=== PATIENT | female | born 1945 | race Caucasian/White ===

== ENCOUNTER 2016-08-31 09:02 | Day surgery (SDC) | payer MEDICARE ==
[2016-08-24 14:10] VITALS: BMI 40.0
[~2016-08-31 09:02] MED LIST: SODIUM CHLORIDE 0.9% 1,000 ML IV SCH; ceFAZolin 1,000 MG in SODIUM CHLORIDE 0.9% IRRIGATIO 250 ML IRRIGATION ONE; ceFAZolin 2 GM in SODIUM CHLORIDE 0.9% 100 ML IVPB ONE
[2016-08-31 09:35] VITALS: RESP 16; TEMP 98.2
[2016-08-31 09:52] LABS: Glucose,Whole Blood 107 mg/dL (75-99)
[2016-08-31] MEDS ORDERED: SODIUM CHLORIDE 0.9% 1,000 ML IV ONE (10:00)
[2016-08-31 10:01] LABS: Basophils % (A) 0 %; CH 23.2; CHCM 30.6; Eosinophils # (A) 0.2 k/uL (0-0.7); Eosinophils % (A) 3 %; HCT 37.6 % (34.0-46.0); HDW 3.09; HGB 11.5 gm/dL (11.4-16.0); Hypochromasia Marked; Luc # (Auto) 0.14; Luc % (Auto) 2; Lymphocytes # (A) 0.9 k/uL (1.0-4.8); Lymphocytes % (A) 14 %; MCH 23.3 pg (25.0-35.0); MCHC 30.5 g/dL (31.0-37.0); MCV 76.2 fL (80.0-100.0); Mean Platelet Volume 6.7; Microcytosis Slight; Monocytes # (A) 0.4 k/uL (0-1.0); Monocytes % (A) 7 %; Neutrophils # (A) 4.7 k/uL (1.3-7.7); Neutrophils % (A) 73 %; RBC 4.93 m/uL (3.80-5.40); RDW 15.5 % (11.5-15.5); WBC 6.5 k/uL (3.8-10.6)
[2016-08-31 10:27] LABS: Potassium 4.5 mmol/L (3.5-5.1)
[2016-08-31 10:58] LABS: INR 1.3 (<1.1); Prothrombin Time 12.6 sec (9.0-12.0)
[2016-08-31] MEDS ORDERED: fentaNYL (PF) 50 MCG/ML 2 ML AMP ONE (13:49)
[2016-08-31] MEDS ORDERED: LIDOCAINE 2% INJ 20 MG/ML SQ ONE (13:50)
[2016-08-31] MEDS ORDERED: fentaNYL (PF) 50 MCG/ML 2 ML AMP IV ONE (13:50)
[2016-08-31] MEDS ORDERED: ACETAMINOPHEN TAB 325 MG TAB PO PRN (14:13)
[2016-08-31 15:08] VITALS: PULSE 70
[2016-08-31 17:28] VITALS: BP 142/74
--- NOTE | 2016-08-31 21:28 | P.PCN ---
Date of Procedure: 08/31/16 Preoperative Diagnosis: Battery depletion Postoperative Diagnosis: The same Procedure(s) Performed: Generator change Description of Procedure: HISTORY: This is a 71-year-old female with history of permanent pacemaker implantation who has reached [facility] and was advised to have generator change. CONSENT: I have discussed the risks and benefits as related to the above mentioned procedure and both sedation/analgesia as well as necessary blood product administration. The patient has indicated understanding and acceptance of the risks of the procedure discussed. PROCEDURE: Patient was brought to the lab in a fasting state. Patient was given IV Versed and fentanyl for sedation. The skin over the existing pulse generator was infiltrated with lidocaine. An incision was made in the skin and was deepened until the pectoral fascia was exposed. Hemostasis was obtained. The existing pulse generator was pulled out of the pocket. The leads were disconnected and were checked for thresholds. THRESHOLDS: ATRIAL: Patient is in atrial fibrillation and thresholds were not measured VENTRICULAR: The minimum patient threshold was 1 V at pulse width of 0.5 ms. The impedance was 464 ohms. R-wave: 8.6 mV THE LEADS: ATRIAL: This is manufactured by [employer] model number is 5592 and the serial number is capital [id number] VENTRICULAR: This is manufactured by [employer]. Model number is 5092. Serial number is [id number] THE EXPLANTED DEVICE: This is manufactured by [employer]. Model number is [id number]. Serial number is [id number] THE NEW DEVICE: This is manufactured by [employer]. Model number is L101 and serial number is [id number] . The leads were then connected to a new pulse generator . Pacemaker seems to function normally. The pocket was irrigated with antibiotics. The pocket was closed in the usual fashion. Pectoral fascia was closed with 2-0 Prolene, the subcutaneous tissue was closed with 3-0 Prolene and the skin was closed with 4-0 Prolene. Patient tolerated the procedure well . Patient will be monitored on the telemetry unit for 2-3 hours. If stable patient be discharged home later today. PLAN: Continue prophylactic antibiotics. Resume home medication FALLOW UP: In one week in the office
== END 2016-08-31 17:28 | disposition home or self-care (01) ==
LOC: CATHEP 09:02
PROVIDERS: ATTEND Internal Medicine Cardiovascular Disease
DX: I50.42 Chronic combined systolic (congestive) and diastolic (congestive) heart failure (principal); Z45.010 Encounter for checking and testing of cardiac pacemaker pulse generator [battery]; I48.2 Chronic atrial fibrillation; Z79.01 Long term (current) use of anticoagulants; I42.8 Other cardiomyopathies; Z95.0 Presence of cardiac pacemaker; Z82.49 Family history of ischemic heart disease and other diseases of the circulatory system; Z87.891 Personal history of nicotine dependence; I25.10 Atherosclerotic heart disease of native coronary artery without angina pectoris; I10 Essential (primary) hypertension; E11.9 Type 2 diabetes mellitus without complications; Z79.84 Long term (current) use of oral hypoglycemic drugs; E78.5 Hyperlipidemia, unspecified; E78.00 Pure hypercholesterolemia, unspecified; Z79.899 Other long term (current) drug therapy; Z88.5 Allergy status to narcotic agent; Z88.8 Allergy status to other drugs, medicaments and biological substances
CPT/HCPCS: 33228; 80048; 85025; 85610; C1785; J2001; J0690; J3010

== ENCOUNTER 2017-04-25 07:35 | Emergency (ER) | payer MEDICARE ==
[2017-04-25] MEDS ORDERED: SODIUM CHLORIDE 0.9% 1,000 ML IV STA (07:58)
[2017-04-25 08:01] LABS: Glucose,Whole Blood 128 mg/dL (75-99)
--- NOTE | 2017-04-25 08:17 | ED ---
Dizziness HPI - General Chief Complaint: Dizziness Stated Complaint: Dizziness Time Seen by Provider: 04/25/17 07:50 Source: patient, RN notes reviewed Mode of arrival: wheelchair Limitations: no limitations - History of Present Illness Initial Comments: This is a 71-year-old female who presents with complaints of dizziness that has been going on for last couple days. She states that 2 days ago she had very dizzy when going to the bathroom and did fall hitting a toilet plunger. Complains of some left leg pain since that time. She complains of dizziness she denies any chest pain she did have some shortness of breath with it also. She denies any head neck or back pain she does have chronic pain however for fibromyalgia. She is concerned about a possible blood clot in the left leg due to the pain she's having. She does deny any palpitations. She does state her blood pressure was changed about a month ago and is not sure whether this has any bearing on it. She does have a pacemaker. This is relatively new. MD Complaint: dizziness, lightheadedness, other - Related Data Home Medications Medication Instructions Recorded Confirmed Atorvastatin [Lipitor] 20 mg PO HS 08/24/16 04/25/17 Furosemide [Lasix] 20 mg PO BID 08/24/16 04/25/17 Metoprolol Tartrate [Lopressor] 25 mg PO BID 08/24/16 04/25/17 Warfarin Sodium [Coumadin] 2.5 mg PO SUTUWETHSA 08/24/16 04/25/17 metFORMIN HCL [Glucophage] 500 mg PO BID 08/24/16 04/25/17 Ferrous Sulfate [Feosol] 325 mg PO DAILY 04/25/17 04/25/17 Mirabegron [Myrbetriq] 25 mg PO DAILY 04/25/17 04/25/17 Warfarin [Coumadin] 3.75 mg PO MOFR 04/25/17 04/25/17 Allergies Allergy/AdvReac Type Severity Reaction Status Date / Time codeine Allergy Unknown Verified 04/25/17 07:42 hydrocodone bitartrate Allergy Nausea & Verified 04/25/17 07:42 [From Vicodin] Vomiting & Diarrhea prednisone Allergy brought on Verified 04/25/17 07:42 diabetes cortisone injections Allergy brought on Uncoded 04/25/17 07:42 diabetes sedatives Allergy "I could Uncoded 04/25/17 07:42 not wake up" steroids Allergy Hallucinati Uncoded 04/25/17 07:42 ons Review of Systems ROS Statement: Those systems with pertinent positive or pertinent negative responses have been documented in the HPI. ROS Other: All systems not noted in ROS Statement are negative. Past Medical History Past Medical History: CVA/TIA, Diabetes Mellitus, Fibromyalgia, Osteoarthritis ( OA), Pneumonia, Skin Disorder Additional Past Medical History / Comment(s): hx hiatal hernia, diarrhea, leakage of urine/urgency, "dry skin", anemia, "gradiant under her heart and blood has to pump upward, not enough pressure" History of Any Multi-Drug Resistant Organisms: None Reported Past Surgical History: Appendectomy, Cholecystectomy, Heart Catheterization, Hysterectomy, Joint Replacement, Orthopedic Surgery, Pacemaker, Tonsillectomy, Tubal Ligation Additional Past Surgical History / Comment(s): cyril heel spurs, left shoulder rotator cuff, bone biopsy, cyril cataracts Past Anesthesia/Blood Transfusion Reactions: Previous Problems w/ Anesthesia, Family History of Problems w/ Anesthesia, Postoperative Nausea & Vomiting (PONV) Additional Past Anesthesia/Blood Transfusion Reaction / Comment(s): "could not wake for several days after knee replacement". brother PONV. Type of Cardiac Device: Permanent Pacemaker Device Placement Date:: 04/2009 Past Psychological History: No Psychological Hx Reported Smoking Status: Former smoker Past Alcohol Use History: None Reported Past Drug Use History: None Reported - Past Family History Father Family Medical History: Cancer General Exam - General Exam Comments Initial Comments: Is a well-developed well-nourished awake alert oriented 3 female Limitations: no limitations General appearance: alert, anxious Head exam: Present: atraumatic, normocephalic, normal inspection Eye exam: Present: normal appearance, PERRL, EOMI. Absent: scleral icterus, conjunctival injection, periorbital swelling ENT exam: Present: mucous membranes dry Neck exam: Present: normal inspection. Absent: tenderness, meningismus, lymphadenopathy Respiratory exam: Present: normal lung sounds bilaterally. Absent: respiratory distress, wheezes, rales, rhonchi, stridor Cardiovascular Exam: Present: regular rate, normal rhythm, normal heart sounds. Absent: systolic murmur, diastolic murmur, rubs, gallop, clicks GI/Abdominal exam: Present: soft, normal bowel sounds, other (Obese abdomen). Absent: distended, tenderness, guarding, rebound, rigid Extremities exam: Present: full ROM, tenderness, normal capillary refill, calf tenderness (Some left calf tenderness noted there is abrasion to the anterior distal left leg no active bleeding no step-off or crepitation. There is tenderness palpation of the lateral aspect of the distal thigh again no step- off or crepitation.). Absent: pedal edema, joint swelling Back exam: Present: normal inspection Neurological exam: Present: alert, oriented X3, CN II-XII intact Psychiatric exam: Present: normal affect, normal mood Skin exam: Present: warm, dry, intact, normal color. Absent: rash Course Vital Signs 04/25/17 04/25/17 04/25/17 07:37 08:37 09:37 Temperature 96.8 F L Pulse Rate 69 82 58 L Respiratory 16 20 18 Rate Blood Pressure 182/84 170/89 167/80 O2 Sat by Pulse 98 100 100 Oximetry 04/25/17 10:37 Temperature Pulse Rate 55 L Respiratory 18 Rate Blood Pressure 169/77 O2 Sat by Pulse 99 Oximetry EKG Findings - EKG Results: EKG: interpreted by SUSANA (Demand Pacemaker rhythm rate 64 QRS 76 QT since QTC of 426/439 left exodeviation LVH) Medical Decision Making - Medical Decision Making Patient is asymptomatic she was able ambulate without difficulty. Did have a long discussion with her regarding the findings she does not want to be admitted to the hospital. She will be discharged to follow-up with her doctor outpatient. Ultrasound showed no evidence of any blood clots. - Lab Data Result diagrams: 04/25/17 09:01 04/25/17 09:01 Lab Results 04/25/17 04/25/17 04/25/17 Range/Units 07:56 09:01 09:01 WBC 6.3 (3.8-10.6) k/uL RBC 4.38 (3.80-5.40) m/uL Hgb 10.5 L (11.4-16.0) gm/dL Hct 34.2 (34.0-46.0) % MCV 78.2 L (80.0-100.0) fL MCH 24.0 L (25.0-35.0) pg MCHC 30.7 L (31.0-37.0) g/dL RDW 16.5 H (11.5-15.5) % Plt Count 189 (150-450) k/uL Neutrophils % 74 % Lymphocytes % 14 % Monocytes % 6 % Eosinophils % 4 % Basophils % 1 % Neutrophils # 4.6 (1.3-7.7) k/uL Lymphocytes # 0.9 L (1.0-4.8) k/uL Monocytes # 0.4 (0-1.0) k/uL Eosinophils # 0.2 (0-0.7) k/uL Basophils # 0.0 (0-0.2) k/uL Hypochromasia Marked Anisocytosis Slight Microcytosis Slight D-Dimer (<0.60) mg/L FEU Sodium 140 (137-145) mmol/L Potassium 4.0 (3.5-5.1) mmol/L Chloride 105 (98-107) mmol/L Carbon Dioxide 26 (22-30) mmol/L Anion Gap 9 mmol/L BUN 16 (7-17) mg/dL Creatinine 0.93 (0.52-1.04) mg/dL Est GFR (MDRD) Af Amer >60 (>60 ml/min/1.73 sqM) Est GFR (MDRD) Non-Af 59 (>60 ml/min/1.73 sqM) Glucose 126 H (74-99) mg/dL POC Glucose (mg/dL) 128 H (75-99) mg/dL POC Glu Ingredient Scaler Helper ID Tom Concepcion Calcium 8.8 (8.4-10.2) mg/dL Magnesium 1.9 (1.6-2.3) mg/dL Total Bilirubin 0.7 (0.2-1.3) mg/dL AST 21 (14-36) U/L ALT 27 (9-52) U/L Alkaline Phosphatase 153 H (38-126) U/L Total Creatine Kinase (30-135) U/L CK-MB (CK-2) (0.0-2.4) ng/mL CK-MB (CK-2) Rel Index Troponin I (0.000-0.034) ng/mL NT-Pro-B Natriuret Pep pg/mL Total Protein 6.5 (6.3-8.2) g/dL Albumin 3.9 (3.5-5.0) g/dL 04/25/17 04/25/17 04/25/17 Range/Units 09:01 09:01 09:01 WBC (3.8-10.6) k/uL RBC (3.80-5.40) m/uL Hgb (11.4-16.0) gm/dL Hct (34.0-46.0) % MCV (80.0-100.0) fL MCH (25.0-35.0) pg MCHC (31.0-37.0) g/dL RDW (11.5-15.5) % Plt Count (150-450) k/uL Neutrophils % % Lymphocytes % % Monocytes % % Eosinophils % % Basophils % % Neutrophils # (1.3-7.7) k/uL Lymphocytes # (1.0-4.8) k/uL Monocytes # (0-1.0) k/uL Eosinophils # (0-0.7) k/uL Basophils # (0-0.2) k/uL Hypochromasia Anisocytosis Microcytosis D-Dimer <0.17 (<0.60) mg/L FEU Sodium (137-145) mmol/L Potassium (3.5-5.1) mmol/L Chloride (98-107) mmol/L Carbon Dioxide (22-30) mmol/L Anion Gap mmol/L BUN (7-17) mg/dL Creatinine (0.52-1.04) mg/dL Est GFR (MDRD) Af Amer (>60 ml/min/1.73 sqM) Est GFR (MDRD) Non-Af (>60 ml/min/1.73 sqM) Glucose (74-99) mg/dL POC Glucose (mg/dL) (75-99) mg/dL POC Glu Ingredient Scaler Helper ID Calcium (8.4-10.2) mg/dL Magnesium (1.6-2.3) mg/dL Total Bilirubin (0.2-1.3) mg/dL AST (14-36) U/L ALT (9-52) U/L Alkaline Phosphatase (38-126) U/L Total Creatine Kinase 61 (30-135) U/L CK-MB (CK-2) 0.6 (0.0-2.4) ng/mL CK-MB (CK-2) Rel Index 1.0 Troponin I <0.012 (0.000-0.034) ng/mL NT-Pro-B Natriuret Pep 2080 pg/mL Total Protein (6.3-8.2) g/dL Albumin (3.5-5.0) g/dL - Radiology Data Radiology results: report reviewed (I did review the imaging and report there is some evidence of some mild failure.), image reviewed Disposition Clinical Impression: Dizzy spells, Chronic anemia, Chronic heart failure, Contusion of leg Disposition: HOME SELF-CARE Condition: Good Instructions: Dizziness (ED), Contusion in Adults (ED) Referrals: Kamaljit Krause MD [Primary Care Provider] - 1-2 days
--- NOTE | 2017-04-25 08:24 | XR ---
EXAMINATION TYPE: XR chest 2V DATE OF EXAM: 04/25/2017 HISTORY: cough. REFERENCE: Previous study dated 05/29/2014. FINDINGS: There is a bipolar pacing device in place on the left. The heart is mildly enlarged. There is vascular congestion and mild interstitial change. There is sca rring in the left midlung. No pleural fluid is seen. IMPRESSION: FINDINGS MOST CONSISTENT WITH MILD HEART FAILURE.
--- NOTE | 2017-04-25 08:55 | US ---
EXAMINATION TYPE: US venous doppler duplex LE LT DATE OF EXAM: 04/25/2017 8:39 AM COMPARISON: None. CLINICAL HISTORY: Pain. Pt fell Monday and has a bruise. Leg pain. On Coumadin. Patient states hav ing a blood clot x 6 years ago but doesn't remember where SIDE PERFORMED: Left TECHNIQUE: The lower extremity deep venous system is examined utilizing real time linear array sonog kieran with graded compression, doppler sonography and color-flow sonography. VESSELS IMAGED: External Iliac Vein (EIV) Common Femoral Vein Deep Femoral Vein Greater Saphenous Vein * Femoral Vein Popliteal Vein Small Saphenous Vein * Proximal Calf Veins (* superficial vessels) No popliteal fossa lesion is seen. Left Leg: Appears negative for DVT IMPRESSION: THIS EXAMINATION IS NEGATIVE FOR DVT WITHIN THE LEFT LEG.
[2017-04-25 09:18] LABS: Anisocytosis Slight; Basophils % (A) 1 %; CH 23.3; CHCM 29.9; Eosinophils # (A) 0.2 k/uL (0-0.7); Eosinophils % (A) 4 %; HCT 34.2 % (34.0-46.0); HDW 3.04; HGB 10.5 gm/dL (11.4-16.0); Hypochromasia Marked; Luc # (Auto) 0.13; Luc % (Auto) 2; Lymphocytes # (A) 0.9 k/uL (1.0-4.8); Lymphocytes % (A) 14 %; MCHC 30.7 g/dL (31.0-37.0); MCV 78.2 fL (80.0-100.0); Mean Platelet Volume 6.5; Microcytosis Slight; Monocytes # (A) 0.4 k/uL (0-1.0); Monocytes % (A) 6 %; Neutrophils # (A) 4.6 k/uL (1.3-7.7); Neutrophils % (A) 74 %; RBC 4.38 m/uL (3.80-5.40); RDW 16.5 % (11.5-15.5); WBC 6.3 k/uL (3.8-10.6); WBC (Perox) 6.16
[2017-04-25 09:30] LABS: ALT 27 U/L (9-52); AST 21 U/L (14-36); Alkaline Phosphatase 153 U/L (38-126); Anion Gap 9 mmol/L; Blood Urea Nitrogen 16 mg/dL (7-17); Calcium 8.8 mg/dL (8.4-10.2); Carbon Dioxide 26 mmol/L (22-30); Chloride 105 mmol/L (98-107); Glucose 126 mg/dL (74-99); Magnesium 1.9 mg/dL (1.6-2.3); Non-African American GFR(MDRD) 59 (>60 ml/min/1.73 sqM); Sodium 140 mmol/L (137-145); Total Bilirubin 0.7 mg/dL (0.2-1.3); Total Protein 6.5 g/dL (6.3-8.2)
--- NOTE | 2017-04-25 10:12 | CT ---
EXAMINATION TYPE: CT brain wo con DATE OF EXAM: 04/25/2017 COMPARISON: NONE HISTORY: Dizziness CT DLP: 1108.4 mGycm. Automated Exposure Control for Dose Reduction was Utilized. TECHNIQUE: CT scan of the head is performed without contrast. FINDINGS: There is no acute intracranial hemorrhage or midline shift identified. There is diffuse v entricular and sulcal prominence consistent with diffuse age-related cerebral atrophy. There is low- attenuation in the periventricular white matter consistent with chronic small vessel ischemic change. The globes are intact. Minimal mucosal thickening is seen within the sphenoid sinuses. Atherosclero sis is noted of the intracranial vasculature. IMPRESSION: No acute intracranial hemorrhage or midline shift. There is diffuse age-related cerebra l atrophy and chronic small vessel ischemic change noted.
[2017-04-25 10:19] LABS: Creatine Kinase 61 U/L (30-135)
[2017-04-25 10:32] LABS: Creatine Kinase MB 0.6 ng/mL (0.0-2.4); Troponin I <0.012 ng/mL (0.000-0.034)
[2017-04-25 10:53] VITALS: RESP 18
[2017-04-25 11:57] VITALS: BP 154/70; PULSE 79; TEMP 96.9
== END 2017-04-25 12:07 | disposition home or self-care (01) ==
LOC: EC 07:35
DX: S80.12XA Contusion of left lower leg, initial encounter (principal); D64.9 Anemia, unspecified; I50.9 Heart failure, unspecified; E11.9 Type 2 diabetes mellitus without complications; M79.7 Fibromyalgia; M19.90 Unspecified osteoarthritis, unspecified site; Z95.0 Presence of cardiac pacemaker; Z86.73 Personal history of transient ischemic attack (TIA), and cerebral infarction without residual deficits; Z87.891 Personal history of nicotine dependence; Z79.01 Long term (current) use of anticoagulants; Z79.84 Long term (current) use of oral hypoglycemic drugs; Z79.899 Other long term (current) drug therapy; Z88.5 Allergy status to narcotic agent; Z88.8 Allergy status to other drugs, medicaments and biological substances; W01.198A Fall on same level from slipping, tripping and stumbling with subsequent striking against other object, initial encounter; Y93.89 Activity, other specified; Y92.002 Bathroom of unspecified non-institutional (private) residence as the place of occurrence of the external cause
CPT/HCPCS: 36415; 70450; 71020; 80053; 82550; 82553; 83735; 83880; 84484; 85025; 85379; 93005; 99284

== ENCOUNTER → 2018-04-25 | Outpatient (CLI) | payer MEDICARE ==
[2018-04-25 10:45] LABS: Anisocytosis Slight; Basophils % (A) 0 %; Eosinophils # (A) 0.3 k/uL (0-0.7); Eosinophils % (A) 5 %; HCT 36.1 % (34.0-46.0); HGB 10.8 gm/dL (11.4-16.0); Hypochromasia Marked; Lymphocytes # (A) 0.9 k/uL (1.0-4.8); Lymphocytes % (A) 17 %; MCH 23.4 pg (25.0-35.0); MCHC 29.8 g/dL (31.0-37.0); MCV 78.5 fL (80.0-100.0); Mean Platelet Volume 6.7; Microcytosis Slight; Monocytes # (A) 0.4 k/uL (0-1.0); Monocytes % (A) 7 %; Neutrophils # (A) 3.5 k/uL (1.3-7.7); Neutrophils % (A) 68 %; Platelet Count 161 k/uL (150-450); RDW 16.8 % (11.5-15.5); WBC 5.1 k/uL (3.8-10.6)
[2018-04-25 10:58] LABS: Albumin 3.8 g/dL (3.5-5.0); Calcium 8.8 mg/dL (8.4-10.2); Potassium 3.9 mmol/L (3.5-5.1); Total Bilirubin 1.1 mg/dL (0.2-1.3); Total Protein 6.5 g/dL (6.3-8.2)
[2018-04-25 22:56] LABS: Hemoglobin A1C 6.8 % (4.0-6.0)
== END | disposition home or self-care (01) ==
LOC: LABWHC1 10:21
PROVIDERS: ATTEND Internal Medicine
DX: E78.2 Mixed hyperlipidemia (principal); E03.9 Hypothyroidism, unspecified; E11.65 Type 2 diabetes mellitus with hyperglycemia; I10 Essential (primary) hypertension
CPT/HCPCS: 36415; 80053; 80061; 83036; 84443; 85025

== ENCOUNTER 2018-10-13 21:03 | Observation (INO) | payer MEDICARE ==
--- NOTE | 2018-10-13 21:15 | ED ---
Syncope HPI - General Chief Complaint: Syncope Stated Complaint: Syncope Time Seen by Provider: 10/13/18 21:14 Source: EMS Mode of arrival: EMS Limitations: no limitations - History of Present Illness Initial Comments: Livier is a pleasant 73-year-old female with history of atrial fibrillation for which she has a demand pacemaker in place. Patient presents the emergency department today via EMS for evaluation of a syncopal episode. Patient reports she was in her usual state of health throughout the day today, this evening she was in the local grocery store shopping, she states she recalls feeling well she recalls shopping for supplies to make in [employer]. She states she began to feel somewhat lightheaded and decided she wanted to find a binge to sit down on the next thing she knows she was on the floor. Family at bedside state that they were called by a witness who said the patient just fell forward and was unconscious. There is no seizure-like activity. She regained consciousness and reported she felt somewhat nauseated but that passed. Patient did have a small abrasion to her left ring finger but no other injuries. Patient reports she has never passed out in the past. She has no history of syncope she has been evaluated for dizziness and lightheadedness but reports she was not feeling dizzy or lightheaded until immediately prior to this event. - Related Data Home Medications Medication Instructions Recorded Confirmed Atorvastatin [Lipitor] 20 mg PO HS 08/24/16 04/25/17 Furosemide [Lasix] 20 mg PO BID 08/24/16 04/25/17 Metoprolol Tartrate [Lopressor] 25 mg PO BID 08/24/16 04/25/17 Warfarin Sodium [Coumadin] 2.5 mg PO SUTUWETHSA 08/24/16 04/25/17 metFORMIN HCL [Glucophage] 500 mg PO BID 08/24/16 04/25/17 Ferrous Sulfate [Feosol] 325 mg PO DAILY 04/25/17 04/25/17 Mirabegron [Myrbetriq] 25 mg PO DAILY 04/25/17 04/25/17 Warfarin [Coumadin] 3.75 mg PO MOFR 04/25/17 04/25/17 Allergies Allergy/AdvReac Type Severity Reaction Status Date / Time codeine Allergy Unknown Verified 04/25/17 07:42 hydrocodone bitartrate Allergy Nausea & Verified 04/25/17 07:42 [From Vicodin] Vomiting & Diarrhea prednisone Allergy brought on Verified 04/25/17 07:42 diabetes cortisone injections Allergy brought on Uncoded 04/25/17 07:42 diabetes sedatives Allergy "I could Uncoded 04/25/17 07:42 not wake up" steroids Allergy Hallucinati Uncoded 04/25/17 07:42 ons Review of Systems ROS Statement: Those systems with pertinent positive or pertinent negative responses have been documented in the HPI. ROS Other: All systems not noted in ROS Statement are negative. Past Medical History Past Medical History: Cancer, CVA/TIA, Diabetes Mellitus, Fibromyalgia, Osteoarthritis (OA), Pneumonia, Skin Disorder Additional Past Medical History / Comment(s): hx hiatal hernia, diarrhea, leakage of urine/urgency, "dry skin", anemia, skin cancer History of Any Multi-Drug Resistant Organisms: None Reported Past Surgical History: Appendectomy, Cholecystectomy, Heart Catheterization, Hysterectomy, Joint Replacement, Orthopedic Surgery, Pacemaker, Tonsillectomy, Tubal Ligation Additional Past Surgical History / Comment(s): cyril heel spurs, left shoulder rotator cuff, bone biopsy, cyril cataracts Past Anesthesia/Blood Transfusion Reactions: Previous Problems w/ Anesthesia, Family History of Problems w/ Anesthesia, Postoperative Nausea & Vomiting (PONV) Additional Past Anesthesia/Blood Transfusion Reaction / Comment(s): "could not wake for several days after knee replacement". brother PONV. Type of Cardiac Device: Permanent Pacemaker Device Placement Date:: 04/2009 Past Psychological History: No Psychological Hx Reported Smoking Status: Former smoker Past Alcohol Use History: None Reported Past Drug Use History: None Reported - Past Family History Father Family Medical History: Cancer General Exam - General Exam Comments Initial Comments: Physical Exam GENERAL: Patient is well-developed and well-nourished. Patient is nontoxic and well-hydrated and is in no distress. HENT: Normocephalic, Atraumatic. EYES: PERRL, EOMI PULMONARY: Unlabored respirations. No audible rales rhonchi or wheezing was noted. CARDIOVASCULAR: Irregularly irregular Pacemaker present left chest Warm and well-perfused extremities ABDOMEN: Soft and nontender with normal bowel sounds. SKIN: Skin is clear with no lesions or rashes and otherwise unremarkable. Small abrasion to left ring finger Contusions on bilateral arms multiple stages of healing : Deferred NEUROLOGIC: Patient is alert and oriented x3. Moving all extremities spontaneously Cranial nerves II through XII grossly intact MUSCULOSKELETAL: Normal extremities with adequate strength and full range of motion. No lower extremity swelling or edema. No calf tenderness. PSYCHIATRIC: Normal psychiatric evaluation. Limitations: no limitations Limitations: no limitations Course Vital Signs 10/13/18 10/13/18 10/13/18 21:07 22:34 23:30 Temperature 97.8 F Pulse Rate 63 68 63 Respiratory 18 18 15 Rate Blood Pressure 166/88 150/89 154/84 O2 Sat by Pulse 97 100 98 Oximetry EKG Findings - EKG Comments: EKG Findings:: EKG obtained at 9:14 PM, rate of 61 and rhythm is atrial fibrillation or noted to be frequent ventricular paced complexes, there is a left axis, no acute ST elevations or depressions there is no evidence of acute ischemia or infarction. Medical Decision Making - Medical Decision Making the patient was seen and evaluated history is obtained from the patient and EMS as well as family at bedside Patient with a cardiac history presenting with a syncopal episode which was witnessed patient has no head or facial trauma Cardiac workup was initiated Troponin negative electrolytes within normal limits her no acute findings on chest x-ray no sign EKG is nonischemic Given the patient's advanced age and syncopal event I do feel there could be a cardiac component she would benefit from further monitoring and evaluation by cardiology. Patient is agreeable to this. Patient care was discussed with her primary care physician Dr. Krause who accepts the admission with consult to cardiology. - Lab Data Result diagrams: 10/13/18 21:20 10/13/18 21:20 Lab Results 10/13/18 10/13/18 10/13/18 Range/Units 21:20 21:20 21:20 WBC 5.8 (3.8-10.6) k/uL RBC 4.68 (3.80-5.40) m/uL Hgb 11.2 L (11.4-16.0) gm/dL Hct 36.0 (34.0-46.0) % MCV 76.8 L (80.0-100.0) fL MCH 23.9 L (25.0-35.0) pg MCHC 31.1 (31.0-37.0) g/dL RDW 16.9 H (11.5-15.5) % Plt Count 178 (150-450) k/uL Neutrophils % 75 % Lymphocytes % 12 % Monocytes % 6 % Eosinophils % 5 % Basophils % 1 % Neutrophils # 4.4 (1.3-7.7) k/uL Lymphocytes # 0.7 L (1.0-4.8) k/uL Monocytes # 0.4 (0-1.0) k/uL Eosinophils # 0.3 (0-0.7) k/uL Basophils # 0.0 (0-0.2) k/uL Hypochromasia Marked Anisocytosis Slight Microcytosis Slight PT (9.0-12.0) sec INR (<1.2) APTT (22.0-30.0) sec Sodium 139 (137-145) mmol/L Potassium (3.5-5.1) mmol/L Chloride 105 (98-107) mmol/L Carbon Dioxide 25 (22-30) mmol/L Anion Gap 9 mmol/L BUN 18 H (7-17) mg/dL Creatinine 0.95 (0.52-1.04) mg/dL Est GFR (CKD-EPI)AfAm 68 (>60 ml/min/1.73 sqM) Est GFR (CKD-EPI)NonAf 59 (>60 ml/min/1.73 sqM) Glucose 154 H (74-99) mg/dL Calcium 9.0 (8.4-10.2) mg/dL Magnesium 1.9 (1.6-2.3) mg/dL Total Bilirubin 1.2 (0.2-1.3) mg/dL AST 23 (14-36) U/L ALT 30 (9-52) U/L Alkaline Phosphatase 131 H (38-126) U/L Total Creatine Kinase 53 (30-135) U/L CK-MB (CK-2) 0.9 (0.0-2.4) ng/mL CK-MB (CK-2) Rel Index 1.7 Troponin I <0.012 (0.000-0.034) ng/mL Total Protein 7.2 (6.3-8.2) g/dL Albumin 4.0 (3.5-5.0) g/dL 10/13/18 Range/Units 21:20 WBC (3.8-10.6) k/uL RBC (3.80-5.40) m/uL Hgb (11.4-16.0) gm/dL Hct (34.0-46.0) % MCV (80.0-100.0) fL MCH (25.0-35.0) pg MCHC (31.0-37.0) g/dL RDW (11.5-15.5) % Plt Count (150-450) k/uL Neutrophils % % Lymphocytes % % Monocytes % % Eosinophils % % Basophils % % Neutrophils # (1.3-7.7) k/uL Lymphocytes # (1.0-4.8) k/uL Monocytes # (0-1.0) k/uL Eosinophils # (0-0.7) k/uL Basophils # (0-0.2) k/uL Hypochromasia Anisocytosis Microcytosis PT 22.4 H (9.0-12.0) sec INR 2.3 H (<1.2) APTT 30.5 H (22.0-30.0) sec Sodium (137-145) mmol/L Potassium (3.5-5.1) mmol/L Chloride (98-107) mmol/L Carbon Dioxide (22-30) mmol/L Anion Gap mmol/L BUN (7-17) mg/dL Creatinine (0.52-1.04) mg/dL Est GFR (CKD-EPI)AfAm (>60 ml/min/1.73 sqM) Est GFR (CKD-EPI)NonAf (>60 ml/min/1.73 sqM) Glucose (74-99) mg/dL Calcium (8.4-10.2) mg/dL Magnesium (1.6-2.3) mg/dL Total Bilirubin (0.2-1.3) mg/dL AST (14-36) U/L ALT (9-52) U/L Alkaline Phosphatase (38-126) U/L Total Creatine Kinase (30-135) U/L CK-MB (CK-2) (0.0-2.4) ng/mL CK-MB (CK-2) Rel Index Troponin I (0.000-0.034) ng/mL Total Protein (6.3-8.2) g/dL Albumin (3.5-5.0) g/dL Disposition Clinical Impression: Syncope and collapse Disposition: ADMITTED IP TO THIS [facility] Condition: Stable Is patient prescribed a controlled substance at d/c from ED?: No Referrals: Kamaljit Krause MD [Primary Care Provider] - 1-2 days
[2018-10-13] MEDS ORDERED: SODIUM CHLORIDE 0.9% 500 ML 500 ML IV STA (21:20)
[2018-10-13 21:37] LABS: Anisocytosis Slight; Basophils % (A) 1 %; Eosinophils # (A) 0.3 k/uL (0-0.7); Eosinophils % (A) 5 %; HGB 11.2 gm/dL (11.4-16.0); Hypochromasia Marked; Lymphocytes # (A) 0.7 k/uL (1.0-4.8); Lymphocytes % (A) 12 %; MCH 23.9 pg (25.0-35.0); MCHC 31.1 g/dL (31.0-37.0); MCV 76.8 fL (80.0-100.0); Mean Platelet Volume 6.4; Microcytosis Slight; Monocytes # (A) 0.4 k/uL (0-1.0); Monocytes % (A) 6 %; Neutrophils # (A) 4.4 k/uL (1.3-7.7); Neutrophils % (A) 75 %; Platelet Count 178 k/uL (150-450); RBC 4.68 m/uL (3.80-5.40); RDW 16.9 % (11.5-15.5); WBC 5.8 k/uL (3.8-10.6)
[2018-10-13 21:46] LABS: INR 2.3 (<1.2); Partial Thromboplastin Time 30.5 sec (22.0-30.0); Prothrombin Time 22.4 sec (9.0-12.0)
[2018-10-13 21:52] LABS: Creatine Kinase 53 U/L (30-135); Magnesium 1.9 mg/dL (1.6-2.3); Total Bilirubin 1.2 mg/dL (0.2-1.3); Total Protein 7.2 g/dL (6.3-8.2)
--- NOTE | 2018-10-13 21:56 | XR ---
EXAMINATION TYPE: XR chest 2V DATE OF EXAM: 10/13/2018 COMPARISON: 04/25/2017 HISTORY: Syncope TECHNIQUE: Frontal and lateral views of the chest are obtained. FINDINGS: Heart is enlarged. There is mild pulmonary congestion. There is coarsening of interstitial markings. There are chest leads. There is left axillary pacemaker with the lead tips in the right ve ntricle. The bones are osteopenic. IMPRESSION: Cardiomegaly and pulmonary fibrosis. Pulmonary congestion without overt heart failure. N o pleural fluid seen to suggest heart failure. No change compared to last exam.
[2018-10-13 22:04] LABS: Creatine Kinase MB 0.9 ng/mL (0.0-2.4); Troponin I <0.012 ng/mL (0.000-0.034)
[2018-10-14 03:49] LABS: Creatine Kinase 52 U/L (30-135)
[2018-10-14 04:03] LABS: Creatine Kinase MB 1.3 ng/mL (0.0-2.4); Troponin I <0.012 ng/mL (0.000-0.034)
[2018-10-14 07:41] LABS: Glucose,Whole Blood 120 mg/dL (75-99)
[2018-10-14] MEDS: INSULIN ASPART (NovoLOG) 100 UNIT/ML VIAL SQ SCH ×4 (08:58→19:44)
--- NOTE | 2018-10-14 10:54 | P.CRDCN ---
History of Present Illness Consult date: 10/14/18 Requesting physician: Kamaljit Krause Consult reason: sycope Chief complaint: Syncope History of present illness: This is a pleasant 73-year-old female who follows regularly with Dr. Ruby in the office. She has a known history of hypertension, hyperlipidemia, diabetes, hypertrophic obstructive cardiomyopathy. Prior pacemaker implantation, chronic persistent atrial fibrillation on Coumadin for anticoagulation. She presents to the hospital following a syncopal episode. According to the patient, she was shopping at [employer], upon walking into the store she states she felt some mild dizziness but not of any significance. As she was shopping in the [employer], she states that she felt as though she needed to sit down or she may pass out. The next thing she recalls is someone over top of her attempting to wake her up. She was on the floor at that time, apparently had fallen prone onto the floor. Patient states she was alert and oriented upon wakening, no loss of bowel or bladder function. EMS was then called. Patient at that time experienced some mild nausea. Her blood pressure on EMS arrival was 168/98. Heart rate in the 60s to 70s. Blood sugar was also checked which came back to be around 150. Her EKG on arrival here showed atrial fibrillation with occasional PVC, controlled ventricular response. Chest x-ray showed cardiomegaly and pulmonary fibrosis. Pulmonary congestion without overt heart failure. Blood pressure here 144/80 with a heart rate in the 60s, 97% on room air. White blood cell count 5.8, hemoglobin 11.2, platelet count 178. INR 2.3. Sodium 139, potassium pending. BUN 18 and creatinine 0.9. Troponins are negative 2. At the time of my examination this morning, patient denies any dizziness or lightheadedness. Past Medical History Past Medical History: Cancer, CVA/TIA, Diabetes Mellitus, Fibromyalgia, Osteoarthritis (OA), Pneumonia, Skin Disorder Additional Past Medical History / Comment(s): hx hiatal hernia, diarrhea, leakage of urine/urgency, "dry skin", anemia, skin cancer History of Any Multi-Drug Resistant Organisms: None Reported Past Surgical History: Appendectomy, Cholecystectomy, Heart Catheterization, Hysterectomy, Joint Replacement, Orthopedic Surgery, Pacemaker, Tonsillectomy, Tubal Ligation Additional Past Surgical History / Comment(s): cyril heel spurs, left shoulder rotator cuff, bone biopsy, cyirl cataracts Past Anesthesia/Blood Transfusion Reactions: Previous Problems w/ Anesthesia, Family History of Problems w/ Anesthesia, Postoperative Nausea & Vomiting (PONV) Additional Past Anesthesia/Blood Transfusion Reaction / Comment(s): "could not wake for several days after knee replacement". brother PONV. Type of Cardiac Device: Permanent Pacemaker Device Placement Date:: 04/2009 Smoking Status: Former smoker - Past Family History Father Family Medical History: Cancer Medications and Allergies Home Medications Medication Instructions Recorded Confirmed Type Atorvastatin [Lipitor] 20 mg PO HS 08/24/16 10/14/18 History Furosemide [Lasix] 20 mg PO BID 08/24/16 10/14/18 History Metoprolol Tartrate [Lopressor] 25 mg PO BID 08/24/16 10/14/18 History Warfarin Sodium [Coumadin] 2.5 mg PO HS 08/24/16 10/14/18 History metFORMIN HCL [Glucophage] 500 mg PO DAILY 08/24/16 10/14/18 History Ferrous Sulfate [Feosol] 325 mg PO DAILY 04/25/17 10/14/18 History Mirabegron [Myrbetriq] 25 mg PO DAILY 04/25/17 10/14/18 History Allergies Allergy/AdvReac Type Severity Reaction Status Date / Time codeine Allergy Unknown Verified 10/14/18 01:53 hydrocodone bitartrate Allergy Nausea & Verified 10/14/18 01:53 [From Vicodin] Vomiting & Diarrhea prednisone Allergy brought on Verified 10/14/18 01:53 diabetes cortisone injections Allergy brought on Uncoded 10/14/18 01:53 diabetes sedatives Allergy "I could Uncoded 10/14/18 01:53 not wake up" steroids Allergy Hallucinati Uncoded 10/14/18 01:53 ons Physical Exam Vitals: Vital Signs Temp Pulse Pulse Pulse Resp BP BP 10/14/18 08:00 97.5 F L 62 16 144/80 10/14/18 03:30 16 10/14/18 03:02 97.9 F 69 15 172/82 10/14/18 01:19 97.5 F L 63 17 160/82 10/13/18 23:30 63 15 154/84 10/13/18 22:34 68 18 150/89 10/13/18 21:07 97.8 F 63 18 166/88 Pulse Ox 10/14/18 08:00 97 10/14/18 03:30 10/14/18 03:02 97 10/14/18 01:19 96 10/13/18 23:30 98 10/13/18 22:34 100 10/13/18 21:07 97 Intake and Output 10/13/18 10/14/18 10/14/18 22:59 06:59 14:59 Other: Voiding Method Toilet Weight 131.542 kg PHYSICAL EXAMINATION: GENERAL: 73-year-old female in no acute distress at the time of my examination HEENT: Head is atraumatic, normocephalic. Pupils equal, round. Sclera anicteric. Conjunctiva are clear. Mucous membranes of the mouth are moist. Neck is supple. There is no elevated jugular venous pressure. Right carotid bruit is heard. HEART EXAMINATION: Heart S1 and S2 irregularly irregular, systolic murmur is heard. CHEST EXAMINATION: Lungs are clear to auscultation and precussion. No chest wall tenderness is noted on palpation or with deep breathing. ABDOMEN: Soft, nontender. Bowel sounds are heard. No organomegaly noted. EXTREMITIES: 2+ peripheral pulses with no evidence of peripheral edema and no calf tenderness noted. NEUROLOGIC patient is awake, alert and oriented 3 . . Results 10/13/18 21:20 10/13/18 21:20 Cardiac Enzymes 10/13/18 10/13/18 10/14/18 Range/Units 21:20 21:20 03:18 AST 23 (14-36) U/L CK-MB (CK-2) 0.9 1.3 (0.0-2.4) ng/mL Troponin I <0.012 <0.012 (0.000-0.034) ng/mL Coagulation 10/13/18 Range/Units 21:20 PT 22.4 H (9.0-12.0) sec APTT 30.5 H (22.0-30.0) sec CBC 10/13/18 Range/Units 21:20 WBC 5.8 (3.8-10.6) k/uL RBC 4.68 (3.80-5.40) m/uL Hgb 11.2 L (11.4-16.0) gm/dL Hct 36.0 (34.0-46.0) % Plt Count 178 (150-450) k/uL Comprehensive Metabolic Panel 10/13/18 Range/Units 21:20 Sodium 139 (137-145) mmol/L Potassium (3.5-5.1) mmol/L Chloride 105 (98-107) mmol/L Carbon Dioxide 25 (22-30) mmol/L BUN 18 H (7-17) mg/dL Creatinine 0.95 (0.52-1.04) mg/dL Glucose 154 H (74-99) mg/dL Calcium 9.0 (8.4-10.2) mg/dL AST 23 (14-36) U/L ALT 30 (9-52) U/L Alkaline Phosphatase 131 H (38-126) U/L Total Protein 7.2 (6.3-8.2) g/dL Albumin 4.0 (3.5-5.0) g/dL Current Medications Generic Name Dose Route Start Last Admin Trade Name Freq PRN Reason Stop Dose Admin Aspirin 325 mg 10/15/18 09:00 Aspirin PO DAILY [facility] Atorvastatin Calcium 20 mg 10/14/18 21:00 Lipitor PO HS [facility] Furosemide 20 mg 10/14/18 09:00 Lasix PO BID [facility] Insulin Aspart 0 unit 10/14/18 07:30 10/14/18 08:58 Novolog SQ Not Given ACHS [facility] Protocol Warfarin Sodium 3.75 mg 10/15/18 18:00 Coumadin PO [email or web address] [facility] Warfarin Sodium 2.5 mg 10/14/18 18:00 Coumadin PO [email or web address] [facility] Intake and Output 10/13/18 10/14/18 10/14/18 22:59 06:59 14:59 Other: Voiding Method Toilet Weight 131.542 kg 10/13/18 21:20 10/13/18 21:20 EKG Interpretations (text) EKG shows atrial fibrillation with a controlled ventricular response, frequent PVCs. Assessment and Plan Plan: Assessment and plan #1 syncope, rule out cardiac causes. We will check the patient's pacemaker as well as orthostatic heart rate and blood pressure every shift. #2 hypertension #3 diabetes #4 hyperlipidemia #5 sinus syndrome with prior pacemaker implantation #6 systolic ejection murmur suggestive of possible aortic stenosis #7 chronic persistent atrial fibrillation on Coumadin for anticoagulation #8 HOCM Plan Patient had an echocardiogram with Doppler study performed 3 weeks ago in the office, we will request a copy of this. We will also check her pacemaker for appropriate function. Check orthostatic heart rate and blood pressure every shift. Patient has been on Coumadin for her atrial fibrillation, I did have a lengthy discussion with her regarding the new her anticoagulants, she is willing to try dose. Continue with IV fluids. We will initiate Eliquis and check regarding coverage. Further recommendations to follow. DNP note has been reviewed, I agree with a documented findings and plan of care. Patient was seen and examined.
[2018-10-14 11:02] LABS: Creatine Kinase 52 U/L (30-135)
[2018-10-14] MEDS: FUROSEMIDE 20 MG TAB PO SCH ×2 (11:08→20:10)
[2018-10-14 11:16] LABS: Creatine Kinase MB 1.3 ng/mL (0.0-2.4); Troponin I <0.012 ng/mL (0.000-0.034)
[2018-10-14 11:37] LABS: Glucose,Whole Blood 127 mg/dL (75-99)
--- NOTE | 2018-10-14 13:12 | P.HPIM ---
History of Present Illness H&P Date: 10/14/18 Livier Kilgore is a 73-year-old female who was brought to [facility] emergency room via EMS after having an episode of syncope with collapse at a local store. Patient was found on the floor unconscious she stated that she felt dizzy and the next thing she knows was somebody standing over her trying to wake her up she is not very clear on the amount of time that she was unconscious. 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 On presentation to emergency room patient was alert and oriented in no apparent distress and glucose level was 150 and research assoc showed atrial fibrillation with a heart rate of 70 At this time patient is alert and oriented 3 in no apparent distress she denies any dizziness she was able to walk to the bathroom and back this morning without any dizziness or lightheadedness no new episodes of the syncope or presyncope. Past Medical History Past Medical History: Cancer, CVA/TIA, Diabetes Mellitus, Fibromyalgia, Osteoarthritis (OA), Pneumonia, Skin Disorder Additional Past Medical History / Comment(s): hx hiatal hernia, diarrhea, leakage of urine/urgency, "dry skin", anemia, skin cancer History of Any Multi-Drug Resistant Organisms: None Reported Past Surgical History: Appendectomy, Cholecystectomy, Heart Catheterization, Hysterectomy, Joint Replacement, Orthopedic Surgery, Pacemaker, Tonsillectomy, Tubal Ligation Additional Past Surgical History / Comment(s): cyril heel spurs, left shoulder rotator cuff, bone biopsy, cyril cataracts Past Anesthesia/Blood Transfusion Reactions: Previous Problems w/ Anesthesia, Family History of Problems w/ Anesthesia, Postoperative Nausea & Vomiting (PONV) Additional Past Anesthesia/Blood Transfusion Reaction / Comment(s): "could not wake for several days after knee replacement". brother PONV. Type of Cardiac Device: Permanent Pacemaker Device Placement Date:: 04/2009 Smoking Status: Former smoker - Past Family History Father Family Medical History: Cancer Medications and Allergies Home Medications Medication Instructions Recorded Confirmed Type Atorvastatin [Lipitor] 20 mg PO HS 08/24/16 10/14/18 History Furosemide [Lasix] 20 mg PO BID 08/24/16 10/14/18 History Metoprolol Tartrate [Lopressor] 25 mg PO BID 08/24/16 10/14/18 History Warfarin Sodium [Coumadin] 2.5 mg PO HS 08/24/16 10/14/18 History metFORMIN HCL [Glucophage] 500 mg PO DAILY 08/24/16 10/14/18 History Ferrous Sulfate [Feosol] 325 mg PO DAILY 04/25/17 10/14/18 History Mirabegron [Myrbetriq] 25 mg PO DAILY 04/25/17 10/14/18 History Allergies Allergy/AdvReac Type Severity Reaction Status Date / Time codeine Allergy Unknown Verified 10/14/18 01:53 hydrocodone bitartrate Allergy Nausea & Verified 10/14/18 01:53 [From Vicodin] Vomiting & Diarrhea prednisone Allergy brought on Verified 10/14/18 01:53 diabetes cortisone injections Allergy brought on Uncoded 10/14/18 01:53 diabetes sedatives Allergy "I could Uncoded 10/14/18 01:53 not wake up" steroids Allergy Hallucinati Uncoded 10/14/18 01:53 ons Physical Exam Vitals: Vital Signs Temp Pulse Pulse Pulse Pulse Pulse Pulse 10/14/18 12:00 97.4 F L 10/14/18 11:53 62 10/14/18 11:30 73 79 69 10/14/18 08:00 97.5 F L 62 10/14/18 03:30 10/14/18 03:02 97.9 F 69 10/14/18 01:19 97.5 F L 63 10/13/18 23:30 63 10/13/18 22:34 68 10/13/18 21:07 97.8 F 63 Resp BP BP BP BP BP Pulse Ox 10/14/18 12:00 97 10/14/18 11:53 16 10/14/18 11:30 158/83 144/84 139/82 10/14/18 08:00 16 144/80 97 10/14/18 03:30 16 10/14/18 03:02 15 172/82 97 10/14/18 01:19 17 160/82 96 10/13/18 23:30 15 154/84 98 10/13/18 22:34 18 150/89 100 10/13/18 21:07 18 166/88 97 Intake and Output 10/13/18 10/14/1810/14/19 22:59 06:59 14:59 Other: Voiding Method Toilet Weight 131.542 kg In general patient is alert and oriented 3 in no apparent distress HEENT head normocephalic and atraumatic Neck is supple no JVD no goiter no lymphadenopathy Chest exam reveals a few scattered crackles no wheezing Cardiac exam reveals irregular heart sounds S1 and S2 no gallops no murmurs Abdomen is soft nontender no organomegaly with normal bowel sounds Extremity exam reveals minimal pretibial edema with skin changes, pulses palpable bilaterally Neurological examination reveals no gross focal deficit Results CBC & Chem 7: 10/13/18 21:20 10/13/18 21:20 Labs: Abnormal Lab Results - Last 24 Hours (Table) 10/13/18 10/13/18 10/13/18 Range/Units 21:20 21:20 21:20 Hgb 11.2 L (11.4-16.0) gm/dL MCV 76.8 L (80.0-100.0) fL MCH 23.9 L (25.0-35.0) pg RDW 16.9 H (11.5-15.5) % Lymphocytes # 0.7 L (1.0-4.8) k/uL PT 22.4 H (9.0-12.0) sec INR 2.3 H (<1.2) APTT 30.5 H (22.0-30.0) sec BUN 18 H (7-17) mg/dL Glucose 154 H (74-99) mg/dL POC Glucose (mg/dL) (75-99) mg/dL Alkaline Phosphatase 131 H (38-126) U/L 10/14/18 10/14/18 Range/Units 07:39 11:35 Hgb (11.4-16.0) gm/dL MCV (80.0-100.0) fL MCH (25.0-35.0) pg RDW (11.5-15.5) % Lymphocytes # (1.0-4.8) k/uL PT (9.0-12.0) sec INR (<1.2) APTT (22.0-30.0) sec BUN (7-17) mg/dL Glucose (74-99) mg/dL POC Glucose (mg/dL) 120 H 127 H (75-99) mg/dL Alkaline Phosphatase (38-126) U/L Thrombosis Risk Factor Assmnt - Choose All That Apply Each Risk Factor Represents 3 Points: Age 75 years or older Thrombosis Risk Factor Assessment Total Risk Factor Score: 3 Thrombosis Risk Factor Assessment Level: Moderate Risk Assessment and Plan Plan: #1 syncopal episode with fall to the floor and loss of consciousness #2 underlying history of atrial fibrillation #3 underlying history of hypertrophic obstructive cardiomyopathy #4 underlying history of hypertension #5 underlying history of hyperlipidemia #6 underlying history of sick sinus syndrome with pacemaker placement At this time patient is admitted to the observation unit, she is maintained on telemetry, will obtain echocardiogram results from cardiology office Will obtain pacemaker interrogation Cardiology consult requested Will follow closely
[2018-10-14 16:48] LABS: Glucose,Whole Blood 153 mg/dL (75-99)
[2018-10-14 16:50] VITALS: RESP 18
[2018-10-14] MEDS ORDERED: WARFARIN 2.5 MG TAB PO SCH (18:00)
[2018-10-14 19:43] LABS: Glucose,Whole Blood 127 mg/dL (75-99)
[2018-10-14] MEDS: APIXABAN 5 MG TAB PO SCH (20:11)
[2018-10-14] MEDS ORDERED: ATORVASTATIN 20 MG TAB PO SCH (21:00)
[2018-10-15 03:15] LABS: Cholesterol 118 mg/dL (<200); HDL Cholesterol 39 mg/dL (40-60); LDL Cholesterol,Calculated 70 mg/dL (0-99); Triglycerides 45 mg/dL (<150)
[2018-10-15 06:39] LABS: Glucose,Whole Blood 123 mg/dL (75-99)
[2018-10-15] MEDS: INSULIN ASPART (NovoLOG) 100 UNIT/ML VIAL SQ SCH ×2 (08:09→11:41)
[2018-10-15] MEDS ORDERED: ASPIRIN 325 MG TAB PO SCH (09:00)
[2018-10-15] MEDS: FERROUS SULFATE 325 MG TAB PO SCH ×2 (09:00→09:04)
[2018-10-15] MEDS: FUROSEMIDE 20 MG TAB PO SCH (09:00)
[2018-10-15] MEDS ORDERED: MYBETRIQ 25 MG PO SCH (09:00)
[2018-10-15] MEDS: APIXABAN 5 MG TAB PO SCH (09:00)
[2018-10-15 10:04] LABS: Anisocytosis Slight; Basophils % (A) 1 %; Eosinophils # (A) 0.2 k/uL (0-0.7); Eosinophils % (A) 4 %; HCT 35.5 % (34.0-46.0); HGB 10.6 gm/dL (11.4-16.0); Hypochromasia Marked; Lymphocytes # (A) 0.8 k/uL (1.0-4.8); Lymphocytes % (A) 17 %; MCH 23.4 pg (25.0-35.0); MCHC 29.7 g/dL (31.0-37.0); MCV 78.7 fL (80.0-100.0); Mean Platelet Volume 6.7; Microcytosis Slight; Monocytes # (A) 0.4 k/uL (0-1.0); Monocytes % (A) 9 %; Neutrophils # (A) 3.1 k/uL (1.3-7.7); Neutrophils % (A) 67 %; Platelet Count 156 k/uL (150-450); RBC 4.52 m/uL (3.80-5.40); WBC 4.6 k/uL (3.8-10.6)
[2018-10-15 10:12] LABS: Albumin 3.7 g/dL (3.5-5.0); Calcium 8.8 mg/dL (8.4-10.2); Potassium 4.3 mmol/L (3.5-5.1); Total Bilirubin 1.3 mg/dL (0.2-1.3); Total Protein 6.6 g/dL (6.3-8.2)
[2018-10-15] MEDS ORDERED: METOPROLOL TARTRATE 25 MG TAB PO SCH (10:45)
[2018-10-15 11:36] LABS: Glucose,Whole Blood 116 mg/dL (75-99)
--- NOTE | 2018-10-15 12:13 | P.PN ---
Subjective This is a pleasant 73-year-old female past medical history significant for chronic persistent atrial fibrillation on long-term anticoagulation, hypertension, dyslipidemia, diabetes mellitus, hypertrophic obstructive cardiomyopathy and prior pacemaker implantation. Pacemaker interrogation performed yesterday revealed on she had 2 brief less than 1 minute episodes of non-sustained VT with rate 176. There was no events around the time of her syncopal episode. Echocardiogram obtained in the office 09/21/2018 reveals reserved left ventricular systolic function with ejection fraction 55% with dynamic LVOT gradient of 39 mmHg, moderately dilated left atrium, moderately dilated right ventricle with decreased function, moderately dilated right atrium, mild to moderate mitral regurgitation, the aortic valve has a subaortic membrane, mildly calcified and mild aortic regurgitation. Orthostatic vital signs obtained yesterday are negative for hypertension. Currently maintained on atorvastatin 20 mg daily, Lasix 20 mg twice a day and eliquis 5 mg twice a day was started yesterday. Case management has checked the cost and the patient is agreeable to make the change. Lopressor was recommended however, the patient states she already takes that at home it just wasn't documented on admission. She denies chest pain, shortness of breath, dizziness, nausea, vomiting, palpitations or diaphoresis. Blood pressure 162/84 heart rate 81. GENERAL: Well-appearing, well-nourished and in no acute distress. NECK: Supple without JVD or thyromegaly. LUNGS: Breath sounds clear to auscultation bilaterally. Respiration equal and unlabored. No wheezes, rales or rhonchi. HEART: Irregular rate and rhythm with systolic ejection murmur at the base, no rubs or gallops. S1 and S2 heard. EXTREMITIES: Normal range of motion, no edema. No clubbing or cyanosis. Peripheral pulses intact. ASSESSMENT Syncope. Hypertension Sick sinus syndrome status post permanent pacemaker implantation Chronic persistent atrial fibrillation on long-term anticoagulation Hypertrophic obstructive cardiomyopathy Dyslipidemia Diabetes mellitus PLAN Resume her lopressor 50 mg BID that she takes daily at home. Increase activity and ambulation in the halls, if she is asymptomatic she is stable from a cardiac perspective. Follow up upon discharge with Dr. Ruby. Nurse Practitioner note has been reviewed, I agree with a documented findings and plan of care. Patient was seen and examined. Objective - Vital Signs Vital signs: Vital Signs Temp 97.5 F L 10/15/18 06:57 Pulse 81 10/15/18 06:57 Resp 18 10/15/18 06:57 BP 162/84 10/15/18 06:57 Pulse Ox 96 10/15/18 06:57 Intake & Output 10/14/18 10/15/18 10/15/18 18:59 06:59 18:59 Other: Voiding Method Toilet Toilet # Voids 1 - Labs CBC & Chem 7: 10/15/18 09:39 10/15/18 09:39 Labs: Abnormal Lab Results - Last 24 Hours (Table) 10/13/18 10/14/18 10/14/18 Range/Units 21:20 16:46 19:41 Hgb (11.4-16.0) gm/dL MCV (80.0-100.0) fL MCH (25.0-35.0) pg MCHC (31.0-37.0) g/dL RDW (11.5-15.5) % Lymphocytes # (1.0-4.8) k/uL BUN (7-17) mg/dL Glucose (74-99) mg/dL POC Glucose (mg/dL) 153 H 127 H (75-99) mg/dL HDL Cholesterol 39 L (40-60) mg/dL 10/15/18 10/15/18 10/15/18 Range/Units 06:38 09:39 09:39 Hgb 10.6 L (11.4-16.0) gm/dL MCV 78.7 L (80.0-100.0) fL MCH 23.4 L (25.0-35.0) pg MCHC 29.7 L (31.0-37.0) g/dL RDW 17.0 H (11.5-15.5) % Lymphocytes # 0.8 L (1.0-4.8) k/uL BUN 18 H (7-17) mg/dL Glucose 125 H (74-99) mg/dL POC Glucose (mg/dL) 123 H (75-99) mg/dL HDL Cholesterol (40-60) mg/dL 10/15/18 Range/Units 11:35 Hgb (11.4-16.0) gm/dL MCV (80.0-100.0) fL MCH (25.0-35.0) pg MCHC (31.0-37.0) g/dL RDW (11.5-15.5) % Lymphocytes # (1.0-4.8) k/uL BUN (7-17) mg/dL Glucose (74-99) mg/dL POC Glucose (mg/dL) 116 H (75-99) mg/dL HDL Cholesterol (40-60) mg/dL
[2018-10-15 12:15] LABS: Hemoglobin A1C 6.6 % (4.0-6.0)
[2018-10-15 12:44] VITALS: BP 131/81; TEMP 97.3
[2018-10-15 12:46] VITALS: PULSE 80
--- NOTE | 2018-10-15 14:33 | P.DS ---
Providers Date of admission: 10/14/18 00:25 Expected date of discharge: 10/15/18 Attending physician: Kamaljit Krause Consults: 10/14/18 00:16 Consult Physician Urgent Consulting Provider: [facility] Consult Reason/Comments: syncope, afib, Do you want consulting provider notified?: Yes, Notify in am Primary care physician: Kamaljit Krause [facility] Course: Discharge diagnosis #1 syncopal episode with fall to the floor and loss of consciousness #2 underlying history of atrial fibrillation #3 underlying history of hypertrophic obstructive cardiomyopathy #4 underlying history of hypertension #5 underlying history of hyperlipidemia #6 underlying history of sick sinus syndrome with pacemaker placement Per cardiology patient with a coagulation has been changed from Coumadin to eliquis. Patient is agreeable to co-pay cost. Prescription given to patient from cardiology for eliquis prescription. Patient to follow up with cardiology services for anticoagulation management. Patient reports rarely takes Lopressor at home patient is to resume dose. Patient had 2-D echo obtained in 09/21/2018 which revealed an EF of 55%. Patient's pacemaker was interrogated with no changes. Orthostatics obtained. Patient has been up ambulating the halls without any difficulty. Patient has been cleared for discharge from cardiology standpoint H resume doseospital course Livier Kilgore is a 73-year-old female who was brought to [facility] emergency room via EMS after having an episode of syncope with collapse at a local store. Patient was found on the floor unconscious she stated that she felt dizzy and the next thing she knows was somebody standing over her trying to wake her up she is not very clear on the amount of time that she was unconscious. 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 On presentation to emergency room patient was alert and oriented in no apparent distress and glucose level was 150 and cardiac monitor technician showed atrial fibrillation with a heart rate of 70 At this time patient is alert and oriented 3 in no apparent distress she denies any dizziness she was able to walk to the bathroom and back this morning without any dizziness or lightheadedness no new episodes of the syncope or presyncope. On 10/15/2018 patient's alert and oriented 3. At this time patient denies chest pain or shortness breath. Patient denies nausea vomiting or diarrhea. Patient denies any urinary burning or frequency. Per cardiology patient anticoagulation for atrial fibrillation has been changed to eliquis 5 mg twice a day. Patient is agreeable to co-pay cost. Prescription given to patient per cardiology. Patient also to resume home Lopressor dose. Patient reports she does take Lopressor home but is currently not listed on her home medications but patient reports she does have it at home. At this time patient has been up and leaving the halls without episodes of dizziness . I performed an examination of the patient and discussed their management with the Nurse Practitioner. I have reviewed the Nurse Practitioner's notes and agree with the documented findings and plan of care Patient Condition at Discharge: Stable Plan - Discharge Summary New Discharge Prescriptions: New Mirabegron [Myrbetriq] 25 mg PO DAILY Metoprolol Tartrate [Lopressor] 50 mg PO BID tab Apixaban [Eliquis] 5 mg PO BID 30 Days #60 tab Continue metFORMIN HCL [Glucophage] 500 mg PO DAILY Furosemide [Lasix] 20 mg PO BID Atorvastatin [Lipitor] 20 mg PO HS Ferrous Sulfate [Iron (65 MG Elemental)] 325 mg PO DAILY Tolterodine Tartrate [Detrol LA] 4 mg PO DAILY Discontinued Warfarin Sodium [Coumadin] 2.5 mg PO HS Discharge Medication List Atorvastatin [Lipitor] 20 mg PO HS 08/24/16 [History] Furosemide [Lasix] 20 mg PO BID 08/24/16 [History] metFORMIN HCL [Glucophage] 500 mg PO DAILY 08/24/16 [History] Ferrous Sulfate [Iron (65 MG Elemental)] 325 mg PO DAILY 04/25/17 [History] Tolterodine Tartrate [Detrol LA] 4 mg PO DAILY 10/14/18 [History] Apixaban [Eliquis] 5 mg PO BID 30 Days #60 tab 10/15/18 [Rx] Metoprolol Tartrate [Lopressor] 50 mg PO BID tab 10/15/18 [Rx] Mirabegron [Myrbetriq] 25 mg PO DAILY 10/15/18 [Rx] Follow up Appointment(s)/Referral(s): Kamaljit Krause MD [Primary Care Provider] - 1-2 days Lexi Ruby MD [STAFF PHYSICIAN] - 02/25/19 8:30 am Activity/Diet/Wound Care/Special Instructions: Patient is requesting eliquis prescription be called into her pharmacy. Prescription for eliquis 5 mg twice a day electronically sent to patient's pharmacy. Patient to follow-up with cardiology services Diet heart healthy Activity as tolerated Patient are he takes Lopressor at home not new med. does not require prescription Discharge Disposition: HOME SELF-CARE
[2018-10-15] MEDS ORDERED: WARFARIN 2.5 MG TAB PO SCH (18:00)
[2018-10-15] MEDS ORDERED: METOPROLOL TARTRATE 50 MG TAB PO SCH (21:00)
== END 2018-10-15 16:39 | disposition home or self-care (01) ==
LOC: EC 21:03 → 1SOBS 10-14 00:25
PROVIDERS: ADMIT Internal Medicine; ATTEND Internal Medicine
DX: R55 Syncope and collapse (principal); I48.2 Chronic atrial fibrillation; I42.1 Obstructive hypertrophic cardiomyopathy; I10 Essential (primary) hypertension; E78.5 Hyperlipidemia, unspecified; I48.1 Persistent atrial fibrillation; I25.5 Ischemic cardiomyopathy; Z95.0 Presence of cardiac pacemaker; R11.0 Nausea; R42 Dizziness and giddiness; M79.7 Fibromyalgia; E11.9 Type 2 diabetes mellitus without complications; M19.90 Unspecified osteoarthritis, unspecified site; S60.415A Abrasion of left ring finger, initial encounter; W18.30XA Fall on same level, unspecified, initial encounter; Z79.01 Long term (current) use of anticoagulants; Z79.84 Long term (current) use of oral hypoglycemic drugs; Z79.899 Other long term (current) drug therapy; Z88.5 Allergy status to narcotic agent; Z88.8 Allergy status to other drugs, medicaments and biological substances; Z86.73 Personal history of transient ischemic attack (TIA), and cerebral infarction without residual deficits; Z87.01 Personal history of pneumonia (recurrent); Z87.2 Personal history of diseases of the skin and subcutaneous tissue; Z85.828 Personal history of other malignant neoplasm of skin; Z87.891 Personal history of nicotine dependence; Y92.512 Supermarket, store or market as the place of occurrence of the external cause; Z90.49 Acquired absence of other specified parts of digestive tract; Z90.710 Acquired absence of both cervix and uterus; Z98.42 Cataract extraction status, left eye; Z98.41 Cataract extraction status, right eye; Z96.60 Presence of unspecified orthopedic joint implant; Z96.659 Presence of unspecified artificial knee joint; Z80.9 Family history of malignant neoplasm, unspecified
CPT/HCPCS: 96360; 96361; 99285; 36415; 93005; 80061; 80053 ×2; 82550 ×2; 82553 ×2; 83735; 84484 ×2; 85025 ×2; 85610; 85730; 83036; 71046; G0378 ×2

== ENCOUNTER 2019-04-22 12:07 | Inpatient (IN) | payer MEDICARE ==
--- NOTE | 2019-04-22 13:21 | P.HPIM ---
History of Present Illness H&P Date: 04/22/19 Chief Complaint: passed out This is a 73-year-old female with a known history of atrial fibrillation anticoagulated with Eliquis, hypertrophic obstructive cardiomyopathy, sick sinus syndrome with pacemaker, hyperlipidemia, hypothyroidism, diabetes mellitus type 2, fibromyalgia, iron deficiency anemia and skin cancer. She is a direct admit from Dr. Krause's office. Patient is admitted to the hospital for a syncopal episode. Yesterday patient was walking to her mailbox when she became dizzy. She turned around and try to get back to the house. However, she passed out landing on the ground. Patient feels that she may have passed out for a few seconds. When she came to she was aware of her surroundings. At that time she did injure her left hand and wrist as well as her right knee. Patient's helped her get back into the house. Patient reports having incontinence of stool upon standing and getting into the house. But she does report taking 4 stool softeners for constipation earlier that day. Denies any incontinence of urine. She's had syncopal episodes in the past. Patient denies any chest pain or heart palpitations. She does report some shortness of breath but nothing worse than usual. Denies any cough, fever, chills, sweats, nausea or vomiting, bowel movement changes or urinary symptoms. Patient is been admitted to the hospital for syncopal workup. Cardiology is been placed in consult, check computed tomography scan of the brain echo and carotid. She was placed on telemetry monitoring for any cardiac arrhythmias. X-rays of the injured areas including left hand and wrist and right knee have been ordered. Review of Systems Please refer to HPI otherwise unremarkable Past Medical History Past Medical History: Cancer, CVA/TIA, Diabetes Mellitus, Fibromyalgia, Osteoarthritis (OA), Pneumonia, Skin Disorder Additional Past Medical History / Comment(s): hx hiatal hernia, diarrhea, leakage of urine/urgency, "dry skin", anemia, skin cancer History of Any Multi-Drug Resistant Organisms: None Reported Past Surgical History: Appendectomy, Cholecystectomy, Heart Catheterization, Hysterectomy, Joint Replacement, Orthopedic Surgery, Pacemaker, Tonsillectomy, Tubal Ligation Additional Past Surgical History / Comment(s): cyril heel spurs, left shoulder rotator cuff, bone biopsy, cyril cataracts Past Anesthesia/Blood Transfusion Reactions: Previous Problems w/ Anesthesia, Family History of Problems w/ Anesthesia, Postoperative Nausea & Vomiting (PONV) Additional Past Anesthesia/Blood Transfusion Reaction / Comment(s): "could not wake for several days after knee replacement". brother PONV. Type of Cardiac Device: Permanent Pacemaker Device Placement Date:: 04/2009 Smoking Status: Former smoker - Past Family History Father Family Medical History: Cancer Medications and Allergies Home Medications Medication Instructions Recorded Confirmed Type Atorvastatin [Lipitor] 20 mg PO HS 08/24/16 04/22/19 History Furosemide [Lasix] 20 mg PO BID 08/24/16 04/22/19 History metFORMIN HCL [Glucophage] 500 mg PO BID 08/24/16 04/22/19 History Tolterodine Tartrate [Detrol LA] 4 mg PO DAILY 10/14/18 04/22/19 History Apixaban [Eliquis] 5 mg PO BID 30 Days #60 tab 10/15/18 04/22/19 Rx Metoprolol Tartrate [Lopressor] 50 mg PO BID tab 10/15/18 04/22/19 Rx Levothyroxine Sodium [Synthroid] 25 mcg PO DAILY 04/22/19 04/22/19 History Allergies Allergy/AdvReac Type Severity Reaction Status Date / Time codeine Allergy Unknown Verified 04/22/19 12:49 hydrocodone bitartrate Allergy Nausea & Verified 04/22/19 12:49 [From Vicodin] Vomiting & Diarrhea prednisone Allergy brought on Verified 04/22/19 12:49 diabetes cortisone injections Allergy brought on Uncoded 10/14/18 01:53 diabetes sedatives Allergy "I could Uncoded 10/14/18 01:53 not wake up" steroids Allergy Hallucinati Uncoded 10/14/18 01:53 ons Physical Exam Vitals: Vital Signs Temp Pulse Resp BP Pulse Ox 04/22/19 13:06 97.3 F L 87 18 155/78 98 Intake and Output 04/21/19 04/22/19 04/22/19 22:59 06:59 14:59 Other: Weight 84.2 kg Head normocephalic. Patient does have some bruising on the left side of her chin and cuts on her bottom lip Neck supple Lungs clear to auscultation bilaterally no wheezing or crackles Heart irregular rhythm S1-S2, no rub or gallop positive murmur Abdomen is soft nontender nondistended positive bowel sounds no hepatosplenomegaly Extremities no edema. Rash noted along both tibia is not new. Patient has swelling in the left hand and wrist with bruising and limited range of motion. Swelling and bruising noted in right knee Neuro alert and orientated to 3 Assessment and Plan Assessment: 1. Syncopal episode with fall and collapse: Admit to observation. Check computed tomography scan of brain to rule out brain bleed due to patient being on Eliquis. Check 2-D echo to assess left ventricle function and any valvular abnormality, check carotid ultrasound. Consult cardiology. Patient patient on telemetry monitoring for any cardiac arrhythmias. Check troponin. Check orthostatic blood pressure 2. Left hand and wrist swelling and bruising and right knee bruising and swelling. X-rays of left hand and wrist and knee ordered. Tylenol ordered as needed for pain 3. History of hypertrophic cardiomyopathy 4. History of sick sinus syndrome with pacemaker placement 5. History of chronic persistent atrial fibrillation anticoagulated with Eliquis. Continue metoprolol for rate control 6. Hyperlipidemia continue statin 7. Hypothyroidism continue Synthroid 8. Diabetes mellitus type 2: Resume metformin. Add NovoLog sliding scale coverage with Accu-Cheks every before meals and at bedtime. Check hemoglobin A1c 9. History of fibromyalgia 10. Prior history of iron deficiency anemia GI prophylaxis Pepcid and DVT prophylaxis Eliquis Time with Patient: Greater than 30 (Greater than 50% of the total time spent in counseling and coordination of care.I performed an examination of the patient and discussed their management with the physician Creel Clerk. I have reviewed the Physician Creel Clerk's notes and agree with the documented findings and plan of care)
--- NOTE | 2019-04-22 13:29 | CT ---
EXAMINATION TYPE: CT brain wo con DATE OF EXAM: 04/22/2019 COMPARISON: 04/25/2017 HISTORY: syncope CT DLP: 1098.4 mGycm Automated exposure control for dose reduction was used. FINDINGS: There is no acute intracranial hemorrhage or midline shift identified. There is diffuse ventricular a nd sulcal prominence consistent with diffuse age-related cerebral atrophy. There is low-attenuation i n the periventricular white matter consistent with chronic small vessel ischemic change. The globes a re intact. Minimal mucosal thickening is seen within the sphenoid sinuses. Atherosclerosis is noted o f the intracranial vasculature. Small focal area of low attenuation in the right thalamus suggestive of remote lacunar infarct. IMPRESSION: No acute intracranial hemorrhage or midline shift. There is diffuse age-related cerebral atrophy and chronic small vessel ischemic change noted. NORMAL PRESSURE HYDROCEPHALUS IN THE DIFFERENTIAL DIAGNOS IS.
--- NOTE | 2019-04-22 14:40 | US ---
EXAMINATION TYPE: US carotid duplex BILAT DATE OF EXAM: 04/22/2019 COMPARISON: NONE CLINICAL HISTORY: syncope. EXAM MEASUREMENTS: RIGHT: Peak Systolic Velocity (PSV) cm/sec ----- Right CCA: 63.8 ----- Right ICA: 45.9 ----- Right ECA: 62.5 ICA/CCA ratio: 0.7 RIGHT: End Diastole cm/sec ----- Right CCA: 11.6 ----- Right ICA: 9.8 ----- Right ECA: 8.6 LEFT: Peak Systolic Velocity (PSV) cm/sec ----- Left CCA: 58.9 ----- Left ICA: 13.4 ----- Left ECA: 50.6 ICA/CCA ratio: 1.4 LEFT: End Diastole cm/sec ----- Left CCA: 13.4 ----- Left ICA: 11.9 ----- Left ECA: 0.0 VERTEBRALS (direction of flow): Right Vertebral: Antegrade Left Vertebral: Antegrade Rhythm: Normal Atherosclerotic changes bilaterally. Calcified plaque bilateral bulbs, L>R IMPRESSION: Mild degree of grayscale atheromatous plaquing with no sonographically evident hemodynam ically significant stenosis within either visualized carotid arterial system. Criteria for Assigning % of Stenosis / Diameter reduction (Estimation based on the indirect measurements of the internal carotid artery velocities (ICA PSV). 1. Normal (no stenosis)=ICA PSV < 125 cm/s: ratio < 2.0: ICA EDV<40 cm/s. 2. Less than 50% stenosis=ICA PSV < 125 cm/s: ratio < 2.0: ICA EDV<40 cm/s. 3. 50 to 69% stenosis=ICA PSV of 125 to 230 cm/s: ration 2.0 ? 4.0: ICA EDV 40-100 cm/s. 4. Greater than 70% stenosis to near occlusion= ICA PSV > 230 cm/s: ratio > 4.0: ICA EDV > 100 cm/s. 5. Near occlusion= ICA PSV velocities may be low or undetectable: variable ratio and ICA EDV. 6. Total occlusion=unable to detect flow.
--- NOTE | 2019-04-22 14:51 | XR ---
EXAMINATION TYPE: XR hand complete LT, XR wrist complete LT DATE OF EXAM: 04/22/2019 CLINICAL HISTORY: Left hand and wrist pain after fall TECHNIQUE: Frontal, lateral and oblique images of the left wrist and hand are obtained. Scaphoid vie w was also obtained. COMPARISON: None. FINDINGS: There is diffuse osseous demineralization. There is a transversely oriented nondisplaced, n oncomminuted fracture of the proximal metaphysis of the second metacarpal. Periosteal reaction/cortic al thickening of the distal diaphysis of the second digit as sequela of remote injury. There is subtl e questionable offset of the mid pole of the scaphoid. The joint spaces in the left hand and wrist ar e normal with joint space narrowing of the distal interphalangeal joints and to a lesser degree of th e proximal interphalangeal joints as well as the first carpometacarpal joint. There is opposing surfa ce sclerosis and ulnar deviation of the distal third interphalangeal joint. Overhanging edges are see n in the third interphalangeal joint. The overlying soft tissue appears unremarkable. IMPRESSION: 1. Acute transversely oriented noncomminuted, nondisplaced fracture proximal second metacarpal metaph ysis of the left hand. 2. Subtle questionable offset of the scaphoid. If there is snuffbox tenderness CT would be recommende d. 3. Healed fracture deformity of the distal diaphysis of the second metacarpal. 3. Generalized osseous demineralization. 4. [id number] arthropathy of the left hand most pronounced of the distal interphalangeal joint of the third digit with ulnar subluxation.
--- NOTE | 2019-04-22 14:55 | XR ---
EXAMINATION TYPE: XR knee complete RT DATE OF EXAM: 04/22/2019 CLINICAL HISTORY: Right knee pain TECHNIQUE: Three views of the right knee are obtained. COMPARISON: None. FINDINGS: Diffuse osseous demineralization is present. There is no acute fracture/dislocation evident in right knee. The tri-compartment joint spaces appear aligned however there are tricompartmental o steophytes and medial compartment as well as patellofemoral compartment joint space narrowing. There is generalized subcutaneous edema. Healed fracture deformity of the proximal fibular diaphysis is see n. IMPRESSION: 1. No acute fracture or dislocation in the right knee. 2. Moderate tricompartmental arthropathy. 3. Old healed proximal fibular diaphyseal fracture. 4. Generalized osseous demineralization and generalized subcutaneous edema the visualized right lower extremity.
[2019-04-22 15:26] LABS: Anisocytosis Slight; Basophils # (A) 0.1 k/uL (0-0.2); Basophils % (A) 1 %; Eosinophils # (A) 0.2 k/uL (0-0.7); Eosinophils % (A) 4 %; HCT 36.3 % (34.0-46.0); HGB 11.1 gm/dL (11.4-16.0); Hypochromasia Marked; Lymphocytes # (A) 0.7 k/uL (1.0-4.8); Lymphocytes % (A) 12 %; MCHC 30.6 g/dL (31.0-37.0); Mean Platelet Volume 6.5; Microcytosis Slight; Monocytes # (A) 0.4 k/uL (0-1.0); Monocytes % (A) 7 %; Neutrophils # (A) 4.5 k/uL (1.3-7.7); Neutrophils % (A) 75 %; Platelet Count 167 k/uL (150-450); RBC 4.84 m/uL (3.80-5.40); RDW 17.4 % (11.5-15.5); WBC 6.1 k/uL (3.8-10.6)
[2019-04-22 15:31] LABS: Albumin 4.1 g/dL (3.5-5.0); Potassium 3.9 mmol/L (3.5-5.1); Total Protein 7.5 g/dL (6.3-8.2)
[2019-04-22 15:33] VITALS: BMI 38.7
--- NOTE | 2019-04-22 16:09 | P.CNNES ---
History of Present Illness Consult date: 04/22/19 Requesting physician: Fay Dickey Reason for Consult: Syncope, abnormal CT Head Chief complaint: Passed out History of Present Illness: This is a 73 RH female history of atrial fibrillation on apixaban, hypertrophic obstructive cardiomyopathy, sick sinus syndrome with pacemaker, DMII, HL, h ypothyroidism, fibromyalgia, Fe deficiency anemia and skin cancer. Yesterday patient was walking to her mailbox when she suddenly became lightheaded. The lightheadedness was not described as a room spinning sensation. She also did not have any other focal accompanying neurological symptoms such as headache, diplopia, amaurosis, facial numbness or droop, dysarthria, dysphagia, aphasia, alternating or hemianesthesia or paresis, tremor, ataxia or witnessed tonic- clonic/myoclonic activity. She also did not have any antecedent visual, auditory, olfactory, gustatory or visceral aura or prodrome. No witnessed repetitive behavior suspicious for automatism. Patient then turned around and went back to the house. She then suddenly lost consciousness falling to the ground. She estimates to perhaps have lost consciousness for several seconds. There was no post-ictal confusion. She did lose control of stool upon standing and getting into the house, but it occurred in the setting of taking 4 stool softeners for constipation. She had carotid duplex and CT Head with results discussed below and for which neurology was consulted. Patient states that her memory is not great, she has difficulty leaking urine and making it in time to the bathroom. Her balance is also not perfect. She has had falls. Having fibromyalgia and diabetes does not help. Denies lumbar radicular symptoms or saddle anesthesia. Review of Systems I have performed a 14-point organ ROS with patient; pertinents are as per HPI. Past Medical History Past Medical History: Cancer, CVA/TIA, Diabetes Mellitus, Fibromyalgia, Osteoarthritis (OA), Pneumonia, Skin Disorder Additional Past Medical History / Comment(s): hx hiatal hernia, diarrhea, leakage of urine/urgency, "dry skin", anemia, skin cancer History of Any Multi-Drug Resistant Organisms: None Reported Past Surgical History: Appendectomy, Cholecystectomy, Heart Catheterization, Hysterectomy, Joint Replacement, Orthopedic Surgery, Pacemaker, Tonsillectomy, Tubal Ligation Additional Past Surgical History / Comment(s): cyril heel spurs, left shoulder rotator cuff, bone biopsy, cyril cataracts Past Anesthesia/Blood Transfusion Reactions: Previous Problems w/ Anesthesia, Family History of Problems w/ Anesthesia, Postoperative Nausea & Vomiting (PONV) Additional Past Anesthesia/Blood Transfusion Reaction / Comment(s): "could not wake for several days after knee replacement". brother PONV. Type of Cardiac Device: Permanent Pacemaker Device Placement Date:: 04/2009 Smoking Status: Former smoker - Past Family History Father Family Medical History: Cancer Medications and Allergies Home Medications Medication Instructions Recorded Confirmed Type Atorvastatin [Lipitor] 20 mg PO HS 08/24/16 04/22/19 History Furosemide [Lasix] 20 mg PO BID 08/24/16 04/22/19 History metFORMIN HCL [Glucophage] 500 mg PO BID 08/24/16 04/22/19 History Tolterodine Tartrate [Detrol LA] 4 mg PO DAILY 10/14/18 04/22/19 History Apixaban [Eliquis] 5 mg PO BID 30 Days #60 tab 10/15/18 04/22/19 Rx Metoprolol Tartrate [Lopressor] 50 mg PO BID tab 10/15/18 04/22/19 Rx Levothyroxine Sodium [Synthroid] 25 mcg PO DAILY 04/22/19 04/22/19 History Allergies Allergy/AdvReac Type Severity Reaction Status Date / Time codeine Allergy Unknown Verified 04/22/19 12:49 hydrocodone bitartrate Allergy Nausea & Verified 04/22/19 12:49 [From Vicodin] Vomiting & Diarrhea prednisone Allergy brought on Verified 04/22/19 12:49 diabetes cortisone injections Allergy brought on Uncoded 10/14/18 01:53 diabetes sedatives Allergy "I could Uncoded 10/14/18 01:53 not wake up" steroids Allergy Hallucinati Uncoded 10/14/18 01:53 ons Physical Examination - Vital Signs Vital Signs: Vital Signs Temp Pulse Resp BP Pulse Ox 04/22/19 13:06 97.3 F L 87 18 155/78 98 Intake and Output 04/22/19 04/22/19 04/22/19 06:59 14:59 22:59 Other: Weight 84.2 kg Gen NAD Pleasant and cooperative HEENT NCAT Sclera without icterus O/P clear Neck Supple No carotid bruit Cor RRR no m/r/g Lungs CTAB Abd Soft NTND +BS Ext Warm to touch She has bruising and swelling of the right knee and left hand Neuro MS A+Ox4 Normal fluency Able to follow all commands CN PERRL VFF no APD EOMI no nystagmus or HECTOR No facial asymmetry Masseter's symmetric Hearing intact to normal voice bilaterally Speech not dysarthric Equal elevation of palate Tongue midline Sym shrug and SCM bilaterally Motor Normal bulk/tone No pronator drift No tremors Strength 5/5 sym throughout Sens Intact to LT x4 No neglect or extinction Coord No dysmetria on FTN bilaterally DTRs 1+/4 sym throughout Toes downgoing bilaterally No clonus at achilles Gait Deferred Results - Laboratory Findings CBC and BMP: 04/22/19 14:55 Abnormal Lab Findings: Abnormal Labs 04/22/19 14:55 Hgb 11.1 L MCV 75.0 L MCH 23.0 L MCHC 30.6 L RDW 17.4 H Lymphocytes # 0.7 L - Diagnostic Findings Additional findings: CT Head wo cont 04/22/19. Cerebral atrophy. Prominent ventricles, ex vacuo dilatation vs communicating hydrocephalus. Chronic small vessel changes. No ICH. Nil acute. Carotid duplex 04/22/19. Mild atheromatous plaquing but without hemodynamically significant stenosis in BICA. Antegrade flow in both vertebral arteries. I have reviewed neuroimages myself. Assessment and Plan Assessment: Syncope, possibly vasovagal but need to r/o other cardiac/hemodynamic causes. Does not sound like drop attacks from VBI or complex partial seizure. Abnormal CT Head- she does have prominent cerebral ventricles, ex vacuo dilatation in the setting of cerebral atrophy vs communicating hydrocephalus. Plan: -Cardiac work-up for syncope -Carotid duplex reviewed -Current neuro exam non-focal. No further neuroimaging recommended -There is nothing in report to suggest epileptic seizure despite the report of fecal incontinence. Hold on EEG -As for her prominent looking ventricles, CT Head itself is not diagnostic of N PH. To assess for communicating hydrocephalus, I have explained to patient that she would need to see a neurosurgeon for consideration of either a large volume LP or a nuclear medicine CSF flow study. If she indeed is confirmed to have communicating hydrocephalus, treatment would be permanent [employer] shunt placement. Patient is not keen on invasive testing but is willing to have further conversation with an outpatient neurosurgeon. Primary team please make a referral to outpatient neurosurgery -d/w patient at length. All questions answered -No other inpatient neuro recs at this time. Will revisit patient prn. Please call with any ?. Thank you for this consultation. Time with Patient: Greater than 30 (Time spent in direct patient care, greater than 50% of which was spent in [id number] counseling and coordination of care: 70 minutes)
[2019-04-22] MEDS: FAMOTIDINE 20 MG TAB PO SCH (16:15)
[2019-04-22 16:53] LABS: Glucose,Whole Blood 131 mg/dL (75-99)
--- NOTE | 2019-04-22 17:15 | XR ---
EXAMINATION TYPE: XR chest 1V DATE OF EXAM: 04/22/2019 COMPARISON: 10/13/2018 HISTORY: Short of breath TECHNIQUE: Single frontal view of the chest is obtained. FINDINGS: Heart is enlarged. There is pulmonary vascular congestion. There is left axillary pacemake r. There are chest leads. There is coarsening of the interstitial markings. IMPRESSION: Congestive heart failure. Pulmonary interstitial fibrosis. Chest appears slightly worse than last exam.
[2019-04-22] MEDS: INSULIN ASPART (NovoLOG) 100 UNIT/ML VIAL SQ SCH ×2 (17:33→21:39)
[2019-04-22] MEDS: metFORMIN 500 MG TAB PO SCH (17:38)
[2019-04-22 20:42] LABS: Glucose,Whole Blood 137 mg/dL (75-99)
[2019-04-22] MEDS ORDERED: APIXABAN 5 MG TAB PO SCH (21:00)
[2019-04-22] MEDS: ACETAMINOPHEN TAB 325 MG TAB PO PRN (21:38)
[2019-04-22] MEDS: ATORVASTATIN 20 MG TAB PO SCH (21:39)
[2019-04-22] MEDS: FUROSEMIDE 20 MG TAB PO SCH (21:39)
[2019-04-22] MEDS: METOPROLOL TARTRATE 50 MG TAB PO SCH (22:37)
[2019-04-23 02:23] LABS: Hemoglobin A1C 6.1 % (4.0-6.0)
[2019-04-23] MEDS: LEVOTHYROXINE 25 MCG TAB PO SCH (06:29)
[2019-04-23 06:55] LABS: Glucose,Whole Blood 114 mg/dL (75-99)
[2019-04-23 07:06] LABS: Anisocytosis Slight; Basophils % (A) 1 %; Eosinophils # (A) 0.2 k/uL (0-0.7); Eosinophils % (A) 3 %; HCT 33.9 % (34.0-46.0); HGB 10.4 gm/dL (11.4-16.0); Hypochromasia Marked; Lymphocytes # (A) 0.7 k/uL (1.0-4.8); Lymphocytes % (A) 15 %; MCH 22.7 pg (25.0-35.0); MCHC 30.6 g/dL (31.0-37.0); MCV 74.3 fL (80.0-100.0); Mean Platelet Volume 6.5; Microcytosis Moderate; Monocytes # (A) 0.3 k/uL (0-1.0); Monocytes % (A) 7 %; Neutrophils # (A) 3.5 k/uL (1.3-7.7); Neutrophils % (A) 73 %; Platelet Count 161 k/uL (150-450); RBC 4.57 m/uL (3.80-5.40); RDW 17.6 % (11.5-15.5); WBC 4.8 k/uL (3.8-10.6)
[2019-04-23 07:18] LABS: Albumin 3.7 g/dL (3.5-5.0); Calcium 8.8 mg/dL (8.4-10.2); Potassium 3.5 mmol/L (3.5-5.1); Total Bilirubin 2.3 mg/dL (0.2-1.3); Total Protein 6.8 g/dL (6.3-8.2)
[2019-04-23] MEDS: INSULIN ASPART (NovoLOG) 100 UNIT/ML VIAL SQ SCH ×4 (07:47→20:59)
[2019-04-23] MEDS: ONDANSETRON 4 MG/2 ML VIAL IVP PRN (10:07)
--- NOTE | 2019-04-23 10:09 | P.PN ---
Subjective Progress Note Date: 04/23/19 This is a 73-year-old female with a known history of atrial fibrillation anticoagulated with Eliquis, hypertrophic obstructive cardiomyopathy, sick sinus syndrome with pacemaker, hyperlipidemia, hypothyroidism, diabetes mellitus type 2, fibromyalgia, iron deficiency anemia and skin cancer. She is a direct admit from Dr. Krause's office. Patient is admitted to the hospital for a syncopal episode. Yesterday patient was walking to her mailbox when she became dizzy. She turned around and try to get back to the house. However, she passed out landing on the ground. Patient feels that she may have passed out for a few seconds. When she came to she was aware of her surroundings. At that time she did injure her left hand and wrist as well as her right knee. Patient's helped her get back into the house. Patient reports having incontinence of stool upon standing and getting into the house. But she does report taking 4 stool softeners for constipation earlier that day. Denies any incontinence of urine. She's had syncopal episodes in the past. Patient denies any chest pain or heart palpitations. She does report some shortness of breath but nothing worse than usual. Denies any cough, fever, chills, sweats, nausea or vomiting, bowel movement changes or urinary symptoms. Patient is been admitted to the hospital for syncopal workup. Cardiology is been placed in consult, check computed tomography scan of the brain echo and carotid. She was placed on telemetry monitoring for any cardiac arrhythmias. X-rays of the injured areas including left hand and wrist and right knee have been ordered. 04/23/2019 patient lying in bed comfortably. She does reports some shortness of breath occasionally through the night. Chest x-ray showing some signs of CHF. She is currently on oral Lasix. Cardiology on consult. They've ordered a BNP. Awaiting 2-D echo results. Patient denies any chest pain. Denies any nausea or vomiting. Denies any bowel changes or urinary symptoms. Denies any dizziness or lightheadedness. Patient seen by neurology. X-rays reviewed. There is a acute transversely orientated non-comminuted, nondisplaced fracture proximal second metacarpal metaphysis of the left hand and a solid old questionable onset of the scaphoid. Orthopedics have been consulted. Objective - Vital Signs Vital signs: Vital Signs Temp 97.6 F 04/23/19 07:31 Pulse 74 04/23/19 07:31 Resp 16 04/23/19 07:31 BP 157/90 04/23/19 09:22 Pulse Ox 93 L 04/23/19 07:31 Intake & Output 04/22/19 04/23/19 04/23/19 18:59 06:59 18:59 Intake Total 240 Balance 240 Weight 84.2 kg Intake: Oral 240 Other: Voiding Method Toilet Toilet Toilet # Voids 1 - Exam Head normocephalic Neck supple Lungs diminished at the bases Heart regular rate and rhythm S1-S2, no rub or gallop positive murmur Abdomen is soft nontender nondistended positive bowel sounds no hepatosplenomegaly Extremities swelling noted on the lower extremities bilaterally.Rash noted along both tibia is not new. Patient has swelling in the left hand and wrist with bruising and limited range of motion. Swelling and bruising noted in right knee Neuro alert and orientated to 3 - Labs CBC & Chem 7: 04/23/19 06:28 04/23/19 06:28 Labs: Abnormal Lab Results - Last 24 Hours (Table) 04/22/19 04/22/19 04/22/19 Range/Units 14:55 14:55 14:55 Hgb 11.1 L (11.4-16.0) gm/dL Hct (34.0-46.0) % MCV 75.0 L (80.0-100.0) fL MCH 23.0 L (25.0-35.0) pg MCHC 30.6 L (31.0-37.0) g/dL RDW 17.4 H (11.5-15.5) % Lymphocytes # 0.7 L (1.0-4.8) k/uL Glucose 108 H (74-99) mg/dL POC Glucose (mg/dL) (75-99) mg/dL Hemoglobin A1c 6.1 H (4.0-6.0) % Total Bilirubin 2.0 H (0.2-1.3) mg/dL Alkaline Phosphatase 158 H (38-126) U/L 04/22/19 04/22/19 04/23/19 Range/Units 16:51 20:41 06:28 Hgb 10.4 L (11.4-16.0) gm/dL Hct 33.9 L (34.0-46.0) % MCV 74.3 L (80.0-100.0) fL MCH 22.7 L (25.0-35.0) pg MCHC 30.6 L (31.0-37.0) g/dL RDW 17.6 H (11.5-15.5) % Lymphocytes # 0.7 L (1.0-4.8) k/uL Glucose (74-99) mg/dL POC Glucose (mg/dL) 131 H 137 H (75-99) mg/dL Hemoglobin A1c (4.0-6.0) % Total Bilirubin (0.2-1.3) mg/dL Alkaline Phosphatase (38-126) U/L 04/23/19 04/23/19 Range/Units 06:28 06:54 Hgb (11.4-16.0) gm/dL Hct (34.0-46.0) % MCV (80.0-100.0) fL MCH (25.0-35.0) pg MCHC (31.0-37.0) g/dL RDW (11.5-15.5) % Lymphocytes # (1.0-4.8) k/uL Glucose 111 H (74-99) mg/dL POC Glucose (mg/dL) 114 H (75-99) mg/dL Hemoglobin A1c (4.0-6.0) % Total Bilirubin 2.3 H (0.2-1.3) mg/dL Alkaline Phosphatase 131 H (38-126) U/L Assessment and Plan Assessment: 1. Syncopal episode with fall and collapse: Orthostatic blood pressure was negative. Computed tomography scan the brain showing no acute intracranial hemorrhage or midline shift. Did reveal diffuse age-related cerebral atrophy an d chronic small vessel ischemic change noted. No evidence of any cardiac arrhythmias. Carotid Doppler is negative for any significant hemodynamic stenosis. Awaiting 2-D echo. Cardiology is following. Patient also seen by neurology. 2. Left hand and wrist swelling and bruising and right knee bruising and swelling. X-ray showing acute transversely orientated non-comminuted, nondisplaced fracture of the proximal second metacarpal metaphysis of the left hand. Subtle questionable onset of the scaphoid. Also mild to moderate arthropathy of the left hand most pronounced of the distal interphalangeal joint of the third digit with ulnar subluxation . Orthopedics have been consulted 3. History of hypertrophic cardiomyopathy 4. History of sick sinus syndrome with pacemaker placement 5. History of chronic persistent atrial fibrillation anticoagulated with Eliquis. Continue metoprolol for rate control 6. Hyperlipidemia continue statin 7. Hypothyroidism continue Synthroid 8. Diabetes mellitus type 2: Resume metformin. Add NovoLog sliding scale coverage with Accu-Cheks every before meals and at bedtime. Check hemoglobin A1c 9. History of fibromyalgia 10. Prior history of iron deficiency anemia 11. Normal pressure hydrocephalus and differential noted on computed tomography scan of the brain. Patient seen evaluated by neurology. They are recommending neurosurgeon evaluation and workup in the outpatient setting. 12. Shortness of breath possibly related to congestive heart failure exacerbation. Echo in August 2018 showed an EF of 55%. Patient has known c hronic diastolic CHF. Check BNP level. Await further cardiology recommendations regarding diuretics 13. Anemia hemoglobin 10.4. Check iron studies. Possibly acute blood loss anemia due to significant bruising in the left hand and knee. Continue to monitor GI prophylaxis Pepcid and DVT SCDs. Eliquis currently on hold due to significant bruising in the left hand and right knee. And also awaiting orthopedic evaluation. I performed an examination of the patient and discussed their management with the physician Cupola Liner Helper. I have reviewed the Physician Cupola Liner Helper's notes and agree with the documented findings and plan of care
--- NOTE | 2019-04-23 11:53 | CONS ---
CONSULTATION PULMONARY/CRITICAL CARE CONSULTATION: DATE OF SERVICE: 04/23/2019 This is a 73-year-old female with a known history of atrial fibrillation. She also suffers from hypertrophic cardiomyopathy, sick sinus syndrome, status post pacemaker insertion, hyperlipidemia, hypothyroidism, diabetes, fibromyalgia, iron deficiency anemia, and skin cancer. She apparently was admitted to the hospital for an episode of syncope. She apparently was walking out to her mailbox when she became dizzy. She turned around to get back into the house, have her passing out. She passed on the ground. She thinks that maybe she was out for a few seconds or minute or so. Anyway, we were asked to see her because of shortness of breath. Apparently yesterday, she was quite winded and was short of breath even at rest, could not lay flat and was short of breath even more so when she was exerting herself by getting up and going to the bathroom. We looked at her chest x-ray. In our opinion, the chest x-ray appears to show a pattern of fluid overload/CHF. I asked her whether not she was ever diagnosed with heart failure and she states she is not sure, they may have mentioned in the past. Anyway, she does see Cardiology in the form of Dr. Ruby and her primary care physician is Dr. Krause. She had H and P performed it appears yesterday or maybe even today by Dr. Phoebe Burleson, Dr. Krause's nurse practitioner/PA. She denies any nausea, vomiting or diarrhea. She denies any genitourinary complaints. PAST MEDICAL HISTORY: Positive for skin cancer, CVA, diabetes, fibromyalgia, DJD, and pneumonia. She also apparently has a history of hiatal hernia, urinary incontinence, dry skin, and anemia. Other medical history includes hyperlipidemia, hypertension and hypothyroidism. SURGICAL HISTORY: Includes appendectomy, cholecystectomy, heart catheterization, hysterectomy, joint replacement, pacemaker insertion, tonsillectomy, tubal ligation, left rotator cuff surgery and bilateral cataract surgery. SOCIAL HISTORY: Positive for previous tobacco use. She denies alcohol or illicit drug use. FAMILY HISTORY: Positive for father with cancer, type unknown. HOME MEDICATIONS: Include Lipitor, Lasix, Glucophage, Detrol LA, Eliquis, metoprolol and levothyroxine. ALLERGIES: Multiple include CODEINE, VICODIN, PREDNISONE, CORTISONE, SEDATIVES and STEROIDS. REVIEW OF SYSTEMS: CONSTITUTIONAL: Weakness. NEUROLOGIC: Syncope. HEENT: Negative. CARDIOVASCULAR: Negative. PULMONARY: Shortness of breath, resolved. GI: Negative. : Negative. RHEUMATOLOGIC: Negative. IMMUNOLOGIC: Negative. ENDOCRINOLOGIC: Negative. DERMATOLOGIC: Negative. PHYSICAL EXAMINATION: Current vital signs are reviewed. They include a temperature of 97.6, heart rate 74, respiratory rate 16, blood pressure 149/87 mean 107, saturations on room air 96%. She appears in no acute distress. HEENT: Examination is grossly unremarkable. Mucous membranes are moist. She has got a bit of a bruise on the left side of her chin. NECK: Supple. Full range of motion. No adenopathy, thyromegaly or neck vein distention. CARDIOVASCULAR: Examination reveals irregular rhythm and rate. S1, S2 normal. No clear-cut murmur. Heart rate mid 70s. LUNGS: Reveal very mild fine crackles. No wheezes or rhonchi. Breath sounds equal. ABDOMEN: Soft. Bowel sounds are heard. EXTREMITIES: Reveal significant chronic venous stasis changes and significant pitting edema. Edema is 2+ for sure. She has some small blisters on the lower extremities. There is some chronic hyperpigmentation as well. SKIN: Without rash other than what was described. NEUROLOGIC: Examination is brief but nonfocal. LAB DATA: Reviewed. White count is 4.8, hemoglobin 10.4, hematocrit 33.9, platelet count 161,000. Electrolytes all normal including sodium, potassium, chloride, CO2, anion gap, BUN and creatinine. The patient's bilirubin was 2.3, alkaline phosphatase 131, N terminal proBNP was elevated at 4990. TSH is normal. A chest x-ray shows changes of heart failure. The brain CT showed nothing acute. They were worried about the possibility of normal-pressure hydrocephalus in the interpretation of the CT scan. Skeletal x-rays were negative. Medications are reviewed. Currently she is just on Tylenol, Lipitor, Pepcid, Lasix levothyroxine, metformin, metoprolol, Zofran, and oxybutynin. ASSESSMENT: 1. Shortness of breath, likely related to underlying congestive heart failure/heart failure. 2. History of atrial fibrillation. 3. Hypertrophic obstructive cardiomyopathy. 4. Sick sinus syndrome, status post pacemaker insertion. 5. History of hyperlipidemia. 6. Hypothyroidism. 7. Type 2 diabetes mellitus. 8. Fibromyalgia. 9. Iron-deficiency anemia. 10.History of skin cancer. 11.Previous history of cerebrovascular accident. 12.Degenerative joint disease. 13.Urinary incontinence. PLAN: The patient seems to be doing relatively well. She is feeling much better today than she did yesterday. She has been diuresed. She is lying flat in bed. She is not requiring any supplemental oxygen. Will see her only as needed. No history to suggest intrinsic pulmonary disease. She reminds me that apparently I saw her number of years back at which time we determined that she really did not have any chronic lung disease. MMODL / IJN: [id number] /
[2019-04-23 12:12] LABS: Glucose,Whole Blood 109 mg/dL (75-99)
[2019-04-23] MEDS: METOPROLOL TARTRATE 50 MG TAB PO SCH ×2 (12:18→21:02)
[2019-04-23] MEDS: FUROSEMIDE 10 MG/ML 4 ML VIAL IV SCH ×2 (12:18→21:03)
[2019-04-23] MEDS: OXYBUTYNIN 10 MG TAB.ER.24 PO SCH (12:18)
[2019-04-23] MEDS: SPIRONOLACTONE 25 MG TAB PO SCH (12:18)
[2019-04-23] MEDS: metFORMIN 500 MG TAB PO SCH ×2 (12:18→18:08)
[2019-04-23] MEDS: FAMOTIDINE 20 MG TAB PO SCH (12:18)
--- NOTE | 2019-04-23 12:31 | CT ---
EXAMINATION TYPE: CT wrist LT wo con DATE OF EXAM: 04/23/2019 COMPARISON: Left hand and wrist x-ray from yesterday. HISTORY: pain post fall CT DLP: 249.8 mGycm Automated exposure control for dose reduction was used. FINDINGS: Exam is suboptimal as there is some motion artifact degradation. There is acute comminuted displaced intra-articular fracture at base of second metacarpal. There is a possible second acute nondisplaced intra-articular transverse fracture through dorsal aspect base of third metacarpal axial image 34. There is moderate narrowing ulnar base of the first metacarpal with out acute fracture. Severe narrowing base of second metacarpal is present. Carpal bones are maintained. Scaphoid is intact. Occult hamate shows well-corticated 4 to 5 mm bony f ragment suspected old avulsion type injury. Mild to moderate distal diffuse subcutaneous edema is see n. IMPRESSION: Acute minimally displaced intra-articular fractures at base of second metacarpal confirme d.. Suspect acute nondisplaced transverse fracture dorsal aspect base of third metacarpal. No additio nal acute fracture including scaphoid bone.
[2019-04-23] MEDS: FUROSEMIDE 20 MG TAB PO SCH (12:40)
--- NOTE | 2019-04-23 12:40 | CT ---
EXAMINATION TYPE: CT abdomen wo con DATE OF EXAM: 04/23/2019 HISTORY: Upper abd tenderness post fall injury yesterday CT DLP: 428.9 mGycm. Automated Exposure Control for Dose Reduction was Utilized. TECHNIQUE: CT scan of the abdomen is performed without oral or IV contrast. COMPARISON: Chest x-ray from yesterday FINDINGS: Within the limitations of a non-contrast study, the following observations are made. LUNG BASES: There is cardiomegaly with partial visualization of right-sided pacemaker leads. There ar e small to moderate-sized right greater than left pleural effusions partially imaged. There is associ ated bibasilar atelectasis and/or infiltrates. Trace pericardial effusion is seen.. LIVER/GB: Small amount of perihepatic ascites. Contracted gallbladder suspected. Mild to moderate per iportal edema nonspecific finding. PANCREAS: No significant abnormality is seen. SPLEEN: No significant abnormality is seen. ADRENALS: No significant abnormality is seen. KIDNEYS: Hyperdense subcentimeter focus lower pole right kidney favors hemorrhagic or proteinaceous c yst coronal image 40. BOWEL: Stomach is poorly distended and thus suboptimally evaluated. No suspicious small or large sammy l dilatation. LYMPH NODES: No greater than 1cm abdominal lymph nodes are appreciated. OSSEOUS STRUCTURES: No acute osseous fracture. Facet arthropathy lower lumbar levels. Slight grade 1 anterolisthesis L4 on L5. Vacuum disc phenomenon L4-L5. OTHER: Small amount of scattered abdominal ascites. Mild amount of diffuse soft tissue anasarca. IMPRESSION: Suboptimal study as not performed with IV contrast. Small amount of nonspecific fluid or ascites surrounds the liver. There is small amount of diffuse ascites throughout the abdominal mesent jean claude. Mild diffuse soft tissue anasarca. Small to moderate size right greater than left pleural effusi ons.
--- NOTE | 2019-04-23 12:41 | P.CNOR ---
History of Present Illness - [facility] Consult date: 04/23/19 History of present illness: This patient is a 73-year-old female with a past medical history of atrial fibrillation currently on Eliquis, Cardiomyopathy, standing 6 syndrome with pacemaker, hyperlipidemia, hypothyroidism, diabetes type 2, and fibromyalgia that presented to Dr. Krause's office yesterday for a chief complaint of syncope. Patient states she was walking out to her mailbox yesterday when she suddenly became very dizzy and passed out. She states she does not remember falling or how she fell. She states her helped her get back into the home. She states she presented to Dr. Krause's office for evaluation, The masoud stevens states she was instructed to the hospital for direct admission. Patient states after she fell she experienced left wrist pain, as well as right knee pain. In the emergency department, x-rays revealed a left second proximal metacarpal fracture. The radiologist also noticed a possible scaphoid fracture. Right knee x-rays were negative for acute fractures. The patient was admitted under Dr. Krause with consults placed orthopedic surgery for evaluation and treatment. At time of exam, the patient is complaining of left wrist pain and right knee pain. Patient denies pain anywhere else. She denies numbness or tingling of the left upper extremity, right lower extremity. She denies add itional complaints at this time. Vital signs stable. Past Medical History Past Medical History: Cancer, CVA/TIA, Diabetes Mellitus, Fibromyalgia, Osteoarthritis (OA), Pneumonia, Skin Disorder Additional Past Medical History / Comment(s): hx hiatal hernia, diarrhea, leakage of urine/urgency, "dry skin", anemia, skin cancer History of Any Multi-Drug Resistant Organisms: None Reported Past Surgical History: Appendectomy, Cholecystectomy, Heart Catheterization, Hysterectomy, Joint Replacement, Orthopedic Surgery, Pacemaker, Tonsillectomy, Tubal Ligation Additional Past Surgical History / Comment(s): cyril heel spurs, left shoulder rotator cuff, bone biopsy, cyril cataracts Past Anesthesia/Blood Transfusion Reactions: Previous Problems w/ Anesthesia, Family History of Problems w/ Anesthesia, Postoperative Nausea & Vomiting (PONV) Additional Past Anesthesia/Blood Transfusion Reaction / Comm: "could not wake for several days after knee replacement". brother PONV. Type of Cardiac Device: Permanent Pacemaker Device Placement Date:: 04/2009 Smoking Status: Former smoker - Past Family History Father Family Medical History: Cancer Additional Family Medical History / Comment(s): skin Mother Family Medical History: Seizure Disorder Medications and Allergies Home Medications Medication Instructions Recorded Confirmed Type Atorvastatin [Lipitor] 20 mg PO HS 08/24/16 04/22/19 History Furosemide [Lasix] 20 mg PO BID 08/24/16 04/22/19 History metFORMIN HCL [Glucophage] 500 mg PO BID 08/24/16 04/22/19 History Tolterodine Tartrate [Detrol LA] 4 mg PO DAILY 10/14/18 04/22/19 History Apixaban [Eliquis] 5 mg PO BID 30 Days #60 tab 10/15/18 04/22/19 Rx Metoprolol Tartrate [Lopressor] 50 mg PO BID tab 10/15/18 04/22/19 Rx Levothyroxine Sodium [Synthroid] 25 mcg PO DAILY 04/22/19 04/22/19 History Allergies Allergy/AdvReac Type Severity Reaction Status Date / Time codeine Allergy Unknown Verified 04/22/19 12:49 hydrocodone bitartrate Allergy Nausea & Verified 04/22/19 12:49 [From Vicodin] Vomiting & Diarrhea prednisone Allergy brought on Verified 04/22/19 12:49 diabetes cortisone injections Allergy brought on Uncoded 10/14/18 01:53 diabetes sedatives Allergy "I could Uncoded 10/14/18 01:53 not wake up" steroids Allergy Hallucinati Uncoded 10/14/18 01:53 ons Physical Examination On examination, the patient is lying in bed in no apparent distress. She is alert nourished 3. Head is atraumatic and normocephalic. Her breathing appears nonlabored. On inspection of the left upper extremity, there is diffuse swelling and ecchymosis of the left hand. There is tenderness to palpation of the second metacarpal base. There is also tenderness to palpation of the Anatomic snuffbox. Radial pulse palpable, brisk capillary refill of all fingers and thumb. Motor and sensory function are intact. On examination of the right lower extremity, there is diffuse ecchymosis of the anterior knee and proximal lower leg. There is pain on palpation of the anterior knee. There is no pain with passive range of motion of the knee. Rig ht lower extremity is warm and well perfused. Patient has good range of motion of the ankle and foot. Motor and sensory function are intact. Results Right knee x-ray 04/22/19: No acute fractures. Left hand x-ray 04/22/19: Nondisplaced fracture of the proximal second meta carpal. Concern for nondisplaced fracture of the scaphoid. - Labs Labs: Abnormal Lab Results - Last 24 Hours (Table) 04/22/19 04/22/19 04/22/19 Range/Units 14:55 14:55 14:55 Hgb 11.1 L (11.4-16.0) gm/dL Hct (34.0-46.0) % MCV 75.0 L (80.0-100.0) fL MCH 23.0 L (25.0-35.0) pg MCHC 30.6 L (31.0-37.0) g/dL RDW 17.4 H (11.5-15.5) % Lymphocytes # 0.7 L (1.0-4.8) k/uL Glucose 108 H (74-99) mg/dL POC Glucose (mg/dL) (75-99) mg/dL Hemoglobin A1c 6.1 H (4.0-6.0) % Total Bilirubin 2.0 H (0.2-1.3) mg/dL Alkaline Phosphatase 158 H (38-126) U/L 04/22/19 04/22/19 04/23/19 Range/Units 16:51 20:41 06:28 Hgb 10.4 L (11.4-16.0) gm/dL Hct 33.9 L (34.0-46.0) % MCV 74.3 L (80.0-100.0) fL MCH 22.7 L (25.0-35.0) pg MCHC 30.6 L (31.0-37.0) g/dL RDW 17.6 H (11.5-15.5) % Lymphocytes # 0.7 L (1.0-4.8) k/uL Glucose (74-99) mg/dL POC Glucose (mg/dL) 131 H 137 H (75-99) mg/dL Hemoglobin A1c (4.0-6.0) % Total Bilirubin (0.2-1.3) mg/dL Alkaline Phosphatase (38-126) U/L 04/23/19 04/23/19 04/23/19 Range/Units 06:28 06:54 12:11 Hgb (11.4-16.0) gm/dL Hct (34.0-46.0) % MCV (80.0-100.0) fL MCH (25.0-35.0) pg MCHC (31.0-37.0) g/dL RDW (11.5-15.5) % Lymphocytes # (1.0-4.8) k/uL Glucose 111 H (74-99) mg/dL POC Glucose (mg/dL) 114 H 109 H (75-99) mg/dL Hemoglobin A1c (4.0-6.0) % Total Bilirubin 2.3 H (0.2-1.3) mg/dL Alkaline Phosphatase 131 H (38-126) U/L H & H 04/22/19 04/23/19 Range/Units 14:55 06:28 Hgb 11.1 L 10.4 L (11.4-16.0) gm/dL Hct 36.3 33.9 L (34.0-46.0) % Result Diagrams: 04/23/19 06:28 04/23/19 06:28 Assessment and Plan Assessment: Non-displaced fracture of the second metacarpal base, left. Possible fracture of the scaphoid, left. Plan: - Clinical and x-ray findings were discussed with the patient. CT scan of the left wrist was recommended, based on the concern for a scaphoid fracture. - Nonsurgical treatment is recommended at this time. Recommend immobilization of the left wrist and hand with a removable wrist brace. - Further recommendations will be based off the CT scan results. - Recommended rest, ice, elevation of the left hand for swelling and pain control. - Pain management per admitting team. - Upon discharge, the patient may follow-up in our office as an outpatient. Patient discussed with Dr. Ratliff.
--- NOTE | 2019-04-23 13:01 | ECHOF ---
Referral Reason:check EF MEASUREMENTS -------- HEIGHT: 147.3 cm WEIGHT: 79.4 kg BP: 155/78 RVIDd: 2.9 cm (< 3.3) IVSd: 1.2 cm (0.6 - 1.1) LVIDd: 4.0 cm (3.9 - 5.3) LVPWd: 1.1 cm (0.6 - 1.1) IVSs: 1.7 cm LVIDs: 2.8 cm LVPWs: 1.3 cm LA Diam: 3.4 cm (2.7 - 3.8) LAESV Index (A-L): 38.23 ml/m Ao Diam: 2.8 cm (2.0 - 3.7) AV Cusp: 1.5 cm (1.5 - 2.6) MV EXCURSION: 16.703 mm (> 18.000) MV EF SLOPE: 120 mm/s (70 - 150) EPSS: 0.2 cm MV E Renan: 1.48 m/s MV DecT: 148 ms MV A Renan: 0.32 m/s MV E/A Ratio: 4.63 AV maxP.23 mmHg AV meanP.16 mmHg RAP: 15.00 mmHg RVSP: 91.86 mmHg FINDINGS -------- Paced rhythm. This was a technically adequate study. The left ventricular size is normal. There is borderline concentric left ventricular hypertrophy. Left ventricular systolic function is hyperdynamic with an estimated EF of >70%. Diastolic dysfunc tion The right ventricle is normal in size. LA is moderately dilated 34-39 ml/m2 The right atrium is normal in size. Aneurysmal Interatrial septum. There is mild to moderate aortic valve sclerosis. There is mild aortic regurgitation. There is mo derate aortic stenosis present. Peak/mean gradient across the Aortic Valve is 48.23mmHg / 26.16mmHg . LVOT obstruction with mean gradient of 25 mm/ Hg The mitral valve leaflets are mildly thickened. Mild mitral annular calcification present. Mild m itral regurgitation is present. Moderate to severe tricuspid regurgitation present. There is moderate to severe pulmonary hypertens ion. The right ventricular systolic pressure, as measured by Doppler, is 91.86mmHg. Trace/mild (physiologic) pulmonic regurgitation. The aortic root size is normal. The inferior vena cava is dilated with no significant inspiratory collapse which is consistent estima christopher right atrial pressure of >15 mmHg. There is no pericardial effusion. CONCLUSIONS -------- 1. Paced rhythm. 2. This was a technically adequate study. 3. The left ventricular size is normal. 4. There is borderline concentric left ventricular hypertrophy. 5. Left ventricular systolic function is hyperdynamic with an estimated EF of >70%. 6. Diastolic dysfunction 7. The right ventricle is normal in size. 8. LA is moderately dilated 34-39 ml/m2 9. The right atrium is normal in size. 10. Aneurysmal Interatrial septum. 11. There is mild to moderate aortic valve sclerosis. 12. There is moderate aortic stenosis present. 13. Peak/mean gradient across the Aortic Valve is 48.23mmHg / 26.16mmHg. 14. LVOT obstruction with mean gradient of 25 mm/ Hg 15. The mitral valve leaflets are mildly thickened. 16. Mild mitral annular calcification present. 17. Mild mitral regurgitation is present. 18. Moderate to severe tricuspid regurgitation present. 19. There is moderate to severe pulmonary hypertension. 20. The right ventricular systolic pressure, as measured by Doppler, is 91.86mmHg. 21. Trace/mild (physiologic) pulmonic regurgitation. 22. The aortic root size is normal. 23. The inferior vena cava is dilated with no significant inspiratory collapse which is consistent es timated right atrial pressure of >15 mmHg. 24. There is no pericardial effusion. DRIER FEEDER: Rachell Prather RDCS
--- NOTE | 2019-04-23 13:28 | P.CRDCN ---
History of Present Illness History of present illness: This is a pleasant 73-year-old female past medical history significant for hypertrophic cardiomyopathy, diabetes mellitus, sick sinus syndrome status post permanent pacemaker implantation, TIA, hypertension, dyslipidemia and chronic persistent atrial fibrillation on long-term anticoagulation. She follows in the office with Dr. Ruby. We have been asked to see her in consultation secondary to syncope. She states yesterday she was walking out to get her mail when she became acutely dizzy. She states it felt like the room was spinning. As she was walking back to the house she had a syncopal spell falling to the ground. She does not remember the course of events prior to falling other than that she felt dizzy. She denies having any symptoms of chest discomfort, shortness of breath, dizziness, nausea, vomiting or palpitations. She called her primary care physician and was sent to the hospital for further evaluation. She states she chronically suffers from shortness of breath at times sometimes at rest sometimes with exertion. This has been going on for the past several months. She recently underwent a stress test in the office February 2019 with a Lexiscan stress test was negative for reversible cardiac ischemia. EKG on arrival reveals atrial fibrillation with nonspecific abnormalities. Chest x-ray reveals pulmonary interstitial fibrosis, congestive heart failure. Laboratory data reviewed, WBC 4.8, hemoglobin 10.4, platelets 161, sodium 139, potassium 3.5, creatinine 1.04, cardiac enzymes negative 2, NT proBNP 4990, TSH 4.32. Current cardiac medications include Eliquis 5 mg twice a day, atorvastatin 20 mg daily, Lasix 20 mg twice a day, Lopressor 50 mg twice a day. Most recent echocardiogram obtained in the office September 2018 reveals prese rved LV systolic function with ejection fraction 55% with an LVOT gradient of 39 mmHg. At the time of my exam: CONSTITUTIONAL: Denies fever. Denies chills. EYES: Denies blurred vision. Denies vision changes. Denies eye pain. EARS, NOSE, MOUTH & THROAT: Denies headache. Denies sore throat. Denies ear pain. CARDIOVASCULAR: Denies chest pain. Complains of shortness of breath. Denies orthopnea. Denies PND. Denies palpitations. RESPIRATORY: Denies cough. GASTROINTESTINAL: Denies abdominal pain. Denies diarrhea. Denies constipation. Denies nausea. Denies vomiting. MUSCULOSKELETAL: Denies myalgias. INTEGUMENTARY: Denies pruitis. Denies rash. NEUROLOGIC: Denies numbness. Denies tingling. Denies weakness. PSYCHIATRIC: Denies anxiety. Denies depression. ENDOCRINE: Denies fatigue. Denies weight change. Denies polydipsia. Denies polyurina. GENITOURINARY: Denies burning, hematuria or urgency with micturation. HEMATOLOGIC: Denies history of anemia. Denies bleeding. Blood pressure 147/84 heart rate 75 afebrile maintaining oxygen saturation on room air GENERAL: This is a 73-year-old female in no apparent distress at the time of my examination. HEENT: Head is atraumatic, normocephalic. Pupils are equal, round. Sclerae anicteric. Conjunctivae are clear. Mucous membranes of the mouth are moist. Neck is supple. There is mild jugular venous distention. No carotid bruit is heard. LUNGS: Bibasilar rales, no wheezes or rhonchi. No chest wall tenderness is noted on palpation or with deep breathing. HEART: Irregular rate and rhythm with systolic ejection murmur at the base, no rubs or gallops. S1 and S2 heard. ABDOMEN: Soft, mildly tender left upper quadrant with evidence of liver e nlargement. Bowel sounds are heard. EXTREMITIES: No evidence of peripheral edema and no calf tenderness noted. VASCULAR: Radial and dorsalis pedis pulses palpated, no evidence of clubbing. NEUROLOGIC: Patient is awake, alert and oriented x3. 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 of the abdomen without contrast. Interrogate device with [employer] for an acute event during episode of syncope Monday. Document accurate intake and output along with daily weights. Echo has been obtained and will be reviewed. Further recommendations to follow based on clinical course. Thank you kindly for this consultation. Nurse Practitioner note has been reviewed, I agree with a documented findings and plan of care. Patient was seen and examined. Past Medical History Past Medical History: Cancer, CVA/TIA, Diabetes Mellitus, Fibromyalgia, O steoarthritis (OA), Pneumonia, Skin Disorder Additional Past Medical History / Comment(s): hx hiatal hernia, diarrhea, leakage of urine/urgency, "dry skin", anemia, skin cancer History of Any Multi-Drug Resistant Organisms: None Reported Past Surgical History: Appendectomy, Cholecystectomy, Heart Catheterization, Hysterectomy, Joint Replacement, Orthopedic Surgery, Pacemaker, Tonsillectomy, Tubal Ligation Additional Past Surgical History / Comment(s): cyril heel spurs, left shoulder rotator cuff, bone biopsy, cyril cataracts Past Anesthesia/Blood Transfusion Reactions: Previous Problems w/ Anesthesia, Family History of Problems w/ Anesthesia, Postoperative Nausea & Vomiting (PONV) Additional Past Anesthesia/Blood Transfusion Reaction / Comment(s): "could not wake for several days after knee replacement". brother PONV. Type of Cardiac Device: Permanent Pacemaker Device Placement Date:: 04/2009 Smoking Status: Former smoker - Past Family History Father Family Medical History: Cancer Additional Family Medical History / Comment(s): skin Mother Family Medical History: Seizure Disorder Medications and Allergies Home Medications Medication Instructions Recorded Confirmed Type Atorvastatin [Lipitor] 20 mg PO HS 08/24/16 04/22/19 History Furosemide [Lasix] 20 mg PO BID 08/24/16 04/22/19 History metFORMIN HCL [Glucophage] 500 mg PO BID 08/24/16 04/22/19 History Tolterodine Tartrate [Detrol LA] 4 mg PO DAILY 10/14/18 04/22/19 History Apixaban [Eliquis] 5 mg PO BID 30 Days #60 tab 10/15/18 04/22/19 Rx Metoprolol Tartrate [Lopressor] 50 mg PO BID tab 10/15/18 04/22/19 Rx Levothyroxine Sodium [Synthroid] 25 mcg PO DAILY 04/22/19 04/22/19 History Allergies Allergy/AdvReac Type Severity Reaction Status Date / Time codeine Allergy Unknown Verified 04/22/19 12:49 hydrocodone bitartrate Allergy Nausea & Verified 04/22/19 12:49 [From Vicodin] Vomiting & Diarrhea prednisone Allergy brought on Verified 04/22/19 12:49 diabetes cortisone injections Allergy brought on Uncoded 10/14/18 01:53 diabetes sedatives Allergy "I could Uncoded 10/14/18 01:53 not wake up" steroids Allergy Hallucinati Uncoded 10/14/18 01:53 ons Physical Exam Vitals: Vital Signs Temp Pulse Pulse Resp BP BP Pulse Ox 08/27/19 07:31 97.6 F 74 16 148/85 93 L 04/23/19 04:00 97.4 F L 67 18 148/83 96 04/22/19 23:46 93 04/22/19 23:14 97.6 F 93 18 125/74 93 L 04/22/19 19:59 97.5 F L 115 H 18 135/84 96 04/22/19 13:06 97.3 F L 87 18 155/78 98 Intake and Output 04/22/19 04/23/19 04/23/19 22:59 06:59 14:59 Intake Total 240 Balance 240 Intake: Oral 240 Other: Voiding Method Toilet Toilet Toilet # Voids 1 1 Results 04/23/19 06:28 04/23/19 06:28 Cardiac Enzymes 04/22/19 04/22/19 04/23/19 Range/Units 14:55 14:55 06:28 AST 35 23 (14-36) U/L Troponin I <0.012 (0.000-0.034) ng/mL CBC 04/22/19 04/23/19 Range/Units 14:55 06:28 WBC 6.1 4.8 (3.8-10.6) k/uL RBC 4.84 4.57 (3.80-5.40) m/uL Hgb 11.1 L 10.4 L (11.4-16.0) gm/dL Hct 36.3 33.9 L (34.0-46.0) % Plt Count 167 161 (150-450) k/uL Comprehensive Metabolic Panel 04/22/19 04/23/19 Range/Units 14:55 06:28 Sodium 139 139 (137-145) mmol/L Potassium 3.9 3.5 (3.5-5.1) mmol/L Chloride 104 104 (98-107) mmol/L Carbon Dioxide 23 25 (22-30) mmol/L BUN 13 14 (7-17) mg/dL Creatinine 0.89 1.04 (0.52-1.04) mg/dL Glucose 108 H 111 H (74-99) mg/dL Calcium 9.0 8.8 (8.4-10.2) mg/dL AST 35 23 (14-36) U/L ALT 19 23 (9-52) U/L Alkaline Phosphatase 158 H 131 H (38-126) U/L Total Protein 7.5 6.8 (6.3-8.2) g/dL Albumin 4.1 3.7 (3.5-5.0) g/dL Current Medications Generic Name Dose Route Start Last Admin Trade Name Freq PRN Reason Stop Dose Admin Acetaminophen 650 mg 04/22/19 13:18 04/22/19 21:38 Tylenol Tab PO 650 mg Q6HR PRN Administration Fever and/ or Pain Atorvastatin Calcium 20 mg 04/22/19 21:00 04/22/19 21:39 Lipitor PO 20 mg HS LOLY Administration Famotidine 20 mg 04/22/19 13:30 04/22/19 16:15 Pepcid PO 20 mg DAILY LOLY Administration Furosemide 20 mg 04/22/19 21:00 04/22/19 21:39 Lasix PO 20 mg BID LOLY Administration Insulin Aspart 0 unit 04/22/19 17:30 04/23/19 07:47 Novolog SQ Not Given ACHS [facility] Protocol Levothyroxine Sodium 25 mcg 04/23/19 06:30 04/23/19 06:29 Synthroid PO 25 mcg DAILY@0630 LOLY Administration Metformin HCl 500 mg 04/22/19 17:30 04/22/19 17:38 Glucophage PO 500 mg BID-W/MEALS LOLY Administration Metoprolol Tartrate 50 mg 04/22/19 21:00 04/22/19 22:37 Lopressor PO 50 mg BID LOLY Administration Oxybutynin Chloride 10 mg 04/23/19 09:00 Ditropan Xl PO DAILY [facility] Intake and Output 04/22/19 04/23/19 04/23/19 22:59 06:59 14:59 Intake Total 240 Balance 240 Intake: Oral 240 Other: Voiding Method Toilet Toilet Toilet # Voids 1 1 04/23/19 06:28 04/23/19 06:28
[2019-04-23 15:33] LABS: Iron Saturation 6.02 (12.00-45.00)
[2019-04-23 17:00] LABS: Glucose,Whole Blood 115 mg/dL (75-99)
[2019-04-23] MEDS: ACETAMINOPHEN TAB 325 MG TAB PO PRN (18:50)
[2019-04-23 20:57] LABS: Glucose,Whole Blood 111 mg/dL (75-99)
[2019-04-23] MEDS: ATORVASTATIN 20 MG TAB PO SCH (21:03)
[2019-04-24 05:49] LABS: Anisocytosis Slight; Basophils # (A) 0.1 k/uL (0-0.2); Basophils % (A) 1 %; Eosinophils # (A) 0.2 k/uL (0-0.7); Eosinophils % (A) 4 %; HCT 35.5 % (34.0-46.0); HGB 10.4 gm/dL (11.4-16.0); Hypochromasia Marked; Lymphocytes # (A) 0.7 k/uL (1.0-4.8); Lymphocytes % (A) 15 %; MCH 22.2 pg (25.0-35.0); MCHC 29.4 g/dL (31.0-37.0); MCV 75.7 fL (80.0-100.0); Mean Platelet Volume 7.7; Microcytosis Slight; Monocytes # (A) 0.5 k/uL (0-1.0); Monocytes % (A) 10 %; Neutrophils # (A) 3.1 k/uL (1.3-7.7); Neutrophils % (A) 66 %; Platelet Count 182 k/uL (150-450); Poikilocytosis Slight; RBC 4.68 m/uL (3.80-5.40); RDW 17.5 % (11.5-15.5); WBC 4.7 k/uL (3.8-10.6)
[2019-04-24 05:56] LABS: Albumin 3.5 g/dL (3.5-5.0); Calcium 8.7 mg/dL (8.4-10.2); Potassium 3.5 mmol/L (3.5-5.1); Total Bilirubin 2.3 mg/dL (0.2-1.3); Total Protein 6.5 g/dL (6.3-8.2)
[2019-04-24 06:39] LABS: Glucose,Whole Blood 102 mg/dL (75-99)
[2019-04-24] MEDS: LEVOTHYROXINE 25 MCG TAB PO SCH (06:42)
[2019-04-24] MEDS: INSULIN ASPART (NovoLOG) 100 UNIT/ML VIAL SQ SCH ×4 (09:38→19:55)
[2019-04-24] MEDS: ACETAMINOPHEN TAB 325 MG TAB PO PRN (09:46)
[2019-04-24] MEDS: SPIRONOLACTONE 25 MG TAB PO SCH (09:47)
[2019-04-24] MEDS: OXYBUTYNIN 10 MG TAB.ER.24 PO SCH (09:47)
[2019-04-24] MEDS: METOPROLOL TARTRATE 50 MG TAB PO SCH ×2 (09:47→19:58)
[2019-04-24] MEDS: FUROSEMIDE 10 MG/ML 4 ML VIAL IV SCH ×2 (09:47→19:58)
[2019-04-24] MEDS: FAMOTIDINE 20 MG TAB PO SCH (09:47)
[2019-04-24] MEDS: metFORMIN 500 MG TAB PO SCH ×2 (09:47→17:50)
--- NOTE | 2019-04-24 10:45 | P.PN ---
Subjective Progress Note Date: 04/24/19 This is a 73-year-old female with a known history of atrial fibrillation anticoagulated with Eliquis, hypertrophic obstructive cardiomyopathy, sick sinus syndrome with pacemaker, hyperlipidemia, hypothyroidism, diabetes mellitus type 2, fibromyalgia, iron deficiency anemia and skin cancer. She is a direct admit from Dr. Krause's office. Patient is admitted to the hospital for a syncopal episode. Yesterday patient was walking to her mailbox when she became dizzy. She turned around and try to get back to the house. However, she passed out landing on the ground. Patient feels that she may have passed out for a few seconds. When she came to she was aware of her surroundings. At that time she did injure her left hand and wrist as well as her right knee. Patient's helped her get back into the house. Patient reports having incontinence of stool upon standing and getting into the house. But she does report taking 4 stool softeners for constipation earlier that day. Denies any incontinence of urine. She's had syncopal episodes in the past. Patient denies any chest pain or heart palpitations. She does report some shortness of breath but nothing worse than usual. Denies any cough, fever, chills, sweats, nausea or vomiting, bowel movement changes or urinary symptoms. Patient is been admitted to the hospital for syncopal workup. Cardiology is been placed in consult, check computed tomography scan of the brain echo and carotid. She was placed on telemetry monitoring for any cardiac arrhythmias. X-rays of the injured areas including left hand and wrist and right knee have been ordered. 04/23/2019 patient lying in bed comfortably. She does reports some shortness of breath occasionally through the night. Chest x-ray showing some signs of CHF. She is currently on oral Lasix. Cardiology on consult. They've ordered a BNP. Awaiting 2-D echo results. Patient denies any chest pain. Denies any nausea or vomiting. Denies any bowel changes or urinary symptoms. Denies any dizziness or lightheadedness. Patient seen by neurology. X-rays reviewed. There is a acute transversely orientated non-comminuted, nondisplaced fracture proximal second metacarpal metaphysis of the left hand and a solid old questionable onset of the scaphoid. Orthopedics have been consulted. On 04/24/2019 patient's alert and oriented 3 resting comfortably in bed. Patient was started on Lasix IV every 12 hours. Patient reports she still having some shortness of breath. At this time patient denies chest pain. Patient denies nausea vomiting or diarrhea. Patient denies any urinary frequency. Computed tomography scan of the wrist has been ordered per orthopedic services. Objective - Vital Signs Vital signs: Vital Signs Temp 97.4 F L 04/24/19 08:00 Pulse 77 04/24/19 08:00 Resp 17 04/24/19 08:00 BP 119/75 04/24/19 08:00 Pulse Ox 93 L 04/24/19 08:00 Intake & Output 04/23/19 04/24/19 04/24/19 18:59 06:59 18:59 Weight 84.2 kg Other: Voiding Method Toilet Toilet # Voids 2 - Exam Head normocephalic Neck supple Lungs diminished at the bases Heart regular rate and rhythm S1-S2, no rub or gallop positive murmur Abdomen is soft nontender nondistended positive bowel sounds no hepatosplenomegaly Extremities swelling noted on the lower extremities bilaterally.Rash noted along both tibia is not new. Patient has swelling in the left hand and wrist with bruising and limited range of motion. Swelling and bruising noted in right knee Neuro alert and orientated to 3 - Labs CBC & Chem 7: 04/24/19 05:35 04/24/19 05:35 Labs: Abnormal Lab Results - Last 24 Hours (Table) 04/23/19 04/23/19 04/23/19 Range/Units 09:11 12:11 17:00 Hgb (11.4-16.0) gm/dL MCV (80.0-100.0) fL MCH (25.0-35.0) pg MCHC (31.0-37.0) g/dL RDW (11.5-15.5) % Lymphocytes # (1.0-4.8) k/uL Creatinine (0.52-1.04) mg/dL Glucose (74-99) mg/dL POC Glucose (mg/dL) 109 H 115 H (75-99) mg/dL Iron 24 L (50-170) ug/dL Iron Saturation 6.02 L (12.00-45.00) Total Bilirubin (0.2-1.3) mg/dL Alkaline Phosphatase (38-126) U/L 04/23/19 04/24/19 04/24/19 Range/Units 20:53 05:35 05:35 Hgb 10.4 L (11.4-16.0) gm/dL MCV 75.7 L (80.0-100.0) fL MCH 22.2 L (25.0-35.0) pg MCHC 29.4 L (31.0-37.0) g/dL RDW 17.5 H (11.5-15.5) % Lymphocytes # 0.7 L (1.0-4.8) k/uL Creatinine 1.46 H (0.52-1.04) mg/dL Glucose 111 H (74-99) mg/dL POC Glucose (mg/dL) 111 H (75-99) mg/dL Iron (50-170) ug/dL Iron Saturation (12.00-45.00) Total Bilirubin 2.3 H (0.2-1.3) mg/dL Alkaline Phosphatase 127 H (38-126) U/L 04/24/19 Range/Units 06:38 Hgb (11.4-16.0) gm/dL MCV (80.0-100.0) fL MCH (25.0-35.0) pg MCHC (31.0-37.0) g/dL RDW (11.5-15.5) % Lymphocytes # (1.0-4.8) k/uL Creatinine (0.52-1.04) mg/dL Glucose (74-99) mg/dL POC Glucose (mg/dL) 102 H (75-99) mg/dL Iron (50-170) ug/dL Iron Saturation (12.00-45.00) Total Bilirubin (0.2-1.3) mg/dL Alkaline Phosphatase (38-126) U/L Assessment and Plan Assessment: 1. Syncopal episode with fall and collapse: Orthostatic blood pressure was negative. Computed tomography scan the brain showing no acute intracranial hemo rrhage or midline shift. Did reveal diffuse age-related cerebral atrophy and chronic small vessel ischemic change noted. No evidence of any cardiac arrhythmias. Carotid Doppler is negative for any significant hemodynamic stenosis. 2-D echo completed showing EF greater than 70%. Cardiology is fo llowing. Patient also seen by neurology. 2. Left hand and wrist swelling and bruising and right knee bruising and swelling. X-ray showing acute transversely orientated non-comminuted, nondisplaced fracture of the proximal second metacarpal metaphysis of the left hand. Subtle questionable onset of the scaphoid. Also mild to moderate arthropathy of the left hand most pronounced of the distal interphalangeal joint of the third digit with ulnar subluxation . CT of wrist ordered per orthopedic services. Per orthopedic service is nonsurgical treatment recommended at this time patient follow-up outpatient 3. History of hypertrophic cardiomyopathy 4. History of sick sinus syndrome with pacemaker placement 5. History of chronic persistent atrial fibrillation anticoagulated with Eliqui s. Continue metoprolol for rate control 6. Hyperlipidemia continue statin 7. Hypothyroidism continue Synthroid 8. Diabetes mellitus type 2: Resume metformin. Add NovoLog sliding scale coverage with Accu-Cheks every before meals and at bedtime. Check hemoglobin A1c 9. History of fibromyalgia 10. Prior history of iron deficiency anemia 11. Normal pressure hydrocephalus and differential noted on computed tomography scan of the brain. Patient seen evaluated by neurology. They are recommending neurosurgeon evaluation and workup in the outpatient setting. 12. Shortness of breath possibly related to congestive heart failure exacerbation. Echo in August 2018 showed an EF of 55%. Patient has known chronic diastolic CHF. Check BNP level. Await further cardiology recommendatio ns regarding diuretics. Patient has been started on IV Lasix 40 mg twice a day per cardiology 13. Anemia hemoglobin 10.4. Iron low at 24 and saturation low at 6.02 Possibly acute blood loss anemia due to significant bruising in the left hand and knee. Continue to monitor. She has been started on ferrous sulfate GI prophylaxis Pepcid and DVT SCDs. Eliquis currently on hold due to significa nt bruising in the left hand and right knee. And also awaiting orthopedic evaluation. I performed an examination of the patient and discussed their management with the Nurse Practitioner. I have reviewed the Nurse Practitioner's notes and agree with the documented findings and plan of care
[2019-04-24 11:54] LABS: Glucose,Whole Blood 102 mg/dL (75-99)
[2019-04-24] MEDS: ONDANSETRON 4 MG/2 ML VIAL IVP PRN (12:10)
--- NOTE | 2019-04-24 13:07 | P.PN ---
Subjective This is a pleasant 73-year-old female past medical history significant for hypertrophic cardiomyopathy, diabetes mellitus, sick sinus syndrome status post permanent pacemaker implantation, TIA, hypertension, dyslipidemia and chronic persistent atrial fibrillation on long-term anticoagulation. She follows in the office with Dr. Ruby. We have been asked to see her in consultation secondary to syncope. Pt is seen and examined sitting up in bed in no acute distress. She continues to feel short of breath and overall weak/fatigued. She has had no further episodes of dizziness or syncope. CT of the abdomen revealed small amount of non-specific fluid/ascites around the liver. Small amount of ascites throughout the abdominal mesentary. Small to moderate size pleural effusion R>L. Device interrogation pending. Echocardiogram revealed hyperdynamic LV with EF >70%, distolic dysfunction, moderately dilated LA, mild-moderate aortic stenosis with mean gradient 26 mmHg, LVOT obstruction with gradient 25 mmHg , mild MR, moderate to severe TR and moderate pulmonary hypertension with RVSP 91 mmHg. She has been maintained on IV lasix and aldactone was added. Blood pressure 137/72 heart rate 76 afebrile and maintaining oxygen saturation on room air. Laboratory data reviewed, hgb 10.4, plt 182, sodium 139, potassium 3.5, creatinine 1.46, proBNP 4990 GENERAL: This is a 73-year-old female in no apparent distress at the time of my examination. HEENT: Head is atraumatic, normocephalic. Pupils are equal, round. Sclerae anicteric. Conjunctivae are clear. Mucous membranes of the mouth are moist. Neck is supple. There is mild jugular venous distention. No carotid bruit is heard. LUNGS: Clear to auscultation bilaterally, no rales, wheezes or rhonchi. No chest wall tenderness is noted on palpation or with deep breathing. HEART: Irregular rate and rhythm with systolic ejection murmur at the base, no rubs or gallops. S1 and S2 heard. ABDOMEN: Soft, mildly tender left upper quadrant with evidence of liver enlargement. Bowel sounds are heard. EXTREMITIES: No evidence of peripheral edema and no calf tenderness noted. papular rash to b/l lower extremities. ASSESSMENT Acute on chronic diastolic failure with evidence of hepatic congestion and ascites Syncope, unknown cause at this point. No arrhythmias noted. Persistent atrial fibrillation on alf anticoagulation with controlled ventricular response Hypertrophic cardiomyopathy Permanent pacemaker implantation Hypertension Dyslipidemia History of TIA PLAN She is showing improvement in breathing. Will transition to oral diuretics tomorrow. Repeat renal function in the morning. Nurse Practitioner note has been reviewed, I agree with a documented findings and plan of care. Patient was seen and examined. Objective - Vital Signs Vital signs: Vital Signs Temp 97.4 F L 04/24/19 08:00 Pulse 77 04/24/19 08:00 Resp 17 04/24/19 08:00 BP 119/75 04/24/19 08:00 Pulse Ox 93 L 04/24/19 08:00 Intake & Output 04/23/19 04/24/19 04/24/19 18:59 06:59 18:59 Weight 84.2 kg Other: Voiding Method Toilet Toilet Toilet # Voids 2 - Labs CBC & Chem 7: 04/24/19 05:35 04/24/19 05:35 Labs: Abnormal Lab Results - Last 24 Hours (Table) 04/23/19 04/23/19 04/23/19 Range/Units 09:11 17:00 20:53 Hgb (11.4-16.0) gm/dL MCV (80.0-100.0) fL MCH (25.0-35.0) pg MCHC (31.0-37.0) g/dL RDW (11.5-15.5) % Lymphocytes # (1.0-4.8) k/uL Creatinine (0.52-1.04) mg/dL Glucose (74-99) mg/dL POC Glucose (mg/dL) 115 H 111 H (75-99) mg/dL Iron 24 L (50-170) ug/dL Iron Saturation 6.02 L (12.00-45.00) Total Bilirubin (0.2-1.3) mg/dL Alkaline Phosphatase (38-126) U/L 04/24/19 04/24/19 04/24/19 Range/Units 05:35 05:35 06:38 Hgb 10.4 L (11.4-16.0) gm/dL MCV 75.7 L (80.0-100.0) fL MCH 22.2 L (25.0-35.0) pg MCHC 29.4 L (31.0-37.0) g/dL RDW 17.5 H (11.5-15.5) % Lymphocytes # 0.7 L (1.0-4.8) k/uL Creatinine 1.46 H (0.52-1.04) mg/dL Glucose 111 H (74-99) mg/dL POC Glucose (mg/dL) 102 H (75-99) mg/dL Iron (50-170) ug/dL Iron Saturation (12.00-45.00) Total Bilirubin 2.3 H (0.2-1.3) mg/dL Alkaline Phosphatase 127 H (38-126) U/L 04/24/19 Range/Units 11:53 Hgb (11.4-16.0) gm/dL MCV (80.0-100.0) fL MCH (25.0-35.0) pg MCHC (31.0-37.0) g/dL RDW (11.5-15.5) % Lymphocytes # (1.0-4.8) k/uL Creatinine (0.52-1.04) mg/dL Glucose (74-99) mg/dL POC Glucose (mg/dL) 102 H (75-99) mg/dL Iron (50-170) ug/dL Iron Saturation (12.00-45.00) Total Bilirubin (0.2-1.3) mg/dL Alkaline Phosphatase (38-126) U/L
--- NOTE | 2019-04-24 13:36 | P.PN ---
Subjective Progress Note Date: 04/24/19 This patient is a 73-year-old female with a past medical history of atrial fibrillation currently on Eliquis, Cardiomyopathy, standing 6 syndrome with pacemaker, hyperlipidemia, hypothyroidism, diabetes type 2, and fibromyalgia that presented to Dr. Kraues's office yesterday for a chief complaint of syncop e. Patient states she was walking out to her mailbox yesterday when she suddenly became very dizzy and passed out. She states she does not remember falling or how she fell. She states her helped her get back into the home. She states she presented to Dr. Krause's office for evaluation, The patient states she was instructed to the hospital for direct admission. Patient states after she fell she experienced left wrist pain, as well as right knee pain. In the emergency department, x-rays revealed a left second proximal metacarpal fracture. The radiologist also noticed a possible scaphoid fracture. Right knee x-rays were negative for acute fractures. The patient was admitted under Dr. Krause with consults placed orthopedic surgery for evaluation and treatment. At time of exam, the patient is complaining of left wrist pain and right knee pain. Patient denies pain anywhere else. She denies numbness or tingling of the left upper extremity, right lower extremity. She denies additional complaints at this time. Vital signs stable. 04/24/19: Patient is examined bedside this morning. She states she is currently experiencing pain in the left hand. She states the pain increases with any movement. She has not yet received the wrist brace that was ordered for her yesterday. She states she has been attempting to keep the left hand elevated. She denies any new complaints today. Vital signs stable. Objective - Vital Signs Vital signs: Vital Signs Temp 97 F L 04/24/19 12:00 Pulse 76 04/24/19 12:00 Resp 17 04/24/19 12:00 BP 137/72 04/24/19 12:00 Pulse Ox 93 L 04/24/19 12:00 Intake & Output 04/23/19 04/24/19 04/24/19 18:59 06:59 18:59 Weight 84.2 kg Other: Voiding Method Toilet Toilet Toilet # Voids 2 - Exam On examination, the patient is lying in bed in no apparent distress. She is alert and orientated 3. On inspection of the left upper extremity, there is diffuse swelling and ecchymosis of the left hand. There is tenderness to palpation of the second metacarpal base. Radial pulse palpable, brisk capillary refill of all fingers and thumb. Motor and sensory function are intact. Patient does not have full active ROM of the fingers, secondary to swelling and pain. - Labs CBC & Chem 7: 04/24/19 05:35 04/24/19 05:35 Labs: Abnormal Lab Results - Last 24 Hours (Table) 04/23/19 04/23/19 04/23/19 Range/Units 09:11 17:00 20:53 Hgb (11.4-16.0) gm/dL MCV (80.0-100.0) fL MCH (25.0-35.0) pg MCHC (31.0-37.0) g/dL RDW (11.5-15.5) % Lymphocytes # (1.0-4.8) k/uL Creatinine (0.52-1.04) mg/dL Glucose (74-99) mg/dL POC Glucose (mg/dL) 115 H 111 H (75-99) mg/dL Iron 24 L (50-170) ug/dL Iron Saturation 6.02 L (12.00-45.00) Total Bilirubin (0.2-1.3) mg/dL Alkaline Phosphatase (38-126) U/L 04/24/19 04/24/19 04/24/19 Range/Units 05:35 05:35 06:38 Hgb 10.4 L (11.4-16.0) gm/dL MCV 75.7 L (80.0-100.0) fL MCH 22.2 L (25.0-35.0) pg MCHC 29.4 L (31.0-37.0) g/dL RDW 17.5 H (11.5-15.5) % Lymphocytes # 0.7 L (1.0-4.8) k/uL Creatinine 1.46 H (0.52-1.04) mg/dL Glucose 111 H (74-99) mg/dL POC Glucose (mg/dL) 102 H (75-99) mg/dL Iron (50-170) ug/dL Iron Saturation (12.00-45.00) Total Bilirubin 2.3 H (0.2-1.3) mg/dL Alkaline Phosphatase 127 H (38-126) U/L 04/24/19 Range/Units 11:53 Hgb (11.4-16.0) gm/dL MCV (80.0-100.0) fL MCH (25.0-35.0) pg MCHC (31.0-37.0) g/dL RDW (11.5-15.5) % Lymphocytes # (1.0-4.8) k/uL Creatinine (0.52-1.04) mg/dL Glucose (74-99) mg/dL POC Glucose (mg/dL) 102 H (75-99) mg/dL Iron (50-170) ug/dL Iron Saturation (12.00-45.00) Total Bilirubin (0.2-1.3) mg/dL Alkaline Phosphatase (38-126) U/L - Imaging and Cardiology CT scan left wrist 04/23/19: Acute minimally displaced intra-articular fracture of the second metacarpal base, acute nondisplaced fracture dorsal aspect of the third metacarpal base. No additional acute fracture of the scaphoid. Assessment and Plan Assessment: Minimally displaced intra-articular fracture of the second metacarpal base, left. Nondisplaced fracture of the third metacarpal base, left. Plan: - Clinical and CT scan findings discussed with the patient. - Nonsurgical treatment is recommended at this time. Recommend immobilization of the left wrist and hand with a removable wrist brace. - Recommended rest, ice, elevation of the left hand for swelling and pain control. - Pain management per admitting team. - The patient should follow-up in our office as an outpatient 1 week following discharge for continued treatment. Patient discussed with Dr. Ratliff.
--- NOTE | 2019-04-24 16:06 | XR ---
EXAMINATION TYPE: XR shoulder complete RT DATE OF EXAM: 04/24/2019 COMPARISON: NONE HISTORY: Pain TECHNIQUE: Shoulder examined in 3 FINDINGS: The humeral head articulates with the glenoid. The acromio-clavicular junction is normal. No acute fractures or dislocations are evident. A follow up study can be performed 7-10 days from acute trauma for continued pain. IMPRESSION: 1. Normal Shoulder
[2019-04-24 17:02] LABS: Glucose,Whole Blood 105 mg/dL (75-99)
[2019-04-24] MEDS: ATORVASTATIN 20 MG TAB PO SCH (19:58)
[2019-04-24] MEDS: FERROUS SULFATE 325 MG TAB PO SCH (19:58)
[2019-04-24 20:34] LABS: Glucose,Whole Blood 124 mg/dL (75-99)
[2019-04-25] MEDS: LEVOTHYROXINE 25 MCG TAB PO SCH (05:54)
[2019-04-25 06:34] LABS: Albumin 3.9 g/dL (3.5-5.0); Potassium 3.7 mmol/L (3.5-5.1); Total Bilirubin 2.4 mg/dL (0.2-1.3)
[2019-04-25 06:51] LABS: Glucose,Whole Blood 107 mg/dL (75-99)
[2019-04-25 07:06] LABS: Anisocytosis Slight; HCT 38.3 % (34.0-46.0); HGB 11.6 gm/dL (11.4-16.0); Hypochromasia Marked; MCH 22.9 pg (25.0-35.0); MCHC 30.2 g/dL (31.0-37.0); MCV 75.9 fL (80.0-100.0); Mean Platelet Volume 7.8; Microcytosis Slight; Platelet Count 251 k/uL (150-450); RBC 5.04 m/uL (3.80-5.40); RDW 17.6 % (11.5-15.5); WBC 6.3 k/uL (3.8-10.6)
[2019-04-25 07:24] LABS: Eosinophils # (M) 0.19 k/uL (0-0.7); Lymphocytes # (M) 0.57 k/uL (1.0-4.8); Monocytes # (M) 0.69 k/uL (0-1.0); Neutrophils % (M) 77 %; Nucleated Red Blood Cells 0 /100 WBC (0-0); Total Cells Counted 100
[2019-04-25] MEDS: INSULIN ASPART (NovoLOG) 100 UNIT/ML VIAL SQ SCH ×3 (07:31→17:03)
[2019-04-25] MEDS: metFORMIN 500 MG TAB PO SCH (07:57)
[2019-04-25] MEDS: FUROSEMIDE 10 MG/ML 4 ML VIAL IV SCH (07:58)
[2019-04-25] MEDS: FAMOTIDINE 20 MG TAB PO SCH (07:59)
[2019-04-25] MEDS: SPIRONOLACTONE 25 MG TAB PO SCH (07:59)
[2019-04-25] MEDS: OXYBUTYNIN 10 MG TAB.ER.24 PO SCH (07:59)
[2019-04-25] MEDS: FERROUS SULFATE 325 MG TAB PO SCH ×3 (07:59→20:11)
[2019-04-25] MEDS: METOPROLOL TARTRATE 50 MG TAB PO SCH ×2 (07:59→20:11)
[2019-04-25] MEDS: APIXABAN 5 MG TAB PO SCH ×2 (09:25→20:11)
--- NOTE | 2019-04-25 10:20 | XR ---
EXAMINATION TYPE: XR chest 2V DATE OF EXAM: 04/25/2019 COMPARISON: 04/22/2019 HISTORY: Heart failure. Follow-up after diuresis. TECHNIQUE: Frontal and lateral views of the chest are obtained. FINDINGS: Chronic right hemidiaphragm elevation is seen. There is improved aeration of the lungs in comparison the prior with multifocal chronic atelectasis. Biapical lucency suggests underlying COPD. Cardiomediastinal silhouette is enlarged with multilead left-sided cardiac device. No current pulmona ry vascular congestion or pleural effusion. IMPRESSION: Improved aeration of the lungs with scattered areas of atelectasis remaining. Resolved p ulmonary vascular congestion.
--- NOTE | 2019-04-25 11:11 | P.CONS ---
History of Present Illness - Reason for Consult Consult date: 04/25/19 Fluid around liver Requesting physician: Kamaljit Krause - Chief Complaint Syncope - History of Present Illness 73-year-old female with a past history of atrial fibrillation maintained on Eliquis, cardiomyopathy, sick sinus syndrome pacemaker, hypertension, hyperlipidemia, diabetes, iron deficiency anemia, for myalgia and skin carcinoma. Patient presented with acute syncopal episode. Chest x-ray on admission congestive heart failure repeat chest x-ray reported resolving pulmonary vascular congestion. CT abdomen and small amount of perihepatic ascites around the liver and gallbladder. Mild to moderate periportal edema. No mentioning of cirrhotic liver disease or portal hypertension. No history of known liver disorders. No history of EtOH abuse. No history of hepatitis. Hemoglobin 11.6. White count 6.3. MCV 75. Platelet 251. PRevious review of liver enzymes were normal. Total bilirubin 2.0-2.4. AST 23-35. ALT 18-23. AP 127-158. Review of Systems Constitutional: Denies fever, chills, sweats, weight gain, or loss. Syncope. HEENT: Negative for migraines, blurred vision or loss, earaches, drainage, tinnitus, oral mucosal lesions, dysphagia, or odynophagia. CARDIAC: Negative for chest pain, arrhythmias, or palpitation. RESPIRATORY: Negative for shortness of breath, hemoptysis, cough, or sputum production. GI: See HPI for pertinent findings. : Negative for hematuria, urgency, frequency, polyuria, or dysuria. GYNc: Negative vaginal discharge. MUSCULOSKELETAL: Negative for muscle aches, swelling, arthritis, and arthralgias. NEUROLOGIC: Negative for stroke or TIA. ENDOCRINE: Negative for thyroid problems. SKIN: Negative for rash or itching. PSYCHIATRIC: Negative history for depression and anxiety Past Medical History Past Medical History: Cancer, CVA/TIA, Diabetes Mellitus, Fibromyalgia, Osteoarthritis (OA), Pneumonia, Skin Disorder Additional Past Medical History / Comment(s): hx hiatal hernia, diarrhea, leakage of urine/urgency, "dry skin", anemia, skin cancer History of Any Multi-Drug Resistant Organisms: None Reported Past Surgical History: Appendectomy, Cholecystectomy, Heart Catheterization, Hysterectomy, Joint Replacement, Orthopedic Surgery, Pacemaker, Tonsillectomy, Tubal Ligation Additional Past Surgical History / Comment(s): cyril heel spurs, left shoulder rotator cuff, bone biopsy, cyril cataracts Past Anesthesia/Blood Transfusion Reactions: Previous Problems w/ Anesthesia, Family History of Problems w/ Anesthesia, Postoperative Nausea & Vomiting (PONV) Additional Past Anesthesia/Blood Transfusion Reaction / Comm: "could not wake for several days after knee replacement". brother PONV. Type of Cardiac Device: Permanent Pacemaker Device Placement Date:: 04/2009 Smoking Status: Former smoker - Past Family History Father Family Medical History: Cancer Additional Family Medical History / Comment(s): skin Mother Family Medical History: Seizure Disorder Medications and Allergies Home Medications Medication Instructions Recorded Confirmed Type Atorvastatin [Lipitor] 20 mg PO HS 08/24/16 04/22/19 History Furosemide [Lasix] 20 mg PO BID 08/24/16 04/22/19 History metFORMIN HCL [Glucophage] 500 mg PO BID 08/24/16 04/22/19 History Tolterodine Tartrate [Detrol LA] 4 mg PO DAILY 10/14/18 04/22/19 History Apixaban [Eliquis] 5 mg PO BID 30 Days #60 tab 10/15/18 04/22/19 Rx Metoprolol Tartrate [Lopressor] 50 mg PO BID tab 10/15/18 04/22/19 Rx Levothyroxine Sodium [Synthroid] 25 mcg PO DAILY 04/22/19 04/22/19 History Allergies Allergy/AdvReac Type Severity Reaction Status Date / Time codeine Allergy Unknown Verified 04/22/19 12:49 hydrocodone bitartrate Allergy Nausea & Verified 04/22/19 12:49 [From Vicodin] Vomiting & Diarrhea prednisone Allergy brought on Verified 04/22/19 12:49 diabetes cortisone injections Allergy brought on Uncoded 10/14/18 01:53 diabetes sedatives Allergy "I could Uncoded 10/14/18 01:53 not wake up" steroids Allergy Hallucinati Uncoded 10/14/18 01:53 ons Physical Exam Vitals: Vital Signs Temp Pulse Resp BP Pulse Ox 04/25/19 08:00 77 18 04/25/19 07:40 97.4 F L 77 18 146/82 95 04/25/19 05:53 96.9 F L 75 16 151/84 96 04/25/19 04:00 79 16 04/25/19 00:00 97.5 F L 79 16 110/70 92 L 04/24/19 23:46 77 16 04/24/19 20:00 97.2 F L 77 16 137/83 94 L 04/24/19 16:00 98.1 F 88 17 115/77 94 L 04/24/19 12:00 97 F L 76 17 137/72 93 L Intake and Output 04/24/19 04/25/19 04/25/19 22:59 06:59 14:59 Intake Total 240 Balance 240 Intake: Oral 240 Other: Voiding Method Toilet Toilet Toilet # Voids 1 1 General appearance: The patient is alert, oriented, in no acute distress. HET: Head is normocephalic and atraumatic. Pupils are equal and reactive. Oropharynx is clear without lesions. Neck: Supple without lymphadenopathy. Trache Regular rate and rhythm. Lungs: No crackles or wheezes are heard. Abdomen: Soft, nontender, nondistended with bowel sounds. No peritoneal signs. No palpable organomegaly or masses. Extremities: Normal skin color and turgor. No cyanosis, rash, ulceration, clubbing, or edema. Radial and pedal pulses are 2/4 bilaterally. Neurological: No focal deficits. Strength and sensation are grossly intact. Results CBC & Chem 7: 04/25/19 05:56 04/25/19 05:56 Labs: Abnormal Lab Results - Last 24 Hours (Table) 04/24/19 04/24/19 04/24/19 Range/Units 11:53 17:01 20:22 MCV (80.0-100.0) fL MCH (25.0-35.0) pg MCHC (31.0-37.0) g/dL RDW (11.5-15.5) % Lymphocytes # (Manual) (1.0-4.8) k/uL BUN (7-17) mg/dL Creatinine (0.52-1.04) mg/dL Glucose (74-99) mg/dL POC Glucose (mg/dL) 102 H 105 H 124 H (75-99) mg/dL Total Bilirubin (0.2-1.3) mg/dL Alkaline Phosphatase (38-126) U/L 04/25/19 04/25/19 04/25/19 Range/Units 05:56 05:56 06:49 MCV 75.9 L (80.0-100.0) fL MCH 22.9 L (25.0-35.0) pg MCHC 30.2 L (31.0-37.0) g/dL RDW 17.6 H (11.5-15.5) % Lymphocytes # (Manual) 0.57 L (1.0-4.8) k/uL BUN 23 H (7-17) mg/dL Creatinine 1.71 H (0.52-1.04) mg/dL Glucose 106 H (74-99) mg/dL POC Glucose (mg/dL) 107 H (75-99) mg/dL Total Bilirubin 2.4 H (0.2-1.3) mg/dL Alkaline Phosphatase 135 H (38-126) U/L CT scan - abdomen: report reviewed (Dr. Arita) Assessment and Plan (1) Hepatic congestion Narrative/Plan: 73-year-old female has no history of cardiomyopathy and sick sinus syndrome pacemaker admitted with syncope chest x-ray reported congestive heart failure repeat chest x-ray reported infusion with hyperbilirubinemia and normal transaminases. CT reported small amount of perihepatic ascites consistent with underlying hepatic congestion hepatopathy. No clinical or radiographic evidence to suggest underlying liver disease. Current Visit: Yes Status: Acute Code(s): K76.1 - CHRONIC PASSIVE CONGESTION OF LIVER SNOMED Code(s): 25209323 Plan: 1. No further workup from a GI standpoint. Continuous with supportive measures. DC per medicine. Thank you for this kind referral and the opportunity to participate in the care of your patient. This consultation was discussed with Dr. Arita. The impression and plan of care have been directed as dictated.
--- NOTE | 2019-04-25 11:16 | P.PN ---
Subjective Progress Note Date: 04/25/19 This is a 73-year-old female with a known history of atrial fibrillation anticoagulated with Eliquis, hypertrophic obstructive cardiomyopathy, sick sinus syndrome with pacemaker, hyperlipidemia, hypothyroidism, diabetes mellitus type 2, fibromyalgia, iron deficiency anemia and skin cancer. She is a direct admit from Dr. Krause's office. Patient is admitted to the hospital for a syncopal episode. Yesterday patient was walking to her mailbox when she became dizzy. She turned around and try to get back to the house. However, she passed out landing on the ground. Patient feels that she may have passed out for a few seconds. When she came to she was aware of her surroundings. At that time she did injure her left hand and wrist as well as her right knee. Patient's helped her get back into the house. Patient reports having incontinence of stool upon standing and getting into the house. But she does report taking 4 stool softeners for constipation earlier that day. Denies any incontinence of urine. She's had syncopal episodes in the past. Patient denies any chest pain or heart palpitations. She does report some shortness of breath but nothing worse than usual. Denies any cough, fever, chills, sweats, nausea or vomiting, bowel movement changes or urinary symptoms. Patient is been admitted to the hospital for syncopal workup. Cardiology is been placed in consult, check computed tomography scan of the brain echo and carotid. She was placed on telemetry monitoring for any cardiac arrhythmias. X-rays of the injured areas including left hand and wrist and right knee have been ordered. 04/23/2019 patient lying in bed comfortably. She does reports some shortness of breath occasionally through the night. Chest x-ray showing some signs of CHF. She is currently on oral Lasix. Cardiology on consult. They've ordered a BNP. Awaiting 2-D echo results. Patient denies any chest pain. Denies any nausea or vomiting. Denies any bowel changes or urinary symptoms. Denies any dizziness or lightheadedness. Patient seen by neurology. X-rays reviewed. There is a acute transversely orientated non-comminuted, nondisplaced fracture proximal second metacarpal metaphysis of the left hand and a solid old questionable onset of the scaphoid. Orthopedics have been consulted. On 04/24/2019 patient's alert and oriented 3 resting comfortably in bed. Patient was started on Lasix IV every 12 hours. Patient reports she still having some shortness of breath. At this time patient denies chest pain. Patient denies nausea vomiting or diarrhea. Patient denies any urinary frequency. Computed tomography scan of the wrist has been ordered per orthopedic services. 04/25/2019 patient's reporting dizziness after using the bathroom today. She does not feel that she was on a pass out. She denies any chest pain. Denies any shortness of breath at the time. She feels that her shortness of breath is improving. Chest x-ray is showing improvement. Creatinine is up to 1.71. Cardiology is switched patient to oral Lasix 40 mg twice a day. They've also restarted her Eliquis. Patient is awaiting to be evaluated by GI service. She has wrist brace in place. She does report a mixture of loose and watery stool daily for the last 2 days. Prior to admission she had taken multiple stool softeners because of constipation. Objective - Vital Signs Vital signs: Vital Signs Temp 97.4 F L 04/25/19 07:40 Pulse 77 04/25/19 08:00 Resp 18 04/25/19 08:00 BP 146/82 04/25/19 07:40 Pulse Ox 95 04/25/19 07:40 Intake & Output 04/24/19 04/25/19 04/25/19 18:59 06:59 18:59 Intake Total 240 Balance 240 Intake: Oral 240 Other: Voiding Method Toilet Toilet Toilet # Voids 1 1 - Exam Head normocephalic Neck supple Lungs diminished at the bases Heart regular rate and rhythm S1-S2, no rub or gallop positive murmur Abdomen is soft nontender nondistended positive bowel sounds no hepatosplenomeg chaitanya Extremities swelling noted on the lower extremities bilaterally.Rash noted along both tibia is not new. Left wrist brace place Swelling and bruising noted in right knee Neuro alert and orientated to 3 - Labs CBC & Chem 7: 04/25/19 05:56 04/25/19 05:56 Labs: Abnormal Lab Results - Last 24 Hours (Table) 04/24/19 04/24/19 04/24/19 Range/Units 11:53 17:01 20:22 MCV (80.0-100.0) fL MCH (25.0-35.0) pg MCHC (31.0-37.0) g/dL RDW (11.5-15.5) % Lymphocytes # (Manual) (1.0-4.8) k/uL BUN (7-17) mg/dL Creatinine (0.52-1.04) mg/dL Glucose (74-99) mg/dL POC Glucose (mg/dL) 102 H 105 H 124 H (75-99) mg/dL Total Bilirubin (0.2-1.3) mg/dL Alkaline Phosphatase (38-126) U/L 04/25/19 04/25/19 04/25/19 Range/Units 05:56 05:56 06:49 MCV 75.9 L (80.0-100.0) fL MCH 22.9 L (25.0-35.0) pg MCHC 30.2 L (31.0-37.0) g/dL RDW 17.6 H (11.5-15.5) % Lymphocytes # (Manual) 0.57 L (1.0-4.8) k/uL BUN 23 H (7-17) mg/dL Creatinine 1.71 H (0.52-1.04) mg/dL Glucose 106 H (74-99) mg/dL POC Glucose (mg/dL) 107 H (75-99) mg/dL Total Bilirubin 2.4 H (0.2-1.3) mg/dL Alkaline Phosphatase 135 H (38-126) U/L Assessment and Plan Assessment: 1. Syncopal episode with fall and collapse: Exact etiology unclear. Patient did have dizziness again upon standing after using the bathroom. We will check orthostatics. No evidence of cardiac arrhythmias. Computed tomography scan the brain showing no acute intracranial hemorrhage or midline shift. Did reveal diffuse age-related cerebral atrophy and chronic small vessel ischemic change noted. Carotid Doppler is negative for any significant hemodynamic stenosis. 2-D echo completed showing EF greater than 70%, moderate aortic stenosis. Cardiology is following. Patient also seen by neurology. 2. Minimally displaced intra-articular fracture of the second metacarpal base, left. And Nondisplaced fracture of the third metacarpal base, left. Patient seen by orthopedics. They've ordered a wrist brace. Continue Tylenol as needed for pain. Patient will need follow-up Dr. Ratliff in 1 week 3. History of hypertrophic cardiomyopathy 4. History of sick sinus syndrome with pacemaker placement 5. History of chronic persistent atrial fibrillation anticoagulated with Eliquis. Continue metoprolol for rate control 6. Hyperlipidemia continue statin 7. Hypothyroidism continue Synthroid 8. Diabetes mellitus type 2: Add NovoLog sliding scale coverage with Accu- Cheks every before meals and at bedtime. A1c 6.1. Metformin on hold due to acute kidney injury 9. History of fibromyalgia 10. Prior history of iron deficiency anemia 11. Normal pressure hydrocephalus and differential noted on computed tomography scan of the brain. Patient seen evaluated by neurology. They are recommending neurosurgeon evaluation and workup in the outpatient setting. 12. Acute on chronic diastolic CHF exacerbation with evidence of hepatic congestion and ascites. Likely the cause of patient's shortness of breath. EF greater than 70 percent. Cardiology has switched patient from IV Lasix to oral Lasix. 13. Anemia likely related to iron deficiency anemia. Patient started ferrous sulfate 325 mg twice a day. Also could have a mild component of acute blood loss anemia who significant bruising in the hand and knee. Now improving. Hemoglobin is up to 11.6. Iron low at 24 and saturation low at 6.02 14. Acute kidney injury likely cardiorenal secondary to diuretics. Cardiology has discontinue the IV Lasix and switch her over to oral Lasix. We'll hold the metformin and recheck BMP in a.m. GI prophylaxis Pepcid and DVT prophylaxis Eliquis Plan Check orthostatic blood pressure Discontinue metformin Repeat kidney function in AM I performed an examination of the patient and discussed their management with the physician Commercial Pest Control Technician. I have reviewed the Physician Commercial Pest Control Technician's notes and agree with the documented findings and plan of care
[2019-04-25 12:01] LABS: Glucose,Whole Blood 138 mg/dL (75-99)
--- NOTE | 2019-04-25 12:36 | P.PN ---
Subjective Progress Note Date: 04/25/19 This patient is a 73-year-old female with a past medical history of atrial fibrillation currently on Eliquis, Cardiomyopathy, standing 6 syndrome with pacemaker, hyperlipidemia, hypothyroidism, diabetes type 2, and fibromyalgia that presented to Dr. Krause's office yesterday for a chief complaint of syncop e. Patient states she was walking out to her mailbox yesterday when she suddenly became very dizzy and passed out. She states she does not remember falling or how she fell. She states her helped her get back into the home. She states she presented to Dr. Krause's office for evaluation, The patient states she was instructed to the hospital for direct admission. Patient states after she fell she experienced left wrist pain, as well as right knee pain. In the emergency department, x-rays revealed a left second proximal metacarpal fracture. The radiologist also noticed a possible scaphoid fracture. Right knee x-rays were negative for acute fractures. The patient was admitted under Dr. Krause with consults placed orthopedic surgery for evaluation and treatment. At time of exam, the patient is complaining of left wrist pain and right knee pain. Patient denies pain anywhere else. She denies numbness or tingling of the left upper extremity, right lower extremity. She denies additional complaints at this time. Vital signs stable. 04/25/19: Patient is examined bedside this morning. She has the wrist brace on her left wrist. She states the pain in her wrist and hand has greatly improved since she has been utilizing the brace. She states her right knee pain has improved, she is having no pain with ambulation or with ROM. The patient states she was experiencing right shoulder pain yesterday, X-rays of her right shoulder were taken yesterday afternoon per internal medicine, which showed no acute abnormalities. Patient states she is currently experiencing no pain in the right shoulder. She denies any new orthopedic complaints today. Objective - Vital Signs Vital signs: Vital Signs Temp 97.4 F L 04/25/19 07:40 Pulse 77 04/25/19 12:00 Resp 18 04/25/19 12:00 BP 146/82 04/25/19 07:40 Pulse Ox 95 04/25/19 07:40 Intake & Output 04/24/19 04/25/19 04/25/19 18:59 06:59 18:59 Intake Total 240 Balance 240 Intake: Oral 240 Other: Voiding Method Toilet Toilet Toilet # Voids 1 1 - Exam On examination, the patient is lying in bed in no apparent distress. She is alert and orientated 3. On inspection of the left upper extremity, there is diffuse swelling and ecchymosis of the left hand. No open wounds or lacerations. Wrist brace is in place. There is tenderness to palpation of the second and third metacarpal base. Radial pulse palpable, brisk capillary refill of all fingers and thumb. Motor and sensory function are intact. Patient does not have full active ROM of the fingers, secondary to swelling and pain. On inspection of the right knee, there is diffuse ecchymosis. There is no pain with PROM of the knee. Patient has full active ROM of the knee. The right lower extremity is warm and well perfused. Motor and sensory function are intact. On inspection of the right shoulder, there is no erythema, ecchymosis, swelling, or skin discoloration. No open wounds or lacerations. There is no tenderness to palpation of the scapula, clavicle, acromioclavicular joint, or proximal humerus. Mild tenderness to palpation of the proximal biceps tendon. There is no pain with PROM of the shoulder. Patient is able to achieve almost full forward flexion, abduction, and internal rotation of the shoulder. The right upper extremity is warm and well perfused. Motor and sensory function are intact. - Labs CBC & Chem 7: 04/25/19 05:56 04/25/19 05:56 Labs: Abnormal Lab Results - Last 24 Hours (Table) 04/24/19 04/24/19 04/25/19 Range/Units 17:01 20:22 05:56 MCV 75.9 L (80.0-100.0) fL MCH 22.9 L (25.0-35.0) pg MCHC 30.2 L (31.0-37.0) g/dL RDW 17.6 H (11.5-15.5) % Lymphocytes # (Manual) 0.57 L (1.0-4.8) k/uL BUN (7-17) mg/dL Creatinine (0.52-1.04) mg/dL Glucose (74-99) mg/dL POC Glucose (mg/dL) 105 H 124 H (75-99) mg/dL Total Bilirubin (0.2-1.3) mg/dL Alkaline Phosphatase (38-126) U/L 04/25/19 04/25/19 04/25/19 Range/Units 05:56 06:49 12:00 MCV (80.0-100.0) fL MCH (25.0-35.0) pg MCHC (31.0-37.0) g/dL RDW (11.5-15.5) % Lymphocytes # (Manual) (1.0-4.8) k/uL BUN 23 H (7-17) mg/dL Creatinine 1.71 H (0.52-1.04) mg/dL Glucose 106 H (74-99) mg/dL POC Glucose (mg/dL) 107 H 138 H (75-99) mg/dL Total Bilirubin 2.4 H (0.2-1.3) mg/dL Alkaline Phosphatase 135 H (38-126) U/L - Imaging and Cardiology CT scan left wrist 04/23/19: Acute minimally displaced intra-articular fracture of the second metacarpal base, acute nondisplaced fracture dorsal aspect of the third metacarpal base. No additional acute fracture of the scaphoid. Right shoulder x-ray 04/24/19: No acute fractures or dislocations. No acute bony abnormalities. Right knee x-ray 04/22/19: No acute fractures. Assessment and Plan Assessment: Minimally displaced intra-articular fracture of the second metacarpal base, left. Nondisplaced fracture of the third metacarpal base, left. Contusion right knee. Plan: - Clinical, x-ray, and CT scan findings discussed with the patient. - Nonsurgical treatment is recommended at this time. Recommend immobilization of the left wrist and hand with a removable wrist brace. She is to keep this brace in place at all times, except for providing hygiene. - Recommended rest, ice, elevation of the left hand and right knee for swelling and pain control. - Pain management per admitting team. - The patient should follow-up in our office as an outpatient 1 week following discharge for continued treatment. Patient discussed with Dr. Ratliff.
--- NOTE | 2019-04-25 13:04 | P.PN ---
Subjective This is a pleasant 73-year-old female past medical history significant for hypertrophic cardiomyopathy, diabetes mellitus, sick sinus syndrome status post permanent pacemaker implantation, TIA, hypertension, dyslipidemia and chronic persistent atrial fibrillation on long-term anticoagulation. She follows in the office with Dr. Ruby. We have been asked to see her in consultation secondary to syncope. Pt is seen and examined sitting up eating breakfast. She continues to feel light headed with exertion such as walking to the bathroom. No arrhythmias noted during her symptoms. Her breathing has improved since admission. She denies active chest pain, shortness of breath, palpitations, nausea or vomiting. Blood pressures stable. Repeat orthostatic vital signs are unremarkable. Device interrogation GENERAL: This is a 73-year-old female in no apparent distress at the time of my examination. HEENT: Head is atraumatic, normocephalic. Pupils are equal, round. Sclerae anicteric. Conjunctivae are clear. Mucous membranes of the mouth are moist. Neck is supple. There is mild jugular venous distention. No carotid bruit is heard. LUNGS: Clear to auscultation bilaterally, no rales, wheezes or rhonchi. No chest wall tenderness is noted on palpation or with deep breathing. HEART: Irregular rate and rhythm with systolic ejection murmur at the base, no rubs or gallops. S1 and S2 heard. EXTREMITIES: No evidence of peripheral edema and no calf tenderness noted. papular rash to b/l lower extremities. ASSESSMENT Acute on chronic diastolic failure with evidence of hepatic congestion and ascites Syncope, unknown cause at this point. No arrhythmias noted. Persistent atrial fibrillation on penitentiary anticoagulation with controlled ventricular response Hypertrophic cardiomyopathy Permanent pacemaker implantation Hypertension Dyslipidemia History of TIA PLAN Thus far there have been no arrhythmias noted to explain her syncope. There is a possibility this occurred at home secondary to her LVOT obstruction however with no arrhythmia this is less likely to be the cause. Ongoing medical management. Discontinue aldactone due to worsening renal function. Nurse Practitioner note has been reviewed, I agree with a documented findings and plan of care. Patient was seen and examined. Objective - Vital Signs Vital signs: Vital Signs Temp 97.5 F L 04/25/19 11:25 Pulse 77 04/25/19 12:00 Resp 18 04/25/19 12:00 BP 141/83 04/25/19 11:25 Pulse Ox 97 04/25/19 11:25 Intake & Output 04/24/19 04/25/19 04/25/19 18:59 06:59 18:59 Intake Total 240 Balance 240 Intake: Oral 240 Other: Voiding Method Toilet Toilet Toilet # Voids 1 1 - Labs CBC & Chem 7: 04/25/19 05:56 04/25/19 05:56 Labs: Abnormal Lab Results - Last 24 Hours (Table) 04/24/19 04/24/19 04/25/19 Range/Units 17:01 20:22 05:56 MCV 75.9 L (80.0-100.0) fL MCH 22.9 L (25.0-35.0) pg MCHC 30.2 L (31.0-37.0) g/dL RDW 17.6 H (11.5-15.5) % Lymphocytes # (Manual) 0.57 L (1.0-4.8) k/uL BUN (7-17) mg/dL Creatinine (0.52-1.04) mg/dL Glucose (74-99) mg/dL POC Glucose (mg/dL) 105 H 124 H (75-99) mg/dL Total Bilirubin (0.2-1.3) mg/dL Alkaline Phosphatase (38-126) U/L 04/25/19 04/25/19 04/25/19 Range/Units 05:56 06:49 12:00 MCV (80.0-100.0) fL MCH (25.0-35.0) pg MCHC (31.0-37.0) g/dL RDW (11.5-15.5) % Lymphocytes # (Manual) (1.0-4.8) k/uL BUN 23 H (7-17) mg/dL Creatinine 1.71 H (0.52-1.04) mg/dL Glucose 106 H (74-99) mg/dL POC Glucose (mg/dL) 107 H 138 H (75-99) mg/dL Total Bilirubin 2.4 H (0.2-1.3) mg/dL Alkaline Phosphatase 135 H (38-126) U/L
[2019-04-25 16:36] LABS: Glucose,Whole Blood 119 mg/dL (75-99)
[2019-04-25] MEDS: FUROSEMIDE 40 MG TAB PO SCH (16:56)
[2019-04-25] MEDS: ATORVASTATIN 20 MG TAB PO SCH (20:11)
[2019-04-25 20:35] LABS: Glucose,Whole Blood 127 mg/dL (75-99)
[2019-04-25 23:15] VITALS: RESP 18
[2019-04-26] MEDS: INSULIN ASPART (NovoLOG) 100 UNIT/ML VIAL SQ SCH ×2 (06:12→11:23)
[2019-04-26] MEDS: LEVOTHYROXINE 25 MCG TAB PO SCH (06:14)
[2019-04-26 06:43] LABS: Glucose,Whole Blood 100 mg/dL (75-99)
[2019-04-26 08:04] LABS: Anisocytosis Slight; Basophils % (A) 1 %; Eosinophils # (A) 0.2 k/uL (0-0.7); Eosinophils % (A) 4 %; HCT 36.2 % (34.0-46.0); HGB 11.3 gm/dL (11.4-16.0); Hypochromasia Moderate; Lymphocytes # (A) 0.9 k/uL (1.0-4.8); Lymphocytes % (A) 17 %; MCH 22.8 pg (25.0-35.0); MCHC 31.1 g/dL (31.0-37.0); MCV 73.2 fL (80.0-100.0); Mean Platelet Volume 8.3; Microcytosis Moderate; Monocytes # (A) 0.5 k/uL (0-1.0); Monocytes % (A) 9 %; Neutrophils # (A) 3.6 k/uL (1.3-7.7); Neutrophils % (A) 66 %; Platelet Count 265 k/uL (150-450); Poikilocytosis Slight; RBC 4.95 m/uL (3.80-5.40); RDW 18.1 % (11.5-15.5); WBC 5.5 k/uL (3.8-10.6)
[2019-04-26 08:19] LABS: Crenated RBC Present; RBC Fragments Present
[2019-04-26 08:20] LABS: Polychromasia Present
[2019-04-26 09:42] LABS: Calcium 9.1 mg/dL (8.4-10.2)
--- NOTE | 2019-04-26 11:05 | PN ---
PROGRESS NOTE A 73-year-old lady who is admitted to hospital with syncope, underwent extensive workup and everything has come back negative. Pacemaker is functioning normally. She has hypertrophic cardiomyopathy. On exam, she is comfortable at rest. Vital signs are stable. Chest exam reveals good air entry bilaterally. Heart exam reveals first and second heart sounds, grade 3 x 6 ejection systolic murmur in the aortic area. Abdomen is soft. Exam of the extremities did not reveal any edema. Peripheral pulses are felt. Labs show a hemoglobin of 11.3, creatinine is 1.4. Potassium is 4. ASSESSMENT: 1. Syncope. 2. Hypertrophic obstructive cardiomyopathy. PLAN: Patient is doing well. Has not had any symptoms since admission. She is stable for discharge and will be followed by Cardiology in the outpatient setting. MYRIAM / CINDY: [id number] /
[2019-04-26] MEDS: APIXABAN 5 MG TAB PO SCH (11:24)
[2019-04-26] MEDS: FUROSEMIDE 40 MG TAB PO SCH (11:24)
[2019-04-26] MEDS: FAMOTIDINE 20 MG TAB PO SCH (11:24)
[2019-04-26] MEDS: FERROUS SULFATE 325 MG TAB PO SCH (11:24)
[2019-04-26] MEDS: OXYBUTYNIN 10 MG TAB.ER.24 PO SCH (11:24)
[2019-04-26] MEDS: METOPROLOL TARTRATE 50 MG TAB PO SCH (11:24)
[2019-04-26] MEDS: ACETAMINOPHEN TAB 325 MG TAB PO PRN (11:25)
[2019-04-26 11:32] VITALS: BP 146/85; PULSE 75; TEMP 97.3
[2019-04-26 11:45] LABS: Glucose,Whole Blood 106 mg/dL (75-99)
--- NOTE | 2019-04-26 14:00 | P.DS ---
Providers Date of admission: 04/23/19 13:00 Expected date of discharge: 04/26/19 Attending physician: Kamaljit Krause Consults: 04/22/19 12:47 Consult Physician Routine Consulting Provider: Yayo Calvert Consult Reason/Comments: syncope Do you want consulting provider notified?: Yes Placement Type Exists?: Yes 04/22/19 14:16 Consult Physician Routine Consulting Provider: Brandi Morales Consult Reason/Comments: syncopal episode, CT of head result Do you want consulting provider notified?: Yes 04/22/19 17:00 Consult Physician Routine Consulting Provider: Alfred Wolf Consult Reason/Comments: sob Do you want consulting provider notified?: Yes 04/22/19 17:01 Consult Physician Routine Consulting Provider: Pierre Diaz Consult Reason/Comments: fracture Do you want consulting provider notified?: Yes Primary care physician: [facility] Course: Discharge Diagnosis 1. Syncopal episode with fall and collapse: Exact etiology unclear. Possibly related to the LVOT obstruction, normal pressure hydrocephalus, or vasovagal. Possibly could be related to the LVOT obstruction however there was no arrhythmias therefore this is less likely to be the cause of her syncope per cardiology. Also could possibly related to the normal pressure hydrocephalus. Patient seen by neurology during this admission. They're recommending that patient be evaluated by neurosurgeon for complete workup for normal pressure hydrocephalus. Orthostatics negative No evidence of cardiac arrhythmias. Computed tomography scan the brain showing no acute intracranial hemorrhage or midline shift. Did reveal diffuse age-related cerebral atrophy and chronic small vessel ischemic change noted. Carotid Doppler is negative for any significant hemodynamic stenosis. 2-D echo completed showing EF greater than 70%, moderate aortic stenosis and LVOT obstruction. Patient seen by both cardiology and neurology during this admission. Cleared for discharge 2. Minimally displaced intra-articular fracture of the second metacarpal base, left. And Nondisplaced fracture of the third metacarpal base, left. Patient seen by orthopedics. Patient has wrist brace. Continue Tylenol as needed for pain. Patient will need follow-up Dr. Ratliff in 1 week 3. History of hypertrophic cardiomyopathy 4. History of sick sinus syndrome with pacemaker placement 5. History of chronic persistent atrial fibrillation anticoagulated with Eliquis. Continue metoprolol for rate control 6. Hyperlipidemia continue statin 7. Hypothyroidism continue Synthroid 8. Diabetes mellitus type 2: A1c 6.1. 9. History of fibromyalgia 10. Prior history of iron deficiency anemia 11. Normal pressure hydrocephalus and differential noted on computed tomography scan of the brain. Patient seen evaluated by neurology. They are recommending neurosurgeon evaluation and workup in the outpatient setting. 12. Acute on chronic diastolic CHF exacerbation with evidence of hepatic congestion and ascites. Likely the cause of patient's shortness of breath. EF greater than 70 percent. Cardiology has switched patient from IV Lasix to oral Lasix. 13. Anemia likely related to iron deficiency anemia. Patient started ferrous sulfate 325 mg twice a day. Also could have a mild component of acute blood loss anemia who significant bruising in the hand and knee. Now improving. Hemoglobin is up to 11.6. Iron low at 24 and saturation low at 6.02 14. Acute kidney injury likely cardiorenal secondary to diuretics. Kidney function shown some improvement. Creatinine has decreased from 1.71-1.42 Hospital course This is a 73-year-old female with a known history of atrial fibrillation anticoagulated with Eliquis, hypertrophic obstructive cardiomyopathy, sick sinus syndrome with pacemaker, hyperlipidemia, hypothyroidism, diabetes mellitus type 2, fibromyalgia, iron deficiency anemia and skin cancer. She is a direct admit from Dr. Krause's office. Patient is admitted to the hospital for a syncopal episode. Yesterday patient was walking to her mailbox when she became dizzy. She turned around and try to get back to the house. However, she passed out landing on the ground. Patient feels that she may have passed out for a few seconds. When she came to she was aware of her surroundings. At that time she did injure her left hand and wrist as well as her right knee. Patient's helped her get back into the house. Patient reports having incontinence of stool upon standing and getting into the house. But she does report taking 4 stool softeners for constipation earlier that day. Denies any incontinence of urine. She's had syncopal episodes in the past. Patient denies any chest pain or heart palpitations. She does report some shortness of breath but nothing worse than usual. Denies any cough, fever, chills, sweats, nausea or vomiting, bowel movement changes or urinary symptoms. Patient is been admitted to the hospital for syncopal workup. Cardiology is been placed in consult, check computed tomography scan of the brain echo and carotid. She was placed on telemetry monitoring for any cardiac arrhythmias. X-rays of the injured areas including left hand and wrist and right knee have been ordered. 04/23/2019 patient lying in bed comfortably. She does reports some shortness of breath occasionally through the night. Chest x-ray showing some signs of CHF. She is currently on oral Lasix. Cardiology on consult. They've ordered a BNP. Awaiting 2-D echo results. Patient denies any chest pain. Denies any nausea or vomiting. Denies any bowel changes or urinary symptoms. Denies any dizziness or lightheadedness. Patient seen by neurology. X-rays reviewed. There is a acute transversely orientated non-comminuted, nondisplaced fracture proximal second metacarpal metaphysis of the left hand and a solid old questionable onset of the scaphoid. Orthopedics have been consulted. On 04/24/2019 patient's alert and oriented 3 resting comfortably in bed. Patient was started on Lasix IV every 12 hours. Patient reports she still having some shortness of breath. At this time patient denies chest pain. Patient denies nausea vomiting or diarrhea. Patient denies any urinary frequency. Computed tomography scan of the wrist has been ordered per orthopedic services. 04/25/2019 patient's reporting dizziness after using the bathroom today. She does not feel that she was on a pass out. She denies any chest pain. Denies any shortness of breath at the time. She feels that her shortness of breath is improving. Chest x-ray is showing improvement. Creatinine is up to 1.71. Cardiology is switched patient to oral Lasix 40 mg twice a day. They've also restarted her Eliquis. Patient is awaiting to be evaluated by GI service. She has wrist brace in place. She does report a mixture of loose and watery stool daily for the last 2 days. Prior to admission she had taken multiple stool softeners because of constipation. 04/26/2019 patient has had no further syncopal episodes. Denies any dizziness. Orthostatics were negative. There is no evidence of any cardiac arrhythmia. Exact cause of her syncopal episode is unclear. Possibly could be related to the LVOT obstruction however there was no arrhythmias therefore this is less likely to be the cause of her syncope per cardiology. Also could possibly related to the normal pressure hydrocephalus. Patient seen by neurology during this admission. They're recommending that patient be evaluated by neurosurgeon for complete workup for a normal HIDA pressure cephalo-list. Computed tomography scan of the head does not not diagnostic for NPH. Per neurology they would need to see a neurosurgeon for consideration of either a large-volume LP or a nuclear medicine CSF flow study. Patient was also treated for an acute CHF exacerbation during this admission. Was given IV Lasix. And is switched over to an increased dose of Lasix 40 mg twice a day. She had some acute kidney injury. And the Aldactone was discontinued and she was switched to oral Lasix. Creatinine at discharge improved at 1.42. Patient is medical stable for discharge. Please refer to chart for further details. Check CBC and BMP in 1 week I performed an examination of the patient and discussed their management with the physician Corporate Director Of Pharmacy. I have reviewed the Physician Corporate Director Of Pharmacy's notes and agree with the documented findings and plan of care Patient Condition at Discharge: Stable Plan - Discharge Summary Discharge Rx Participant: Yes New Discharge Prescriptions: New Ferrous Sulfate [Iron (65 MG Elemental)] 325 mg PO BID #60 tab Furosemide [Lasix] 40 mg PO BID@0900,1600 #60 tab Continue Atorvastatin [Lipitor] 20 mg PO HS Tolterodine Tartrate [Detrol LA] 4 mg PO DAILY Metoprolol Tartrate [Lopressor] 50 mg PO BID tab Apixaban [Eliquis] 5 mg PO BID 30 Days #60 tab Levothyroxine Sodium [Synthroid] 25 mcg PO DAILY Discontinued metFORMIN HCL [Glucophage] 500 mg PO BID Furosemide [Lasix] 20 mg PO BID Discharge Medication List Atorvastatin [Lipitor] 20 mg PO HS 08/24/16 [History] Tolterodine Tartrate [Detrol LA] 4 mg PO DAILY 10/14/18 [History] Apixaban [Eliquis] 5 mg PO BID 30 Days #60 tab 10/15/18 [Rx] Metoprolol Tartrate [Lopressor] 50 mg PO BID tab 10/15/18 [Rx] Levothyroxine Sodium [Synthroid] 25 mcg PO DAILY 04/22/19 [History] Ferrous Sulfate [Iron (65 MG Elemental)] 325 mg PO BID #60 tab 04/26/19 [Rx] Furosemide [Lasix] 40 mg PO BID@0900,1600 #60 tab 04/26/19 [Rx] Follow up Appointment(s)/Referral(s): Kamaljit Krause MD [Primary Care Provider] - 1 Week Lexi Ruby MD [STAFF PHYSICIAN] - 2 Weeks Sohan Ratliff MD [Medical Doctor] - 1 Week Jazmin De Jesus [NON-STAFF] - As Needed Activity/Diet/Wound Care/Special Instructions: Diet: cardiac, diabetic Activity: as tolerated Discharge Disposition: HOME SELF-CARE
== END 2019-04-26 15:45 | disposition home or self-care (01) | DRG 56 ==
LOC: 1SOBS 12:19 → OBSVTOIN 04-23 13:00 → 1SOBS 04-24 18:53
PROVIDERS: ADMIT Internal Medicine; ATTEND Internal Medicine
PROC: 4B02XSZ Measurement of Cardiac Pacemaker, External Approach (ICD-10-PCS; principal; 2019-04-24)
DX: G91.2 (Idiopathic) normal pressure hydrocephalus (principal); I50.33 Acute on chronic diastolic (congestive) heart failure; I42.1 Obstructive hypertrophic cardiomyopathy; I48.1 Persistent atrial fibrillation; N17.9 Acute kidney failure, unspecified; R18.8 Other ascites; D50.9 Iron deficiency anemia, unspecified; Z85.828 Personal history of other malignant neoplasm of skin; E03.9 Hypothyroidism, unspecified; E11.9 Type 2 diabetes mellitus without complications; E78.5 Hyperlipidemia, unspecified; I08.3 Combined rheumatic disorders of mitral, aortic and tricuspid valves; I27.20 Pulmonary hypertension, unspecified; I11.0 Hypertensive heart disease with heart failure; Z45.010 Encounter for checking and testing of cardiac pacemaker pulse generator [battery]; K76.1 Chronic passive congestion of liver; M19.90 Unspecified osteoarthritis, unspecified site; Z87.01 Personal history of pneumonia (recurrent); M79.7 Fibromyalgia; S62.343A Nondisplaced fracture of base of third metacarpal bone, left hand, initial encounter for closed fracture; S62.311A Displaced fracture of base of second metacarpal bone, left hand, initial encounter for closed fracture; S80.01XA Contusion of right knee, initial encounter; T50.2X5A Adverse effect of carbonic-anhydrase inhibitors, benzothiadiazides and other diuretics, initial encounter; W19.XXXA Unspecified fall, initial encounter; Y93.01 Activity, walking, marching and hiking; Z79.01 Long term (current) use of anticoagulants; Z79.84 Long term (current) use of oral hypoglycemic drugs; Z79.890 Hormone replacement therapy; Z79.899 Other long term (current) drug therapy; Z80.8 Family history of malignant neoplasm of other organs or systems; Z82.0 Family history of epilepsy and other diseases of the nervous system; Z86.73 Personal history of transient ischemic attack (TIA), and cerebral infarction without residual deficits; Z87.891 Personal history of nicotine dependence; Z90.710 Acquired absence of both cervix and uterus; Z91.81 History of falling; Z96.659 Presence of unspecified artificial knee joint; R32 Unspecified urinary incontinence; R15.9 Full incontinence of feces; K44.9 Diaphragmatic hernia without obstruction or gangrene; J84.10 Pulmonary fibrosis, unspecified; Z88.5 Allergy status to narcotic agent; Z88.8 Allergy status to other drugs, medicaments and biological substances; Z98.42 Cataract extraction status, left eye; Z98.41 Cataract extraction status, right eye; L85.3 Xerosis cutis
CPT/HCPCS: 70450; 71045; 71046; 74150; 80048; 80053; 82728; 83036; 83540; 83550; 83880; 84443; 84484; 85025; 93306; 93880

== ENCOUNTER → 2019-05-17 | Outpatient (CLI) | payer MEDICARE ==
[2019-05-17 18:42] LABS: African American GFR (CKD) 63.8 (60.0-200.0); Anion Gap 11.6 mmol/L (4.00-12.00); Carbon Dioxide 28.4 mmol/L (21.6-31.8); Potassium 3.6 mmol/L (3.5-5.5)
== END | disposition home or self-care (01) ==
LOC: LABWHC1 12:50
PROVIDERS: ATTEND Internal Medicine Cardiovascular Disease
DX: I50.9 Heart failure, unspecified (principal)
CPT/HCPCS: 36415; 80048

== ENCOUNTER → 2019-05-30 | Outpatient (CLI) | payer MEDICARE ==
[2019-05-30 16:47] LABS: Anisocytosis Slight; Basophils % (A) 1 %; Eosinophils # (A) 0.2 k/uL (0-0.7); Eosinophils % (A) 4 %; HCT 30.5 % (34.0-46.0); Hypochromasia Marked; Lymphocytes # (A) 0.5 k/uL (1.0-4.8); Lymphocytes % (A) 12 %; MCH 21.3 pg (25.0-35.0); MCHC 28.1 g/dL (31.0-37.0); MCV 75.8 fL (80.0-100.0); Mean Platelet Volume 6.4; Microcytosis Slight; Monocytes # (A) 0.4 k/uL (0-1.0); Monocytes % (A) 8 %; Neutrophils # (A) 3.3 k/uL (1.3-7.7); Neutrophils % (A) 73 %; Platelet Count 224 k/uL (150-450); Poikilocytosis Slight; RBC 4.02 m/uL (3.80-5.40); RDW 17.1 % (11.5-15.5); WBC 4.5 k/uL (3.8-10.6)
[2019-05-30 16:50] LABS: HGB 8.6 gm/dL (11.4-16.0)
[2019-05-31 01:58] LABS: African American GFR (CKD) 63.8 (60.0-200.0); Albumin/Globulin Ratio 1.74 (1.60-3.17); Anion Gap 14.5 mmol/L (4.00-12.00); Calcium 8.6 mg/dL (8.7-10.3); Carbon Dioxide 26.5 mmol/L (21.6-31.8); Chol/HDL Ratio 2.87; Globulin 2.3 g/dL (1.6-3.3); Potassium 3.4 mmol/L (3.5-5.5); Total Protein 6.3 g/dL (6.2-8.2)
== END | disposition home or self-care (01) ==
LOC: LABWHC1 15:38
PROVIDERS: ATTEND Internal Medicine
DX: E78.2 Mixed hyperlipidemia (principal); I10 Essential (primary) hypertension; E03.9 Hypothyroidism, unspecified; E11.65 Type 2 diabetes mellitus with hyperglycemia
CPT/HCPCS: 36415; 80053; 80061; 84443; 85025

== ENCOUNTER 2019-07-19 11:32 | Inpatient (IN) | payer MEDICARE ==
[2019-07-19 13:09] LABS: Anisocytosis Slight; Basophils % (A) 1 %; Eosinophils # (A) 0.2 k/uL (0-0.7); Eosinophils % (A) 4 %; HCT 31.8 % (34.0-46.0); HGB 9.1 gm/dL (11.4-16.0); Hypochromasia Marked; Lymphocytes # (A) 0.6 k/uL (1.0-4.8); Lymphocytes % (A) 13 %; MCH 20.1 pg (25.0-35.0); MCHC 28.7 g/dL (31.0-37.0); Microcytosis Marked; Monocytes # (A) 0.4 k/uL (0-1.0); Monocytes % (A) 9 %; Neutrophils # (A) 3.1 k/uL (1.3-7.7); Neutrophils % (A) 71 %; Platelet Count 250 k/uL (150-450); Poikilocytosis Slight; RBC 4.54 m/uL (3.80-5.40); RDW 16.5 % (11.5-15.5); WBC 4.3 k/uL (3.8-10.6)
[2019-07-19 13:11] LABS: Albumin 3.6 g/dL (3.5-5.0); Calcium 8.5 mg/dL (8.4-10.2); Potassium 3.8 mmol/L (3.5-5.1); Total Bilirubin 0.9 mg/dL (0.2-1.3); Total Protein 6.8 g/dL (6.3-8.2)
--- NOTE | 2019-07-19 13:17 | P.HPIM ---
History of Present Illness H&P Date: 07/19/19 Chief Complaint: Bilateral lower leg cellulites This is a 73-year-old female patient who presented as a direct admit from her PCP for bilateral lower leg cellulitis and edema. Patient reports that increase leg redness started approximately 5 days ago. Patient denies any fevers does report that right leg appears to be worse than left with increased weeping. Patient does have a past medical history of atrial fibrillation, CHF, CVA, diabetes mellitus, fibromyalgia, osteoarthritis, pneumonia, hiatal hernia, skin cancer. Patient does have increased redness and swelling noted to right leg will order venous Doppler to rule out DVT. Admission labs ordered. Patient is complaining of some cough and shortness of breath will order chest x-ray. BNP ordered. Blood culture and lactic acid ordered. Nephrology and infectious disease service is consulted. At this time patient denies chest pain. Patient denies any nausea vomiting or diarrhea. Patient denies any urinary burning or frequency. Review of Systems Please refer to HPI otherwise unremarkable Past Medical History Past Medical History: Cancer, CVA/TIA, Diabetes Mellitus, Fibromyalgia, Osteoarthritis (OA), Pneumonia, Skin Disorder Additional Past Medical History / Comment(s): hx hiatal hernia, diarrhea, leakage of urine/urgency, "dry skin", anemia, skin cancer History of Any Multi-Drug Resistant Organisms: None Reported Past Surgical History: Appendectomy, Cholecystectomy, Heart Catheterization, Hysterectomy, Joint Replacement, Orthopedic Surgery, Pacemaker, Tonsillectomy, Tubal Ligation Additional Past Surgical History / Comment(s): cyril heel spurs, left shoulder rotator cuff, bone biopsy, cyril cataracts Past Anesthesia/Blood Transfusion Reactions: Previous Problems w/ Anesthesia, Family History of Problems w/ Anesthesia, Postoperative Nausea & Vomiting (PONV) Additional Past Anesthesia/Blood Transfusion Reaction / Comment(s): "could not wake for several days after knee replacement". brother PONV. Type of Cardiac Device: Permanent Pacemaker Device Placement Date:: 04/2009 Smoking Status: Former smoker - Past Family History Father Family Medical History: Cancer Additional Family Medical History / Comment(s): skin Mother Family Medical History: Seizure Disorder Medications and Allergies Home Medications Medication Instructions Recorded Confirmed Type Atorvastatin [Lipitor] 20 mg PO HS 08/24/16 04/22/19 History Tolterodine Tartrate [Detrol LA] 4 mg PO DAILY 10/14/18 04/22/19 History Apixaban [Eliquis] 5 mg PO BID 30 Days #60 tab 10/15/18 04/22/19 Rx Metoprolol Tartrate [Lopressor] 50 mg PO BID tab 10/15/18 04/22/19 Rx Levothyroxine Sodium [Synthroid] 25 mcg PO DAILY 04/22/19 04/22/19 History Ferrous Sulfate [Iron (65 MG 325 mg PO BID #60 tab 04/26/19 Rx Elemental)] Furosemide [Lasix] 40 mg PO BID@0900,1600 #60 tab 04/26/19 Rx Allergies Allergy/AdvReac Type Severity Reaction Status Date / Time codeine Allergy Unknown Verified 04/22/19 12:49 hydrocodone bitartrate Allergy Nausea & Verified 04/22/19 12:49 [From Vicodin] Vomiting & Diarrhea prednisone Allergy brought on Verified 04/22/19 12:49 diabetes cortisone injections Allergy brought on Uncoded 10/14/18 01:53 diabetes sedatives Allergy "I could Uncoded 10/14/18 01:53 not wake up" steroids Allergy Hallucinati Uncoded 10/14/18 01:53 ons Physical Exam Vitals: Vital Signs Temp Pulse Resp BP Pulse Ox 07/19/19 12:05 97.4 F L 74 18 130/84 100 Head normocephalic Neck supple Lungs clear to auscultation bilaterally no wheezing or crackles Heart regular rate and rhythm S1-S2, no rub or gallop Abdomen is soft nontender nondistended positive bowel sounds no hepatosplenomegaly Extremities bilateral +3 lower extremity edema with erythema right greater than left. Blistery appearance to bilateral legs Neuro alert and orientated to 3 Assessment and Plan Assessment: 1. Bilateral lower external be cellulitis and edema. Patient started on Ancef for IV antibiotics. Blood cultures ordered. Infectious disease consulted. BNP ordered. Nephrology service is consulted. Venous Doppler ordered to rule out DVT 2. History of sick sinus syndrome with pacemaker placement 3. History of chronic persistent atrial fibrillation maintained on eliquis 4. History of hyperlipidemia continue statin 5. History of diabetes mellitus type 2. Sliding scale insulin ordered. Hemoglobin A1c has been ordered 6. History of fibromyalgia 7. History of iron deficiency anemia 8. History of normal pressure hydrocephalus previously seen on computed tomography scan during previous admission. She was followed with neurosurgeon in outpatient setting 9. Chronic diastolic congestive heart failure 10. History of Hypertrophic cardiomyopathy DVT prophylaxis eliquis. GI prophylaxis Pepcid Infectious disease and nephrology service is consulted Patient started on Ancef for antibiotic Venous Doppler ordered to rule out DVT BNP and chest x-ray ordered Time with Patient: Greater than 30 (Greater than 60% of the total time spent in counseling and coordination of care. I performed an examination of the patient and discussed their management with the Nurse Practitioner. I have reviewed the Nurse Practitioner's notes and agree with the documented findings and plan of care)
[2019-07-19 13:18] LABS: MCV 70.1 fL (80.0-100.0)
[2019-07-19] MEDS ORDERED: ACETAMINOPHEN TAB 325 MG TAB PO PRN (13:43)
--- NOTE | 2019-07-19 14:06 | US ---
EXAMINATION TYPE: US venous doppler duplex LE DATE OF EXAM: 07/19/2019 1:54 PM COMPARISON: NONE CLINICAL HISTORY: bilateral lower extremity edema, redness. h/o extensive bilaterally swelling, larg e body habitus SIDE PERFORMED: Bilateral TECHNIQUE: The lower extremity deep venous system is examined utilizing real time linear array sonog kieran with graded compression, doppler sonography and color-flow sonography. VESSELS IMAGED: External Iliac Vein (EIV) Common Femoral Vein Deep Femoral Vein Greater Saphenous Vein * Femoral Vein Popliteal Vein Small Saphenous Vein * Proximal Calf Veins (* superficial vessels) *extensive edema bilaterally, large body habitus, limits exam Right Leg: No appearance of thrombus within vessels seen, limited exam, extensive swelling and unabl e to turn probe behind knee Left Leg: No appearance of thrombus within vessels seen, limited exam, extensive swelling and unable to turn probe behind knee IMPRESSION: No evidence for DVT at this time.
[2019-07-19] MEDS: FUROSEMIDE 80 MG TAB PO SCH (15:48)
--- NOTE | 2019-07-19 15:50 | XR ---
EXAMINATION TYPE: XR chest 2V DATE OF EXAM: 07/19/2019 HISTORY: Shortness of breath. COMPARISON: 04/25/2019 TECHNIQUE: Single view of the chest is submitted. FINDINGS: Demonstrated are scattered senescent parenchymal change. Perihilar and basilar strandy opacities noted. Findings are felt to reflect atelectasis and/or parenc hymal scarring. The heart is stable. Hilar and mediastinal structures are within normal limits. Degenerative changes are seen of the dorsal spine. IMPRESSION: 1. Chronic changes without evidence for acute pulmonary disease.
[2019-07-19] MEDS ORDERED: traMADol 50 MG TAB PO PRN (16:00)
[2019-07-19 16:42] LABS: Glucose,Whole Blood 132 mg/dL (75-99)
[2019-07-19] MEDS: INSULIN ASPART (NovoLOG) 100 UNIT/ML VIAL SQ SCH ×2 (17:12→20:26)
--- NOTE | 2019-07-19 19:00 | ECHOF ---
Referral Reason:CHF MEASUREMENTS -------- HEIGHT: 147.3 cm WEIGHT: 91.6 kg BP: 106/68 RVIDd: 4.7 cm (< 3.3) IVSd: 1.4 cm (0.6 - 1.1) LVIDd: 3.2 cm (3.9 - 5.3) LVPWd: 1.6 cm (0.6 - 1.1) IVSs: 1.6 cm LVIDs: 1.5 cm LVPWs: 2.1 cm LAESV Index (A-L): 30.20 ml/m Ao Diam: 2.6 cm (2.0 - 3.7) AV Cusp: 1.1 cm (1.5 - 2.6) AV maxP.44 mmHg AV meanP.22 mmHg AR PHT: 534 ms RAP: 20.00 mmHg RVSP: 97.69 mmHg FINDINGS -------- Atrial fibrillation. This was a technically adequate study. The left ventricular size is normal. There is moderate concentric left ventricular hypertrophy. O verall left ventricular systolic function is normal with, an EF between 60 - 65 %. Moderate asymmet moises septal hypertrophy with septal thickness 1.6 - 1.9 cm. Left ventricular fillimg pressure cannot be estimated due to Atrial fibrillation. LVOT turbulence The right ventricle is moderately enlarged. LA is moderately dilated 34-39 ml/m2 The right atrium is moderately enlarged. Electronic pacemaker lead seen in the right atrial cavity. Interatrial and interventricular septum intact. There is mild aortic valve sclerosis. There is mild aortic regurgitation. There is no evidence of aortic stenosis. Suspect sub aortic stenosis, peak Pg 54.6 mmHg, mean PG 31mmHg Moderate mitral annular calcification present. [id number] mitral regurgitation is present. Severe tricuspid regurgitation present. There is severe pulmonary hypertension. The right ventric ular systolic pressure, as measured by Doppler, is 97.69mmHg. Trace/mild (physiologic) pulmonic regurgitation. The aortic root size is normal. The inferior vena cava is dilated with no significant inspiratory collapse which is consistent estima christopher right atrial pressure of >20 mmHg. There is no pericardial effusion. CONCLUSIONS -------- 1. Atrial fibrillation. 2. This was a technically adequate study. 3. The left ventricular size is normal. 4. There is moderate concentric left ventricular hypertrophy. 5. Moderate asymmetric septal hypertrophy with septal thickness 1.6 - 1.9 cm. 6. Left ventricular fillimg pressure cannot be estimated due to Atrial fibrillation. 7. The right ventricle is moderately enlarged. 8. LA is moderately dilated 34-39 ml/m2 9. The right atrium is moderately enlarged. 10. Electronic pacemaker lead seen in the right atrial cavity. 11. Interatrial and interventricular septum intact. 12. There is mild aortic valve sclerosis. 13. There is mild aortic regurgitation. 14. There is no evidence of aortic stenosis. 15. Suspect sub aortic stenosis, peak Pg 54.6 mmHg, mean PG 31 mmHg 16. Moderate mitral annular calcification present. 17. [id number] mitral regurgitation is present. 18. Severe tricuspid regurgitation present. 19. There is severe pulmonary hypertension. 20. The right ventricular systolic pressure, as measured by Doppler, is 97.69mmHg. 21. Trace/mild (physiologic) pulmonic regurgitation. 22. The aortic root size is normal. 23. The inferior vena cava is dilated with no significant inspiratory collapse which is consistent es timated right atrial pressure of >20 mmHg. 24. There is no pericardial effusion. REPAIRER ENGINE [employer]ODUCTION: Robina Joaquin RDCS
[2019-07-19] MEDS: ATORVASTATIN 20 MG TAB PO SCH (20:25)
[2019-07-19] MEDS: APIXABAN 5 MG TAB PO SCH (20:25)
[2019-07-19] MEDS: METOPROLOL TARTRATE 50 MG TAB PO SCH (20:25)
[2019-07-19 20:36] LABS: Glucose,Whole Blood 88 mg/dL (75-99)
[2019-07-19 21:25] LABS: Hemoglobin A1C 6.5 % (4.0-6.0)
[2019-07-20] MEDS: ONDANSETRON 4 MG/2 ML VIAL IVP PRN ×2 (02:19→08:21)
[2019-07-20] MEDS: LEVOTHYROXINE 25 MCG TAB PO SCH (06:24)
[2019-07-20 07:03] LABS: Glucose,Whole Blood 118 mg/dL (75-99)
[2019-07-20 07:58] LABS: Anisocytosis Slight; Basophils % (A) 0 %; Eosinophils # (A) 0.2 k/uL (0-0.7); Eosinophils % (A) 4 %; HCT 31.9 % (34.0-46.0); HGB 9.1 gm/dL (11.4-16.0); Hypochromasia Marked; Lymphocytes # (A) 0.8 k/uL (1.0-4.8); Lymphocytes % (A) 19 %; MCH 19.9 pg (25.0-35.0); MCHC 28.5 g/dL (31.0-37.0); MCV 69.6 fL (80.0-100.0); Mean Platelet Volume 6.4; Microcytosis Marked; Monocytes # (A) 0.3 k/uL (0-1.0); Monocytes % (A) 9 %; Neutrophils # (A) 2.6 k/uL (1.3-7.7); Neutrophils % (A) 65 %; Platelet Count 256 k/uL (150-450); Poikilocytosis Slight; RBC 4.58 m/uL (3.80-5.40); RDW 16.3 % (11.5-15.5); WBC 3.9 k/uL (3.8-10.6)
[2019-07-20 08:10] LABS: Albumin 3.4 g/dL (3.5-5.0); Calcium 8.7 mg/dL (8.4-10.2); Potassium 3.6 mmol/L (3.5-5.1); Total Bilirubin 0.8 mg/dL (0.2-1.3); Total Protein 6.5 g/dL (6.3-8.2)
--- NOTE | 2019-07-20 08:10 | P.CONS ---
History of Present Illness - Reason for Consult Consult date: 07/19/19 Lower extremity cellulitis Requesting physician: Kamaljit Krause - Chief Complaint Swelling and redness to the leg 5 days - History of Present Illness Patient is 73-year-old female with a past medical history significant for atrial fibrillation patient seemed to have problem with chronic swelling in lower extremity however the last 5 days patient noticed to have more swelling in her legs especially in the right leg which seemed to be swollen and red more compared to the left leg patient has a history of any trauma, the patient be complaining of some dull aching pain especially the right leg the dentist about 5-10 and no radiation currently no open wound or any blisters or any drainage patient did have some chills but denies high-grade fever patient has been diagnosed with bilateral lower extremity cellulitis the patient did have worsening of that has been negative for DVT, patient was started on cefazolin 1 g every 8 hours infection. Infectious disease consulted for further recommendation and her antibiotic therapy Review of Systems Positive point has been mentioned in the HPI rest of the systems are negative Past Medical History Past Medical History: Cancer, CVA/TIA, Diabetes Mellitus, Fibromyalgia, Osteoarthritis (OA), Pneumonia, Skin Disorder Additional Past Medical History / Comment(s): hx hiatal hernia, diarrhea, leakage of urine/urgency, "dry skin", anemia, skin cancer History of Any Multi-Drug Resistant Organisms: None Reported Past Surgical History: Appendectomy, Cholecystectomy, Heart Catheterization, Hysterectomy, Joint Replacement, Orthopedic Surgery, Pacemaker, Tonsillectomy, Tubal Ligation Additional Past Surgical History / Comment(s): cyril heel spurs, left shoulder rotator cuff, bone biopsy, cyril cataracts Past Anesthesia/Blood Transfusion Reactions: Previous Problems w/ Anesthesia, Family History of Problems w/ Anesthesia, Postoperative Nausea & Vomiting (PONV) Additional Past Anesthesia/Blood Transfusion Reaction / Comm: "could not wake for several days after knee replacement". brother PONV. Type of Cardiac Device: Permanent Pacemaker Device Placement Date:: 04/2009 Smoking Status: Former smoker - Past Family History Father Family Medical History: Cancer Additional Family Medical History / Comment(s): skin Mother Family Medical History: Seizure Disorder Medications and Allergies Home Medications Medication Instructions Recorded Confirmed Type Atorvastatin [Lipitor] 20 mg PO HS 08/24/16 07/19/19 History Tolterodine Tartrate [Detrol LA] 4 mg PO DAILY 10/14/18 07/19/19 History Apixaban [Eliquis] 5 mg PO BID 30 Days #60 tab 10/15/18 07/19/19 Rx Metoprolol Tartrate [Lopressor] 50 mg PO BID tab 10/15/18 07/19/19 Rx Levothyroxine Sodium [Synthroid] 25 mcg PO DAILY 04/22/19 07/19/19 History Acetaminophen Tab [Tylenol Tab] 650 mg PO Q6H PRN 07/19/19 07/19/19 History Ferrous Sulfate [Iron (65 MG 325 mg PO DAILY 07/19/19 07/19/19 History Elemental)] Furosemide [Lasix] 80 mg PO BID 07/19/19 07/19/19 History Potassium Chloride 8 meq PO DAILY 07/19/19 07/19/19 History Vitamin E 100 unit PO DAILY 07/19/19 07/19/19 History traMADol HCL 50 mg PO TID 07/19/19 07/19/19 History Allergies Allergy/AdvReac Type Severity Reaction Status Date / Time codeine Allergy Unknown Verified 07/19/19 13:31 latex Allergy Rash/Hives Verified 07/19/19 13:31 hydrocodone bitartrate AdvReac Nausea & Verified 07/19/19 13:31 [From Vicodin] Vomiting & Diarrhea prednisone AdvReac brought on Verified 07/19/19 13:31 diabetes cortisone injections AdvReac brought on Uncoded 07/19/19 13:31 diabetes sedatives AdvReac "I could Uncoded 07/19/19 13:31 not wake up" steroids AdvReac Hallucinati Uncoded 07/19/19 13:31 ons Physical Exam Vitals: Vital Signs Temp Pulse Resp BP Pulse Ox 07/19/19 15:00 81 16 106/68 100 07/19/19 12:05 97.4 F L 74 18 130/84 100 Intake and Output 07/19/19 07/19/19 07/19/19 06:59 14:59 22:59 Other: Voiding Method Toilet # Voids 2 Weight 91.767 kg GENERAL DESCRIPTION: An elderly female lying in bed, no distress. No tachypnea or accessory muscle of respiration use. HEENT: Shows Pallor , no scleral icterus. Oral mucous membrane is dry. No pharyngeal erythema or thrush NECK: Trachea central, no thyromegaly. LUNGS: Unlabored breathing. Clear to auscultation anteriorly. No wheeze or crackle. HEART: S1, S2, regular rate and rhythm. No loud murmur ABDOMEN: Soft, no tenderness , guarding or rigidity, no organomegaly EXTREMITIES: Bilateral lower extremity swelling right greater than the left she has more redness on the right leg slightly warm to touch no open wound or any blister no drainage. SKIN: No rash, no masses palpable. NEUROLOGICAL: The patient is awake, alert, oriented x3, mood and affect normal. Results CBC & Chem 7: 07/20/19 07:16 07/19/19 12:43 Labs: Abnormal Lab Results - Last 24 Hours (Table) 07/19/19 07/19/19 07/19/19 Range/Units 12:43 12:43 16:39 Hgb 9.1 L (11.4-16.0) gm/dL Hct 31.8 L (34.0-46.0) % MCV 70.1 L D (80.0-100.0) fL MCH 20.1 L (25.0-35.0) pg MCHC 28.7 L (31.0-37.0) g/dL RDW 16.5 H (11.5-15.5) % Lymphocytes # 0.6 L (1.0-4.8) k/uL Creatinine 1.07 H (0.52-1.04) mg/dL Glucose 128 H (74-99) mg/dL POC Glucose (mg/dL) 132 H (75-99) mg/dL Alkaline Phosphatase 167 H (38-126) U/L Assessment and Plan Assessment: 1-patient with bilateral lower eczema cellulitis right greater than left in this patient who did have diffuse swelling and redness likely representing a stre ptococcal disease clinical suspicion of underlying MRSA or gram-negative infection (1) Bilateral lower leg cellulitis Current Visit: Yes Status: Acute Code(s): L03.116 - CELLULITIS OF LEFT LOWER LIMB; L03.115 - CELLULITIS OF RIGHT LOWER LIMB SNOMED Code(s): 451956864 Plan: 1-we will increase her dose of cefazolin 2 g every 8 hours 2-archie the area of the redness right leg 3- Zenon wrap to both legs from just above the toe to below the knee We will follow on clinical condition and cultures to further adjust medication if needed Thank you for this consultation will follow this patient with you
[2019-07-20] MEDS: POTASSIUM CHLORIDE ER 10 MEQ TAB.ER.PRT PO SCH (08:21)
[2019-07-20] MEDS: FERROUS SULFATE 325 MG TAB PO SCH (08:21)
[2019-07-20] MEDS: METOPROLOL TARTRATE 50 MG TAB PO SCH ×2 (08:21→21:06)
[2019-07-20] MEDS: FAMOTIDINE 20 MG TAB PO SCH (08:21)
[2019-07-20] MEDS: APIXABAN 5 MG TAB PO SCH ×2 (08:21→21:06)
[2019-07-20] MEDS: VITAMIN E (DL,TOCOPHERYL ACET) 400 UNIT CAP PO SCH (08:21)
[2019-07-20] MEDS: OXYBUTYNIN XL 5 MG TAB.ER.24 PO SCH (08:21)
[2019-07-20] MEDS: FUROSEMIDE 80 MG TAB PO SCH (08:21)
[2019-07-20] MEDS: INSULIN ASPART (NovoLOG) 100 UNIT/ML VIAL SQ SCH ×4 (08:22→21:07)
--- NOTE | 2019-07-20 09:39 | P.NPCON ---
History of Present Illness - Reason for Consult acute renal failure - History of Present Illness Reason for consultation: Acute kidney injury History of present illness: Patient is a 73-year-old female seen in renal consultation for acute kidney injury. Patient baseline creatinine is 1 and was 1.07 on admission. It is 1.24 today. Patient presented to the hospital due to worsening edema in her lower e xtremities. She denies chest pain but does admit to shortness of breath even with minimal exertion. Admits to good urine output. No hematuria or dysuria. No fever or chills. Patient states she used to be a diabetic but not now. Denies use of nonsteroidals. Hemodynamically stable. Patient has diastolic CHF with mild to moderate mitral regurgitation, severe tricuspid regurgitation and severe pulmonary hypertension. Patient states she has been taking Lasix 80 mg orally twice daily at home with no significant improvement in her edema. She is also on IV antibiotics for cellulitis. Denies family history of renal disease. Chest x-ray was not suggestive of fluid overload. Vital signs are stable. General: The patient appeared well nourished and normally developed. HEENT: Head exam is unremarkable. Neck is without jugular venous distension. LUNGS: Lungs are clear to auscultation and percussion. Breath sounds decreased. HEART: Rate and Rhythm are regular. First and second heart sounds normal. No murmurs, rubs or gallops. ABDOMEN: Abdominal exam reveals normal bowel sounds. Non-tender and non- distended. No evidence of peritonitis. EXTREMITITES: 2+ edema. Chronic changes noted. Past Medical History Past Medical History: Cancer, CVA/TIA, Diabetes Mellitus, Fibromyalgia, Osteoarthritis (OA), Pneumonia, Skin Disorder Additional Past Medical History / Comment(s): hx hiatal hernia, diarrhea, leakage of urine/urgency, "dry skin", anemia, skin cancer History of Any Multi-Drug Resistant Organisms: None Reported Past Surgical History: Appendectomy, Cholecystectomy, Heart Catheterization, Hysterectomy, Joint Replacement, Orthopedic Surgery, Pacemaker, Tonsillectomy, Tubal Ligation Additional Past Surgical History / Comment(s): cyril heel spurs, left shoulder rotator cuff, bone biopsy, cyril cataracts Past Anesthesia/Blood Transfusion Reactions: Previous Problems w/ Anesthesia, Family History of Problems w/ Anesthesia, Postoperative Nausea & Vomiting (PONV) Additional Past Anesthesia/Blood Transfusion Reaction / Comment(s): "could not wake for several days after knee replacement". brother MELO. Type of Cardiac Device: Permanent Pacemaker Device Placement Date:: 04/2009 Smoking Status: Former smoker - Past Family History Father Family Medical History: Cancer Additional Family Medical History / Comment(s): skin Mother Family Medical History: Seizure Disorder Medications and Allergies Home Medications Medication Instructions Recorded Confirmed Type Atorvastatin [Lipitor] 20 mg PO HS 08/24/16 07/19/19 History Tolterodine Tartrate [Detrol LA] 4 mg PO DAILY 10/14/18 07/19/19 History Apixaban [Eliquis] 5 mg PO BID 30 Days #60 tab 10/15/18 07/19/19 Rx Metoprolol Tartrate [Lopressor] 50 mg PO BID tab 10/15/18 07/19/19 Rx Levothyroxine Sodium [Synthroid] 25 mcg PO DAILY 04/22/19 07/19/19 History Acetaminophen Tab [Tylenol Tab] 650 mg PO Q6H PRN 07/19/19 07/19/19 History Ferrous Sulfate [Iron (65 MG 325 mg PO DAILY 07/19/19 07/19/19 History Elemental)] Furosemide [Lasix] 80 mg PO BID 07/19/19 07/19/19 History Potassium Chloride 8 meq PO DAILY 07/19/19 07/19/19 History Vitamin E 100 unit PO DAILY 07/19/19 07/19/19 History traMADol HCL 50 mg PO TID 07/19/19 07/19/19 History Allergies Allergy/AdvReac Type Severity Reaction Status Date / Time codeine Allergy Unknown Verified 07/19/19 13:31 latex Allergy Rash/Hives Verified 07/19/19 13:31 hydrocodone bitartrate AdvReac Nausea & Verified 07/19/19 13:31 [From Vicodin] Vomiting & Diarrhea prednisone AdvReac brought on Verified 07/19/19 13:31 diabetes cortisone injections AdvReac brought on Uncoded 07/19/19 13:31 diabetes sedatives AdvReac "I could Uncoded 07/19/19 13:31 not wake up" steroids AdvReac Hallucinati Uncoded 07/19/19 13:31 ons Physical Exam Vitals: Vital Signs Temp Pulse Pulse Resp BP BP Pulse Ox 07/20/19 04:07 97.4 F L 82 16 103/63 95 07/19/19 20:31 97.7 F 76 16 135/83 99 07/19/19 15:00 81 16 106/68 100 07/19/19 12:05 97.4 F L 74 18 130/84 100 Intake and Output 07/19/19 07/20/19 07/20/19 22:59 06:59 14:59 Intake Total 300 Balance 300 Intake: Oral 300 Other: Voiding Method Toilet # Voids 3 5 Weight 91.767 kg Results - Lab Results Most recent lab results Calcium 8.7 mg/dL (8.4-10.2) 07/20/19 07:16 07/20/19 07:16 07/20/19 07:16 Assessment and Plan Plan: Assessment: 1. Acute kidney injury mostly prerenal secondary to cardiorenal syndrome. Creatinine 1.24 today. 2. Lower extremity edema. 3. Lower extremity cellulitis maintained on antibiotics. 4. Acute on chronic diastolic CHF with severe tricuspid regurgitation and severe pulmonary hypertension. Plan: I will change Lasix to 80 mg IV twice daily for 24 hours. Low-salt diet. Check urinalysis. Repeat electrolytes in the morning. Thank you for the consultation. I will continue to follow the patient with you during her hospital stay.
[2019-07-20] MEDS: FUROSEMIDE 10 MG/ML 10 ML VIAL IV SCH ×2 (10:31→21:06)
[2019-07-20 11:58] LABS: Glucose,Whole Blood 138 mg/dL (75-99)
--- NOTE | 2019-07-20 12:56 | P.PN ---
Subjective Progress Note Date: 07/20/19 This is a 73-year-old female patient who presented as a direct admit from her PCP for bilateral lower leg cellulitis and edema. Patient reports that increase leg redness started approximately 5 days ago. Patient denies any fevers does report that right leg appears to be worse than left with increased weeping. Patient does have a past medical history of atrial fibrillation, CHF, CVA, diabetes mellitus, fibromyalgia, osteoarthritis, pneumonia, hiatal hernia, skin cancer. Patient does have increased redness and swelling noted to right leg will order venous Doppler to rule out DVT. Admission labs ordered. Patient is complaining of some cough and shortness of breath will order chest x-ray. BNP ordered. Blood culture and lactic acid ordered. Nephrology and infectious disease service is consulted. At this time patient denies chest pain. Patient denies any nausea vomiting or diarrhea. Patient denies any urinary burning or frequency. On 07/20/2019 patient was seen and examined on the medical floor she is alert and oriented 3 in no apparent distress she is complaining of nausea today otherwise she denies any complaints she still has severe bilateral lower extremity edema extending from the groin all the way down to the feet, this is likely related to acute on chronic diastolic congestive heart failure and 2 severe pulmonary hypertension, patient states that she was admitted to the hospital in March that time she lost about 30 pounds however she regained all that weight since her discharge, there is significant erythema and signs of cellulitis in the bilateral thigh area. Objective - Vital Signs Vital signs: Vital Signs Temp 97.4 F L 07/20/19 04:07 Pulse 82 07/20/19 04:07 Resp 16 07/20/19 04:07 BP 103/63 07/20/19 04:07 Pulse Ox 95 07/20/19 04:07 Intake & Output 07/19/19 07/20/19 07/20/19 18:59 06:59 18:59 Intake Total 300 Balance 300 Weight 91.767 kg Intake: Oral 300 Other: Voiding Method Toilet Toilet # Voids 2 5 - Exam In general patient is alert and oriented 3 in no apparent distress HEENT head normocephalic and atraumatic Neck is supple no JVD no goiter no lymphadenopathy Chest exam reveals a few scattered rhonchi bilaterally no wheezing Cardiac exam reveals regular heart sounds S1 and S2 no gallops no murmurs Abdomen is soft nontender no organomegaly with normal bowel sounds Extremity severe 3+ bilateral edema extending from the groin all the way down to the feet with erythema in bilateral thigh areas Neurological examination reveals no gross focal deficit - Labs CBC & Chem 7: 07/20/19 07:16 07/20/19 07:16 Labs: Abnormal Lab Results - Last 24 Hours (Table) 07/19/19 07/19/19 07/19/19 Range/Units 12:43 12:43 12:43 Hgb 9.1 L (11.4-16.0) gm/dL Hct 31.8 L (34.0-46.0) % MCV 70.1 L D (80.0-100.0) fL MCH 20.1 L (25.0-35.0) pg MCHC 28.7 L (31.0-37.0) g/dL RDW 16.5 H (11.5-15.5) % Lymphocytes # 0.6 L (1.0-4.8) k/uL Creatinine 1.07 H (0.52-1.04) mg/dL Glucose 128 H (74-99) mg/dL POC Glucose (mg/dL) (75-99) mg/dL Hemoglobin A1c 6.5 H (4.0-6.0) % Alkaline Phosphatase 167 H (38-126) U/L Albumin (3.5-5.0) g/dL 07/19/19 07/20/19 07/20/19 Range/Units 16:39 07:01 07:16 Hgb 9.1 L (11.4-16.0) gm/dL Hct 31.9 L (34.0-46.0) % MCV 69.6 L (80.0-100.0) fL MCH 19.9 L (25.0-35.0) pg MCHC 28.5 L (31.0-37.0) g/dL RDW 16.3 H (11.5-15.5) % Lymphocytes # 0.8 L (1.0-4.8) k/uL Creatinine (0.52-1.04) mg/dL Glucose (74-99) mg/dL POC Glucose (mg/dL) 132 H 118 H (75-99) mg/dL Hemoglobin A1c (4.0-6.0) % Alkaline Phosphatase (38-126) U/L Albumin (3.5-5.0) g/dL 07/20/19 07/20/19 Range/Units 07:16 11:53 Hgb (11.4-16.0) gm/dL Hct (34.0-46.0) % MCV (80.0-100.0) fL MCH (25.0-35.0) pg MCHC (31.0-37.0) g/dL RDW (11.5-15.5) % Lymphocytes # (1.0-4.8) k/uL Creatinine 1.24 H (0.52-1.04) mg/dL Glucose 107 H (74-99) mg/dL POC Glucose (mg/dL) 138 H (75-99) mg/dL Hemoglobin A1c (4.0-6.0) % Alkaline Phosphatase 159 H (38-126) U/L Albumin 3.4 L (3.5-5.0) g/dL Assessment and Plan Plan: 1. Bilateral lower external be cellulitis and edema. Patient started on Ancef for IV antibiotics. Blood cultures ordered. Infectious disease consulted. BNP ordered. Nephrology service is consulted. Venous Doppler ordered to rule out DVT 2. History of sick sinus syndrome with pacemaker placement 3. History of chronic persistent atrial fibrillation maintained on eliquis 4. History of hyperlipidemia continue statin 5. History of diabetes mellitus type 2. Sliding scale insulin ordered. Hemoglobin A1c has been ordered 6. History of fibromyalgia 7. History of iron deficiency anemia 8. History of normal pressure hydrocephalus previously seen on computed tomography scan during previous admission. She was followed with neurosurgeon in outpatient setting 9. Acute on Chronic diastolic congestive heart failure, with severe pulmonary hypertension, patient states that she lost 30 pounds during her admission in March but she has regained all that weight since her discharge, she is currently maintained on IV Lasix 10. History of Hypertrophic cardiomyopathy DVT prophylaxis eliquis. GI prophylaxis Pepcid Infectious disease and nephrology service is consulted Patient started on Ancef for antibiotic Venous Doppler ordered to rule out DVT BNP and chest x-ray ordered
--- NOTE | 2019-07-20 13:15 | P.CRDCN ---
History of Present Illness Consult date: 07/20/19 Requesting physician: Kamaljit Krause Reason for Consult (text): CHF worsening edema Chief complaint: worsening lower extremity edema, weight gain History of present illness: This is a pleasant 73-year-old female patient who follows with Dr. Ruby in the office. She has a known history of hypertrophic obstructive cardiomyopathy, chronic diastolic congestive heart failure, anemia, permanent pacemaker, normal pressure hydrocephalus, severe pulmonary hypertension and severe tricuspid regurgitation, chronic atrial fibrillation for which she is on Eliquis. She was last seen in the office a few weeks ago by Dr. Ruby. Presented as a direct admission from her primary care physician's office due to complaints of worsening edema, erythema, weight gain and slight worsening of shortness of breath. She does complain of some shortness of breath at baseline but has been more noticeable recently. Venous duplex showed no evidence of DVT. Chest x-ray showed chronic changes without any acute process. Echocardiogram with Doppler showed normal LV systolic function with ejection fraction between 60-65%, moderate asymmetric septal hypertrophy, LVOT turbulence, mild aortic regurgitation, suspected subaortic stenosis, moderate mitral annular calcification with mild to moderate MR, severe TR and severe pulmonary hypertension with an RVSP of 97 mmHg. This is similar findings to the echocardiogram done in the office in August of this year. Labs showed a hemoglobin of 9.1 with hemoglobin of 8.6 about 6 weeks ago. BUN 14, creatinine 1.24, NT proBNP came back to be elevated at 2200 which is actually down from reading in March of this year of 4990. She is currently on Eliquis 5 mg by mouth twice a day, atorvastatin 20 mg by mouth daily, metoprolol 50 mg by mouth twice a day and Lasix 80 mg IV push every 12 hours as ordered by nephrology. Past Medical History Past Medical History: Cancer, CVA/TIA, Diabetes Mellitus, Fibromyalgia, Osteoarthritis (OA), Pneumonia, Skin Disorder Additional Past Medical History / Comment(s): hx hiatal hernia, diarrhea, leakage of urine/urgency, "dry skin", anemia, skin cancer History of Any Multi-Drug Resistant Organisms: None Reported Past Surgical History: Appendectomy, Cholecystectomy, Heart Catheterization, Hysterectomy, Joint Replacement, Orthopedic Surgery, Pacemaker, Tonsillectomy, Tubal Ligation Additional Past Surgical History / Comment(s): cyril heel spurs, left shoulder rotator cuff, bone biopsy, cyril cataracts Past Anesthesia/Blood Transfusion Reactions: Previous Problems w/ Anesthesia, Family History of Problems w/ Anesthesia, Postoperative Nausea & Vomiting (PONV) Additional Past Anesthesia/Blood Transfusion Reaction / Comment(s): "could not wake for several days after knee replacement". brother PONV. Type of Cardiac Device: Permanent Pacemaker Device Placement Date:: 04/2009 Smoking Status: Former smoker - Past Family History Father Family Medical History: Cancer Additional Family Medical History / Comment(s): skin Mother Family Medical History: Seizure Disorder Medications and Allergies Home Medications Medication Instructions Recorded Confirmed Type Atorvastatin [Lipitor] 20 mg PO HS 08/24/16 07/19/19 History Tolterodine Tartrate [Detrol LA] 4 mg PO DAILY 10/14/18 07/19/19 History Apixaban [Eliquis] 5 mg PO BID 30 Days #60 tab 10/15/18 07/19/19 Rx Metoprolol Tartrate [Lopressor] 50 mg PO BID tab 10/15/18 07/19/19 Rx Levothyroxine Sodium [Synthroid] 25 mcg PO DAILY 04/22/19 07/19/19 History Acetaminophen Tab [Tylenol Tab] 650 mg PO Q6H PRN 07/19/19 07/19/19 History Ferrous Sulfate [Iron (65 MG 325 mg PO DAILY 07/19/19 07/19/19 History Elemental)] Furosemide [Lasix] 80 mg PO BID 07/19/19 07/19/19 History Potassium Chloride 8 meq PO DAILY 07/19/19 07/19/19 History Vitamin E 100 unit PO DAILY 07/19/19 07/19/19 History traMADol HCL 50 mg PO TID 07/19/19 07/19/19 History Allergies Allergy/AdvReac Type Severity Reaction Status Date / Time codeine Allergy Unknown Verified 07/19/19 13:31 latex Allergy Rash/Hives Verified 07/19/19 13:31 hydrocodone bitartrate AdvReac Nausea & Verified 07/19/19 13:31 [From Vicodin] Vomiting & Diarrhea prednisone AdvReac brought on Verified 07/19/19 13:31 diabetes cortisone injections AdvReac brought on Uncoded 07/19/19 13:31 diabetes sedatives AdvReac "I could Uncoded 07/19/19 13:31 not wake up" steroids AdvReac Hallucinati Uncoded 07/19/19 13:31 ons Physical Exam Vitals: Vital Signs Temp Pulse Pulse Resp BP BP Pulse Ox 07/20/19 04:07 97.4 F L 82 16 103/63 95 07/19/19 20:31 97.7 F 76 16 135/83 99 07/19/19 15:00 81 16 106/68 100 Intake and Output 07/19/19 07/20/19 07/20/19 22:59 06:59 14:59 Intake Total 300 Balance 300 Intake: Oral 300 Other: Voiding Method Toilet # Voids 3 5 Weight 91.767 kg PHYSICAL EXAMINATION: HEENT: Head is atraumatic, normocephalic. Pupils equal, round. Neck is supple. There is no elevated jugular venous pressure. HEART EXAMINATION: Heart sounds irregularly irregular, S1 and S2 with a systolic murmur. CHEST EXAMINATION: Lungs reveal diminished air entry bilaterally. No chest wall tenderness is noted on palpation or with deep breathing. ABDOMEN: Soft, nontender. Bowel sounds are heard. No organomegaly noted. EXTREMITIES: 2+ peripheral pulses with evidence of moderate peripheral edema and chronic skin changes consistent with chronic venous stasis. NEUROLOGIC patient is awake, alert and oriented 3. . Results 07/20/19 07:16 07/20/19 07:16 Cardiac Enzymes 07/19/19 07/20/19 Range/Units 12:43 07:16 AST 24 21 (14-36) U/L CBC 07/19/19 07/20/19 Range/Units 12:43 07:16 WBC 4.3 3.9 (3.8-10.6) k/uL RBC 4.54 4.58 (3.80-5.40) m/uL Hgb 9.1 L 9.1 L (11.4-16.0) gm/dL Hct 31.8 L 31.9 L (34.0-46.0) % Plt Count 250 256 (150-450) k/uL Comprehensive Metabolic Panel 07/19/19 07/20/19 Range/Units 12:43 07:16 Sodium 140 141 (137-145) mmol/L Potassium 3.8 3.6 (3.5-5.1) mmol/L Chloride 102 101 (98-107) mmol/L Carbon Dioxide 28 30 (22-30) mmol/L BUN 13 14 (7-17) mg/dL Creatinine 1.07 H 1.24 H (0.52-1.04) mg/dL Glucose 128 H 107 H (74-99) mg/dL Calcium 8.5 8.7 (8.4-10.2) mg/dL AST 24 21 (14-36) U/L ALT 24 17 (9-52) U/L Alkaline Phosphatase 167 H 159 H (38-126) U/L Total Protein 6.8 6.5 (6.3-8.2) g/dL Albumin 3.6 3.4 L (3.5-5.0) g/dL Current Medications Generic Name Dose Route Start Last Admin Trade Name Freq PRN Reason Stop Dose Admin Acetaminophen 650 mg 07/19/19 13:43 Tylenol Tab PO Q6H PRN Pain Apixaban 5 mg 07/19/19 21:00 07/20/19 08:21 Eliquis PO 5 mg BID LOLY Administration Atorvastatin Calcium 20 mg 07/19/19 21:00 07/19/19 20:25 Lipitor PO 20 mg HS LOLY Administration Famotidine 20 mg 07/20/19 09:00 07/20/19 08:21 Pepcid PO 20 mg DAILY LOLY Administration Ferrous Sulfate 325 mg 07/20/19 09:00 07/20/19 08:21 Feosol PO 325 mg DAILY LOLY Administration Furosemide 80 mg 07/20/19 09:45 07/20/19 10:31 Lasix IV 80 mg Q12HR LOLY Administration Cefazolin Sodium 2,000 mg/ 50 mls @ 100 mls/hr 07/20/19 00:00 07/20/19 08:21 Sodium Chloride IVPB 100 mls/hr Q8HR [facility] Administration Insulin Aspart 0 unit 07/19/19 17:30 07/20/19 13:01 Novolog SQ 1 unit ACHS LOLY Administration Protocol Levothyroxine Sodium 25 mcg 07/20/19 06:30 07/20/19 06:24 Synthroid PO 25 mcg DAILY@0630 LOLY Administration Metoprolol Tartrate 50 mg 07/19/19 21:00 07/20/19 08:21 Lopressor PO 50 mg BID LOLY Administration Ondansetron HCl 4 mg 07/19/19 13:47 07/20/19 08:21 Zofran IVP 4 mg Q6HR PRN Administration Vomiting Oxybutynin Chloride 10 mg 07/20/19 09:00 07/20/19 08:21 Ditropan Xl PO 10 mg DAILY LOLY Administration Potassium Chloride 10 meq 07/20/19 09:00 07/20/19 08:21 K-Dur 10 PO 10 meq DAILY LOLY Administration Tramadol HCl 50 mg 07/19/19 16:00 07/19/19 20:25 Ultram PO 50 mg TID PRN Administration Pain Vitamin E 400 unit 07/20/19 09:00 07/20/19 08:21 Vitamin E PO 400 unit DAILY LOLY Administration Intake and Output 07/19/19 07/20/19 07/20/19 22:59 06:59 14:59 Intake Total 300 Balance 300 Intake: Oral 300 Other: Voiding Method Toilet # Voids 3 5 Weight 91.767 kg 07/20/19 07:16 07/20/19 07:16 Assessment and Plan Assessment: #1 chronic diastolic congestive heart failure with an NT proBNP of 2200, previously over 4000 #2 worsening lower extremity edema and redness with weight gain and mild worsening of dyspnea on exertion #3 chronic atrial fibrillation #4 hypertension #5 hyperlipidemia #6 severe pulmonary hypertension Plan: From cardiology's perspective, medications were reviewed and we will continue the same. Continue IV Lasix was ordered by nephrology. We'll continue to follow the patient provide further recommendations accordingly. DIRECT MARKETING SPECIALIST note has been reviewed, I agree with a documented findings and plan of care. Patient was seen and examined.
[2019-07-20 15:50] LABS: Appearance,Urine Clear (Clear); Bilirubin,Urine Negative (Negative); Blood,Urine Negative (Negative); Color,Urine Light Yellow; Glucose,Urine (UA) Negative (Negative); Ketones,Urine Negative (Negative); Leukocyte Esterase,Urine Negative (Negative); Nitrite,Urine Negative (Negative); PH, Urine 5.5 (5.0-8.0); Protein,Urine Negative (Negative); Specific Gravity,Urine 1.008 (1.001-1.035); Urobilinogen,Urine <2.0 mg/dL (<2.0)
[2019-07-20 16:52] LABS: Glucose,Whole Blood 113 mg/dL (75-99)
[2019-07-20 16:54] LABS: % Iron Saturation 3.76 (12.00-45.00)
[2019-07-20 20:47] LABS: Glucose,Whole Blood 166 mg/dL (75-99)
--- NOTE | 2019-07-20 20:50 | PN ---
PROGRESS NOTE DATE OF SERVICE: 07/20/2019. REASON FOR FOLLOWUP: Bilateral lower extremity cellulitis, right greater than left. INTERVAL HISTORY: The patient is currently afebrile. The patient is breathing comfortably. Denies having any chest pain, cough, leg swelling has slightly improved. However, the right leg redness is improved. Currently denies any worsening pain to the right leg area and no open wound or any drainage. PHYSICAL EXAMINATION: Blood pressure is 130/63 with a pulse of 82. Temperature 97.4, she is 96% on room air. General description is an elderly female lying in bed in no distress. Respiratory system: Unlabored breathing, clear to auscultation anteriorly. Heart S1, S2. Regular rate and rhythm. Abdomen soft. No tenderness. Right leg swelling and redness has decreased. LABS: Hemoglobin 9.1, white count 3.9, BUN of 14, creatinine 1.24. DIAGNOSTIC IMPRESSION AND PLAN: Patient with bilateral lower extremity cellulitis, right greater than the left in this patient who did have diffuse cellulitis, likely streptococcal disease. The patient is currently on cefazolin and redness has shown improvement to continue with Cefazolin and Zenon wrap to the leg to keep the swelling down and hopefully finish therapy with oral antibiotic on discharge. Continue supportive care. MMODL / IJN: [id number] /
[2019-07-20] MEDS: ATORVASTATIN 20 MG TAB PO SCH (21:06)
[2019-07-21] MEDS: LEVOTHYROXINE 25 MCG TAB PO SCH (06:17)
[2019-07-21 07:12] LABS: Glucose,Whole Blood 116 mg/dL (75-99)
[2019-07-21 08:02] LABS: Anisocytosis Slight; Basophils % (A) 1 %; Eosinophils # (A) 0.2 k/uL (0-0.7); Eosinophils % (A) 3 %; HCT 34.6 % (34.0-46.0); HGB 9.8 gm/dL (11.4-16.0); Hypochromasia Marked; Lymphocytes # (A) 0.8 k/uL (1.0-4.8); Lymphocytes % (A) 17 %; MCH 19.6 pg (25.0-35.0); MCHC 28.2 g/dL (31.0-37.0); MCV 69.5 fL (80.0-100.0); Mean Platelet Volume 5.6; Microcytosis Marked; Monocytes # (A) 0.4 k/uL (0-1.0); Monocytes % (A) 9 %; Neutrophils # (A) 3.1 k/uL (1.3-7.7); Neutrophils % (A) 67 %; Platelet Count 287 k/uL (150-450); Poikilocytosis Slight; RBC 4.98 m/uL (3.80-5.40); RDW 16.3 % (11.5-15.5); WBC 4.6 k/uL (3.8-10.6)
[2019-07-21 08:16] LABS: Albumin 3.8 g/dL (3.5-5.0); Calcium 8.7 mg/dL (8.4-10.2); Potassium 3.4 mmol/L (3.5-5.1); Total Bilirubin 0.7 mg/dL (0.2-1.3); Total Protein 7.1 g/dL (6.3-8.2)
[2019-07-21] MEDS: INSULIN ASPART (NovoLOG) 100 UNIT/ML VIAL SQ SCH ×4 (09:00→20:54)
[2019-07-21] MEDS: OXYBUTYNIN XL 5 MG TAB.ER.24 PO SCH (09:04)
[2019-07-21] MEDS: POTASSIUM CHLORIDE ER 10 MEQ TAB.ER.PRT PO SCH (09:05)
[2019-07-21] MEDS: FUROSEMIDE 10 MG/ML 10 ML VIAL IV SCH (09:05)
[2019-07-21] MEDS: FAMOTIDINE 20 MG TAB PO SCH (09:05)
[2019-07-21] MEDS: FERROUS SULFATE 325 MG TAB PO SCH (09:05)
[2019-07-21] MEDS: APIXABAN 5 MG TAB PO SCH ×2 (09:05→21:29)
[2019-07-21] MEDS: METOPROLOL TARTRATE 50 MG TAB PO SCH ×2 (09:05→21:29)
[2019-07-21] MEDS: VITAMIN E (DL,TOCOPHERYL ACET) 400 UNIT CAP PO SCH (09:06)
[2019-07-21] MEDS: ONDANSETRON 4 MG/2 ML VIAL IVP PRN (09:15)
[2019-07-21] MEDS ORDERED: POTASSIUM CHLORIDE ER 20 MEQ TAB.ER PO STA (09:55)
--- NOTE | 2019-07-21 09:56 | P.PN ---
Subjective Patient is seen in follow-up for acute kidney injury. Renal function is a little worse which is due to diuresis. Creatinine 1.9 today. Urine output and edema have both improved per patient. No vomiting or diarrhea. No chest pain or shortness of breath. Vital signs are stable. General: The patient appeared well nourished and normally developed. HEENT: Head exam is unremarkable. Neck is without jugular venous distension. LUNGS: Lungs are clear to auscultation and percussion. Breath sounds decreased. HEART: Rate and Rhythm are regular. First and second heart sounds normal. No murmurs, rubs or gallops. ABDOMEN: Abdominal exam reveals normal bowel sounds. Non-tender and non- distended. No evidence of peritonitis. EXTREMITITES: 1+ edema. Objective - Vital Signs Vital signs: Vital Signs Temp 97.4 F L 07/21/19 05:09 Pulse 78 07/21/19 07:36 Resp 16 07/21/19 05:09 BP 106/59 07/21/19 07:36 Pulse Ox 92 L 07/21/19 07:36 Intake & Output 07/20/19 07/21/19 07/21/19 18:59 06:59 18:59 Intake Total 1100 Balance 1100 Intake: Intake, IV Titration 100 Amount ceFAZolin 2,000 mg In 100 Sodium Chloride 0.9% 50 ml @ 100 mls/hr IVPB Q12HR [facility] Rx#:[id number] Oral 1000 Other: Voiding Method Toilet # Voids 3 - Labs CBC & Chem 7: 07/21/19 07:25 07/21/19 07:25 Labs: Abnormal Lab Results - Last 24 Hours (Table) 07/20/19 07/20/19 07/20/19 Range/Units 11:53 12:10 16:50 Hgb (11.4-16.0) gm/dL MCV (80.0-100.0) fL MCH (25.0-35.0) pg MCHC (31.0-37.0) g/dL RDW (11.5-15.5) % Lymphocytes # (1.0-4.8) k/uL Potassium (3.5-5.1) mmol/L Creatinine (0.52-1.04) mg/dL Glucose (74-99) mg/dL POC Glucose (mg/dL) 138 H 113 H (75-99) mg/dL Iron 17 L (50-170) ug/dL % Saturation 3.76 L (12.00-45.00) Alkaline Phosphatase (38-126) U/L 07/20/19 07/21/19 07/21/19 Range/Units 20:45 07:06 07:25 Hgb 9.8 L (11.4-16.0) gm/dL MCV 69.5 L (80.0-100.0) fL MCH 19.6 L (25.0-35.0) pg MCHC 28.2 L (31.0-37.0) g/dL RDW 16.3 H (11.5-15.5) % Lymphocytes # 0.8 L (1.0-4.8) k/uL Potassium (3.5-5.1) mmol/L Creatinine (0.52-1.04) mg/dL Glucose (74-99) mg/dL POC Glucose (mg/dL) 166 H 116 H (75-99) mg/dL Iron (50-170) ug/dL % Saturation (12.00-45.00) Alkaline Phosphatase (38-126) U/L 07/21/19 Range/Units 07:25 Hgb (11.4-16.0) gm/dL MCV (80.0-100.0) fL MCH (25.0-35.0) pg MCHC (31.0-37.0) g/dL RDW (11.5-15.5) % Lymphocytes # (1.0-4.8) k/uL Potassium 3.4 L (3.5-5.1) mmol/L Creatinine 1.39 H (0.52-1.04) mg/dL Glucose 109 H (74-99) mg/dL POC Glucose (mg/dL) (75-99) mg/dL Iron (50-170) ug/dL % Saturation (12.00-45.00) Alkaline Phosphatase 170 H (38-126) U/L Microbiology - Last 24 Hours (Table) 07/19/19 12:43 Blood Culture - Preliminary Blood No Growth after 24 hours Assessment and Plan Plan: Assessment: 1. Acute kidney injury mostly prerenal secondary to cardiorenal syndrome. Renal function a little worse today which is due to diuresis. Creatinine 1.39 today. Urinalysis benign. 2. Lower extremity edema. 3. Lower extremity cellulitis maintained on antibiotics. 4. Acute on chronic diastolic CHF with severe tricuspid regurgitation and severe pulmonary hypertension. 5. Hypokalemia secondary to diuresis. 6. Iron deficiency anemia. Plan: Change Lasix to 80 mg orally twice daily. Low-salt diet. Repeat electrolytes in the morning. Avoid nephrotoxins. Replace potassium. 40 mEq today. IV iron 3 doses. First dose today.
--- NOTE | 2019-07-21 11:11 | P.PN ---
Subjective Progress Note Date: 07/21/19 This is a pleasant 73-year-old female patient who follows with Dr. Ruby in the office. She has a known history of hypertrophic obstructive cardiomyopathy, chronic diastolic congestive heart failure, anemia, permanent pacemaker, normal pressure hydrocephalus, severe pulmonary hypertension and severe tricuspid regurgitation, chronic atrial fibrillation for which she is on Eliquis. She was last seen in the office a few weeks ago by Dr. Ruby. Presented as a direct admission from her primary care physician's office due to complaints of worsening edema, erythema, weight gain and slight worsening of shortness of breath. She does complain of some shortness of breath at baseline but has been more noticeable recently. Venous duplex showed no evidence of DVT. Chest x-ray showed chronic changes without any acute process. Echocardiogram with Doppler showed normal LV systolic function with ejection fraction between 60-65%, moderate asymmetric septal hypertrophy, LVOT turbulence, mild aortic regurgitation, suspected subaortic stenosis, moderate mitral annular calcification with mild to moderate MR, severe TR and severe pulmonary hypertension with an RVSP of 97 mmHg. This is similar findings to the echocardiogram done in the office in August of this year. Labs showed a hemoglobin of 9.1 with hemoglobin of 8.6 about 6 weeks ago. BUN 14, creatinine 1.24, NT proBNP came back to be elevated at 2200 which is actually down from reading in March of this year of 4990. She is currently on Eliquis 5 mg by mouth twice a day, atorvastatin 20 mg by mouth daily, metoprolol 50 mg by mouth twice a day and Lasix 80 mg IV push every 12 hours as ordered by nephrology. 07/21/19 Patient seen and examined today sitting up at the side of the bed. Main complaint this morning is of nausea. She feels her edema is improving. She does have some dyspnea on exertion but this is her baseline. Labs this morning show a stable hemoglobin, potassium 3.4, BUN of 15 and creatinine 1.39. She c ontinues to be followed by nephrology with switched her to by mouth Lasix and her replacing her potassium. Objective - Vital Signs Vital signs: Vital Signs Temp 97.4 F L 07/21/19 05:09 Pulse 78 07/21/19 07:36 Resp 16 07/21/19 05:09 BP 106/59 07/21/19 07:36 Pulse Ox 92 L 07/21/19 07:36 Intake & Output 07/20/19 07/21/19 07/21/19 18:59 06:59 18:59 Intake Total 1100 Balance 1100 Intake: Intake, IV Titration 100 Amount ceFAZolin 2,000 mg In 100 Sodium Chloride 0.9% 50 ml @ 100 mls/hr IVPB Q12HR [facility] Rx#:[id number] Oral 1000 Other: Voiding Method Toilet # Voids 3 - Exam PHYSICAL EXAMINATION: HEENT: Head is atraumatic, normocephalic. Pupils equal, round. Neck is supple. There is no elevated jugular venous pressure. HEART EXAMINATION: Heart sounds irregularly irregular, S1 and S2 with a systolic murmur. CHEST EXAMINATION: Lungs reveal diminished air entry bilaterally. No chest wall tenderness is noted on palpation or with deep breathing. ABDOMEN: Soft, nontender. Bowel sounds are heard. No organomegaly noted. EXTREMITIES: 2+ peripheral pulses with evidence of mild to moderate peripheral edema and chronic skin changes consistent with chronic venous stasis. NEUROLOGIC patient is awake, alert and oriented 3. - Labs CBC & Chem 7: 07/21/19 07:25 07/21/19 07:25 Labs: Abnormal Lab Results - Last 24 Hours (Table) 07/20/19 07/20/19 07/20/19 Range/Units 11:53 12:10 16:50 Hgb (11.4-16.0) gm/dL MCV (80.0-100.0) fL MCH (25.0-35.0) pg MCHC (31.0-37.0) g/dL RDW (11.5-15.5) % Lymphocytes # (1.0-4.8) k/uL Potassium (3.5-5.1) mmol/L Creatinine (0.52-1.04) mg/dL Glucose (74-99) mg/dL POC Glucose (mg/dL) 138 H 113 H (75-99) mg/dL Iron 17 L (50-170) ug/dL % Saturation 3.76 L (12.00-45.00) Alkaline Phosphatase (38-126) U/L 07/20/19 07/21/19 07/21/19 Range/Units 20:45 07:06 07:25 Hgb 9.8 L (11.4-16.0) gm/dL MCV 69.5 L (80.0-100.0) fL MCH 19.6 L (25.0-35.0) pg MCHC 28.2 L (31.0-37.0) g/dL RDW 16.3 H (11.5-15.5) % Lymphocytes # 0.8 L (1.0-4.8) k/uL Potassium (3.5-5.1) mmol/L Creatinine (0.52-1.04) mg/dL Glucose (74-99) mg/dL POC Glucose (mg/dL) 166 H 116 H (75-99) mg/dL Iron (50-170) ug/dL % Saturation (12.00-45.00) Alkaline Phosphatase (38-126) U/L 07/21/19 Range/Units 07:25 Hgb (11.4-16.0) gm/dL MCV (80.0-100.0) fL MCH (25.0-35.0) pg MCHC (31.0-37.0) g/dL RDW (11.5-15.5) % Lymphocytes # (1.0-4.8) k/uL Potassium 3.4 L (3.5-5.1) mmol/L Creatinine 1.39 H (0.52-1.04) mg/dL Glucose 109 H (74-99) mg/dL POC Glucose (mg/dL) (75-99) mg/dL Iron (50-170) ug/dL % Saturation (12.00-45.00) Alkaline Phosphatase 170 H (38-126) U/L Microbiology - Last 24 Hours (Table) 07/19/19 12:43 Blood Culture - Preliminary Blood No Growth after 24 hours Assessment and Plan Assessment: #1 chronic diastolic congestive heart failure with an NT proBNP of 2200, previously over 4000 #2 worsening lower extremity edema and redness with weight gain and mild wor sening of dyspnea on exertion #3 chronic atrial fibrillation #4 hypertension #5 hyperlipidemia #6 severe pulmonary hypertension Plan: From cardiology's perspective, medications were reviewed and we will continue the same. Continue Lasix as ordered by nephrology. We'll continue to follow the patient provide further recommendations accordingly. INSPECTING SUPERVISOR note has been reviewed, I agree with a documented findings and plan of care. Patient was seen and examined.
[2019-07-21 12:01] LABS: Glucose,Whole Blood 184 mg/dL (75-99)
[2019-07-21] MEDS: SODIUM FERRIC GLUCONAT-SUCROSE 125 MG in SODIUM CHLORIDE 0.9% 100 ML IVPB SCH (12:27)
[2019-07-21] MEDS ORDERED: SODIUM FERRIC GLUCONAT-SUCROSE 125 MG in SODIUM CHLORIDE 0.9% 100 ML IVPB ONE (13:10)
--- NOTE | 2019-07-21 13:42 | P.PN ---
Subjective Progress Note Date: 07/21/19 This is a 73-year-old female patient who presented as a direct admit from her PCP for bilateral lower leg cellulitis and edema. Patient reports that increase leg redness started approximately 5 days ago. Patient denies any fevers does report that right leg appears to be worse than left with increased weeping. Patient does have a past medical history of atrial fibrillation, CHF, CVA, diabetes mellitus, fibromyalgia, osteoarthritis, pneumonia, hiatal hernia, skin cancer. Patient does have increased redness and swelling noted to right leg will order venous Doppler to rule out DVT. Admission labs ordered. Patient is complaining of some cough and shortness of breath will order chest x-ray. BNP ordered. Blood culture and lactic acid ordered. Nephrology and infectious disease service is consulted. At this time patient denies chest pain. Patient denies any nausea vomiting or diarrhea. Patient denies any urinary burning or frequency. On 07/20/2019 patient was seen and examined on the medical floor she is alert and oriented 3 in no apparent distress she is complaining of nausea today otherwise she denies any complaints she still has severe bilateral lower extremity edema extending from the groin all the way down to the feet, this is likely related to acute on chronic diastolic congestive heart failure and 2 severe pulmonary hypertension, patient states that she was admitted to the hospital in March that time she lost about 30 pounds however she regained all that weight since her discharge, there is significant erythema and signs of cellulitis in the bilateral thigh area. On 07/21/2019 patient was seen and examined on the medical floor she is alert and oriented 3 she is still complaining of bilateral lower extremity swelling and erythema there is still clear fluid oozing out of the right thigh area, otherwise there is no complaints there is no fever or chills no headache or dizziness no chest pain no shortness of breath no cough no nausea or vomiting no abdominal pain no diarrhea and no urinary symptoms Objective - Vital Signs Vital signs: Vital Signs Temp 97.4 F L 07/21/19 05:09 Pulse 78 07/21/19 07:36 Resp 16 07/21/19 05:09 BP 106/59 07/21/19 07:36 Pulse Ox 92 L 07/21/19 07:36 Intake & Output 07/20/19 07/21/19 07/21/19 18:59 06:59 18:59 Intake Total 1100 Balance 1100 Intake: Intake, IV Titration 100 Amount ceFAZolin 2,000 mg In 100 Sodium Chloride 0.9% 50 ml @ 100 mls/hr IVPB Q12HR [facility] Rx#:[id number] Oral 1000 Other: Voiding Method Toilet # Voids 3 - Exam In general patient is alert and oriented 3 in no apparent distress HEENT head normocephalic and atraumatic Neck is supple no JVD no goiter no lymphadenopathy Chest exam reveals a few scattered rhonchi bilaterally no wheezing Cardiac exam reveals regular heart sounds S1 and S2 no gallops no murmurs Abdomen is soft nontender no organomegaly with normal bowel sounds Extremity severe 3+ bilateral edema extending from the groin all the way down to the feet with erythema in bilateral thigh areas Neurological examination reveals no gross focal deficit - Labs CBC & Chem 7: 07/21/19 07:25 07/21/19 07:25 Labs: Abnormal Lab Results - Last 24 Hours (Table) 07/20/19 07/20/19 07/20/19 Range/Units 12:10 16:50 20:45 Hgb (11.4-16.0) gm/dL MCV (80.0-100.0) fL MCH (25.0-35.0) pg MCHC (31.0-37.0) g/dL RDW (11.5-15.5) % Lymphocytes # (1.0-4.8) k/uL Potassium (3.5-5.1) mmol/L Creatinine (0.52-1.04) mg/dL Glucose (74-99) mg/dL POC Glucose (mg/dL) 113 H 166 H (75-99) mg/dL Iron 17 L (50-170) ug/dL % Saturation 3.76 L (12.00-45.00) Alkaline Phosphatase (38-126) U/L 07/21/19 07/21/19 07/21/19 Range/Units 07:06 07:25 07:25 Hgb 9.8 L (11.4-16.0) gm/dL MCV 69.5 L (80.0-100.0) fL MCH 19.6 L (25.0-35.0) pg MCHC 28.2 L (31.0-37.0) g/dL RDW 16.3 H (11.5-15.5) % Lymphocytes # 0.8 L (1.0-4.8) k/uL Potassium 3.4 L (3.5-5.1) mmol/L Creatinine 1.39 H (0.52-1.04) mg/dL Glucose 109 H (74-99) mg/dL POC Glucose (mg/dL) 116 H (75-99) mg/dL Iron (50-170) ug/dL % Saturation (12.00-45.00) Alkaline Phosphatase 170 H (38-126) U/L 07/21/19 Range/Units 11:49 Hgb (11.4-16.0) gm/dL MCV (80.0-100.0) fL MCH (25.0-35.0) pg MCHC (31.0-37.0) g/dL RDW (11.5-15.5) % Lymphocytes # (1.0-4.8) k/uL Potassium (3.5-5.1) mmol/L Creatinine (0.52-1.04) mg/dL Glucose (74-99) mg/dL POC Glucose (mg/dL) 184 H (75-99) mg/dL Iron (50-170) ug/dL % Saturation (12.00-45.00) Alkaline Phosphatase (38-126) U/L Microbiology - Last 24 Hours (Table) 07/19/19 12:43 Blood Culture - Preliminary Blood No Growth after 24 hours Assessment and Plan Plan: 1. Bilateral lower external be cellulitis and edema. Patient started on Ancef for IV antibiotics. Blood cultures ordered. Infectious disease consulted. BNP ordered. Nephrology service is consulted. Venous Doppler ordered to rule out DVT 2. History of sick sinus syndrome with pacemaker placement 3. History of chronic persistent atrial fibrillation maintained on eliquis 4. History of hyperlipidemia continue statin 5. History of diabetes mellitus type 2. Sliding scale insulin ordered. Hemoglobin A1c has been ordered 6. History of fibromyalgia 7. History of iron deficiency anemia 8. History of normal pressure hydrocephalus previously seen on computed tomography scan during previous admission. She was followed with neurosurgeon in outpatient setting 9. Acute on Chronic diastolic congestive heart failure, with severe pulmonary hypertension, patient states that she lost 30 pounds during her admission in March but she has regained all that weight since her discharge, she is currently maintained on IV Lasix 10. History of Hypertrophic cardiomyopathy DVT prophylaxis eliquis. GI prophylaxis Pepcid Infectious disease and nephrology service is consulted Patient started on Ancef for antibiotic Venous Doppler ordered to rule out DVT and were negative Continue current care possible discharge to home in the next 1-2 days
[2019-07-21 16:52] LABS: Glucose,Whole Blood 113 mg/dL (75-99)
[2019-07-21] MEDS: FUROSEMIDE 80 MG TAB PO SCH (17:03)
--- NOTE | 2019-07-21 18:04 | PN ---
PROGRESS NOTE DATE OF SERVICE: 07/21/2019. REASON FOR FOLLOWUP: Bilateral lower extremity cellulitis, right greater than the left. INTERVAL HISTORY: The patient is currently afebrile. Patient is breathing comfortably. The patient complaining of slight nausea this morning, but no further known chest pain. No cough. No abdominal pain. No pain to the leg area. PHYSICAL EXAMINATION: Blood pressure 106/59 with a pulse of 78. Temperature is 97.4. She is 92% on room air. General description is an elderly female up in the chair in no distress. Respiratory system: Unlabored breathing, clear to auscultation anteriorly. Heart S1, S2. Regular rate and rhythm. Abdomen soft. No tenderness. Leg swelling persists though redness has improved. LABS: Hemoglobin is 9.8, white count 4.6, BUN of 15, creatinine 1.39. Blood culture has been negative. DIAGNOSTIC IMPRESSION AND PLAN: Patient with bilateral lower extremity cellulitis, the right greater than the left in this patient who has diffuse swelling and redness, likely streptococcal disease. The patient has shown overall clinical improvement on cefazolin to continue with plan to finish care with oral Keflex. Continue supportive care. MMODL / IJN: [id number] /
[2019-07-21 20:52] LABS: Glucose,Whole Blood 125 mg/dL (75-99)
[2019-07-21] MEDS: ATORVASTATIN 20 MG TAB PO SCH (21:29)
[2019-07-21 21:41] VITALS: TEMP 97.5
[2019-07-22] MEDS: LEVOTHYROXINE 25 MCG TAB PO SCH (05:37)
[2019-07-22 06:59] LABS: Glucose,Whole Blood 119 mg/dL (75-99)
[2019-07-22] MEDS: INSULIN ASPART (NovoLOG) 100 UNIT/ML VIAL SQ SCH ×2 (07:10→12:32)
[2019-07-22] MEDS: VITAMIN E (DL,TOCOPHERYL ACET) 400 UNIT CAP PO SCH (08:22)
[2019-07-22] MEDS: SODIUM FERRIC GLUCONAT-SUCROSE 125 MG in SODIUM CHLORIDE 0.9% 100 ML IVPB SCH (08:23)
[2019-07-22] MEDS: FAMOTIDINE 20 MG TAB PO SCH (08:36)
[2019-07-22] MEDS: FERROUS SULFATE 325 MG TAB PO SCH (08:36)
[2019-07-22] MEDS: METOPROLOL TARTRATE 50 MG TAB PO SCH (08:36)
[2019-07-22] MEDS: APIXABAN 5 MG TAB PO SCH (08:36)
[2019-07-22] MEDS: OXYBUTYNIN XL 5 MG TAB.ER.24 PO SCH (08:36)
[2019-07-22] MEDS: FUROSEMIDE 80 MG TAB PO SCH (08:36)
[2019-07-22] MEDS: POTASSIUM CHLORIDE ER 10 MEQ TAB.ER.PRT PO SCH (08:36)
[2019-07-22 10:21] LABS: Albumin 3.5 g/dL (3.5-5.0); Calcium 8.2 mg/dL (8.4-10.2); Magnesium 1.9 mg/dL (1.6-2.3); Potassium 3.2 mmol/L (3.5-5.1); Total Bilirubin 0.7 mg/dL (0.2-1.3); Total Protein 6.5 g/dL (6.3-8.2)
[2019-07-22 10:58] LABS: Anisocytosis Slight; Basophils % (A) 1 %; Eosinophils # (A) 0.2 k/uL (0-0.7); Eosinophils % (A) 4 %; HCT 31.9 % (34.0-46.0); HGB 9.1 gm/dL (11.4-16.0); Hypochromasia Marked; Lymphocytes # (A) 0.7 k/uL (1.0-4.8); Lymphocytes % (A) 16 %; MCH 20.2 pg (25.0-35.0); MCHC 28.6 g/dL (31.0-37.0); MCV 70.5 fL (80.0-100.0); Mean Platelet Volume 5.6; Microcytosis Moderate; Monocytes # (A) 0.4 k/uL (0-1.0); Monocytes % (A) 10 %; Neutrophils # (A) 2.9 k/uL (1.3-7.7); Neutrophils % (A) 68 %; Platelet Count 252 k/uL (150-450); RBC 4.52 m/uL (3.80-5.40); RDW 16.4 % (11.5-15.5); WBC 4.2 k/uL (3.8-10.6)
--- NOTE | 2019-07-22 11:28 | P.PN ---
Subjective This is a pleasant 73-year-old female past medical history significant for hypertrophic obstructive cardiomyopathy, chronic diastolic heart failure, permanent pacemaker implantation, anemia, renal pressure hydrocephalus, severe pulmonary hypertension, chronic persistent atrial fibrillation on long-term anticoagulation, hypertension and dyslipidemia. She follows in the office with Dr. Ruby. We are following her secondary to acute exacerbation of heart failure. She is seen and examined sitting up at the edge of the bed in no acute distress. She is maintaining oxygen saturations on room air and states she feels back to her baseline. She denies any worsening shortness of breath, no chest pain dizziness or palpitations. Currently maintained on Eliquis 5 mg twice a day, atorvastatin 20 mg at bedtime, Lasix 80 mg by mouth twice a day, Lopressor 50 mg twice a day. Blood pressure 103/68 heart rate 88 afebrile maintaining oxygen saturation on room air. Labs from today pending. GENERAL: Well-appearing, well-nourished and in no acute distress. NECK: Supple without JVD or thyromegaly. LUNGS: Breath sounds clear to auscultation bilaterally. Respiration equal and unlabored. No wheezes, rales or rhonchi. HEART: Irregular rate and rhythm with systolic ejection murmur at the base, no rubs or gallops. S1 and S2 heard. EXTREMITIES: Normal range of motion, 2+ pitting edema bilaterally with BECKY wraps in place. No clubbing or cyanosis. Peripheral pulses intact. ASSESSMENT Acute on chronic diastolic heart failure Bilateral lower extremity cellulitis Acute kidney injury Chronic persistent atrial fibrillation Hypertension Dyslipidemia Pulmonary hypertension PLAN Continue current medical regimen. Follow up with Dr. Ruby in 1-2 weeks. Nurse Practitioner note has been reviewed, I agree with a documented findings and plan of care. Patient was seen and examined. Objective - Vital Signs Vital signs: Vital Signs Temp 97.5 F L 07/22/19 06:21 Pulse 80 07/22/19 06:21 Resp 16 07/22/19 08:00 BP 103/68 07/22/19 06:21 Pulse Ox 99 07/22/19 06:21 Intake & Output 07/21/19 07/22/19 07/22/19 18:59 06:59 18:59 Intake Total 540 Balance 540 Weight 90.6 kg Intake: Oral 540 Other: Voiding Method Toilet # Voids 6 1 - Labs CBC & Chem 7: 07/22/19 09:21 07/22/19 09:21 Labs: Abnormal Lab Results - Last 24 Hours (Table) 07/21/19 07/21/19 07/21/19 Range/Units 11:49 16:45 20:51 POC Glucose (mg/dL) 184 H 113 H 125 H (75-99) mg/dL 07/22/19 Range/Units 06:51 POC Glucose (mg/dL) 119 H (75-99) mg/dL Microbiology - Last 24 Hours (Table) 07/19/19 12:43 Blood Culture - Preliminary Blood No Growth after 48 hours
[2019-07-22 11:51] LABS: Glucose,Whole Blood 146 mg/dL (75-99)
[2019-07-22] MEDS ORDERED: POTASSIUM CHLORIDE ER 20 MEQ TAB.ER PO STA (12:20)
--- NOTE | 2019-07-22 12:22 | P.PN ---
Subjective Patient is seen in follow-up for acute kidney injury. Renal function is stable. Creatinine 1.39 today. Urine output and edema have both improved per patient. No vomiting or diarrhea. No chest pain or shortness of breath. Vital signs are stable. General: The patient appeared well nourished and normally developed. HEENT: Head exam is unremarkable. Neck is without jugular venous distension. LUNGS: Lungs are clear to auscultation and percussion. Breath sounds decreased. HEART: Rate and Rhythm are regular. First and second heart sounds normal. No murmurs, rubs or gallops. ABDOMEN: Abdominal exam reveals normal bowel sounds. Non-tender and non- distended. No evidence of peritonitis. EXTREMITITES: 1+ edema. Objective - Vital Signs Vital signs: Vital Signs Temp 97.5 F L 07/22/19 06:21 Pulse 80 07/22/19 06:21 Resp 16 07/22/19 08:00 BP 103/68 07/22/19 06:21 Pulse Ox 99 07/22/19 06:21 Intake & Output 07/21/19 07/22/19 07/22/19 18:59 06:59 18:59 Intake Total 540 Balance 540 Weight 90.6 kg Intake: Oral 540 Other: Voiding Method Toilet # Voids 6 1 - Labs CBC & Chem 7: 07/22/19 09:21 07/22/19 09:21 Labs: Abnormal Lab Results - Last 24 Hours (Table) 07/21/19 07/21/19 07/22/19 Range/Units 16:45 20:51 06:51 Hgb (11.4-16.0) gm/dL Hct (34.0-46.0) % MCV (80.0-100.0) fL MCH (25.0-35.0) pg MCHC (31.0-37.0) g/dL RDW (11.5-15.5) % Lymphocytes # (1.0-4.8) k/uL Potassium (3.5-5.1) mmol/L Carbon Dioxide (22-30) mmol/L Creatinine (0.52-1.04) mg/dL Glucose (74-99) mg/dL POC Glucose (mg/dL) 113 H 125 H 119 H (75-99) mg/dL Calcium (8.4-10.2) mg/dL Alkaline Phosphatase (38-126) U/L 07/22/19 07/22/19 07/22/19 Range/Units 09:21 09:21 11:35 Hgb 9.1 L (11.4-16.0) gm/dL Hct 31.9 L (34.0-46.0) % MCV 70.5 L (80.0-100.0) fL MCH 20.2 L (25.0-35.0) pg MCHC 28.6 L (31.0-37.0) g/dL RDW 16.4 H (11.5-15.5) % Lymphocytes # 0.7 L (1.0-4.8) k/uL Potassium 3.2 L (3.5-5.1) mmol/L Carbon Dioxide 31 H (22-30) mmol/L Creatinine 1.39 H (0.52-1.04) mg/dL Glucose 173 H (74-99) mg/dL POC Glucose (mg/dL) 146 H (75-99) mg/dL Calcium 8.2 L (8.4-10.2) mg/dL Alkaline Phosphatase 132 H (38-126) U/L Microbiology - Last 24 Hours (Table) 07/19/19 12:43 Blood Culture - Preliminary Blood No Growth after 48 hours Assessment and Plan Plan: Assessment: 1. Acute kidney injury mostly prerenal secondary to cardiorenal syndrome. Renal function is stable. Creatinine 1.39 today. Urinalysis benign. 2. Lower extremity edema. Better. 3. Lower extremity cellulitis maintained on antibiotics. 4. Acute on chronic diastolic CHF with severe tricuspid regurgitation and severe pulmonary hypertension. 5. Hypokalemia secondary to diuresis. Magnesium normal. 6. Iron deficiency anemia. Plan: Maintain Lasix 80 mg orally twice daily. Low-salt diet. Repeat electrolytes in the morning. Avoid nephrotoxins. Replace potassium. 40 mEq today. Increase daily potassium supplementation to 20 mEq once daily. IV iron 3 doses. Second dose today. Anticipate discharge soon. Follow up outpatient in the next 1-2 weeks. Repeat BMP and magnesium level in 3-4 days.
[2019-07-22 14:09] VITALS: BP 126/63; PULSE 69; RESP 18
--- NOTE | 2019-07-22 14:31 | P.DS ---
Providers Date of admission: 07/19/19 11:40 Expected date of discharge: 07/22/19 Attending physician: Kamaljit Krause Consults: 07/19/19 12:10 Consult Physician Routine Consulting Provider: Sean Ascencio Consult Reason/Comments: yes Do you want consulting provider notified?: Yes 07/19/19 15:58 Consult Physician Routine Consulting Provider: Yayo Calvert Consult Reason/Comments: CHF increased peripheral edema Do you want consulting provider notified?: Yes 07/19/19 23:38 Consult Physician Routine Consulting Provider: Sharri Lovell Consult Reason/Comments: bilateral lower extremity cellulitis Do you want consulting provider notified?: Already Contacted Primary care physician: Kamaljit Jimi [facility] Course: Discharge diagnosis 1. Bilateral lower external be cellulitis and edema. Patient started on Ancef for IV antibiotics. Blood cultures ordered. Infectious disease consulted. Nephrology service is consulted. Venous Doppler completed showing no evidence of DVT blood culture currently showing no growth. Discussed case with Dr. Lovell per infectious disease, patient to be discharged on Keflex 500 3 times a day for 7 days 2. History of sick sinus syndrome with pacemaker placement 3. History of chronic persistent atrial fibrillation maintained on eliquis 4. History of hyperlipidemia continue statin 5. History of diabetes mellitus type 2. Sliding scale insulin ordered. A1c 6.5 6. History of fibromyalgia 7. History of iron deficiency anemia 8. History of normal pressure hydrocephalus previously seen on computed tomography scan during previous admission. She was followed with neurosurgeon in outpatient setting 9. Acute on Chronic diastolic congestive heart failure, with severe pulmonary hypertension, patient states that she lost 30 pounds during her admission in March but she has regained all that weight since her discharge, she is currently maintained on IV Lasix. 2-D echo completed showing an EF of 60-65%. Discussed case with cardiology services. Patient has been cleared for discharge will follow-up outpatient with cardiology. Also discussed with nephrology services. Patient to be resumed on home dose of Lasix. 10. History of Hypertrophic cardiomyopathy 11. Acute kidney injury. Patient was evaluated by nephrology services. Patient has been cleared for discharge from nephrology standpoint creatinine 1.39. Will order repeat CMP for 2 days. Maintain on Lasix 80 mg twice daily per nephrology 12. Hypokalemia. Per nephrology increased daily potassium supplement 20 mEq daily 13. Iron deficiency anemia. Patient received IV iron. Patient will be DC'd home on ferrous sulfate Hospital course This is a 73-year-old female patient who presented as a direct admit from her PCP for bilateral lower leg cellulitis and edema. Patient reports that increase leg redness started approximately 5 days ago. Patient denies any fevers does report that right leg appears to be worse than left with increased weeping. Patient does have a past medical history of atrial fibrillation, CHF, CVA, diabetes mellitus, fibromyalgia, osteoarthritis, pneumonia, hiatal hernia, skin cancer. Patient does have increased redness and swelling noted to right leg will order venous Doppler to rule out DVT. Admission labs ordered. Patient is complaining of some cough and shortness of breath will order chest x-ray. BNP ordered. Blood culture and lactic acid ordered. Nephrology and infectious disease service is consulted. At this time patient denies chest pain. Patient denies any nausea vomiting or diarrhea. Patient denies any urinary burning or frequency. On 07/20/2019 patient was seen and examined on the medical floor she is alert and oriented 3 in no apparent distress she is complaining of nausea today otherwise she denies any complaints she still has severe bilateral lower extremity edema extending from the groin all the way down to the feet, this is likely related to acute on chronic diastolic congestive heart failure and 2 severe pulmonary hypertension, patient states that she was admitted to the hospital in March that time she lost about 30 pounds however she regained all that weight since her discharge, there is significant erythema and signs of cellulitis in the bilateral thigh area. On 07/21/2019 patient was seen and examined on the medical floor she is alert and oriented 3 she is still complaining of bilateral lower extremity swelling and erythema there is still clear fluid oozing out of the right thigh area, otherwise there is no complaints there is no fever or chills no headache or dizziness no chest pain no shortness of breath no cough no nausea or vomiting no abdominal pain no diarrhea and no urinary symptoms On 07/22/2019 patient is alert and oriented 3. Patient is eager to go home. Patient has been cleared by infectious disease, nephrology and cardiology services. Per infectious disease patient will be DC'd on Keflex 3 times a day for 7 days. Per nephrology services patient will be DC'd on home dose of Lasix repeat CMP has been ordered for 2 days. Potassium supplement increased. Per cardiology services patient will follow-up outpatient maintain on current dose of Lasix. At this time patient denies chest pain or shortness of breath. Patient denies nausea vomiting or diarrhea. Patient denies any urinary burning or frequency I performed an examination of the patient and discussed their management with the Nurse Practitioner. I have reviewed the Nurse Practitioner's notes and agree with the documented findings and plan of care Patient Condition at Discharge: Stable Plan - Discharge Summary Discharge Rx Participant: No New Discharge Prescriptions: New Cephalexin [Keflex] 500 mg PO Q8HR 7 Days #21 cap Continue Atorvastatin [Lipitor] 20 mg PO HS Tolterodine Tartrate [Detrol LA] 4 mg PO DAILY Metoprolol Tartrate [Lopressor] 50 mg PO BID tab Apixaban [Eliquis] 5 mg PO BID 30 Days #60 tab Levothyroxine Sodium [Synthroid] 25 mcg PO DAILY traMADol HCL 50 mg PO TID Vitamin E 100 unit PO DAILY Acetaminophen Tab [Tylenol] 650 mg PO Q6H PRN PRN Reason: Pain Potassium Chloride 8 meq PO DAILY Furosemide [Lasix] 80 mg PO BID Ferrous Sulfate [Iron (65 MG Elemental)] 325 mg PO DAILY Discharge Medication List Atorvastatin [Lipitor] 20 mg PO HS 08/24/16 [History] Tolterodine Tartrate [Detrol LA] 4 mg PO DAILY 10/14/18 [History] Apixaban [Eliquis] 5 mg PO BID 30 Days #60 tab 10/15/18 [Rx] Metoprolol Tartrate [Lopressor] 50 mg PO BID tab 10/15/18 [Rx] Levothyroxine Sodium [Synthroid] 25 mcg PO DAILY 04/22/19 [History] Acetaminophen Tab [Tylenol] 650 mg PO Q6H PRN 07/19/19 [History] Ferrous Sulfate [Iron (65 MG Elemental)] 325 mg PO DAILY 07/19/19 [History] Furosemide [Lasix] 80 mg PO BID 07/19/19 [History] Vitamin E 100 unit PO DAILY 07/19/19 [History] traMADol HCL 50 mg PO TID 07/19/19 [History] Cephalexin [Keflex] 500 mg PO Q8HR 7 Days #21 cap 07/22/19 [Rx] Potassium Chloride ER [K-Dur 10] 10 meq PO BID 30 Days #60 [email or web address] 07/22/19 [Rx] Follow up Appointment(s)/Referral(s): Kamaljit Krause MD [Primary Care Provider] - 1 Week Lexi Ruby MD [STAFF PHYSICIAN] - 2 Weeks Patient Instructions/Handouts: Heart Failure (GEN), Cellulitis (DC) Activity/Diet/Wound Care/Special Instructions: Cardiac, diabetic diet Activity as tolerated, elevate legs at rest.
--- NOTE | 2019-07-22 16:17 | PN ---
PROGRESS NOTE DATE OF SERVICE: 07/22/2019. REASON FOR FOLLOWUP: Right lower extremity cellulitis. INTERVAL HISTORY: The patient is currently afebrile. The patient is breathing comfortably. Patient denies having any chest pain or cough. The leg swelling persists though the redness has improved. No nausea, no vomiting. No diarrhea. PHYSICAL EXAMINATION: Blood pressure 126/53 with a pulse of 69, temperature 97.5. She is 99% on room air. General description is an elderly female lying in bed in no distress. RESPIRATORY SYSTEM: Unlabored breathing, clear to auscultation anteriorly. Heart S1, S2. Regular rate and rhythm. Abdomen soft, no tenderness. Right leg swelling and redness has improved. No open wound or any drainage. LABS: Hemoglobin 9.1, white count 4.2. DIAGNOSTIC IMPRESSION AND PLAN: Patient with bilateral lower extremity swelling and cellulitis, right greater than the left. The patient has shown clinical improvement on IV cefazolin to transition to oral Keflex 100 mg p.o. every 8 hours for another 7 days with close outpatient followup. MMODL / IJN: [id number] /
[2019-07-22] MEDS ORDERED: POTASSIUM CHLORIDE ER 10 MEQ TAB.ER.PRT PO SCH (21:00)
== END 2019-07-22 16:26 | disposition home or self-care (01) | DRG 602 ==
LOC: 4MS4W 11:40
PROVIDERS: ADMIT Internal Medicine; ATTEND Internal Medicine
DX: L03.116 Cellulitis of left lower limb (principal); I50.33 Acute on chronic diastolic (congestive) heart failure; I13.0 Hypertensive heart and chronic kidney disease with heart failure and stage 1 through stage 4 chronic kidney disease, or unspecified chronic kidney disease; I42.1 Obstructive hypertrophic cardiomyopathy; I48.19 Other persistent atrial fibrillation; N17.9 Acute kidney failure, unspecified; L03.115 Cellulitis of right lower limb; D50.9 Iron deficiency anemia, unspecified; E11.22 Type 2 diabetes mellitus with diabetic chronic kidney disease; E78.5 Hyperlipidemia, unspecified; E87.6 Hypokalemia; I08.1 Rheumatic disorders of both mitral and tricuspid valves; I27.20 Pulmonary hypertension, unspecified; L30.9 Dermatitis, unspecified; B95.62 Methicillin resistant Staphylococcus aureus infection as the cause of diseases classified elsewhere; B95.5 Unspecified streptococcus as the cause of diseases classified elsewhere; M79.7 Fibromyalgia; N18.9 Chronic kidney disease, unspecified; T50.2X5A Adverse effect of carbonic-anhydrase inhibitors, benzothiadiazides and other diuretics, initial encounter; Z79.01 Long term (current) use of anticoagulants; Z79.890 Hormone replacement therapy; Z79.899 Other long term (current) drug therapy; Z82.0 Family history of epilepsy and other diseases of the nervous system; Z85.828 Personal history of other malignant neoplasm of skin; Z86.73 Personal history of transient ischemic attack (TIA), and cerebral infarction without residual deficits; Z87.891 Personal history of nicotine dependence; Z90.710 Acquired absence of both cervix and uterus; Z95.0 Presence of cardiac pacemaker; Z96.659 Presence of unspecified artificial knee joint; Z98.42 Cataract extraction status, left eye; Z98.41 Cataract extraction status, right eye; Z87.01 Personal history of pneumonia (recurrent); Z88.5 Allergy status to narcotic agent; Z88.8 Allergy status to other drugs, medicaments and biological substances; Z91.040 Latex allergy status
CPT/HCPCS: 71046; 80053; 81003; 83036; 83540; 83550; 83605; 83735; 83880; 85025; 87040; 93005; 93306; 93970

== ENCOUNTER → 2019-08-26 | Outpatient (CLI) | payer MEDICARE ==
--- NOTE | 2019-08-26 16:17 | CT ---
EXAMINATION TYPE: CT abdomen pelvis wo con DATE OF EXAM: 08/26/2019 HISTORY: severe lymphedema bilateral legs CT DLP: 720 mGycm. Automated Exposure Control for Dose Reduction was Utilized. TECHNIQUE: CT scan of the abdomen and pelvis is performed without oral or IV contrast. COMPARISON: CT abdomen April 23, 2019 FINDINGS: Within the limitations of a non-contrast study, the following observations are made. LUNG BASES: Cardiomegaly with partial visualization of right-sided pacemaker wires along with small b ilateral pleural effusions partially imaged. LIVER/GB: Some ascites anterior superior aspect of liver redemonstrated. PANCREAS: No significant abnormality is seen. SPLEEN: Mild splenomegaly redemonstrated measuring 13.3 cm long axis axial image 21. ADRENALS: No significant abnormality is seen. KIDNEYS: No renal stones or hydronephrosis is seen bilaterally. BOWEL: Oral contrast does not reach colonic level making evaluation distal bowel. Suboptimal. No susp icious small large bowel dilatation. GENITAL ORGANS: Uterus surgically absent or markedly atrophic. LYMPH NODES: No new greater than 1cm abdominal or pelvic lymph nodes are appreciated. OSSEOUS STRUCTURES: Vacuum disc phenomenon with mild disc space narrowing L4-L5 level. [id number] te height loss superior L2 level presumed subacute fracture new from prior study but shows sclerosis only. OTHER: Redemonstration of moderate to severe diffuse soft tissue anasarca. Small amount of free fluid presacral space image 69 is noted. IMPRESSION: Persist and moderate to severe diffuse subcutaneous edema with mild ascites and small cyril ateral pleural effusions likely slightly improved from prior presumed product of underlying heart rodney lure as cardiomegaly is redemonstrated.
== END | disposition home or self-care (01) ==
LOC: RADCTMAIN 14:08
PROVIDERS: ATTEND Internal Medicine
DX: R18.8 Other ascites (principal); I89.0 Lymphedema, not elsewhere classified
CPT/HCPCS: 74176

== ENCOUNTER → 2019-09-03 | Outpatient (CLI) | payer MEDICARE ==
--- NOTE | 2019-09-03 15:16 | US ---
LOWER EXTREMITY VENOUS INSUFFICIENCY CLINICAL HISTORY: L97.112 NONPRESSURE CHRONIC ULCER OF RT THIGH W/ F. Patient states she has foot alecia h. SIDE PERFORMED: Bilateral 1) Color flow is present and patency is documented in the following vessels. No DVT or SVT is noted . EIV Common Femoral Vein Deep Femoral Vein Femoral Vein Popliteal Vein Proximal Calf Veins Greater Saph Vein Upper Small Saph Vein 2) There is venous reflux noted at the following venous levels: Right mid Fem Vn. Mild reflux left EIV. Left GSV. Limited exam due to edema and body habitus IMPRESSION: No sonographic evidence of deep venous thrombosis nor superficial venous thrombosis in ei ther the visualized bilateral lower extremities. Venous reflux bilaterally as detailed above.
--- NOTE | 2019-09-04 12:34 | P.ARTDOP ---
Arterial Doppler LOWER EXTREMITY ARTERIAL DOPPLER: DATE OF SERVICE: 09/03/2019 Reason for study: Foot ulcer. Doppler waveforms: Multiphasic bilaterally throughout. Pulse volume recording: Normal configuration throughout. Pressure gradients: None. Ankle-brachial indices: Greater than 1 bilaterally. Toe pressures: 96 on the right, 118 on the left Impression: Normal flow patterns. Significantly elevated ankle pressures suggest nonhemodynamically significant wall disease..
== END | disposition home or self-care (01) ==
LOC: RADUSWWP 13:51
PROVIDERS: ATTEND Thoracic Surgery (Cardiothoracic Vascular Surgery)
DX: I87.2 Venous insufficiency (chronic) (peripheral) (principal); L97.112 Non-pressure chronic ulcer of right thigh with fat layer exposed; I89.0 Lymphedema, not elsewhere classified
CPT/HCPCS: 93923; 93970

== ENCOUNTER → 2019-09-11 | Outpatient (CLI) | payer MEDICARE ==
[2019-09-11 14:20] LABS: Anisocytosis Moderate; Basophils % (A) 1 %; Eosinophils # (A) 0.3 k/uL (0-0.7); Eosinophils % (A) 7 %; HCT 37.2 % (34.0-46.0); HGB 10.6 gm/dL (11.4-16.0); Hypochromasia Marked; Lymphocytes # (A) 0.4 k/uL (1.0-4.8); Lymphocytes % (A) 10 %; MCH 20.6 pg (25.0-35.0); MCHC 28.4 g/dL (31.0-37.0); MCV 72.6 fL (80.0-100.0); Mean Platelet Volume 7.5; Microcytosis Marked; Monocytes # (A) 0.3 k/uL (0-1.0); Monocytes % (A) 7 %; Neutrophils # (A) 3.2 k/uL (1.3-7.7); Neutrophils % (A) 73 %; Platelet Count 252 k/uL (150-450); RBC 5.12 m/uL (3.80-5.40); RDW 20.4 % (11.5-15.5); WBC 4.4 k/uL (3.8-10.6)
[2019-09-11 18:58] LABS: Ferritin 32.3 ng/mL (10.0-291.0)
[2019-09-11 19:06] LABS: % Iron Saturation 5.34 (12.00-45.00); African American GFR (CKD) 56.5 (60.0-200.0); Albumin 3.9 g/dL (3.80-4.90); Albumin/Globulin Ratio 1.56 (1.60-3.17); Anion Gap 12.1 mmol/L (4.00-12.00); BUN/Creat Ratio 12.73 Ratio (12.00-20.00); Calcium 8.7 mg/dL (8.7-10.3); Carbon Dioxide 25.9 mmol/L (21.6-31.8); Globulin 2.5 g/dL (1.6-3.3); Magnesium 1.8 mg/dL (1.5-2.4); Non-African American GFR(CKD) 48.7 (60.0-200.0); Phosphorus 4.1 mg/dL (2.4-5.1); Potassium 3.7 mmol/L (3.5-5.5); Total Bilirubin 0.9 mg/dL (0.3-1.2); Total Protein 6.4 g/dL (6.2-8.2); Uric Acid 6.9 mg/dL (2.9-7.7)
[2019-09-11 23:06] LABS: Hemoglobin A1C 6.8 % (4.0-6.0)
== END | disposition home or self-care (01) ==
LOC: LABWHC1 12:45
PROVIDERS: ATTEND Nurse Practitioner Family
DX: E11.65 Type 2 diabetes mellitus with hyperglycemia (principal); E03.9 Hypothyroidism, unspecified; E78.2 Mixed hyperlipidemia; E55.9 Vitamin D deficiency, unspecified; E53.9 Vitamin B deficiency, unspecified; I10 Essential (primary) hypertension; N39.0 Urinary tract infection, site not specified; N25.81 Secondary hyperparathyroidism of renal origin; M10.9 Gout, unspecified; R80.9 Proteinuria, unspecified; N17.9 Acute kidney failure, unspecified; D64.9 Anemia, unspecified
CPT/HCPCS: 36415; 80053; 82607; 82728; 83036; 83540; 83550; 83735; 83970; 84100; 84443; 84550; 85025

== ENCOUNTER → 2020-03-30 | Outpatient (CLI) | payer MEDICARE ==
[2020-03-30 15:44] LABS: Anisocytosis Slight; Basophils # (A) 0.1 k/uL (0-0.2); Basophils % (A) 1 %; Eosinophils # (A) 0.3 k/uL (0-0.7); Eosinophils % (A) 6 %; HCT 35.4 % (34.0-46.0); HGB 10.4 gm/dL (11.4-16.0); Hypochromasia Marked; Lymphocytes # (A) 0.5 k/uL (1.0-4.8); Lymphocytes % (A) 11 %; MCH 21.9 pg (25.0-35.0); MCHC 29.3 g/dL (31.0-37.0); MCV 74.5 fL (80.0-100.0); Mean Platelet Volume 7.3; Microcytosis Moderate; Monocytes # (A) 0.4 k/uL (0-1.0); Monocytes % (A) 9 %; Neutrophils % (A) 69 %; Platelet Count 191 k/uL (150-450); RBC 4.75 m/uL (3.80-5.40); RDW 17.6 % (11.5-15.5); WBC 4.4 k/uL (3.8-10.6)
[2020-03-31 02:00] LABS: ALT 11 U/L (8-44); AST 24 U/L (13-35); African American GFR (CKD) 50.8 (60.0-200.0); Alkaline Phosphatase 148 U/L (41-126); Calcium 8.9 mg/dL (8.7-10.3); Carbon Dioxide 26.1 mmol/L (21.6-31.8); Chloride 102 mmol/L (96-109); Chol/HDL Ratio 3.46; Cholesterol 121 mg/dL (0-200); Globulin 2.6 g/dL (1.6-3.3); Glucose 108 mg/dL (70-110); Non-African American GFR(CKD) 43.9 (60.0-200.0); Sodium 140 mmol/L (135-145); Total Protein 6.5 g/dL (6.2-8.2); Triglycerides <50.0 mg/dL (0.0-149.0)
== END | disposition home or self-care (01) ==
LOC: LABWHC1 14:35
PROVIDERS: ATTEND Internal Medicine
DX: I10 Essential (primary) hypertension (principal); E11.65 Type 2 diabetes mellitus with hyperglycemia; E03.9 Hypothyroidism, unspecified; E78.2 Mixed hyperlipidemia; E55.9 Vitamin D deficiency, unspecified; E53.9 Vitamin B deficiency, unspecified; R06.02 Shortness of breath
CPT/HCPCS: 36415; 80053; 80061; 82607; 84443; 85025

== ENCOUNTER → 2020-07-06 | Outpatient (CLI) | payer MEDICARE ==
[2020-07-06 16:57] LABS: Anisocytosis Slight; Basophils # (A) 0.1 k/uL (0-0.2); Basophils % (A) 1 %; Eosinophils # (A) 0.2 k/uL (0-0.7); Eosinophils % (A) 3 %; HCT 36.9 % (34.0-46.0); HGB 11.1 gm/dL (11.4-16.0); Hypochromasia Marked; Lymphocytes # (A) 0.4 k/uL (1.0-4.8); Lymphocytes % (A) 7 %; MCH 22.8 pg (25.0-35.0); Mean Platelet Volume 6.6; Microcytosis Moderate; Monocytes # (A) 0.5 k/uL (0-1.0); Monocytes % (A) 9 %; Neutrophils # (A) 4.6 k/uL (1.3-7.7); Neutrophils % (A) 79 %; Platelet Count 232 k/uL (150-450); RBC 4.86 m/uL (3.80-5.40); RDW 18.3 % (11.5-15.5); WBC 5.8 k/uL (3.8-10.6)
[2020-07-07 01:59] LABS: African American GFR (CKD) 56.5 (60.0-200.0); Albumin 3.6 g/dL (3.80-4.90); Albumin/Globulin Ratio 1.38 (1.60-3.17); BUN/Creat Ratio 8.18 Ratio (12.00-20.00); Calcium 8.4 mg/dL (8.7-10.3); Chol/HDL Ratio 2.77; Globulin 2.6 g/dL (1.6-3.3); LDL Cholesterol,Calculated 61.6 mg/dL (0.0-131.0); Non-African American GFR(CKD) 48.7 (60.0-200.0); Total Bilirubin 1.1 mg/dL (0.3-1.2); Total Protein 6.2 g/dL (6.2-8.2); VLDL Calculation 14.4 mg/dL (5.00-40.00)
[2020-07-07 07:44] LABS: Potassium 2.6 mmol/L (3.5-5.5)
== END | disposition home or self-care (01) ==
LOC: LABWHC1 14:46
PROVIDERS: ATTEND Internal Medicine
DX: E11.65 Type 2 diabetes mellitus with hyperglycemia (principal); E03.9 Hypothyroidism, unspecified; E78.2 Mixed hyperlipidemia; I10 Essential (primary) hypertension; E55.9 Vitamin D deficiency, unspecified; E53.9 Vitamin B deficiency, unspecified
CPT/HCPCS: 36415; 80053; 80061; 82607; 84443; 85025

== ENCOUNTER 2020-07-07 17:23 | Emergency (ER) | payer MEDICARE ==
--- NOTE | 2020-07-07 20:10 | ED ---
General Adult HPI - General Chief complaint: Recheck/Abnormal Lab/Rx Stated complaint: Low potassium Time Seen by Provider: 07/07/20 19:32 Source: patient Mode of arrival: wheelchair Limitations: no limitations - History of Present Illness Initial comments: Dictation was produced using [employer] dictation software. please excuse any grammatical, word or spelling errors. This patient was cared for during a federal and state declared state of emerge ncy secondary to Covid 19 Chief Complaint: 74-year-old female presents with abnormal lab History of Present Illness: Every 4-year-old female she presents today for abnormal lab. She states that her potassium was very low. It appears that this lab was drawn 2 days ago. According to EMR patient had his labs drawn by primary care physician. She was told today to come to the emergency department for IV potassium. Patient has no other complaints at this time. Patient does take Lasix. She also is supposedly on a potassium supplement. States she's been compliant with her medications. The ROS documented in this emergency department record has been reviewed and confirmed by me. Those systems with pertinent positive or negative responses have been documented in the HPI. All other systems are other negative and/or noncontributory. PHYSICAL EXAM: General Impression: Alert and oriented x3, not in acute distress HEENT: Normocephalic atraumatic, extra-ocular movements intact, pupils equal and reactive to light bilaterally, mucous membranes moist. Cardiovascular: Heart regular rate and rhythm Chest: Able to complete full sentences, no retractions, no tachypnea Abdomen: abdomen soft, non-tender, non-distended, no organomegaly Musculoskeletal: Pulses present and equal in all extremities, no peripheral edema Motor: no focal deficits noted Neurological: CN II-XII grossly intact, no focal motor or sensory deficits noted Skin: Intact with no visualized rashes Psych: Normal affect and mood ED course: 74 yo female presents with hypokalemia. Vital signs upon arrival are within acceptable limits. Chart review shows a potassium was 2.6. Patient does take Lasix. Patient's hypokalemia is likely secondary to furosemide. Laboratory was evaluation was obtained. Metabolic panel shows potassium 2.8. Magnesium 1.8. Patient given 20 and Q's of IV potassium, will grams of by mouth magnesium oxide and 40 mEq of by mouth potassium chloride. Patient instructed to take 40 equivalence potassium tomorrow and 40 mEq of potassium in the next day to follow-up with her primary care physician for potassium recheck. EKG interpretation: Ventricular rate 83, A. fib, QRS 92, QTC 427. No TN prolongation, no QTC prolongation, no ST or T-wave changes noted. EKG compared to 07/19/2019 showing no changes. Overall, this EKG is unremarkable - Related Data Home Medications Medication Instructions Recorded Confirmed Furosemide [Lasix] 80 mg PO DAILY 07/19/19 07/07/20 Ibuprofen [Motrin Ib] 200 mg PO Q8H PRN 07/07/20 07/07/20 Potassium Chloride ER [K-Dur 10] 10 meq PO DAILY 07/07/20 07/07/20 Previous Rx's Medication Instructions Recorded Apixaban [Eliquis] 5 mg PO BID 30 Days #60 tab 10/15/18 Metoprolol Tartrate [Lopressor] 50 mg PO BID tab 10/15/18 Allergies Allergy/AdvReac Type Severity Reaction Status Date / Time codeine Allergy Unknown Verified 07/07/20 17:27 latex Allergy Rash/Hives Verified 07/07/20 17:27 hydrocodone bitartrate AdvReac Nausea & Verified 07/07/20 17:27 [From Vicodin] Vomiting & Diarrhea prednisone AdvReac brought on Verified 07/07/20 17:27 diabetes cortisone injections AdvReac brought on Uncoded 07/07/20 17:27 diabetes sedatives AdvReac "I could Uncoded 07/07/20 17:27 not wake up" steroids AdvReac Hallucinati Uncoded 07/07/20 17:27 ons Review of Systems ROS Statement: Those systems with pertinent positive or pertinent negative responses have been documented in the HPI. ROS Other: All systems not noted in ROS Statement are negative. Past Medical History Past Medical History: Cancer, CVA/TIA, Diabetes Mellitus, Fibromyalgia, Osteoarthritis (OA), Pneumonia, Skin Disorder Additional Past Medical History / Comment(s): hx hiatal hernia, diarrhea, leakage of urine/urgency, "dry skin", anemia, skin cancer History of Any Multi-Drug Resistant Organisms: None Reported Past Surgical History: Appendectomy, Cholecystectomy, Heart Catheterization, Hysterectomy, Joint Replacement, Orthopedic Surgery, Pacemaker, Tonsillectomy, Tubal Ligation Additional Past Surgical History / Comment(s): cyril heel spurs, left shoulder rotator cuff, bone biopsy, cyril cataracts Past Anesthesia/Blood Transfusion Reactions: Previous Problems w/ Anesthesia, Family History of Problems w/ Anesthesia, Postoperative Nausea & Vomiting (PONV) Additional Past Anesthesia/Blood Transfusion Reaction / Comment(s): "could not wake for several days after knee replacement". brother PONV. Type of Cardiac Device: Permanent Pacemaker Device Placement Date:: 04/2009 Past Psychological History: No Psychological Hx Reported Smoking Status: Former smoker Past Alcohol Use History: None Reported Past Drug Use History: None Reported - Past Family History Father Family Medical History: Cancer Additional Family Medical History / Comment(s): skin Mother Family Medical History: Seizure Disorder General Exam Limitations: no limitations Course Vital Signs 07/07/20 07/07/20 07/07/20 17:24 20:35 22:00 Temperature 97.5 F L Pulse Rate 92 80 86 Respiratory 20 18 18 Rate Blood Pressure 143/66 155/68 140/80 O2 Sat by Pulse 96 98 98 Oximetry Medical Decision Making - Lab Data Result diagrams: 07/07/20 20:40 Lab Results 07/07/20 07/07/20 Range/Units 20:40 20:40 Sodium 134 L (137-145) mmol/L Potassium 2.8 L (3.5-5.1) mmol/L Chloride 96 L (98-107) mmol/L Carbon Dioxide 32 H (22-30) mmol/L Anion Gap 6 mmol/L BUN 9 (7-17) mg/dL Creatinine 0.82 (0.52-1.04) mg/dL Est GFR (CKD-EPI)AfAm 81 (>60 ml/min/1.73 sqM) Est GFR (CKD-EPI)NonAf 70 (>60 ml/min/1.73 sqM) Glucose 107 H (74-99) mg/dL Calcium 8.3 L (8.4-10.2) mg/dL Magnesium 1.8 (1.6-2.3) mg/dL Disposition Clinical Impression: Hypokalemia Disposition: HOME SELF-CARE Condition: Good Instructions (If sedation given, give patient instructions): Hypokalemia (ED) Additional Instructions: 1. You were evaluated treated for low potassium. 2. You are instructed to take 40 mEq of potassium tomorrow on 07/08/2020 around dinnertime, and another 40 mEq of potassium the day after. Starting Monday resume your normal potassium pills (10mg daily) as prescribed 3. Please follow-up with your primary care physician later this week for a potassium recheck. Is patient prescribed a controlled substance at d/c from ED?: No Referrals: Kamaljit Krause MD [Primary Care Provider] - 1-2 days Time of Disposition: 22:39
[2020-07-07 20:39] VITALS: RESP 18
[2020-07-07 21:38] LABS: Calcium 8.3 mg/dL (8.4-10.2); Potassium 2.8 mmol/L (3.5-5.1)
[2020-07-07] MEDS ORDERED: POTASSIUM CHLORIDE 20 MEQ in WATER FOR INJECTION 1 100ML.BAG IVPB STA (21:49)
[2020-07-07] MEDS ORDERED: POTASSIUM CHLORIDE ER 20 MEQ TAB.ER PO STA (21:50)
[2020-07-07] MEDS ORDERED: MAGNESIUM OXIDE 400 MG TAB PO STA (21:50)
[2020-07-08 00:32] VITALS: BP 145/85; PULSE 94; TEMP 97.9
== END 2020-07-08 00:32 | disposition home or self-care (01) ==
LOC: EC 17:23
DX: E87.6 Hypokalemia (principal); I48.91 Unspecified atrial fibrillation; M19.90 Unspecified osteoarthritis, unspecified site; Z79.899 Other long term (current) drug therapy; Z88.5 Allergy status to narcotic agent; Z88.8 Allergy status to other drugs, medicaments and biological substances; Z91.040 Latex allergy status; Z87.891 Personal history of nicotine dependence; Z86.73 Personal history of transient ischemic attack (TIA), and cerebral infarction without residual deficits; Z85.828 Personal history of other malignant neoplasm of skin; Z96.659 Presence of unspecified artificial knee joint
CPT/HCPCS: 36415; 93005; 80048; 83735; 99285; 96365; 96366; J3480

== ENCOUNTER 2020-09-30 15:32 | Inpatient (IN) | payer MEDICARE ==
[2020-09-30] MEDS ORDERED: FUROSEMIDE 10 MG/ML 4 ML VIAL IV STA (16:03)
--- NOTE | 2020-09-30 16:08 | ED ---
General Adult HPI - General Chief complaint: Extremity Problem,Nontraumatic Stated complaint: bilat arm swelling, SOB Time Seen by Provider: 09/30/20 15:49 Source: patient, family, RN notes reviewed Mode of arrival: wheelchair Limitations: no limitations - History of Present Illness Initial comments: Patient is a pleasant 75-year-old female presenting to the emergency department with complaints of edema. Patient does have history of similar symptoms previous sleep. Patient has had some vomiting the past few days and has missed a few of her doses of medications. Patient complains of increased diffuse edema, somewhat more of her upper arms. This is an acute on chronic condition. Patient does feel somewhat short of breath. Patient has been fatigued. - Related Data Home Medications Medication Instructions Recorded Confirmed Furosemide [Lasix] 80 mg PO DAILY PRN 07/19/19 09/30/20 Ibuprofen [Motrin Ib] 200 mg PO Q8H PRN 07/07/20 09/30/20 Potassium Chloride [Klor-Con 20] 20 meq PO DAILY PRN 09/30/20 09/30/20 Tolterodine Tartrate [Detrol LA] 4 mg PO DAILY 09/30/20 09/30/20 traMADol HCL 50 mg PO TID PRN 09/30/20 09/30/20 Previous Rx's Medication Instructions Recorded Apixaban [Eliquis] 5 mg PO BID 30 Days #60 tab 10/15/18 Metoprolol Tartrate [Lopressor] 50 mg PO BID tab 10/15/18 Allergies Allergy/AdvReac Type Severity Reaction Status Date / Time codeine Allergy Unknown Verified 09/30/20 16:32 latex Allergy Rash/Hives Verified 09/30/20 16:32 hydrocodone bitartrate AdvReac Nausea & Verified 09/30/20 16:32 [From Vicodin] Vomiting & Diarrhea prednisone AdvReac brought on Verified 09/30/20 16:32 diabetes cortisone injections AdvReac brought on Uncoded 09/30/20 16:32 diabetes sedatives AdvReac "I could Uncoded 09/30/20 16:32 not wake up" steroids AdvReac Hallucinati Uncoded 09/30/20 16:32 ons Review of Systems ROS Statement: Those systems with pertinent positive or pertinent negative responses have been documented in the HPI. ROS Other: All systems not noted in ROS Statement are negative. Constitutional: Denies: fever Eyes: Denies: eye pain ENT: Denies: ear pain Respiratory: Reports: cough (Minimal), dyspnea Cardiovascular: Denies: chest pain Endocrine: Reports: fatigue Gastrointestinal: Denies: abdominal pain Genitourinary: Denies: dysuria Musculoskeletal: Denies: back pain Skin: Denies: rash Neurological: Denies: weakness Past Medical History Past Medical History: Cancer, CVA/TIA, Diabetes Mellitus, Fibromyalgia, Osteoarthritis (OA), Pneumonia, Skin Disorder Additional Past Medical History / Comment(s): hx hiatal hernia, diarrhea, leakage of urine/urgency, "dry skin", anemia, skin cancer History of Any Multi-Drug Resistant Organisms: None Reported Past Surgical History: Appendectomy, Cholecystectomy, Heart Catheterization, Hysterectomy, Joint Replacement, Orthopedic Surgery, Pacemaker, Tonsillectomy, Tubal Ligation Additional Past Surgical History / Comment(s): cyril heel spurs, left shoulder rotator cuff, bone biopsy, cyril cataracts Past Anesthesia/Blood Transfusion Reactions: Previous Problems w/ Anesthesia, Family History of Problems w/ Anesthesia, Postoperative Nausea & Vomiting (PONV) Additional Past Anesthesia/Blood Transfusion Reaction / Comment(s): "could not wake for several days after knee replacement". brother PONV. Type of Cardiac Device: Permanent Pacemaker Device Placement Date:: 04/2009 Past Psychological History: No Psychological Hx Reported Smoking Status: Former smoker Past Alcohol Use History: None Reported Past Drug Use History: None Reported - Past Family History Father Family Medical History: Cancer Additional Family Medical History / Comment(s): skin Mother Family Medical History: Seizure Disorder General Exam Limitations: no limitations General appearance: alert, in no apparent distress Head exam: Present: normocephalic Eye exam: Present: normal appearance ENT exam: Present: normal oropharynx Neck exam: Present: normal inspection Respiratory exam: Present: normal lung sounds bilaterally Cardiovascular Exam: Present: irregular rhythm, systolic murmur GI/Abdominal exam: Present: soft. Absent: tenderness Extremities exam: Present: pedal edema, other (+3/4 edema in all extremities). Absent: calf tenderness Back exam: Present: normal inspection Neurological exam: Present: alert Psychiatric exam: Present: normal affect, normal mood Skin exam: Present: normal color Course Vital Signs 09/30/20 09/30/20 09/30/20 15:43 16:22 18:25 Temperature 97.9 F 97.6 F 98.1 F Pulse Rate 91 94 78 Respiratory 16 18 18 Rate Blood Pressure 119/75 117/68 94/73 O2 Sat by Pulse 95 96 95 Oximetry EKG Findings - EKG Comments: EKG Findings:: A. fib with rate of 90. QRS 78. QT 342. QTC 418. Left axis. Low QRS voltage. Poor R-wave progression. No acute ST change. Medical Decision Making - Medical Decision Making Patient reevaluated and updated. Case discussed with Dr. Krause, who will admit his patient. - Lab Data Result diagrams: 09/30/20 18:02 09/30/20 18:02 Lab Results 09/30/20 09/30/20 09/30/20 Range/Units 18:02 18:02 18:02 WBC 4.5 (3.8-10.6) k/uL RBC 4.85 (3.80-5.40) m/uL Hgb 10.8 L (11.4-16.0) gm/dL Hct 36.3 (34.0-46.0) % MCV 74.9 L (80.0-100.0) fL MCH 22.3 L (25.0-35.0) pg MCHC 29.8 L (31.0-37.0) g/dL RDW 17.6 H (11.5-15.5) % Plt Count 166 (150-450) k/uL MPV 6.9 Neutrophils % 79 % Lymphocytes % 7 % Monocytes % 8 % Eosinophils % 5 % Basophils % 1 % Neutrophils # 3.5 (1.3-7.7) k/uL Lymphocytes # 0.3 L (1.0-4.8) k/uL Monocytes # 0.3 (0-1.0) k/uL Eosinophils # 0.2 (0-0.7) k/uL Basophils # 0.1 (0-0.2) k/uL Hypochromasia Marked Poikilocytosis Slight Anisocytosis Slight Microcytosis Slight PT 12.6 H (9.0-12.0) sec INR 1.2 H (<1.2) APTT 26.7 (22.0-30.0) sec Sodium 137 (137-145) mmol/L Potassium 3.4 L (3.5-5.1) mmol/L Chloride 104 (98-107) mmol/L Carbon Dioxide 24 (22-30) mmol/L Anion Gap 9 mmol/L BUN 18 H (7-17) mg/dL Creatinine 1.44 H (0.52-1.04) mg/dL Est GFR (CKD-EPI)AfAm 41 (>60 ml/min/1.73 sqM) Est GFR (CKD-EPI)NonAf 35 (>60 ml/min/1.73 sqM) Glucose 107 H (74-99) mg/dL Calcium 8.6 (8.4-10.2) mg/dL Magnesium 1.7 (1.6-2.3) mg/dL Total Bilirubin 1.0 (0.2-1.3) mg/dL AST 35 (14-36) U/L ALT 19 (4-34) U/L Alkaline Phosphatase 160 H (38-126) U/L Troponin I (0.000-0.034) ng/mL NT-Pro-B Natriuret Pep pg/mL Total Protein 6.9 (6.3-8.2) g/dL Albumin 3.2 L (3.5-5.0) g/dL TSH 6.530 H (0.465-4.680) mIU/L Free T4 1.80 (0.78-2.19) ng/dL Free T3 pg/mL 2.6 L (2.8-5.3) pg/ml 09/30/20 09/30/20 Range/Units 18:02 18:02 WBC (3.8-10.6) k/uL RBC (3.80-5.40) m/uL Hgb (11.4-16.0) gm/dL Hct (34.0-46.0) % MCV (80.0-100.0) fL MCH (25.0-35.0) pg MCHC (31.0-37.0) g/dL RDW (11.5-15.5) % Plt Count (150-450) k/uL MPV Neutrophils % % Lymphocytes % % Monocytes % % Eosinophils % % Basophils % % Neutrophils # (1.3-7.7) k/uL Lymphocytes # (1.0-4.8) k/uL Monocytes # (0-1.0) k/uL Eosinophils # (0-0.7) k/uL Basophils # (0-0.2) k/uL Hypochromasia Poikilocytosis Anisocytosis Microcytosis PT (9.0-12.0) sec INR (<1.2) APTT (22.0-30.0) sec Sodium (137-145) mmol/L Potassium (3.5-5.1) mmol/L Chloride (98-107) mmol/L Carbon Dioxide (22-30) mmol/L Anion Gap mmol/L BUN (7-17) mg/dL Creatinine (0.52-1.04) mg/dL Est GFR (CKD-EPI)AfAm (>60 ml/min/1.73 sqM) Est GFR (CKD-EPI)NonAf (>60 ml/min/1.73 sqM) Glucose (74-99) mg/dL Calcium (8.4-10.2) mg/dL Magnesium (1.6-2.3) mg/dL Total Bilirubin (0.2-1.3) mg/dL AST (14-36) U/L ALT (4-34) U/L Alkaline Phosphatase (38-126) U/L Troponin I 0.015 (0.000-0.034) ng/mL NT-Pro-B Natriuret Pep 4140 pg/mL Total Protein (6.3-8.2) g/dL Albumin (3.5-5.0) g/dL TSH (0.465-4.680) mIU/L Free T4 (0.78-2.19) ng/dL Free T3 pg/mL (2.8-5.3) pg/ml - Radiology Data Radiology results: image reviewed (Chest x-ray shows evidence of congestive heart failure and pulmonary edema, worse from previous) Disposition Clinical Impression: CHF (congestive heart failure) Disposition: ADMITTED IP TO THIS HOSP Is patient prescribed a controlled substance at d/c from ED?: No Referrals: Kamaljit Krause MD [Primary Care Provider] - 1-2 days Decision Time: 19:09
--- NOTE | 2020-09-30 17:55 | XR ---
EXAMINATION TYPE: XR chest 2V DATE OF EXAM: 09/30/2020 COMPARISON: 07/19/2019 HISTORY: Difficulty breathing. Arm swelling. TECHNIQUE: FINDINGS: Heart is enlarged. There is probably vascular congestion and pulmonary interstitial edema. There is left axillary pacemaker. There is slight blunting of the costophrenic angles. IMPRESSION: Congestive heart failure and pulmonary edema appears worse than old exam.
[2020-09-30 18:09] LABS: Anisocytosis Slight; Basophils # (A) 0.1 k/uL (0-0.2); Basophils % (A) 1 %; Eosinophils # (A) 0.2 k/uL (0-0.7); Eosinophils % (A) 5 %; HCT 36.3 % (34.0-46.0); HGB 10.8 gm/dL (11.4-16.0); Hypochromasia Marked; Lymphocytes # (A) 0.3 k/uL (1.0-4.8); Lymphocytes % (A) 7 %; MCH 22.3 pg (25.0-35.0); MCHC 29.8 g/dL (31.0-37.0); MCV 74.9 fL (80.0-100.0); Mean Platelet Volume 6.9; Microcytosis Slight; Monocytes # (A) 0.3 k/uL (0-1.0); Monocytes % (A) 8 %; Neutrophils # (A) 3.5 k/uL (1.3-7.7); Neutrophils % (A) 79 %; Platelet Count 166 k/uL (150-450); Poikilocytosis Slight; RBC 4.85 m/uL (3.80-5.40); RDW 17.6 % (11.5-15.5); WBC 4.5 k/uL (3.8-10.6)
[2020-09-30 18:18] LABS: INR 1.2 (<1.2); Partial Thromboplastin Time 26.7 sec (22.0-30.0); Prothrombin Time 12.6 sec (9.0-12.0)
[2020-09-30 18:24] LABS: Albumin 3.2 g/dL (3.5-5.0); Calcium 8.6 mg/dL (8.4-10.2); Magnesium 1.7 mg/dL (1.6-2.3); Potassium 3.4 mmol/L (3.5-5.1); Total Protein 6.9 g/dL (6.3-8.2)
[2020-09-30 18:40] LABS: T4, Free (Free Thyroxine) 1.8 ng/dL (0.78-2.19)
[2020-09-30] MEDS ORDERED: ASPIRIN 325 MG TAB PO STA (19:09)
[2020-09-30] MEDS ORDERED: NITROGLYCERIN OINT 1 INCH/GM PACKET TOPICAL SCH (22:00)
[2020-10-01] MEDS ORDERED: Potassium Replacement Protocol 1 EACH MISC MISCELLANE PRN (00:34)
[2020-10-01] MEDS: POTASSIUM CHLORIDE ER 20 MEQ TAB.ER PO SCH ×3 (01:26→05:55)
[2020-10-01] MEDS: FUROSEMIDE 10 MG/ML 4 ML VIAL IV SCH ×2 (03:28→05:56)
[2020-10-01] MEDS ORDERED: IBUPROFEN 200 MG TAB PO PRN (04:00)
[2020-10-01] MEDS ORDERED: ASPIRIN 325 MG TAB PO SCH (09:00)
[2020-10-01] MEDS: OXYBUTYNIN XL 5 MG TAB.ER.24 PO SCH (09:10)
[2020-10-01] MEDS: APIXABAN 5 MG TAB PO SCH ×2 (09:11→21:38)
[2020-10-01] MEDS: METOPROLOL TARTRATE 50 MG TAB PO SCH ×2 (09:11→21:38)
[2020-10-01] MEDS: LEVOTHYROXINE 25 MCG TAB PO SCH (09:21)
--- NOTE | 2020-10-01 09:53 | P.CRDCN ---
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 Patient also has severe tricuspid regurgitation. Her echocardiogram in the past showed an ejection fraction about 60-65% with moderate symmetrical hypertrophy. Patient also has severe pulmonary hypertension. Patient now comes with complaints of increasing shortness of breath and congestion. Denies any chest pain. Patient has been on Lasix and she claims she has been taking it regularly, though patient has habit of stopping taking them on occasion. Chest x-ray on admission showed evidence of congestion. Patient has chronic leg edema. Her hemoglobin is stable around 10.1. Her proBNP is 4000. Patient is currently on IV Lasix and seemed to be feeling better. We'll get an echocardiogram to assess LV function. We'll continue with IV Lasix for another 24 hours. Follow elect lites closely. Further recommendations depend upon the critical course. If there is any LV dysfunction, we may consider adding small dose of hydralazine and nitrates Review of Systems As per the chart Past Medical History Past Medical History: Cancer, CVA/TIA, Diabetes Mellitus, Fibromyalgia, Osteoarthritis (OA), Pneumonia, Skin Disorder Additional Past Medical History / Comment(s): hx hiatal hernia, diarrhea, leakage of urine/urgency, "dry skin", anemia, skin cancer History of Any Multi-Drug Resistant Organisms: None Reported Past Surgical History: Appendectomy, Cholecystectomy, Heart Catheterization, Hys terectomy, Joint Replacement, Orthopedic Surgery, Pacemaker, Tonsillectomy, Tubal Ligation Additional Past Surgical History / Comment(s): cyril heel spurs, left shoulder rotator cuff, bone biopsy, cyril cataracts Past Anesthesia/Blood Transfusion Reactions: Previous Problems w/ Anesthesia, Family History of Problems w/ Anesthesia, Postoperative Nausea & Vomiting (PONV) Additional Past Anesthesia/Blood Transfusion Reaction / Comment(s): "could not wake for several days after knee replacement". brother PONV. Type of Cardiac Device: Permanent Pacemaker Device Placement Date:: 04/2009 Past Psychological History: No Psychological Hx Reported Additional Psychological History / Comment(s): Pt resides with her spouse. She has a cane which she uses prn. She drives. Smoking Status: Former smoker Past Alcohol Use History: None Reported Additional Past Alcohol Use History / Comment(s): Pt started smoking in 1960 and quit in 1961 Past Drug Use History: None Reported - Past Family History Father Family Medical History: Cancer Additional Family Medical History / Comment(s): skin Mother Family Medical History: Seizure Disorder Medications and Allergies Home Medications Medication Instructions Recorded Confirmed Type Apixaban [Eliquis] 5 mg PO BID 30 Days #60 tab 10/15/18 09/30/20 Rx Metoprolol Tartrate [Lopressor] 50 mg PO BID tab 10/15/18 09/30/20 Rx Furosemide [Lasix] 80 mg PO DAILY PRN 07/19/19 09/30/20 History Ibuprofen [Motrin Ib] 200 mg PO Q8H PRN 07/07/20 09/30/20 History Potassium Chloride [Klor-Con 20] 20 meq PO DAILY PRN 09/30/20 09/30/20 History Tolterodine Tartrate [Detrol LA] 4 mg PO DAILY 09/30/20 09/30/20 History traMADol HCL 50 mg PO TID PRN 09/30/20 09/30/20 History Allergies Allergy/AdvReac Type Severity Reaction Status Date / Time codeine Allergy Unknown Verified 09/30/20 16:32 latex Allergy Rash/Hives Verified 09/30/20 16:32 hydrocodone bitartrate AdvReac Nausea & Verified 09/30/20 16:32 [From Vicodin] Vomiting & Diarrhea prednisone AdvReac brought on Verified 09/30/20 16:32 diabetes cortisone injections AdvReac brought on Uncoded 09/30/20 16:32 diabetes sedatives AdvReac "I could Uncoded 09/30/20 16:32 not wake up" steroids AdvReac Hallucinati Uncoded 09/30/20 16:32 ons Physical Exam Vitals: Vital Signs Temp Pulse Pulse Resp BP BP Pulse Ox 10/01/20 08:31 97.5 F L 95 18 114/66 94 L 10/01/20 01:49 97.8 F 92 16 137/77 94 L 09/30/20 21:58 97.5 F L 86 16 99/65 96 09/30/20 20:24 90 18 102/79 95 09/30/20 18:25 98.1 F 78 18 94/73 95 09/30/20 16:22 97.6 F 94 18 117/68 96 09/30/20 15:43 97.9 F 91 16 119/75 95 Intake and Output 09/30/20 10/01/20 10/01/20 22:59 06:59 14:59 Output Total 700 250 Balance -700 -250 Output: Urine 700 250 Other: # Voids 2 1 Weight 105 kg GENERAL EXAM: Patient is alert and oriented and doesn't appear to be in any acute distress HEENT: Normocephalic. Normal reaction of pupils, equal size, normal range of extraocular motion. No erythema or exudates in the throat. NECK: No masses, no nuchal rigidity. CHEST: No chest wall deformity. LUNGS: Equal air entry with no crackles or wheeze. HEART: S1 and S2 normal . Systolic murmur heard in the aortic area. Irregular heart sounds ABDOMEN: No hepatosplenomegaly, normal bowel sounds, no guarding or rigidity. SKIN: No rashes CENTRAL NERVOUS SYSTEM: No focal deficits. EXTREMITIES: Chronic edema with the chronic stasis changes Results 09/30/20 18:02 09/30/20 18:02 Cardiac Enzymes 09/30/20 09/30/20 Range/Units 18:02 18: AST 35 (14-36) U/L Troponin I 0.015 (0.000-0.034) ng/mL Coagulation 09/30/20 Range/Units 18:02 PT 12.6 H (9.0-12.0) sec APTT 26.7 (22.0-30.0) sec CBC 09/30/20 Range/Units 18:02 WBC 4.5 (3.8-10.6) k/uL RBC 4.85 (3.80-5.40) m/uL Hgb 10.8 L (11.4-16.0) gm/dL Hct 36.3 (34.0-46.0) % Plt Count 166 (150-450) k/uL Comprehensive Metabolic Panel 09/30/20 Range/Units 18:02 Sodium 137 (137-145) mmol/L Potassium 3.4 L (3.5-5.1) mmol/L Chloride 104 (98-107) mmol/L Carbon Dioxide 24 (22-30) mmol/L BUN 18 H (7-17) mg/dL Creatinine 1.44 H (0.52-1.04) mg/dL Glucose 107 H (74-99) mg/dL Calcium 8.6 (8.4-10.2) mg/dL AST 35 (14-36) U/L ALT 19 (4-34) U/L Alkaline Phosphatase 160 H (38-126) U/L Total Protein 6.9 (6.3-8.2) g/dL Albumin 3.2 L (3.5-5.0) g/dL Current Medications Generic Name Dose Route Start Last Admin Trade Name Freq PRN Reason Stop Dose Admin Apixaban 5 mg 10/01/20 09:00 10/01/20 09:11 Apixaban 5 Mg Tab PO 5 mg BID LOLY Administration Furosemide 40 mg 10/01/20 03:00 10/01/20 05:56 Furosemide 10 Mg/Ml 4 Ml Vial IV Not Given Q8H LOLY Levothyroxine Sodium 25 mcg 10/01/20 09:00 10/01/20 09:21 Levothyroxine 25 Mcg Tab PO 25 mcg DAILY@0630 LOLY Administration Metoprolol Tartrate 50 mg 10/01/20 09:00 10/01/20 09:11 Metoprolol Tartrate 50 Mg Tab PO 50 mg BID LOLY Administration Miscellaneous Information 1 each 10/01/20 00:34 Potassium Replacement Protocol 1 Each Misc MISCELLANE DAILY PRN Per Protocol Protocol Oxybutynin Chloride 10 mg 10/01/20 09:00 10/01/20 09:10 Oxybutynin Xl 5 Mg Tab.Er.24 PO 10 mg DAILY LOLY Administration Pantoprazole Sodium 40 mg 10/02/20 07:30 Pantoprazole 40 Mg Tablet PO [id number] LOLY Tramadol HCl 50 mg 10/01/20 00:18 Tramadol 50 Mg Tab PO TID PRN Pain Intake and Output 09/30/20 10/01/20 10/01/20 22:59 06:59 14:59 Output Total 700 250 Balance -700 -250 Output: Urine 700 250 Other: # Voids 2 1 Weight 105 kg 09/30/20 18:02 09/30/20 18:02 EKG Interpretations (text) Atrial fibrillation with moderately rapid ventricular response Assessment and Plan Assessment: Acute on chronic diastolic CHF. Chronic atrial fibrillation. Hypertrophic cardiomyopathy. History of permanent pacemaker implantation. Chronic pulmonary hypertension and peripheral edema Plan: Continue with IV diuretics. Get an echocardiogram to assess LV function. May add a small dose of hydralazine and nitrates. Prognosis is guarded
[2020-10-01] MEDS ORDERED: IOPAMIDOL CONTRAST (ORAL USE) VIAL PO PRN ×2 (10:00→13:30)
--- NOTE | 2020-10-01 10:54 | P.NPCON ---
History of Present Illness - Reason for Consult acute renal failure - History of Present Illness Reason for admission: Acute kidney injury History of present illness: Patient is a 75-year-old female seen in renal consultation for acute kidney injury. Patient baseline creatinine is near 1 and is elevated at 1.44 as of yesterday. Patient presented to the hospital with shortness of breath and lower extremity edema. Patient states she was taking Lasix at home but the edema was progressively worsening and she came to the hospital. She also complains of vomiting intermittently over the last 2 weeks. No significant diarrhea. Chest x-ray suggestive of fluid overload. Echocardiogram from June 2019 revealed ejection fraction of 60-65% with severe tricuspid regurgitation and severe pulmonary hypertension. She denies any gross hematuria. No chest pain. Blood pressure stable. She does admit to taking ibuprofen 1-2 times daily [id number]. No history of diabetes. Denies family history of renal disease. No fever or chills. Vital signs are stable. General: The patient appeared well nourished and normally developed. HEENT: Head exam is unremarkable. Neck is without jugular venous distension. LUNGS: Breath sounds decreased. HEART: Rate and Rhythm are regular. ABDOMEN: Soft, nontender. Obese. EXTREMITITES: 2+ edema. Chronic changes noted. Past Medical History Past Medical History: Cancer, CVA/TIA, Diabetes Mellitus, Fibromyalgia, Ost eoarthritis (OA), Pneumonia, Skin Disorder Additional Past Medical History / Comment(s): hx hiatal hernia, diarrhea, leakage of urine/urgency, "dry skin", anemia, skin cancer History of Any Multi-Drug Resistant Organisms: None Reported Past Surgical History: Appendectomy, Cholecystectomy, Heart Catheterization, Hysterectomy, Joint Replacement, Orthopedic Surgery, Pacemaker, Tonsillectomy, Tubal Ligation Additional Past Surgical History / Comment(s): cyril heel spurs, left shoulder rotator cuff, bone biopsy, cyril cataracts Past Anesthesia/Blood Transfusion Reactions: Previous Problems w/ Anesthesia, Family History of Problems w/ Anesthesia, Postoperative Nausea & Vomiting (PONV) Additional Past Anesthesia/Blood Transfusion Reaction / Comment(s): "could not wake for several days after knee replacement". brother PONV. Type of Cardiac Device: Permanent Pacemaker Device Placement Date:: 04/2009 Past Psychological History: No Psychological Hx Reported Additional Psychological History / Comment(s): Pt resides with her spouse. She has a cane which she uses prn. She drives. Smoking Status: Former smoker Past Alcohol Use History: None Reported Additional Past Alcohol Use History / Comment(s): Pt started smoking in 1960 and quit in 1961 Past Drug Use History: None Reported - Past Family History Father Family Medical History: Cancer Additional Family Medical History / Comment(s): skin Mother Family Medical History: Seizure Disorder Medications and Allergies Home Medications Medication Instructions Recorded Confirmed Type Apixaban [Eliquis] 5 mg PO BID 30 Days #60 tab 10/15/18 09/30/20 Rx Metoprolol Tartrate [Lopressor] 50 mg PO BID tab 10/15/18 09/30/20 Rx Furosemide [Lasix] 80 mg PO DAILY PRN 07/19/19 09/30/20 History Ibuprofen [Motrin Ib] 200 mg PO Q8H PRN 07/07/20 09/30/20 History Potassium Chloride [Klor-Con 20] 20 meq PO DAILY PRN 09/30/20 09/30/20 History Tolterodine Tartrate [Detrol LA] 4 mg PO DAILY 09/30/20 09/30/20 History traMADol HCL 50 mg PO TID PRN 09/30/20 09/30/20 History Allergies Allergy/AdvReac Type Severity Reaction Status Date / Time codeine Allergy Unknown Verified 09/30/20 16:32 latex Allergy Rash/Hives Verified 09/30/20 16:32 hydrocodone bitartrate AdvReac Nausea & Verified 09/30/20 16:32 [From Vicodin] Vomiting & Diarrhea prednisone AdvReac brought on Verified 09/30/20 16:32 diabetes cortisone injections AdvReac brought on Uncoded 09/30/20 16:32 diabetes sedatives AdvReac "I could Uncoded 09/30/20 16:32 not wake up" steroids AdvReac Hallucinati Uncoded 09/30/20 16:32 ons Physical Exam Vitals: Vital Signs Temp Pulse Pulse Resp BP BP Pulse Ox 10/01/20 08:31 97.5 F L 95 18 114/66 94 L 10/01/20 01:49 97.8 F 92 16 137/77 94 L 09/30/20 21:58 97.5 F L 86 16 99/65 96 09/30/20 20:24 90 18 102/79 95 09/30/20 18:25 98.1 F 78 18 94/73 95 09/30/20 16:22 97.6 F 94 18 117/68 96 09/30/20 15:43 97.9 F 91 16 119/75 95 Intake and Output 09/30/20 10/01/20 10/01/20 22:59 06:59 14:59 Output Total 700 250 Balance -700 -250 Output: Urine 700 250 Other: # Voids 2 1 Weight 105 kg Results - Lab Results Most recent lab results Calcium 8.6 mg/dL (8.4-10.2) 09/30/20 18:02 Magnesium 1.7 mg/dL (1.6-2.3) 09/30/20 18:02 09/30/20 18:02 09/30/20 18:02 Assessment and Plan Plan: Assessment: 1. Acute kidney injury mostly prerenal secondary to cardiorenal syndrome. Creatinine 1.44 today. Baseline creatinine near 1. 2. Acute on chronic diastolic CHF with severe tricuspid regurgitation and pulmonary hypertension. 3. Hypokalemia secondary to diuresis. 4. Volume overload. Plan: Stop IV Lasix and start Lasix drip. Add metolazone. 1500 mL fluid restriction and low-salt diet. Potassium was replaced. Continue to monitor renal function and urine output. Repeat labs today. Check urinalysis. Follow kidney ultrasound. Follow-up CT and echocardiogram. Thank you for the consultation. I will continue to follow the patient with you during her hospital stay.
[2020-10-01 11:07] VITALS: BMI 48.4
--- NOTE | 2020-10-01 11:32 | P.CONS ---
History of Present Illness - Reason for Consult Consult date: 10/01/20 wound care - History of Present Illness 75-year-old patient being seen by the wound care center on for venous insufficiency. At this time patient has no open ulcerations. Bilateral lower extremities are edematous with dry scaly skin. There is no drainage noted. Patient states that her this is normal for her like appearance. Patient's past medical history includes venous insufficiency, CVA, diabetes mellitus, fibromyalgia, osteoarthritis, pneumonia, skin cancer. She is a former smoker who stopped smoking in 1961 with 1 year smoking. She resides with her spouse uses a cane. Review Of Systems: Constitutional: No fever, no chills, no night sweats. No weight change. No weakness, fatigue or lethargy. No daytime sleepiness. Integumentary: Denies wounds, no lesions. No rash or pruritus. No unusual br uising. No change in hair or nails. Physical exam: General Appearance: Alert, cooperative, no distress, appears stated age. Skin: See HPI all other Skin color, texture, tugor normal, no rashes or lesions. Neurologic: Alert oriented x3 Assessment/plan: 1. Venous insufficiency: Apply bag balm and Tubigrip daily. Continue to elevate legs at least 30 minutes a day 3 times a day. Avoid standing for long periods. If any open ulcerations occur patient may come to the outpatient wound care center. 2. Chronic hypertension with inflammation bilateral extremities Thank you kindly for the consultation and the questions please contact the wound care center. DNP note has been reviewed and discussed with Dr. Abdi and the impression and plan of care has been directed as dictated. Past Medical History Past Medical History: Cancer, CVA/TIA, Diabetes Mellitus, Fibromyalgia, Osteoarthritis (OA), Pneumonia, Skin Disorder Additional Past Medical History / Comment(s): hx hiatal hernia, diarrhea, leakage of urine/urgency, "dry skin", anemia, skin cancer History of Any Multi-Drug Resistant Organisms: None Reported Past Surgical History: Appendectomy, Cholecystectomy, Heart Catheterization, Hysterectomy, Joint Replacement, Orthopedic Surgery, Pacemaker, Tonsillectomy, Tubal Ligation Additional Past Surgical History / Comment(s): cyril heel spurs, left shoulder rotator cuff, bone biopsy, cyril cataracts Past Anesthesia/Blood Transfusion Reactions: Previous Problems w/ Anesthesia, Family History of Problems w/ Anesthesia, Postoperative Nausea & Vomiting (PONV) Additional Past Anesthesia/Blood Transfusion Reaction / Comm: "could not wake for several days after knee replacement". brother PONV. Type of Cardiac Device: Permanent Pacemaker Device Placement Date:: 04/2009 Past Psychological History: No Psychological Hx Reported Additional Psychological History / Comment(s): Pt resides with her spouse. She has a cane which she uses prn. She drives. Smoking Status: Former smoker Past Alcohol Use History: None Reported Additional Past Alcohol Use History / Comment(s): Pt started smoking in 1960 and quit in 1961 Past Drug Use History: None Reported - Past Family History Father Family Medical History: Cancer Additional Family Medical History / Comment(s): skin Mother Family Medical History: Seizure Disorder Medications and Allergies Home Medications Medication Instructions Recorded Confirmed Type Apixaban [Eliquis] 5 mg PO BID 30 Days #60 tab 10/15/18 09/30/20 Rx Metoprolol Tartrate [Lopressor] 50 mg PO BID tab 10/15/18 09/30/20 Rx Furosemide [Lasix] 80 mg PO DAILY PRN 07/19/19 09/30/20 History Ibuprofen [Motrin Ib] 200 mg PO Q8H PRN 07/07/20 09/30/20 History Potassium Chloride [Klor-Con 20] 20 meq PO DAILY PRN 09/30/20 09/30/20 History Tolterodine Tartrate [Detrol LA] 4 mg PO DAILY 09/30/20 09/30/20 History traMADol HCL 50 mg PO TID PRN 09/30/20 09/30/20 History Allergies Allergy/AdvReac Type Severity Reaction Status Date / Time codeine Allergy Unknown Verified 09/30/20 16:32 latex Allergy Rash/Hives Verified 09/30/20 16:32 hydrocodone bitartrate AdvReac Nausea & Verified 09/30/20 16:32 [From Vicodin] Vomiting & Diarrhea prednisone AdvReac brought on Verified 09/30/20 16:32 diabetes cortisone injections AdvReac brought on Uncoded 09/30/20 16:32 diabetes sedatives AdvReac "I could Uncoded 09/30/20 16:32 not wake up" steroids AdvReac Hallucinati Uncoded 09/30/20 16:32 ons Physical Exam Vitals: Vital Signs Temp Pulse Pulse Resp BP BP Pulse Ox 10/01/20 08:31 97.5 F L 95 18 114/66 94 L 10/01/20 01:49 97.8 F 92 16 137/77 94 L 09/30/20 21:58 97.5 F L 86 16 99/65 96 09/30/20 20:24 90 18 102/79 95 09/30/20 18:25 98.1 F 78 18 94/73 95 09/30/20 16:22 97.6 F 94 18 117/68 96 09/30/20 15:43 97.9 F 91 16 119/75 95 Intake and Output 09/30/20 10/01/20 10/01/20 22:59 06:59 14:59 Output Total 700 250 Balance -700 -250 Output: Urine 700 250 Other: # Voids 2 1 Weight 105 kg 105 kg Results CBC & Chem 7: 09/30/20 18:02 09/30/20 18:02 Labs: Abnormal Lab Results - Last 24 Hours (Table) 09/30/20 09/30/20 09/30/20 Range/Units 18:02 18:02 18:02 Hgb 10.8 L (11.4-16.0) gm/dL MCV 74.9 L (80.0-100.0) fL MCH 22.3 L (25.0-35.0) pg MCHC 29.8 L (31.0-37.0) g/dL RDW 17.6 H (11.5-15.5) % Lymphocytes # 0.3 L (1.0-4.8) k/uL PT 12.6 H (9.0-12.0) sec INR 1.2 H (<1.2) Potassium 3.4 L (3.5-5.1) mmol/L BUN 18 H (7-17) mg/dL Creatinine 1.44 H (0.52-1.04) mg/dL Glucose 107 H (74-99) mg/dL Alkaline Phosphatase 160 H (38-126) U/L Albumin 3.2 L (3.5-5.0) g/dL TSH 6.530 H (0.465-4.680) mIU/L Free T3 pg/mL 2.6 L (2.8-5.3) pg/ml Assessment and Plan (1) Venous (peripheral) insufficiency Current Visit: Yes Status: Acute Code(s): I87.2 - VENOUS INSUFFICIENCY (CHRONIC) (PERIPHERAL) SNOMED Code(s): 83237052 (2) Chronic venous hypertension (idiopathic) with inflammation of bilateral lower extremity Current Visit: Yes Status: Acute Code(s): I87.323 - CHRONIC VENOUS HTN W INFLAMMATION OF BILATERAL LOW EXTRM SNOMED Code(s): 057415111
[2020-10-01] MEDS: GABAPENTIN 100 MG CAP PO SCH ×3 (11:34→21:38)
[2020-10-01 11:39] LABS: African American GFR (CKD) 43 (>60 ml/min/1.73 sqM); Anion Gap 10 mmol/L; Blood Urea Nitrogen 17 mg/dL (7-17); Calcium 8.4 mg/dL (8.4-10.2); Carbon Dioxide 24 mmol/L (22-30); Chloride 104 mmol/L (98-107); Glucose 97 mg/dL (74-99); Magnesium 1.6 mg/dL (1.6-2.3); Non-African American GFR(CKD) 37 (>60 ml/min/1.73 sqM); Potassium 3.9 mmol/L (3.5-5.1); Sodium 138 mmol/L (137-145)
--- NOTE | 2020-10-01 12:00 | ECHOF ---
Referral Reason:LV function MEASUREMENTS -------- HEIGHT: 147.3 cm WEIGHT: 104.8 kg BP: 114/66 RVIDd: 4.0 cm (< 3.3) IVSd: 1.5 cm (0.6 - 1.1) LVIDd: 2.7 cm (3.9 - 5.3) LVPWd: 1.5 cm (0.6 - 1.1) IVSs: 1.3 cm LVIDs: 1.9 cm LVPWs: 1.6 cm LAESV Index (A-L): 36.38 ml/m Ao Diam: 2.6 cm (2.0 - 3.7) AV Cusp: 1.0 cm (1.5 - 2.6) MV EXCURSION: 15.387 mm (> 18.000) MV EF SLOPE: 103 mm/s (70 - 150) EPSS: 0.1 cm AV maxP.09 mmHg AV meanP.01 mmHg AR PHT: 709 ms RAP: 20.00 mmHg RVSP: 89.85 mmHg FINDINGS -------- Atrial fibrillation. This was a technically adequate study. The left ventricular size is normal. There is moderate concentric left ventricular hypertrophy. O verall left ventricular systolic function is normal with, an EF between 55 - 60 %. Moderate BERKLEY wit h peak LVOT gradient of 24.34mmHg. Possible LVOT Obstruction. The right ventricle is moderately enlarged. LA is moderately dilated 34-39 ml/m2 The right atrium is moderately enlarged. Electronic pacemaker lead seen in the right atrial cavity. Interatrial and interventricular septum intact. There is mild aortic regurgitation. There is hcqxqetd-[id number]-mkmiwq aortic stenosis present. Peak/srinath n gradient across the Aortic Valve is 37.09mmHg / 20.01mmHg. Moderate mitral regurgitation is present. Severe tricuspid regurgitation present. There is severe pulmonary hypertension. The right ventric ular systolic pressure, as measured by Doppler, is 89.85mmHg. Trace/mild (physiologic) pulmonic regurgitation. The aortic root size is normal. The inferior vena cava is dilated with no significant inspiratory collapse which is consistent estima christopher right atrial pressure of >20 mmHg. There is no pericardial effusion. CONCLUSIONS -------- 1. The left ventricular size is normal. 2. There is moderate concentric left ventricular hypertrophy. 3. Overall left ventricular systolic function is normal with, an EF between 55 - 60 %. 4. Moderate BERKLEY with peak LVOT gradient of 24.34mmHg. 5. Possible LVOT Obstruction. 6. The right ventricle is moderately enlarged. 7. LA is moderately dilated 34-39 ml/m2 8. The right atrium is moderately enlarged. 9. There is mild aortic regurgitation. 10. There is vdbblahv-[id number] aortic stenosis present. 11. Peak/mean gradient across the Aortic Valve is 37.09mmHg / 20.01mmHg. 12. Moderate mitral regurgitation is present. 13. Severe tricuspid regurgitation present. 14. There is severe pulmonary hypertension. 15. The right ventricular systolic pressure, as measured by Doppler, is 89.85mmHg. 16. Trace/mild (physiologic) pulmonic regurgitation. 17. The inferior vena cava is dilated with no significant inspiratory collapse which is consistent es timated right atrial pressure of >20 mmHg. MACHINE COMPOSITOR: Robina Joaquin RDCS
--- NOTE | 2020-10-01 13:22 | US ---
EXAMINATION TYPE: US kidneys/renal and bladder DATE OF EXAM: 10/01/2020 COMPARISON: NONE CLINICAL HISTORY: CKD. CKD EXAM MEASUREMENTS: Right Kidney: 9.6 x 4.5 x 4.8 cm Left Kidney: 9.0 x 4.7 x 4.0 cm Fluid visualized. Right Kidney: No hydronephrosis or masses seen Left Kidney: 1.6 x 1.4 x 1.8 cm cyst. Bladder: Anechoic Bilateral Jets seen: No IMPRESSION: 1. Left renal cyst
--- NOTE | 2020-10-01 13:51 | P.GSCN ---
History of Present Illness Consult date: 10/01/20 Reason for Consult: lymphedema Requesting physician: Kamaljit Krause History of present illness: This is a pleasant 73-year-old female sent into the emergency department with complaints of upper and lower extremity edema. The patient states she's had chronic edema to her lower extremities for several years which symptoms have been getting worse as of recent. She states that she is also starting to get edema in her upper extremities. The patient's medical history includes previous TIA, atrial fibrillation on Eliquis, morbid obesity, chronic diastolic CHF, anemia and pacemaker. She is known to cardiology and has a history of subaortic lab with outflow tract obstruction, CHF and atrial fibrillation. The patient states she has support hose ordered for at home but does not wear them, since at least 7-8 hours a day. He has a history of cholecystectomy, hysterectomy and appendectomy. She states that she has had her dermatitis to her lower extremities for the past 50 years. He states bilateral lower extremities are painful, she does continue with some shortness of breath, she came in also with some nausea and vomiting, denies any chest pain. Review of Systems 14 point review of systems was completed all pertinent positives and negatives as stated in the HPI Past Medical History Past Medical History: Cancer, CVA/TIA, Diabetes Mellitus, Fibromyalgia, Osteoarthritis (OA), Pneumonia, Skin Disorder Additional Past Medical History / Comment(s): hx hiatal hernia, diarrhea, leakage of urine/urgency, "dry skin", anemia, skin cancer History of Any Multi-Drug Resistant Organisms: None Reported Past Surgical History: Appendectomy, Cholecystectomy, Heart Catheterization, Hysterectomy, Joint Replacement, Orthopedic Surgery, Pacemaker, Tonsillectomy, Tubal Ligation Additional Past Surgical History / Comment(s): cyril heel spurs, left shoulder rotator cuff, bone biopsy, cyril cataracts Past Anesthesia/Blood Transfusion Reactions: Previous Problems w/ Anesthesia, Family History of Problems w/ Anesthesia, Postoperative Nausea & Vomiting (PONV) Additional Past Anesthesia/Blood Transfusion Reaction / Comm: "could not wake for several days after knee replacement". brother PONV. Type of Cardiac Device: Permanent Pacemaker Device Placement Date:: 04/2009 Past Psychological History: No Psychological Hx Reported Additional Psychological History / Comment(s): Pt resides with her spouse. She has a cane which she uses prn. She drives. Smoking Status: Former smoker Past Alcohol Use History: None Reported Additional Past Alcohol Use History / Comment(s): Pt started smoking in 1960 and quit in 1961 Past Drug Use History: None Reported - Past Family History Father Family Medical History: Cancer Additional Family Medical History / Comment(s): skin Mother Family Medical History: Seizure Disorder Medications and Allergies Home Medications Medication Instructions Recorded Confirmed Type Apixaban [Eliquis] 5 mg PO BID 30 Days #60 tab 10/15/18 09/30/20 Rx Metoprolol Tartrate [Lopressor] 50 mg PO BID tab 10/15/18 09/30/20 Rx Furosemide [Lasix] 80 mg PO DAILY PRN 07/19/19 09/30/20 History Ibuprofen [Motrin Ib] 200 mg PO Q8H PRN 07/07/20 09/30/20 History Potassium Chloride [Klor-Con 20] 20 meq PO DAILY PRN 09/30/20 09/30/20 History Tolterodine Tartrate [Detrol LA] 4 mg PO DAILY 09/30/20 09/30/20 History traMADol HCL 50 mg PO TID PRN 09/30/20 09/30/20 History Allergies Allergy/AdvReac Type Severity Reaction Status Date / Time codeine Allergy Unknown Verified 09/30/20 16:32 latex Allergy Rash/Hives Verified 09/30/20 16:32 hydrocodone bitartrate AdvReac Nausea & Verified 09/30/20 16:32 [From Vicodin] Vomiting & Diarrhea prednisone AdvReac brought on Verified 09/30/20 16:32 diabetes cortisone injections AdvReac brought on Uncoded 09/30/20 16:32 diabetes sedatives AdvReac "I could Uncoded 09/30/20 16:32 not wake up" steroids AdvReac Hallucinati Uncoded 09/30/20 16:32 ons Surgical - Exam Vital Signs Temp Pulse Resp BP Pulse Ox 97.9 F 91 16 119/75 95 09/30/20 15:43 09/30/20 15:43 09/30/20 15:43 09/30/20 15:43 09/30/20 15:43 General appearance: The patient is alert, oriented, appears in no acute distress. HET: Head is normocephalic and atraumatic. Pupils are equal and reactive. Oropharynx is clear without lesions. Neck: Supple without lymphadenopathy. Trachea midline. Carotids without bruits bilaterally. Heart: S1 S2. Regular rate and rhythm. Lungs: No crackles or wheezes are heard. Abdomen: Soft, nontender, nondistended with bowel sounds. No peritoneal signs. No palpable organomegaly or masses. Extremities: Chronic venous insufficiency with lymphedema dermatofibromas. Bilateral upper extremity edema with palpable radial pulses. Neurological: No focal deficits. Strength and sensation are grossly intact. Results - Labs 09/30/20 18:02 10/01/20 10:52 Abnormal Lab Results - Last 24 Hours (Table) 09/30/20 09/30/20 09/30/20 Range/Units 18:02 18:02 18:02 Hgb 10.8 L (11.4-16.0) gm/dL MCV 74.9 L (80.0-100.0) fL MCH 22.3 L (25.0-35.0) pg MCHC 29.8 L (31.0-37.0) g/dL RDW 17.6 H (11.5-15.5) % Lymphocytes # 0.3 L (1.0-4.8) k/uL PT 12.6 H (9.0-12.0) sec INR 1.2 H (<1.2) Potassium 3.4 L (3.5-5.1) mmol/L BUN 18 H (7-17) mg/dL Creatinine 1.44 H (0.52-1.04) mg/dL Glucose 107 H (74-99) mg/dL Alkaline Phosphatase 160 H (38-126) U/L Albumin 3.2 L (3.5-5.0) g/dL TSH 6.530 H (0.465-4.680) mIU/L Free T3 pg/mL 2.6 L (2.8-5.3) pg/ml Diabetes panel 09/30/20 Range/Units 18:02 Sodium 137 (137-145) mmol/L Potassium 3.4 L (3.5-5.1) mmol/L Chloride 104 (98-107) mmol/L Carbon Dioxide 24 (22-30) mmol/L BUN 18 H (7-17) mg/dL Creatinine 1.44 H (0.52-1.04) mg/dL Glucose 107 H (74-99) mg/dL Calcium 8.6 (8.4-10.2) mg/dL AST 35 (14-36) U/L ALT 19 (4-34) U/L Alkaline Phosphatase 160 H (38-126) U/L Total Protein 6.9 (6.3-8.2) g/dL Albumin 3.2 L (3.5-5.0) g/dL Thyroid panel 09/30/20 Range/Units 18:02 TSH 6.530 H (0.465-4.680) mIU/L Calcium panel 09/30/20 Range/Units 18:02 Calcium 8.6 (8.4-10.2) mg/dL Albumin 3.2 L (3.5-5.0) g/dL Pituitary panel 09/30/20 Range/Units 18:02 Sodium 137 (137-145) mmol/L Potassium 3.4 L (3.5-5.1) mmol/L Chloride 104 (98-107) mmol/L Carbon Dioxide 24 (22-30) mmol/L BUN 18 H (7-17) mg/dL Creatinine 1.44 H (0.52-1.04) mg/dL Glucose 107 H (74-99) mg/dL Calcium 8.6 (8.4-10.2) mg/dL TSH 6.530 H (0.465-4.680) mIU/L Adrenal panel 09/30/20 Range/Units 18:02 Sodium 137 (137-145) mmol/L Potassium 3.4 L (3.5-5.1) mmol/L Chloride 104 (98-107) mmol/L Carbon Dioxide 24 (22-30) mmol/L BUN 18 H (7-17) mg/dL Creatinine 1.44 H (0.52-1.04) mg/dL Glucose 107 H (74-99) mg/dL Calcium 8.6 (8.4-10.2) mg/dL Total Bilirubin 1.0 (0.2-1.3) mg/dL AST 35 (14-36) U/L ALT 19 (4-34) U/L Alkaline Phosphatase 160 H (38-126) U/L Total Protein 6.9 (6.3-8.2) g/dL Albumin 3.2 L (3.5-5.0) g/dL Assessment and Plan Plan: 1. Elevate lower extremities 2. Pneumatic compression 3. CT of abdomen and pelvis ordered 4. Repeat labs BMP 5. Recommend wound care management outpatient, will consult The impression and plan of care has been dictated as directed. I performed a history and examination of this patient, discussed the same with the dictator. I agree with the dictator's note ,documented as a scribe. Any additional findings or plans will be noted.
[2020-10-01] MEDS: metOLazone 5 MG TAB PO SCH (14:29)
[2020-10-01] MEDS: FUROSEMIDE 100 MG in SODIUM CHLORIDE 0.9% 90 ML IV SCH (14:29)
--- NOTE | 2020-10-01 14:41 | P.CNPUL ---
History of Present Illness Consult date: 10/01/20 Requesting physician: Kamaljit Krause Reason for consult: dyspnea, hypoxemia, pleural effusion, abnormal CXR/CT Chief complaint: Shortness of breath. Fluid retention. History of present illness: 75-year-old female who presents to the emergency department on September 30 at 1532. She comes in complaining of fluid retention, particularly in her lower extremities and upper extremities. In addition, the patient does complain of increasing shortness of breath. She denies any chest pain or chest discomfort. There are no fever or chills. She denies any cough or sputum production. The patient has a history of CVA, diabetes mellitus, fibromyalgia, DJD, pneumonia, chronic dry skin, stress urinary incontinence, hiatal hernia, previous pacemaker insertion, and previous heart catheterization. The patient states that her legs are very heavy for the edema, that she cannot even stand up. She feels very weak and fatigued. The shortness of breath is mild in severity. White count is 4.5, hemoglobin 10.8, hematocrit 36.3, and platelet count 166,000. PT 12.6, INR 1.2, PTT 26.7, sodium 138, potassium 3.9, chlorides 104, CO2 24, anion gap 10, BUN 17, creatinine 1.38 and TSH 6.530. Coronavirus testing was negative Review of Systems REVIEW OF SYSTEMS: CONSTITUTIONAL: Fatigue and weakness. NEUROLOGIC: [ Negative.] HEENT: [ Negative.] CARDIAC: Diffuse body edema. PULMONARY: Shortness of breath. GI: Nausea and vomiting. : [Negative.] RHEUMATOLOGIC: [ Negative.] IMMUNOLOGIC: [ Negative.] ENDOCRINE: [Negative. ] DERMATOLOGIC: [Negative.] Past Medical History Past Medical History: Cancer, CVA/TIA, Diabetes Mellitus, Fibromyalgia, Osteoarthritis (OA), Pneumonia, Skin Disorder Additional Past Medical History / Comment(s): hx hiatal hernia, diarrhea, leakage of urine/urgency, "dry skin", anemia, skin cancer History of Any Multi-Drug Resistant Organisms: None Reported Past Surgical History: Appendectomy, Cholecystectomy, Heart Catheterization, Hysterectomy, Joint Replacement, Orthopedic Surgery, Pacemaker, Tonsillectomy, Tubal Ligation Additional Past Surgical History / Comment(s): cyril heel spurs, left shoulder rotator cuff, bone biopsy, cyril cataracts Past Anesthesia/Blood Transfusion Reactions: Previous Problems w/ Anesthesia, Family History of Problems w/ Anesthesia, Postoperative Nausea & Vomiting (PONV) Additional Past Anesthesia/Blood Transfusion Reaction / Comment(s): "could not wake for several days after knee replacement". brother PONV. Type of Cardiac Device: Permanent Pacemaker Device Placement Date:: 04/2009 Past Psychological History: No Psychological Hx Reported Additional Psychological History / Comment(s): Pt resides with her spouse. She has a cane which she uses prn. She drives. Smoking Status: Former smoker Past Alcohol Use History: None Reported Additional Past Alcohol Use History / Comment(s): Pt started smoking in 1960 and quit in 1961 Past Drug Use History: None Reported - Past Family History Father Family Medical History: Cancer Additional Family Medical History / Comment(s): skin Mother Family Medical History: Seizure Disorder Medications and Allergies Home Medications Medication Instructions Recorded Confirmed Type Apixaban [Eliquis] 5 mg PO BID 30 Days #60 tab 10/15/18 09/30/20 Rx Metoprolol Tartrate [Lopressor] 50 mg PO BID tab 10/15/18 09/30/20 Rx Furosemide [Lasix] 80 mg PO DAILY PRN 07/19/19 09/30/20 History Ibuprofen [Motrin Ib] 200 mg PO Q8H PRN 07/07/20 09/30/20 History Potassium Chloride [Klor-Con 20] 20 meq PO DAILY PRN 09/30/20 09/30/20 History Tolterodine Tartrate [Detrol LA] 4 mg PO DAILY 09/30/20 09/30/20 History traMADol HCL 50 mg PO TID PRN 09/30/20 09/30/20 History Allergies Allergy/AdvReac Type Severity Reaction Status Date / Time codeine Allergy Unknown Verified 09/30/20 16:32 latex Allergy Rash/Hives Verified 09/30/20 16:32 hydrocodone bitartrate AdvReac Nausea & Verified 09/30/20 16:32 [From Vicodin] Vomiting & Diarrhea prednisone AdvReac brought on Verified 09/30/20 16:32 diabetes cortisone injections AdvReac brought on Uncoded 09/30/20 16:32 diabetes sedatives AdvReac "I could Uncoded 09/30/20 16:32 not wake up" steroids AdvReac Hallucinati Uncoded 02/03/21 16:32 ons Physical Exam Osteopathic Statement: *. No significant issues noted on an osteopathic stru ctural exam other than those noted in the History and Physical/Consult. Vitals: Vital Signs Temp Pulse Pulse Resp BP BP Pulse Ox 10/01/20 14:00 97.3 F L 74 16 83/57 95 10/01/20 08:31 97.5 F L 95 18 114/66 94 L 10/01/20 01:49 97.8 F 92 16 137/77 94 L 09/30/20 21:58 97.5 F L 86 16 99/65 96 09/30/20 20:24 90 18 102/79 95 09/30/20 18:25 98.1 F 78 18 94/73 95 09/30/20 16:22 97.6 F 94 18 117/68 96 09/30/20 15:43 97.9 F 91 16 119/75 95 Intake and Output 09/30/20 10/01/20 10/01/20 22:59 06:59 14:59 Output Total 700 250 Balance -700 -250 Output: Urine 700 250 Other: # Voids 2 1 Weight 105 kg 105 kg No acute distress, oriented 3. No supplemental oxygen noted. HEENT examination is grossly unremarkable. Mucous membranes are moist. No oral lesions. Neck supple. Full range of motion. No adenopathy thyromegaly or neck vein distention. Cardiovascular examination reveals an irregular rhythm and rate. S1-S2 normal. No S3 or S4. No discernible murmur noted. Heart sounds are distant. Heart r ate 95 bpm. Lungs reveal scattered rhonchi and crackles. Breath sounds equal bilaterally. No wheezes. Abdomen obese, but soft, and bowel sounds are heard. No masses or tenderness. Extremities reveal diffuse edema and anasarca both of the upper and lower extremities. The lower extremities reveal evidence of chronic venous stasis, and hyperpigmentation. There is significant pitting. Skin is without rash or lesion. Neurologic examination is brief but nonfocal. Results - Laboratory Findings CBC and BMP: 09/30/20 18:02 10/01/20 10:52 PT/INR, D-dimer PT 12.6 sec (9.0-12.0) H 09/30/20 18:02 INR 1.2 (<1.2) H 09/30/20 18:02 Abnormal lab findings: Abnormal Labs 09/30/20 09/30/20 09/30/20 18:02 18:02 18:02 Hgb 10.8 L MCV 74.9 L MCH 22.3 L MCHC 29.8 L RDW 17.6 H Lymphocytes # 0.3 L PT 12.6 H INR 1.2 H Potassium 3.4 L BUN 18 H Creatinine 1.44 H Glucose 107 H Alkaline Phosphatase 160 H Albumin 3.2 L TSH 6.530 H Free T3 pg/mL 2.6 L 10/01/20 10:52 Hgb MCV MCH MCHC RDW Lymphocytes # PT INR Potassium BUN Creatinine 1.38 H Glucose Alkaline Phosphatase Albumin TSH Free T3 pg/mL - Diagnostic Findings Chest x-ray: image reviewed Assessment and Plan Assessment: Acute on chronic diastolic congestive heart failure. Diffuse body edema and anasarca, which quickly to the lower extremities. Chronic venous stasis and hyperpigmentation of the lower extremities, secondary to venous incompetence. Obesity. History of subaortic web and outflow track obstruction. History of chronic atrial fibrillation. Severe pulmonary hypertension. History of CVA. History of diabetes mellitus. History of fibromyalgia. History of hiatal hernia. Stress urinary incontinence. History of osteoarthritis. Chronic dry skin. Plan: Plan dated 10/01/2020. The patient's #1 issue is the body edema and anasarca. The patient does have some shortness of breath related to her underlying CHF. She appears not to have any chronic underlying lung disease. She is a lifelong nonsmoker, other than fo r one year while in high school. She denies a diagnosis of asthma, chronic bronchitis, COPD, or emphysema. We will continue to follow. She's been seen by cardiology. Additional recommendations and suggestions are forthcoming. Prognosis is guarded. Time with Patient: Greater than 30
[2020-10-01] MEDS: PETROLAT,WHITE/LAN/8-HYDROXYQU 227 GM OINT TOPICAL SCH (14:45)
[2020-10-01 15:01] LABS: Hemoglobin A1C 5.6 % (4.0-6.0)
--- NOTE | 2020-10-01 16:54 | P.HPIM ---
History of Present Illness H&P Date: 10/01/20 Livier Kilgore, is a 75-year-old female, who presented to [facility] emergency room with a chief complaint of worsening shortness of breath and bilateral lower extremity edema she was evaluated in the emergency room vital examination on presentation reveals a temperature of 97.9 pulse 91 respiration 16 and blood pressure 119/75 pulse ox 95% on room air her white blood count was 4.5 hemoglobin 10.9 platelet count 166 BUN was 18 creatinine 1.44 alkaline phosphatase 160 albumin and low at 3.2 TSH elevated at 6.53 coronavirus PCR was negative, chest x-ray revealed evidence of congestive heart failure and pulmonary edema, she was admitted to telemetry floor, cardiology consultation was requested. Patient has been having worsening lower extremity edema over the last few months with evidence of lymphedema, cause is unclear, she also has a known history of hypertension, gout, atrial fibrillation, and chronic kidney disease. Past Medical History Past Medical History: Cancer, CVA/TIA, Diabetes Mellitus, Fibromyalgia, Osteoarthritis (OA), Pneumonia, Skin Disorder Additional Past Medical History / Comment(s): hx hiatal hernia, diarrhea, leakage of urine/urgency, "dry skin", anemia, skin cancer History of Any Multi-Drug Resistant Organisms: None Reported Past Surgical History: Appendectomy, Cholecystectomy, Heart Catheterization, Hysterectomy, Joint Replacement, Orthopedic Surgery, Pacemaker, Tonsillectomy, Tubal Ligation Additional Past Surgical History / Comment(s): cyril heel spurs, left shoulder rotator cuff, bone biopsy, cyril cataracts Past Anesthesia/Blood Transfusion Reactions: Previous Problems w/ Anesthesia, Family History of Problems w/ Anesthesia, Postoperative Nausea & Vomiting (PONV) Additional Past Anesthesia/Blood Transfusion Reaction / Comment(s): "could not wake for several days after knee replacement". brother PONV. Type of Cardiac Device: Permanent Pacemaker Device Placement Date:: 04/2009 Past Psychological History: No Psychological Hx Reported Additional Psychological History / Comment(s): Pt resides with her spouse. She has a cane which she uses prn. She drives. Smoking Status: Former smoker Past Alcohol Use History: None Reported Additional Past Alcohol Use History / Comment(s): Pt started smoking in 1960 and quit in 1961 Past Drug Use History: None Reported - Past Family History Father Family Medical History: Cancer Additional Family Medical History / Comment(s): skin Mother Family Medical History: Seizure Disorder Medications and Allergies Home Medications Medication Instructions Recorded Confirmed Type Apixaban [Eliquis] 5 mg PO BID 30 Days #60 tab 10/15/18 09/30/20 Rx Metoprolol Tartrate [Lopressor] 50 mg PO BID tab 10/15/18 09/30/20 Rx Furosemide [Lasix] 80 mg PO DAILY PRN 07/19/19 09/30/20 History Ibuprofen [Motrin Ib] 200 mg PO Q8H PRN 07/07/20 09/30/20 History Potassium Chloride [Klor-Con 20] 20 meq PO DAILY PRN 09/30/20 09/30/20 History Tolterodine Tartrate [Detrol LA] 4 mg PO DAILY 09/30/20 09/30/20 History traMADol HCL 50 mg PO TID PRN 09/30/20 09/30/20 History Allergies Allergy/AdvReac Type Severity Reaction Status Date / Time codeine Allergy Unknown Verified 09/30/20 16:32 latex Allergy Rash/Hives Verified 09/30/20 16:32 hydrocodone bitartrate AdvReac Nausea & Verified 09/30/20 16:32 [From Vicodin] Vomiting & Diarrhea prednisone AdvReac brought on Verified 09/30/20 16:32 diabetes cortisone injections AdvReac brought on Uncoded 09/30/20 16:32 diabetes sedatives AdvReac "I could Uncoded 09/30/20 16:32 not wake up" steroids AdvReac Hallucinati Uncoded 09/30/20 16:32 ons Physical Exam Vitals: Vital Signs Temp Pulse Pulse Resp BP BP Pulse Ox 10/01/20 08:31 97.5 F L 95 18 114/66 94 L 10/01/20 01:49 97.8 F 92 16 137/77 94 L 09/30/20 21:58 97.5 F L 86 16 99/65 96 09/30/20 20:24 90 18 102/79 95 09/30/20 18:25 98.1 F 78 18 94/73 95 09/30/20 16:22 97.6 F 94 18 117/68 96 09/30/20 15:43 97.9 F 91 16 119/75 95 Intake and Output 09/30/20 10/01/20 10/01/20 22:59 06:59 14:59 Output Total 700 250 Balance -700 -250 Output: Urine 700 250 Other: # Voids 2 1 Weight 105 kg In general patient is alert and oriented 3 in no apparent distress HEENT head normocephalic and atraumatic Neck is supple no JVD no goiter no lymphadenopathy Chest exam reveals crackles in both lung bases no wheezing Cardiac exam reveals regular heart sounds S1 and S2 no gallops no murmurs Abdomen is soft nontender no organomegaly with normal bowel sounds Extremity exam reveals significant edema and bilateral lower extremities extending up to the thighs and evidence of edema in the upper extremities Neurological examination reveals, no gross focal neurological deficits Results CBC & Chem 7: 09/30/20 18:02 10/01/20 10:52 Labs: Abnormal Lab Results - Last 24 Hours (Table) 09/30/20 09/30/20 09/30/20 Range/Units 18:02 18:02 18:02 Hgb 10.8 L (11.4-16.0) gm/dL MCV 74.9 L (80.0-100.0) fL MCH 22.3 L (25.0-35.0) pg MCHC 29.8 L (31.0-37.0) g/dL RDW 17.6 H (11.5-15.5) % Lymphocytes # 0.3 L (1.0-4.8) k/uL PT 12.6 H (9.0-12.0) sec INR 1.2 H (<1.2) Potassium 3.4 L (3.5-5.1) mmol/L BUN 18 H (7-17) mg/dL Creatinine 1.44 H (0.52-1.04) mg/dL Glucose 107 H (74-99) mg/dL Alkaline Phosphatase 160 H (38-126) U/L Albumin 3.2 L (3.5-5.0) g/dL TSH 6.530 H (0.465-4.680) mIU/L Free T3 pg/mL 2.6 L (2.8-5.3) pg/ml Thrombosis Risk Factor Assmnt - Choose All That Apply Each Factor Represents 1 point: Obesity (BMI >25), Swollen legs (current) Other Risk Factors: Yes Each Risk Factor Represents 3 Points: Age 75 years or older Other congenital or acquired thrombophilia - If yes, enter type in comment: No Thrombosis Risk Factor Assessment Total Risk Factor Score: 5 Thrombosis Risk Factor Assessment Level: High Risk Assessment and Plan Plan: 1. Acute exacerbation of congestive heart failure will check echocardiogram and consult cardiology, patient started on IV Lasix 40 mg every 8 hours and potassium replacement protocol 2. Severe and worsening lymphedema cause is unclear Will consult vascular surgery 3. Chronic kidney disease, will check kidney ultrasound and monitor kidney function daily 4. Underlying history of atrial fibrillation patient is maintained on Eliquis for stroke prevention, heart rate is well-controlled 5. Underlying history of hypertension 6. Underlying history of gout, will check uric acid level 7. [id number] diabetes mellitus millimeters so far maintained on diet only, will check hemoglobin A1c 8. Evidence of hypothyroidism with elevated TSH on presentation will start patient on Synthroid 25 g daily At this time patient is admitted to medical floor Consultation for cardiology, pulmonary, and vascular surgery initiated Will continue with IV Lasix and monitor kidney function closely For DVT prophylaxis patient is on Eliquis GI prophylaxis Will add Protonix Prognosis is guarded will follow closely
[2020-10-01 17:08] LABS: Glucose,Whole Blood 86 mg/dL (75-99)
[2020-10-01 22:28] LABS: % Iron Saturation 19.94 (12.00-45.00)
[2020-10-02 05:39] LABS: Anisocytosis Slight; Basophils # (A) 0.1 k/uL (0-0.2); Basophils % (A) 1 %; Eosinophils # (A) 0.2 k/uL (0-0.7); Eosinophils % (A) 5 %; HCT 35.5 % (34.0-46.0); HGB 10.7 gm/dL (11.4-16.0); Hypochromasia Marked; Lymphocytes # (A) 0.6 k/uL (1.0-4.8); Lymphocytes % (A) 11 %; MCH 22.3 pg (25.0-35.0); MCHC 30.1 g/dL (31.0-37.0); MCV 74.1 fL (80.0-100.0); Mean Platelet Volume 7.1; Microcytosis Moderate; Monocytes # (A) 0.4 k/uL (0-1.0); Monocytes % (A) 9 %; Neutrophils # (A) 3.6 k/uL (1.3-7.7); Neutrophils % (A) 72 %; Platelet Count 194 k/uL (150-450); Poikilocytosis Slight; RBC 4.79 m/uL (3.80-5.40); RDW 17.7 % (11.5-15.5)
[2020-10-02 05:51] LABS: ALT 19 U/L (4-34); AST 38 U/L (14-36); African American GFR (CKD) 34 (>60 ml/min/1.73 sqM); Albumin 2.6 g/dL (3.5-5.0); Albumin/Globulin Ratio 0.8; Alkaline Phosphatase 154 U/L (38-126); Anion Gap 7 mmol/L; Blood Urea Nitrogen 21 mg/dL (7-17); Calcium 8.1 mg/dL (8.4-10.2); Carbon Dioxide 22 mmol/L (22-30); Chloride 109 mmol/L (98-107); Globulin 3.4 g/dL; Glucose 84 mg/dL (74-99); Magnesium 1.6 mg/dL (1.6-2.3); Non-African American GFR(CKD) 30 (>60 ml/min/1.73 sqM); Sodium 138 mmol/L (137-145); Total Bilirubin 0.9 mg/dL (0.2-1.3)
[2020-10-02 05:59] LABS: Potassium 4.3 mmol/L (3.5-5.1)
[2020-10-02] MEDS: LEVOTHYROXINE 25 MCG TAB PO SCH (05:59)
--- NOTE | 2020-10-02 11:42 | P.PN ---
Subjective Progress Note Date: 10/02/20 Principal diagnosis: Acute exacerbation of diastolic CHF, shortness of breath, lymphedema 75-year-old female who presents to the emergency department on September 30 at 1532. She comes in complaining of fluid retention, particularly in her lower extremities and upper extremities. In addition, the patient does complain of increasing shortness of breath. She denies any chest pain or chest discomfort. There are no fever or chills. She denies any cough or sputum production. The patient has a history of CVA, diabetes mellitus, fibromyalgia, DJD, pneumonia, chronic dry skin, stress urinary incontinence, hiatal hernia, previous pacemaker insertion, and previous heart catheterization. The patient states that her legs are very heavy for the edema, that she cannot even stand up. She feels very weak and fatigued. The shortness of breath is mild in severity. White count is 4.5, hemoglobin 10.8, hematocrit 36.3, and platelet count 166,000. PT 12.6, INR 1.2, PTT 26.7, sodium 138, potassium 3.9, chlorides 104, CO2 24, anion gap 10, BUN 17, creatinine 1.38 and TSH 6.530. Coronavirus testing was negative On 10/02/2020 patient seen in follow-up on medical surgical she is mildly short of breath, at rest, but no acute distress, room air pulse ox is 90-93%, afebrile, she has quite significant generalized edema especially involving bilateral lower extremities. Nephrology is following, patient is currently on Zaroxolyn, Lasix infusion at 5 mg per hour, and she is in -250 ML fluid balance over the last 24 hours, however her net fluid balance is difficult to estimate. Is on 1500 mL fluid restriction, today's labs have been reviewed, showing sodium of 138, potassium is 4.3, chloride is 109. She is complaining of some nausea, she has a emesis basin in her lap. CT abdomen and pelvis was initially ordered, however is on hold right now. Cardiac was reviewed showing EF 55-60%, moderate concentric LVH. Moderate to severe aortic stenosis, severe pulmonary hyper tension, with PA systolic of 89.8 mmHg, and dilation of the inferior vena cava right atrial pressure of greater than 20 mm of mercury. Objective - Vital Signs Vital signs: Vital Signs Temp 97.5 F L 10/02/20 08:00 Pulse 88 02/05/21 08:00 Resp 17 10/02/20 08:00 BP 95/65 10/02/20 08:00 Pulse Ox 90 L 10/02/20 08:00 Intake & Output 10/01/20 10/02/20 10/02/20 18:59 06:59 18:59 Intake Total 118 Output Total 250 Balance -250 118 Weight 105 kg Intake: Oral 118 Output: Urine 250 Other: Voiding Method Bedside Commode # Voids 1 1 # Bowel Movements 1 - Exam GENERAL EXAM: Alert, very pleasant, 75-year-old obese white female, resting in bed, on Lasix infusion at 5 mg per hour, patient is mildly short of breath, and she is nauseous HEAD: Normocephalic/atraumatic. EYES: Normal reaction of pupils, equal size. Conjunctiva pink, sclera white. NOSE: Clear with pink turbinates. THROAT: No erythema or exudates. NECK: No masses, no JVD, no thyroid enlargement, no adenopathy. CHEST: No chest wall deformity. Symmetrical expansion. LUNGS: Equal air entry with no crackles, wheeze, rhonchi or dullness. CVS: Regular rate and rhythm, normal S1 and S2, no gallops, no murmurs, no rubs ABDOMEN: Soft, nontender. No hepatosplenomegaly, normal bowel sounds, no guarding or rigidity. EXTREMITIES: No clubbing, lymphedema of lower extremities, no cyanosis, 2+ pulses and upper and lower extremities. MUSCULOSKELETAL: Muscle strength and tone normal. SPINE: No scoliosis or deformity SKIN: Dry scaly skin on bilateral lower extremities CENTRAL NERVOUS SYSTEM: Alert and oriented -3. No focal deficits, tone is normal in all 4 extremities. PSYCHIATRIC: Alert and oriented -3. Appropriate affect. Intact judgment and insight. - Labs CBC & Chem 7: 10/02/20 05:26 10/02/20 05:26 Labs: Abnormal Lab Results - Last 24 Hours (Table) 10/01/20 10/01/20 10/02/20 Range/Units 04:48 10:52 05:26 Hgb (11.4-16.0) gm/dL MCV (80.0-100.0) fL MCH (25.0-35.0) pg MCHC (31.0-37.0) g/dL RDW (11.5-15.5) % Lymphocytes # (1.0-4.8) k/uL Chloride 109 H (98-107) mmol/L BUN 21 H (7-17) mg/dL Creatinine 1.38 H 1.65 H (0.52-1.04) mg/dL Uric Acid 8.5 H (2.9-7.7) mg/dL Calcium 8.1 L (8.4-10.2) mg/dL AST 38 H (14-36) U/L Alkaline Phosphatase 154 H (38-126) U/L Total Protein 6.0 L (6.3-8.2) g/dL Albumin 2.6 L (3.5-5.0) g/dL 10/02/20 Range/Units 05:26 Hgb 10.7 L (11.4-16.0) gm/dL MCV 74.1 L (80.0-100.0) fL MCH 22.3 L (25.0-35.0) pg MCHC 30.1 L (31.0-37.0) g/dL RDW 17.7 H (11.5-15.5) % Lymphocytes # 0.6 L (1.0-4.8) k/uL Chloride (98-107) mmol/L BUN (7-17) mg/dL Creatinine (0.52-1.04) mg/dL Uric Acid (2.9-7.7) mg/dL Calcium (8.4-10.2) mg/dL AST (14-36) U/L Alkaline Phosphatase (38-126) U/L Total Protein (6.3-8.2) g/dL Albumin (3.5-5.0) g/dL Assessment and Plan Plan: Acute on chronic diastolic congestive heart failure. Diffuse body edema and anasarca, which quickly to the lower extremities. Chronic venous stasis and hyperpigmentation of the lower extremities, secondary to venous incompetence. Obesity. History of subaortic web and outflow track obstruction. History of chronic atrial fibrillation. Severe pulmonary hypertension. History of CVA. History of diabetes mellitus. History of fibromyalgia. History of hiatal hernia. Stress urinary incontinence. History of osteoarthritis. Chronic dry skin. Plan: Continue the diuretic therapy per nephrology recommendations, accurate intake and output, daily weight, echocardiogram results have been noted, no fever or chills, no complaints of chest pain, complains of some nausea. Maintain aspiration precautions, will continue to follow I performed a history & physical examination of the patient and discussed their management with my nurse practitioner, Imelda Navarro. I reviewed the nurse practitioner's note and agree with the documented findings and plan of care. Lung sounds are positive for diminished breath sounds The findings and the impression was discussed with the patient. I attest to the documentation by the nurse practitioner. Time with Patient: Less than 30
--- NOTE | 2020-10-02 11:44 | P.PN ---
Subjective Progress Note Date: 10/02/20 The patient was seen and examined lying in bed. She states she did not have a good night. She had some hypotension through the evening. She denies any increase in pain, shortness of breath or chest pain at this time. She has SCDs on her lower extremities. Wound care evaluated patient yesterday. CT of abdomen and pelvis was ordered with contrast, however due to patient's kidney function was canceled. Patient does not have any acute vascular compromise, and requires no acute indication for vascular surgical intervention. Objective - Vital Signs Vital signs: Vital Signs Temp 97.5 F L 10/02/20 08:00 Pulse 88 10/02/20 08:00 Resp 17 10/02/20 08:00 BP 95/65 10/02/20 08:00 Pulse Ox 90 L 10/02/20 08:00 Intake & Output 10/01/20 10/02/20 10/02/20 18:59 06:59 18:59 Output Total 250 Balance -250 Weight 105 kg Output: Urine 250 Other: Voiding Method Bedside Commode # Voids 1 1 # Bowel Movements 1 - Exam eneral appearance: The patient is alert, oriented, appears in no acute distress. HET: Head is normocephalic and atraumatic. Pupils are equal and reactive. Oropharynx is clear without lesions. Neck: Supple without lymphadenopathy. Trachea midline. Carotids without bruits bilaterally. Heart: S1 S2. Regular rate and rhythm. Lungs: No crackles or wheezes are heard. Abdomen: Soft, nontender, nondistended with bowel sounds. No peritoneal signs. No palpable organomegaly or masses. Extremities: Chronic venous insufficiency with lymphedema dermatofibromas. Bilateral upper extremity edema with palpable radial pulses. Neurological: No focal deficits. Strength and sensation are grossly intact. - Labs CBC & Chem 7: 10/02/20 05:26 10/02/20 05:26 Labs: Abnormal Lab Results - Last 24 Hours (Table) 10/01/20 10/01/20 10/02/20 Range/Units 04:48 10:52 05:26 Hgb (11.4-16.0) gm/dL MCV (80.0-100.0) fL MCH (25.0-35.0) pg MCHC (31.0-37.0) g/dL RDW (11.5-15.5) % Lymphocytes # (1.0-4.8) k/uL Chloride 109 H (98-107) mmol/L BUN 21 H (7-17) mg/dL Creatinine 1.38 H 1.65 H (0.52-1.04) mg/dL Uric Acid 8.5 H (2.9-7.7) mg/dL Calcium 8.1 L (8.4-10.2) mg/dL AST 38 H (14-36) U/L Alkaline Phosphatase 154 H (38-126) U/L Total Protein 6.0 L (6.3-8.2) g/dL Albumin 2.6 L (3.5-5.0) g/dL 10/02/20 Range/Units 05:26 Hgb 10.7 L (11.4-16.0) gm/dL MCV 74.1 L (80.0-100.0) fL MCH 22.3 L (25.0-35.0) pg MCHC 30.1 L (31.0-37.0) g/dL RDW 17.7 H (11.5-15.5) % Lymphocytes # 0.6 L (1.0-4.8) k/uL Chloride (98-107) mmol/L BUN (7-17) mg/dL Creatinine (0.52-1.04) mg/dL Uric Acid (2.9-7.7) mg/dL Calcium (8.4-10.2) mg/dL AST (14-36) U/L Alkaline Phosphatase (38-126) U/L Total Protein (6.3-8.2) g/dL Albumin (3.5-5.0) g/dL Assessment and Plan Assessment: 1. Venous insufficiency with chronic venous stasis 2. Upper and lower extremity lymphedema 3. Morbid obesity 4. Acute on chronic diastolic congestive heart failure 5. Pulmonary hypertension 6. Diabetes mellitus Plan: 1. Elevate lower extremities 2. Pneumatic compression 3. CT of abdomen and pelvis filled due to knee function, will reevaluate as an outpatient 4. Wound care consulted 5. There are no acute indications for any vascular surgical intervention, patient advised to follow-up as an outpatient. Can reconsider CT of the abdomen at that time. Thank you for this consultation, we will sign off at this time. Patient advised to follow-up as an outpatient. The above dictated assessment and findings were discussed with Dr. Oseguera. The impression and plan of care have been directed as dictated.
--- NOTE | 2020-10-02 12:00 | P.PN ---
Subjective Patient is seen in follow for acute kidney injury. Renal function a little worse today. Creatinine 1.65. Remains quite edematous. She was not started on Lasix drip yesterday due to low blood pressures. Blood pressure this morning was 95/65. Awake and alert. Vital signs are stable. Blood pressure on the lower side. General: The patient appeared well nourished and normally developed. HEENT: Head exam is unremarkable. Neck is without jugular venous distension. LUNGS:Breath sounds decreased. HEART: Rate and Rhythm are regular. ABDOMEN: Soft, nontender. Obese. EXTREMITITES: 2+ edema. Chronic kidney disease noted. Lower extremity is tender to touch. Objective - Vital Signs Vital signs: Vital Signs Temp 97.5 F L 10/02/20 08:00 Pulse 88 10/02/20 08:00 Resp 17 10/02/20 08:00 BP 95/65 10/02/20 08:00 Pulse Ox 90 L 10/02/20 08:00 Intake & Output 10/01/20 10/02/20 10/02/20 18:59 06:59 18:59 Intake Total 118 Output Total 250 Balance -250 118 Weight 105 kg Intake: Oral 118 Output: Urine 250 Other: Voiding Method Bedside Commode # Voids 1 1 # Bowel Movements 1 - Labs CBC & Chem 7: 10/02/20 05:26 10/02/20 05:26 Labs: Abnormal Lab Results - Last 24 Hours (Table) 10/01/20 10/02/20 10/02/20 Range/Units 04:48 05:26 05:26 Hgb 10.7 L (11.4-16.0) gm/dL MCV 74.1 L (80.0-100.0) fL MCH 22.3 L (25.0-35.0) pg MCHC 30.1 L (31.0-37.0) g/dL RDW 17.7 H (11.5-15.5) % Lymphocytes # 0.6 L (1.0-4.8) k/uL Chloride 109 H (98-107) mmol/L BUN 21 H (7-17) mg/dL Creatinine 1.65 H (0.52-1.04) mg/dL Uric Acid 8.5 H (2.9-7.7) mg/dL Calcium 8.1 L (8.4-10.2) mg/dL AST 38 H (14-36) U/L Alkaline Phosphatase 154 H (38-126) U/L Total Protein 6.0 L (6.3-8.2) g/dL Albumin 2.6 L (3.5-5.0) g/dL Assessment and Plan Plan: Assessment: 1. Acute kidney injury mostly prerenal secondary to cardiorenal syndrome. Creatinine 1.65 today. Baseline creatinine near 1. No hydronephrosis noted on kidney ultrasound. 2. Acute on chronic diastolic CHF with moderate mitral regurgitation, severe tricuspid regurgitation and pulmonary hypertension. 3. Hypokalemia secondary to diuresis. 4. Volume overload. 5. Hypotension related to underlying cardiac status. Plan: Check a.m. cortisol level. Add midodrine. Start Lasix drip. 1500 mL fluid restriction and low-salt diet. Continue to monitor renal function and urine output. Follow-up UA.
--- NOTE | 2020-10-02 12:26 | P.PN ---
Subjective Progress Note Date: 10/02/20 HISTORY OF PRESENT ILLNESS: Patient examined this morning at the bedside. Patient reports nausea this morning, but no episodes of vomiting. She states she feels short of breath and complains of labored breathing. She was seen by nephrology yesterday and lasix drip was ordered. However, this was unable to be started secondary to hypotension. Blood pressure this morning 95/65. Creatinine 1.65, up from 1.38. Echocardiogram completed revealed ejection fraction 55-60%, mild aortic regurgitation, moderate to severe aortic stenosis, moderate mitral regurgitation, severe tricuspid regurgitation and severe pulmonary hypertension PHYSICAL EXAM: VITAL SIGNS: Reviewed. GENERAL: Well-developed in no acute distress. NECK: Supple. No JVD or thyromegaly LUNGS: Respirations even and unlabored. Lungs essentially clear to auscultation, diminished bilaterally. HEART: Irregular rate and rhythm. S1 and S2 heard. Systolic murmur noted. EXTREMITIES: Normal range of motion. No clubbing or cyanosis. Peripheral pulses intact. Chronic edema to bilateral lower extremities ASSESSMENT: Acute exacerbation of chronic diastolic heart failure Chronic persistent atrial fibrillation, on anticoagulation with Eliquis Acute kidney injury History of permanent pacemaker implantation Valvular heart disease Severe pulmonary hypertension Chronic bilateral lower extremity edema PLAN: Nephrology following. Plan is to add Midodrine today and begin lasix drip Continue additional cardiac medications Monitor blood pressure Monitor kidney function Accurate I&O Daily weights Further recommendations pending patient course Nurse practitioner note has been reviewed by physician. Signing provider agrees with the documented findings, assessment, and plan of care. Objective - Vital Signs Vital signs: Vital Signs Temp 97.5 F L 10/02/20 08:00 Pulse 88 10/02/20 08:00 Resp 17 10/02/20 08:00 BP 95/65 10/02/20 08:00 Pulse Ox 90 L 10/02/20 08:00 Intake & Output 10/01/20 10/02/20 10/02/20 18:59 06:59 18:59 Intake Total 118 Output Total 250 Balance -250 118 Weight 105 kg Intake: Oral 118 Output: Urine 250 Other: Voiding Method Bedside Commode # Voids 1 1 # Bowel Movements 1 - Labs CBC & Chem 7: 10/02/20 05:26 10/02/20 05:26 Labs: Abnormal Lab Results - Last 24 Hours (Table) 10/01/20 10/02/2021 Range/Units 04:48 05:26 05:26 Hgb 10.7 L (11.4-16.0) gm/dL MCV 74.1 L (80.0-100.0) fL MCH 22.3 L (25.0-35.0) pg MCHC 30.1 L (31.0-37.0) g/dL RDW 17.7 H (11.5-15.5) % Lymphocytes # 0.6 L (1.0-4.8) k/uL Chloride 109 H (98-107) mmol/L BUN 21 H (7-17) mg/dL Creatinine 1.65 H (0.52-1.04) mg/dL Uric Acid 8.5 H (2.9-7.7) mg/dL Calcium 8.1 L (8.4-10.2) mg/dL AST 38 H (14-36) U/L Alkaline Phosphatase 154 H (38-126) U/L Total Protein 6.0 L (6.3-8.2) g/dL Albumin 2.6 L (3.5-5.0) g/dL
--- NOTE | 2020-10-02 12:52 | P.PN ---
Subjective Progress Note Date: 10/02/20 Livier Kilgore, is a 75-year-old female, who presented to [facility] emergency room with a chief complaint of worsening shortness of breath and bilateral lower extremity edema she was evaluated in the emergency room vital examination on presentation reveals a temperature of 97.9 pulse 91 respiration 16 and blood pressure 119/75 pulse ox 95% on room air her white blood count was 4.5 hemoglobin 10.9 platelet count 166 BUN was 18 creatinine 1.44 alkaline phosphatase 160 albumin and low at 3.2 TSH elevated at 6.53 coronavirus PCR was negative, chest x-ray revealed evidence of congestive heart failure and pulmonary edema, she was admitted to telemetry floor, cardiology consultation was requested. Patient has been having worsening lower extremity edema over the last few months with evidence of lymphedema, cause is unclear, she also has a known history of hypertension, gout, atrial fibrillation, and chronic kidney disease. 21 patient was seen and examined on the medical floor she is alert and oriented 3 in no apparent distress she is complaining of nausea today otherwise she denies any complaints there is no fever or chills no headache or dizziness no chest pain no shortness of breath no cough no vomiting no abdominal pain no diarrhea no blood in the stools no burning with urination no frequency or urgency no hematuria. Patient is still having significant lower extremity edema, she was started on Lasix drip yesterday however this had to be discontinued due to low blood pressure, she was evaluated today by nephrology again she was started on midodrine for low blood pressure and will be restarted on IV insulin drip. Objective - Vital Signs Vital signs: Vital Signs Temp 97.5 F L 10/02/20 08:00 Pulse 88 10/02/20 08:00 Resp 17 10/02/20 08:00 BP 95/65 10/02/20 08:00 Pulse Ox 90 L 10/02/20 08:00 Intake & Output 10/01/20 10/02/20 10/02/20 18:59 06:59 18:59 Intake Total 118 Output Total 250 Balance -250 118 Weight 105 kg Intake: Oral 118 Output: Urine 250 Other: Voiding Method Bedside Commode # Voids 1 1 # Bowel Movements 1 - Exam In general patient is alert and oriented 3 in no apparent distress HEENT head normocephalic and atraumatic Neck is supple no JVD no goiter no lymphadenopathy Chest exam reveals crackles in both lung bases no wheezing Cardiac exam reveals regular heart sounds S1 and S2 no gallops no murmurs Abdomen is soft nontender no organomegaly with normal bowel sounds Extremity exam reveals significant edema and bilateral lower extremities extend ing up to the thighs and evidence of edema in the upper extremities Neurological examination reveals, no gross focal neurological deficits - Labs CBC & Chem 7: 10/02/20 05:26 10/02/20 05:26 Labs: Abnormal Lab Results - Last 24 Hours (Table) 10/01/20 10/02/20 10/02/20 Range/Units 04:48 05:26 05:26 Hgb 10.7 L (11.4-16.0) gm/dL MCV 74.1 L (80.0-100.0) fL MCH 22.3 L (25.0-35.0) pg MCHC 30.1 L (31.0-37.0) g/dL RDW 17.7 H (11.5-15.5) % Lymphocytes # 0.6 L (1.0-4.8) k/uL Chloride 109 H (98-107) mmol/L BUN 21 H (7-17) mg/dL Creatinine 1.65 H (0.52-1.04) mg/dL Uric Acid 8.5 H (2.9-7.7) mg/dL Calcium 8.1 L (8.4-10.2) mg/dL AST 38 H (14-36) U/L Alkaline Phosphatase 154 H (38-126) U/L Total Protein 6.0 L (6.3-8.2) g/dL Albumin 2.6 L (3.5-5.0) g/dL Assessment and Plan Plan: 1. Acute exacerbation of congestive heart failure will check echocardiogram and consult cardiology, patient started on IV Lasix 40 mg every 8 hours and potassium replacement protocol 2. Severe and worsening lymphedema cause is unclear Will consult vascular surgery 3. Chronic kidney disease, will check kidney ultrasound and monitor kidney function daily 4. Underlying history of atrial fibrillation patient is maintained on Eliquis for stroke prevention, heart rate is well-controlled 5. Underlying history of hypertension 6. Underlying history of gout, will check uric acid level 7. Zeo-gftpffi-nzeplorqi diabetes mellitus millimeters so far maintained on diet only, will check hemoglobin A1c 8. Evidence of hypothyroidism with elevated TSH on presentation will start patient on Synthroid 25 g daily At this time patient is admitted to medical floor Consultation for cardiology, pulmonary, and vascular surgery initiated Will continue with IV Lasix and monitor kidney function closely For DVT prophylaxis patient is on Eliquis GI prophylaxis Will add Protonix Prognosis is guarded will follow closely
[2020-10-02] MEDS: metOLazone 5 MG TAB PO SCH (13:17)
[2020-10-02] MEDS: OXYBUTYNIN XL 5 MG TAB.ER.24 PO SCH (13:17)
[2020-10-02] MEDS: GABAPENTIN 100 MG CAP PO SCH ×3 (13:17→22:43)
[2020-10-02] MEDS: METOPROLOL TARTRATE 50 MG TAB PO SCH ×3 (13:18→22:37)
[2020-10-02] MEDS: FUROSEMIDE 100 MG in SODIUM CHLORIDE 0.9% 90 ML IV SCH (13:19)
[2020-10-02] MEDS: PANTOPRAZOLE 40 MG TABLET PO SCH (13:19)
[2020-10-02] MEDS: APIXABAN 5 MG TAB PO SCH ×2 (13:23→22:43)
[2020-10-02] MEDS: PETROLAT,WHITE/LAN/8-HYDROXYQU 227 GM OINT TOPICAL SCH (13:23)
[2020-10-02] MEDS: MIDODRINE 5 MG TAB PO SCH ×2 (13:33→22:37)
--- NOTE | 2020-10-02 15:51 | CDI ---
Documentation Clarification Form Date: 10/02/2020 03:35:54 PM From: Valencia Ascencio CCS, CCDS Admit Date: 10/02/2020 02:32:00 PM Patient Name: Livier Kilgore Visit Number: [id number] Discharge Date: ATTENTION: The Clinical Documentation Specialists (CDI) and [facility] Coding Staff appreciate your assistance in clarifying documentation. Please respond to the clarification below the line at the bottom and electronically sign. The CDI & [facility] Coding staff will review the response and follow-up if needed. Please note: Queries are made part of the Legal Health Record. If you have any questions, please contact the author of this message via ITS. Dr. Sean Ascencio or Dr. Mesha Kimble: Chronic Kidney Disease is documented in the 10/01 History & Physical and subsequent Progress Notes on 10/02 without further specificity. History/Risk Factors per the Past Medical History in the 09/30 ED Note & the 10/01 History & Physical: CVA/TIA, DM II, Fibromyalgia, Osteoarthritis, Pneumonia, Former smoker. Clinical Indicators 09/30 ED Note: Presented to the ED on 09/30 with SOB & upper & lower extremity edema, fatigue. ED Impression: Congestive Heart Failure Per the 10/01 Nephrology Consult: Acute kidney injury mostly prerenal secondary to cardiorenal syndrome. Acute on Chronic Diastolic CHF with severe Tricuspid Regurgitation and Pulmonary Hypertension. Per the 10/02 Nephrology Progress Note: 2+ extremity edema, Chronic kidney disease noted. Current BUN (23): 18 (10/01): 17 (10/02): 21. Current Creatinine (2/3): 1.44 (10/01): 1.38 (10/02): 1.65 Current GFR (23): 35 (2/): 37 (10/02): 30 Historical GFR: 04/25/2017 59 - >60 Treatment 2: IV Lasix 40 mg x1. 10/01: IV Lasix drip 100 mls @ 5 mls/hr q20H. Kidney function monitored, daily labs, Monitoring blood pressure, Daily I&Os, Daily weights. 10/02: Add Midodrine, 1500 mL fluid restriction and low-salt diet. In order to capture the severity of condition, please clarify the stage of the CKD, if known: o CKD Stage 2 (GFR 60-89) o CKD Stage 3a (GFR 45-59) o CKD Stage 3b (GFR 30-44) o Other, please specify o Unable to determine [Template Last reviewed: April 2020] stage 3a MTDD
[2020-10-02] MEDS ORDERED: MIDODRINE 5 MG TAB PO STA (23:52)
[2020-10-03 01:18] LABS: Appearance,Urine Cloudy (Clear); Bacteria,Urine Rare /hpf; Bilirubin,Urine Negative (Negative); Blood,Urine Small (Negative); Cellular Casts,Urine 6 /lpf (0); Color,Urine Yellow; Glucose,Urine (UA) Negative (Negative); Hyaline Casts,Urine 240 /lpf (0-2); Ketones,Urine Negative (Negative); Leukocyte Esterase,Urine Negative (Negative); Mucus,Urine Few /hpf; Nitrite,Urine Negative (Negative); Protein,Urine 1+ (Negative); RBC,Urine 16 /hpf (0-5); Specific Gravity,Urine 1.011 (1.001-1.035); Squamous Epithelial Cell,Urine <1 /hpf (0-4); Urobilinogen,Urine <2.0 mg/dL (<2.0); WBC,Urine 6 /hpf (0-5)
[2020-10-03] MEDS: LEVOTHYROXINE 25 MCG TAB PO SCH (05:30)
[2020-10-03 07:37] LABS: Glucose,Whole Blood 94 mg/dL (75-99)
[2020-10-03] MEDS: GABAPENTIN 100 MG CAP PO SCH ×3 (08:16→21:47)
[2020-10-03] MEDS: MIDODRINE 5 MG TAB PO SCH ×4 (08:17→21:47)
[2020-10-03] MEDS: PANTOPRAZOLE 40 MG TABLET PO SCH (08:17)
[2020-10-03] MEDS: METOPROLOL TARTRATE 50 MG TAB PO SCH (08:17)
[2020-10-03] MEDS: OXYBUTYNIN XL 5 MG TAB.ER.24 PO SCH (08:17)
[2020-10-03] MEDS: APIXABAN 5 MG TAB PO SCH ×2 (08:17→20:37)
[2020-10-03] MEDS: FUROSEMIDE 100 MG in SODIUM CHLORIDE 0.9% 90 ML IV SCH ×2 (08:18→23:54)
[2020-10-03] MEDS: PETROLAT,WHITE/LAN/8-HYDROXYQU 227 GM OINT TOPICAL SCH (08:24)
[2020-10-03 11:46] LABS: Basophils # (A) 0.06 X 10*3/uL (0.00-0.10); Basophils % (A) 1.2 %; Eosinophils # (A) 0.16 X 10*3/uL (0.04-0.35); Eosinophils % (A) 3.1 %; HCT 35.1 % (37.2-46.3); HGB 9.8 g/dL (12.0-15.0); Lymphocytes # (A) 0.52 X 10*3/uL (0.90-5.00); MCH 21.5 pg (27.0-32.0); MCHC 27.9 g/dL (32.0-37.0); Mean Platelet Volume 10.3 fL (9.5-12.2); Monocytes # (A) 0.75 X 10*3/uL (0.20-1.00); Monocytes % (A) 14.4 %; Neutrophils # (A) 3.68 X 10*3/uL (1.80-7.70); Neutrophils % (A) 70.7 %; Platelet Count 202 X 10*3/uL (140-440); RBC 4.56 X 10*6/uL (4.10-5.20); RDW 18.4 % (11.5-14.5)
--- NOTE | 2020-10-03 11:53 | P.PN ---
Subjective Progress Note Date: 10/03/20 HISTORY OF PRESENT ILLNESS: Patient examined this morning at the bedside. Patient denies chest pain or pressure. He did use to feel short of breath but states it is improving. She remains on a Lasix drip per nephrology. BMP this morning is pending. Fluid balance over the last 24 hours is -437 mL. Blood pressure 93/65. Heart rate in the 80s. PHYSICAL EXAM: VITAL SIGNS: Reviewed. GENERAL: Well-developed in no acute distress. NECK: Supple. No JVD or thyromegaly LUNGS: Respirations even and unlabored. Lungs essentially clear to auscultation, diminished bilaterally. HEART: Irregular rate and rhythm. S1 and S2 heard. Systolic murmur noted. EXTREMITIES: Normal range of motion. No clubbing or cyanosis. Peripheral pulses intact. Chronic edema to bilateral lower extremities ASSESSMENT: Acute exacerbation of chronic diastolic heart failure, Ef 55-60% Chronic persistent atrial fibrillation, on anticoagulation with Eliquis Acute kidney injury History of permanent pacemaker implantation Valvular heart disease Severe pulmonary hypertension Chronic bilateral lower extremity edema PLAN: Nephrology following Continue Lasix drip per nephrology Await BMP Monitor blood pressure Accurate I&O Daily weights Further recommendations pending patient course Nurse practitioner note has been reviewed by physician. Signing provider agrees with the documented findings, assessment, and plan of care. Objective - Vital Signs Vital signs: Vital Signs Temp 97.5 F L 10/03/20 04:26 Pulse 79 10/03/20 04:26 Resp 18 10/03/20 04:26 BP 93/65 10/03/20 04:26 Pulse Ox 91 L 10/03/20 04:26 Intake & Output 10/02/20 10/03/20 10/03/20 18:59 06:59 18:59 Intake Total 118 120 94.917 Output Total 675 Balance 118 -555 94.917 Intake: Intake, IV Titration 60 94.917 Amount Furosemide 100 mg In 60 94.917 Sodium Chloride 0.9% 90 ml @ 5 MG/HR 5 mls/hr IV .Q20H LOLY Rx#:[id number] Oral 118 60 Output: Urine 675 Other: Voiding Method Diaper Diaper Indwelling Catheter Incontinent Incontinent # Bowel Movements 0 - Labs CBC & Chem 7: 10/03/20 06:32 10/02/20 05:26 Labs: Abnormal Lab Results - Last 24 Hours (Table) 10/03/20 10/03/20 Range/Units 00:45 06:32 Hgb 9.8 L (12.0-15.0) g/dL Hct 35.1 L (37.2-46.3) % MCV 77.0 L (80.0-97.0) fL MCH 21.5 L (27.0-32.0) pg MCHC 27.9 L (32.0-37.0) g/dL RDW 18.4 H (11.5-14.5) % Absolute Nucleated RBC 0.06 H (0.00-0.00) X 10*3/uL Lymphocytes # 0.52 L (0.90-5.00) X 10*3/uL NRBC/100 WBC Diff 1.2 H (0.0-0.0) /100 WBCS Urine Appearance Cloudy H (Clear) Urine Protein 1+ H (Negative) Urine Blood Small H (Negative) Urine RBC 16 H (0-5) /hpf Urine WBC 6 H (0-5) /hpf Urine Bacteria Rare H (None) /hpf Hyaline Casts 240 H (0-2) /lpf Urine Mucus Few H (None) /hpf
[2020-10-03 12:05] LABS: Glucose,Whole Blood 106 mg/dL (75-99)
[2020-10-03 12:06] LABS: African American GFR (CKD) 27.2 (60.0-200.0); Albumin/Globulin Ratio 1.15 (1.60-3.17); Anion Gap 10.8 mmol/L (4.00-12.00); BUN/Creat Ratio 12.5 Ratio (12.00-20.00); Carbon Dioxide 24.2 mmol/L (21.6-31.8); Globulin 2.6 g/dL (1.6-3.3); Magnesium 1.6 mg/dL (1.5-2.4); Non-African American GFR(CKD) 23.5 (60.0-200.0); Potassium 3.7 mmol/L (3.5-5.5); Total Bilirubin 0.8 mg/dL (0.2-1.2); Total Protein 5.6 g/dL (6.2-8.2)
--- NOTE | 2020-10-03 14:02 | P.PN ---
Subjective Progress Note Date: 10/03/20 Principal diagnosis: Fluid retention and shortness of breath. 75-year-old female who presents to the emergency department on September 30 at 1532. She comes in complaining of fluid retention, particularly in her lower extremities and upper extremities. In addition, the patient does complain of increasing shortness of breath. She denies any chest pain or chest discomfort. There are no fever or chills. She denies any cough or sputum production. The patient has a history of CVA, diabetes mellitus, fibromyalgia, DJD, pneumonia, chronic dry skin, stress urinary incontinence, hiatal hernia, previous pacemaker insertion, and previous heart catheterization. The patient states that her legs are very heavy for the edema, that she cannot even stand up. She feels very weak and fatigued. The shortness of breath is mild in severity. White count is 4.5, hemoglobin 10.8, hematocrit 36.3, and platelet count 166,000. PT 12.6, INR 1.2, PTT 26.7, sodium 138, potassium 3.9, chlorides 104, CO2 24, anion gap 10, BUN 17, creatinine 1.38 and TSH 6.530. Coronavirus testing was negative On 10/02/2020 patient seen in follow-up on medical surgical she is mildly short of breath, at rest, but no acute distress, room air pulse ox is 90-93%, afebrile, she has quite significant generalized edema especially involving bilateral lower extremities. Nephrology is following, patient is currently on Zaroxolyn, Lasix infusion at 5 mg per hour, and she is in -250 ML fluid balance over the last 24 hours, however her net fluid balance is difficult to estimate. Is on 1500 mL fluid restriction, today's labs have been reviewed, showing sodium of 138, potassium is 4.3, chloride is 109. She is complaining of some nausea, she has a emesis basin in her lap. CT abdomen and pelvis was initially ordered, however is on hold right now. Cardiac was reviewed showing EF 55-60%, moderate concentric LVH. Moderate to severe aortic stenosis, severe pulmonary hypertension, with PA systolic of 89.8 mmHg, and dilation of the inferior vena cava right atrial pressure of greater than 20 mm of mercury. Progress note dated 10/03/2020. 75-year-old female who presented to the emergency department originally on 09/30/2020. She was complaining of fluid retention, particularly in the lower extremities, as well as shortness of breath. Currently, the patient seems be doing reasonably well. She's not receiving any IV fluids. She's not requiring any supplemental oxygen. She remains on Lasix drip at 5 mg per hour. Her weight has not changed over last couple days. She still waiting about 105 kg. She doesn't feel much or any better. She does have a history of ejection fraction of 55-60%, moderate concentric LVH, moderate to severe aortic stenosis, severe pulmonary hypertension, and an estimated PA systolic pressure of 90 mmHg. Today's lab show a white blood count of 5.2, hemoglobin 9.8, hematocrit 35.1, and platelet count of 202,000. Sodium 140, potassium 3.7, chlorides 105, CO2 24, anion gap 11, BUN 25, and creatinine of 2.0. Objective - Vital Signs Vital signs: Vital Signs Temp 97.3 F L 10/03/20 12:36 Pulse 67 10/03/20 12:36 Resp 18 10/03/20 12:36 BP 84/59 10/03/20 12:36 Pulse Ox 94 L 10/03/20 12:36 Intake & Output 10/02/20 10/03/20 10/03/20 18:59 06:59 18:59 Intake Total 118 120 94.917 Output Total 675 Balance 118 -555 94.917 Intake: Intake, IV Titration 60 94.917 Amount Furosemide 100 mg In 60 94.917 Sodium Chloride 0.9% 90 ml @ 5 MG/HR 5 mls/hr IV .Q20H [facility] Rx#:[id number] Oral 118 60 Output: Urine 675 Other: Voiding Method Diaper Diaper Indwelling Catheter Incontinent Incontinent # Bowel Movements 0 - Exam No acute distress, oriented 3. Currently, patient not receiving any supplemental oxygen. HEENT examination is grossly unremarkable. Mucous membranes are moist. No oral lesions. Neck supple. Full range of motion. No adenopathy thyromegaly or neck vein distention. Cardiovascular examination reveals regular rhythm rate. S1-S2 normal. No S3 or S4. No discernible murmur noted. Heart rate is 67 bpm. Lungs reveal mostly clear breath sounds. Her sounds are equal bilaterally. Scattered rhonchi and crackles, very mild, are noted. Abdomen obese, soft, without masses. Bowel sounds noted. Extremities are intact. Significant edema of both the upper extremities and lower extremities are noted. The patient in fact has diffuse anasarca. Skin reveals multiple areas of ecchymoses. Neurologic examination is brief but nonfocal. - Labs CBC & Chem 7: 10/03/20 06:32 10/03/20 06:32 Labs: Abnormal Lab Results - Last 24 Hours (Table) 10/03/20 10/03/20 10/03/20 Range/Units 00:45 06:32 06:32 Hgb 9.8 L (12.0-15.0) g/dL Hct 35.1 L (37.2-46.3) % MCV 77.0 L (80.0-97.0) fL MCH 21.5 L (27.0-32.0) pg MCHC 27.9 L (32.0-37.0) g/dL RDW 18.4 H (11.5-14.5) % Absolute Nucleated RBC 0.06 H (0.00-0.00) X 10*3/uL Lymphocytes # 0.52 L (0.90-5.00) X 10*3/uL NRBC/100 WBC Diff 1.2 H (0.0-0.0) /100 WBCS Creatinine 2.0 H (0.6-1.5) mg/dL Est GFR (CKD-EPI)AfAm 27.2 L (60.0-200.0) Est GFR (CKD-EPI)NonAf 23.5 L (60.0-200.0) POC Glucose (mg/dL) (75-99) mg/dL Calcium 8.0 L (8.7-10.3) mg/dL AST 50 H (13-35) U/L Alkaline Phosphatase 175 H (41-126) U/L Total Protein 5.6 L (6.2-8.2) g/dL Albumin 3.00 L (3.80-4.90) g/dL Albumin/Globulin Ratio 1.15 L (1.60-3.17) g/dL Urine Appearance Cloudy H (Clear) Urine Protein 1+ H (Negative) Urine Blood Small H (Negative) Urine RBC 16 H (0-5) /hpf Urine WBC 6 H (0-5) /hpf Urine Bacteria Rare H (None) /hpf Hyaline Casts 240 H (0-2) /lpf Urine Mucus Few H (None) /hpf 10/03/20 Range/Units 11:41 Hgb (12.0-15.0) g/dL Hct (37.2-46.3) % MCV (80.0-97.0) fL MCH (27.0-32.0) pg MCHC (32.0-37.0) g/dL RDW (11.5-14.5) % Absolute Nucleated RBC (0.00-0.00) X 10*3/uL Lymphocytes # (0.90-5.00) X 10*3/uL NRBC/100 WBC Diff (0.0-0.0) /100 WBCS Creatinine (0.6-1.5) mg/dL Est GFR (CKD-EPI)AfAm (60.0-200.0) Est GFR (CKD-EPI)NonAf (60.0-200.0) POC Glucose (mg/dL) 106 H (75-99) mg/dL Calcium (8.7-10.3) mg/dL AST (13-35) U/L Alkaline Phosphatase (41-126) U/L Total Protein (6.2-8.2) g/dL Albumin (3.80-4.90) g/dL Albumin/Globulin Ratio (1.60-3.17) g/dL Urine Appearance (Clear) Urine Protein (Negative) Urine Blood (Negative) Urine RBC (0-5) /hpf Urine WBC (0-5) /hpf Urine Bacteria (None) /hpf Hyaline Casts (0-2) /lpf Urine Mucus (None) /hpf Assessment and Plan Assessment: Acute on chronic diastolic congestive heart failure. Diffuse body edema and anasarca, which quickly to the lower extremities. Chronic venous stasis and hyperpigmentation of the lower extremities, secondary to venous incompetence. Obesity. History of subaortic web and outflow track obstruction. History of chronic atrial fibrillation. Severe pulmonary hypertension. History of CVA. History of diabetes mellitus. History of fibromyalgia. History of hiatal hernia. Stress urinary incontinence. History of osteoarthritis. Chronic dry skin. Plan: Plan dated 10/03/2020. Currently, the patient is on a Lasix drip, at 5 mg an hour. The patient is not receiving any additional IV fluids. Also, the patient is not receiving any supplemental oxygen therapy. Currently, the patient's weight remains about the same over the last couple of days, 105 kg. The patient may benefit from more aggressive diuresis. She is having minimal pulmonary complaints at this time. No additional recommendations are made. Labs, x-rays, and medications are all reviewed. Prognosis is guarded. Blood pressures have been right around 90 systolic. Time with Patient: Less than 30
--- NOTE | 2020-10-03 14:40 | P.PN ---
Subjective Progress Note Date: 10/03/20 Livier Kilgore, is a 75-year-old female, who presented to [facility] emergency room with a chief complaint of worsening shortness of breath and bilateral lower extremity edema she was evaluated in the emergency room vital examination on presentation reveals a temperature of 97.9 pulse 91 respiration 16 and blood pressure 119/75 pulse ox 95% on room air her white blood count was 4.5 hemoglobin 10.9 platelet count 166 BUN was 18 creatinine 1.44 alkaline phosphatase 160 albumin and low at 3.2 TSH elevated at 6.53 coronavirus PCR was negative, chest x-ray revealed evidence of congestive heart failure and pulmonary edema, she was admitted to telemetry floor, cardiology consultation was requested. Patient has been having worsening lower extremity edema over the last few months with evidence of lymphedema, cause is unclear, she also has a known history of hypertension, gout, atrial fibrillation, and chronic kidney disease. On 10/02/2020 patient was seen and examined on the medical floor she is alert and oriented 3 in no apparent distress she is complaining of nausea today otherwise she denies any complaints there is no fever or chills no headache or dizziness no chest pain no shortness of breath no cough no vomiting no abdominal pain no diarrhea no blood in the stools no burning with urination no frequency or urgency no hematuria. Patient is still having significant lower extremity edema, she was started on Lasix drip yesterday however this had to be discontinued due to low blood pressure, she was evaluated today by nephrology again she was started on midodrine for low blood pressure and will be restarted on IV lasix drip. On 10/03/2020 patient was seen and examined on the medical floor she is alert and oriented 3 in no distress she is still complaining of severe bilateral lower extremity swelling otherwise no complaints at this time there is no fever or chills no headache or dizziness no chest pain, no shortness of breath no cough no nausea or vomiting no abdominal pain no diarrhea no blood in the stools no burning with urination no frequency or urgency and no hematuria. Blood pressure is low, she was started on midodrine yesterday she is still maintained on IV Lasix drip. Objective - Vital Signs Vital signs: Vital Signs Temp 97.3 F L 10/03/20 12:36 Pulse 67 10/03/20 12:36 Resp 18 10/03/20 12:36 BP 84/59 10/03/20 12:36 Pulse Ox 94 L 10/03/20 12:36 Intake & Output 10/02/20 10/03/20 10/03/20 18:59 06:59 18:59 Intake Total 118 120 94.917 Output Total 675 Balance 118 -555 94.917 Intake: Intake, IV Titration 60 94.917 Amount Furosemide 100 mg In 60 94.917 Sodium Chloride 0.9% 90 ml @ 5 MG/HR 5 mls/hr IV .Q20H [facility] Rx#:[id number] Oral 118 60 Output: Urine 675 Other: Voiding Method Diaper Diaper Indwelling Catheter Incontinent Incontinent # Bowel Movements 0 - Exam In general patient is alert and oriented 3 in no apparent distress HEENT head normocephalic and atraumatic Neck is supple no JVD no goiter no lymphadenopathy Chest exam reveals crackles in both lung bases no wheezing Cardiac exam reveals regular heart sounds S1 and S2 no gallops no murmurs Abdomen is soft nontender no organomegaly with normal bowel sounds Extremity exam reveals significant edema and bilateral lower extremities extending up to the thighs and evidence of edema in the upper extremities Neurological examination reveals, no gross focal neurological deficits - Labs CBC & Chem 7: 10/03/20 06:32 10/03/20 06:32 Labs: Abnormal Lab Results - Last 24 Hours (Table) 10/03/20 10/03/20 10/03/20 Range/Units 00:45 06:32 06:32 Hgb 9.8 L (12.0-15.0) g/dL Hct 35.1 L (37.2-46.3) % MCV 77.0 L (80.0-97.0) fL MCH 21.5 L (27.0-32.0) pg MCHC 27.9 L (32.0-37.0) g/dL RDW 18.4 H (11.5-14.5) % Absolute Nucleated RBC 0.06 H (0.00-0.00) X 10*3/uL Lymphocytes # 0.52 L (0.90-5.00) X 10*3/uL NRBC/100 WBC Diff 1.2 H (0.0-0.0) /100 WBCS Creatinine 2.0 H (0.6-1.5) mg/dL Est GFR (CKD-EPI)AfAm 27.2 L (60.0-200.0) Est GFR (CKD-EPI)NonAf 23.5 L (60.0-200.0) POC Glucose (mg/dL) (75-99) mg/dL Calcium 8.0 L (8.7-10.3) mg/dL AST 50 H (13-35) U/L Alkaline Phosphatase 175 H (41-126) U/L Total Protein 5.6 L (6.2-8.2) g/dL Albumin 3.00 L (3.80-4.90) g/dL Albumin/Globulin Ratio 1.15 L (1.60-3.17) g/dL Urine Appearance Cloudy H (Clear) Urine Protein 1+ H (Negative) Urine Blood Small H (Negative) Urine RBC 16 H (0-5) /hpf Urine WBC 6 H (0-5) /hpf Urine Bacteria Rare H (None) /hpf Hyaline Casts 240 H (0-2) /lpf Urine Mucus Few H (None) /hpf 10/03/20 Range/Units 11:41 Hgb (12.0-15.0) g/dL Hct (37.2-46.3) % MCV (80.0-97.0) fL MCH (27.0-32.0) pg MCHC (32.0-37.0) g/dL RDW (11.5-14.5) % Absolute Nucleated RBC (0.00-0.00) X 10*3/uL Lymphocytes # (0.90-5.00) X 10*3/uL NRBC/100 WBC Diff (0.0-0.0) /100 WBCS Creatinine (0.6-1.5) mg/dL Est GFR (CKD-EPI)AfAm (60.0-200.0) Est GFR (CKD-EPI)NonAf (60.0-200.0) POC Glucose (mg/dL) 106 H (75-99) mg/dL Calcium (8.7-10.3) mg/dL AST (13-35) U/L Alkaline Phosphatase (41-126) U/L Total Protein (6.2-8.2) g/dL Albumin (3.80-4.90) g/dL Albumin/Globulin Ratio (1.60-3.17) g/dL Urine Appearance (Clear) Urine Protein (Negative) Urine Blood (Negative) Urine RBC (0-5) /hpf Urine WBC (0-5) /hpf Urine Bacteria (None) /hpf Hyaline Casts (0-2) /lpf Urine Mucus (None) /hpf Assessment and Plan Plan: 1. Acute exacerbation of congestive heart failure will check echocardiogram and consult cardiology, patient started on IV Lasix 40 mg every 8 hours and potassium replacement protocol 2. Severe and worsening lymphedema cause is unclear Will consult vascular surgery 3. Chronic kidney disease, will check kidney ultrasound and monitor kidney function daily 4. Underlying history of atrial fibrillation patient is maintained on Eliquis for stroke prevention, heart rate is well-controlled 5. Underlying history of hypertension 6. Underlying history of gout, will check uric acid level 7. [id number] diabetes mellitus millimeters so far maintained on diet only, will check hemoglobin A1c 8. Evidence of hypothyroidism with elevated TSH on presentation will start patient on Synthroid 25 g daily At this time patient is admitted to medical floor Consultation for cardiology, pulmonary, and vascular surgery initiated Will continue with IV Lasix and monitor kidney function closely For DVT prophylaxis patient is on Eliquis GI prophylaxis Will add Protonix Prognosis is guarded will follow closely
--- NOTE | 2020-10-03 15:58 | P.PN ---
Subjective Progress Note Date: 10/03/20 Follow-up for acute kidney injury. Renal function worsening, low blood pressures. Urine output slow. Objective - Vital Signs Vital signs: Vital Signs Temp 97.3 F L 10/03/20 12:36 Pulse 67 10/03/20 12:36 Resp 18 10/03/20 12:36 BP 84/59 10/03/20 12:36 Pulse Ox 94 L 10/03/20 12:36 Intake & Output 10/02/20 10/03/20 10/03/20 18:59 06:59 18:59 Intake Total 118 120 94.917 Output Total 675 Balance 118 -555 94.917 Weight 105.959 kg Intake: Intake, IV Titration 60 94.917 Amount Furosemide 100 mg In 60 94.917 Sodium Chloride 0.9% 90 ml @ 5 MG/HR 5 mls/hr IV .Q20H [facility] Rx#:[id number] Oral 118 60 Output: Urine 675 Other: Voiding Method Diaper Diaper Indwelling Catheter Incontinent Incontinent # Bowel Movements 0 - Exam No acute distress S1-S2 heard Decreased breath sounds Edema - Labs CBC & Chem 7: 10/03/20 06:32 10/03/20 06:32 Labs: Abnormal Lab Results - Last 24 Hours (Table) 10/03/20 10/03/20 10/03/20 Range/Units 00:45 06:32 06:32 Hgb 9.8 L (12.0-15.0) g/dL Hct 35.1 L (37.2-46.3) % MCV 77.0 L (80.0-97.0) fL MCH 21.5 L (27.0-32.0) pg MCHC 27.9 L (32.0-37.0) g/dL RDW 18.4 H (11.5-14.5) % Absolute Nucleated RBC 0.06 H (0.00-0.00) X 10*3/uL Lymphocytes # 0.52 L (0.90-5.00) X 10*3/uL NRBC/100 WBC Diff 1.2 H (0.0-0.0) /100 WBCS Creatinine 2.0 H (0.6-1.5) mg/dL Est GFR (CKD-EPI)AfAm 27.2 L (60.0-200.0) Est GFR (CKD-EPI)NonAf 23.5 L (60.0-200.0) POC Glucose (mg/dL) (75-99) mg/dL Calcium 8.0 L (8.7-10.3) mg/dL AST 50 H (13-35) U/L Alkaline Phosphatase 175 H (41-126) U/L Total Protein 5.6 L (6.2-8.2) g/dL Albumin 3.00 L (3.80-4.90) g/dL Albumin/Globulin Ratio 1.15 L (1.60-3.17) g/dL Urine Appearance Cloudy H (Clear) Urine Protein 1+ H (Negative) Urine Blood Small H (Negative) Urine RBC 16 H (0-5) /hpf Urine WBC 6 H (0-5) /hpf Urine Bacteria Rare H (None) /hpf Hyaline Casts 240 H (0-2) /lpf Urine Mucus Few H (None) /hpf 10/03/20 Range/Units 11:41 Hgb (12.0-15.0) g/dL Hct (37.2-46.3) % MCV (80.0-97.0) fL MCH (27.0-32.0) pg MCHC (32.0-37.0) g/dL RDW (11.5-14.5) % Absolute Nucleated RBC (0.00-0.00) X 10*3/uL Lymphocytes # (0.90-5.00) X 10*3/uL NRBC/100 WBC Diff (0.0-0.0) /100 WBCS Creatinine (0.6-1.5) mg/dL Est GFR (CKD-EPI)AfAm (60.0-200.0) Est GFR (CKD-EPI)NonAf (60.0-200.0) POC Glucose (mg/dL) 106 H (75-99) mg/dL Calcium (8.7-10.3) mg/dL AST (13-35) U/L Alkaline Phosphatase (41-126) U/L Total Protein (6.2-8.2) g/dL Albumin (3.80-4.90) g/dL Albumin/Globulin Ratio (1.60-3.17) g/dL Urine Appearance (Clear) Urine Protein (Negative) Urine Blood (Negative) Urine RBC (0-5) /hpf Urine WBC (0-5) /hpf Urine Bacteria (None) /hpf Hyaline Casts (0-2) /lpf Urine Mucus (None) /hpf Assessment and Plan Assessment: #1 acute kidney injury secondary to type I CRS. Baseline creatinine 1.0 MG per DL. -ATN is a possibility with hypotensive episodes. #2 hypotensive episodes #3 acute on chronic diastolic CHF #4 volume overload #5 A. fib with RVR, rate controlled Plan: #1 continue with Lasix drip at 5 ML's an hour. Stop metolazone. #2 decrease metoprolol to 12.5 mg twice a day. #3 increase midodrine to 10 mg 3 times a day. #4 add IV albumin 4 adequate diuresis. #5 check urine studies.
[2020-10-03] MEDS: ALBUMIN HUMAN 25% 50 ML in EMPTY BAG 1 BAG IVPB SCH ×2 (16:44→20:37)
[2020-10-03 17:12] LABS: Glucose,Whole Blood 114 mg/dL (75-99)
[2020-10-03] MEDS: METOPROLOL TARTRATE 12.5 MG TAB PO SCH (20:34)
[2020-10-03 21:07] LABS: Glucose,Whole Blood 132 mg/dL (75-99)
[2020-10-03 21:48] LABS: Amorphous Sediment,Urine Rare /hpf; Appearance,Urine Cloudy (Clear); Bacteria,Urine Rare /hpf; Bilirubin,Urine Negative (Negative); Blood,Urine Large (Negative); Budding Yeast,Urine Occasional /hpf; Color,Urine Yellow; Glucose,Urine (UA) Negative (Negative); Hyaline Casts,Urine 51 /lpf (0-2); Ketones,Urine Negative (Negative); Leukocyte Esterase,Urine Moderate (Negative); Mucus,Urine Rare /hpf; Nitrite,Urine Negative (Negative); Protein,Urine 1+ (Negative); RBC,Urine >182 /hpf (0-5); Squamous Epithelial Cell,Urine <1 /hpf (0-4); WBC,Urine 6 /hpf (0-5)
[2020-10-04] MEDS: LEVOTHYROXINE 25 MCG TAB PO SCH (06:03)
[2020-10-04 07:19] LABS: Glucose,Whole Blood 87 mg/dL (75-99)
[2020-10-04] MEDS: PANTOPRAZOLE 40 MG TABLET PO SCH (07:56)
[2020-10-04] MEDS: APIXABAN 5 MG TAB PO SCH ×2 (07:56→21:29)
[2020-10-04] MEDS: GABAPENTIN 100 MG CAP PO SCH ×3 (07:56→21:29)
[2020-10-04] MEDS: ALBUMIN HUMAN 25% 50 ML in EMPTY BAG 1 BAG IVPB SCH ×2 (07:56→21:30)
[2020-10-04] MEDS: OXYBUTYNIN XL 5 MG TAB.ER.24 PO SCH (07:57)
[2020-10-04] MEDS: MIDODRINE 5 MG TAB PO SCH ×3 (07:57→21:29)
[2020-10-04] MEDS: METOPROLOL TARTRATE 12.5 MG TAB PO SCH ×2 (07:58→21:30)
[2020-10-04] MEDS: PETROLAT,WHITE/LAN/8-HYDROXYQU 227 GM OINT TOPICAL SCH (07:59)
[2020-10-04 10:33] LABS: Basophils # (A) 0.08 X 10*3/uL (0.00-0.10); Basophils % (A) 1.3 %; Eosinophils # (A) 0.32 X 10*3/uL (0.04-0.35); Eosinophils % (A) 5.3 %; HCT 36.8 % (37.2-46.3); HGB 10.2 g/dL (12.0-15.0); Lymphocytes # (A) 0.69 X 10*3/uL (0.90-5.00); Lymphocytes % (A) 11.3 %; MCH 21.4 pg (27.0-32.0); MCHC 27.7 g/dL (32.0-37.0); MCV 77.3 fL (80.0-97.0); Monocytes # (A) 0.98 X 10*3/uL (0.20-1.00); Monocytes % (A) 16.1 %; Neutrophils # (A) 3.97 X 10*3/uL (1.80-7.70); Neutrophils % (A) 65.3 %; Platelet Count 214 X 10*3/uL (140-440); RBC 4.76 X 10*6/uL (4.10-5.20); RDW 19.1 % (11.5-14.5); WBC 6.08 X 10*3/uL (4.50-10.00)
--- NOTE | 2020-10-04 10:35 | P.PN ---
Subjective Progress Note Date: 10/04/20 Livier Kilgore, is a 75-year-old female, who presented to [facility] emergency room with a chief complaint of worsening shortness of breath and bilateral lower extremity edema she was evaluated in the emergency room vital examination on presentation reveals a temperature of 97.9 pulse 91 respiration 16 and blood pressure 119/75 pulse ox 95% on room air her white blood count was 4.5 hemoglobin 10.9 platelet count 166 BUN was 18 creatinine 1.44 alkaline phosphatase 160 albumin and low at 3.2 TSH elevated at 6.53 coronavirus PCR was negative, chest x-ray revealed evidence of congestive heart failure and pulmonary edema, she was admitted to telemetry floor, cardiology consultation was requested. Patient has been having worsening lower extremity edema over the last few months with evidence of lymphedema, cause is unclear, she also has a known history of hypertension, gout, atrial fibrillation, and chronic kidney disease. On 10/02/2020 patient was seen and examined on the medical floor she is alert and oriented 3 in no apparent distress she is complaining of nausea today otherwise she denies any complaints there is no fever or chills no headache or dizziness no chest pain no shortness of breath no cough no vomiting no abdominal pain no diarrhea no blood in the stools no burning with urination no frequency or urgency no hematuria. Patient is still having significant lower extremity edema, she was started on Lasix drip yesterday however this had to be discontinued due to low blood pressure, she was evaluated today by nephrology again she was started on midodrine for low blood pressure and will be restarted on IV lasix drip. On 10/03/2020 patient was seen and examined on the medical floor she is alert and oriented 3 in no distress she is still complaining of severe bilateral lower extremity swelling otherwise no complaints at this time there is no fever or chills no headache or dizziness no chest pain, no shortness of breath no cough no nausea or vomiting no abdominal pain no diarrhea no blood in the stools no burning with urination no frequency or urgency and no hematuria. Blood pressure is low, she was started on midodrine yesterday she is still maintained on IV Lasix drip. On 10/04/2020 patient is alert and oriented 3 resting comfortably in bed patient remains on Lasix drip. UA positive for leukocyte esterase. Patient started on Rocephin. Urine culture ordered. PT OT consult area patient does live independently. Surgical consult possible placement. Dr. gray. consulted for possible inpatient rehab. Nephrology services are following. Weight down from 105.9 kg to 102.3 kg. Johnson catheter is in place. At this time patient denies chest pain or shortness breath. Patient denies nausea vomiting or diarrhea. Objective - Vital Signs Vital signs: Vital Signs Temp 97.4 F L 10/04/20 04:40 Pulse 58 L 10/04/20 04:40 Resp 16 10/04/20 04:40 BP 93/58 10/04/20 04:40 Pulse Ox 94 L 10/04/20 04:40 Intake & Output 10/03/20 10/04/20 10/04/20 18:59 06:59 18:59 Intake Total 508.917 368 Output Total 400 350 Balance 108.917 18 Weight 102.3 kg Intake: Intake, IV Titration 94.917 128 Amount Albumin Human 25% 50 ml 50 In Empty Bag 1 bag @ 50 mls/hr IVPB BID LOLY Rx#: [id number] Furosemide 100 mg In 94.917 78 Sodium Chloride 0.9% 90 ml @ 5 MG/HR 5 mls/hr IV .Q20H LOLY Rx#:[id number] Oral 414 240 Output: Urine 400 350 Uretheral (Johnson) 400 Other: Voiding Method Indwelling Catheter Indwelling Catheter Indwelling Catheter # Bowel Movements 0 - Exam In general patient is alert and oriented 3 in no apparent distress HEENT head normocephalic and atraumatic Neck is supple no JVD no goiter no lymphadenopathy Chest exam reveals crackles in both lung bases no wheezing Cardiac exam reveals regular heart sounds S1 and S2 no gallops no murmurs Abdomen is soft nontender no organomegaly with normal bowel sounds Extremity exam reveals significant edema and bilateral lower extremities ext ending up to the thighs and evidence of edema in the upper extremities Neurological examination reveals, no gross focal neurological deficits - Labs CBC & Chem 7: 10/03/20 06:32 10/03/20 06:32 Labs: Abnormal Lab Results - Last 24 Hours (Table) 10/03/20 10/03/20 10/03/20 Range/Units 06:32 06:32 11:41 Hgb 9.8 L (12.0-15.0) g/dL Hct 35.1 L (37.2-46.3) % MCV 77.0 L (80.0-97.0) fL MCH 21.5 L (27.0-32.0) pg MCHC 27.9 L (32.0-37.0) g/dL RDW 18.4 H (11.5-14.5) % Absolute Nucleated RBC 0.06 H (0.00-0.00) X 10*3/uL Lymphocytes # 0.52 L (0.90-5.00) X 10*3/uL NRBC/100 WBC Diff 1.2 H (0.0-0.0) /100 WBCS Creatinine 2.0 H (0.6-1.5) mg/dL Est GFR (CKD-EPI)AfAm 27.2 L (60.0-200.0) Est GFR (CKD-EPI)NonAf 23.5 L (60.0-200.0) POC Glucose (mg/dL) 106 H (75-99) mg/dL Calcium 8.0 L (8.7-10.3) mg/dL AST 50 H (13-35) U/L Alkaline Phosphatase 175 H (41-126) U/L Total Protein 5.6 L (6.2-8.2) g/dL Albumin 3.00 L (3.80-4.90) g/dL Albumin/Globulin Ratio 1.15 L (1.60-3.17) g/dL Urine Appearance (Clear) Urine Protein (Negative) Urine Blood (Negative) Ur Leukocyte Esterase (Negative) Urine RBC (0-5) /hpf Urine WBC (0-5) /hpf Amorphous Sediment (None) /hpf Urine Bacteria (None) /hpf Hyaline Casts (0-2) /lpf Urine Mucus (None) /hpf Urine Yeast (Budding) (None) /hpf 10/03/20 10/03/20 10/03/20 Range/Units 17:06 20:47 21:23 Hgb (12.0-15.0) g/dL Hct (37.2-46.3) % MCV (80.0-97.0) fL MCH (27.0-32.0) pg MCHC (32.0-37.0) g/dL RDW (11.5-14.5) % Absolute Nucleated RBC (0.00-0.00) X 10*3/uL Lymphocytes # (0.90-5.00) X 10*3/uL NRBC/100 WBC Diff (0.0-0.0) /100 WBCS Creatinine (0.6-1.5) mg/dL Est GFR (CKD-EPI)AfAm (60.0-200.0) Est GFR (CKD-EPI)NonAf (60.0-200.0) POC Glucose (mg/dL) 114 H 132 H (75-99) mg/dL Calcium (8.7-10.3) mg/dL AST (13-35) U/L Alkaline Phosphatase (41-126) U/L Total Protein (6.2-8.2) g/dL Albumin (3.80-4.90) g/dL Albumin/Globulin Ratio (1.60-3.17) g/dL Urine Appearance Cloudy H (Clear) Urine Protein 1+ H (Negative) Urine Blood Large H (Negative) Ur Leukocyte Esterase Moderate H (Negative) Urine RBC >182 H (0-5) /hpf Urine WBC 6 H (0-5) /hpf Amorphous Sediment Rare H (None) /hpf Urine Bacteria Rare H (None) /hpf Hyaline Casts 51 H (0-2) /lpf Urine Mucus Rare H (None) /hpf Urine Yeast (Budding) Occasional H (None) /hpf Assessment and Plan Plan: 1. Acute exacerbation of congestive heart failure will check echocardiogram and consult cardiology, patient started on Lasix. 2-D echo completed showing 55-60% 2. Severe and worsening lymphedema cause is unclear Will consult vascular surgery. evaluated by vascular surgery no acute indications for any vascular surgical intervention 3. Chronic kidney disease, will check kidney ultrasound and monitor kidney function daily 4. Underlying history of atrial fibrillation patient is maintained on Eliquis for stroke prevention, heart rate is well-controlled 5. Underlying history of hypertension 6. Underlying history of gout, will check uric acid level 7. [id number] diabetes mellitus millimeters so far maintained on diet only, will check hemoglobin A1c 8. Evidence of hypothyroidism with elevated TSH on presentation will start patient on Synthroid 25 g daily 9. Urinary tract infection. Patient started on Rocephin. Urine culture ordered. At this time patient is admitted to medical floor Consultation for cardiology, pulmonary, and vascular surgery initiated Will continue with IV Lasix and monitor kidney function closely For DVT prophylaxis patient is on Eliquis GI prophylaxis Will add Protonix Patient will likely need placement upon discharge. PT OT consulted Dr. Gray consulted for possible inpatient rehab Prognosis is guarded will follow closely
[2020-10-04 11:07] LABS: Albumin 3.3 g/dL (3.80-4.90); Albumin/Globulin Ratio 1.38 (1.60-3.17); Anion Gap 11.3 mmol/L (4.00-12.00); BUN/Creat Ratio 11.74 Ratio (12.00-20.00); Carbon Dioxide 21.7 mmol/L (21.6-31.8); Globulin 2.4 g/dL (1.6-3.3); Non-African American GFR(CKD) 19.8 (60.0-200.0); Potassium 3.7 mmol/L (3.5-5.5); Total Bilirubin 0.7 mg/dL (0.2-1.2); Total Protein 5.7 g/dL (6.2-8.2)
[2020-10-04 12:06] LABS: Glucose,Whole Blood 87 mg/dL (75-99)
--- NOTE | 2020-10-04 12:52 | P.PN ---
Subjective Progress Note Date: 10/04/20 HISTORY OF PRESENT ILLNESS: Patient examined this morning at the bedside. Patient denies chest pain or pressure. Patient denies shortness of breath. She remains on a Lasix drip per nephrology. Creatinine 2.3, up from 2.0 yesterday. Fluid balance over the last 24 hours is +126 mL. Blood pressure 95/63. Heart rate in the 60s. PHYSICAL EXAM: VITAL SIGNS: Reviewed. GENERAL: Well-developed in no acute distress. NECK: Supple. No JVD or thyromegaly LUNGS: Respirations even and unlabored. Lungs essentially clear to auscultation, diminished bilaterally. HEART: Irregular rate and rhythm. S1 and S2 heard. Systolic murmur noted. EXTREMITIES: Normal range of motion. No clubbing or cyanosis. Peripheral pulses intact. Chronic edema to bilateral lower extremities ASSESSMENT: Acute exacerbation of chronic diastolic heart failure, Ef 55-60% Chronic persistent atrial fibrillation, on anticoagulation with Eliquis Acute kidney injury History of permanent pacemaker implantation Valvular heart disease Severe pulmonary hypertension Chronic bilateral lower extremity edema PLAN: Nephrology following Continue Lasix drip per nephrology Continue to monitor kidney function Monitor blood pressure Accurate I&O Daily weights Further recommendations pending patient course Nurse practitioner note has been reviewed by physician. Signing provider agrees with the documented findings, assessment, and plan of care. Objective - Vital Signs Vital signs: Vital Signs Temp 98 F 10/04/20 12:34 Pulse 61 10/04/20 12:34 Resp 16 10/04/20 12:34 BP 95/63 10/04/20 12:34 Pulse Ox 95 10/04/20 12:34 Intake & Output 10/03/20 10/04/20 10/04/20 18:59 06:59 18:59 Intake Total 508.917 368 Output Total 400 350 Balance 108.917 18 Weight 102.3 kg Intake: Intake, IV Titration 94.917 128 Amount Albumin Human 25% 50 ml 50 In Empty Bag 1 bag @ 50 mls/hr IVPB BID LOLY Rx#: [id number] Furosemide 100 mg In 94.917 78 Sodium Chloride 0.9% 90 ml @ 5 MG/HR 5 mls/hr IV .Q20H LOLY Rx#:[id number] Oral 414 240 Output: Urine 400 350 Uretheral (Johnson) 400 Other: Voiding Method Indwelling Catheter Indwelling Catheter Indwelling Catheter # Bowel Movements 0 - Labs CBC & Chem 7: 10/04/20 04:55 10/04/20 04:55 Labs: Abnormal Lab Results - Last 24 Hours (Table) 10/03/20 10/03/20 10/03/20 Range/Units 17:06 20:47 21:23 Hgb (12.0-15.0) g/dL Hct (37.2-46.3) % MCV (80.0-97.0) fL MCH (27.0-32.0) pg MCHC (32.0-37.0) g/dL RDW (11.5-14.5) % Absolute Nucleated RBC (0.00-0.00) X 10*3/uL Lymphocytes # (0.90-5.00) X 10*3/uL NRBC/100 WBC Diff (0.0-0.0) /100 WBCS Creatinine (0.6-1.5) mg/dL Est GFR (CKD-EPI)AfAm (60.0-200.0) Est GFR (CKD-EPI)NonAf (60.0-200.0) BUN/Creatinine Ratio (12.00-20.00) Ratio POC Glucose (mg/dL) 114 H 132 H (75-99) mg/dL Calcium (8.7-10.3) mg/dL AST (13-35) U/L Alkaline Phosphatase (41-126) U/L Total Protein (6.2-8.2) g/dL Albumin (3.80-4.90) g/dL Albumin/Globulin Ratio (1.60-3.17) g/dL Urine Appearance Cloudy H (Clear) Urine Protein 1+ H (Negative) Urine Blood Large H (Negative) Ur Leukocyte Esterase Moderate H (Negative) Urine RBC >182 H (0-5) /hpf Urine WBC 6 H (0-5) /hpf Amorphous Sediment Rare H (None) /hpf Urine Bacteria Rare H (None) /hpf Hyaline Casts 51 H (0-2) /lpf Urine Mucus Rare H (None) /hpf Urine Yeast (Budding) Occasional H (None) /hpf 10/04/20 10/04/20 Range/Units 04:55 04:55 Hgb 10.2 L (12.0-15.0) g/dL Hct 36.8 L (37.2-46.3) % MCV 77.3 L (80.0-97.0) fL MCH 21.4 L (27.0-32.0) pg MCHC 27.7 L (32.0-37.0) g/dL RDW 19.1 H (11.5-14.5) % Absolute Nucleated RBC 0.12 H (0.00-0.00) X 10*3/uL Lymphocytes # 0.69 L (0.90-5.00) X 10*3/uL NRBC/100 WBC Diff 2.0 H (0.0-0.0) /100 WBCS Creatinine 2.3 H (0.6-1.5) mg/dL Est GFR (CKD-EPI)AfAm 23.0 L (60.0-200.0) Est GFR (CKD-EPI)NonAf 19.8 L (60.0-200.0) BUN/Creatinine Ratio 11.74 L (12.00-20.00) Ratio POC Glucose (mg/dL) (75-99) mg/dL Calcium 8.0 L (8.7-10.3) mg/dL AST 60 H (13-35) U/L Alkaline Phosphatase 180 H (41-126) U/L Total Protein 5.7 L (6.2-8.2) g/dL Albumin 3.30 L (3.80-4.90) g/dL Albumin/Globulin Ratio 1.38 L (1.60-3.17) g/dL Urine Appearance (Clear) Urine Protein (Negative) Urine Blood (Negative) Ur Leukocyte Esterase (Negative) Urine RBC (0-5) /hpf Urine WBC (0-5) /hpf Amorphous Sediment (None) /hpf Urine Bacteria (None) /hpf Hyaline Casts (0-2) /lpf Urine Mucus (None) /hpf Urine Yeast (Budding) (None) /hpf
--- NOTE | 2020-10-04 13:31 | P.PN ---
Subjective Progress Note Date: 10/04/20 Principal diagnosis: Acute on chronic diastolic congestive heart failure 75-year-old female who presents to the emergency department on September 30 at 1532. She comes in complaining of fluid retention, particularly in her lower extremities and upper extremities. In addition, the patient does complain of increasing shortness of breath. She denies any chest pain or chest discomfort. There are no fever or chills. She denies any cough or sputum production. The patient has a history of CVA, diabetes mellitus, fibromyalgia, DJD, pneumonia, chronic dry skin, stress urinary incontinence, hiatal hernia, previous pacemaker insertion, and previous heart catheterization. The patient states that her legs are very heavy for the edema, that she cannot even stand up. She feels very weak and fatigued. The shortness of breath is mild in severity. White count is 4.5, hemoglobin 10.8, hematocrit 36.3, and platelet count 166,000. PT 12.6, INR 1.2, PTT 26.7, sodium 138, potassium 3.9, chlorides 104, CO2 24, anion gap 10, BUN 17, creatinine 1.38 and TSH 6.530. Coronavirus testing was negative On 10/02/2020 patient seen in follow-up on medical surgical she is mildly short of breath, at rest, but no acute distress, room air pulse ox is 90-93%, afebrile, she has quite significant generalized edema especially involving bilateral lower extremities. Nephrology is following, patient is currently on Zaroxolyn, Lasix infusion at 5 mg per hour, and she is in -250 ML fluid balance over the last 24 hours, however her net fluid balance is difficult to estimate. Is on 1500 mL fluid restriction, today's labs have been reviewed, showing sodium of 138, potassium is 4.3, chloride is 109. She is complaining of some nausea, she has a emesis basin in her lap. CT abdomen and pelvis was initially ordered, however is on hold right now. Cardiac was reviewed showing EF 55-60%, moderate concentric LVH. Moderate to severe aortic stenosis, severe pulmonary hypertension, with PA systolic of 89.8 mmHg, and dilation of the inferior vena cava right atrial pressure of greater than 20 mm of mercury. Progress note dated 10/03/2020. 75-year-old female who presented to the emergency department originally on 09/30/2020. She was complaining of fluid retention, particularly in the lower extremities, as well as shortness of breath. Currently, the patient seems be doing reasonably well. She's not receiving any IV fluids. She's not requiring any supplemental oxygen. She remains on Lasix drip at 5 mg per hour. Her weight has not changed over last couple days. She still waiting about 105 kg. She doesn't feel much or any better. She does have a history of ejection fraction of 55-60%, moderate concentric LVH, moderate to severe aortic stenosis, severe pulmonary hypertension, and an estimated PA systolic pressure of 90 mmHg. Today's lab show a white blood count of 5.2, hemoglobin 9.8, hematocrit 35.1, and platelet count of 202,000. Sodium 140, potassium 3.7, chlorides 105, CO2 24, anion gap 11, BUN 25, and creatinine of 2.0. The patient is seen today 10/04/2020 in follow-up on the regular medical floor. She is currently resting comfortably in bed. No worsening shortness of breath, cough or congestion. She is still on a Lasix drip at 5 mg per hour. No chest saturation in the 90s on room air. White count 6.0. Hemoglobin 10.2. Sodium 137. Potassium 3.7. Creatinine 2.3. She remains on antibiotics in the form of ceftriaxone. Anticoagulated with Eliquis. Objective - Vital Signs Vital signs: Vital Signs Temp 98 F 10/04/20 12:34 Pulse 61 10/04/20 12:34 Resp 16 10/04/20 12:34 BP 95/63 10/04/20 12:34 Pulse Ox 95 10/04/20 12:34 Intake & Output 10/03/20 10/04/20 10/04/20 18:59 06:59 18:59 Intake Total 508.917 368 Output Total 400 350 Balance 108.917 18 Weight 102.3 kg Intake: Intake, IV Titration 94.917 128 Amount Albumin Human 25% 50 ml 50 In Empty Bag 1 bag @ 50 mls/hr IVPB BID LOLY Rx#: [id number] Furosemide 100 mg In 94.917 78 Sodium Chloride 0.9% 90 ml @ 5 MG/HR 5 mls/hr IV .Q20H LOLY Rx#:[id number] Oral 414 240 Output: Urine 400 350 Uretheral (Johnson) 400 Other: Voiding Method Indwelling Catheter Indwelling Catheter Indwelling Catheter # Bowel Movements 0 - Exam GENERAL EXAM: Alert, very pleasant 75-year-old female patient, on room air, comfortable in no apparent distress. HEAD: Normocephalic. EYES: Normal reaction of pupils, equal size. NOSE: Clear with pink turbinates. THROAT: No erythema or exudates. NECK: No masses, no JVD. CHEST: No chest wall deformity. LUNGS: Equal air entry with bibasilar crackles CVS: S1 and S2 normal with no audible murmur, regular rhythm. ABDOMEN: No hepatosplenomegaly, normal bowel sounds, no guarding or rigidity. SPINE: No scoliosis or deformity SKIN: No rashes CENTRAL NERVOUS SYSTEM: No focal deficits, tone is normal in all 4 extremities. EXTREMITIES: There is 1-2+ peripheral edema. No clubbing, no cyanosis. Peripheral pulses are intact. - Labs CBC & Chem 7: 10/04/20 04:55 10/04/20 04:55 Labs: Abnormal Lab Results - Last 24 Hours (Table) 10/03/20 10/03/20 10/03/20 Range/Units 17:06 20:47 21:23 Hgb (12.0-15.0) g/dL Hct (37.2-46.3) % MCV (80.0-97.0) fL MCH (27.0-32.0) pg MCHC (32.0-37.0) g/dL RDW (11.5-14.5) % Absolute Nucleated RBC (0.00-0.00) X 10*3/uL Lymphocytes # (0.90-5.00) X 10*3/uL NRBC/100 WBC Diff (0.0-0.0) /100 WBCS Creatinine (0.6-1.5) mg/dL Est GFR (CKD-EPI)AfAm (60.0-200.0) Est GFR (CKD-EPI)NonAf (60.0-200.0) BUN/Creatinine Ratio (12.00-20.00) Ratio POC Glucose (mg/dL) 114 H 132 H (75-99) mg/dL Calcium (8.7-10.3) mg/dL AST (13-35) U/L Alkaline Phosphatase (41-126) U/L Total Protein (6.2-8.2) g/dL Albumin (3.80-4.90) g/dL Albumin/Globulin Ratio (1.60-3.17) g/dL Urine Appearance Cloudy H (Clear) Urine Protein 1+ H (Negative) Urine Blood Large H (Negative) Ur Leukocyte Esterase Moderate H (Negative) Urine RBC >182 H (0-5) /hpf Urine WBC 6 H (0-5) /hpf Amorphous Sediment Rare H (None) /hpf Urine Bacteria Rare H (None) /hpf Hyaline Casts 51 H (0-2) /lpf Urine Mucus Rare H (None) /hpf Urine Yeast (Budding) Occasional H (None) /hpf 10/04/20 10/04/20 Range/Units 04:55 04:55 Hgb 10.2 L (12.0-15.0) g/dL Hct 36.8 L (37.2-46.3) % MCV 77.3 L (80.0-97.0) fL MCH 21.4 L (27.0-32.0) pg MCHC 27.7 L (32.0-37.0) g/dL RDW 19.1 H (11.5-14.5) % Absolute Nucleated RBC 0.12 H (0.00-0.00) X 10*3/uL Lymphocytes # 0.69 L (0.90-5.00) X 10*3/uL NRBC/100 WBC Diff 2.0 H (0.0-0.0) /100 WBCS Creatinine 2.3 H (0.6-1.5) mg/dL Est GFR (CKD-EPI)AfAm 23.0 L (60.0-200.0) Est GFR (CKD-EPI)NonAf 19.8 L (60.0-200.0) BUN/Creatinine Ratio 11.74 L (12.00-20.00) Ratio POC Glucose (mg/dL) (75-99) mg/dL Calcium 8.0 L (8.7-10.3) mg/dL AST 60 H (13-35) U/L Alkaline Phosphatase 180 H (41-126) U/L Total Protein 5.7 L (6.2-8.2) g/dL Albumin 3.30 L (3.80-4.90) g/dL Albumin/Globulin Ratio 1.38 L (1.60-3.17) g/dL Urine Appearance (Clear) Urine Protein (Negative) Urine Blood (Negative) Ur Leukocyte Esterase (Negative) Urine RBC (0-5) /hpf Urine WBC (0-5) /hpf Amorphous Sediment (None) /hpf Urine Bacteria (None) /hpf Hyaline Casts (0-2) /lpf Urine Mucus (None) /hpf Urine Yeast (Budding) (None) /hpf Assessment and Plan Assessment: Acute on chronic diastolic congestive heart failure. Diffuse body edema and anasarca, which quickly to the lower extremities. Chronic venous stasis and hyperpigmentation of the lower extremities, secondary to venous incompetence. Obesity. History of subaortic web and outflow track obstruction. History of chronic atrial fibrillation. Severe pulmonary hypertension. History of CVA. History of diabetes mellitus. History of fibromyalgia. History of hiatal hernia. Stress urinary incontinence. History of osteoarthritis. Chronic dry skin. Plan: The patient was seen and evaluated by Dr. Gutierrez Remains on a Lasix drip Follow-up chest x-ray in a.m. We'll continue to follow I, the cosigning physician, performed a history & physical examination of the patient. Lungs sounds with bibasilar crackles. Maintaining good O2 saturations in the 90s on room air. I discussed the assessment and plan of care with my nurse practitioner, Nirmala Soto. I attest to the above note as dictated by her.
--- NOTE | 2020-10-04 14:52 | P.PN ---
Subjective Progress Note Date: 10/04/20 Follow-up for acute kidney injury. 3 kg weight since admission. Urine output better today. 750 ML's in the last 24 hours. Objective - Vital Signs Vital signs: Vital Signs Temp 98 F 10/04/20 12:34 Pulse 61 10/04/20 12:34 Resp 16 10/04/20 12:34 BP 95/63 10/04/20 12:34 Pulse Ox 95 10/04/20 12:34 Intake & Output 10/03/20 10/04/20 10/04/20 18:59 06:59 18:59 Intake Total 508.917 368 Output Total 400 350 Balance 108.917 18 Weight 102.3 kg Intake: Intake, IV Titration 94.917 128 Amount Albumin Human 25% 50 ml 50 In Empty Bag 1 bag @ 50 mls/hr IVPB BID LOLY Rx#: [id number] Furosemide 100 mg In 94.917 78 Sodium Chloride 0.9% 90 ml @ 5 MG/HR 5 mls/hr IV .Q20H LOLY Rx#:[id number] Oral 414 240 Output: Urine 400 350 Uretheral (Johnson) 400 Other: Voiding Method Indwelling Catheter Indwelling Catheter Indwelling Catheter # Bowel Movements 0 - Exam No acute distress S1-S2 heard Decreased breath sounds Edema - Labs CBC & Chem 7: 10/04/20 04:55 10/04/20 04:55 Labs: Abnormal Lab Results - Last 24 Hours (Table) 10/03/20 10/03/20 10/03/20 Range/Units 17:06 20:47 21:23 Hgb (12.0-15.0) g/dL Hct (37.2-46.3) % MCV (80.0-97.0) fL MCH (27.0-32.0) pg MCHC (32.0-37.0) g/dL RDW (11.5-14.5) % Absolute Nucleated RBC (0.00-0.00) X 10*3/uL Lymphocytes # (0.90-5.00) X 10*3/uL NRBC/100 WBC Diff (0.0-0.0) /100 WBCS Creatinine (0.6-1.5) mg/dL Est GFR (CKD-EPI)AfAm (60.0-200.0) Est GFR (CKD-EPI)NonAf (60.0-200.0) BUN/Creatinine Ratio (12.00-20.00) Ratio POC Glucose (mg/dL) 114 H 132 H (75-99) mg/dL Calcium (8.7-10.3) mg/dL AST (13-35) U/L Alkaline Phosphatase (41-126) U/L Total Protein (6.2-8.2) g/dL Albumin (3.80-4.90) g/dL Albumin/Globulin Ratio (1.60-3.17) g/dL Urine Appearance Cloudy H (Clear) Urine Protein 1+ H (Negative) Urine Blood Large H (Negative) Ur Leukocyte Esterase Moderate H (Negative) Urine RBC >182 H (0-5) /hpf Urine WBC 6 H (0-5) /hpf Amorphous Sediment Rare H (None) /hpf Urine Bacteria Rare H (None) /hpf Hyaline Casts 51 H (0-2) /lpf Urine Mucus Rare H (None) /hpf Urine Yeast (Budding) Occasional H (None) /hpf 10/04/20 10/04/20 Range/Units 04:55 04:55 Hgb 10.2 L (12.0-15.0) g/dL Hct 36.8 L (37.2-46.3) % MCV 77.3 L (80.0-97.0) fL MCH 21.4 L (27.0-32.0) pg MCHC 27.7 L (32.0-37.0) g/dL RDW 19.1 H (11.5-14.5) % Absolute Nucleated RBC 0.12 H (0.00-0.00) X 10*3/uL Lymphocytes # 0.69 L (0.90-5.00) X 10*3/uL NRBC/100 WBC Diff 2.0 H (0.0-0.0) /100 WBCS Creatinine 2.3 H (0.6-1.5) mg/dL Est GFR (CKD-EPI)AfAm 23.0 L (60.0-200.0) Est GFR (CKD-EPI)NonAf 19.8 L (60.0-200.0) BUN/Creatinine Ratio 11.74 L (12.00-20.00) Ratio POC Glucose (mg/dL) (75-99) mg/dL Calcium 8.0 L (8.7-10.3) mg/dL AST 60 H (13-35) U/L Alkaline Phosphatase 180 H (41-126) U/L Total Protein 5.7 L (6.2-8.2) g/dL Albumin 3.30 L (3.80-4.90) g/dL Albumin/Globulin Ratio 1.38 L (1.60-3.17) g/dL Urine Appearance (Clear) Urine Protein (Negative) Urine Blood (Negative) Ur Leukocyte Esterase (Negative) Urine RBC (0-5) /hpf Urine WBC (0-5) /hpf Amorphous Sediment (None) /hpf Urine Bacteria (None) /hpf Hyaline Casts (0-2) /lpf Urine Mucus (None) /hpf Urine Yeast (Budding) (None) /hpf Assessment and Plan Assessment: #1 acute kidney injury secondary to type I CRS. Baseline creatinine 1.0 MG per DL. -ATN is a possibility with hypotensive episodes. #2 hypotensive episodes #3 acute on chronic diastolic CHF #4 volume overload #5 A. fib with RVR, rate controlled Plan: #1 continue with Lasix drip at 5 ML's an hour. Metolazone was stopped yesterday. #2 continue with midodrine to 10 mg 3 times a day. #3 IV albumin for hemodynamic support. #4 creatinine creeping, anticipate to stabilize by tomorrow. #5 avoid nephrotoxic agents and hypotensive episodes.
[2020-10-04 17:07] LABS: Glucose,Whole Blood 102 mg/dL (75-99)
[2020-10-04] MEDS: FUROSEMIDE 100 MG in SODIUM CHLORIDE 0.9% 90 ML IV SCH (18:25)
[2020-10-04 20:12] LABS: Glucose,Whole Blood 115 mg/dL (75-99)
[2020-10-05 04:46] LABS: Anisocytosis Slight; Basophils # (A) 0.1 k/uL (0-0.2); Basophils % (A) 1 %; Eosinophils # (A) 0.4 k/uL (0-0.7); Eosinophils % (A) 7 %; HCT 36.1 % (34.0-46.0); HGB 10.8 gm/dL (11.4-16.0); Hypochromasia Marked; Lymphocytes # (A) 0.8 k/uL (1.0-4.8); Lymphocytes % (A) 13 %; MCH 22.2 pg (25.0-35.0); MCHC 29.9 g/dL (31.0-37.0); MCV 74.4 fL (80.0-100.0); Mean Platelet Volume 7.8; Microcytosis Moderate; Monocytes # (A) 0.5 k/uL (0-1.0); Monocytes % (A) 8 %; Neutrophils # (A) 4.3 k/uL (1.3-7.7); Neutrophils % (A) 68 %; Platelet Count 217 k/uL (150-450); Poikilocytosis Slight; RBC 4.85 m/uL (3.80-5.40); RDW 18.9 % (11.5-15.5)
[2020-10-05 05:27] LABS: Band Neutrophils % 1 %; Neutrophils % (M) 67 %; Nucleated Red Blood Cells 3 /100 WBC (0-0); Total Cells Counted 200
[2020-10-05 05:28] LABS: Anisocytosis (M) Present; Eosinophils # (M) 0.37 k/uL (0-0.7); Lymphocytes # (M) 1.24 k/uL (1.0-4.8); Monocytes # (M) 0.43 k/uL (0-1.0); Poikilocytosis (M) Present; Polychromasia Present; RBC Fragments Present; WBC 6.2 k/uL (3.8-10.6)
[2020-10-05] MEDS: LEVOTHYROXINE 25 MCG TAB PO SCH (06:00)
--- NOTE | 2020-10-05 06:36 | P.CONS ---
History of Present Illness - Chief Complaint Medical debility - History of Present Illness I had the opportunity to see patient for inpatient rehab consultation with regard to medical debility. She was admitted to [facility] September 30 with increasing shortness of breath and lower extremity edema for which she was seen by Dr. Gutierrez. Seen by Dr. Ascencio for acute kidney injury. Seen by Dr. Perkins for lower extremity vascular, recommend elevation legs only. Chest x-ray consistent with CHF. Abdominal ultrasound with left renal cyst only. PT reports maximal assistance for bed mobility and total assist for standing. OT reports moderate assistance for upper dressing in 2 person maximal assistance f or lower dressing, maximal assistance for bathing and two-person total assistance for toileting and toilet transfer. Previous functional history as elicited from patient: 65-year-old right-handed white female who is lives in one floor home with . been doing the cooking for the last 6 months as patient has not been feeling well for the last 6 months. Both are retired. Patient describes independent with laundry and standing shower and gait with standard cane. PMD Dr. Krause. Denies tobacco or alcohol. Review of Systems Review of systems: ENT: Denies sneezes or discharge. Eyes: Denies discharge or photophobia. Cardiac: Denies chest pain or palpitation. Pulmonary: At least moderate shortness of breath. Breast: Denies discharge or lumps. Gastrointestinal: Denies nausea, emesis, constipation, diarrhea. Genitourinary: Denies discharge or frequency. Musculoskeletal: Denies muscle or bone aches. Neurologic: Generalized weakness. Endocrine: Denies shakes or sweats. Oncology: Denies cancers. Dermatologic: Denies rash, itching, pruritus. ALLERGY/immunology: Denies sneezes, rashes. Past Medical History Past Medical History: Cancer, CVA/TIA, Diabetes Mellitus, Fibromyalgia, Osteoarthritis (OA), Pneumonia, Skin Disorder Additional Past Medical History / Comment(s): hx hiatal hernia, diarrhea, leakage of urine/urgency, "dry skin", anemia, skin cancer History of Any Multi-Drug Resistant Organisms: None Reported Past Surgical History: Appendectomy, Cholecystectomy, Heart Catheterization, Hysterectomy, Joint Replacement, Orthopedic Surgery, Pacemaker, Tonsillectomy, Tubal Ligation Additional Past Surgical History / Comment(s): cyril heel spurs, left shoulder rotator cuff, bone biopsy, cyril cataracts Past Anesthesia/Blood Transfusion Reactions: Previous Problems w/ Anesthesia, Family History of Problems w/ Anesthesia, Postoperative Nausea & Vomiting (PONV) Additional Past Anesthesia/Blood Transfusion Reaction / Comm: "could not wake for several days after knee replacement". brother PONV. Type of Cardiac Device: Permanent Pacemaker Device Placement Date:: 04/2009 Past Psychological History: No Psychological Hx Reported Additional Psychological History / Comment(s): Pt resides with her spouse. She has a cane which she uses prn. She drives. Smoking Status: Former smoker Past Alcohol Use History: None Reported Additional Past Alcohol Use History / Comment(s): Pt started smoking in 1960 and quit in 1961 Past Drug Use History: None Reported - Past Family History Father Family Medical History: Cancer Additional Family Medical History / Comment(s): skin Mother Family Medical History: Seizure Disorder Medications and Allergies Home Medications Medication Instructions Recorded Confirmed Type Apixaban [Eliquis] 5 mg PO BID 30 Days #60 tab 10/15/18 09/30/20 Rx Metoprolol Tartrate [Lopressor] 50 mg PO BID tab 10/15/18 09/30/20 Rx Furosemide [Lasix] 80 mg PO DAILY PRN 07/19/19 09/30/20 History Ibuprofen [Motrin Ib] 200 mg PO Q8H PRN 07/07/20 09/30/20 History Potassium Chloride [Klor-Con 20] 20 meq PO DAILY PRN 09/30/20 09/30/20 History Tolterodine Tartrate [Detrol LA] 4 mg PO DAILY 09/30/20 09/30/20 History traMADol HCL 50 mg PO TID PRN 09/30/20 09/30/20 History Allergies Allergy/AdvReac Type Severity Reaction Status Date / Time codeine Allergy Unknown Verified 09/30/20 16:32 latex Allergy Rash/Hives Verified 09/30/20 16:32 hydrocodone bitartrate AdvReac Nausea & Verified 09/30/20 16:32 [From Vicodin] Vomiting & Diarrhea prednisone AdvReac brought on Verified 09/30/20 16:32 diabetes cortisone injections AdvReac brought on Uncoded 09/30/20 16:32 diabetes sedatives AdvReac "I could Uncoded 09/30/20 16:32 not wake up" steroids AdvReac Hallucinati Uncoded 09/30/20 16:32 ons Physical Exam Vitals: Vital Signs Temp Pulse Resp BP Pulse Ox 10/05/20 05:00 97.7 F 64 16 101/62 94 L 10/04/20 20:53 97.4 F L 65 16 132/75 95 10/04/20 12:34 98 F 61 16 95/63 95 Intake and Output 10/04/20 10/04/20 10/05/20 14:59 22:59 06:59 Intake Total 046.869 2137 Output Total 600 1800 1450 Balance -600 -1129.417 -384 Intake: Intake, IV Titration 92.583 50 Amount Albumin Human 25% 50 ml 50 In Empty Bag 1 bag @ 50 mls/hr IVPB BID LOLY Rx#: [id number] Furosemide 100 mg In 92.583 Sodium Chloride 0.9% 90 ml @ 5 MG/HR 5 mls/hr IV .Q20H LOLY Rx#:[id number] Oral 578 1016 Output: Urine 600 1800 1450 Uretheral (Johnson) 1200 500 Other: Voiding Method Indwelling Catheter Indwelling Catheter # Voids 0 # Bowel Movements 0 Weight 96 kg Skin: Atrophic, intact. General: Obese build and comfortable appearance. Head: Normocephalic, atraumatic. Eyes: Symmetric. Pupils equal round. Ears: Symmetric. Hearing within normal limits. Mouth: Clear. Neck: Supple. Carotid without bruit. Cardiac: Regular rate and rhythm. Lungs: Clear anteriorly and posteriorly. Abdomen: Soft active nontender. Extremities: Normal tone. Neurological: Mental status: Alert, cooperative, pleasant. Cranial nerves: Symmetric facial tone and trapezius. Motor: Able to elevate arms but poor movement in legs. Sensation: Intact throughout. DTRs: Symmetric and equal throughout. Mobility: Requires physical assist for bed mobility. Results CBC & Chem 7: 10/05/20 04:01 10/04/20 04:55 Labs: Abnormal Lab Results - Last 24 Hours (Table) 10/04/20 10/04/20 10/04/20 Range/Units 04:55 04:55 16:56 Hgb 10.2 L (12.0-15.0) g/dL Hct 36.8 L (37.2-46.3) % MCV 77.3 L (80.0-97.0) fL MCH 21.4 L (27.0-32.0) pg MCHC 27.7 L (32.0-37.0) g/dL RDW 19.1 H (11.5-14.5) % Absolute Nucleated RBC 0.12 H (0.00-0.00) X 10*3/uL Lymphocytes # 0.69 L (0.90-5.00) X 10*3/uL Nucleated RBCs (0-0) /100 WBC NRBC/100 WBC Diff 2.0 H (0.0-0.0) /100 WBCS Creatinine 2.3 H (0.6-1.5) mg/dL Est GFR (CKD-EPI)AfAm 23.0 L (60.0-200.0) Est GFR (CKD-EPI)NonAf 19.8 L (60.0-200.0) BUN/Creatinine Ratio 11.74 L (12.00-20.00) Ratio POC Glucose (mg/dL) 102 H (75-99) mg/dL Calcium 8.0 L (8.7-10.3) mg/dL AST 60 H (13-35) U/L Alkaline Phosphatase 180 H (41-126) U/L Total Protein 5.7 L (6.2-8.2) g/dL Albumin 3.30 L (3.80-4.90) g/dL Albumin/Globulin Ratio 1.38 L (1.60-3.17) g/dL 10/04/20 10/05/20 Range/Units 20:11 04:01 Hgb 10.8 L (12.0-15.0) g/dL Hct (37.2-46.3) % MCV 74.4 L (80.0-97.0) fL MCH 22.2 L (27.0-32.0) pg MCHC 29.9 L (32.0-37.0) g/dL RDW 18.9 H (11.5-14.5) % Absolute Nucleated RBC (0.00-0.00) X 10*3/uL Lymphocytes # 0.8 L (0.90-5.00) X 10*3/uL Nucleated RBCs 3 H (0-0) /100 WBC NRBC/100 WBC Diff (0.0-0.0) /100 WBCS Creatinine (0.6-1.5) mg/dL Est GFR (CKD-EPI)AfAm (60.0-200.0) Est GFR (CKD-EPI)NonAf (60.0-200.0) BUN/Creatinine Ratio (12.00-20.00) Ratio POC Glucose (mg/dL) 115 H (75-99) mg/dL Calcium (8.7-10.3) mg/dL AST (13-35) U/L Alkaline Phosphatase (41-126) U/L Total Protein (6.2-8.2) g/dL Albumin (3.80-4.90) g/dL Albumin/Globulin Ratio (1.60-3.17) g/dL Microbiology - Last 24 Hours (Table) 10/03/20 00:45 Urine Culture - Preliminary Urine,Catheterized Assessment and Plan (1) CHF (congestive heart failure) Current Visit: Yes Status: Acute Code(s): I50.9 - HEART FAILURE, UNSPECIFIED SNOMED Code(s): 83439820 (2) Bilateral lower leg cellulitis Current Visit: No Status: Acute Code(s): L03.116 - CELLULITIS OF LEFT LOWER LIMB; L03.115 - CELLULITIS OF RIGHT LOWER LIMB SNOMED Code(s): 918876917 Plan: Impression: 1. Medical debility. 2. CHF. 3. Lower extremity edema and cellulitis. 4. Fibromyalgia. 5. Osteoarthritis. 6. History cancer and stroke. Comments and plan: At this time PT and OT are ongoing. Rehab prognosis however guarded and notices a six-month standing problem. Must determine if has realistic goals for return to home for possible inpatient rehab goals.
[2020-10-05 07:11] LABS: Glucose,Whole Blood 186 mg/dL (75-99)
--- NOTE | 2020-10-05 07:31 | XR ---
EXAMINATION TYPE: XR chest 1V portable DATE OF EXAM: 10/05/2020 Comparison: 09/30/2020 Clinical History: 75-year-old female CHF Findings: Left anterior chest wall pacemaker generator with right atrial and right ventricular leads. Patient i s rotated towards the right ultrasound and normal cardiac and mediastinal contours. Heart remains enl arged. Patchy interstitial density, patchy right-sided perihilar opacity, and additional patchy densi ty throughout the right mid and lower lung. Suspected small right pleural effusion increased from lyndsey or. Impression: Rotated exam. Cardiomegaly with interstitial changes and patchy airspace opacity, right greater the l eft, slightly worsened on the right now. Suspect small right effusion which also appears increased.
[2020-10-05 09:50] LABS: African American GFR (CKD) 24.3 (60.0-200.0); Albumin 3.4 g/dL (3.80-4.90); Albumin/Globulin Ratio 1.55 (1.60-3.17); Anion Gap 13.5 mmol/L (4.00-12.00); BUN/Creat Ratio 12.73 Ratio (12.00-20.00); Calcium 8.1 mg/dL (8.7-10.3); Carbon Dioxide 20.5 mmol/L (21.6-31.8); Globulin 2.2 g/dL (1.6-3.3); Non-African American GFR(CKD) 20.9 (60.0-200.0); Potassium 3.9 mmol/L (3.5-5.5); Total Bilirubin 0.7 mg/dL (0.2-1.2); Total Protein 5.6 g/dL (6.2-8.2)
[2020-10-05] MEDS: APIXABAN 5 MG TAB PO SCH ×2 (09:54→21:04)
[2020-10-05] MEDS: METOPROLOL TARTRATE 12.5 MG TAB PO SCH ×2 (09:55→21:04)
[2020-10-05] MEDS: GABAPENTIN 100 MG CAP PO SCH ×3 (09:55→21:04)
[2020-10-05] MEDS: PANTOPRAZOLE 40 MG TABLET PO SCH (09:55)
[2020-10-05] MEDS: OXYBUTYNIN XL 5 MG TAB.ER.24 PO SCH (09:56)
[2020-10-05] MEDS: MIDODRINE 5 MG TAB PO SCH ×3 (09:57→21:04)
[2020-10-05] MEDS: PETROLAT,WHITE/LAN/8-HYDROXYQU 227 GM OINT TOPICAL SCH (10:04)
--- NOTE | 2020-10-05 10:31 | P.PN ---
Subjective This is a pleasant 75-year-old female past medical history significant for chronic persistent atrial fibrillation on Eliquis, chronic diastolic dysfunction, permanent pacemaker implantation, pulmonary hypertension, anemia and subaortic web with outflow tract obstruction. She follows in the office with Dr. Ruby. She is seen and examined sitting up in bed in no acute distress. Overall she feels as though her breathing has improved since admission however not entirely back to baseline. She was up out of bed already once this morning. She denies chest pain, dizziness or palpitations. Repeat chest x-ray today reveals ongoing interstitial changes and patchy airspace opacity right greater than left. Small right pleural effusion appears increased from previous study. Blood pressure 101/62 heart rate 64 afebrile maintaining oxygen saturation on room air. Laboratory data reviewed, WBC 6.2, hemoglobin 10.8, platelets 217, sodium 138, potassium 3.9, creatinine 2.2 down from 2.3 yesterday. Currently maintained on IV Lasix infusion per nephrology, Eliquis 5 mg twice a day, metoprolol 12.5 mg twice a day and midodrine 10 mg 3 times a day. 24 hours urine output 3850 cc. and weight is down 9 kg since admission. GENERAL: Well-appearing, well-nourished and in no acute distress. Morbidly obese. NECK: Supple without JVD or thyromegaly. LUNGS: Breath sounds clear to auscultation bilaterally. Respiration equal and unlabored. No wheezes, rales or rhonchi. Difficult to auscultate clearly due to body habitus, no clear rales appreciated. HEART: Irregular rate and rhythm with systolic ejection murmur at the base, no r ubs or gallops. S1 and S2 heard. EXTREMITIES: Chronic edema with chronic stasis changes noted. No clubbing or cyanosis. Peripheral pulses intact. ASSESSMENT Acute on chronic diastolic heart failure Chronic persistent atrial fibrillation History of hypertrophic cardiomyopathy Pulmonary hypertension Chronic venous stasis Diabetes mellitus Aortic stenosis, moderate Hypertrophic cardiomyopathy with BERKLEY, gradient 24 mmHg Mitral regurgitation Tricuspid regurgitation Pulmonary hypertension PLAN Continue diuretic management per nephrology. Consider transitioning to oral diuretics. Follow renal function and electrolytes in the morning. Ongoing documentation of accurate intake and output along with daily weights. Continue eliquis for thromboembolic protection. Nurse Practitioner note has been reviewed, I agree with a documented findings and plan of care. Patient was seen and examined. Objective - Vital Signs Vital signs: Vital Signs Temp 97.7 F 10/05/20 05:00 Pulse 64 10/05/20 05:00 Resp 16 10/05/20 05:00 BP 101/62 10/05/20 05:00 Pulse Ox 94 L 10/05/20 05:00 Intake & Output 10/04/20 10/05/20 10/05/20 18:59 06:59 18:59 Intake Total 308.127 8658 Output Total 2400 1450 Balance -1729.417 -384 Weight 96 kg Intake: Intake, IV Titration 92.583 50 Amount Albumin Human 25% 50 ml 50 In Empty Bag 1 bag @ 50 mls/hr IVPB BID LOLY Rx#: [id number] Furosemide 100 mg In 92.583 Sodium Chloride 0.9% 90 ml @ 5 MG/HR 5 mls/hr IV .Q20H LOLY Rx#:[id number] Oral 578 1016 Output: Urine 2400 1450 Uretheral (Johnson) 1200 500 Other: Voiding Method Indwelling Catheter Indwelling Catheter # Voids 0 # Bowel Movements 0 - Labs CBC & Chem 7: 10/05/20 04:01 10/05/20 04:01 Labs: Abnormal Lab Results - Last 24 Hours (Table) 10/04/20 10/04/20 10/04/20 Range/Units 04:55 04:55 16:56 Hgb 10.2 L (12.0-15.0) g/dL Hct 36.8 L (37.2-46.3) % MCV 77.3 L (80.0-97.0) fL MCH 21.4 L (27.0-32.0) pg MCHC 27.7 L (32.0-37.0) g/dL RDW 19.1 H (11.5-14.5) % Absolute Nucleated RBC 0.12 H (0.00-0.00) X 10*3/uL Lymphocytes # 0.69 L (0.90-5.00) X 10*3/uL Nucleated RBCs (0-0) /100 WBC NRBC/100 WBC Diff 2.0 H (0.0-0.0) /100 WBCS Carbon Dioxide (21.6-31.8) mmol/L Anion Gap (4.00-12.00) mmol/L BUN (9.0-27.0) mg/dL Creatinine 2.3 H (0.6-1.5) mg/dL Est GFR (CKD-EPI)AfAm 23.0 L (60.0-200.0) Est GFR (CKD-EPI)NonAf 19.8 L (60.0-200.0) BUN/Creatinine Ratio 11.74 L (12.00-20.00) Ratio POC Glucose (mg/dL) 102 H (75-99) mg/dL Calcium 8.0 L (8.7-10.3) mg/dL AST 60 H (13-35) U/L ALT (8-44) U/L Alkaline Phosphatase 180 H (41-126) U/L Total Protein 5.7 L (6.2-8.2) g/dL Albumin 3.30 L (3.80-4.90) g/dL Albumin/Globulin Ratio 1.38 L (1.60-3.17) g/dL 10/04/20 10/05/20 10/05/20 Range/Units 20:11 04:01 04:01 Hgb 10.8 L (12.0-15.0) g/dL Hct (37.2-46.3) % MCV 74.4 L (80.0-97.0) fL MCH 22.2 L (27.0-32.0) pg MCHC 29.9 L (32.0-37.0) g/dL RDW 18.9 H (11.5-14.5) % Absolute Nucleated RBC (0.00-0.00) X 10*3/uL Lymphocytes # 0.8 L (0.90-5.00) X 10*3/uL Nucleated RBCs 3 H (0-0) /100 WBC NRBC/100 WBC Diff (0.0-0.0) /100 WBCS Carbon Dioxide 20.5 L (21.6-31.8) mmol/L Anion Gap 13.50 H (4.00-12.00) mmol/L BUN 28.0 H (9.0-27.0) mg/dL Creatinine 2.2 H (0.6-1.5) mg/dL Est GFR (CKD-EPI)AfAm 24.3 L (60.0-200.0) Est GFR (CKD-EPI)NonAf 20.9 L (60.0-200.0) BUN/Creatinine Ratio (12.00-20.00) Ratio POC Glucose (mg/dL) 115 H (75-99) mg/dL Calcium 8.1 L (8.7-10.3) mg/dL AST 76 H (13-35) U/L ALT 47 H (8-44) U/L Alkaline Phosphatase 172 H (41-126) U/L Total Protein 5.6 L (6.2-8.2) g/dL Albumin 3.40 L (3.80-4.90) g/dL Albumin/Globulin Ratio 1.55 L (1.60-3.17) g/dL 10/05/20 Range/Units 07:10 Hgb (12.0-15.0) g/dL Hct (37.2-46.3) % MCV (80.0-97.0) fL MCH (27.0-32.0) pg MCHC (32.0-37.0) g/dL RDW (11.5-14.5) % Absolute Nucleated RBC (0.00-0.00) X 10*3/uL Lymphocytes # (0.90-5.00) X 10*3/uL Nucleated RBCs (0-0) /100 WBC NRBC/100 WBC Diff (0.0-0.0) /100 WBCS Carbon Dioxide (21.6-31.8) mmol/L Anion Gap (4.00-12.00) mmol/L BUN (9.0-27.0) mg/dL Creatinine (0.6-1.5) mg/dL Est GFR (CKD-EPI)AfAm (60.0-200.0) Est GFR (CKD-EPI)NonAf (60.0-200.0) BUN/Creatinine Ratio (12.00-20.00) Ratio POC Glucose (mg/dL) 186 H (75-99) mg/dL Calcium (8.7-10.3) mg/dL AST (13-35) U/L ALT (8-44) U/L Alkaline Phosphatase (41-126) U/L Total Protein (6.2-8.2) g/dL Albumin (3.80-4.90) g/dL Albumin/Globulin Ratio (1.60-3.17) g/dL Microbiology - Last 24 Hours (Table) 10/03/20 00:45 Urine Culture - Preliminary Urine,Catheterized
[2020-10-05] MEDS: ALBUMIN HUMAN 25% 50 ML in EMPTY BAG 1 BAG IVPB SCH (10:45)
[2020-10-05 11:10] LABS: Glucose,Whole Blood 180 mg/dL (75-99)
[2020-10-05] MEDS: FUROSEMIDE 100 MG in SODIUM CHLORIDE 0.9% 90 ML IV SCH (11:21)
--- NOTE | 2020-10-05 12:29 | P.PN ---
Subjective Progress Note Date: 10/05/20 75-year-old here patient is being seen in follow-up today. The patient has diastolic heart failure with anasarca and extensive fluid overload. The patient had an ejection fraction of 55-60% along with moderate concentric LVH, moderate to severe aortic stenosis, severe pulmonary hypertension with a PA pressure of around 90 mmHg. The patient had increased swelling in lower extremities bilaterally. She has a Johnson catheter in place which is calculated at 5 mg an hour. She is also being followed up by nephrology. In addition to that, she has multiple other comorbidities including CVA, diabetes mellitus, fibromyalgia, osteoarthritis, chronic skin dryness, stress urinary incontinence, hiatal hernia and a previous history of pacemaker insertion. The patient has moderate to severe aortic stenosis and she has a chronic systolic ejection murmur in place. She has developed an acute kidney injury with diuretics. The harris virus/19 testing was negative. She is on room air oxygen. Chest x-ray still showing bilateral pleural effusions slightly worse on the right along with folic acid congestion. Objective - Vital Signs Vital signs: Vital Signs Temp 97.7 F 10/05/20 05:00 Pulse 64 10/05/20 05:00 Resp 16 10/05/20 05:00 BP 101/62 10/05/20 05:00 Pulse Ox 94 L 10/05/20 05:00 Intake & Output 10/04/20 10/05/20 10/05/20 18:59 06:59 18:59 Intake Total 605.083 8323 306.667 Output Total 2400 1450 Balance -1729.417 -384 306.667 Weight 96 kg Intake: Intake, IV Titration 92.583 50 84.667 Amount Albumin Human 25% 50 ml 50 In Empty Bag 1 bag @ 50 mls/hr IVPB BID LOLY Rx#: [id number] Furosemide 100 mg In 92.583 84.667 Sodium Chloride 0.9% 90 ml @ 5 MG/HR 5 mls/hr IV .Q20H LOLY Rx#:[id number] Oral 578 1016 222 Output: Urine 2400 1450 Uretheral (Johnson) 1200 500 Other: Voiding Method Indwelling Catheter Indwelling Catheter # Voids 0 # Bowel Movements 0 - Exam GENERAL EXAM: Alert, very pleasant 75-year-old female patient, on room air, comfortable in no apparent distress. HEAD: Normocephalic. EYES: Normal reaction of pupils, equal size. NOSE: Clear with pink turbinates. THROAT: No erythema or exudates. NECK: No masses, no JVD. CHEST: No chest wall deformity. LUNGS: Equal air entry with bibasilar crackles CVS: S1 and S2 normal with and the patient has a slow irregular rhythm consistent with atrial fibrillation and she has a high grade 4/6 systolic ejection murmur over the apex consistent with aortic stenosis. ABDOMEN: No hepatosplenomegaly, normal bowel sounds, no guarding or rigidity. SPINE: No scoliosis or deformity SKIN: No rashes CENTRAL NERVOUS SYSTEM: No focal deficits, tone is normal in all 4 extremities. EXTREMITIES: There is 1-2+ peripheral edema. No clubbing, no cyanosis. Peripheral pulses are intact. - Labs CBC & Chem 7: 10/05/20 04:01 10/05/20 04:01 Labs: Abnormal Lab Results - Last 24 Hours (Table) 10/04/20 10/04/20 10/05/20 Range/Units 16:56 20:11 04:01 Hgb 10.8 L (11.4-16.0) gm/dL MCV 74.4 L (80.0-100.0) fL MCH 22.2 L (25.0-35.0) pg MCHC 29.9 L (31.0-37.0) g/dL RDW 18.9 H (11.5-15.5) % Lymphocytes # 0.8 L (1.0-4.8) k/uL Nucleated RBCs 3 H (0-0) /100 WBC Carbon Dioxide (21.6-31.8) mmol/L Anion Gap (4.00-12.00) mmol/L BUN (9.0-27.0) mg/dL Creatinine (0.6-1.5) mg/dL Est GFR (CKD-EPI)AfAm (60.0-200.0) Est GFR (CKD-EPI)NonAf (60.0-200.0) POC Glucose (mg/dL) 102 H 115 H (75-99) mg/dL Calcium (8.7-10.3) mg/dL AST (13-35) U/L ALT (8-44) U/L Alkaline Phosphatase (41-126) U/L Total Protein (6.2-8.2) g/dL Albumin (3.80-4.90) g/dL Albumin/Globulin Ratio (1.60-3.17) g/dL 10/05/20 10/05/20 10/05/20 Range/Units 04:01 07:10 11:08 Hgb (11.4-16.0) gm/dL MCV (80.0-100.0) fL MCH (25.0-35.0) pg MCHC (31.0-37.0) g/dL RDW (11.5-15.5) % Lymphocytes # (1.0-4.8) k/uL Nucleated RBCs (0-0) /100 WBC Carbon Dioxide 20.5 L (21.6-31.8) mmol/L Anion Gap 13.50 H (4.00-12.00) mmol/L BUN 28.0 H (9.0-27.0) mg/dL Creatinine 2.2 H (0.6-1.5) mg/dL Est GFR (CKD-EPI)AfAm 24.3 L (60.0-200.0) Est GFR (CKD-EPI)NonAf 20.9 L (60.0-200.0) POC Glucose (mg/dL) 186 H 180 H (75-99) mg/dL Calcium 8.1 L (8.7-10.3) mg/dL AST 76 H (13-35) U/L ALT 47 H (8-44) U/L Alkaline Phosphatase 172 H (41-126) U/L Total Protein 5.6 L (6.2-8.2) g/dL Albumin 3.40 L (3.80-4.90) g/dL Albumin/Globulin Ratio 1.55 L (1.60-3.17) g/dL Microbiology - Last 24 Hours (Table) 10/03/20 00:45 Urine Culture - Preliminary Urine,Catheterized Assessment and Plan Plan: 1 Acute on chronic diastolic congestive heart failure. Patient has severe concentric LVH, preserved LV function, however she has left ventricular outflow tract obstruction with moderate to severe aortic stenosis and severe right-sided heart failure with severe pulmonary hypertension with a PA pressure estimated to be 89 mmHg. The patient accordingly has developed failure, biventricular failure including the right than left-sided. The chest x-ray still consistent with CHF and the patient remains on Lasix drip. 2 Diffuse body edema and anasarca, which quickly to the lower extremities. 3 Chronic venous stasis and hyperpigmentation of the lower extremities, secondary to venous incompetence. 4 Obesity. 5 History of subaortic web and outflow track obstruction. 6 History of chronic atrial fibrillation. 7 Severe pulmonary hypertension. 8 History of CVA. 9 History of diabetes mellitus. 10 History of fibromyalgia. 11 History of hiatal hernia. 12 Stress urinary incontinence. 13 History of osteoarthritis. 14 Chronic dry skin. Plan: Remains on a Lasix drip and will continue the Lasix to live with it. 5 mg an hour. She is in a negative fluid balance of 2100 since yesterday. Her renal function is stable with a creatinine of 2.2 and a BUN of 28 which are essentially compatible to yesterday. Follow-up chest x-ray from today still showing cardiomegaly and bilateral pleural effusion pulmonary vessel congestion. In comparison to the previous chest x-ray from 09/30/2020, findings are essentially unchanged and there are still stable. We'll continue to follow
--- NOTE | 2020-10-05 17:02 | P.PN ---
Subjective Progress Note Date: 10/05/20 Livier Kilgore, is a 75-year-old female, who presented to [facility] emergency room with a chief complaint of worsening shortness of breath and bilateral lower extremity edema she was evaluated in the emergency room vital examination on presentation reveals a temperature of 97.9 pulse 91 respiration 16 and blood pressure 119/75 pulse ox 95% on room air her white blood count was 4.5 hemoglobin 10.9 platelet count 166 BUN was 18 creatinine 1.44 alkaline phosphatase 160 albumin and low at 3.2 TSH elevated at 6.53 coronavirus PCR was negative, chest x-ray revealed evidence of congestive heart failure and pulmonary edema, she was admitted to telemetry floor, cardiology consultation was requested. Patient has been having worsening lower extremity edema over the last few months with evidence of lymphedema, cause is unclear, she also has a known history of hypertension, gout, atrial fibrillation, and chronic kidney disease. On 10/02/2020 patient was seen and examined on the medical floor she is alert and oriented 3 in no apparent distress she is complaining of nausea today otherwise she denies any complaints there is no fever or chills no headache or dizziness no chest pain no shortness of breath no cough no vomiting no abdominal pain no diarrhea no blood in the stools no burning with urination no frequency or urgency no hematuria. Patient is still having significant lower extremity edema, she was started on Lasix drip yesterday however this had to be discontinued due to low blood pressure, she was evaluated today by nephrology again she was started on midodrine for low blood pressure and will be restarted on IV lasix drip. On 10/03/2020 patient was seen and examined on the medical floor she is alert and oriented 3 in no distress she is still complaining of severe bilateral lower extremity swelling otherwise no complaints at this time there is no fever or chills no headache or dizziness no chest pain, no shortness of breath no cough no nausea or vomiting no abdominal pain no diarrhea no blood in the stools no burning with urination no frequency or urgency and no hematuria. Blood pressure is low, she was started on midodrine yesterday she is still maintained on IV Lasix drip. On 10/04/2020 patient is alert and oriented 3 resting comfortably in bed patient remains on Lasix drip. UA positive for leukocyte esterase. Patient started on Rocephin. Urine culture ordered. PT OT consult area patient does live independently. Surgical consult possible placement. Dr. gray. consulted for possible inpatient rehab. Nephrology services are following. Weight down from 105.9 kg to 102.3 kg. Johnson catheter is in place. At this time patient denies chest pain or shortness breath. Patient denies nausea vomiting or diarrhea. on 10/05/2020 patient was seen and examined on the medical floor she is alert and oriented 3 in no apparent distress, there is no fever or chills no headache or dizziness no chest pain no shortness of breath no cough no nausea or vomiting no abdominal pain no diarrhea no blood in the stools, Johnson catheter is in place . Patient is maintained on IV Lasix drip, extremity swelling is improving gradually, she is followed by nephrology. Objective - Vital Signs Vital signs: Vital Signs Temp 97.7 F 10/05/20 05:00 Pulse 64 10/05/20 05:00 Resp 16 10/05/20 05:00 BP 101/62 10/05/20 05:00 Pulse Ox 94 L 10/05/20 05:00 Intake & Output 10/04/20 10/05/20 10/05/20 18:59 06:59 18:59 Intake Total 297.139 4972 Output Total 2400 1450 Balance -1729.417 -384 Weight 96 kg Intake: Intake, IV Titration 92.583 50 Amount Albumin Human 25% 50 ml 50 In Empty Bag 1 bag @ 50 mls/hr IVPB BID LOLY Rx#: [id number] Furosemide 100 mg In 92.583 Sodium Chloride 0.9% 90 ml @ 5 MG/HR 5 mls/hr IV .Q20H LOLY Rx#:[id number] Oral 578 1016 Output: Urine 2400 1450 Uretheral (Johnson) 1200 500 Other: Voiding Method Indwelling Catheter Indwelling Catheter # Voids 0 # Bowel Movements 0 - Exam In general patient is alert and oriented 3 in no apparent distress HEENT head normocephalic and atraumatic Neck is supple no JVD no goiter no lymphadenopathy Chest exam reveals crackles in both lung bases no wheezing Cardiac exam reveals regular heart sounds S1 and S2 no gallops no murmurs Abdomen is soft nontender no organomegaly with normal bowel sounds Extremity exam reveals significant edema and bilateral lower extremities extending up to the thighs and evidence of edema in the upper extremities Neurological examination reveals, no gross focal neurological deficits - Labs CBC & Chem 7: 10/05/20 04:01 10/05/20 04:01 Labs: Abnormal Lab Results - Last 24 Hours (Table) 10/04/20 10/04/20 10/04/20 Range/Units 04:55 04:55 16:56 Hgb 10.2 L (12.0-15.0) g/dL Hct 36.8 L (37.2-46.3) % MCV 77.3 L (80.0-97.0) fL MCH 21.4 L (27.0-32.0) pg MCHC 27.7 L (32.0-37.0) g/dL RDW 19.1 H (11.5-14.5) % Absolute Nucleated RBC 0.12 H (0.00-0.00) X 10*3/uL Lymphocytes # 0.69 L (0.90-5.00) X 10*3/uL Nucleated RBCs (0-0) /100 WBC NRBC/100 WBC Diff 2.0 H (0.0-0.0) /100 WBCS Creatinine 2.3 H (0.6-1.5) mg/dL Est GFR (CKD-EPI)AfAm 23.0 L (60.0-200.0) Est GFR (CKD-EPI)NonAf 19.8 L (60.0-200.0) BUN/Creatinine Ratio 11.74 L (12.00-20.00) Ratio POC Glucose (mg/dL) 102 H (75-99) mg/dL Calcium 8.0 L (8.7-10.3) mg/dL AST 60 H (13-35) U/L Alkaline Phosphatase 180 H (41-126) U/L Total Protein 5.7 L (6.2-8.2) g/dL Albumin 3.30 L (3.80-4.90) g/dL Albumin/Globulin Ratio 1.38 L (1.60-3.17) g/dL 10/04/20 10/05/20 10/05/20 Range/Units 20:11 04:01 07:10 Hgb 10.8 L (12.0-15.0) g/dL Hct (37.2-46.3) % MCV 74.4 L (80.0-97.0) fL MCH 22.2 L (27.0-32.0) pg MCHC 29.9 L (32.0-37.0) g/dL RDW 18.9 H (11.5-14.5) % Absolute Nucleated RBC (0.00-0.00) X 10*3/uL Lymphocytes # 0.8 L (0.90-5.00) X 10*3/uL Nucleated RBCs 3 H (0-0) /100 WBC NRBC/100 WBC Diff (0.0-0.0) /100 WBCS Creatinine (0.6-1.5) mg/dL Est GFR (CKD-EPI)AfAm (60.0-200.0) Est GFR (CKD-EPI)NonAf (60.0-200.0) BUN/Creatinine Ratio (12.00-20.00) Ratio POC Glucose (mg/dL) 115 H 186 H (75-99) mg/dL Calcium (8.7-10.3) mg/dL AST (13-35) U/L Alkaline Phosphatase (41-126) U/L Total Protein (6.2-8.2) g/dL Albumin (3.80-4.90) g/dL Albumin/Globulin Ratio (1.60-3.17) g/dL Microbiology - Last 24 Hours (Table) 10/03/20 00:45 Urine Culture - Preliminary Urine,Catheterized Assessment and Plan Plan: 1. Acute exacerbation of congestive heart failure will check echocardiogram and consult cardiology, patient started on Lasix. 2-D echo completed showing 55-60% 2. Severe and worsening lymphedema cause is unclear Will consult vascular surgery. evaluated by vascular surgery no acute indications for any vascular surgical intervention 3. Chronic kidney disease, will check kidney ultrasound and monitor kidney function daily 4. Underlying history of atrial fibrillation patient is maintained on Eliquis for stroke prevention, heart rate is well-controlled 5. Underlying history of hypertension 6. Underlying history of gout, will check uric acid level 7. [id number] diabetes mellitus millimeters so far maintained on diet only, will check hemoglobin A1c 8. Evidence of hypothyroidism with elevated TSH on presentation will start patient on Synthroid 25 g daily 9. Urinary tract infection. Patient started on Rocephin. Urine culture ordered. At this time patient is admitted to medical floor Consultation for cardiology, pulmonary, and vascular surgery initiated Will continue with IV Lasix and monitor kidney function closely For DVT prophylaxis patient is on Eliquis GI prophylaxis Will add Protonix Patient will likely need placement upon discharge. PT OT consulted Dr. Gray consulted for possible inpatient rehab Prognosis is guarded will follow closely
[2020-10-05 17:31] LABS: Glucose,Whole Blood 119 mg/dL (75-99)
[2020-10-05 19:54] LABS: Glucose,Whole Blood 137 mg/dL (75-99)
--- NOTE | 2020-10-05 21:09 | PN ---
PROGRESS NOTE The patient is seen for followup for acute kidney injury. Her renal function is fairly stable, serum creatinine staying at about 2 to 2.2 mg/dL. Patient is currently being diuresed. She is maintained on Lasix drip. She has an indwelling Johnson catheter with 24-hour urine output at 3.8 L. The Lasix drip is currently at 5 mg/hour. On examination, patient is comfortable. Blood pressure was 101/62, heart rate 64 per minute. She is afebrile EXAMINATION OF THE HEART: S1 and S2. EXAMINATION OF LUNGS: Decreased breath sounds at bases. ABDOMEN: Soft, non-tender. Examination of lower extremities shows edema, chronic, with chronic skin changes. [employer] exam is grossly intact. Labs show sodium of 138, potassium 3.9, chloride 104. CO2 is 20.5, BUN 28, creatinine 2.2, hemoglobin 10.8 g/dL. ASSESSMENT: 1. Acute kidney injury secondary to cardiorenal syndrome. Renal function fairly stable. Continue with Lasix drip. 2. Hypotension with possible underlying acute tubular necrosis as well secondary to the hypotension. 3. Acute on top of chronic diastolic congestive heart failure. 4. Atrial fibrillation with rapid ventricular response, currently with controlled ventricular response. PLAN: Continue with Lasix drip. Continue with midodrine. Repeat labs in a.m. Avoid further use of albumin. Maintain salt and fluid restriction. Avoid hypotension as well. MMODL / IJN: [id number] /
[2020-10-06] MEDS: LEVOTHYROXINE 25 MCG TAB PO SCH (05:18)
[2020-10-06 07:07] LABS: Glucose,Whole Blood 125 mg/dL (75-99)
[2020-10-06] MEDS: APIXABAN 5 MG TAB PO SCH ×2 (08:30→21:00)
[2020-10-06] MEDS: GABAPENTIN 100 MG CAP PO SCH ×3 (08:30→21:03)
[2020-10-06] MEDS: PANTOPRAZOLE 40 MG TABLET PO SCH (08:30)
[2020-10-06] MEDS: traMADol 50 MG TAB PO PRN (08:31)
[2020-10-06] MEDS: METOPROLOL TARTRATE 12.5 MG TAB PO SCH ×2 (08:33→20:35)
[2020-10-06] MEDS: MIDODRINE 5 MG TAB PO SCH ×3 (08:33→21:03)
[2020-10-06] MEDS: PETROLAT,WHITE/LAN/8-HYDROXYQU 227 GM OINT TOPICAL SCH (08:34)
[2020-10-06] MEDS: OXYBUTYNIN XL 5 MG TAB.ER.24 PO SCH (08:34)
[2020-10-06] MEDS: FUROSEMIDE 100 MG in SODIUM CHLORIDE 0.9% 90 ML IV SCH (08:52)
[2020-10-06 09:37] LABS: Basophils # (A) 0.06 X 10*3/uL (0.00-0.10); Basophils % (A) 1.1 %; Eosinophils # (A) 0.36 X 10*3/uL (0.04-0.35); Eosinophils % (A) 6.7 %; HCT 33.8 % (37.2-46.3); HGB 9.8 g/dL (12.0-15.0); Lymphocytes # (A) 0.57 X 10*3/uL (0.90-5.00); Lymphocytes % (A) 10.6 %; MCH 21.9 pg (27.0-32.0); MCV 75.6 fL (80.0-97.0); Mean Platelet Volume 10.1 fL (9.5-12.2); Monocytes # (A) 0.69 X 10*3/uL (0.20-1.00); Monocytes % (A) 12.9 %; Neutrophils # (A) 3.66 X 10*3/uL (1.80-7.70); Neutrophils % (A) 68.3 %; Platelet Count 219 X 10*3/uL (140-440); RBC 4.47 X 10*6/uL (4.10-5.20); RDW 19.4 % (11.5-14.5); WBC 5.36 X 10*3/uL (4.50-10.00)
[2020-10-06 10:24] LABS: African American GFR (CKD) 24.3 (60.0-200.0); Albumin 3.5 g/dL (3.80-4.90); Albumin/Globulin Ratio 1.52 (1.60-3.17); Anion Gap 8.4 mmol/L (4.00-12.00); BUN/Creat Ratio 13.18 Ratio (12.00-20.00); Calcium 8.2 mg/dL (8.7-10.3); Carbon Dioxide 28.6 mmol/L (21.6-31.8); Globulin 2.3 g/dL (1.6-3.3); Non-African American GFR(CKD) 20.9 (60.0-200.0); Potassium 2.9 mmol/L (3.5-5.5); Total Bilirubin 0.8 mg/dL (0.3-1.2); Total Protein 5.8 g/dL (6.2-8.2)
[2020-10-06 11:18] LABS: Glucose,Whole Blood 126 mg/dL (75-99)
--- NOTE | 2020-10-06 12:17 | P.PN ---
Subjective This is a pleasant 75-year-old female past medical history significant for chronic persistent atrial fibrillation on Eliquis, chronic diastolic dysfunction, permanent pacemaker implantation, pulmonary hypertension, anemia and subaortic web with outflow tract obstruction. She follows in the office with Dr. Ruby. She is seen and examined sitting up in the chair eating breakfast. She just completed working with physical therapy. She is a 2-person assist. They stated her breathing was stable throughout therapy with no noted shortness of breath. The patient herself denies shortness of breath. She has no chest pain, dizziness or palpitations. She is complaining of pain in her legs, worse on the left. Blood pressure 104/64 heart rate 63 afebrile and maintaining oxygen saturation on room air. Laboratory data reviewed, WBC 5, hemoglobin 9.8, platelets 219, sodium 138, potassium 2.9, creatinine 2.2. 24-hr urine output 4250 cc. weight down to 90ks from 105 on admission. GENERAL: Well-appearing, well-nourished and in no acute distress. Morbidly obese. NECK: Supple without JVD or thyromegaly. LUNGS: Breath sounds clear to auscultation bilaterally. Respiration equal and unlabored. No wheezes, rales or rhonchi. Difficult to auscultate clearly due to body habitus, no clear rales appreciated. HEART: Irregular rate and rhythm with systolic ejection murmur at the base, no rubs or gallops. S1 and S2 heard. EXTREMITIES: Chronic edema with chronic stasis changes noted. No clubbing or cyanosis. Peripheral pulses intact. ASSESSMENT Acute on chronic diastolic heart failure Chronic persistent atrial fibrillation History of hypertrophic cardiomyopathy Pulmonary hypertension Chronic venous stasis Diabetes mellitus Aortic stenosis, moderate Hypertrophic cardiomyopathy with BERK[place], gradient 24 mmHg Mitral regurgitation Tricuspid regurgitation Pulmonary hypertension PLAN Transition to oral diuretics. Renal function stable. Replace potassium per protocol. Clinically she has greatly improved from a heart failure perspective. Can be discharged when appropriate per the medical team. Nurse Practitioner note has been reviewed, I agree with a documented findings and plan of care. Patient was seen and examined. Objective - Vital Signs Vital signs: Vital Signs Temp 98.0 F 10/06/20 05:00 Pulse 63 10/06/20 05:00 Resp 16 10/06/20 05:00 BP 104/64 10/06/20 05:00 Pulse Ox 94 L 10/06/20 05:00 Intake & Output 10/05/20 10/06/20 10/06/20 18:59 06:59 18:59 Intake Total 1128.667 440 100 Output Total 2049 2199 Balance -921.333 -1760 100 Weight 90 kg Intake: Intake, IV Titration 184.667 100 Amount Furosemide 100 mg In 84.667 100 Sodium Chloride 0.9% 90 ml @ 5 MG/HR 5 mls/hr IV .Q20H LOLY Rx#:[id number] cefTRIAXone 1 gm In 100 Sodium Chloride 0.9% 50 ml @ 100 mls/hr IVPB Q24HR LOLY Rx#:[id number] Oral 944 440 Output: Urine 2049 2199 Uretheral (Johnson) 1100 Other: Voiding Method Indwelling Catheter Indwelling Catheter Indwelling Catheter # Voids 0 - Labs CBC & Chem 7: 10/06/20 04:06 10/06/20 04:06 Labs: Abnormal Lab Results - Last 24 Hours (Table) 10/05/20 10/05/20 10/05/20 Range/Units 11:08 17:29 19:52 Hgb (12.0-15.0) g/dL Hct (37.2-46.3) % MCV (80.0-97.0) fL MCH (27.0-32.0) pg MCHC (32.0-37.0) g/dL RDW (11.5-14.5) % Absolute Nucleated RBC (0.00-0.00) X 10*3/uL Lymphocytes # (0.90-5.00) X 10*3/uL Eosinophils # (0.04-0.35) X 10*3/uL NRBC/100 WBC Diff (0.0-0.0) /100 WBCS Potassium (3.5-5.5) mmol/L BUN (9.0-27.0) mg/dL Creatinine (0.6-1.5) mg/dL Est GFR (CKD-EPI)AfAm (60.0-200.0) Est GFR (CKD-EPI)NonAf (60.0-200.0) POC Glucose (mg/dL) 180 H 119 H 137 H (75-99) mg/dL Calcium (8.7-10.3) mg/dL AST (13-35) U/L ALT (8-44) U/L Alkaline Phosphatase (41-126) U/L Total Protein (6.2-8.2) g/dL Albumin (3.80-4.90) g/dL Albumin/Globulin Ratio (1.60-3.17) g/dL 10/06/20 10/06/20 10/06/20 Range/Units 04:06 04:06 07:06 Hgb 9.8 L (12.0-15.0) g/dL Hct 33.8 L (37.2-46.3) % MCV 75.6 L (80.0-97.0) fL MCH 21.9 L (27.0-32.0) pg MCHC 29.0 L (32.0-37.0) g/dL RDW 19.4 H (11.5-14.5) % Absolute Nucleated RBC 0.12 H (0.00-0.00) X 10*3/uL Lymphocytes # 0.57 L (0.90-5.00) X 10*3/uL Eosinophils # 0.36 H (0.04-0.35) X 10*3/uL NRBC/100 WBC Diff 2.2 H (0.0-0.0) /100 WBCS Potassium 2.9 L (3.5-5.5) mmol/L BUN 29.0 H (9.0-27.0) mg/dL Creatinine 2.2 H (0.6-1.5) mg/dL Est GFR (CKD-EPI)AfAm 24.3 L (60.0-200.0) Est GFR (CKD-EPI)NonAf 20.9 L (60.0-200.0) POC Glucose (mg/dL) 125 H (75-99) mg/dL Calcium 8.2 L (8.7-10.3) mg/dL AST 81 H (13-35) U/L ALT 60 H (8-44) U/L Alkaline Phosphatase 173 H (41-126) U/L Total Protein 5.8 L (6.2-8.2) g/dL Albumin 3.50 L (3.80-4.90) g/dL Albumin/Globulin Ratio 1.52 L (1.60-3.17) g/dL Microbiology - Last 24 Hours (Table) 02/06/21 00:45 Urine Culture - Final Urine,Catheterized
--- NOTE | 2020-10-06 13:19 | P.PN ---
Subjective Progress Note Date: 10/06/20 75-year-old here patient is being seen in follow-up today. The patient has diastolic heart failure with anasarca and extensive fluid overload. The patient had an ejection fraction of 55-60% along with moderate concentric LVH, moderate to severe aortic stenosis, severe pulmonary hypertension with a PA pressure of around 90 mmHg. The patient had increased swelling in lower extremities bilaterally. She has a Johnson catheter in place which is calculated at 5 mg an hour. She is also being followed up by nephrology. In addition to that, she has multiple other comorbidities including CVA, diabetes mellitus, fibromyalgia, osteoarthritis, chronic skin dryness, stress urinary incontinence, hiatal hernia and a previous history of pacemaker insertion. The patient has moderate to severe aortic stenosis and she has a chronic systolic ejection murmur in place. She has developed an acute kidney injury with diuretics. The hraris virus/19 testing was negative. She is on room air oxygen. Chest x-ray still showing bilateral pleural effusions slightly worse on the right along with folic acid congestion. On today's evaluation the patient continues to be diuresed with Lasix drip and her weight is down to 90 kg which is down from 105 kg. The neck fluid balance over the past 24 hours has been at least 5 L negative and the patient is still having a stable renal function with a creatinine of 2.2 and a BUN of 29. Potassium level is at 2.[address] and the potassium level has joan pped because of diuresis. Clinically, the patient is feeling well. She has no significant amount of edema in lower extremities bilaterally. She has significant valvular heart disease with severe right-sided heart failure and pulmonary hypertension. Johnson catheter is in place and the patient continues to diurese aggressively. No chest pain. Shortness of breath is also improving. Objective - Vital Signs Vital signs: Vital Signs Temp 98.0 F 10/06/20 05:00 Pulse 63 10/06/20 05:00 Resp 16 10/06/20 05:00 BP 104/64 10/06/20 05:00 Pulse Ox 94 L 10/06/20 05:00 Intake & Output 10/05/20 10/06/20 10/06/20 18:59 06:59 18:59 Intake Total 1128.667 440 560 Output Total 2050 2200 1900 Balance -921.333 -1760 -1340 Weight 90 kg Intake: Intake, IV Titration 184.667 100 Amount Furosemide 100 mg In 84.667 100 Sodium Chloride 0.9% 90 ml @ 5 MG/HR 5 mls/hr IV .Q20H LOLY Rx#:[id number] cefTRIAXone 1 gm In 100 Sodium Chloride 0.9% 50 ml @ 100 mls/hr IVPB Q24HR LOLY Rx#:[id number] Oral [id number] 460 Output: Urine 2050 2200 1900 Uretheral (Johnson) 1100 Other: Voiding Method Indwelling Catheter Indwelling Catheter Indwelling Catheter # Voids 0 - Exam GENERAL EXAM: Alert, very pleasant 75-year-old female patient, on room air, comfortable in no apparent distress. HEAD: Normocephalic. EYES: Normal reaction of pupils, equal size. NOSE: Clear with pink turbinates. THROAT: No erythema or exudates. NECK: No masses, elevated JVD. CHEST: No chest wall deformity. LUNGS: Equal air entry with bibasilar crackles CVS: S1 and S2 normal with and the patient has a slow irregular rhythm consistent with atrial fibrillation and she has a high grade 4/6 systolic ej ection murmur over the apex consistent with aortic stenosis. ABDOMEN: No hepatosplenomegaly, normal bowel sounds, no guarding or rigidity. SPINE: No scoliosis or deformity SKIN: No rashes CENTRAL NERVOUS SYSTEM: No focal deficits, tone is normal in all 4 extremities. EXTREMITIES: There is 1-2+ peripheral edema. No clubbing, no cyanosis. Peripheral pulses are intact. - Labs CBC & Chem 7: 10/06/20 04:06 10/06/20 04:06 Labs: Abnormal Lab Results - Last 24 Hours (Table) 10/05/20 10/05/20 10/06/20 Range/Units 17:29 19:52 04:06 Hgb 9.8 L (12.0-15.0) g/dL Hct 33.8 L (37.2-46.3) % MCV 75.6 L (80.0-97.0) fL MCH 21.9 L (27.0-32.0) pg MCHC 29.0 L (32.0-37.0) g/dL RDW 19.4 H (11.5-14.5) % Absolute Nucleated RBC 0.12 H (0.00-0.00) X 10*3/uL Lymphocytes # 0.57 L (0.90-5.00) X 10*3/uL Eosinophils # 0.36 H (0.04-0.35) X 10*3/uL NRBC/100 WBC Diff 2.2 H (0.0-0.0) /100 WBCS Potassium (3.5-5.5) mmol/L BUN (9.0-27.0) mg/dL Creatinine (0.6-1.5) mg/dL Est GFR (CKD-EPI)AfAm (60.0-200.0) Est GFR (CKD-EPI)NonAf (60.0-200.0) POC Glucose (mg/dL) 119 H 137 H (75-99) mg/dL Calcium (8.7-10.3) mg/dL AST (13-35) U/L ALT (8-44) U/L Alkaline Phosphatase (41-126) U/L Total Protein (6.2-8.2) g/dL Albumin (3.80-4.90) g/dL Albumin/Globulin Ratio (1.60-3.17) g/dL 10/06/20 10/06/20 10/06/20 Range/Units 04:06 07:06 11:16 Hgb (12.0-15.0) g/dL Hct (37.2-46.3) % MCV (80.0-97.0) fL MCH (27.0-32.0) pg MCHC (32.0-37.0) g/dL RDW (11.5-14.5) % Absolute Nucleated RBC (0.00-0.00) X 10*3/uL Lymphocytes # (0.90-5.00) X 10*3/uL Eosinophils # (0.04-0.35) X 10*3/uL NRBC/100 WBC Diff (0.0-0.0) /100 WBCS Potassium 2.9 L (3.5-5.5) mmol/L BUN 29.0 H (9.0-27.0) mg/dL Creatinine 2.2 H (0.6-1.5) mg/dL Est GFR (CKD-EPI)AfAm 24.3 L (60.0-200.0) Est GFR (CKD-EPI)NonAf 20.9 L (60.0-200.0) POC Glucose (mg/dL) 125 H 126 H (75-99) mg/dL Calcium 8.2 L (8.7-10.3) mg/dL AST 81 H (13-35) U/L ALT 60 H (8-44) U/L Alkaline Phosphatase 173 H (41-126) U/L Total Protein 5.8 L (6.2-8.2) g/dL Albumin 3.50 L (3.80-4.90) g/dL Albumin/Globulin Ratio 1.52 L (1.60-3.17) g/dL Microbiology - Last 24 Hours (Table) 10/03/20 00:45 Urine Culture - Final Urine,Catheterized Assessment and Plan Plan: 1 Acute on chronic diastolic congestive heart failure. Patient has severe concentric LVH, preserved LV function, however she has left ventricular outflow tract obstruction with moderate to severe aortic stenosis and severe right-sided heart failure with severe pulmonary hypertension with a PA pressure estimated to be 89 mmHg. The patient accordingly has developed failure, biventricular failure including the right than left-sided. The chest x-ray still consistent with CHF and the patient remains on Lasix drip. 2 Diffuse body edema and anasarca, which quickly to the lower extremities. 3 Chronic venous stasis and hyperpigmentation of the lower extremities, secondary to venous incompetence. 4 Obesity. 5 History of subaortic web and outflow track obstruction. 6 History of chronic atrial fibrillation. 7 Severe pulmonary hypertension. 8 History of CVA. 9 History of diabetes mellitus. 10 History of fibromyalgia. 11 History of hiatal hernia. 12 Stress urinary incontinence. 13 History of osteoarthritis. 14 Chronic dry skin. Plan: Remains on a Lasix drip and will continue the Lasix drip 5 mg an hour. Significant weight loss and negative fluid balance with stable renal function Overall pulmonary status is stable for now Follow-up chest x-ray from yesterday still showing cardiomegaly and bilateral pleural effusion pulmonary vessel congestion. In comparison to the previous chest x-ray from 09/30/2020, findings are essentially unchanged and there are still stable. We'll continue to follow
[2020-10-06] MEDS: POTASSIUM BICARBONATE/CIT AC 20 MEQ TABLET.EFF NG-TUBE SCH ×3 (15:14→16:59)
--- NOTE | 2020-10-06 15:38 | P.PN ---
Subjective Progress Note Date: 10/06/20 Livier Kilgore, is a 75-year-old female, who presented to [facility] emergency room with a chief complaint of worsening shortness of breath and bilateral lower extremity edema she was evaluated in the emergency room vital examination on presentation reveals a temperature of 97.9 pulse 91 respiration 16 and blood pressure 119/75 pulse ox 95% on room air her white blood count was 4.5 hemoglobin 10.9 platelet count 166 BUN was 18 creatinine 1.44 alkaline phosphatase 160 albumin and low at 3.2 TSH elevated at 6.53 coronavirus PCR was negative, chest x-ray revealed evidence of congestive heart failure and pulmonary edema, she was admitted to telemetry floor, cardiology consultation was requested. Patient has been having worsening lower extremity edema over the last few months with evidence of lymphedema, cause is unclear, she also has a known history of hypertension, gout, atrial fibrillation, and chronic kidney disease. On 10/02/2020 patient was seen and examined on the medical floor she is alert and oriented 3 in no apparent distress she is complaining of nausea today otherwise she denies any complaints there is no fever or chills no headache or dizziness no chest pain no shortness of breath no cough no vomiting no abdominal pain no diarrhea no blood in the stools no burning with urination no frequency or urgency no hematuria. Patient is still having significant lower extremity edema, she was started on Lasix drip yesterday however this had to be discontinued due to low blood pressure, she was evaluated today by nephrology again she was started on midodrine for low blood pressure and will be restarted on IV lasix drip. On 10/03/2020 patient was seen and examined on the medical floor she is alert and oriented 3 in no distress she is still complaining of severe bilateral lower extremity swelling otherwise no complaints at this time there is no fever or chills no headache or dizziness no chest pain, no shortness of breath no cough no nausea or vomiting no abdominal pain no diarrhea no blood in the stools no burning with urination no frequency or urgency and no hematuria. Blood pressure is low, she was started on midodrine yesterday she is still maintained on IV Lasix drip. On 10/04/2020 patient is alert and oriented 3 resting comfortably in bed patient remains on Lasix drip. UA positive for leukocyte esterase. Patient started on Rocephin. Urine culture ordered. PT OT consult area patient does live independently. Surgical consult possible placement. Dr. gray. consulted for possible inpatient rehab. Nephrology services are following. Weight down from 105.9 kg to 102.3 kg. Johnson catheter is in place. At this time patient denies chest pain or shortness breath. Patient denies nausea vomiting or diarrhea. on 10/05/2020 patient was seen and examined on the medical floor she is alert and oriented 3 in no apparent distress, there is no fever or chills no headache or dizziness no chest pain no shortness of breath no cough no nausea or vomiting no abdominal pain no diarrhea no blood in the stools, Johnson catheter is in place . Patient is maintained on IV Lasix drip, extremity swelling is improving gradually, she is followed by nephrology. On 10/06/2020 patient was seen and examined on the medical floor she is alert and oriented 3 in no apparent distress , she is still complaining of shortness of breath with any activity otherwise she denies any complaints there is no fever or chills no headache or dizziness no chest pain no palpitation no cough no nausea or vomiting no abdominal pain no diarrhea no blood in the stools no burning with urination no frequency or urgency and no hematuria Objective - Vital Signs Vital signs: Vital Signs Temp 98.0 F 10/06/20 05:00 Pulse 63 10/06/20 05:00 Resp 16 10/06/20 05:00 BP 104/64 10/06/20 05:00 Pulse Ox 94 L 10/06/20 05:00 Intake & Output 10/05/20 10/06/20 10/06/20 18:59 06:59 18:59 Intake Total 1128.667 440 100 Output Total 2049 2199 Balance -921.160 -1760 100 Weight 90 kg Intake: Intake, IV Titration 184.667 100 Amount Furosemide 100 mg In 84.667 100 Sodium Chloride 0.9% 90 ml @ 5 MG/HR 5 mls/hr IV .Q20H [facility] Rx#:[id number] cefTRIAXone 1 gm In 100 Sodium Chloride 0.9% 50 ml @ 100 mls/hr IVPB Q24HR [facility] Rx#:[id number] Oral 944 440 Output: Urine 2049 2199 Uretheral (Johnson) 1100 Other: Voiding Method Indwelling Catheter Indwelling Catheter # Voids 0 - Exam In general patient is alert and oriented 3 in no apparent distress HEENT head normocephalic and atraumatic Neck is supple no JVD no goiter no lymphadenopathy Chest exam reveals crackles in both lung bases no wheezing Cardiac exam reveals regular heart sounds S1 and S2 no gallops no murmurs Abdomen is soft nontender no organomegaly with normal bowel sounds Extremity exam reveals significant edema and bilateral lower extremities extending up to the thighs and evidence of edema in the upper extremities Neurological examination reveals, no gross focal neurological deficits - Labs CBC & Chem 7: 10/06/20 04:06 10/06/20 04:06 Labs: Abnormal Lab Results - Last 24 Hours (Table) 10/05/20 10/05/20 10/05/20 Range/Units 04:01 11:08 17:29 Carbon Dioxide 20.5 L (21.6-31.8) mmol/L Anion Gap 13.50 H (4.00-12.00) mmol/L BUN 28.0 H (9.0-27.0) mg/dL Creatinine 2.2 H (0.6-1.5) mg/dL Est GFR (CKD-EPI)AfAm 24.3 L (60.0-200.0) Est GFR (CKD-EPI)NonAf 20.9 L (60.0-200.0) POC Glucose (mg/dL) 180 H 119 H (75-99) mg/dL Calcium 8.1 L (8.7-10.3) mg/dL AST 76 H (13-35) U/L ALT 47 H (8-44) U/L Alkaline Phosphatase 172 H (41-126) U/L Total Protein 5.6 L (6.2-8.2) g/dL Albumin 3.40 L (3.80-4.90) g/dL Albumin/Globulin Ratio 1.55 L (1.60-3.17) g/dL 10/05/20 10/06/20 Range/Units 19:52 07:06 Carbon Dioxide (21.6-31.8) mmol/L Anion Gap (4.00-12.00) mmol/L BUN (9.0-27.0) mg/dL Creatinine (0.6-1.5) mg/dL Est GFR (CKD-EPI)AfAm (60.0-200.0) Est GFR (CKD-EPI)NonAf (60.0-200.0) POC Glucose (mg/dL) 137 H 125 H (75-99) mg/dL Calcium (8.7-10.3) mg/dL AST (13-35) U/L ALT (8-44) U/L Alkaline Phosphatase (41-126) U/L Total Protein (6.2-8.2) g/dL Albumin (3.80-4.90) g/dL Albumin/Globulin Ratio (1.60-3.17) g/dL Microbiology - Last 24 Hours (Table) 10/03/20 00:45 Urine Culture - Final Urine,Catheterized Assessment and Plan Plan: 1. Acute exacerbation of congestive heart failure will check echocardiogram and consult cardiology, patient started on Lasix. 2-D echo completed showing 55-60% 2. Severe and worsening lymphedema cause is unclear Will consult vascular surgery. evaluated by vascular surgery no acute indications for any vascular surgical intervention 3. Chronic kidney disease, will check kidney ultrasound and monitor kidney function daily 4. Underlying history of atrial fibrillation patient is maintained on Eliquis for stroke prevention, heart rate is well-controlled 5. Underlying history of hypertension 6. Underlying history of gout, will check uric acid level 7. [id number]-qcohpoysg diabetes mellitus millimeters so far maintained on diet only, will check hemoglobin A1c 8. Evidence of hypothyroidism with elevated TSH on presentation will start patient on Synthroid 25 g daily 9. Urinary tract infection. Patient started on Rocephin. Urine culture ordered. At this time patient is admitted to medical floor Consultation for cardiology, pulmonary, and vascular surgery initiated Will continue with IV Lasix and monitor kidney function closely For DVT prophylaxis patient is on Eliquis GI prophylaxis Will add Protonix Patient will likely need placement upon discharge. PT OT consulted Dr. Gray consulted for possible inpatient rehab Prognosis is guarded will follow closely
[2020-10-06] MEDS ORDERED: FUROSEMIDE 40 MG TAB PO SCH (16:00)
[2020-10-06] MEDS: FUROSEMIDE 10 MG/ML 4 ML VIAL IV SCH (17:03)
[2020-10-06 17:15] LABS: Glucose,Whole Blood 129 mg/dL (75-99)
--- NOTE | 2020-10-06 17:21 | PN ---
PROGRESS NOTE Patient is seen for followup for acute kidney injury and volume overload. She is currently maintained on Lasix drip. Patient states her leg swelling has improved. Serum creatinine is staying at about 2.2 mg/dL. Weight is down by about 6 kg, if this is accurate. Her 24-hour urine output is documented at 4.2 L. Patient states her swelling has improved. She denies significant chest pains or shortness of breath. On examination, blood pressure was 78/52, heart rate 64 per minute. She is afebrile. Examination shows patient is awake, alert, oriented x3. Lower extremities show chronic skin changes, chronic edema. Abdomen is soft, obese, nontender. EXAMINATION OF THE HEART: S1, S2. EXAMINATION OF LUNGS: Decreased breath sounds at the bases. LIMNOLOGIST exam grossly intact. Labs show hemoglobin 9.8, sodium 138, potassium 2.9, BUN 29, creatinine 2.2. ASSESSMENT: 1. Acute kidney injury, mostly cardiorenal. We will switch to IV push Lasix. 2. Hypokalemia associated with diuresis, status post replacement. 3. Volume overload, currently improved. 4. Hypotension, maintained on midodrine. PLAN: Switch Lasix to IV. Repeat labs in a.m. Monitor potassium. Check magnesium. MMODL / IJN: [id number] /
[2020-10-06 18:59] LABS: Magnesium 1.6 mg/dL (1.6-2.3); Potassium 3.7 mmol/L (3.5-5.1)
[2020-10-06 20:12] LABS: Glucose,Whole Blood 143 mg/dL (75-99)
[2020-10-06] MEDS ORDERED: Magnesium Replacement Protocol 1 EACH MISC MISCELLANE PRN (20:33)
[2020-10-06] MEDS: MAGNESIUM SULFATE-D5W PMX 1 GM in DEXTROSE/WATER 1 100ML.BAG IVPB SCH ×2 (21:00→23:17)
[2020-10-06] MEDS ORDERED: POTASSIUM CHLORIDE ER 20 MEQ TAB.ER PO SCH (21:00)
[2020-10-07] MEDS: FUROSEMIDE 10 MG/ML 4 ML VIAL IV SCH ×4 (00:23→23:36)
[2020-10-07 01:54] LABS: % Iron Saturation 4.71 (12.00-45.00)
[2020-10-07 07:13] LABS: Glucose,Whole Blood 97 mg/dL (75-99)
[2020-10-07] MEDS: GABAPENTIN 100 MG CAP PO SCH ×3 (09:35→22:06)
[2020-10-07] MEDS: PANTOPRAZOLE 40 MG TABLET PO SCH (09:35)
[2020-10-07] MEDS: APIXABAN 5 MG TAB PO SCH ×2 (09:35→22:06)
[2020-10-07] MEDS: traMADol 50 MG TAB PO PRN ×2 (09:37→17:18)
[2020-10-07] MEDS: MIDODRINE 5 MG TAB PO SCH ×3 (09:39→22:05)
[2020-10-07] MEDS: OXYBUTYNIN XL 5 MG TAB.ER.24 PO SCH (09:40)
[2020-10-07] MEDS: LEVOTHYROXINE 25 MCG TAB PO SCH (09:40)
[2020-10-07] MEDS: METOPROLOL TARTRATE 12.5 MG TAB PO SCH ×2 (09:40→22:37)
[2020-10-07] MEDS: PETROLAT,WHITE/LAN/8-HYDROXYQU 227 GM OINT TOPICAL SCH (09:47)
[2020-10-07 11:39] LABS: Glucose,Whole Blood 155 mg/dL (75-99)
--- NOTE | 2020-10-07 12:52 | P.PN ---
Subjective Progress Note Date: 10/07/20 Livier Kilgore, is a 75-year-old female, who presented to [facility] emergency room with a chief complaint of worsening shortness of breath and bilateral lower extremity edema she was evaluated in the emergency room vital examination on presentation reveals a temperature of 97.9 pulse 91 respiration 16 and blood pressure 119/75 pulse ox 95% on room air her white blood count was 4.5 hemoglobin 10.9 platelet count 166 BUN was 18 creatinine 1.44 alkaline phosphatase 160 albumin and low at 3.2 TSH elevated at 6.53 coronavirus PCR was negative, chest x-ray revealed evidence of congestive heart failure and pulmonary edema, she was admitted to telemetry floor, cardiology consultation was requested. Patient has been having worsening lower extremity edema over the last few months with evidence of lymphedema, cause is unclear, she also has a known history of hypertension, gout, atrial fibrillation, and chronic kidney disease. On 10/02/2020 patient was seen and examined on the medical floor she is alert and oriented 3 in no apparent distress she is complaining of nausea today otherwise she denies any complaints there is no fever or chills no headache or dizziness no chest pain no shortness of breath no cough no vomiting no abdominal pain no diarrhea no blood in the stools no burning with urination no frequency or urgency no hematuria. Patient is still having significant lower extremity edema, she was started on Lasix drip yesterday however this had to be discontinued due to low blood pressure, she was evaluated today by nephrology again she was started on midodrine for low blood pressure and will be restarted on IV lasix drip. On 10/03/2020 patient was seen and examined on the medical floor she is alert and oriented 3 in no distress she is still complaining of severe bilateral lower extremity swelling otherwise no complaints at this time there is no fever or chills no headache or dizziness no chest pain, no shortness of breath no cough no nausea or vomiting no abdominal pain no diarrhea no blood in the stools no burning with urination no frequency or urgency and no hematuria. Blood pressure is low, she was started on midodrine yesterday she is still maintained on IV Lasix drip. On 10/04/2020 patient is alert and oriented 3 resting comfortably in bed patient remains on Lasix drip. UA positive for leukocyte esterase. Patient started on Rocephin. Urine culture ordered. PT OT consult area patient does live independently. Surgical consult possible placement. Dr. hoffman. consulted for possible inpatient rehab. Nephrology services are following. Weight down from 105.9 kg to 102.3 kg. Johnson catheter is in place. At this time patient denies chest pain or shortness breath. Patient denies nausea vomiting or diarrhea. on 10/05/2020 patient was seen and examined on the medical floor she is alert and oriented 3 in no apparent distress, there is no fever or chills no headache or dizziness no chest pain no shortness of breath no cough no nausea or vomiting no abdominal pain no diarrhea no blood in the stools, Johnson catheter is in place . Patient is maintained on IV Lasix drip, extremity swelling is improving gradually, she is followed by nephrology. On 10/06/2020 patient was seen and examined on the medical floor she is alert and oriented 3 in no apparent distress , she is still complaining of shortness of breath with any activity otherwise she denies any complaints there is no fever or chills no headache or dizziness no chest pain no palpitation no cough no nausea or vomiting no abdominal pain no diarrhea no blood in the stools no burning with urination no frequency or urgency and no hematuria On 10/07/2020. Patient is alert and oriented 3. Patient currently sitting up in chair. Patient remains on IV Lasix. This time patient denies chest pain or shortness of breath. Patient denies nausea vomiting diarrhea. Patient denies any urinary burning or frequency. Social work has been consulted for possible ECF placement upon discharge Objective - Vital Signs Vital signs: Vital Signs Temp 94.7 F L 10/07/20 11:02 Pulse 76 10/07/20 11:02 Resp 14 10/07/20 11:02 BP 109/67 10/07/20 11:02 Pulse Ox 97 10/07/20 11:02 Intake & Output 10/06/20 10/07/20 10/07/20 18:59 06:59 18:59 Intake Total 680 790 Output Total 3000 1850 1300 Balance -2320 -1060 -1300 Weight 101 kg Intake: Intake, IV Titration 100 200 Amount Furosemide 100 mg In 100 Sodium Chloride 0.9% 90 ml @ 5 MG/HR 5 mls/hr IV .Q20H [facility] Rx#:[id number] Magnesium Sulfate-D5w Pmx 200 1 gm In Dextrose/Water 1 100ml.bag @ 100 mls/hr IVPB Q1H [facility] Rx#: [id number] Oral [id number] 590 Output: Urine 3000 1850 1300 Uretheral (Johnson) 1850 Other: Voiding Method Indwelling Catheter Indwelling Catheter Indwelling Catheter - Exam In general patient is alert and oriented 3 in no apparent distress HEENT head normocephalic and atraumatic Neck is supple no JVD no goiter no lymphadenopathy Chest exam reveals crackles in both lung bases no wheezing Cardiac exam reveals regular heart sounds S1 and S2 no gallops no murmurs Abdomen is soft nontender no organomegaly with normal bowel sounds Extremity exam reveals significant edema and bilateral lower extremities extending up to the thighs and evidence of edema in the upper extremities Neurological examination reveals, no gross focal neurological deficits - Labs CBC & Chem 7: 10/06/20 04:06 10/06/20 18:24 Labs: Abnormal Lab Results - Last 24 Hours (Table) 10/06/20 10/06/20 10/06/20 Range/Units 04:06 17:13 20:10 POC Glucose (mg/dL) 129 H 143 H (75-99) mg/dL Iron 13 L (50-170) ug/dL % Saturation 4.71 L (12.00-45.00) 10/07/20 Range/Units 11:29 POC Glucose (mg/dL) 155 H (75-99) mg/dL Iron (50-170) ug/dL % Saturation (12.00-45.00) Assessment and Plan Plan: 1. Acute exacerbation of congestive heart failure will check echocardiogram and consult cardiology, patient started on Lasix. 2-D echo completed showing 55- 60%. Patient has been transitioned Lasix drip to IV Lasix 2. Severe and worsening lymphedema cause is unclear Will consult vascular surgery. evaluated by vascular surgery no acute indications for any vascular surgical intervention 3. Chronic kidney disease, will check kidney ultrasound and monitor kidney function daily 4. Underlying history of atrial fibrillation patient is maintained on Eliquis for stroke prevention, heart rate is well-controlled 5. Underlying history of hypertension 6. Underlying history of gout, will check uric acid level 7. Smx-tynmbyy-gtcaehxam diabetes mellitus millimeters so far maintained on diet only, will check hemoglobin A1c 8. Evidence of hypothyroidism with elevated TSH on presentation will start patient on Synthroid 25 g daily 9. Urinary tract infection. Patient started on Rocephin. Urine culture ordered. At this time patient is admitted to medical floor Consultation for cardiology, pulmonary, and vascular surgery initiated Will continue with IV Lasix and monitor kidney function closely For DVT prophylaxis patient is on Eliquis GI prophylaxis Will add Protonix Patient will likely need placement upon discharge. PT OT consulted Social work consulted for possible ECF placement upon discharge
--- NOTE | 2020-10-07 14:04 | P.PN ---
Subjective This is a pleasant 75-year-old female past medical history significant for chronic persistent atrial fibrillation on Eliquis, chronic diastolic dysfunction, permanent pacemaker implantation, pulmonary hypertension, anemia and subaortic web with outflow tract obstruction. She follows in the office with Dr. Ruby. She is seen and examined sitting up in the chair in no acute distress. She denies chest pain, shortness of breath, dizziness or palpitations. She complains of ongoing lower extremity pain. She is maintained on lasix IV 40 mg TID per nephrology. Daily labs are pending. Blood pressure 106/58 heart rate 63 afebrile and maintaining oxygen saturation on room air. 24- hr urine output 4850 cc. GENERAL: Well-appearing, well-nourished and in no acute distress. Morbidly obese. NECK: Supple without JVD or thyromegaly. LUNGS: Breath sounds clear to auscultation bilaterally. Respiration equal and unlabored. No wheezes, rales or rhonchi. Difficult to auscultate clearly due to body habitus, no rales appreciated. HEART: Irregular rate and rhythm with systolic ejection murmur at the base, no rubs or gallops. S1 and S2 heard. EXTREMITIES: Chronic edema with chronic stasis changes noted. No clubbing or cyanosis. Peripheral pulses intact. ASSESSMENT Acute on chronic diastolic heart failure Chronic persistent atrial fibrillation History of hypertrophic cardiomyopathy Pulmonary hypertension Chronic venous stasis Diabetes mellitus Aortic stenosis, moderate Hypertrophic cardiomyopathy with BERKLEY, gradient 24 mmHg Mitral regurgitation Tricuspid regurgitation Pulmonary hypertension PLAN Continue current medical regimen. Diuretic management per nephrology. Nurse Practitioner note has been reviewed, I agree with a documented findings and plan of care. Patient was seen and examined. Objective - Vital Signs Vital signs: Vital Signs Temp 95.8 F L 10/07/20 13:34 Pulse 63 10/07/20 13:36 Resp 18 10/07/20 13:36 BP 106/58 10/07/20 13:34 Pulse Ox 97 10/07/20 13:34 Intake & Output 10/06/20 10/07/20 10/07/20 18:59 06:59 18:59 Intake Total 680 790 Output Total 3000 1850 1300 Balance -2320 -1060 -1300 Weight 101 kg Intake: Intake, IV Titration 100 200 Amount Furosemide 100 mg In 100 Sodium Chloride 0.9% 90 ml @ 5 MG/HR 5 mls/hr IV .Q20H [facility] Rx#:[id number] Magnesium Sulfate-D5w Pmx 200 1 gm In Dextrose/Water 1 100ml.bag @ 100 mls/hr IVPB Q1H [facility] Rx#: [id number] Oral [id number] 590 Output: Urine 3000 1850 1300 Uretheral (Johnson) 1850 Other: Voiding Method Indwelling Catheter Indwelling Catheter Indwelling Catheter - Labs CBC & Chem 7: 10/06/20 04:06 10/06/20 18:24 Labs: Abnormal Lab Results - Last 24 Hours (Table) 10/06/20 10/06/20 10/06/20 Range/Units 04:06 17:13 20:10 POC Glucose (mg/dL) 129 H 143 H (75-99) mg/dL Iron 13 L (50-170) ug/dL % Saturation 4.71 L (12.00-45.00) 10/07/20 Range/Units 11:29 POC Glucose (mg/dL) 155 H (75-99) mg/dL Iron (50-170) ug/dL % Saturation (12.00-45.00)
[2020-10-07 14:52] LABS: Basophils # (A) 0.05 X 10*3/uL (0.00-0.10); Basophils % (A) 1.2 %; Eosinophils # (A) 0.29 X 10*3/uL (0.04-0.35); Eosinophils % (A) 6.8 %; HCT 36.3 % (37.2-46.3); HGB 10.3 g/dL (12.0-15.0); Lymphocytes # (A) 0.52 X 10*3/uL (0.90-5.00); Lymphocytes % (A) 12.2 %; MCH 21.6 pg (27.0-32.0); MCHC 28.4 g/dL (32.0-37.0); MCV 76.1 fL (80.0-97.0); Mean Platelet Volume 9.9 fL (9.5-12.2); Monocytes # (A) 0.57 X 10*3/uL (0.20-1.00); Monocytes % (A) 13.3 %; Neutrophils # (A) 2.82 X 10*3/uL (1.80-7.70); Platelet Count 192 X 10*3/uL (140-440); RBC 4.77 X 10*6/uL (4.10-5.20); RDW 19.7 % (11.5-14.5); WBC 4.27 X 10*3/uL (4.50-10.00)
[2020-10-07 14:56] LABS: Albumin 3.3 g/dL (3.80-4.90); Albumin/Globulin Ratio 1.38 (1.60-3.17); Anion Gap 10.3 mmol/L (4.00-12.00); BUN/Creat Ratio 14.74 Ratio (12.00-20.00); Calcium 7.8 mg/dL (8.7-10.3); Carbon Dioxide 28.7 mmol/L (21.6-31.8); Globulin 2.4 g/dL (1.6-3.3); Magnesium 1.8 mg/dL (1.5-2.4); Potassium 3.3 mmol/L (3.5-5.5); Total Bilirubin 0.8 mg/dL (0.3-1.2); Total Protein 5.7 g/dL (6.2-8.2)
--- NOTE | 2020-10-07 15:15 | P.PN ---
Subjective Progress Note Date: 10/07/20 Principal diagnosis: Acute exacerbation of diastolic CHF, shortness of breath, lymphedema 75-year-old female who presents to the emergency department on September 30 at 1532. She comes in complaining of fluid retention, particularly in her lower extremities and upper extremities. In addition, the patient does complain of increasing shortness of breath. She denies any chest pain or chest discomfort. There are no fever or chills. She denies any cough or sputum production. The patient has a history of CVA, diabetes mellitus, fibromyalgia, DJD, pneumonia, chronic dry skin, stress urinary incontinence, hiatal hernia, previous pacemaker insertion, and previous heart catheterization. The patient states that her legs are very heavy for the edema, that she cannot even stand up. She feels very weak and fatigued. The shortness of breath is mild in severity. White count is 4.5, hemoglobin 10.8, hematocrit 36.3, and platelet count 166,000. PT 12.6, INR 1.2, PTT 26.7, sodium 138, potassium 3.9, chlorides 104, CO2 24, anion gap 10, BUN 17, creatinine 1.38 and TSH 6.530. Coronavirus testing was negative On 10/02/2020 patient seen in follow-up on medical surgical she is mildly short of breath, at rest, but no acute distress, room air pulse ox is 90-93%, afebrile, she has quite significant generalized edema especially involving bilateral lower extremities. Nephrology is following, patient is currently on Zaroxolyn, Lasix infusion at 5 mg per hour, and she is in -250 ML fluid balance over the last 24 hours, however her net fluid balance is difficult to estimate. Is on 1500 mL fluid restriction, today's labs have been reviewed, showing sodium of 138, potassium is 4.3, chloride is 109. She is complaining of some nausea, she has a emesis basin in her lap. CT abdomen and pelvis was initially ordered, however is on hold right now. Cardiac was reviewed showing EF 55-60%, moderate concentric LVH. Moderate to severe aortic stenosis, severe pulmonary hyper tension, with PA systolic of 89.8 mmHg, and dilation of the inferior vena cava right atrial pressure of greater than 20 mm of mercury. On 10/07/2020 patient seen in follow-up on medical floor. She is awake and alert, in no acute distress, currently up in the recliner, her Lasix infusion was changed over to IV Lasix 40 mg every 8 hours by nephrology, patient is in negative fluid balance, -3.4 L over the last 24 hours, lower extremity edema is improving, she is breathing easier, she is on room air. Lung sounds are clear, no rhonchi or wheezing. Continues on Rocephin for urinary tract infection, there are some low temperatures recorded for this patient looks like these were axillary temperatures. Clinically patient looked quite comfortable, no altered mentation, she is sitting up in the recliner, answering questions appropriately, does not appear to be in any acute distress, lower extremities were Zenon wrapped Objective - Vital Signs Vital signs: Vital Signs Temp 95.8 F L 10/07/20 13:34 Pulse 63 10/07/20 13:36 Resp 18 10/07/20 13:36 BP 106/58 10/07/20 13:34 Pulse Ox 97 10/07/20 13:34 Intake & Output 10/06/20 10/07/20 10/07/20 18:59 06:59 18:59 Intake Total 680 790 440 Output Total 3000 1850 1300 Balance -2320 -1060 -860 Weight 101 kg Intake: Intake, IV Titration 100 200 Amount Furosemide 100 mg In 100 Sodium Chloride 0.9% 90 ml @ 5 MG/HR 5 mls/hr IV .Q20H [facility] Rx#:[id number] Magnesium Sulfate-D5w Pmx 200 1 gm In Dextrose/Water 1 100ml.bag @ 100 mls/hr IVPB Q1H [facility] Rx#: [id number] Oral 580 590 440 Output: Urine 3000 1850 1300 Uretheral (Johnson) 1850 Other: Voiding Method Indwelling Catheter Indwelling Catheter Indwelling Catheter - Exam GENERAL EXAM: Alert, very pleasant, 75-year-old obese white female, resting in bed, on room air, with pulse ox of 97%, denies any shortness of breath, appears to be quite comfortable, HEAD: Normocephalic/atraumatic. EYES: Normal reaction of pupils, equal size. Conjunctiva pink, sclera white. NOSE: Clear with pink turbinates. THROAT: No erythema or exudates. NECK: No masses, no JVD, no thyroid enlargement, no adenopathy. CHEST: No chest wall deformity. Symmetrical expansion. LUNGS: Equal air entry with no crackles, wheeze, rhonchi or dullness. CVS: Regular rate and rhythm, normal S1 and S2, no gallops, pansystolic murmur present throughout the precordium, no rubs ABDOMEN: Soft, nontender. No hepatosplenomegaly, normal bowel sounds, no guarding or rigidity. EXTREMITIES: No clubbing, lymphedema of lower extremities, both legs Zenon wrapped, and edema seems to be improving no cyanosis, 2+ pulses and upper and lower extremities. MUSCULOSKELETAL: Muscle strength and tone normal. SPINE: No scoliosis or deformity SKIN: Dry scaly skin on bilateral lower extremities CENTRAL NERVOUS SYSTEM: Alert and oriented -3. No focal deficits, tone is normal in all 4 extremities. PSYCHIATRIC: Alert and oriented -3. Appropriate affect. Intact judgment and insight. - Labs CBC & Chem 7: 10/07/20 08:26 10/07/20 08:26 Labs: Abnormal Lab Results - Last 24 Hours (Table) 10/06/20 10/06/20 10/06/20 Range/Units 04:06 17:13 20:10 WBC (4.50-10.00) X 10*3/uL Hgb (12.0-15.0) g/dL Hct (37.2-46.3) % MCV (80.0-97.0) fL MCH (27.0-32.0) pg MCHC (32.0-37.0) g/dL RDW (11.5-14.5) % Absolute Nucleated RBC (0.00-0.00) X 10*3/uL Lymphocytes # (0.90-5.00) X 10*3/uL NRBC/100 WBC Diff (0.0-0.0) /100 WBCS Potassium (3.5-5.5) mmol/L BUN (9.0-27.0) mg/dL Creatinine (0.6-1.5) mg/dL Est GFR (CKD-EPI)AfAm (60.0-200.0) Est GFR (CKD-EPI)NonAf (60.0-200.0) POC Glucose (mg/dL) 129 H 143 H (75-99) mg/dL Calcium (8.7-10.3) mg/dL Iron 13 L (50-170) ug/dL % Saturation 4.71 L (12.00-45.00) AST (13-35) U/L ALT (8-44) U/L Alkaline Phosphatase (41-126) U/L Total Protein (6.2-8.2) g/dL Albumin (3.80-4.90) g/dL Albumin/Globulin Ratio (1.60-3.17) g/dL 10/07/20 10/07/20 10/07/20 Range/Units 08:26 08:26 11:29 WBC 4.27 L (4.50-10.00) X 10*3/uL Hgb 10.3 L (12.0-15.0) g/dL Hct 36.3 L (37.2-46.3) % MCV 76.1 L (80.0-97.0) fL MCH 21.6 L (27.0-32.0) pg MCHC 28.4 L (32.0-37.0) g/dL RDW 19.7 H (11.5-14.5) % Absolute Nucleated RBC 0.07 H (0.00-0.00) X 10*3/uL Lymphocytes # 0.52 L (0.90-5.00) X 10*3/uL NRBC/100 WBC Diff 1.6 H (0.0-0.0) /100 WBCS Potassium 3.3 L (3.5-5.5) mmol/L BUN 28.0 H (9.0-27.0) mg/dL Creatinine 1.9 H (0.6-1.5) mg/dL Est GFR (CKD-EPI)AfAm 29.0 L (60.0-200.0) Est GFR (CKD-EPI)NonAf 25.0 L (60.0-200.0) POC Glucose (mg/dL) 155 H (75-99) mg/dL Calcium 7.8 L (8.7-10.3) mg/dL Iron (50-170) ug/dL % Saturation (12.00-45.00) AST 60 H (13-35) U/L ALT 55 H (8-44) U/L Alkaline Phosphatase 169 H (41-126) U/L Total Protein 5.7 L (6.2-8.2) g/dL Albumin 3.30 L (3.80-4.90) g/dL Albumin/Globulin Ratio 1.38 L (1.60-3.17) g/dL Assessment and Plan Plan: Acute on chronic diastolic congestive heart failure. Diffuse body edema and anasarca, which quickly to the lower extremities. Chronic venous stasis and hyperpigmentation of the lower extremities, secondary to venous incompetence. Obesity. History of subaortic web and outflow track obstruction. History of chronic atrial fibrillation. Severe pulmonary hypertension. History of CVA. History of diabetes mellitus. History of fibromyalgia. History of hiatal hernia. Stress urinary incontinence. History of osteoarthritis. Chronic dry skin. Plan: Diuretics per nephrology recommendations, and patient is breathing easier, edema is improving, she is maintaining negative fluid balance. Continue monitoring electrolytes and renal profile. Follow-up chest x-ray has been reviewed showing improved aeration. We'll continue to follow I performed a history & physical examination of the patient and discussed their management with my nurse practitioner, Imelda Navarro. I reviewed the nurse practitioner's note and agree with the documented findings and plan of care. Lung sounds are positive for diminished breath sounds The findings and the impression was discussed with the patient. I attest to the documentation by the nurse practitioner. Time with Patient: Less than 30
--- NOTE | 2020-10-07 15:27 | PN ---
PROGRESS NOTE Patient is seen for followup for acute kidney injury, volume overload. The patient is currently being diuresed. She was maintained on Lasix drip, which was discontinued and switched to IV push Lasix. Overall, patient states she is feeling better. Her weight is back up to 101. I am not sure if this is accurate. [id number]-[id number] urine output is documented at 4.8 L. On examination today, blood pressure was 106/58, heart rate 63 per minute. Patient is afebrile. EXAMINATION OF THE HEART: S1 and S2. EXAMINATION OF LUNGS: Bilateral breath sounds are heard. Decreased breath sounds at bases. ABDOMEN: Soft, morbidly obese. Examination of lower extremities shows chronic edema, chronic skin changes. Legs are wrapped. BUCKLE GLUER exam is grossly intact. Labs from today show hemoglobin of 10.3. BMP is pending. ASSESSMENT: 1. Acute kidney injury, mostly cardiorenal. Renal function has been stable, with creatinine staying at about 2.2. I do not see labs from today. It looks like it has been ordered but currently pending. 2. Hypokalemia secondary to diuretics, status post replacement. 3. Congestive heart failure, acute on top of chronic, mostly diastolic, ejection fraction 55% to 60%. 4. Moderately enlarged left atrium. 5. Moderate to severe aortic stenosis. PLAN: Follow up on labs from today. May continue with IV Lasix. Possible discharge in the next 24 to 48 hours. Check chest x-ray. MMODL / IJN: [id number] /
--- NOTE | 2020-10-07 16:06 | XR ---
EXAMINATION TYPE: XR chest 1V DATE OF EXAM: 10/07/2020 COMPARISON: 10/05/2020 HISTORY: 75-year-old female CHF TECHNIQUE: Single frontal view of the chest is obtained. FINDINGS: Left anterior chest wall pacemaker generator with right atrial and ventricular leads. Heart is mildly enlarged. Perihilar airspace opacities and diffuse interstitial density. Aeration shows some improve ment from prior particularly throughout the right lung. Suspected trace right pleural effusion. IMPRESSION: Cardiomegaly with residual mild interstitial pulmonary edema. Aeration shows improvement from particularly on the right. Trace right effusion.
[2020-10-07 17:01] LABS: Glucose,Whole Blood 114 mg/dL (75-99)
[2020-10-07] MEDS ORDERED: Magnesium Replacement Protocol 1 EACH MISC MISCELLANE PRN (17:21)
[2020-10-07] MEDS: MAGNESIUM SULFATE-D5W PMX 1 GM in DEXTROSE/WATER 1 100ML.BAG IVPB SCH ×2 (18:21→20:13)
[2020-10-07] MEDS: POTASSIUM BICARBONATE/CIT AC 20 MEQ TABLET.EFF NG-TUBE SCH ×2 (18:23→19:30)
[2020-10-07 20:14] LABS: Glucose,Whole Blood 129 mg/dL (75-99)
[2020-10-08] MEDS: ONDANSETRON 4 MG/2 ML VIAL IVP PRN ×2 (05:01→21:00)
[2020-10-08] MEDS: LEVOTHYROXINE 25 MCG TAB PO SCH (05:55)
[2020-10-08 07:00] LABS: Glucose,Whole Blood 121 mg/dL (75-99)
[2020-10-08] MEDS: PANTOPRAZOLE 40 MG TABLET PO SCH (09:43)
[2020-10-08] MEDS: APIXABAN 5 MG TAB PO SCH ×2 (09:43→22:52)
[2020-10-08] MEDS: traMADol 50 MG TAB PO PRN (09:43)
[2020-10-08] MEDS: MIDODRINE 5 MG TAB PO SCH ×3 (09:44→22:52)
[2020-10-08] MEDS: FUROSEMIDE 10 MG/ML 4 ML VIAL IV SCH ×2 (09:44→16:49)
[2020-10-08] MEDS: GABAPENTIN 100 MG CAP PO SCH ×3 (09:44→22:52)
[2020-10-08] MEDS: OXYBUTYNIN XL 5 MG TAB.ER.24 PO SCH (09:45)
[2020-10-08] MEDS: METOPROLOL TARTRATE 12.5 MG TAB PO SCH ×2 (09:45→22:52)
[2020-10-08] MEDS: PETROLAT,WHITE/LAN/8-HYDROXYQU 227 GM OINT TOPICAL SCH (09:53)
--- NOTE | 2020-10-08 10:11 | CDI ---
Documentation Clarification Form Date: 10/08/2020 09:51:53 AM From: Valencia Ascencio CCS, CCDS Admit Date: 10/02/2020 02:32:00 PM Patient Name: Livier Kilgore Visit Number: [id number] Discharge Date: ATTENTION: The Clinical Documentation Specialists (CDI) and [facility] Coding Staff appreciate your assistance in clarifying documentation. Please respond to the clarification below the line at the bottom and electronically sign. The CDI & [facility] Coding staff will review the response and follow-up if needed. Please note: Queries are made part of the Legal Health Record. If you have any questions, please contact the author of this message via ITS. Dr. Kamaljit Krause: Anemia is documented in the 09/30 ED Note, the 10/01 History & Physical, the 10/01 Vascular Surgeon, Cardiology, Nephrology, Wound Care and Pulmonary Consults in the patient's Past Medical History without further specification. History/Risk Factors per the 10/01 Patient's Past Medical History: Anemia, Hypertension, Atrial Fibrillation, DM, CVA/TIA, CKD (Stage 3a per Nephrology Consult), Pneumonia, Osteoarthritis, Fibromyalgia, Gout and Skin Cancer. Clinical indicators: Presented to the ED on 09/30 with SOB and bilateral arm swelling, some vomiting, increased diffuse edema, fatigued. Admitted with CHF (Acute on Chronic Diastolic per Cardiology Consult). VS 10/02: T 97.5, P 88, R 17, BP 96/65, PO 90 RA. BMI: 40.1 Hemoglobin: 09/30 10.8, 10/02 10.7, 10/03 9.8, 10/04 10.2, 10/05 10.8, 10/06 9.8, 10/07 10.3 Hematocrit: 09/30 36.3, 10/02 35.5, 10/03 35.1, 10/04 36.8, 10/05 36.1, 10/06 33.8, 10/07 36.3 LAB 10/01: Iron 63, TIBC 316, % Saturation 19.94 10/02: BUN 21, Creatinine 1.65, Total Protein 6.0, Albumin 2.6, Globulin 3.4, Albumin/Globulin Ration 0.8 Treatment: 2/3: Midline catheter, Telemetry, Heart Failure Protocol, Johnson Catheter IV Lasix, po Aspirin, po Ultram, po KDur, po Eliquis. 10/03: IV Albumin 50 mls @ 50 mls/hr BID. 10/05: IV Rocephin. 10/06: IV Mag Sulfate. In order to capture the severity of condition, please clarify the type of anemia and etiology if known:. o Chronic blood loss anemia o Iron deficiency anemia o Hemolytic anemia o Drug induced anemia o Nutritional anemia o Anemia of chronic kidney disease o Unable to determine o Other, please specify (Last Form Revision: October 2019) anemia of chronic kidney disease MTDD
[2020-10-08 10:30] LABS: Basophils # (A) 0.05 X 10*3/uL (0.00-0.10); Eosinophils # (A) 0.26 X 10*3/uL (0.04-0.35); Eosinophils % (A) 5.3 %; HCT 35.8 % (37.2-46.3); HGB 10.2 g/dL (12.0-15.0); Lymphocytes # (A) 0.41 X 10*3/uL (0.90-5.00); Lymphocytes % (A) 8.4 %; MCH 21.7 pg (27.0-32.0); MCHC 28.5 g/dL (32.0-37.0); MCV 76.2 fL (80.0-97.0); Mean Platelet Volume 9.8 fL (9.5-12.2); Monocytes # (A) 0.58 X 10*3/uL (0.20-1.00); Monocytes % (A) 11.8 %; Neutrophils # (A) 3.59 X 10*3/uL (1.80-7.70); Neutrophils % (A) 73.1 %; Platelet Count 203 X 10*3/uL (140-440); RDW 19.7 % (11.5-14.5); WBC 4.91 X 10*3/uL (4.50-10.00)
[2020-10-08 11:30] LABS: Glucose,Whole Blood 141 mg/dL (75-99)
[2020-10-08 11:41] LABS: Albumin 3.5 g/dL (3.80-4.90); Albumin/Globulin Ratio 1.4 (1.60-3.17); Anion Gap 10.4 mmol/L (4.00-12.00); BUN/Creat Ratio 15.26 Ratio (12.00-20.00); Calcium 8.4 mg/dL (8.7-10.3); Carbon Dioxide 31.6 mmol/L (21.6-31.8); Globulin 2.5 g/dL (1.6-3.3); Potassium 3.3 mmol/L (3.5-5.5); Total Bilirubin 0.9 mg/dL (0.3-1.2)
[2020-10-08] MEDS ORDERED: Potassium Replacement Protocol 1 EACH MISC MISCELLANE PRN (12:07)
[2020-10-08] MEDS: POTASSIUM BICARBONATE/CIT AC 20 MEQ TABLET.EFF NG-TUBE SCH ×2 (13:14→13:53)
--- NOTE | 2020-10-08 14:36 | P.PN ---
Subjective This is a pleasant 75-year-old female past medical history significant for chronic persistent atrial fibrillation on Eliquis, chronic diastolic dysfunction, permanent pacemaker implantation, pulmonary hypertension, anemia and subaortic web with outflow tract obstruction. She follows in the office with Dr. Ruby. She is seen and examined sitting up in the chair in no acute distress. She denies chest pain, shortness of breath, dizziness or palpitations. She complains of ongoing lower extremity pain. She is maintained on lasix IV 40 mg TID per nephrology. Daily labs are pending. Blood pressure 106/58 heart rate 63 afebrile and maintaining oxygen saturation on room air. 24- hr urine output 4850 cc. 10/08/2020 Patient is seen and examined sitting up in the recliner in no acute distress. She denies symptoms of chest pain, shortness of breath, dizziness or palpitations. Blood pressure 94/55 heart rate 61 afebrile maintaining oxygen saturation on room air. Laboratory data reviewed, WBC 4.9, hemoglobin 10.2, platelets 203, sodium 138, potassium 3.3 and creatinine 1.9. GENERAL: Well-appearing, well-nourished and in no acute distress. Morbidly obese. NECK: Supple without JVD or thyromegaly. LUNGS: Breath sounds clear to auscultation bilaterally. Respiration equal and unlabored. No wheezes, rales or rhonchi. Difficult to auscultate clearly due to body habitus, no rales appreciated. HEART: Irregular rate and rhythm with systolic ejection murmur at the base, no rubs or gallops. S1 and S2 heard. EXTREMITIES: Chronic edema with chronic stasis changes noted. BECKY wraps in place. No clubbing or cyanosis. Peripheral pulses intact. ASSESSMENT Acute on chronic diastolic heart failure Chronic persistent atrial fibrillation History of hypertrophic cardiomyopathy Pulmonary hypertension Chronic venous stasis Diabetes mellitus Aortic stenosis, moderate Hypertrophic cardiomyopathy with BERKLEY, gradient 24 mmHg Mitral regurgitation Tricuspid regurgitation Pulmonary hypertension PLAN Continue current medical regimen. Replace potassium per protocol. Diuretic management per nephrology. Follow-up with Dr. Ruby upon discharge. We will follow along as needed. Nurse Practitioner note has been reviewed, I agree with a documented findings and plan of care. Patient was seen and examined. Objective - Vital Signs Vital signs: Vital Signs Temp 97.4 F L 10/08/20 12:44 Pulse 61 02/11/21 12:44 Resp 17 10/08/20 12:44 BP 94/55 10/08/20 12:44 Pulse Ox 95 10/08/20 12:44 Intake & Output 10/07/20 10/08/20 10/08/20 18:59 06:59 18:59 Intake Total 662 1020 270 Output Total 1999 2099 Balance -2158 1080 270 Weight 87 kg Intake: Intake, IV Titration 50 Amount cefTRIAXone 1 gm In 50 Sodium Chloride 0.9% 50 ml @ 100 mls/hr IVPB Q24HR [facility] Rx#:[id number] Oral 662 1020 220 Output: Urine 1999 1999 Emesis 100 Other: Voiding Method Indwelling Catheter Indwelling Catheter Indwelling Catheter - Labs CBC & Chem 7: 10/08/20 07:27 10/08/20 07:27 Labs: Abnormal Lab Results - Last 24 Hours (Table) 10/07/20 10/07/20 10/07/20 Range/Units 08:26 08:26 16:55 WBC 4.27 L (4.50-10.00) X 10*3/uL Hgb 10.3 L (12.0-15.0) g/dL Hct 36.3 L (37.2-46.3) % MCV 76.1 L (80.0-97.0) fL MCH 21.6 L (27.0-32.0) pg MCHC 28.4 L (32.0-37.0) g/dL RDW 19.7 H (11.5-14.5) % Absolute Nucleated RBC 0.07 H (0.00-0.00) X 10*3/uL Lymphocytes # 0.52 L (0.90-5.00) X 10*3/uL NRBC/100 WBC Diff 1.6 H (0.0-0.0) /100 WBCS Potassium 3.3 L (3.5-5.5) mmol/L BUN 28.0 H (9.0-27.0) mg/dL Creatinine 1.9 H (0.6-1.5) mg/dL Est GFR (CKD-EPI)AfAm 29.0 L (60.0-200.0) Est GFR (CKD-EPI)NonAf 25.0 L (60.0-200.0) POC Glucose (mg/dL) 114 H (75-99) mg/dL Calcium 7.8 L (8.7-10.3) mg/dL AST 60 H (13-35) U/L ALT 55 H (8-44) U/L Alkaline Phosphatase 169 H (41-126) U/L Total Protein 5.7 L (6.2-8.2) g/dL Albumin 3.30 L (3.80-4.90) g/dL Albumin/Globulin Ratio 1.38 L (1.60-3.17) g/dL 10/07/20 10/08/20 10/08/20 Range/Units 20:13 06:57 07:27 WBC (4.50-10.00) X 10*3/uL Hgb 10.2 L (12.0-15.0) g/dL Hct 35.8 L (37.2-46.3) % MCV 76.2 L (80.0-97.0) fL MCH 21.7 L (27.0-32.0) pg MCHC 28.5 L (32.0-37.0) g/dL RDW 19.7 H (11.5-14.5) % Absolute Nucleated RBC 0.06 H (0.00-0.00) X 10*3/uL Lymphocytes # 0.41 L (0.90-5.00) X 10*3/uL NRBC/100 WBC Diff 1.2 H (0.0-0.0) /100 WBCS Potassium (3.5-5.5) mmol/L BUN (9.0-27.0) mg/dL Creatinine (0.6-1.5) mg/dL Est GFR (CKD-EPI)AfAm (60.0-200.0) Est GFR (CKD-EPI)NonAf (60.0-200.0) POC Glucose (mg/dL) 129 H 121 H (75-99) mg/dL Calcium (8.7-10.3) mg/dL AST (13-35) U/L ALT (8-44) U/L Alkaline Phosphatase (41-126) U/L Total Protein (6.2-8.2) g/dL Albumin (3.80-4.90) g/dL Albumin/Globulin Ratio (1.60-3.17) g/dL 10/08/20 10/08/20 Range/Units 07:27 11:28 WBC (4.50-10.00) X 10*3/uL Hgb (12.0-15.0) g/dL Hct (37.2-46.3) % MCV (80.0-97.0) fL MCH (27.0-32.0) pg MCHC (32.0-37.0) g/dL RDW (11.5-14.5) % Absolute Nucleated RBC (0.00-0.00) X 10*3/uL Lymphocytes # (0.90-5.00) X 10*3/uL NRBC/100 WBC Diff (0.0-0.0) /100 WBCS Potassium 3.3 L (3.5-5.5) mmol/L BUN 29.0 H (9.0-27.0) mg/dL Creatinine 1.9 H (0.6-1.5) mg/dL Est GFR (CKD-EPI)AfAm 29.0 L (60.0-200.0) Est GFR (CKD-EPI)NonAf 25.0 L (60.0-200.0) POC Glucose (mg/dL) 141 H (75-99) mg/dL Calcium 8.4 L (8.7-10.3) mg/dL AST 44 H (13-35) U/L ALT 48 H (8-44) U/L Alkaline Phosphatase 176 H (41-126) U/L Total Protein 6.0 L (6.2-8.2) g/dL Albumin 3.50 L (3.80-4.90) g/dL Albumin/Globulin Ratio 1.40 L (1.60-3.17) g/dL
--- NOTE | 2020-10-08 14:49 | PN ---
PROGRESS NOTE The patient is seen for followup for acute kidney injury and volume overload. She has been maintained on IV Lasix. Serum creatinine has decreased and staying at about 1.9 mg/dL. The patient's weight is down further to about 87 kg. I am not sure if this is accurate. However, she did have about 4.1 L of urine output over the last 24 hours. PHYSICAL EXAMINATION: On examination today, patient is comfortable. Blood pressure is staying on the lower side, 94/55, heart rate 61 per minute. She is afebrile. EXAMINATION OF THE HEART: S1, S2. EXAMINATION OF THE LUNGS: Bilateral breath sounds are heard. Abdomen is soft, nontender and obese. Examination of lower extremities shows edema, which is chronic bilaterally and currently improved. CYCLE REPAIRER exam is grossly intact. LABS: Labs show serum creatinine down to 1.9 mg/dL today. Potassium was 3.3, sodium 138, BUN 29, hemoglobin of 10.2 g/dL. ASSESSMENT: 1. Acute kidney injury, cardiorenal, currently stable and somewhat improved over the last 3-4 days. Patient is maintained on IV Lasix. We can switch her to oral diuretics starting tomorrow. 2. Hypokalemia secondary to diuresis, currently being replaced. 3. Chronic lower extremity edema. 4. Congestive heart failure acute on top of chronic, mostly diastolic. 5. Moderate to severe aortic stenosis. PLAN: Switch to oral Demadex starting tomorrow and I will discontinue the Lasix after her last dose today. MMODL / IJN: [id number] /
--- NOTE | 2020-10-08 16:06 | P.PN ---
Subjective Progress Note Date: 10/08/20 75-year-old female who presents to the emergency department on September 30 at 1532. She comes in complaining of fluid retention, particularly in her lower extremities and upper extremities. In addition, the patient does complain of increasing shortness of breath. She denies any chest pain or chest discomfort. There are no fever or chills. She denies any cough or sputum production. The patient has a history of CVA, diabetes mellitus, fibromyalgia, DJD, pneumonia, chronic dry skin, stress urinary incontinence, hiatal hernia, previous pacemaker insertion, and previous heart catheterization. The patient states that her legs are very heavy for the edema, that she cannot even stand up. She feels very weak and fatigued. The shortness of breath is mild in severity. White count is 4.5, hemoglobin 10.8, hematocrit 36.3, and platelet count 166,000. PT 12.6, INR 1.2, PTT 26.7, sodium 138, potassium 3.9, chlorides 104, CO2 24, anion gap 10, BUN 17, creatinine 1.38 and TSH 6.530. Coronavirus testing was negative On 10/02/2020 patient seen in follow-up on medical surgical she is mildly short of breath, at rest, but no acute distress, room air pulse ox is 90-93%, afebrile, she has quite significant generalized edema especially involving bilateral lower extremities. Nephrology is following, patient is currently on Zaroxolyn, Lasix infusion at 5 mg per hour, and she is in -250 ML fluid balance over the last 24 hours, however her net fluid balance is difficult to estimate. Is on 1500 mL fluid restriction, today's labs have been reviewed, showing sodium of 138, potassium is 4.3, chloride is 109. She is complaining of some nausea, she has a emesis basin in her lap. CT abdomen and pelvis was initially ordered, however is on hold right now. Cardiac was reviewed showing EF 55-60%, moderate concentric LVH. Moderate to severe aortic stenosis, severe pulmonary hypertension, with PA systolic of 89.8 mmHg, and dilation of the inferior vena cava right atrial pressure of greater than 20 mm of mercury. On 10/07/2020 patient seen in follow-up on medical floor. She is awake and aler t, in no acute distress, currently up in the recliner, her Lasix infusion was changed over to IV Lasix 40 mg every 8 hours by nephrology, patient is in negative fluid balance, -3.4 L over the last 24 hours, lower extremity edema is improving, she is breathing easier, she is on room air. Lung sounds are clear, no rhonchi or wheezing. Continues on Rocephin for urinary tract infection, there are some low temperatures recorded for this patient looks like these were axillary temperatures. Clinically patient looked quite comfortable, no altered mentation, she is sitting up in the recliner, answering questions appropriately, does not appear to be in any acute distress, lower extremities were Zenon wrapped On 10/08/2020 the patient is being seen for a follow-up. She has obvious improvement in the lower extremity edema as the patient has significant amount of edema in the legs bilaterally. She was a Lasix drip at 5 mg an hour and addition to Zaroxolyn. The Lasix that has been discontinued and the patient was switched to IV Lasix 40 mg every 8 hours. The neck fluid balance is -3.3 L over the past 24 hours. The blood work shows a BUN of 29 with a creatinine of 1.9 and these numbers are essentially compatible to yesterday. Rest of the electrodes are normal with exception some hypokalemia and potassium level needs to be replaced. The white cell count is at 4.9. The patient on room air oxygen. The patient denies having any specific complaints. Her lungs are essentially clear for now. Note that the patient is also on Demadex 20 mg daily and the patient is also on long-term medical condition with Eliquis 5 mg by mouth twice a day. Objective - Vital Signs Vital signs: Vital Signs Temp 97.4 F L 10/08/20 12:44 Pulse 61 10/08/20 12:44 Resp 17 10/08/20 12:44 BP 94/55 10/08/20 12:44 Pulse Ox 95 10/08/20 12:44 Intake & Output 10/07/20 10/08/20 10/08/20 18:59 06:59 18:59 Intake Total 662 1020 270 Output Total 1999 3093 1300 Balance -1175 -8902 -2572 Weight 87 kg Intake: Intake, IV Titration 50 Amount cefTRIAXone 1 gm In 50 Sodium Chloride 0.9% 50 ml @ 100 mls/hr IVPB Q24HR [facility] Rx#:[id number] Oral 662 1020 220 Output: Urine 1999 1999 1299 Uretheral (Johnson) 1300 Emesis 100 Other: Voiding Method Indwelling Catheter Indwelling Catheter Indwelling Catheter - Exam GENERAL EXAM: Alert, very pleasant, 75-year-old obese white female, resting in bed, on room air, with pulse ox of 97%, denies any shortness of breath, appears to be quite comfortable, HEAD: Normocephalic/atraumatic. EYES: Normal reaction of pupils, equal size. Conjunctiva pink, sclera white. NOSE: Clear with pink turbinates. THROAT: No erythema or exudates. NECK: No masses, no JVD, no thyroid enlargement, no adenopathy. CHEST: No chest wall deformity. Symmetrical expansion. LUNGS: Equal air entry with no crackles, wheeze, rhonchi or dullness. CVS: Regular rate and rhythm, normal S1 and S2, no gallops, pansystolic murmur present throughout the precordium, no rubs ABDOMEN: Soft, nontender. No hepatosplenomegaly, normal bowel sounds, no guarding or rigidity. EXTREMITIES: No clubbing, lymphedema of lower extremities, both legs Zenon wrapped, and edema seems to be improving no cyanosis, 2+ pulses and upper and lower extremities. MUSCULOSKELETAL: Muscle strength and tone normal. SPINE: No scoliosis or deformity SKIN: Dry scaly skin on bilateral lower extremities CENTRAL NERVOUS SYSTEM: Alert and oriented -3. No focal deficits, tone is normal in all 4 extremities. PSYCHIATRIC: Alert and oriented -3. Appropriate affect. Intact judgment and insight. - Labs CBC & Chem 7: 10/08/20 07:27 10/08/20 07:27 Labs: Abnormal Lab Results - Last 24 Hours (Table) 10/07/20 10/07/20 10/08/20 Range/Units 16:55 20:13 06:57 Hgb (12.0-15.0) g/dL Hct (37.2-46.3) % MCV (80.0-97.0) fL MCH (27.0-32.0) pg MCHC (32.0-37.0) g/dL RDW (11.5-14.5) % Absolute Nucleated RBC (0.00-0.00) X 10*3/uL Lymphocytes # (0.90-5.00) X 10*3/uL NRBC/100 WBC Diff (0.0-0.0) /100 WBCS Potassium (3.5-5.5) mmol/L BUN (9.0-27.0) mg/dL Creatinine (0.6-1.5) mg/dL Est GFR (CKD-EPI)AfAm (60.0-200.0) Est GFR (CKD-EPI)NonAf (60.0-200.0) POC Glucose (mg/dL) 114 H 129 H 121 H (75-99) mg/dL Calcium (8.7-10.3) mg/dL AST (13-35) U/L ALT (8-44) U/L Alkaline Phosphatase (41-126) U/L Total Protein (6.2-8.2) g/dL Albumin (3.80-4.90) g/dL Albumin/Globulin Ratio (1.60-3.17) g/dL 10/08/20 10/08/20 10/08/20 Range/Units 07:27 07:27 11:28 Hgb 10.2 L (12.0-15.0) g/dL Hct 35.8 L (37.2-46.3) % MCV 76.2 L (80.0-97.0) fL MCH 21.7 L (27.0-32.0) pg MCHC 28.5 L (32.0-37.0) g/dL RDW 19.7 H (11.5-14.5) % Absolute Nucleated RBC 0.06 H (0.00-0.00) X 10*3/uL Lymphocytes # 0.41 L (0.90-5.00) X 10*3/uL NRBC/100 WBC Diff 1.2 H (0.0-0.0) /100 WBCS Potassium 3.3 L (3.5-5.5) mmol/L BUN 29.0 H (9.0-27.0) mg/dL Creatinine 1.9 H (0.6-1.5) mg/dL Est GFR (CKD-EPI)AfAm 29.0 L (60.0-200.0) Est GFR (CKD-EPI)NonAf 25.0 L (60.0-200.0) POC Glucose (mg/dL) 141 H (75-99) mg/dL Calcium 8.4 L (8.7-10.3) mg/dL AST 44 H (13-35) U/L ALT 48 H (8-44) U/L Alkaline Phosphatase 176 H (41-126) U/L Total Protein 6.0 L (6.2-8.2) g/dL Albumin 3.50 L (3.80-4.90) g/dL Albumin/Globulin Ratio 1.40 L (1.60-3.17) g/dL Assessment and Plan Plan: Acute on chronic diastolic congestive heart failure. Diffuse body edema and anasarca, which quickly to the lower extremities. Chronic venous stasis and hyperpigmentation of the lower extremities, secondary to venous incompetence. Obesity. History of subaortic web and outflow track obstruction. History of chronic atrial fibrillation. Severe pulmonary hypertension. History of CVA. History of diabetes mellitus. History of fibromyalgia. History of hiatal hernia. Stress urinary incontinence. History of osteoarthritis. Chronic dry skin. Plan The patient is clinically improving. Continue IV Lasix. Continue Demadex. Monitor fluid balance. Monitor electrolytes. Monitor renal function. Replace potassium level. She is currently on room air oxygen. Lower extremity edema is improving and the patient has no major respiratory distress or insufficiency at this point in time. She is on Eliquis for long-term anticoagulation regarding chronic atrial fibrillation. Pulmonary and critical care services we'll sign off I will leave the rest of the management of to medicine.
--- NOTE | 2020-10-08 18:48 | P.PN ---
Subjective Progress Note Date: 10/08/20 Livier Kilgore, is a 75-year-old female, who presented to [facility] emergency room with a chief complaint of worsening shortness of breath and bilateral lower extremity edema she was evaluated in the emergency room vital examination on presentation reveals a temperature of 97.9 pulse 91 respiration 16 and blood pressure 119/75 pulse ox 95% on room air her white blood count was 4.5 hemoglobin 10.9 platelet count 166 BUN was 18 creatinine 1.44 alkaline phosphatase 160 albumin and low at 3.2 TSH elevated at 6.53 coronavirus PCR was negative, chest x-ray revealed evidence of congestive heart failure and pulmonary edema, she was admitted to telemetry floor, cardiology consultation was requested. Patient has been having worsening lower extremity edema over the last few months with evidence of lymphedema, cause is unclear, she also has a known history of hypertension, gout, atrial fibrillation, and chronic kidney disease. On 10/02/2020 patient was seen and examined on the medical floor she is alert and oriented 3 in no apparent distress she is complaining of nausea today otherwise she denies any complaints there is no fever or chills no headache or dizziness no chest pain no shortness of breath no cough no vomiting no abdominal pain no diarrhea no blood in the stools no burning with urination no frequency or urgency no hematuria. Patient is still having significant lower extremity edema, she was started on Lasix drip yesterday however this had to be discontinued due to low blood pressure, she was evaluated today by nephrology again she was started on midodrine for low blood pressure and will be restarted on IV lasix drip. On 10/03/2020 patient was seen and examined on the medical floor she is alert and oriented 3 in no distress she is still complaining of severe bilateral lower extremity swelling otherwise no complaints at this time there is no fever or chills no headache or dizziness no chest pain, no shortness of breath no cough no nausea or vomiting no abdominal pain no diarrhea no blood in the stools no burning with urination no frequency or urgency and no hematuria. Blood pressure is low, she was started on midodrine yesterday she is still maintained on IV Lasix drip. On 10/04/2020 patient is alert and oriented 3 resting comfortably in bed patient remains on Lasix drip. UA positive for leukocyte esterase. Patient started on Rocephin. Urine culture ordered. PT OT consult area patient does live independently. Surgical consult possible placement. Dr. hoffman. consulted for possible inpatient rehab. Nephrology services are following. Weight down from 105.9 kg to 102.3 kg. Johnson catheter is in place. At this time patient denies chest pain or shortness breath. Patient denies nausea vomiting or diarrhea. on 10/05/2020 patient was seen and examined on the medical floor she is alert and oriented 3 in no apparent distress, there is no fever or chills no headache or dizziness no chest pain no shortness of breath no cough no nausea or vomiting no abdominal pain no diarrhea no blood in the stools, Johnson catheter is in place . Patient is maintained on IV Lasix drip, extremity swelling is improving gradually, she is followed by nephrology. On 10/06/2020 patient was seen and examined on the medical floor she is alert and oriented 3 in no apparent distress , she is still complaining of shortness of breath with any activity otherwise she denies any complaints there is no fever or chills no headache or dizziness no chest pain no palpitation no cough no nausea or vomiting no abdominal pain no diarrhea no blood in the stools no burning with urination no frequency or urgency and no hematuria On 10/07/2020. Patient is alert and oriented 3. Patient currently sitting up in chair. Patient remains on IV Lasix. This time patient denies chest pain or shortness of breath. Patient denies nausea vomiting diarrhea. Patient denies any urinary burning or frequency. Social work has been consulted for possible ECF placement upon discharge. On 10/08/2020 patient was seen and examined on the medical floor she is alert and oriented 3 in no apparent distress her shortness of breath and lower extremity edema has improved significantly since admission otherwise she denies any complaints there is no fever or chills no headache or dizziness no chest pain no cough no palpitation no nausea or vomiting no abdominal pain no diarrhea no blood in the stools no burning with urination no frequency or urgency and no hematuria Objective - Vital Signs Vital signs: Vital Signs Temp 97.4 F L 10/08/20 12:44 Pulse 61 10/08/20 12:44 Resp 17 10/08/20 12:44 BP 94/55 10/08/20 12:44 Pulse Ox 95 10/08/20 12:44 Intake & Output 10/07/20 10/08/20 10/08/20 18:59 06:59 18:59 Intake Total 662 1020 270 Output Total 1999 2099 Balance -0322 -1836 270 Weight 87 kg Intake: Intake, IV Titration 50 Amount cefTRIAXone 1 gm In 50 Sodium Chloride 0.9% 50 ml @ 100 mls/hr IVPB Q24HR [facility] Rx#:[id number] Oral 662 1020 220 Output: Urine 1999 1999 Emesis 100 Other: Voiding Method Indwelling Catheter Indwelling Catheter Indwelling Catheter - Exam In general patient is alert and oriented 3 in no apparent distress HEENT head normocephalic and atraumatic Neck is supple no JVD no goiter no lymphadenopathy Chest exam reveals crackles in both lung bases no wheezing Cardiac exam reveals regular heart sounds S1 and S2 no gallops no murmurs Abdomen is soft nontender no organomegaly with normal bowel sounds Extremity exam reveals significant edema and bilateral lower extremities extending up to the thighs and evidence of edema in the upper extremities Neurological examination reveals, no gross focal neurological deficits - Labs CBC & Chem 7: 10/08/20 07:27 10/08/20 07:27 Labs: Abnormal Lab Results - Last 24 Hours (Table) 10/07/20 10/07/20 10/07/20 Range/Units 08:26 08:26 16:55 WBC 4.27 L (4.50-10.00) X 10*3/uL Hgb 10.3 L (12.0-15.0) g/dL Hct 36.3 L (37.2-46.3) % MCV 76.1 L (80.0-97.0) fL MCH 21.6 L (27.0-32.0) pg MCHC 28.4 L (32.0-37.0) g/dL RDW 19.7 H (11.5-14.5) % Absolute Nucleated RBC 0.07 H (0.00-0.00) X 10*3/uL Lymphocytes # 0.52 L (0.90-5.00) X 10*3/uL NRBC/100 WBC Diff 1.6 H (0.0-0.0) /100 WBCS Potassium 3.3 L (3.5-5.5) mmol/L BUN 28.0 H (9.0-27.0) mg/dL Creatinine 1.9 H (0.6-1.5) mg/dL Est GFR (CKD-EPI)AfAm 29.0 L (60.0-200.0) Est GFR (CKD-EPI)NonAf 25.0 L (60.0-200.0) POC Glucose (mg/dL) 114 H (75-99) mg/dL Calcium 7.8 L (8.7-10.3) mg/dL AST 60 H (13-35) U/L ALT 55 H (8-44) U/L Alkaline Phosphatase 169 H (41-126) U/L Total Protein 5.7 L (6.2-8.2) g/dL Albumin 3.30 L (3.80-4.90) g/dL Albumin/Globulin Ratio 1.38 L (1.60-3.17) g/dL 10/07/20 10/08/20 10/08/20 Range/Units 20:13 06:57 07:27 WBC (4.50-10.00) X 10*3/uL Hgb 10.2 L (12.0-15.0) g/dL Hct 35.8 L (37.2-46.3) % MCV 76.2 L (80.0-97.0) fL MCH 21.7 L (27.0-32.0) pg MCHC 28.5 L (32.0-37.0) g/dL RDW 19.7 H (11.5-14.5) % Absolute Nucleated RBC 0.06 H (0.00-0.00) X 10*3/uL Lymphocytes # 0.41 L (0.90-5.00) X 10*3/uL NRBC/100 WBC Diff 1.2 H (0.0-0.0) /100 WBCS Potassium (3.5-5.5) mmol/L BUN (9.0-27.0) mg/dL Creatinine (0.6-1.5) mg/dL Est GFR (CKD-EPI)AfAm (60.0-200.0) Est GFR (CKD-EPI)NonAf (60.0-200.0) POC Glucose (mg/dL) 129 H 121 H (75-99) mg/dL Calcium (8.7-10.3) mg/dL AST (13-35) U/L ALT (8-44) U/L Alkaline Phosphatase (41-126) U/L Total Protein (6.2-8.2) g/dL Albumin (3.80-4.90) g/dL Albumin/Globulin Ratio (1.60-3.17) g/dL 10/08/20 10/08/20 Range/Units 07:27 11:28 WBC (4.50-10.00) X 10*3/uL Hgb (12.0-15.0) g/dL Hct (37.2-46.3) % MCV (80.0-97.0) fL MCH (27.0-32.0) pg MCHC (32.0-37.0) g/dL RDW (11.5-14.5) % Absolute Nucleated RBC (0.00-0.00) X 10*3/uL Lymphocytes # (0.90-5.00) X 10*3/uL NRBC/100 WBC Diff (0.0-0.0) /100 WBCS Potassium 3.3 L (3.5-5.5) mmol/L BUN 29.0 H (9.0-27.0) mg/dL Creatinine 1.9 H (0.6-1.5) mg/dL Est GFR (CKD-EPI)AfAm 29.0 L (60.0-200.0) Est GFR (CKD-EPI)NonAf 25.0 L (60.0-200.0) POC Glucose (mg/dL) 141 H (75-99) mg/dL Calcium 8.4 L (8.7-10.3) mg/dL AST 44 H (13-35) U/L ALT 48 H (8-44) U/L Alkaline Phosphatase 176 H (41-126) U/L Total Protein 6.0 L (6.2-8.2) g/dL Albumin 3.50 L (3.80-4.90) g/dL Albumin/Globulin Ratio 1.40 L (1.60-3.17) g/dL Assessment and Plan Plan: 1. Acute exacerbation of congestive heart failure will check echocardiogram and consult cardiology, patient started on Lasix. 2-D echo completed showing 55- 60%. Patient has been transitioned Lasix drip to IV Lasix 2. Severe and worsening lymphedema cause is unclear Will consult vascular surgery. evaluated by vascular surgery no acute indications for any vascular surgical intervention 3. Chronic kidney disease, will check kidney ultrasound and monitor kidney function daily 4. Underlying history of atrial fibrillation patient is maintained on Eliquis for stroke prevention, heart rate is well-controlled 5. Underlying history of hypertension 6. Underlying history of gout, will check uric acid level 7. [id number] diabetes mellitus millimeters so far maintained on diet only, will check hemoglobin A1c 8. Evidence of hypothyroidism with elevated TSH on presentation will start patient on Synthroid 25 g daily 9. Urinary tract infection. Patient started on Rocephin. Urine culture ord ered. At this time patient is admitted to medical floor Consultation for cardiology, pulmonary, and vascular surgery initiated Will continue with IV Lasix and monitor kidney function closely For DVT prophylaxis patient is on Eliquis GI prophylaxis Will add Protonix Patient will likely need placement upon discharge. PT OT consulted Social work consulted for possible ECF placement upon discharge
[2020-10-08 20:45] LABS: Glucose,Whole Blood 155 mg/dL (75-99)
[2020-10-09] MEDS: LEVOTHYROXINE 25 MCG TAB PO SCH (05:50)
[2020-10-09 07:23] LABS: Glucose,Whole Blood 94 mg/dL (75-99)
[2020-10-09 08:28] VITALS: BP 113/64; TEMP 97.9
[2020-10-09] MEDS: METOPROLOL TARTRATE 12.5 MG TAB PO SCH (08:56)
[2020-10-09] MEDS: APIXABAN 5 MG TAB PO SCH (08:56)
[2020-10-09] MEDS: MIDODRINE 5 MG TAB PO SCH (08:56)
[2020-10-09] MEDS: OXYBUTYNIN XL 5 MG TAB.ER.24 PO SCH (08:57)
[2020-10-09] MEDS: GABAPENTIN 100 MG CAP PO SCH (08:57)
[2020-10-09] MEDS: PANTOPRAZOLE 40 MG TABLET PO SCH (08:58)
[2020-10-09] MEDS ORDERED: TORSEMIDE 20 MG TAB PO SCH (09:00)
[2020-10-09] MEDS: PETROLAT,WHITE/LAN/8-HYDROXYQU 227 GM OINT TOPICAL SCH (09:59)
[2020-10-09 11:08] VITALS: PULSE 56; RESP 14
[2020-10-09 11:41] LABS: Glucose,Whole Blood 134 mg/dL (75-99)
--- NOTE | 2020-10-09 13:11 | P.DS ---
Providers Date of admission: 10/02/20 14:32 Expected date of discharge: 10/09/20 Attending physician: Kamaljit Krause Consults: 09/30/20 19:09 Consult Physician Routine Consulting Provider: Carmelo Osorio Consult Reason/Comments: chf Do you want consulting provider notified?: Yes 10/01/20 08:49 Consult Physician Routine Consulting Provider: Brent Gutierrez Consult Reason/Comments: shortness of breath Do you want consulting provider notified?: Yes 10/01/20 08:57 Consult Physician Routine Consulting Provider: Mesha Kimble Consult Reason/Comments: CKD Do you want consulting provider notified?: Yes 10/04/20 10:29 Consult Physician Routine Consulting Provider: Bhanu Gray Consult Reason/Comments: weakness. inpatient rehab Do you want consulting provider notified?: Yes Primary care physician: Kamaljitdong Krause [facility] Course: Diagnosis on discharge: 1. Acute exacerbation of congestive heart failure will check echocardiogram and consult cardiology, patient started on Lasix. 2-D echo completed showing 55- 60%. Patient has been transitioned Lasix drip to IV Lasix 2. Severe and worsening lymphedema cause is unclear Will consult vascular surgery. evaluated by vascular surgery no acute indications for any vascular surgical intervention 3. Chronic kidney disease, will check kidney ultrasound and monitor kidney function daily 4. Underlying history of atrial fibrillation patient is maintained on Eliquis for stroke prevention, heart rate is well-controlled 5. Underlying history of hypertension 6. Underlying history of gout, will check uric acid level 7. Pzh-qeuamnt-dyvmcgskq diabetes mellitus millimeters so far maintained on diet only, will check hemoglobin A1c 8. Evidence of hypothyroidism with elevated TSH on presentation will start patient on Synthroid 25 g daily 9. Urinary tract infection. Patient started on Rocephin. Urine culture ordered. Hospital course: Livier Kilgore, is a 75-year-old female, who presented to [facility] emergency room with a chief complaint of worsening shortness of breath and bilateral lower extremity edema she was evaluated in the emergency room vital examination on presentation reveals a temperature of 97.9 pulse 91 respiration 16 and blood pressure 119/75 pulse ox 95% on room air her white blood count was 4.5 hemoglobin 10.9 platelet count 166 BUN was 18 creatinine 1.44 alkaline phosphatase 160 albumin and low at 3.2 TSH elevated at 6.53 coronavirus PCR was negative, chest x-ray revealed evidence of congestive heart failure and pulmonary edema, she was admitted to telemetry floor, cardiology consultation was requested. Patient has been having worsening lower extremity edema over the last few months with evidence of lymphedema, cause is unclear, she also has a known history of hypertension, gout, atrial fibrillation, and chronic kidney disease. On 10/02/2020 patient was seen and examined on the medical floor she is alert and oriented 3 in no apparent distress she is complaining of nausea today otherwise she denies any complaints there is no fever or chills no headache or dizziness no chest pain no shortness of breath no cough no vomiting no abdominal pain no diarrhea no blood in the stools no burning with urination no frequency or urgency no hematuria. Patient is still having significant lower extremity e elvie, she was started on Lasix drip yesterday however this had to be discontinued due to low blood pressure, she was evaluated today by nephrology again she was started on midodrine for low blood pressure and will be restarted on IV lasix drip. On 10/03/2020 patient was seen and examined on the medical floor she is alert and oriented 3 in no distress she is still complaining of severe bilateral lower extremity swelling otherwise no complaints at this time there is no fever or chills no headache or dizziness no chest pain, no shortness of breath no cough no nausea or vomiting no abdominal pain no diarrhea no blood in the stools no burning with urination no frequency or urgency and no hematuria. Blood pressure is low, she was started on midodrine yesterday she is still maintained on IV Lasix drip. On 10/04/2020 patient is alert and oriented 3 resting comfortably in bed patient remains on Lasix drip. UA positive for leukocyte esterase. Patient started on Rocephin. Urine culture ordered. PT OT consult area patient does live independently. Surgical consult possible placement. Dr. gray. consulted for possible inpatient rehab. Nephrology services are following. Weight down f rom 105.9 kg to 102.3 kg. Johnson catheter is in place. At this time patient denies chest pain or shortness breath. Patient denies nausea vomiting or diarrhea. on 10/05/2020 patient was seen and examined on the medical floor she is alert and oriented 3 in no apparent distress, there is no fever or chills no headache or dizziness no chest pain no shortness of breath no cough no nausea or vomiting no abdominal pain no diarrhea no blood in the stools, Johnson catheter is in place. Patient is maintained on IV Lasix drip, extremity swelling is improving gradually, she is followed by nephrology. On 10/06/2020 patient was seen and examined on the medical floor she is alert and oriented 3 in no apparent distress , she is still complaining of shortness of breath with any activity otherwise she denies any complaints there is no fever or chills no headache or dizziness no chest pain no palpitation no cough no nausea or vomiting no abdominal pain no diarrhea no blood in the stools no burning with urination no frequency or urgency and no hematuria On 10/07/2020. Patient is alert and oriented 3. Patient currently sitting up in chair. Patient remains on IV Lasix. This time patient denies chest pain or shortness of breath. Patient denies nausea vomiting diarrhea. Patient denies any urinary burning or frequency. Social work has been consulted for possible ECF placement upon discharge. On 10/08/2020 patient was seen and examined on the medical floor she is alert and oriented 3 in no apparent distress her shortness of breath and lower extremity edema has improved significantly since admission otherwise she denies any complaints there is no fever or chills no headache or dizziness no chest pain no cough no palpitation no nausea or vomiting no abdominal pain no diarrhea no blood in the stools no burning with urination no frequency or urgency and no hematuria On 10/09/2020 patient was seen and examined on the medical floor she is alert and oriented 3 in no apparent distress there is no fever or chills no headache or dizziness no chest pain shortness of breath has improved since yesterday there is no cough no palpitation no nausea or vomiting no abdominal pain no d iarrhea no blood in the stools no burning with urination no frequency or urgency and no hematuria patient was cleared for discharge she will be discharged today. Plan - Discharge Summary Discharge Rx Participant: No New Discharge Prescriptions: New Torsemide [Demadex] 20 mg PO DAILY tab Midodrine [ProAmatine] 10 mg PO TID tab Pantoprazole [Protonix] 40 mg PO AC-BRKFST tablet. Levothyroxine Sodium [Synthroid] 25 mcg PO DAILY@0630 tab Continue Metoprolol Tartrate [Lopressor] 50 mg PO BID tab Apixaban [Eliquis] 5 mg PO BID 30 Days #60 tab traMADol HCL 50 mg PO TID PRN PRN Reason: Pain Tolterodine Tartrate [Detrol LA] 4 mg PO DAILY Potassium Chloride [Klor-Con 20] 20 meq PO DAILY PRN PRN Reason: w/lasix Discontinued Furosemide [Lasix] 80 mg PO DAILY PRN PRN Reason: Edema Ibuprofen [Motrin Ib] 200 mg PO Q8H PRN PRN Reason: Pain Discharge Medication List Apixaban [Eliquis] 5 mg PO BID 30 Days #60 tab 10/15/18 [Rx] Metoprolol Tartrate [Lopressor] 50 mg PO BID tab 10/15/18 [Rx] Potassium Chloride [Klor-Con 20] 20 meq PO DAILY PRN 09/30/20 [History] Tolterodine Tartrate [Detrol LA] 4 mg PO DAILY 09/30/20 [History] traMADol HCL 50 mg PO TID PRN 09/30/20 [History] Levothyroxine Sodium [Synthroid] 25 mcg PO DAILY@0630 tab 10/09/20 [Rx] Midodrine [ProAmatine] 10 mg PO TID tab 10/09/20 [Rx] Pantoprazole [Protonix] 40 mg PO AC-BRKFST tablet. 10/09/20 [Rx] Torsemide [Demadex] 20 mg PO DAILY tab 10/09/20 [Rx] Follow up Appointment(s)/Referral(s): Juan Ball DO [Doctor of Osteopathic Medicine] - 2 Weeks Kamaljit Krause MD [Primary Care Provider] - 1-2 days Lexi Ruby MD [STAFF PHYSICIAN] - 2 Weeks
--- NOTE | 2020-10-09 17:21 | PN ---
PROGRESS NOTE Patient is seen for followup for acute kidney injury and volume overload. She has been diuresed with Lasix drip. The drip was discontinued and patient was switched to IV push Lasix. This morning she was started on Demadex. Overall, patient is feeling well. She denies any significant complaints. Her creatinine has been staying around 1.9, which is improved from peak of about 2.3 during this hospitalization. PHYSICAL EXAMINATION: On examination this morning, blood pressure was 113/64, heart rate 58 per minute. She is afebrile. EXAMINATION OF THE HEART: S1 and S2. EXAMINATION OF LUNGS: Bilateral breath sounds are heard. ABDOMEN: Soft, morbidly obese, non-tender. Examination of lower extremities shows chronic skin changes with chronic edema, currently improved. 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 LABS: Labs are not available from today. Potassium was 3.7 today. ASSESSMENT: 1. Acute kidney injury, mostly cardiorenal; renal function staying stable with creatinine at about 1.9 for the last couple of days. 2. Severe volume overload, status post Lasix drip, switched over to oral Demadex 20 mg daily. 3. Hypokalemia secondary to diuretics, status post replacement. 4. Congestive heart failure, acute on top of chronic, mostly diastolic. 5. Moderate to severe aortic stenosis. PLAN: Continue with oral Demadex. Follow up closely on volume status as outpatient and increase diuretics if needed. MMODL / IJN: [id number] /
== END 2020-10-09 17:57 | disposition still patient (30) | DRG 291 ==
LOC: EC 15:32 → 6NMEDSUR 19:09 → OBSVTOIN 10-02 14:32 → 5NMEDONC 10-02 21:47
PROVIDERS: ADMIT Internal Medicine; ATTEND Internal Medicine
PROC: 05HA33Z Insertion of Infusion Device into Left Brachial Vein, Percutaneous Approach (ICD-10-PCS; principal; 2020-09-30 18:01)
PROC: 05H933Z Insertion of Infusion Device into Right Brachial Vein, Percutaneous Approach (ICD-10-PCS; 2020-10-01 11:50)
DX: I13.0 Hypertensive heart and chronic kidney disease with heart failure and stage 1 through stage 4 chronic kidney disease, or unspecified chronic kidney disease (principal); I50.33 Acute on chronic diastolic (congestive) heart failure; N17.0 Acute kidney failure with tubular necrosis; I48.19 Other persistent atrial fibrillation; Z68.42 Body mass index [BMI] 45.0-49.9, adult; N39.0 Urinary tract infection, site not specified; E11.22 Type 2 diabetes mellitus with diabetic chronic kidney disease; E66.01 Morbid (severe) obesity due to excess calories; I27.20 Pulmonary hypertension, unspecified; I42.2 Other hypertrophic cardiomyopathy; N18.31 Chronic kidney disease, stage 3a; I87.2 Venous insufficiency (chronic) (peripheral); I87.8 Other specified disorders of veins; I87.309 Chronic venous hypertension (idiopathic) without complications of unspecified lower extremity; I89.0 Lymphedema, not elsewhere classified; Z20.822 Contact with and (suspected) exposure to COVID-19; E87.6 Hypokalemia; T50.2X5A Adverse effect of carbonic-anhydrase inhibitors, benzothiadiazides and other diuretics, initial encounter; I08.3 Combined rheumatic disorders of mitral, aortic and tricuspid valves; I95.9 Hypotension, unspecified; E03.9 Hypothyroidism, unspecified; K44.9 Diaphragmatic hernia without obstruction or gangrene; N39.3 Stress incontinence (female) (male); D63.1 Anemia in chronic kidney disease; M79.7 Fibromyalgia; M10.9 Gout, unspecified; L30.9 Dermatitis, unspecified; M19.90 Unspecified osteoarthritis, unspecified site; Z90.49 Acquired absence of other specified parts of digestive tract; Z90.710 Acquired absence of both cervix and uterus; Z95.0 Presence of cardiac pacemaker; Z98.890 Other specified postprocedural states; Z98.51 Tubal ligation status; Z98.42 Cataract extraction status, left eye; Z98.41 Cataract extraction status, right eye; Z96.659 Presence of unspecified artificial knee joint; Z88.5 Allergy status to narcotic agent; Z88.8 Allergy status to other drugs, medicaments and biological substances; Z91.040 Latex allergy status; Z79.899 Other long term (current) drug therapy; Z79.01 Long term (current) use of anticoagulants; Z86.73 Personal history of transient ischemic attack (TIA), and cerebral infarction without residual deficits; Z87.01 Personal history of pneumonia (recurrent); Z85.828 Personal history of other malignant neoplasm of skin; Z87.891 Personal history of nicotine dependence; Z82.0 Family history of epilepsy and other diseases of the nervous system; Z80.8 Family history of malignant neoplasm of other organs or systems
CPT/HCPCS: 36410; 36415; 71045; 71046; 76770; 76937; 80048; 80053; 81001; 82533; 82607; 82746; 83036; 83540; 83550; 83735; 83880; 84132; 84300; 84439; 84443; 84481; 84484; 84540; 84550; 85025; 85610; 85730; 87086; 87635; 93005; 93306; 96374; 99285

== ENCOUNTER 2020-10-15 12:56 | Inpatient (IN) | payer MEDICARE ==
[2020-10-15 14:55] LABS: Anisocytosis Slight; Basophils # (A) 0.1 k/uL (0-0.2); Basophils % (A) 1 %; Eosinophils # (A) 0.4 k/uL (0-0.7); Eosinophils % (A) 9 %; HCT 35.3 % (34.0-46.0); HGB 10.7 gm/dL (11.4-16.0); Hypochromasia Marked; Lymphocytes # (A) 0.4 k/uL (1.0-4.8); Lymphocytes % (A) 9 %; MCH 22.3 pg (25.0-35.0); MCHC 30.2 g/dL (31.0-37.0); Mean Platelet Volume 7.7; Microcytosis Moderate; Monocytes # (A) 0.4 k/uL (0-1.0); Monocytes % (A) 8 %; Neutrophils # (A) 3.3 k/uL (1.3-7.7); Neutrophils % (A) 72 %; Platelet Count 166 k/uL (150-450); Poikilocytosis Slight; RBC 4.77 m/uL (3.80-5.40); RDW 18.6 % (11.5-15.5); WBC 4.6 k/uL (3.8-10.6)
--- NOTE | 2020-10-15 15:00 | XR ---
EXAMINATION TYPE: XR chest 2V DATE OF EXAM: 10/15/2020 COMPARISON: 10/07/2020 HISTORY: 75-year-old female with weakness TECHNIQUE: AP and lateral views FINDINGS: Left anterior chest wall pacemaker generator with right atrial and right ventricular leads. Heart mod erately enlarged. Bilateral interstitial opacities and some patchy changes in the mid and lower lungs , similar to slightly increased from prior. Small effusions on the lateral view. IMPRESSION: Correlate for CHF with patchy pulmonary edema. Small pleural effusions on the lateral view.
[2020-10-15 15:03] LABS: INR 1.3 (<1.2); Partial Thromboplastin Time 30.7 sec (22.0-30.0)
[2020-10-15 15:06] LABS: Albumin 3.4 g/dL (3.5-5.0); Calcium 8.5 mg/dL (8.4-10.2); Magnesium 2.2 mg/dL (1.6-2.3); Total Bilirubin 1.6 mg/dL (0.2-1.3); Total Protein 7.1 g/dL (6.3-8.2)
[2020-10-15] MEDS ORDERED: PIPERACILLIN-TAZOBACTAM 3.375 GM in SODIUM CHLORIDE 0.9% 100 ML IVPB STA (15:09)
[2020-10-15 15:18] LABS: Potassium 3.4 mmol/L (3.5-5.1)
[2020-10-15] MEDS: MIDODRINE 5 MG TAB PO SCH (16:27)
[2020-10-15 16:32] LABS: Appearance,Urine Clear (Clear); Bacteria,Urine Rare /hpf; Bilirubin,Urine Negative (Negative); Blood,Urine Small (Negative); Budding Yeast,Urine Few /hpf; Color,Urine Yellow; Glucose,Urine (UA) Negative (Negative); Hyaline Casts,Urine 1 /lpf (0-2); Ketones,Urine Negative (Negative); Leukocyte Esterase,Urine Moderate (Negative); Mucus,Urine Rare /hpf; Nitrite,Urine Negative (Negative); Protein,Urine Trace (Negative); RBC,Urine 4 /hpf (0-5); Specific Gravity,Urine 1.013 (1.001-1.035); Squamous Epithelial Cell,Urine <1 /hpf (0-4); Urobilinogen,Urine <2.0 mg/dL (<2.0); WBC,Urine 8 /hpf (0-5)
[2020-10-15] MEDS ORDERED: NALOXONE 0.4 MG/ML 1 ML VIAL IV PRN (16:58)
[2020-10-15 17:58] LABS: T4, Free (Free Thyroxine) 1.93 ng/dL (0.78-2.19)
--- NOTE | 2020-10-15 18:10 | ED ---
Recheck HPI - General Source: patient, family Mode of arrival: wheelchair Limitations: no limitations <Melinda Calzada - Last Filed: 10/15/20 18:40> <Becky Rolle Nury - Last Filed: 10/18/20 21:04> - General Chief Complaint: Extremity Problem,Nontraumatic Stated Complaint: Vomiting/swelling - History of Present Illness Initial Comments: 75-year-old feel presenting with the family for generalized weakness. Patient states that she was recently at [facility] the left because she didn't want to stay there any longer. She states that she is only gotten weaker since she has left. She states she has some chronic shortness of breath denies chest pain. She states her legs are swollen all the time she does not know if they're worsen. Family states that she previously was mobile 2 weeks ago and now can no longer walk. They state she is weak all over. They deny any focalized deficits as such as one arm or leg sensation or weakness patient denies. They deny speech changes patient denies visual changes headaches or fevers.Daughter in law bedside states she had one episode of vomiting today but not other complaints/symptoms. Patient denies any other specific complaints is saying she is just fatigued and tired remaining review of systems negative. (eMlinda Calzada) - Related Data Home Medications Medication Instructions Recorded Confirmed Potassium Chloride [Klor-Con 20] 20 meq PO DAILY PRN 09/30/20 10/15/20 Tolterodine Tartrate [Detrol LA] 4 mg PO DAILY 09/30/20 10/15/20 traMADol HCL 50 mg PO Q8H PRN 09/30/20 10/15/20 Midodrine [ProAmatine] 10 mg PO Q8H 10/15/20 10/15/20 Previous Rx's Medication Instructions Recorded Apixaban [Eliquis] 5 mg PO BID 30 Days #60 tab 10/15/18 Metoprolol Tartrate [Lopressor] 50 mg PO BID tab 10/15/18 Levothyroxine Sodium [Synthroid] 25 mcg PO DAILY@0630 tab 10/09/20 Pantoprazole [Protonix] 40 mg PO AC-BRKFST tablet. 10/09/20 Torsemide [Demadex] 20 mg PO DAILY tab 10/09/20 Allergies Allergy/AdvReac Type Severity Reaction Status Date / Time codeine Allergy Unknown Verified 10/15/20 15:34 latex Allergy Rash/Hives Verified 10/15/20 15:34 hydrocodone bitartrate AdvReac Nausea & Verified 10/15/20 15:34 [From Vicodin] Vomiting & Diarrhea prednisone AdvReac brought on Verified 10/15/20 15:34 diabetes cortisone injections AdvReac brought on Uncoded 09/30/20 16:32 diabetes sedatives AdvReac "I could Uncoded 09/30/20 16:32 not wake up" steroids AdvReac Hallucinati Uncoded 09/30/20 16:32 ons Review of Systems ROS Other: All systems not noted in ROS Statement are negative. <Melinda Calzada - Last Filed: 10/15/20 18:40> ROS Other: All systems not noted in ROS Statement are negative. <Becky Rolle - Last Filed: 10/18/20 21:04> ROS Statement: Those systems with pertinent positive or pertinent negative responses have been documented in the HPI. Past Medical History Past Medical History: Cancer, CVA/TIA, Diabetes Mellitus, Fibromyalgia, Osteoarthritis (OA), Pneumonia, Renal Disease, Skin Disorder Additional Past Medical History / Comment(s): hx hiatal hernia, diarrhea, leakage of urine/urgency, "dry skin", anemia, skin cancer History of Any Multi-Drug Resistant Organisms: None Reported Past Surgical History: Appendectomy, Cholecystectomy, Heart Catheterization, Hysterectomy, Joint Replacement, Orthopedic Surgery, Pacemaker, Tonsillectomy, Tubal Ligation Additional Past Surgical History / Comment(s): cyril heel spurs, left shoulder rotator cuff, bone biopsy, cyril cataracts Past Anesthesia/Blood Transfusion Reactions: Previous Problems w/ Anesthesia, Family History of Problems w/ Anesthesia, Postoperative Nausea & Vomiting (PONV) Additional Past Anesthesia/Blood Transfusion Reaction / Comment(s): "could not wake for several days after knee replacement". brother PONV. Type of Cardiac Device: Permanent Pacemaker Device Placement Date:: 04/2009 Past Psychological History: No Psychological Hx Reported Smoking Status: Former smoker Past Alcohol Use History: None Reported Past Drug Use History: None Reported - Past Family History Father Family Medical History: Cancer Additional Family Medical History / Comment(s): skin Mother Family Medical History: Seizure Disorder <Melinda Calzada - Last Filed: 10/15/20 18:40> General Exam Limitations: no limitations <Melinda Calzada - Last Filed: 10/15/20 18:40> - General Exam Comments Initial Comments: General: The patient is awake and alert Eye: +3 mm pupils are equal, round and reactive to light, extra-ocular movements are intact. No nystagmus. There is normal conjunctiva bilaterally. No signs of icterus. Ears, nose, mouth and throat: There are moist mucous membranes and no oral lesions. Neck: The neck is supple, there is no tenderness or JVD. Cardiovascular: There is a regular rate and rhythm. No murmur, rub or gallop is appreciated. Respiratory: Respirations are non-labored, breath sounds are equal. No wheezes, strido. Scattered base rales/rhonchi. Gastrointestinal: Soft, non-distended, non-tender abdomen without masses or organomegaly noted. There is no rebound or guarding present. Musculoskeletal: Normal ROM, no tenderness. Strength 5/5. Sensation intact. Radidal and DP pulses equal bilaterally 2+. Neurological: A&O x 2. CN II-XII intact, There are no obvious motor or sensory deficits. Coordination appears grossly intact. Speech is normal. Skin: Skin is warm and dry and no rashes or lesions are noted. [place], edematous LE b/l Psychiatric: Cooperative, appropriate mood & affect, normal judgment. (Beckie Calzadaritchie Cruz) Course Vital Signs 10/15/20 10/15/20 10/15/20 13:05 14:48 15:07 Temperature 94.5 F L Pulse Rate 60 56 L Respiratory 18 18 Rate Blood Pressure 114/57 90/53 O2 Sat by Pulse 97 95 Oximetry 10/15/20 10/15/20 10/15/20 16:17 16:24 16:39 Temperature 94.9 F L Pulse Rate 55 L 55 L Respiratory 18 16 Rate Blood Pressure 83/51 94/53 O2 Sat by Pulse 97 95 Oximetry 10/15/20 10/15/20 10/15/20 16:47 17:00 18:54 Temperature 97.5 F L Pulse Rate 59 L 67 Respiratory 18 18 Rate Blood Pressure 97/67 101/62 102/47 O2 Sat by Pulse 99 98 Oximetry Medical Decision Making - Lab Data Result diagrams: 10/15/20 14:36 10/15/20 14:36 <Melinda Calzada - Last Filed: 10/15/20 18:40> - Lab Data Result diagrams: 10/18/20 08:04 10/18/20 08:04 <Becky Rolle - Last Filed: 10/18/20 21:04> - Medical Decision Making Labs no acute changes from previous values. Patient is found to be mildly hypothermic. bear hugger in place. patient initiated on abx. patient has chronic hypotension, is on midodrine. missed dose today. patient givne daily dose. initially suspected possible myoxedema coma, however, pt t4 WNL. patient case discussed at length with Dr. Rolle who at this time is agreeable to admission of patient for further monitoring/evaluation. blood culture pending. (Melinda Calzada) I was available for consultation in the emergency department. The history and physical exam were done by the midlevel provider. I was consulted for this patients care. I reviewed the case with the midlevel provider and based on their presentation of the patient, I agree with the assessment, medical decision making and plan of care as documented. Chart was dictated using [employer] dictation software. Attempts were made to correct any dictation errors however some typographical errors may persist. Patient was seen during a national state of emergency due to the Covid-19 pandemic. (Becky Rolle) Disposition Is patient prescribed a controlled substance at d/c from ED?: No Time of Disposition: 18:46 Decision to Admit Reason: Admit from EC Decision Date: 10/15/20 Decision Time: 18:46 <Melinda Calzada - Last Filed: 10/15/20 18:40> <Becky Rolle - Last Filed: 10/18/20 21:04> Clinical Impression: Hypothermia, TSH elevation, Pleural effusion, CHF (congestive heart failure), Chronic kidney disease Disposition: ADMITTED IP TO THIS HOSP Condition: Poor
[2020-10-15] MEDS: APIXABAN 5 MG TAB PO SCH (21:47)
[2020-10-16] MEDS: MIDODRINE 5 MG TAB PO SCH ×6 (00:03→23:40)
[2020-10-16 00:42] LABS: Glucose,Whole Blood 133 mg/dL (75-99)
[2020-10-16 06:12] LABS: Glucose,Whole Blood 103 mg/dL (75-99)
[2020-10-16] MEDS: LEVOTHYROXINE 25 MCG TAB PO SCH (06:15)
[2020-10-16] MEDS: PANTOPRAZOLE 40 MG TABLET PO SCH (06:16)
[2020-10-16] MEDS: APIXABAN 5 MG TAB PO SCH ×3 (08:19→20:46)
[2020-10-16 11:40] LABS: Glucose,Whole Blood 104 mg/dL (75-99)
[2020-10-16 12:12] VITALS: BMI 49.5
--- NOTE | 2020-10-16 12:31 | P.HPIM ---
History of Present Illness H&P Date: 10/16/20 Chief Complaint: Weakness This is a 75-year-old female patient presented to the ER with complaints of generalized weakness. Patient was recently admitted for CHF and was on Lasix drip was DC'd to [facility] for rehab. It is reported that patient was there less than 48 hours and then left AMA. Per patient had been continued to decline at home. Patient has a past medical history of CHF, CVA, diabetes mellitus, fibromyalgia, osteoporosis, pneumonia and dementia. Patient does appear more confused than baseline. Urinary analysis positive for UTI patient started on Rocephin. Patient was hypothermic upon admission. Temperature has since improved. Patient will pressure also well Lopressor on hold. At this time will consult cardiology services due to and known CHF. PT OT consulted social consulted for discharge planning. Rocephin added for urinary tract infection. Patient denies any specific complaints. Denies chest pain. Reports chronic shortness of breath. Patient denies nausea vomiting or diarrhea. Patient denies any urinary burning or frequency Review of Systems Please refer to HPI otherwise unremarkable Past Medical History Past Medical History: Cancer, Heart Failure, CVA/TIA, Diabetes Mellitus, Fibromyalgia, Osteoarthritis (OA), Pneumonia, Renal Disease, Skin Disorder Additional Past Medical History / Comment(s): hx hiatal hernia, diarrhea, leakage of urine/urgency, "dry skin", anemia, skin cancer History of Any Multi-Drug Resistant Organisms: None Reported Past Surgical History: Appendectomy, Cholecystectomy, Heart Catheterization, Hysterectomy, Joint Replacement, Orthopedic Surgery, Pacemaker, Tonsillectomy, Tubal Ligation Additional Past Surgical History / Comment(s): cyril heel spurs, left shoulder rotator cuff, bone biopsy, cyril cataracts Past Anesthesia/Blood Transfusion Reactions: Previous Problems w/ Anesthesia, Family History of Problems w/ Anesthesia, Postoperative Nausea & Vomiting (PONV) Additional Past Anesthesia/Blood Transfusion Reaction / Comment(s): "could not wake for several days after knee replacement". brother PONV. Type of Cardiac Device: Permanent Pacemaker Device Placement Date:: 04/2009 Past Psychological History: No Psychological Hx Reported Additional Psychological History / Comment(s): Pt resides with her spouse. She has a cane which she uses prn. She drives. Smoking Status: Never smoker Past Alcohol Use History: None Reported Additional Past Alcohol Use History / Comment(s): Pt started smoking in 1961 and quit in 1961 Past Drug Use History: None Reported - Past Family History Father Family Medical History: Cancer Additional Family Medical History / Comment(s): skin Mother Family Medical History: Seizure Disorder Medications and Allergies Home Medications Medication Instructions Recorded Confirmed Type Apixaban [Eliquis] 5 mg PO BID 30 Days #60 tab 10/15/18 10/15/20 Rx Metoprolol Tartrate [Lopressor] 50 mg PO BID tab 10/15/18 10/15/20 Rx Potassium Chloride [Klor-Con 20] 20 meq PO DAILY PRN 09/30/20 10/15/20 History Tolterodine Tartrate [Detrol LA] 4 mg PO DAILY 09/30/20 10/15/20 History traMADol HCL 50 mg PO Q8H PRN 09/30/20 10/15/20 History Levothyroxine Sodium [Synthroid] 25 mcg PO DAILY@0630 tab 10/09/20 10/15/20 Rx Pantoprazole [Protonix] 40 mg PO AC-BRKFST tablet. 10/09/20 10/15/20 Rx Torsemide [Demadex] 20 mg PO DAILY tab 10/09/20 10/15/20 Rx Midodrine [ProAmatine] 10 mg PO Q8H 10/15/20 10/15/20 History Allergies Allergy/AdvReac Type Severity Reaction Status Date / Time codeine Allergy Unknown Verified 10/15/20 15:34 latex Allergy Rash/Hives Verified 10/15/20 15:34 hydrocodone bitartrate AdvReac Nausea & Verified 10/15/20 15:34 [From Vicodin] Vomiting & Diarrhea prednisone AdvReac brought on Verified 10/15/20 15:34 diabetes cortisone injections AdvReac brought on Uncoded 09/30/20 16:32 diabetes sedatives AdvReac "I could Uncoded 09/30/20 16:32 not wake up" steroids AdvReac Hallucinati Uncoded 09/30/20 16:32 ons Physical Exam Vitals: Vital Signs Temp Pulse Pulse Resp BP BP Pulse Ox 10/16/20 11:02 98.2 F 75 16 100/62 94 L 10/16/20 08:00 96.5 F L 67 18 98/64 94 L 10/16/20 04:00 97.5 F L 68 17 97/55 96 10/15/20 23:54 96.5 F L 73 18 94/55 96 10/15/20 21:49 97.4 F L 68 18 91/58 94 L 10/15/20 18:54 97.5 F L 67 18 102/47 98 10/15/20 17:00 59 L 18 101/62 99 10/15/20 16:47 97/67 10/15/20 16:39 55 L 16 94/53 95 10/15/20 16:24 94.9 F L 10/15/20 16:17 55 L 18 83/51 97 10/15/20 15:07 56 L 18 90/53 95 10/15/20 14:48 94.5 F L 10/15/20 13:05 60 18 114/57 97 Intake and Output 10/15/20 10/16/20 10/16/20 22:59 06:59 14:59 Output Total 850 125 Balance -850 -125 Output: Urine 850 125 Other: Voiding Method Indwelling Catheter Indwelling Catheter Indwelling Catheter Weight 100.698 kg 107.5 kg Head normocephalic Neck supple Lungs clear to auscultation bilaterally no wheezing or crackles Heart regular rate and rhythm S1-S2, no rub or gallop Abdomen is soft nontender nondistended positive bowel sounds no hepatosplenomegaly Extremities no edema Neuro alert and orientated to 2. Intermittent confusion noted Results CBC & Chem 7: 10/15/20 14:36 10/15/20 14:36 Labs: Abnormal Lab Results - Last 24 Hours (Table) 10/15/20 10/15/20 10/15/20 Range/Units 14:36 14:36 14:36 Hgb 10.7 L (11.4-16.0) gm/dL MCV 74.0 L (80.0-100.0) fL MCH 22.3 L (25.0-35.0) pg MCHC 30.2 L (31.0-37.0) g/dL RDW 18.6 H (11.5-15.5) % Lymphocytes # 0.4 L (1.0-4.8) k/uL PT 13.0 H (9.0-12.0) sec INR 1.3 H (<1.2) APTT 30.7 H (22.0-30.0) sec Sodium 132 L (137-145) mmol/L Potassium 3.4 L (3.5-5.1) mmol/L Chloride 88 L (98-107) mmol/L Carbon Dioxide 38 H (22-30) mmol/L BUN 42 H (7-17) mg/dL Creatinine 1.59 H (0.52-1.04) mg/dL Glucose 108 H (74-99) mg/dL POC Glucose (mg/dL) (75-99) mg/dL Total Bilirubin 1.6 H (0.2-1.3) mg/dL AST 64 H (14-36) U/L Alkaline Phosphatase 168 H (38-126) U/L Albumin 3.4 L (3.5-5.0) g/dL TSH 7.150 H (0.465-4.680) mIU/L Urine Protein (Negative) Urine Blood (Negative) Ur Leukocyte Esterase (Negative) Urine WBC (0-5) /hpf Urine Bacteria (None) /hpf Urine Mucus (None) /hpf Urine Yeast (Budding) (None) /hpf 10/15/20 10/16/20 10/16/20 Range/Units 16:08 00:40 06:10 Hgb (11.4-16.0) gm/dL MCV (80.0-100.0) fL MCH (25.0-35.0) pg MCHC (31.0-37.0) g/dL RDW (11.5-15.5) % Lymphocytes # (1.0-4.8) k/uL PT (9.0-12.0) sec INR (<1.2) APTT (22.0-30.0) sec Sodium (137-145) mmol/L Potassium (3.5-5.1) mmol/L Chloride (98-107) mmol/L Carbon Dioxide (22-30) mmol/L BUN (7-17) mg/dL Creatinine (0.52-1.04) mg/dL Glucose (74-99) mg/dL POC Glucose (mg/dL) 133 H 103 H (75-99) mg/dL Total Bilirubin (0.2-1.3) mg/dL AST (14-36) U/L Alkaline Phosphatase (38-126) U/L Albumin (3.5-5.0) g/dL TSH (0.465-4.680) mIU/L Urine Protein Trace H (Negative) Urine Blood Small H (Negative) Ur Leukocyte Esterase Moderate H (Negative) Urine WBC 8 H (0-5) /hpf Urine Bacteria Rare H (None) /hpf Urine Mucus Rare H (None) /hpf Urine Yeast (Budding) Few H (None) /hpf 10/16/20 Range/Units 11:38 Hgb (11.4-16.0) gm/dL MCV (80.0-100.0) fL MCH (25.0-35.0) pg MCHC (31.0-37.0) g/dL RDW (11.5-15.5) % Lymphocytes # (1.0-4.8) k/uL PT (9.0-12.0) sec INR (<1.2) APTT (22.0-30.0) sec Sodium (137-145) mmol/L Potassium (3.5-5.1) mmol/L Chloride (98-107) mmol/L Carbon Dioxide (22-30) mmol/L BUN (7-17) mg/dL Creatinine (0.52-1.04) mg/dL Glucose (74-99) mg/dL POC Glucose (mg/dL) 104 H (75-99) mg/dL Total Bilirubin (0.2-1.3) mg/dL AST (14-36) U/L Alkaline Phosphatase (38-126) U/L Albumin (3.5-5.0) g/dL TSH (0.465-4.680) mIU/L Urine Protein (Negative) Urine Blood (Negative) Ur Leukocyte Esterase (Negative) Urine WBC (0-5) /hpf Urine Bacteria (None) /hpf Urine Mucus (None) /hpf Urine Yeast (Budding) (None) /hpf Thrombosis Risk Factor Assmnt - Choose All That Apply Each Factor Represents 1 point: Obesity (BMI >25) Other Risk Factors: Yes Each Risk Factor Represents 3 Points: Age 75 years or older Thrombosis Risk Factor Assessment Total Risk Factor Score: 4 Thrombosis Risk Factor Assessment Level: Moderate Risk Assessment and Plan Assessment: 1. Generalized weakness. Head CT ordered. Critical consult placed 2. Hypothermia. Resolved. 3. Hypotension. Beta tanya currently on hold. Cardiology service is consulted 4. CHF. 2-D echo recently completed showing EF of 55-60%. Cardiology services have been consulted 5. Severe worsening lymphedema. Patient recently evaluated by vascular surgery no surgical intervention recommended 6. chronic kidney disease. Creatinine 1.59 and bun 42. Nephrology services consulted 7. Urinary tract infection. Patient started on Rocephin. Urine culture ordered 8. History of gout 9. Hypothyroidism. Patient had elevated TSH last week was started on Synthroid. TSH remains elevated but continue current dose 10. History of atrial fibrillation. Patient is maintained on eliquis DVT prophylaxis eliquis. GI prophylaxis Protonix PT OT is consulted Social consulted for discharge planning Cardiology, nephrology and critical care service is consulted
--- NOTE | 2020-10-16 13:24 | CT ---
EXAMINATION TYPE: CT brain wo con DATE OF EXAM: 10/16/2020 COMPARISON: 04/22/2019 HISTORY: Altered mental status CT DLP: 1127.4 mGycm Automated exposure control for dose reduction was used. FINDINGS: Atherosclerotic change of the vasculature. Moderate to severe generalized degenerative change of the greater central component. Diffuse areas of abnormal attenuation the white matter are nonspecific. No acute hemorrhage or mass effect. Craniocervical junction maintained. Sella turcica has a normal appearance. Calvarium intact. IMPRESSION: DEGENERATIVE AND NONSPECIFIC WHITE MATTER CHANGES MOST TYPICAL OF REMOTE ISCHEMIA WITH NO ACUTE HEMOR RHAGE OR MASS EFFECT. GREATER CENTRAL COMPONENT OF VENTRICULAR DILATION CAN BE ASSOCIATED WITH NORMAL PRESSURE HYDROCEPHALUS, CORRELATE CLINICALLY.
[2020-10-16] MEDS: FUROSEMIDE 10 MG/ML 4 ML VIAL IV SCH ×2 (15:58→23:40)
--- NOTE | 2020-10-16 16:16 | P.CNPUL ---
History of Present Illness Consult date: 10/16/20 Requesting physician: Kamaljit Krause Reason for consult: dyspnea, other (Abnormal chest x-ray consistent with CHF) Chief complaint: Weakness History of present illness: This is a 75-year-old female with known history of multiple medical problems, patient was admitted to the hospital on 10/01/2020, and she was discharged on 10/09/19. Patient had on the last admission acute exacerbation of diastolic congestive heart failure, and she was treated with Lasix drip. Patient also had severe lymphedema, chronic atrial fibrillation and maintained on eliquis. History of hypertension, [id number] diabetes, hypothyroidism, and she had on the last admission acute urinary tract infection treated with Rocephin. After 8 days of hospitalization, patient was discharged to [facility] for re hab. And the patient was therefore less than 48 hours, then she left AGAINST MEDICAL ADVICE. At home, her condition continued to deteriorate, and she was becoming more and more confused. She was brought into the ER, noted to be hypothermic, and her chest x-ray showed evidence of congestive heart failure. Considering her abnormal chest x-ray, this consult was initiated. I saw the patient, she is presently on room air O2 saturation is 94%, patient is confused, cannot give any history, but does not seem to be in distress, she looks frail and chronically ill. But again no evidence of respiratory distress. Chest x- ray was reviewed, and I have recommended placing the patient back on Lasix IV push. ABC on admission was normal except for hemoglobin of 10.7. Electrolytes showed low potassium of 3.4, she had elevated bicarb of 38, elevated BUN of 42 creatinine 1.59, her creatinine the day of discharge was 1.9 and it was mostly in the range of 1.4 up to 2.2. Urinalysis showed evidence of minimal bacteriuria and minimal pyuria. Patient was recently treated for UTI with Rocephin. Her BNP level was elevated at 3500. Serum cortisol level is 18 and her TSH was elevated with relatively normal T4. Review of Systems ROS unobtainable: due to mental status Past Medical History Past Medical History: Cancer, Heart Failure, CVA/TIA, Diabetes Mellitus, Fibromyalgia, Osteoarthritis (OA), Pneumonia, Renal Disease, Skin Disorder Additional Past Medical History / Comment(s): hx hiatal hernia, diarrhea, leakage of urine/urgency, "dry skin", anemia, skin cancer History of Any Multi-Drug Resistant Organisms: None Reported Past Surgical History: Appendectomy, Cholecystectomy, Heart Catheterization, Hysterectomy, Joint Replacement, Orthopedic Surgery, Pacemaker, Tonsillectomy, Tubal Ligation Additional Past Surgical History / Comment(s): cyril heel spurs, left shoulder rotator cuff, bone biopsy, cyril cataracts Past Anesthesia/Blood Transfusion Reactions: Previous Problems w/ Anesthesia, Family History of Problems w/ Anesthesia, Postoperative Nausea & Vomiting (PONV) Additional Past Anesthesia/Blood Transfusion Reaction / Comment(s): "could not wake for several days after knee replacement". brother PONV. Type of Cardiac Device: Permanent Pacemaker Device Placement Date:: 04/2009 Past Psychological History: No Psychological Hx Reported Additional Psychological History / Comment(s): Pt resides with her spouse. She has a cane which she uses prn. She drives. Smoking Status: Never smoker Past Alcohol Use History: None Reported Additional Past Alcohol Use History / Comment(s): Pt started smoking in 1960 and quit in 1961 Past Drug Use History: None Reported - Past Family History Father Family Medical History: Cancer Additional Family Medical History / Comment(s): skin Mother Family Medical History: Seizure Disorder Medications and Allergies Home Medications Medication Instructions Recorded Confirmed Type Apixaban [Eliquis] 5 mg PO BID 30 Days #60 tab 10/15/18 10/15/20 Rx Metoprolol Tartrate [Lopressor] 50 mg PO BID tab 10/15/18 10/15/20 Rx Potassium Chloride [Klor-Con 20] 20 meq PO DAILY PRN 09/30/20 10/15/20 History Tolterodine Tartrate [Detrol LA] 4 mg PO DAILY 09/30/20 10/15/20 History traMADol HCL 50 mg PO Q8H PRN 09/30/20 10/15/20 History Levothyroxine Sodium [Synthroid] 25 mcg PO DAILY@0630 tab 10/09/20 10/15/20 Rx Pantoprazole [Protonix] 40 mg PO AC-BRKFST tablet. 10/09/20 10/15/20 Rx Torsemide [Demadex] 20 mg PO DAILY tab 10/09/20 10/15/20 Rx Midodrine [ProAmatine] 10 mg PO Q8H 10/15/20 10/15/20 History Allergies Allergy/AdvReac Type Severity Reaction Status Date / Time codeine Allergy Unknown Verified 10/15/20 15:34 latex Allergy Rash/Hives Verified 10/15/20 15:34 hydrocodone bitartrate AdvReac Nausea & Verified 10/15/20 15:34 [From Vicodin] Vomiting & Diarrhea prednisone AdvReac brought on Verified 10/15/20 15:34 diabetes cortisone injections AdvReac brought on Uncoded 09/30/20 16:32 diabetes sedatives AdvReac "I could Uncoded 09/30/20 16:32 not wake up" steroids AdvReac Hallucinati Uncoded 09/30/20 16:32 ons Physical Exam Vitals: Vital Signs Temp Pulse Pulse Resp BP BP Pulse Ox 10/16/20 13:44 75 10/16/20 11:02 98.2 F 75 16 100/62 94 L 10/16/20 08:00 96.5 F L 67 18 98/64 94 L 10/16/20 04:00 97.5 F L 68 17 97/55 96 10/15/20 23:54 96.5 F L 73 18 94/55 96 10/15/20 21:49 97.4 F L 68 18 91/58 94 L 10/15/20 18:54 97.5 F L 67 18 102/47 98 10/15/20 17:00 59 L 18 101/62 99 10/15/20 16:47 97/67 10/15/20 16:39 55 L 16 94/53 95 10/15/20 16:24 94.9 F L 10/15/20 16:17 55 L 18 83/51 97 Intake and Output 10/16/20 10/16/20 10/16/20 06:59 14:59 22:59 Output Total 125 100 Balance -125 -100 Output: Urine 125 100 Other: Voiding Method Indwelling Catheter Indwelling Catheter Weight 107.5 kg 107.5 kg GENERAL EXAM: Revealed 75-year-old female, confused, on room air, looks frail, and chronically ill. HEAD: Normocephalic. EYES: Normal reaction of pupils, equal size. NOSE: Clear with pink turbinates. THROAT: No erythema or exudates. NECK: No masses, no JVD. LUNGS: Her metrical chest expansion, fine crackles at the bases, no rhonchi and no wheezes CVS: S1 and S2 normal with 3/6 systolic murmur heard throughout the precordium but mostly at the left lower sternal border/apex ABDOMEN: Obese, soft, nontender, no megaly, no rebound Extremities: Evidence of lymphedema involving lower extremities and upper ex tremities. SKIN: No rashes CENTRAL NERVOUS SYSTEM: Patient is slow, confused, poor mental status. Could not volunteer any information about her condition. EXTREMITIES: Positive lymphedema. Results - Laboratory Findings CBC and BMP: 10/15/20 14:36 10/15/20 14:36 PT/INR, D-dimer PT 13.0 sec (9.0-12.0) H 10/15/20 14:36 INR 1.3 (<1.2) H 10/15/20 14:36 Abnormal lab findings: Abnormal Labs 10/15/20 10/15/20 10/15/20 14:36 14:36 14:36 Hgb 10.7 L MCV 74.0 L MCH 22.3 L MCHC 30.2 L RDW 18.6 H Lymphocytes # 0.4 L PT 13.0 H INR 1.3 H APTT 30.7 H Sodium 132 L Potassium 3.4 L Chloride 88 L Carbon Dioxide 38 H BUN 42 H Creatinine 1.59 H Glucose 108 H POC Glucose (mg/dL) Total Bilirubin 1.6 H AST 64 H Alkaline Phosphatase 168 H Albumin 3.4 L TSH 7.150 H Urine Protein Urine Blood Ur Leukocyte Esterase Urine WBC Urine Bacteria Urine Mucus Urine Yeast (Budding) 10/15/20 10/16/20 10/16/20 16:08 00:40 06:10 Hgb MCV MCH MCHC RDW Lymphocytes # PT INR APTT Sodium Potassium Chloride Carbon Dioxide BUN Creatinine Glucose POC Glucose (mg/dL) 133 H 103 H Total Bilirubin AST Alkaline Phosphatase Albumin TSH Urine Protein Trace H Urine Blood Small H Ur Leukocyte Esterase Moderate H Urine WBC 8 H Urine Bacteria Rare H Urine Mucus Rare H Urine Yeast (Budding) Few H 10/16/20 11:38 Hgb MCV MCH MCHC RDW Lymphocytes # PT INR APTT Sodium Potassium Chloride Carbon Dioxide BUN Creatinine Glucose POC Glucose (mg/dL) 104 H Total Bilirubin AST Alkaline Phosphatase Albumin TSH Urine Protein Urine Blood Ur Leukocyte Esterase Urine WBC Urine Bacteria Urine Mucus Urine Yeast (Budding) - Diagnostic Findings CT scan - chest: image reviewed (Chest x-ray is consistent with congestive heart failure/interstitial pulmonary edema and small pleural effusions noted on the lateral view) Additional studies: CT brain showed nonspecific white matter changes however the radiologist raised the possibility of ventricular data agitation and possible normal pressure hydrocephalus. Assessment and Plan Assessment: Impression: Generalized weakness, possible normal pressure hydrocephalus based on abnormal CT of the brain. Acute on chronic diastolic congestive heart failure, patient will be placed back on her diuretics. Chronic kidney disease stage III. Recurrent urinary tract infection, patient is on Rocephin, and cultures are pending. History of lymphedema History of hypothyroidism, patient is on Synthroid. Chronic atrial fibrillation maintained on Eliquis. Recommendation: Suggest neurological evaluation for possible normal pressure hydrocephalus. Suggest restarting the patient back on Lasix 40 mg IV push every 8 hours Resume home meds but continue to hold blood pressure medication as long as the patient has low blood pressure. Continue anticoagulation therapy. environmental services lead to evaluate for discharge planning and placement. Adjust antibiotics based on her next urine culture. We'll continue to follow, repeat chest x-ray in a.m. Time with Patient: Greater than 30
[2020-10-16 16:41] LABS: Glucose,Whole Blood 105 mg/dL (75-99)
[2020-10-16 20:21] LABS: Glucose,Whole Blood 97 mg/dL (75-99)
[2020-10-16] MEDS ORDERED: VANCOMYCIN IV PER PHARMACY 1 EACH MISC MISCELLANE PRN (22:19)
[2020-10-16 22:53] LABS: Anisocytosis Slight; Basophils # (A) 0.1 k/uL (0-0.2); Basophils % (A) 1 %; Eosinophils # (A) 0.2 k/uL (0-0.7); Eosinophils % (A) 4 %; HGB 9.8 gm/dL (11.4-16.0); Hypochromasia Moderate; Lymphocytes # (A) 0.4 k/uL (1.0-4.8); Lymphocytes % (A) 8 %; MCH 22.2 pg (25.0-35.0); MCHC 30.7 g/dL (31.0-37.0); MCV 72.4 fL (80.0-100.0); Mean Platelet Volume 7.7; Microcytosis Moderate; Monocytes # (A) 0.4 k/uL (0-1.0); Monocytes % (A) 8 %; Neutrophils # (A) 4.3 k/uL (1.3-7.7); Neutrophils % (A) 79 %; Platelet Count 164 k/uL (150-450); Poikilocytosis Slight; RBC 4.41 m/uL (3.80-5.40); RDW 18.7 % (11.5-15.5); WBC 5.4 k/uL (3.8-10.6)
[2020-10-16] MEDS ORDERED: VANCOMYCIN 1,750 MG in SODIUM CHLORIDE 0.9% 500 ML 500 ML IVPB ONE (23:00)
[2020-10-16 23:07] LABS: Albumin 2.8 g/dL (3.5-5.0); Calcium 8.3 mg/dL (8.4-10.2); Potassium 3.1 mmol/L (3.5-5.1); Total Bilirubin 1.2 mg/dL (0.2-1.3); Total Protein 5.9 g/dL (6.3-8.2)
[2020-10-17 06:08] LABS: Glucose,Whole Blood 101 mg/dL (75-99)
[2020-10-17] MEDS: LEVOTHYROXINE 25 MCG TAB PO SCH (07:01)
[2020-10-17 07:26] LABS: Anisocytosis Slight; Basophils # (A) 0.1 k/uL (0-0.2); Basophils % (A) 1 %; Eosinophils # (A) 0.1 k/uL (0-0.7); Eosinophils % (A) 3 %; HGB 9.8 gm/dL (11.4-16.0); Hypochromasia Marked; Lymphocytes # (A) 0.4 k/uL (1.0-4.8); Lymphocytes % (A) 7 %; MCH 22.2 pg (25.0-35.0); MCHC 30.6 g/dL (31.0-37.0); MCV 72.8 fL (80.0-100.0); Mean Platelet Volume 7.4; Microcytosis Moderate; Monocytes # (A) 0.5 k/uL (0-1.0); Monocytes % (A) 9 %; Neutrophils # (A) 4.6 k/uL (1.3-7.7); Neutrophils % (A) 79 %; Platelet Count 147 k/uL (150-450); Poikilocytosis Slight; RDW 18.8 % (11.5-15.5); WBC 5.7 k/uL (3.8-10.6)
[2020-10-17 07:48] LABS: Albumin 2.8 g/dL (3.5-5.0); Calcium 8.1 mg/dL (8.4-10.2); Potassium 3.1 mmol/L (3.5-5.1); Total Bilirubin 1.2 mg/dL (0.2-1.3); Total Protein 5.7 g/dL (6.3-8.2)
[2020-10-17] MEDS: APIXABAN 5 MG TAB PO SCH ×2 (10:01→20:46)
[2020-10-17] MEDS: MIDODRINE 5 MG TAB PO SCH ×2 (10:01→15:56)
[2020-10-17] MEDS: PANTOPRAZOLE 40 MG TABLET PO SCH (10:01)
--- NOTE | 2020-10-17 10:51 | CONS ---
CONSULTATION REASON FOR CONSULT: Renal failure. HISTORY OF PRESENT ILLNESS: Patient is a 75-year-old female who was just recently discharged on 10/02/2020 after hospitalization for CHF exacerbation and volume overload. The patient also had acute kidney injury mostly cardiorenal at that time with serum creatinine staying at about 1.9 mg/dL. The patient had been on Lasix drip which was eventually discontinued and she was discharged on 10/09/2020. Serum creatinine at the time of discharge was 1.9 on 10/08/2020. Patient was admitted on this admission with complaints of weakness. She was discharged to subacute rehab, however, she left rehab against medical advice and progressively got worse at home. No nausea, vomiting or abdominal pain per patient. The patient has had fair urine output. She has an indwelling Johnson catheter, 24 hour urine output, 1425 mL for 24 hours. Blood pressure has been around 113-120 mmHg systolic. However, there was a systolic of 98 and 97 mmHg on initial admission. Currently, patient is maintained on IV Lasix 40 mg q.12 hours. PAST MEDICAL HISTORY: Significant for CHF, CVA, TIA, type 2 diabetes, fibromyalgia, CKD, recent acute kidney injury, history of skin cancer. PAST SURGICAL HISTORY: Appendectomy, cholecystectomy, cardiac catheterization, hysterectomy, pacemaker placement, tonsillectomy, tubal ligation, left shoulder rotator cuff surgery, cataract surgeries, pacemaker placement. SOCIAL HISTORY: Negative for smoking, drug abuse or alcohol abuse. MEDICATIONS: Medications at home prior to admission include Eliquis, Lopressor, potassium, Detrol, tramadol, Synthroid, Protonix, Demadex, and midodrine. ALLERGIES: INCLUDE CODEINE, PREDNISONE, CORTISONE INJECTION, SEDATIVES AND STEROIDS. PHYSICAL EXAMINATION: On examination patient is currently comfortable, awake. She is not in any acute distress. Blood pressure was 111/69, heart rate 75 per minute she is afebrile. Examination of the heart S1, S2. Examination of lungs decreased breath sounds at bases. Abdomen is soft, nontender. Examination of lower extremities shows chronic skin changes, chronic edema noted. RESIDENT CARE PROVIDER exam grossly intact. LAB: Show sodium 132, potassium 3.1, chloride 91, CO2 is 36, BUN 43, creatinine 1.75, hemoglobin 9.8 g/dL. ASSESSMENT: 1. Chronic kidney disease NKF stage III mostly nephrosclerosis and cardiorenal. 2. Recent acute kidney injury, mostly cardiorenal. Serum creatinine is on the downward trend. Creatinine was 1.9 on discharge on 10/08/2020, now it is at about 1.7. The patient is maintained on IV Lasix 40 mg q.12 hours, which is appropriate for now. She was on Lasix drip on her previous admission for a long period of time. 3. Hypokalemia associated with diuresis being replaced. 4. Congestive heart failure, mostly diastolic. 5. Moderate to severe aortic stenosis. 6. Severe volume overload on her last admission, now improved. 7. Generalized debility. PLAN: Continue with current dose of Lasix. Repeat labs in a.m. Continue with midodrine due to chronic hypotension. Thank you for this consultation. Will continue to follow the patient with you during her hospitalization. MMJULIÁNL / TIKAN: [id number] /
[2020-10-17] MEDS: FUROSEMIDE 10 MG/ML 4 ML VIAL IV SCH ×2 (11:02→20:45)
--- NOTE | 2020-10-17 11:25 | P.CRDCN ---
History of Present Illness Consult date: 10/17/20 Requesting physician: Kamaljit Krause Consult reason: shortness of breath Chief complaint: Weakness History of present illness: This is a 75-year-old female with known history of chronic diastolic congestive heart failure, anemia, prior pacemaker implantation, persistent atrial fibrillation, prior CVA, diabetes, fibromyalgia, she was admitted to the hospital on October 01 and was discharged home on October 09. At that time she was admitted with congestive heart failure and was diuresed with an IV Lasix drip. She was discharged from here to [facility] for rehab, signed out of [facility] AGAINST MEDICAL ADVICE. Since the patient went home apparently her condition continued to deteriorate, she was becoming more confused and weak. Patient was brought to the emergency room, noted to be hypothermic and her chest x-ray showed evidence of congestive heart failure. Because of the chest x-rays abnormality of heart failure, a cardiology consultation was requested. At the time of my examination this morning, patient is mildly confused, not answering questions appropriately and she is not sure where she is or why she is here. Blood pressure 110/68 with a heart rate in the 70s, 95% on room air. White blood cell count 5.7, hemoglobin 9.8, platelet count 147. Sodium 132, potassium 3.1, BUN 43, creatinine 1.7, creatinine was 1.8 yesterday. Total bilirubin 8.1, albumin 2.8. Her rectal temperature on admission here was 94.5. She was also hypotensive with a blood pressure down to 83/50. BNP level 3500. TSH 7.1 Past Medical History Past Medical History: Cancer, Heart Failure, CVA/TIA, Diabetes Mellitus, Fibromyalgia, Osteoarthritis (OA), Pneumonia, Renal Disease, Skin Disorder Additional Past Medical History / Comment(s): hx hiatal hernia, diarrhea, leakage of urine/urgency, "dry skin", anemia, skin cancer History of Any Multi-Drug Resistant Organisms: None Reported Past Surgical History: Appendectomy, Cholecystectomy, Heart Catheterization, Hy sterectomy, Joint Replacement, Orthopedic Surgery, Pacemaker, Tonsillectomy, Tubal Ligation Additional Past Surgical History / Comment(s): cyril heel spurs, left shoulder rotator cuff, bone biopsy, cyril cataracts Past Anesthesia/Blood Transfusion Reactions: Previous Problems w/ Anesthesia, Family History of Problems w/ Anesthesia, Postoperative Nausea & Vomiting (PONV) Additional Past Anesthesia/Blood Transfusion Reaction / Comment(s): "could not wake for several days after knee replacement". brother PONV. Type of Cardiac Device: Permanent Pacemaker Device Placement Date:: 04/2009 Past Psychological History: No Psychological Hx Reported Additional Psychological History / Comment(s): Pt resides with her spouse. She has a cane which she uses prn. She drives. Smoking Status: Never smoker Past Alcohol Use History: None Reported Additional Past Alcohol Use History / Comment(s): Pt started smoking in 1960 and quit in 1961 Past Drug Use History: None Reported - Past Family History Father Family Medical History: Cancer Additional Family Medical History / Comment(s): skin Mother Family Medical History: Seizure Disorder Medications and Allergies Home Medications Medication Instructions Recorded Confirmed Type Apixaban [Eliquis] 5 mg PO BID 30 Days #60 tab 10/15/18 10/15/20 Rx Metoprolol Tartrate [Lopressor] 50 mg PO BID tab 10/15/18 10/15/20 Rx Potassium Chloride [Klor-Con 20] 20 meq PO DAILY PRN 09/30/20 10/15/20 History Tolterodine Tartrate [Detrol LA] 4 mg PO DAILY 09/30/20 10/15/20 History traMADol HCL 50 mg PO Q8H PRN 09/30/20 10/15/20 History Levothyroxine Sodium [Synthroid] 25 mcg PO DAILY@0630 tab 10/09/20 10/15/20 Rx Pantoprazole [Protonix] 40 mg PO AC-BRKFST tablet. 10/09/20 10/15/20 Rx Torsemide [Demadex] 20 mg PO DAILY tab 10/09/20 10/15/20 Rx Midodrine [ProAmatine] 10 mg PO Q8H 10/15/20 10/15/20 History Allergies Allergy/AdvReac Type Severity Reaction Status Date / Time codeine Allergy Unknown Verified 10/15/20 15:34 latex Allergy Rash/Hives Verified 10/15/20 15:34 hydrocodone bitartrate AdvReac Nausea & Verified 10/15/20 15:34 [From Vicodin] Vomiting & Diarrhea prednisone AdvReac brought on Verified 10/15/20 15:34 diabetes cortisone injections AdvReac brought on Uncoded 09/30/20 16:32 diabetes sedatives AdvReac "I could Uncoded 09/30/20 16:32 not wake up" steroids AdvReac Hallucinati Uncoded 09/30/20 16:32 ons Physical Exam Vitals: Vital Signs Temp Pulse Resp BP Pulse Ox 10/17/20 04:00 96.9 F L 75 20 111/69 95 10/17/20 00:00 97.7 F 74 18 127/74 95 10/16/20 20:57 98.0 F 80 18 118/73 95 10/16/20 19:56 97.7 F 77 17 113/63 94 L 10/16/20 16:00 97.6 F 70 16 108/66 95 10/16/20 13:44 75 Intake and Output 10/16/20 10/17/20 10/17/20 22:59 06:59 14:59 Intake Total 50 Output Total 725 600 475 Balance -076 -908 -812 Intake: Oral 50 Output: Urine 725 600 475 Other: Voiding Method Indwelling Catheter Indwelling Catheter Weight 107 kg GENERAL EXAM: Revealed 75-year-old female, confused, on room air, looks frail, and chronically ill. HEAD: Normocephalic. EYES: Normal reaction of pupils, equal size. NOSE: Clear with pink turbinates. THROAT: No erythema or exudates. NECK: No masses, no JVD. LUNGS: Her metrical chest expansion, fine crackles at the bases, no rhonchi and no wheezes CVS: S1 and S2 normal with 3/6 systolic murmur heard throughout the precordium but mostly at the left lower sternal border/apex ABDOMEN: Obese, soft, nontender, no megaly, no rebound Extremities: Evidence of lymphedema involving lower extremities and upper extremities. SKIN: No rashes CENTRAL NERVOUS SYSTEM: Patient is slow, confused, poor mental status. Could not volunteer any information about her condition. EXTREMITIES: Positive lymphedema. Results 10/17/20 06:49 10/17/20 06:49 Cardiac Enzymes 10/16/20 10/17/20 Range/Units 22:43 06:49 AST 36 36 (14-36) U/L CBC 10/16/20 10/17/20 Range/Units 22:43 06:49 WBC 5.4 5.7 (3.8-10.6) k/uL RBC 4.41 4.40 (3.80-5.40) m/uL Hgb 9.8 L 9.8 L (11.4-16.0) gm/dL Hct 32.0 L 32.0 L (34.0-46.0) % Plt Count 164 147 L (150-450) k/uL Comprehensive Metabolic Panel 10/16/20 10/17/20 Range/Units 22:43 06:49 Sodium 133 L 132 L (137-145) mmol/L Potassium 3.1 L 3.1 L (3.5-5.1) mmol/L Chloride 89 L 91 L (98-107) mmol/L Carbon Dioxide 37 H 36 H (22-30) mmol/L BUN 43 H 43 H (7-17) mg/dL Creatinine 1.80 H 1.75 H (0.52-1.04) mg/dL Glucose 103 H 89 (74-99) mg/dL Calcium 8.3 L 8.1 L (8.4-10.2) mg/dL AST 36 36 (14-36) U/L ALT 23 21 (4-34) U/L Alkaline Phosphatase 144 H 138 H (38-126) U/L Total Protein 5.9 L 5.7 L (6.3-8.2) g/dL Albumin 2.8 L 2.8 L (3.5-5.0) g/dL Current Medications Generic Name Dose Route Start Last Admin Trade Name Freq PRN Reason Stop Dose Admin Apixaban 5 mg 10/15/20 21:00 10/17/20 10:01 Apixaban 5 Mg Tab PO 5 mg BID LOLY Administration Furosemide 40 mg 10/17/20 21:00 Furosemide 10 Mg/Ml 4 Ml Vial IV Q12HR LOLY Ceftriaxone Sodium 1 gm/ 50 mls @ 100 mls/hr 10/16/20 11:45 10/17/20 10:01 Sodium Chloride IVPB 100 mls/hr Q24HR LOLY Administration Vancomycin HCl 1,750 mg/ 500 mls @ 167 mls/hr 10/18/20 06:00 Sodium Chloride IVPB 10/18/20 08:59 ONCE ONE Levothyroxine Sodium 25 mcg 10/16/20 06:30 10/17/20 07:01 Levothyroxine 25 Mcg Tab PO Not Given DAILY@0630 LOLY Midodrine 10 mg 10/15/20 16:00 10/17/20 10:01 Midodrine 5 Mg Tab PO 10 mg Q8H LOLY Administration Miscellaneous Information 1 each 10/16/20 22:19 Vancomycin Iv Per Pharm[place] 1 Each [facility] [place]N Per Protocol Protocol Naloxone HCl 0.2 mg 10/15/20 16:58 Naloxone 0.4 Mg/Ml 1 Ml Vial IV Q2M PRN Opioid Reversal Pantoprazole Sodium 40 mg 10/16/20 07:30 10/17/20 10:01 Pantoprazole 40 Mg Tablet PO 40 mg AC-BRKFST LOLY Administration Intake and Output 10/16/20 10/17/20 10/17/20 22:59 06:59 14:59 Intake Total 50 Output Total 725 600 475 Balance -772 -600 -555 Intake: Oral 50 Output: Urine 725 600 475 Other: Voiding Method Indwelling Catheter Indwelling Catheter Weight 107 kg 10/17/20 06:49 10/17/20 06:49 EKG Interpretations (text) EKG shows atrial fibrillation with a controlled ventricular response Assessment and Plan Plan: Assessment and plan #1 generalized weakness, with evidence of hypokalemia #2 acute on chronic diastolic congestive heart failure, patient put back on her diuretics by pulmonary #3 chronic kidney disease stage III #4 history of lymphedema #5 hypothyroidism #6 persistent atrial fibrillation, on Eliquis for anticoagulation #7 hypokalemia Plan Patient has been initiated on IV diuretics by pulmonary, we'll continue to m onitor the intake and output along with daily weights. Monitor renal function closely. Social work has been consulted for discharge planning and placement. Replace potassium. Lopressor currently on hold because of hypotension. There is no need to repeat an echocardiogram, she had one done earlier this month which revealed an ejection fraction of 55-60%. Moderate BERKLEY with a peak LVOT gradient of 24.34 mg of mercury, possible LVOT obstruction. Moderate to severe aortic stenosis, moderate mitral regurgitation, severe TR, severe pulmonary hypertension. Further recommendations to follow. DNP note has been reviewed, I agree with a documented findings and plan of care. Patient was seen and examined.
--- NOTE | 2020-10-17 11:38 | P.PN ---
Subjective Progress Note Date: 10/17/20 This is a 75-year-old female patient presented to the ER with complaints of generalized weakness. Patient was recently admitted for CHF and was on Lasix drip was DC'd to [facility] for rehab. It is reported that patient was there less than 48 hours and then left AMA. Per patient had been continued to decline at home. Patient has a past medical history of CHF, CVA, diabetes mellitus, fibromyalgia, osteoporosis, pneumonia and dementia. Patient does appear more confused than baseline. Urinary analysis positive for UTI patient started on Rocephin. Patient was hypothermic upon admission. Temperature has since improved. Patient will pressure also well Lopressor on hold. At this time will consult cardiology services due to and known CHF. PT OT consulted social consulted for discharge planning. Rocephin added for urinary tract infection. Patient denies any specific complaints. Denies chest pain. Reports chronic shortness of breath. Patient denies nausea vomiting or diarrhea. Patient denies any urinary burning or frequency. On 10/17/2020 patient was seen and examined on the telemetry floor she is somnolent and arousable and answers few questions and closes her eyes she is complaining of pain all over otherwise she is denying any complaints, her vital examination reveals a temperature of 97.4 pulse 90 respiration 18 blood pressure 118/72 pulse ox 95% on room air, computed tomography scan of the brain reviewed, there is possible normal pressure hydrocephalus, consultation for neurology was initiated in regard to depressed mental status and abnormal computed tomography scan of the brain, input from nephrology and pulmonary was reviewed. Objective - Vital Signs Vital signs: Vital Signs Temp 96.9 F L 10/17/20 04:00 Pulse 75 10/17/20 04:00 Resp 20 10/17/20 04:00 BP 111/69 10/17/20 04:00 Pulse Ox 95 10/17/20 04:00 Intake & Output 10/16/20 10/17/20 10/17/20 18:59 06:59 18:59 Intake Total 50 Output Total 425 1000 475 Balance -375 -1000 -751 Weight 107.5 kg 107 kg Intake: Oral 50 Output: Urine 425 1000 475 Other: Voiding Method Indwelling Catheter Indwelling Catheter - Exam In general patient is somnolent responsive in no apparent distress Head normocephalic and atraumatic Neck supple no JVD no goiter Lungs clear to auscultation bilaterally no wheezing or crackles Heart regular rate and rhythm S1-S2, no rub or gallop Abdomen is soft nontender nondistended positive bowel sounds no he patosplenomegaly Extremities mild edema no cyanosis or clubbing Neuro mental status as above otherwise no gross focal neurological deficit - Labs CBC & Chem 7: 10/17/20 06:49 10/17/20 06:49 Labs: Abnormal Lab Results - Last 24 Hours (Table) 10/16/20 10/16/20 10/16/20 Range/Units 11:38 16:40 22:43 Hgb (11.4-16.0) gm/dL Hct (34.0-46.0) % MCV (80.0-100.0) fL MCH (25.0-35.0) pg MCHC (31.0-37.0) g/dL RDW (11.5-15.5) % Plt Count (150-450) k/uL Lymphocytes # (1.0-4.8) k/uL Sodium 133 L (137-145) mmol/L Potassium 3.1 L (3.5-5.1) mmol/L Chloride 89 L (98-107) mmol/L Carbon Dioxide 37 H (22-30) mmol/L BUN 43 H (7-17) mg/dL Creatinine 1.80 H (0.52-1.04) mg/dL Glucose 103 H (74-99) mg/dL POC Glucose (mg/dL) 104 H 105 H (75-99) mg/dL Calcium 8.3 L (8.4-10.2) mg/dL Alkaline Phosphatase 144 H (38-126) U/L Total Protein 5.9 L (6.3-8.2) g/dL Albumin 2.8 L (3.5-5.0) g/dL 10/16/20 10/17/20 10/17/20 Range/Units 22:43 06:07 06:49 Hgb 9.8 L 9.8 L (11.4-16.0) gm/dL Hct 32.0 L 32.0 L (34.0-46.0) % MCV 72.4 L 72.8 L (80.0-100.0) fL MCH 22.2 L 22.2 L (25.0-35.0) pg MCHC 30.7 L 30.6 L (31.0-37.0) g/dL RDW 18.7 H 18.8 H (11.5-15.5) % Plt Count 147 L (150-450) k/uL Lymphocytes # 0.4 L 0.4 L (1.0-4.8) k/uL Sodium (137-145) mmol/L Potassium (3.5-5.1) mmol/L Chloride (98-107) mmol/L Carbon Dioxide (22-30) mmol/L BUN (7-17) mg/dL Creatinine (0.52-1.04) mg/dL Glucose (74-99) mg/dL POC Glucose (mg/dL) 101 H (75-99) mg/dL Calcium (8.4-10.2) mg/dL Alkaline Phosphatase (38-126) U/L Total Protein (6.3-8.2) g/dL Albumin (3.5-5.0) g/dL 10/17/20 Range/Units 06:49 Hgb (11.4-16.0) gm/dL Hct (34.0-46.0) % MCV (80.0-100.0) fL MCH (25.0-35.0) pg MCHC (31.0-37.0) g/dL RDW (11.5-15.5) % Plt Count (150-450) k/uL Lymphocytes # (1.0-4.8) k/uL Sodium 132 L (137-145) mmol/L Potassium 3.1 L (3.5-5.1) mmol/L Chloride 91 L (98-107) mmol/L Carbon Dioxide 36 H (22-30) mmol/L BUN 43 H (7-17) mg/dL Creatinine 1.75 H (0.52-1.04) mg/dL Glucose (74-99) mg/dL POC Glucose (mg/dL) (75-99) mg/dL Calcium 8.1 L (8.4-10.2) mg/dL Alkaline Phosphatase 138 H (38-126) U/L Total Protein 5.7 L (6.3-8.2) g/dL Albumin 2.8 L (3.5-5.0) g/dL Microbiology - Last 24 Hours (Table) 10/15/20 16:07 Blood Culture Gram Stain - Preliminary Blood 10/15/20 16:07 Blood Culture - Final Blood Assessment and Plan Assessment: 1. Generalized weakness. Head CT ordered. Critical consult placed 2. Hypothermia. Resolved. 3. Hypotension. Beta tanya currently on hold. Cardiology service is consulted 4. CHF. 2-D echo recently completed showing EF of 55-60%. Cardiology services have been consulted 5. Severe worsening lymphedema. Patient recently evaluated by vascular surgery no surgical intervention recommended 6. chronic kidney disease. Creatinine 1.59 and bun 42. Nephrology services consulted 7. Urinary tract infection. Patient started on Rocephin. Urine culture orde red 8. History of gout 9. Hypothyroidism. Patient had elevated TSH last week was started on Synth roid. TSH remains elevated but continue current dose 10. History of atrial fibrillation. Patient is maintained on eliquis 11. Abnormal computed tomography scan of the brain and mental status changes neurology consultation has been requested DVT prophylaxis eliquis. GI prophylaxis Protonix PT OT is consulted Social consulted for discharge planning Cardiology, nephrology and critical care service is consulted
[2020-10-17 12:07] LABS: Glucose,Whole Blood 95 mg/dL (75-99)
--- NOTE | 2020-10-17 13:31 | P.CNNES ---
History of Present Illness Consult date: 10/17/20 Requesting physician: Criselda Angulo Reason for Consult: normal pressure hydrocephalus History of Present Illness: This is a 75-year-old woman with medical history of atrial fibrillation on eliquis, sick sinus syndrome with pacemaker, cardiomyopathy hypothyroidism, pretension, congestive heart failure, diabetes mellitus, fibromyalgia, iron deficiency anemia and skin cancer that was admitted to [facility] for generalized weakness. Neurology is consulted for normal pressure hydrocephalus. Per the ED note it's mentioned (with family help) that the patient stated that she has leg weakness and they're swollen. She's been having difficulty walk-in and it's cannot walk longer walks. No focal weakness, numbness per the ED note. Also family denies of any speech changes He also seemed to the patient's been having the more shortness of breath and she has a chronic shortness of breath Daughter was in the ED and she notified that patient had an episode of vomiting. It seems that the patient was recently at [facility] and she left since she didn't want to stay any longer. Looks like the patient has had multiple hospital admissions in the last admission was for acute exacerbation of diastolic congestive heart failure and she was treated with Lasix drip. She also had her last admission she had acute urinary tract infection which was treated or Rocephin. And she was admitted from 10/01/2020 to 10/09/2020. After a days of hospitalization she was discharged to [facility] for rehab but left against AGAINST MEDICAL ADVICE. On presentation she was found that to be hypothermic with a initial temperature of 94.5 Fahrenheit. Then she was also found that her blood pressure was low systolic between 80s to 90s and diastolic in the 50s. CT of the head was done and it shows degenerative and nonspecific white matter changes most typical of remote ischemia with no acute hemorrhage or mass effect. Greater central component of ventricle dilation can be associated with normal pressure hydrocephalus, correlate clinically. EKG is reported as atrial fibrillation with occasional ventricular paced comp lexes. Left axis deviation. ST and T-wave abnormality, consider lateral ischemia. Her white blood cell was normal was 4.6. Sodium was 132 initially. The BUN is 42 and a creatinine is 1.59. Initial serum glucose is 108. Magnesium is 2.2. AST 64 and ALTs 28. CK level LXV which is normal. TSH 7.15 which is high but the free T4 is 1.93 which is normal. Urine analysis shows that the leukocyte esterase was moderate, urine bacteria was rare, urine white blood cells 8. Of note the patient was evaluated by neuro hospitalist (Dr. Morales) in our facility on 04/22/2019 for syncopal episode as well as abnormal CT of the head. And he felt there is nothing in the report suggests epileptic seizure despite the report of fecal incontinence so he didn't feel an EEG is warranted. Regarding the prominent looking ventricle he felt the CT of the head itself is not diagnostic of normal pressure hydrocephalus. And he recommended for the patient to be assessed by neurosurgeon of either getting a large volume lumbar puncture or nuclear medicine CSF flow study and possibly getting per minute MASTIC SPRAYER shunt if it is diagnostic. It is documented that the patient is not keen on N basis testing but want to have further conversation with outpatient neurosurgeon. And she was notified to follow up with neurosurgeon as an outpatient. Review of Systems Review of system is limited but the per positive and negative as per HPI Past Medical History Past Medical History: Cancer, Heart Failure, CVA/TIA, Diabetes Mellitus, Fibromyalgia, Osteoarthritis (OA), Pneumonia, Renal Disease, Skin Disorder Additional Past Medical History / Comment(s): hx hiatal hernia, diarrhea, leakage of urine/urgency, "dry skin", anemia, skin cancer History of Any Multi-Drug Resistant Organisms: None Reported Past Surgical History: Appendectomy, Cholecystectomy, Heart Catheterization, Hysterectomy, Joint Replacement, Orthopedic Surgery, Pacemaker, Tonsillectomy, Tubal Ligation Additional Past Surgical History / Comment(s): cyril heel spurs, left shoulder rot ator cuff, bone biopsy, cyril cataracts Past Anesthesia/Blood Transfusion Reactions: Previous Problems w/ Anesthesia, Family History of Problems w/ Anesthesia, Postoperative Nausea & Vomiting (PONV) Additional Past Anesthesia/Blood Transfusion Reaction / Comment(s): "could not wake for several days after knee replacement". brother PONV. Type of Cardiac Device: Permanent Pacemaker Device Placement Date:: 04/2009 Past Psychological History: No Psychological Hx Reported Additional Psychological History / Comment(s): Pt resides with her spouse. She has a cane which she uses prn. She drives. Smoking Status: Never smoker Past Alcohol Use History: None Reported Additional Past Alcohol Use History / Comment(s): Pt started smoking in 1960 and quit in 1961 Past Drug Use History: None Reported - Past Family History Father Family Medical History: Cancer Additional Family Medical History / Comment(s): skin Mother Family Medical History: Seizure Disorder Medications and Allergies Home Medications Medication Instructions Recorded Confirmed Type Apixaban [Eliquis] 5 mg PO BID 30 Days #60 tab 10/15/18 10/15/20 Rx Metoprolol Tartrate [Lopressor] 50 mg PO BID tab 10/15/18 10/15/20 Rx Potassium Chloride [Klor-Con 20] 20 meq PO DAILY PRN 09/30/20 10/15/20 History Tolterodine Tartrate [Detrol LA] 4 mg PO DAILY 09/30/20 10/15/20 History traMADol HCL 50 mg PO Q8H PRN 09/30/20 10/15/20 History Levothyroxine Sodium [Synthroid] 25 mcg PO DAILY@0630 tab 10/09/20 10/15/20 Rx Pantoprazole [Protonix] 40 mg PO [id number] tablet. 10/09/20 10/15/20 Rx Torsemide [Demadex] 20 mg PO DAILY tab 10/09/20 10/15/20 Rx Midodrine [ProAmatine] 10 mg PO Q8H 10/15/20 10/15/20 History Allergies Allergy/AdvReac Type Severity Reaction Status Date / Time codeine Allergy Unknown Verified 10/15/20 15:34 latex Allergy Rash/Hives Verified 10/15/20 15:34 hydrocodone bitartrate AdvReac Nausea & Verified 10/15/20 15:34 [From Vicodin] Vomiting & Diarrhea prednisone AdvReac brought on Verified 10/15/20 15:34 diabetes cortisone injections AdvReac brought on Uncoded 09/30/20 16:32 diabetes sedatives AdvReac "I could Uncoded 09/30/20 16:32 not wake up" steroids AdvReac Hallucinati Uncoded 09/30/20 16:32 ons Physical Examination - Vital Signs Vital Signs: Vital Signs Temp Pulse Resp BP Pulse Ox 10/17/20 12:00 78 18 119/68 97 10/17/20 08:00 97.4 F L 90 18 118/72 95 10/17/20 04:00 96.9 F L 75 20 111/69 95 10/17/20 00:00 97.7 F 74 18 127/74 95 10/16/20 20:57 98.0 F 80 18 118/73 95 10/16/20 19:56 97.7 F 77 17 113/63 94 L 10/16/20 16:00 97.6 F 70 16 108/66 95 10/16/20 13:44 75 Intake and Output 10/16/20 10/17/20 10/17/20 22:59 06:59 14:59 Intake Total 50 Output Total 725 600 475 Balance -675 -600 -789 Intake: Oral 50 Output: Urine 725 600 475 Other: Voiding Method Indwelling Catheter Indwelling Catheter Indwelling Catheter Weight 107 kg GENERAL: The patient is morbid obese lying in bed and is moaning and seems to be in pain. CHEST: The heart rate is regular rate rhythm. No murmurs to auscultation. LUNG: Clear to auscultation bilaterally no wheezing noted throughout. Not labored breathing. ABDOMEN/GI: Bowel sounds present in all 4 quadrants. No tenderness to palpation throughout. INTEGUMENTARY: Lymphedema of all extremities (predominately lower extremities) NEUROLOGICAL: Limited because of patient cooperation. Higher mental function: The patient is drowsy but awakeable to voice briefly. Is oriented to self. Otherwise not verbally reponding to me. She follow minimal command such as showing thumb up over left hand. Cranial nerves: The pupils are round, equal and reactive to light. No facial weakness bilaterally. No dysarthria from limited language. Otherwise could not assess rest of crania nerves because of patient cooperation. Motor: Gait is deferred. The strength is only squeezing of hands. Otherwise was not moving any extremities and upon lifiting them she was moaning in pain. Cerebellum: Could not assess. Sensation: Could not assess. Reflexes (right/left): Could not assess since patient was in pain. Plantars are downgoing bilaterally. Results Lee virus PCR was not detected. Coagulation study: PT of 13.0, INR is 1.3, PTT is 30.7. - Laboratory Findings CBC and BMP: 10/17/20 06:49 10/17/20 06:49 Abnormal Lab Findings: Abnormal Labs 10/15/20 10/15/20 10/15/20 14:36 14:36 14:36 Hgb 10.7 L Hct MCV 74.0 L MCH 22.3 L MCHC 30.2 L RDW 18.6 H Plt Count Lymphocytes # 0.4 L PT 13.0 H INR 1.3 H APTT 30.7 H Sodium 132 L Potassium 3.4 L Chloride 88 L Carbon Dioxide 38 H BUN 42 H Creatinine 1.59 H Glucose 108 H POC Glucose (mg/dL) Calcium Total Bilirubin 1.6 H AST 64 H Alkaline Phosphatase 168 H Total Protein Albumin 3.4 L TSH 7.150 H Urine Protein Urine Blood Ur Leukocyte Esterase Urine WBC Urine Bacteria Urine Mucus Urine Yeast (Budding) 10/15/20 10/16/20 10/16/20 16:08 00:40 06:10 Hgb Hct MCV MCH MCHC RDW Plt Count Lymphocytes # PT INR APTT Sodium Potassium Chloride Carbon Dioxide BUN Creatinine Glucose POC Glucose (mg/dL) 133 H 103 H Calcium Total Bilirubin AST Alkaline Phosphatase Total Protein Albumin TSH Urine Protein Trace H Urine Blood Small H Ur Leukocyte Esterase Moderate H Urine WBC 8 H Urine Bacteria Rare H Urine Mucus Rare H Urine Yeast (Budding) Few H 10/16/20 10/16/20 10/16/20 11:38 16:40 22:43 Hgb Hct MCV MCH MCHC RDW Plt Count Lymphocytes # PT INR APTT Sodium 133 L Potassium 3.1 L Chloride 89 L Carbon Dioxide 37 H BUN 43 H Creatinine 1.80 H Glucose 103 H POC Glucose (mg/dL) 104 H 105 H Calcium 8.3 L Total Bilirubin AST Alkaline Phosphatase 144 H Total Protein 5.9 L Albumin 2.8 L TSH Urine Protein Urine Blood Ur Leukocyte Esterase Urine WBC Urine Bacteria Urine Mucus Urine Yeast (Budding) 10/16/20 10/17/20 10/17/20 22:43 06:07 06:49 Hgb 9.8 L 9.8 L Hct 32.0 L 32.0 L MCV 72.4 L 72.8 L MCH 22.2 L 22.2 L MCHC 30.7 L 30.6 L RDW 18.7 H 18.8 H Plt Count 147 L Lymphocytes # 0.4 L 0.4 L PT INR APTT Sodium Potassium Chloride Carbon Dioxide BUN Creatinine Glucose POC Glucose (mg/dL) 101 H Calcium Total Bilirubin AST Alkaline Phosphatase Total Protein Albumin TSH Urine Protein Urine Blood Ur Leukocyte Esterase Urine WBC Urine Bacteria Urine Mucus Urine Yeast (Budding) 10/17/20 06:49 Hgb Hct MCV MCH MCHC RDW Plt Count Lymphocytes # PT INR APTT Sodium 132 L Potassium 3.1 L Chloride 91 L Carbon Dioxide 36 H BUN 43 H Creatinine 1.75 H Glucose POC Glucose (mg/dL) Calcium 8.1 L Total Bilirubin AST Alkaline Phosphatase 138 H Total Protein 5.7 L Albumin 2.8 L TSH Urine Protein Urine Blood Ur Leukocyte Esterase Urine WBC Urine Bacteria Urine Mucus Urine Yeast (Budding) Assessment and Plan Assessment: This is a 75-year-old woman with multiple medical problems that presents with generalized weakness. * Altered mental status due to multifactorial: Hypothermia, metabolic encephalopathy (Kidney insuffiency, mild elevated AST) Recurrent UTI, acute on chronic diastolic congestive heart failure. * Generalized weakness (for 2 weeks) is due to above and unlikely due to dilated ventricles of possible normal pressure hydrocephalus (she was evaluated for dilated ventricles on 04/22/2019) and was told to follow-up with neurosurgeon as outpatient and she notifed our team she did not want intervention at that time. * Acute Hypothermia * Acute on chronic kidney insufficiency * Mild elevated AST * Recurrent urinary tract infection is on Rocephin * History of lymphedema * Sick sinus syndrome with pacemaker * Diabetes mellitus * Fibromyalgia * History of iron deficiency anemia * History of hypothyroidism * Chronic atrial fibrillation on Eliquis Plan: CT of the head was done and it shows degenerative and nonspecific white matter changes most typical of remote ischemia with no acute hemorrhage or mass effect. Greater central component of ventricle dilation can be associated with normal pressure hydrocephalus, correlate clinically. TSH 7.15 which is high but the free T4 is 1.93 which is normal. Urine analysis shows that the leukocyte esterase was moderate, urine bacteria was rare, urine white blood cells 8. Vitamin B12 is 582 on 10/01/2020 which is normal. Folate is 9 which is normal. This does not need to be repeated. Physical therapy and occupation therapy are consulted. Of note the patient was evaluated by neuro hospitalist (Dr. Morales) in our facility on 04/22/2019: Regarding the prominent looking ventricle and was told to follow-up with neurosurgeon as outpatient and notified the neurologist she was not inclined of surgical intervention. We will try to find out with the pat ient of what transpired. I attempted to contact the patient's via phone but no response. We'll try again later. The plan is discussed with the patient's nurse. Thank you for consultation. Vignesh Gutierrez M.D. Neuro-hospitalist Time with Patient: Greater than 30
--- NOTE | 2020-10-17 13:35 | P.PN ---
Subjective Progress Note Date: 10/17/20 Principal diagnosis: Acute on chronic diastolic congestive heart failure This is a 75-year-old female with known history of multiple medical problems, patient was admitted to the hospital on 10/01/2020, and she was discharged on 10/09/19. Patient had on the last admission acute exacerbation of diastolic congestive heart failure, and she was treated with Lasix drip. Patient also had severe lymphedema, chronic atrial fibrillation and maintained on eliquis. History of hypertension, [id number] diabetes, hypothyroidism, and she had on the last admission acute urinary tract infection treated with Rocephin. After 8 days of hospitalization, patient was discharged to medical [facility] for rehab. And the patient was therefore less than 48 hours, then she left AGAINST MEDICAL ADVICE. At home, her condition continued to deteriorate, and she was becoming more and more confused. She was brought into the ER, noted to be hypothermic, and her chest x-ray showed evidence of congestive heart failure. Considering her abnormal chest x-ray, this consult was initiated. I saw the patient, she is presently on room air O2 saturation is 94%, patient is confused, cannot give any history, but does not seem to be in distress, she looks frail and chronically ill. But again no evidence of respiratory distress. Chest x- ray was reviewed, and I have recommended placing the patient back on Lasix IV push. ABC on admission was normal except for hemoglobin of 10.7. Electrolytes showed low potassium of 3.4, she had elevated bicarb of 38, elevated BUN of 42 creatinine 1.59, her creatinine the day of discharge was 1.9 and it was mostly in the range of 1.4 up to 2.2. Urinalysis showed evidence of minimal bacteriuria and minimal pyuria. Patient was recently treated for UTI with Rocephin. Her BNP level was elevated at 3500. Serum cortisol level is 18 and her TSH was elevated with relatively normal T4. Patient was reevaluated today on 10/17/2020, patient is a bit somnolent, arousable, basically not much different from yesterday. She is on room air, denies any specific complaints, but she looks generally weak and frail. Her O2 saturations 95% on room air. And neurological consultation is pending regarding the questionable normal pressure hydrocephalus as noted on the CT of the brain. Labs were reviewed CBC is relatively normal lites are normal except for low potassium of 3.1 renal functioning is slightly better with creatinine of 1.75 today, compared to yesterday was 1.80. No chest x-ray was ordered for today, I did order a chest x-ray to be done tomorrow and compared to her admission chest x-ray patient remains on diuretics/Lasix 40 mg IV push every 12 hours. The preliminary report on the blood culture is showing gram-positive cocci in clusters. Hence the patient is now on vancomycin empirically. She is also on Rocephin Objective - Vital Signs Vital signs: Vital Signs Temp 97.4 F L 10/17/20 08:00 Pulse 78 10/17/20 12:00 Resp 18 10/17/20 12:00 BP 119/68 10/17/20 12:00 Pulse Ox 97 10/17/20 12:00 Intake & Output 10/16/20 10/17/20 10/17/20 18:59 06:59 18:59 Intake Total 50 Output Total 425 1000 475 Balance -375 -1000 -475 Weight 107.5 kg 107 kg Intake: Oral 50 Output: Urine 425 1000 475 Other: Voiding Method Indwelling Catheter Indwelling Catheter Indwelling Catheter - Exam GENERAL EXAM: Revealed 75-year-old female, confused, on room air, looks frail, and chronically ill. On room air HEAD: Normocephalic. EYES: Normal reaction of pupils, equal size. NOSE: Clear with pink turbinates. THROAT: No erythema or exudates. NECK: No masses, no JVD. LUNGS: Her metrical chest expansion, fine crackles at the bases, no rhonchi and no wheezes CVS: S1 and S2 normal with 3/6 systolic murmur heard throughout the precordium but mostly at the left lower sternal border/apex ABDOMEN: Obese, soft, nontender, no megaly, no rebound Extremities: Evidence of lymphedema involving lower extremities and upper extremities. SKIN: No rashes CENTRAL NERVOUS SYSTEM: Patient is slow, confused, poor mental status. Could not volunteer any information about her condition. EXTREMITIES: Positive lymphedema. - Labs CBC & Chem 7: 10/17/20 06:49 10/17/20 06:49 Labs: Abnormal Lab Results - Last 24 Hours (Table) 10/16/20 10/16/20 10/16/20 Range/Units 16:40 22:43 22:43 Hgb 9.8 L (11.4-16.0) gm/dL Hct 32.0 L (34.0-46.0) % MCV 72.4 L (80.0-100.0) fL MCH 22.2 L (25.0-35.0) pg MCHC 30.7 L (31.0-37.0) g/dL RDW 18.7 H (11.5-15.5) % Plt Count (150-450) k/uL Lymphocytes # 0.4 L (1.0-4.8) k/uL Sodium 133 L (137-145) mmol/L Potassium 3.1 L (3.5-5.1) mmol/L Chloride 89 L (98-107) mmol/L Carbon Dioxide 37 H (22-30) mmol/L BUN 43 H (7-17) mg/dL Creatinine 1.80 H (0.52-1.04) mg/dL Glucose 103 H (74-99) mg/dL POC Glucose (mg/dL) 105 H (75-99) mg/dL Calcium 8.3 L (8.4-10.2) mg/dL Alkaline Phosphatase 144 H (38-126) U/L Total Protein 5.9 L (6.3-8.2) g/dL Albumin 2.8 L (3.5-5.0) g/dL 10/17/20 10/17/20 10/17/20 Range/Units 06:07 06:49 06:49 Hgb 9.8 L (11.4-16.0) gm/dL Hct 32.0 L (34.0-46.0) % MCV 72.8 L (80.0-100.0) fL MCH 22.2 L (25.0-35.0) pg MCHC 30.6 L (31.0-37.0) g/dL RDW 18.8 H (11.5-15.5) % Plt Count 147 L (150-450) k/uL Lymphocytes # 0.4 L (1.0-4.8) k/uL Sodium 132 L (137-145) mmol/L Potassium 3.1 L (3.5-5.1) mmol/L Chloride 91 L (98-107) mmol/L Carbon Dioxide 36 H (22-30) mmol/L BUN 43 H (7-17) mg/dL Creatinine 1.75 H (0.52-1.04) mg/dL Glucose (74-99) mg/dL POC Glucose (mg/dL) 101 H (75-99) mg/dL Calcium 8.1 L (8.4-10.2) mg/dL Alkaline Phosphatase 138 H (38-126) U/L Total Protein 5.7 L (6.3-8.2) g/dL Albumin 2.8 L (3.5-5.0) g/dL Microbiology - Last 24 Hours (Table) 10/15/20 16:07 Blood Culture Gram Stain - Preliminary Blood 10/15/20 16:07 Blood Culture - Final Blood Assessment and Plan Assessment: Impression: Gram-positive bacteremia, and sepsis, likely source could be urine. Generalized weakness, possible normal pressure hydrocephalus based on abnormal CT of the brain. Acute on chronic diastolic congestive heart failure, patient will be placed back on her diuretics. Chronic kidney disease stage III. Recurrent urinary tract infection, patient is on Rocephin, and cultures are pending. History of lymphedema History of hypothyroidism, patient is on Synthroid. Chronic atrial fibrillation maintained on Eliquis. Recommendation: Agree with vancomycin empirically, Continue Rocephin until the final cultures of the urine output are available. Neurology was consulted. Continue Lasix 40 mg IV push every 12 hours. Resume home meds but continue to hold blood pressure medication as long as the patient has low blood pressure. Continue anticoagulation therapy. account services specialist to evaluate for discharge planning and placement. We'll continue to follow, repeat chest x-ray in a.m. Time with Patient: Less than 30
[2020-10-17 16:52] LABS: Glucose,Whole Blood 108 mg/dL (75-99)
[2020-10-17 20:18] LABS: Glucose,Whole Blood 91 mg/dL (75-99)
[2020-10-17] MEDS ORDERED: Potassium Replacement Protocol 1 EACH MISC MISCELLANE PRN (20:18)
[2020-10-17] MEDS: POTASSIUM CHLORIDE 10 MEQ in WATER FOR INJECTION 1 100ML.BAG IVPB SCH ×3 (20:45→23:05)
[2020-10-18] MEDS: POTASSIUM CHLORIDE 10 MEQ in WATER FOR INJECTION 1 100ML.BAG IVPB SCH ×5 (00:27→22:17)
[2020-10-18] MEDS: MIDODRINE 5 MG TAB PO SCH ×4 (02:07→23:22)
[2020-10-18 05:49] LABS: Glucose,Whole Blood 81 mg/dL (75-99)
[2020-10-18] MEDS ORDERED: VANCOMYCIN 1,750 MG in SODIUM CHLORIDE 0.9% 500 ML 500 ML IVPB ONE (06:00)
[2020-10-18] MEDS: PANTOPRAZOLE 40 MG TABLET PO SCH (06:31)
[2020-10-18] MEDS: LEVOTHYROXINE 25 MCG TAB PO SCH (06:31)
--- NOTE | 2020-10-18 07:21 | XR ---
EXAMINATION TYPE: XR chest 1V portable DATE OF EXAM: 10/18/2020 HISTORY: Shortness of breath. COMPARISON: 10/15/2020 TECHNIQUE: Single view of the chest is submitted. FINDINGS: Demonstrated are scattered senescent parenchymal change. Patchy perihilar and basilar infiltrates persist without significant interval change. The heart is stable. Hilar and mediastinal structures are within normal limits. Degenerative changes are seen of the dorsal spine. IMPRESSION: 1. Stable chest.
--- NOTE | 2020-10-18 08:57 | CONS ---
CONSULTATION DATE OF SERVICE: 10/17/2020. REASON FOR CONSULTATION: Bacteremia. HISTORY OF PRESENT ILLNESS: The patient is a 75-year-old female who apparently was recently admitted to this facility and treated for congestive heart failure. Subsequent patient was discharged home to the [facility] for rehabilitation. The patient signed out AMA after 48 hours while at the rehab. The patient has now been brought back to the ER at [facility] 2 days ago for evaluation of increasing weakness and continued to decline at home per her . The patient complaining of increasing shortness of breath, but denies having any chest pain. Minimal cough. No vomiting. No diarrhea. Not a very good historian though. On presentation to the hospital, the patient was noticed to be hypothermic with temperature of 94.5 degrees Fahrenheit. The patient subsequently temperature has normalized. The patient did have a normal white count on admission as well as . The patient did have elevated BUN and creatinine. Liver enzymes are normal. Urine was mildly positive with moderate leukocytosis, 8 WBC, Lee PCR was negative. She was diagnosed with UTI. The patient was started on Rocephin. The patient chest x-ray has been suggestive of CHF with patchy pulmonary edema. Blood culture drawn, came back positive with gram-positive cocci. The patient was started on vancomycin. Infectious Disease was consulted for further management of antibiotic therapy. Most of the information has been obtained from review of the chart and talking to nursing staff. The patient is not a good historian. The patient currently does not have any open wound. REVIEW OF SYSTEMS: Positive points have been mentioned in HPI. Complete review could not be obtained because of her underlying condition. PAST MEDICAL HISTORY: Diabetes mellitus, fibromyalgia, osteoarthritis, CVA, TIA, pneumonia, congestive heart failure, renal insufficiency, hiatal hernia. PAST SURGICAL HISTORY: Appendectomy, cholecystectomy, heart catheterization, hysterectomy, joint replacement, surgery, pacemaker placement, tonsillectomy, tubal ligation. SOCIAL HISTORY: Patient is . Lives with her . Remote history of smoking. No drinking or drug use. FAMILY HISTORY: Father history of skin cancer. Mother history of seizure disorder. ALLERGIES: TO CODEINE, LATEX, HYDROCODONE, PREDNISONE. MEDICATIONS: The patient is currently on Eliquis, Rocephin 1 g daily, Lasix, vancomycin pharmacy to dose. She is on Narcan, Protonix. PHYSICAL EXAMINATION: Blood pressure 115/74 with a pulse of 81, temperature is 97.4. She is 96% on room air. General description is an elderly female lying in bed in no distress. No tachypnea or accessory muscles of respiration use. HEENT: Examination shows slight pallor. No scleral icterus. Oral mucous membranes dry. NECK: Trachea central. No thyromegaly. LUNGS unlabored breathing, decreased breath sounds in the base, with no wheeze or crackles. HEART S1, S2. Regular rate and rhythm. ABDOMEN: Soft, no tenderness. No guarding. No rigidity. EXTREMITIES: No edema of the feet. SKIN examination: No rash or mass palpable. NEUROLOGIC: The patient is awake, orientation could not be determined. The patient is not a very good historian. LABS: Hemoglobin is 9.8, white count 5.7, BUN of 43, creatinine 1.75, potassium 3.1. Liver enzymes are normal. Urine was mildly positive. Lee PCR negative. Blood culture with Gram-positive cocci. DIAGNOSTIC IMPRESSION AND PLAN: 1. Patient admitted to the hospital with weakness which is likely multifactorial in this patient with possible component of urinary tract infection, it is very hard to get any history on this patient as far as urinary symptoms. 2. Patient with a positive blood culture with Gram-positive cocci with question of possible skin contaminant likely related to the urinary tract infection. There was no evidence of any cellulitis wound and chest x-ray negative for any pneumonia. 3. Patient with renal insufficiency, high risk of nephrotoxicity. PLAN: 1. Blood cultures repeat to document clearance of bacteremia. 2. The patient is currently on vancomycin, Pharmacy to dose. Continue while watching the kidney function closely. 3. We will follow on clinical condition and culture to further adjust medication if needed. Thank you for this consultation. Will follow this patient along with you. MMODL / IJN: [id number] /
[2020-10-18] MEDS: APIXABAN 5 MG TAB PO SCH ×2 (09:07→23:03)
[2020-10-18] MEDS: FUROSEMIDE 10 MG/ML 4 ML VIAL IV SCH ×2 (09:13→22:16)
[2020-10-18 09:41] LABS: Anisocytosis Slight; Basophils % (A) 1 %; Eosinophils # (A) 0.2 k/uL (0-0.7); Eosinophils % (A) 3 %; HCT 32.2 % (34.0-46.0); HGB 9.9 gm/dL (11.4-16.0); Hypochromasia Marked; Lymphocytes # (A) 0.4 k/uL (1.0-4.8); Lymphocytes % (A) 5 %; MCH 22.6 pg (25.0-35.0); MCHC 30.7 g/dL (31.0-37.0); MCV 73.6 fL (80.0-100.0); Microcytosis Moderate; Monocytes # (A) 0.5 k/uL (0-1.0); Monocytes % (A) 7 %; Neutrophils # (A) 6.1 k/uL (1.3-7.7); Neutrophils % (A) 84 %; Platelet Count 150 k/uL (150-450); Poikilocytosis Slight; RBC 4.37 m/uL (3.80-5.40); WBC 7.3 k/uL (3.8-10.6)
[2020-10-18 09:56] LABS: Albumin 2.7 g/dL (3.5-5.0); Calcium 8.2 mg/dL (8.4-10.2); Total Bilirubin 1.3 mg/dL (0.2-1.3); Total Protein 5.8 g/dL (6.3-8.2)
--- NOTE | 2020-10-18 10:15 | P.PN ---
Subjective Progress Note Date: 10/18/20 This is a 75-year-old female with known history of multiple medical problems, patient was admitted to the hospital on 10/01/2020, and she was discharged on 10/09/19. Patient had on the last admission acute exacerbation of diastolic congestive heart failure, and she was treated with Lasix drip. Patient also had severe lymphedema, chronic atrial fibrillation and maintained on eliquis. History of hypertension, [id number] diabetes, hypothyroidism, and she had on the last admission acute urinary tract infection treated with Rocephin. After 8 days of hospitalization, patient was discharged to [facility] for rehab. And the patient was therefore less than 48 hours, then she left AGAINST MEDICAL ADVICE. At home, her condition continued to deteriorate, and she was becoming more and more confused. She was brought into the ER, noted to be hypothermic, and her chest x-ray showed evidence of congestive heart failure. Considering her abnormal chest x-ray, this consult was initiated. I saw the patient, she is presently on room air O2 saturation is 94%, patient is confused, cannot give any history, but does not seem to be in distress, she looks frail and chronically ill. But again no evidence of respiratory distress. Chest x- ray was reviewed, and I have recommended placing the patient back on Lasix IV push. ABC on admission was normal except for hemoglobin of 10.7. Electrolytes showed low potassium of 3.4, she had elevated bicarb of 38, elevated BUN of 42 creatinine 1.59, her creatinine the day of discharge was 1.9 and it was mostly in the range of 1.4 up to 2.2. Urinalysis showed evidence of minimal bacteriuria and minimal pyuria. Patient was recently treated for UTI with Rocephin. Her BNP level was elevated at 3500. Serum cortisol level is 18 and her TSH was elevated with relatively normal T4. Patient was reevaluated today on 10/17/2020, patient is a bit somnolent, arousable, basically not much different from yesterday. She is on room air, denies any specific complaints, but she looks generally weak and frail. Her O2 saturations 95% on room air. And neurological consultation is pending regarding the questionable normal pressure hydrocephalus as noted on the CT of the brain. Labs were reviewed CBC is relatively normal lites are normal except for low potassium of 3.1 renal functioning is slightly better with creatinine of 1.75 today, compared to yesterday was 1.80. No chest x-ray was ordered for today, I did order a chest x-ray to be done tomorrow and compared to her admission chest x-ray patient remains on diuretics/Lasix 40 mg IV push every 12 hours. The preliminary report on the blood culture is showing gram-positive cocci in clusters. Hence the patient is now on vancomycin empirically. She is also on Rocephin On today's evaluation of 10/18/2020, the patient is lethargic and sleepy. -2.6 L for yesterday and the patient is receiving Lasix 40 mg every 12 hours. She is producing adequate amount of urine output. Creatinine is down to 1.5. She is currently on room air oxygen. No chest pain. No significant signs of any kay rtness of breath. Her pulse ox is 92% on room air oxygen. She is normothermic for now. The blood culture came back positive for coagulase-negative staph which is probably contaminant. The patient is on vancomycin empirically that can be discontinued and the patient is also on IV Rocephin.. The follow-up chest x-ray showing improvement in the volume status and a perihilar infiltrate described earlier. She still has cardiomegaly and she also has a pacemaker over the left anterior chest area. Creatinine is improving is currently down to 1.5. Objective - Vital Signs Vital signs: Vital Signs Temp 97.4 F L 10/18/20 03:56 Pulse 96 10/18/20 03:56 Resp 20 10/18/20 03:56 BP 102/60 10/18/20 03:56 Pulse Ox 92 L 10/18/20 03:56 Intake & Output 10/17/20 10/18/20 10/18/20 18:59 06:59 18:59 Output Total 2700 1050 Balance -2700 -1050 Weight 101 kg Output: Urine 2700 1050 Other: Voiding Method Indwelling Catheter Indwelling Catheter - Exam GENERAL EXAM: Revealed 75-year-old female, confused, on room air, looks frail, and chronically ill. On room air HEAD: Normocephalic. EYES: Normal reaction of pupils, equal size. NOSE: Clear with pink turbinates. THROAT: No erythema or exudates. NECK: No masses, no JVD. LUNGS: Her metrical chest expansion, fine crackles at the bases, no rhonchi and no wheezes CVS: S1 and S2 normal with 3/6 systolic murmur heard throughout the precordium but mostly at the left lower sternal border/apex ABDOMEN: Obese, soft, nontender, no megaly, no rebound Extremities: Evidence of lymphedema involving lower extremities and upper extremities. SKIN: No rashes CENTRAL NERVOUS SYSTEM: Patient is slow, confused, poor mental status. Could not volunteer any information about her condition. EXTREMITIES: Positive lymphedema. - Labs CBC & Chem 7: 10/18/20 08:04 10/18/20 08:04 Labs: Abnormal Lab Results - Last 24 Hours (Table) 10/17/20 10/18/20 10/18/20 Range/Units 16:50 08:04 08:04 Hgb 9.9 L (11.4-16.0) gm/dL Hct 32.2 L (34.0-46.0) % MCV 73.6 L (80.0-100.0) fL MCH 22.6 L (25.0-35.0) pg MCHC 30.7 L (31.0-37.0) g/dL RDW 19.0 H (11.5-15.5) % Lymphocytes # 0.4 L (1.0-4.8) k/uL Sodium (137-145) mmol/L Potassium (3.5-5.1) mmol/L Chloride (98-107) mmol/L Carbon Dioxide (22-30) mmol/L BUN (7-17) mg/dL Creatinine 1.56 H (0.52-1.04) mg/dL POC Glucose (mg/dL) 108 H (75-99) mg/dL Calcium (8.4-10.2) mg/dL Alkaline Phosphatase (38-126) U/L Total Protein (6.3-8.2) g/dL Albumin (3.5-5.0) g/dL 10/18/20 Range/Units 08:04 Hgb (11.4-16.0) gm/dL Hct (34.0-46.0) % MCV (80.0-100.0) fL MCH (25.0-35.0) pg MCHC (31.0-37.0) g/dL RDW (11.5-15.5) % Lymphocytes # (1.0-4.8) k/uL Sodium 134 L (137-145) mmol/L Potassium 3.0 L (3.5-5.1) mmol/L Chloride 89 L (98-107) mmol/L Carbon Dioxide 39 H (22-30) mmol/L BUN 41 H (7-17) mg/dL Creatinine 1.57 H (0.52-1.04) mg/dL POC Glucose (mg/dL) (75-99) mg/dL Calcium 8.2 L (8.4-10.2) mg/dL Alkaline Phosphatase 144 H (38-126) U/L Total Protein 5.8 L (6.3-8.2) g/dL Albumin 2.7 L (3.5-5.0) g/dL Microbiology - Last 24 Hours (Table) 10/15/20 16:07 Blood Culture Gram Stain - Preliminary Blood Blood Culture - Preliminary Coagulase Negative Staph Assessment and Plan Plan: 1 Altered mental status due to multifactorial: Hypothermia, metabolic encephalopathy (Kidney insuffiency, mild elevated AST) Recurrent UTI, acute on chronic diastolic congestive heart failure. 2 Generalized weakness, possible normal pressure hydrocephalus based on abnormal CT of the brain.(she was evaluated for dilated ventricles on 04/22/2019) and was told to follow-up with neurosurgeon as outpatient and she notifed our team she did not want intervention at that time. 3 Acute on chronic diastolic congestive heart failure, patient will be placed back on her diuretics. 4 Chronic kidney disease stage III. 5 Recurrent urinary tract infection, patient is on Rocephin, and cultures are pending. 6 History of lymphedema 7 History of hypothyroidism, patient is on Synthroid. 8 Chronic atrial fibrillation maintained on Eliquis 9 Gram-positive bacteremia, coag. negative staph 10 Acute Hypothermia 11 sick sinus syndrome with a pacemaker insertion 12 fibromyalgia 13 iron deficiency anemia 14 hypothyroidism 15 chronic atrial fibrillation on Eliquis Recommendation: Agree with vancomycin empirically, this can be discontinued as the patient has coagulase-negative staph in the blood. Continue Rocephin until the final cultures of the urine output are available. Neurology was consulted. Continue Lasix 40 mg IV push every 12 hours. The patient has been negative fluid balance. The patient has been losing weight and she has adequate urine output. Creatinine is improving is currently down to 1.5. She is on room air oxygen and her chest x-ray is also improving. Resume home meds but continue to hold blood pressure medication as long as the patient has low blood pressure. Continue anticoagulation therapy. library services coordinator to evaluate for discharge planning and placement. We'll continue to follow, *
--- NOTE | 2020-10-18 10:43 | P.PN ---
Subjective Progress Note Date: 10/18/20 This is a 75-year-old female with known history of chronic diastolic congestive heart failure, anemia, prior pacemaker implantation, persistent atrial fibrillation, prior CVA, diabetes, fibromyalgia, she was admitted to the hospital on October 01 and was discharged home on October 09. At that time she was admitted with congestive heart failure and was diuresed with an IV Lasix drip. She was discharged from here to [facility] for rehab, signed out of [facility] AGAINST MEDICAL ADVICE. Since the patient went home apparently her condition continued to deteriorate, she was becoming more confused and weak. Patient was brought to the emergency room, noted to be hypothermic and her chest x-ray showed evidence of congestive heart failure. Because of the chest x-rays abnormality of heart failure, a cardiology consultation was requested. At the time of my examination this morning, patient is mildly confused, not answering questions appropriately and she is not sure where she is or why she is here. Blood pressure 110/68 with a heart rate in the 70s, 95% on room air. White blood cell count 5.7, hemoglobin 9.8, platelet count 147. Sodium 132, potassium 3.1, BUN 43, creatinine 1.7, creatinine was 1.8 yesterday. Total bilirubin 8.1, albumin 2.8. Her rectal temperature on admission here was 94.5. She was also hypotensive with a blood pressure down to 83/50. BNP level 3500. TSH 7.1 October 18 Patient seen and examined this morning, remains quite lethargic and sleepy. Diuresing on IV Lasix. Creatinine today is 1.5. Overall it appears that her breathing is stable, she's 92% on room air. Blood culture came back positive for coagulase-negative staph. Patient is empirically on vancomycin and IV Rocephin. Her chest x-ray shows improvement in volume status. Objective - Vital Signs Vital signs: Vital Signs Temp 97.4 F L 10/18/20 03:56 Pulse 96 10/18/20 03:56 Resp 20 10/18/20 03:56 BP 102/60 10/18/20 03:56 Pulse Ox 92 L 10/18/20 03:56 Intake & Output 10/17/20 10/18/20 10/18/20 18:59 06:59 18:59 Output Total 2700 1050 400 Balance -2700 -1050 -400 Weight 101 kg Output: Urine 2700 1050 400 Other: Voiding Method Indwelling Catheter Indwelling Catheter - Exam GENERAL EXAM: Revealed 75-year-old female, confused, on room air, looks frail, and chronically ill. HEAD: Normocephalic. EYES: Normal reaction of pupils, equal size. NOSE: Clear with pink turbinates. THROAT: No erythema or exudates. NECK: No masses, no JVD. LUNGS: Her metrical chest expansion, fine crackles at the bases, no rhonchi and no wheezes CVS: S1 and S2 normal with 3/6 systolic murmur heard throughout the precordium but mostly at the left lower sternal border/apex ABDOMEN: Obese, soft, nontender, no megaly, no rebound Extremities: Evidence of lymphedema involving lower extremities and upper extremities. SKIN: No rashes CENTRAL NERVOUS SYSTEM: Patient is slow, confused, poor mental status. Could not volunteer any information about her condition. - Labs CBC & Chem 7: 10/18/20 08:04 10/18/20 08:04 Labs: Abnormal Lab Results - Last 24 Hours (Table) 10/17/20 10/18/20 10/18/20 Range/Units 16:50 08:04 08:04 Hgb 9.9 L (11.4-16.0) gm/dL Hct 32.2 L (34.0-46.0) % MCV 73.6 L (80.0-100.0) fL MCH 22.6 L (25.0-35.0) pg MCHC 30.7 L (31.0-37.0) g/dL RDW 19.0 H (11.5-15.5) % Lymphocytes # 0.4 L (1.0-4.8) k/uL Sodium (137-145) mmol/L Potassium (3.5-5.1) mmol/L Chloride (98-107) mmol/L Carbon Dioxide (22-30) mmol/L BUN (7-17) mg/dL Creatinine 1.56 H (0.52-1.04) mg/dL POC Glucose (mg/dL) 108 H (75-99) mg/dL Calcium (8.4-10.2) mg/dL Alkaline Phosphatase (38-126) U/L Total Protein (6.3-8.2) g/dL Albumin (3.5-5.0) g/dL 10/18/20 Range/Units 08:04 Hgb (11.4-16.0) gm/dL Hct (34.0-46.0) % MCV (80.0-100.0) fL MCH (25.0-35.0) pg MCHC (31.0-37.0) g/dL RDW (11.5-15.5) % Lymphocytes # (1.0-4.8) k/uL Sodium 134 L (137-145) mmol/L Potassium 3.0 L (3.5-5.1) mmol/L Chloride 89 L (98-107) mmol/L Carbon Dioxide 39 H (22-30) mmol/L BUN 41 H (7-17) mg/dL Creatinine 1.57 H (0.52-1.04) mg/dL POC Glucose (mg/dL) (75-99) mg/dL Calcium 8.2 L (8.4-10.2) mg/dL Alkaline Phosphatase 144 H (38-126) U/L Total Protein 5.8 L (6.3-8.2) g/dL Albumin 2.7 L (3.5-5.0) g/dL Microbiology - Last 24 Hours (Table) 10/15/20 16:07 Blood Culture Gram Stain - Preliminary Blood Blood Culture - Preliminary Coagulase Negative Staph Assessment and Plan Plan: Assessment and plan #1 generalized weakness, with evidence of hypokalemia #2 acute on chronic diastolic congestive heart failure, patient put back on her diuretics by pulmonary #3 chronic kidney disease stage III #4 history of lymphedema #5 hypothyroidism #6 persistent atrial fibrillation, on Eliquis for anticoagulation #7 hypokalemia Plan Pulmonary is wanting to continue the IV Lasix, we'll continue to monitor the intake and output. statement services representative for discharge planning. DNP note has been reviewed, I agree with a documented findings and plan of care. Patient was seen and examined.
[2020-10-18] MEDS ORDERED: Potassium Replacement Protocol 1 EACH MISC MISCELLANE PRN ×2 (10:52→14:54)
--- NOTE | 2020-10-18 10:58 | P.PN ---
Subjective Progress Note Date: 10/18/20 This is a 75-year-old female patient presented to the ER with complaints of generalized weakness. Patient was recently admitted for CHF and was on Lasix drip was DC'd to [facility] for rehab. It is reported that patient was there less than 48 hours and then left AMA. Per patient had been continued to decline at home. Patient has a past medical history of CHF, CVA, diabetes mellitus, fibromyalgia, osteoporosis, pneumonia and dementia. Patient does appear more confused than baseline. Urinary analysis positive for UTI patient started on Rocephin. Patient was hypothermic upon admission. Temperature has since improved. Patient will pressure also well Lopressor on hold. At this time will consult cardiology services due to and known CHF. PT OT consulted social consulted for discharge planning. Rocephin added for urinary tract infection. Patient denies any specific complaints. Denies chest pain. Reports chronic shortness of breath. Patient denies nausea vomiting or diarrhea. Patient denies any urinary burning or frequency. On 10/17/2020 patient was seen and examined on the telemetry floor she is somnolent and arousable and answers few questions and closes her eyes she is complaining of pain all over otherwise she is denying any complaints, her vital examination reveals a temperature of 97.4 pulse 90 respiration 18 blood pressure 118/72 pulse ox 95% on room air, computed tomography scan of the brain reviewed, there is possible normal pressure hydrocephalus, consultation for neurology was initiated in regard to depressed mental status and abnormal computed tomography scan of the brain, input from nephrology and pulmonary was reviewed. On 10/18/2020 patient is resting comfortably in bed. Patient remains somnolent but is arousable and answers questions at times. Creatinine trending down to 1.57 and bun 41. Potassium remains low at 3.0 placed per protocol. Patient remains on vancomycin. Critical care, infectious disease, nephrology services, cardiology and neurology services are following. Vitals at this time remain stable Objective - Vital Signs Vital signs: Vital Signs Temp 97.4 F L 10/18/20 03:56 Pulse 96 10/18/20 03:56 Resp 20 10/18/20 03:56 BP 102/60 10/18/20 03:56 Pulse Ox 92 L 10/18/20 03:56 Intake & Output 10/17/20 10/18/2021 18:59 06:59 18:59 Output Total 2700 1050 400 Balance -2700 -1050 -400 Weight 101 kg Output: Urine 2700 1050 400 Other: Voiding Method Indwelling Catheter Indwelling Catheter - Exam In general patient is somnolent responsive in no apparent distress Head normocephalic and atraumatic Neck supple no JVD no goiter Lungs clear to auscultation bilaterally no wheezing or crackles Heart regular rate and rhythm S1-S2, no rub or gallop Abdomen is soft nontender nondistended positive bowel sounds no hepatosplenomegaly Extremities mild edema no cyanosis or clubbing Neuro mental status as above otherwise no gross focal neurological deficit - Labs CBC & Chem 7: 10/18/20 08:04 10/18/20 08:04 Labs: Abnormal Lab Results - Last 24 Hours (Table) 10/17/20 10/18/20 10/18/20 Range/Units 16:50 08:04 08:04 Hgb 9.9 L (11.4-16.0) gm/dL Hct 32.2 L (34.0-46.0) % MCV 73.6 L (80.0-100.0) fL MCH 22.6 L (25.0-35.0) pg MCHC 30.7 L (31.0-37.0) g/dL RDW 19.0 H (11.5-15.5) % Lymphocytes # 0.4 L (1.0-4.8) k/uL Sodium (137-145) mmol/L Potassium (3.5-5.1) mmol/L Chloride (98-107) mmol/L Carbon Dioxide (22-30) mmol/L BUN (7-17) mg/dL Creatinine 1.56 H (0.52-1.04) mg/dL POC Glucose (mg/dL) 108 H (75-99) mg/dL Calcium (8.4-10.2) mg/dL Alkaline Phosphatase (38-126) U/L Total Protein (6.3-8.2) g/dL Albumin (3.5-5.0) g/dL 10/18/20 Range/Units 08:04 Hgb (11.4-16.0) gm/dL Hct (34.0-46.0) % MCV (80.0-100.0) fL MCH (25.0-35.0) pg MCHC (31.0-37.0) g/dL RDW (11.5-15.5) % Lymphocytes # (1.0-4.8) k/uL Sodium 134 L (137-145) mmol/L Potassium 3.0 L (3.5-5.1) mmol/L Chloride 89 L (98-107) mmol/L Carbon Dioxide 39 H (22-30) mmol/L BUN 41 H (7-17) mg/dL Creatinine 1.57 H (0.52-1.04) mg/dL POC Glucose (mg/dL) (75-99) mg/dL Calcium 8.2 L (8.4-10.2) mg/dL Alkaline Phosphatase 144 H (38-126) U/L Total Protein 5.8 L (6.3-8.2) g/dL Albumin 2.7 L (3.5-5.0) g/dL Microbiology - Last 24 Hours (Table) 10/15/20 16:07 Blood Culture Gram Stain - Preliminary Blood Blood Culture - Preliminary Coagulase Negative Staph Assessment and Plan Assessment: 1. Generalized weakness. 2. Acute Hypothermia. Resolved. 3. Hypotension. Beta tanya currently on hold. Cardiology service is consulted 4. Acute on chronic diastolic congestive heart failure. 2-D echo recently completed showing EF of 55-60%. Cardiology services have been consulted. Patient remains on IV Lasix 5. Severe worsening lymphedema. Patient recently evaluated by vascular surgery no surgical intervention recommended 6. chronic kidney disease stage III. Creatinine 1.59 and bun 42. Nephrology services consulted 7. Urinary tract infection. Patient started on Rocephin. Urine culture ordered 8. History of gout 9. Hypothyroidism. Patient had elevated TSH last week was started on Synthroid. TSH remains elevated but continue current dose 10. History of persistent atrial fibrillation. Patient is maintained on el iquis 11. Abnormal computed tomography scan of the brain and mental status changes neurology consultation has been requested. Neurology services are following 12. Gram-positive bacteremia. Coagulase-negative staph. Patient remains on vancomycin. Infectious disease is following repeat cultures have been ordered 13. Sick sinus syndrome with pacemaker insertion 14. Hypokalemia likely secondary to diuretics. Replacement protocol DVT prophylaxis eliquis. GI prophylaxis Protonix PT OT is consulted Social consulted for discharge planning Cardiology, nephrology, infectious disease, neurology and critical care service following
--- NOTE | 2020-10-18 13:33 | PN ---
PROGRESS NOTE Patient was admitted to the hospital with increased weakness. Her blood cultures growing coagulase-negative Staph. She was recently hospitalized for acute CHF and volume overload and was status post Lasix drip. Currently patient is maintained on Lasix IV q.12 hours. She has had good urine output. She has an indwelling Johnson catheter. She had about 3.7 L of urine for 24 hours. Renal function is stable with creatinine staying at about 1.5. Chest x-ray is stable without any significant changes in the patchy infiltrates. Overall, patient is comfortable today. She is not in any acute distress. She has significant edema in the upper extremities. PHYSICAL EXAMINATION: Blood pressure was 105/62, heart rate 87 per minute, patient is afebrile. Examination of the heart S1, S2. Examination of the lungs, decreased breath sounds at bases. Abdomen is soft, morbidly obese. Examination of lower extremities shows chronic edema with lymphedema. Chronic skin changes. Significant edema noted in bilateral upper extremities as well with some bruising. FIRER BISQUE KILN exam shows patient is awake, answers simple questions, but she is lethargic. LAB: Show sodium 134, potassium 3.0, chloride 89, BUN 41, creatinine 1.57, hemoglobin 9.9 g/dL. ASSESSMENT: 1. Acute kidney injury from last admission, currently improved. Creatinine down to about 1.5 from 1.8 and staying about there. Her creatinine was as high as 2.3 on her last admission on 10/04/2020. At this point, I will continue with the IV Lasix at the current dose and repeat labs in a.m. 2. Metabolic alkalosis secondary to diuretics, add Diamox if worse. 3. Chronic hypotension maintained on midodrine. 4. Hypokalemia secondary to diuretics, currently being replaced. 5. Bacteremia with blood culture growing coagulase-negative Staph one out of two, possible contaminant. PLAN: Continue with the Lasix. Add Diamox if metabolic alkalosis is worse and repeat labs in a.m. MMODL / IJN: [id number] /
[2020-10-18] MEDS: POTASSIUM CHLORIDE ER 20 MEQ TAB.ER PO SCH (14:55)
--- NOTE | 2020-10-18 16:16 | P.PN ---
Subjective Progress Note Date: 10/18/20 The patient was seen at bedside and the she seems a bit more awake today per the patient nurse compared to yesterday. She could not tell me exactly what transpired and I felt she is slightly more awake today but she seemed about the same otherwise. Objective - Vital Signs Vital signs: Vital Signs Temp 97.7 F 10/18/20 08:00 Pulse 103 H 10/18/20 14:00 Resp 18 10/18/20 12:00 BP 109/62 10/18/20 12:00 Pulse Ox 92 L 10/18/20 12:00 Intake & Output 10/17/20 10/18/20 10/18/20 18:59 06:59 18:59 Output Total 2700 1050 1300 Balance -2700 -1050 -1300 Weight 101 kg Output: Urine 2700 1050 1300 Other: Voiding Method Indwelling Catheter Indwelling Catheter Indwelling Catheter - Exam GENERAL: The patient is morbid obese lying in bed and is moaning and seems to be in pain. INTEGUMENTARY: Lymphedema of all extremities (predominately lower extremities) NEUROLOGICAL: Limited because of patient cooperation. Higher mental function: The patient is drowsy but awakeable to voice. Is oriented to self. She is able to name objects such as pen and watch. She is able to follow some commands such as opening closing eyes and smiling to command. Cranial nerves: The pupils are round, equal and reactive to light. No facial weakness bilaterally. No dysarthria from limited language. Otherwise could not assess rest of crania nerves because of patient cooperation. Motor: Gait is deferred. The strength is only squeezing of hands. Otherwise was not moving any extremities and upon lifiting them she was moaning in pain. Cerebellum: Could not assess. Sensation: Could not assess. Reflexes (right/left): Could not assess since patient was in pain. Plantars are downgoing bilaterally. - Labs CBC & Chem 7: 10/18/20 08:04 10/18/20 08:04 Labs: Abnormal Lab Results - Last 24 Hours (Table) 10/17/20 10/18/20 10/18/20 Range/Units 16:50 08:04 08:04 Hgb 9.9 L (11.4-16.0) gm/dL Hct 32.2 L (34.0-46.0) % MCV 73.6 L (80.0-100.0) fL MCH 22.6 L (25.0-35.0) pg MCHC 30.7 L (31.0-37.0) g/dL RDW 19.0 H (11.5-15.5) % Lymphocytes # 0.4 L (1.0-4.8) k/uL Sodium (137-145) mmol/L Potassium (3.5-5.1) mmol/L Chloride (98-107) mmol/L Carbon Dioxide (22-30) mmol/L BUN (7-17) mg/dL Creatinine 1.56 H (0.52-1.04) mg/dL POC Glucose (mg/dL) 108 H (75-99) mg/dL Calcium (8.4-10.2) mg/dL Alkaline Phosphatase (38-126) U/L Total Protein (6.3-8.2) g/dL Albumin (3.5-5.0) g/dL 10/18/20 Range/Units 08:04 Hgb (11.4-16.0) gm/dL Hct (34.0-46.0) % MCV (80.0-100.0) fL MCH (25.0-35.0) pg MCHC (31.0-37.0) g/dL RDW (11.5-15.5) % Lymphocytes # (1.0-4.8) k/uL Sodium 134 L (137-145) mmol/L Potassium 3.0 L (3.5-5.1) mmol/L Chloride 89 L (98-107) mmol/L Carbon Dioxide 39 H (22-30) mmol/L BUN 41 H (7-17) mg/dL Creatinine 1.57 H (0.52-1.04) mg/dL POC Glucose (mg/dL) (75-99) mg/dL Calcium 8.2 L (8.4-10.2) mg/dL Alkaline Phosphatase 144 H (38-126) U/L Total Protein 5.8 L (6.3-8.2) g/dL Albumin 2.7 L (3.5-5.0) g/dL Microbiology - Last 24 Hours (Table) 10/15/20 16:07 Blood Culture Gram Stain - Preliminary Blood Blood Culture - Preliminary Coagulase Negative Staph Assessment and Plan Assessment: This is a 75-year-old woman with multiple medical problems that presents with generalized weakness. * Altered mental status due to multifactorial: Hypothermia, metabolic encephalopathy (Kidney insuffiency, mild elevated AST) Recurrent UTI, acute on chronic diastolic congestive heart failure. * Generalized weakness (for 2 weeks) is due to above and unlikely due to dilated ventricles of possible normal pressure hydrocephalus (she was evaluated for dilated ventricles on 04/22/2019) and was told to follow-up with neurosurgeon as outpatient and she notifed our team she did not want intervention at that time (not sure what transpired. * Acute Hypothermia---improved (unsure cause) * Acute on chronic kidney insufficiency * Mild elevated AST * Recurrent urinary tract infection is on Rocephin * History of lymphedema * Sick sinus syndrome with pacemaker * Diabetes mellitus * Fibromyalgia * History of iron deficiency anemia * History of hypothyroidism * Chronic atrial fibrillation on Eliquis Plan: CT of the head was done and it shows degenerative and nonspecific white matter changes most typical of remote ischemia with no acute hemorrhage or mass effect. Greater central component of ventricle dilation can be associated with normal pressure hydrocephalus, correlate clinically. TSH 7.15 which is high but the free T4 is 1.93 which is normal. CK level: 65 (normal). Urine analysis shows that the leukocyte esterase was moderate, urine bacteria was rare, urine white blood cells 8. Vitamin B12 is 582 on 10/01/2020 which is normal. Folate is 9 which is normal. This does not need to be repeated. Physical therapy and occupation therapy are consulted. Of note the patient was evaluated by neuro hospitalist (Dr. Morales) in our facility on 04/22/2019: Regarding the prominent looking ventricle and was told to follow-up with neurosurgeon as outpatient and notified the neurologist she was not inclined of surgical intervention. We will try to find out with the patient of what transpired. I attempted to contact the patient's via phone but no response. Will follow-up with the patient sporadically. The plan is discussed with the patient's nurse. Dr. Naranjo will take over coverage for neurology service starting tomorrow (10/19/2020). Vignesh Gutierrez M.D. Neuro-hospitalist Time with Patient: Less than 30
[2020-10-18 16:46] LABS: Glucose,Whole Blood 90 mg/dL (75-99)
--- NOTE | 2020-10-18 20:14 | PN ---
PROGRESS NOTE DATE OF SERVICE: 10/18/2020. REASON FOR FOLLOWUP: 1. UTI. 2. Positive blood culture. INTERVAL HISTORY: Patient is currently afebrile. The patient is more awake and alert. The patient is breathing comfortably. Denies any chest pain. Occasional cough. No abdominal pain or diarrhea. PHYSICAL EXAMINATION: Blood pressure 109/62 with a pulse of 103. Temperature 97.7. She is 92% on room air. GENERAL DESCRIPTION is an elderly female lying in bed in no distress. RESPIRATORY SYSTEM: Unlabored breathing. Clear to auscultation anteriorly. HEART S1, S2. Regular rate and rhythm. ABDOMEN: Soft, no tenderness. EXTREMITIES: No edema of the feet. LABS: Hemoglobin 9.9, white count 7.3, BUN of 41, creatinine 1.57. Blood culture finalized: Coagulase negative Staph. DIAGNOSTIC IMPRESSION AND PLAN: 1. Patient with positive blood culture with coagulase negative Staph, likely skin contaminant has been no clinical disease to go along with it. Vancomycin discontinued. 2. Patient with possible urinary tract infection, positive urinalysis, covered with Rocephin, to continue. 3. Continue supportive care. MMODL / IJN: [id number] /
[2020-10-18 20:59] LABS: Glucose,Whole Blood 76 mg/dL (75-99)
[2020-10-19 06:09] LABS: Glucose,Whole Blood 101 mg/dL (75-99)
[2020-10-19] MEDS: PANTOPRAZOLE 40 MG TABLET PO SCH (06:29)
[2020-10-19] MEDS: LEVOTHYROXINE 25 MCG TAB PO SCH (06:29)
[2020-10-19 08:00] LABS: Anisocytosis Slight; Basophils % (A) 0 %; Eosinophils # (A) 0.3 k/uL (0-0.7); Eosinophils % (A) 5 %; HCT 33.8 % (34.0-46.0); HGB 10.2 gm/dL (11.4-16.0); Hypochromasia Marked; Lymphocytes # (A) 0.3 k/uL (1.0-4.8); Lymphocytes % (A) 5 %; MCH 22.1 pg (25.0-35.0); MCHC 30.2 g/dL (31.0-37.0); MCV 73.3 fL (80.0-100.0); Mean Platelet Volume 7.5; Microcytosis Moderate; Monocytes # (A) 0.6 k/uL (0-1.0); Monocytes % (A) 8 %; Neutrophils # (A) 5.5 k/uL (1.3-7.7); Neutrophils % (A) 81 %; Platelet Count 162 k/uL (150-450); Poikilocytosis Slight; RDW 19.3 % (11.5-15.5); WBC 6.9 k/uL (3.8-10.6)
[2020-10-19 08:11] LABS: Albumin 2.9 g/dL (3.5-5.0); Calcium 8.2 mg/dL (8.4-10.2); Potassium 3.2 mmol/L (3.5-5.1); Total Bilirubin 1.3 mg/dL (0.2-1.3); Total Protein 6.1 g/dL (6.3-8.2)
[2020-10-19 08:16] LABS: Vancomycin,Random 15.8 ug/mL
[2020-10-19] MEDS: METOPROLOL TARTRATE 25 MG TAB PO SCH ×2 (09:18→20:25)
[2020-10-19] MEDS: FUROSEMIDE 10 MG/ML 4 ML VIAL IV SCH (09:18)
[2020-10-19] MEDS: APIXABAN 5 MG TAB PO SCH ×2 (09:18→20:25)
[2020-10-19] MEDS: MIDODRINE 5 MG TAB PO SCH ×2 (09:18→18:09)
--- NOTE | 2020-10-19 10:18 | P.PN ---
Subjective This is a pleasant 75-year-old female past medical history significant for chronic diastolic heart failure, sick sinus syndrome status post permanent pacemaker implantation, chronic persistent atrial fibrillation, CVA, diabetes mellitus and fibromyalgia. She follows in the office at Dr. Dr. Ruby. She is seen and examined sitting up in no acute distress. She continues to be maintained on IV diuretics. Urine output in the previous 24 hours 5100 mls. Blood pressure 113/66 heart rate 94 afebrile maintaining oxygen saturation on room air. Laboratory data reviewed, WBC 6.9, hemoglobin 10.2, platelets 162, sodium 136, potassium 3.2, creatinine 1.36. Currently maintained on Diamox 250 mg 3 times a day, Eliquis 5 mg twice a day, Lasix 40 mg IV twice a day and midodrine 10 mg 3 times a day. Most recent echocardiogram obtained August 2020 revealed preserved LV systolic function with ejection fraction 55-60%, moderate exam with peak LVOT gradient of 24 mmHg, severely dilated left atrium, moderate to severe aortic stenosis with a mean gradient of 20 mmHg, moderate mitral regurgitation, severe tricuspid regurgitation and severe pulmonary hypertension with RVSP of 89 mmHg. GENERAL: Well-appearing, well-nourished and in no acute distress. NECK: Supple without JVD or thyromegaly. LUNGS: Fine crackles at the base, no rhonchi or wheezes. Respiration equal and unlabored. No wheezes, rales or rhonchi. HEART: Regular rate and rhythm with systolic ejection murmur at the base and apex, no rubs or gallops. S1 and S2 heard. EXTREMITIES: Normal range of motion, bilateral lower extremity edema suggestive of lymphedmea. No clubbing or cyanosis. Peripheral pulses intact. ASSESSMENT Acute on chronic diastolic heart failure Generalized weakness Hypokalemia Chronic persistent atrial fibrillation on long-term anticoagulation Sick sinus syndrome status post permanent pacemaker implantation Chronic kidney disease Chronic lymphedema Urinary tract infection Gram-positive bacteremia Moderate mitral regurgitation Moderate aortic stenosis Pulmonary hypertension CVA Diabetes mellitus PLAN Patient seems to be improving. She is diuresing well on current dose of IV diuretics. Nephrology is following. Initiate Lopressor at 25 mg twice a day. Hold for systolic blood pressure less than 90 or heart rate of less than 55. Replace potassium per protocol. Follow renal functions and electrolytes in the morning. Further recommendations to follow based upon clinical course. Nurse Practitioner note has been reviewed, I agree with a documented findings and plan of care. Patient was seen and examined. Objective - Vital Signs Vital signs: Vital Signs Temp 97.9 F 10/19/20 04:00 Pulse 94 10/19/20 04:00 Resp 18 10/19/20 04:00 BP 113/66 10/19/20 04:00 Pulse Ox 97 10/19/20 08:34 Intake & Output 10/18/20 10/19/20 10/19/20 18:59 06:59 18:59 Intake Total 0 Output Total 1300 3800 Balance -1300 -3800 0 Weight 97 kg Intake: Oral 0 Output: Urine 1300 3800 Other: Voiding Method Indwelling Catheter Indwelling Catheter - Labs CBC & Chem 7: 10/19/20 07:23 10/19/20 07:23 Labs: Abnormal Lab Results - Last 24 Hours (Table) 10/19/20 10/19/20 10/19/20 Range/Units 06:08 07:23 07:23 Hgb 10.2 L (11.4-16.0) gm/dL Hct 33.8 L (34.0-46.0) % MCV 73.3 L (80.0-100.0) fL MCH 22.1 L (25.0-35.0) pg MCHC 30.2 L (31.0-37.0) g/dL RDW 19.3 H (11.5-15.5) % Lymphocytes # 0.3 L (1.0-4.8) k/uL Sodium 136 L (137-145) mmol/L Potassium 3.2 L (3.5-5.1) mmol/L Chloride 89 L (98-107) mmol/L Carbon Dioxide 40 H (22-30) mmol/L BUN 37 H (7-17) mg/dL Creatinine 1.36 H (0.52-1.04) mg/dL POC Glucose (mg/dL) 101 H (75-99) mg/dL Calcium 8.2 L (8.4-10.2) mg/dL Alkaline Phosphatase 148 H (38-126) U/L Total Protein 6.1 L (6.3-8.2) g/dL Albumin 2.9 L (3.5-5.0) g/dL Microbiology - Last 24 Hours (Table) 10/18/20 17:22 Urine Culture - Preliminary Urine,Catheterized 10/15/20 16:07 Blood Culture Gram Stain - Final Blood Blood Culture - Final Staphylococcus epidermidis
[2020-10-19 11:47] LABS: Glucose,Whole Blood 137 mg/dL (75-99)
[2020-10-19] MEDS: acetaZOLAMIDE 250 MG TAB PO SCH ×2 (12:52→20:25)
[2020-10-19] MEDS ORDERED: POTASSIUM CHLORIDE ER 20 MEQ TAB.ER PO STA (13:04)
--- NOTE | 2020-10-19 14:35 | PN ---
PROGRESS NOTE Patient is seen for followup for acute kidney injury on top of chronic kidney disease. She is currently being diuresed and renal function has improved. The patient is maintained on a small dose of IV Lasix 40 mg q.12 hours. PHYSICAL EXAMINATION: On examination today, blood pressure is 129/60, heart rate 109 per minute, she is afebrile. Examination of the heart S1, S2. Examination of the lungs, bilateral breath sounds are heard. Decreased breath sounds at bases. Abdomen is soft. Obese. Exam of lower extremities shows edema bilaterally, mostly chronic with evidence of lymphedema as well. CRITICAL CARE REGISTERED NURSE exam grossly intact. LAB: Show sodium 136, potassium 3.2, chloride 89. CO2 is 40, BUN 37, creatinine 1.36. ASSESSMENT: 1. Acute kidney injury associated with hypotension, currently improved. Patient remains on midodrine. She is being diuresed and renal function continues to improve. 2. Hypokalemia secondary to diuretics. Will replace. 3. Volume overload, status post Lasix drip during recent admission about a week ago with improvement in volume status. 4. Metabolic alkalosis secondary to diuretics. I will add Diamox. 5. Bacteremia with blood culture growing staphylococci epidermidis, maintained on antibiotics. It is resistant to oxacillin. The patient is being followed by Infectious Disease. PLAN: Replace potassium. Add Diamox. Continue with current dose of IV Lasix. Repeat labs in a.m. MMODL / IJN: [id number] /
--- NOTE | 2020-10-19 15:39 | P.PN ---
Subjective Progress Note Date: 10/19/20 Principal diagnosis: Altered mental status, hypothermia, metabolic encephalopathy, recurrent urinary tract infection, acute on chronic diastolic CHF This is a 75-year-old female with known history of multiple medical problems, patient was admitted to the hospital on 10/01/2020, and she was discharged on 10/09/19. Patient had on the last admission acute exacerbation of diastolic congestive heart failure, and she was treated with Lasix drip. Patient also had severe lymphedema, chronic atrial fibrillation and maintained on eliquis. History of hypertension, [id number] diabetes, hypothyroidism, and she had on the last admission acute urinary tract infection treated with Rocephin. After 8 days of hospitalization, patient was discharged to [facility] [place] for rehab. And the patient was therefore less than 48 hours, then she left AGAINST MEDICAL ADVICE. At home, her condition continued to deteriorate, and she was becoming more and more confused. She was brought into the ER, noted to be hypothermic, and her chest x-ray showed evidence of congestive heart failure. Considering her abnormal chest x-ray, this consult was initiated. I saw the patient, she is presently on room air O2 saturation is 94%, patient is confused, cannot give any history, but does not seem to be in distress, she looks frail and chronically ill. But again no evidence of respiratory distress. Chest x- ray was reviewed, and I have recommended placing the patient back on Lasix IV push. ABC on admission was normal except for hemoglobin of 10.7. Electrolytes showed low potassium of 3.4, she had elevated bicarb of 38, elevated BUN of 42 creatinine 1.59, her creatinine the day of discharge was 1.9 and it was mostly in the range of 1.4 up to 2.2. Urinalysis showed evidence of minimal bacteriuria and minimal pyuria. Patient was recently treated for UTI with Rocephin. Her BNP level was elevated at 3500. Serum cortisol level is 18 and her TSH was elevated with relatively normal T4. Patient was reevaluated today on 10/17/2020, patient is a bit somnolent, arousable, basically not much different from yesterday. She is on room air, denies any specific complaints, but she looks generally weak and frail. Her O2 saturations 95% on room air. And neurological consultation is pending regarding the questionable normal pressure hydrocephalus as noted on the CT of the brain. Labs were reviewed CBC is relatively normal lites are normal except for low potassium of 3.1 renal functioning is slightly better with creatinine of 1.75 today, compared to yesterday was 1.80. No chest x-ray was ordered for today, I did order a chest x-ray to be done tomorrow and compared to her admission chest x-ray patient remains on diuretics/Lasix 40 mg IV push every 12 hours. The preliminary report on the blood culture is showing gram-positive cocci in clusters. Hence the patient is now on vancomycin empirically. She is also on Rocephin On today's evaluation of 10/18/2020, the patient is lethargic and sleepy. -2.6 L for yesterday and the patient is receiving Lasix 40 mg every 12 hours. She is producing adequate amount of urine output. Creatinine is down to 1.5. She is currently on room air oxygen. No chest pain. No significant signs of any shortness of breath. Her pulse ox is 92% on room air oxygen. She is normothermic for now. The blood culture came back positive for coagulase- negative staph which is probably contaminant. The patient is on vancomycin empirically that can be discontinued and the patient is also on IV Rocephin.. The follow-up chest x-ray showing improvement in the volume status and a perihilar infiltrate described earlier. She still has cardiomegaly and she also has a pacemaker over the left anterior chest area. Creatinine is improving is currently down to 1.5. On 10/19/2020 patient seen in follow-up on [facility] care floor, she is resting comfortably in bed, she is breathing comfortably, currently room air pulse ox is 97%, she is not on any IV fluids or medications, no cough, no chest pain, her blood culture showed Staphylococcus epidermidis, urine culture is pending, patient is currently on Rocephin, and vancomycin. No leukocytosis and today's labs, a little, 6.9, hemoglobin is 10.2, potassium was 3.2, CO2 was 40, chloride was 89, BUN is 37, creatinine is 1.36. Patient continues on diuretics, she has been diuresing extensively, she is in -5.1 L over the last 24 hours, and patient has been diuresing quite extensively, denies any shortness of breath, lung sounds are clear, lower extremity edema has significantly improved. Objective - Vital Signs Vital signs: Vital Signs Temp 97.1 F L 10/19/20 08:00 Pulse 88 10/19/20 12:00 Resp 18 10/19/20 08:00 BP 129/56 10/19/20 12:00 Pulse Ox 90 L 10/19/20 12:00 Intake & Output 10/18/20 10/19/20 10/19/20 18:59 06:59 18:59 Intake Total 0 Output Total 1300 3800 1200 Balance -1300 -3800 -1200 Weight 97 kg Intake: Oral 0 Output: Urine 1300 3800 1200 Other: Voiding Method Indwelling Catheter Indwelling Catheter Indwelling Catheter - Exam GENERAL EXAM: Alert, very pleasant, 75-year-old white female, on room air, with a pulse ox of 97% comfortable in no apparent distress. HEAD: Normocephalic/atraumatic. EYES: Normal reaction of pupils, equal size. Conjunctiva pink, sclera white. NOSE: Clear with pink turbinates. THROAT: No erythema or exudates. NECK: No masses, no JVD, no thyroid enlargement, no adenopathy. CHEST: No chest wall deformity. Symmetrical expansion. LUNGS: Equal air entry with no crackles, wheeze, rhonchi or dullness. CVS: Regular rate and rhythm, normal S1 and S2, no gallops, no murmurs, no rubs ABDOMEN: Soft, nontender. No hepatosplenomegaly, normal bowel sounds, no guarding or rigidity. EXTREMITIES: No clubbing, chronic lower extremity edema, and chronic thickening of skin and chronic venous stasis changes in lower extremities, edema has improved after extensive diuresis and there is some wrinkles on her skin, no cyanosis, 2+ pulses and upper and lower extremities. MUSCULOSKELETAL: Muscle strength and tone normal. SPINE: No scoliosis or deformity SKIN: No rashes CENTRAL NERVOUS SYSTEM: Alert and oriented -3. No focal deficits, tone is normal in all 4 extremities. PSYCHIATRIC: Alert and oriented -3. Appropriate affect. Intact judgment and insight. - Labs CBC & Chem 7: 10/19/20 07:23 10/19/20 07:23 Labs: Abnormal Lab Results - Last 24 Hours (Table) 10/19/20 10/19/20 10/19/20 Range/Units 06:08 07:23 07:23 Hgb 10.2 L (11.4-16.0) gm/dL Hct 33.8 L (34.0-46.0) % MCV 73.3 L (80.0-100.0) fL MCH 22.1 L (25.0-35.0) pg MCHC 30.2 L (31.0-37.0) g/dL RDW 19.3 H (11.5-15.5) % Lymphocytes # 0.3 L (1.0-4.8) k/uL Sodium 136 L (137-145) mmol/L Potassium 3.2 L (3.5-5.1) mmol/L Chloride 89 L (98-107) mmol/L Carbon Dioxide 40 H (22-30) mmol/L BUN 37 H (7-17) mg/dL Creatinine 1.36 H (0.52-1.04) mg/dL POC Glucose (mg/dL) 101 H (75-99) mg/dL Calcium 8.2 L (8.4-10.2) mg/dL Alkaline Phosphatase 148 H (38-126) U/L Total Protein 6.1 L (6.3-8.2) g/dL Albumin 2.9 L (3.5-5.0) g/dL 10/19/20 Range/Units 11:45 Hgb (11.4-16.0) gm/dL Hct (34.0-46.0) % MCV (80.0-100.0) fL MCH (25.0-35.0) pg MCHC (31.0-37.0) g/dL RDW (11.5-15.5) % Lymphocytes # (1.0-4.8) k/uL Sodium (137-145) mmol/L Potassium (3.5-5.1) mmol/L Chloride (98-107) mmol/L Carbon Dioxide (22-30) mmol/L BUN (7-17) mg/dL Creatinine (0.52-1.04) mg/dL POC Glucose (mg/dL) 137 H (75-99) mg/dL Calcium (8.4-10.2) mg/dL Alkaline Phosphatase (38-126) U/L Total Protein (6.3-8.2) g/dL Albumin (3.5-5.0) g/dL Microbiology - Last 24 Hours (Table) 10/18/20 17:22 Urine Culture - Preliminary Urine,Catheterized 10/15/20 16:07 Blood Culture Gram Stain - Final Blood Blood Culture - Final Staphylococcus epidermidis Assessment and Plan Plan: Assessment: #1. Altered mental status, multifactorial, related to metabolic encephalopathy, hypothermia, acute kidney injury, recurrent urinary tract infection, and acute exacerbation of chronic diastolic CHF #2. Generalized weakness, possible normal pressure hydrocephalus, and patient is to have outpatient follow-up with the neurosurgeon #3. Acute on chronic diastolic CHF patient has been diuresed sufficiently, we'll contact the diuretics #4. Chronic kidney disease stage III #5. Recurrent urinary tract infection #6. History of lymphedema #7. History of hypothyroidism #8. Chronic A. fib on Eliquis #9. Gram-positive bacteremia, coag-negative staph #10. Acute hypothermia, has improved #11. Sick sinus syndrome with a pacemaker insertion #12. Fibromyalgia #13. Iron deficiency anemia #14. Hypothyroidism Plan: We'll contact IV diuretics, we'll transition to oral Lasix 40 mg daily, she is on room air, no worsening dyspnea, renal profile is improving, vital signs have been stable, she continues on antibiotics, awaiting final urine culture, from pulmonary perspective she could be considered for discharge home today or tomorrow. We will continue to follow I performed a history & physical examination of the patient and discussed their management with my nurse practitioner, Imelda Navarro. I reviewed the nurse practitioner's note and agree with the documented findings and plan of care. Lung sounds are positive for diminished breath sounds. The findings and the impression was discussed with the patient. I attest to the documentation by the nurse practitioner. Time with Patient: Less than 30
[2020-10-19 16:40] LABS: Glucose,Whole Blood 87 mg/dL (75-99)
[2020-10-19 16:40] LABS: Glucose,Whole Blood 89 mg/dL (75-99)
[2020-10-19] MEDS ORDERED: Potassium Replacement Protocol 1 EACH MISC MISCELLANE PRN (16:50)
--- NOTE | 2020-10-19 16:52 | P.PN ---
Subjective Progress Note Date: 10/19/20 This is a 75-year-old female patient presented to the ER with complaints of generalized weakness. Patient was recently admitted for CHF and was on Lasix drip was DC'd to [facility] for rehab. It is reported that patient was there less than 48 hours and then left AMA. Per patient had been continued to decline at home. Patient has a past medical history of CHF, CVA, diabetes mellitus, fibromyalgia, osteoporosis, pneumonia and dementia. Patient does appear more confused than baseline. Urinary analysis positive for UTI patient started on Rocephin. Patient was hypothermic upon admission. Temperature has since improved. Patient will pressure also well Lopressor on hold. At this time will consult cardiology services due to and known CHF. PT OT consulted social consulted for discharge planning. Rocephin added for urinary tract infection. Patient denies any specific complaints. Denies chest pain. Reports chronic shortness of breath. Patient denies nausea vomiting or diarrhea. Patient denies any urinary burning or frequency. On 10/17/2020 patient was seen and examined on the telemetry floor she is somnolent and arousable and answers few questions and closes her eyes she is complaining of pain all over otherwise she is denying any complaints, her vital examination reveals a temperature of 97.4 pulse 90 respiration 18 blood pressure 118/72 pulse ox 95% on room air, computed tomography scan of the brain reviewed, there is possible normal pressure hydrocephalus, consultation for neurology was initiated in regard to depressed mental status and abnormal computed tomography scan of the brain, input from nephrology and pulmonary was reviewed. On 10/18/2020 patient is resting comfortably in bed. Patient remains somnolent but is arousable and answers questions at times. Creatinine trending down to 1.57 and bun 41. Potassium remains low at 3.0 placed per protocol. Patient remains on vancomycin. Critical care, infectious disease, nephrology services, cardiology and neurology services are following. Vitals at this time remain stable On 10/19/2020 patient was seen and examined on the medical floor she is alert and oriented 3 in no apparent distress there is no fever or chills no headache or dizziness no chest pain no shortness of breath no cough no nausea or vomiting no abdominal pain no diarrhea no blood in the stools no burning with urination no frequency or urgency and no hematuria she still has significant bilateral lower extremity edema Objective - Vital Signs Vital signs: Vital Signs Temp 97.9 F 10/19/20 04:00 Pulse 94 10/19/20 04:00 Resp 18 10/19/20 04:00 BP 113/66 10/19/20 04:00 Pulse Ox 97 10/19/20 08:34 Intake & Output 10/18/20 10/19/20 10/19/20 18:59 06:59 18:59 Intake Total 0 Output Total 1300 3800 Balance -1300 -3800 0 Weight 97 kg Intake: Oral 0 Output: Urine 1300 3800 Other: Voiding Method Indwelling Catheter Indwelling Catheter - Exam In general patient is somnolent responsive in no apparent distress Head normocephalic and atraumatic Neck supple no JVD no goiter Lungs clear to auscultation bilaterally no wheezing or crackles Heart regular rate and rhythm S1-S2, no rub or gallop Abdomen is soft nontender nondistended positive bowel sounds no hep atosplenomegaly Extremities mild edema no cyanosis or clubbing Neuro mental status as above otherwise no gross focal neurological deficit - Labs CBC & Chem 7: 10/19/20 07:23 10/19/20 07:23 Labs: Abnormal Lab Results - Last 24 Hours (Table) 10/18/20 10/18/20 10/19/20 Range/Units 08:04 08:04 06:08 Hgb 9.9 L (11.4-16.0) gm/dL Hct 32.2 L (34.0-46.0) % MCV 73.6 L (80.0-100.0) fL MCH 22.6 L (25.0-35.0) pg MCHC 30.7 L (31.0-37.0) g/dL RDW 19.0 H (11.5-15.5) % Lymphocytes # 0.4 L (1.0-4.8) k/uL Sodium 134 L (137-145) mmol/L Potassium 3.0 L (3.5-5.1) mmol/L Chloride 89 L (98-107) mmol/L Carbon Dioxide 39 H (22-30) mmol/L BUN 41 H (7-17) mg/dL Creatinine 1.57 H (0.52-1.04) mg/dL POC Glucose (mg/dL) 101 H (75-99) mg/dL Calcium 8.2 L (8.4-10.2) mg/dL Alkaline Phosphatase 144 H (38-126) U/L Total Protein 5.8 L (6.3-8.2) g/dL Albumin 2.7 L (3.5-5.0) g/dL 10/19/20 10/19/20 Range/Units 07:23 07:23 Hgb 10.2 L (11.4-16.0) gm/dL Hct 33.8 L (34.0-46.0) % MCV 73.3 L (80.0-100.0) fL MCH 22.1 L (25.0-35.0) pg MCHC 30.2 L (31.0-37.0) g/dL RDW 19.3 H (11.5-15.5) % Lymphocytes # 0.3 L (1.0-4.8) k/uL Sodium 136 L (137-145) mmol/L Potassium 3.2 L (3.5-5.1) mmol/L Chloride 89 L (98-107) mmol/L Carbon Dioxide 40 H (22-30) mmol/L BUN 37 H (7-17) mg/dL Creatinine 1.36 H (0.52-1.04) mg/dL POC Glucose (mg/dL) (75-99) mg/dL Calcium 8.2 L (8.4-10.2) mg/dL Alkaline Phosphatase 148 H (38-126) U/L Total Protein 6.1 L (6.3-8.2) g/dL Albumin 2.9 L (3.5-5.0) g/dL Microbiology - Last 24 Hours (Table) 10/15/20 16:07 Blood Culture Gram Stain - Final Blood Blood Culture - Final Staphylococcus epidermidis Assessment and Plan Assessment: 1. Generalized weakness. 2. Acute Hypothermia. Resolved. 3. Hypotension. Beta tanya currently on hold. Cardiology service is consulted 4. Acute on chronic diastolic congestive heart failure. 2-D echo recently completed showing EF of 55-60%. Cardiology services have been consulted. Patient remains on IV Lasix 5. Severe worsening lymphedema. Patient recently evaluated by vascular surgery no surgical intervention recommended 6. chronic kidney disease stage III. Creatinine 1.59 and bun 42. Nephrology services consulted 7. Urinary tract infection. Patient started on Rocephin. Urine culture ordered 8. History of gout 9. Hypothyroidism. Patient had elevated TSH last week was started on Synthroid. TSH remains elevated but continue current dose 10. History of persistent atrial fibrillation. Patient is maintained on eliquis 11. Abnormal computed tomography scan of the brain and mental status changes neurology consultation has been requested. Neurology services are following 12. Gram-positive bacteremia. Coagulase-negative staph. Patient remains on vancomycin. Infectious disease is following repeat cultures have been ordered 13. Sick sinus syndrome with pacemaker insertion 14. Hypokalemia likely secondary to diuretics. Replacement protocol DVT prophylaxis eliquis. GI prophylaxis Protonix PT OT is consulted Social consulted for discharge planning Cardiology, nephrology, infectious disease, neurology and critical care service following
[2020-10-19 20:44] LABS: Glucose,Whole Blood 107 mg/dL (75-99)
--- NOTE | 2020-10-19 21:45 | PN ---
PROGRESS NOTE DATE OF SERVICE: 10/19/2020 REASON FOR FOLLOWUP: 1. Positive blood culture. 2. UTI. INTERVAL HISTORY: The patient is currently afebrile. The patient is slightly more awake and alert today, breathing comfortably. Denies having any chest pain or cough. No abdominal pain or diarrhea. PHYSICAL EXAMINATION: Blood pressure 122/61, pulse of 94, temperature 98. She is 98% on room air. General description is an elderly female lying in bed in no distress. RESPIRATORY SYSTEM: Unlabored breathing. Clear to auscultation anteriorly. HEART: S1, S2. Regular rate and rhythm. ABDOMEN: Soft. No tenderness. LABS: Hemoglobin is 10.2, white count 6.9, BUN of 37, creatinine is 1.36. DIAGNOSTIC IMPRESSION AND PLAN: 1. Patient with a positive blood culture, Staphylococcus epidermidis, likely skin contaminant. The patient has no clinical disease to go along with it. Currently off the vancomycin. 2. Patient with urinary tract infection, covered with Rocephin while waiting for the culture to finalize. Continue with supportive care. MMODL / IJN: [id number] /
[2020-10-20 06:32] LABS: Glucose,Whole Blood 94 mg/dL (75-99)
[2020-10-20] MEDS: MIDODRINE 5 MG TAB PO SCH ×4 (06:35→23:09)
[2020-10-20] MEDS: LEVOTHYROXINE 25 MCG TAB PO SCH (06:37)
[2020-10-20] MEDS: PANTOPRAZOLE 40 MG TABLET PO SCH (06:37)
[2020-10-20 08:08] LABS: Anisocytosis Slight; Basophils % (A) 0 %; Eosinophils # (A) 0.4 k/uL (0-0.7); Eosinophils % (A) 6 %; HCT 37.1 % (34.0-46.0); Hypochromasia Marked; Lymphocytes # (A) 0.4 k/uL (1.0-4.8); Lymphocytes % (A) 6 %; MCH 22.1 pg (25.0-35.0); MCHC 29.5 g/dL (31.0-37.0); MCV 74.8 fL (80.0-100.0); Mean Platelet Volume 7.8; Microcytosis Moderate; Monocytes # (A) 0.5 k/uL (0-1.0); Monocytes % (A) 8 %; Neutrophils # (A) 5.4 k/uL (1.3-7.7); Neutrophils % (A) 79 %; Platelet Count 170 k/uL (150-450); Poikilocytosis Slight; RBC 4.97 m/uL (3.80-5.40); RDW 19.7 % (11.5-15.5); WBC 6.8 k/uL (3.8-10.6)
[2020-10-20 08:31] LABS: Calcium 8.2 mg/dL (8.4-10.2); Potassium 3.2 mmol/L (3.5-5.1); Total Bilirubin 1.5 mg/dL (0.2-1.3); Total Protein 6.2 g/dL (6.3-8.2)
[2020-10-20] MEDS ORDERED: Potassium Replacement Protocol 1 EACH MISC MISCELLANE PRN ×2 (09:01→18:25)
[2020-10-20 09:07] LABS: C Reactive Protein 14.4 mg/L (<10.0)
[2020-10-20] MEDS: acetaZOLAMIDE 250 MG TAB PO SCH ×2 (09:13→19:50)
[2020-10-20] MEDS: METOPROLOL TARTRATE 25 MG TAB PO SCH ×2 (09:13→19:49)
[2020-10-20] MEDS: FUROSEMIDE 40 MG TAB PO SCH (09:13)
[2020-10-20] MEDS: POTASSIUM CHLORIDE ER 20 MEQ TAB.ER PO SCH ×4 (09:13→19:51)
[2020-10-20] MEDS: APIXABAN 5 MG TAB PO SCH ×2 (09:13→19:51)
[2020-10-20 11:34] LABS: Glucose,Whole Blood 85 mg/dL (75-99)
--- NOTE | 2020-10-20 13:01 | P.PN ---
Subjective Progress Note Date: 10/20/20 Patient was seen for a follow-up. Patient seen initially by Dr. Yifan Gutierrez. Please refer to his note for details. Patient is laying comfortably in the bed. Patient appears to be encephalopathic, slow mentation, prolonged latency tend to answer questions. Denies headache. Offers no complaints. Telemetry monitoring showing atrial fibrillation with maximum heart rate and 110. Objective - Vital Signs Vital signs: Vital Signs Temp 97.5 F L 10/20/20 04:00 Pulse 86 10/20/20 04:00 Resp 16 10/20/20 04:00 BP 114/75 10/20/20 04:00 Pulse Ox 93 L 10/20/20 08:14 Intake & Output 10/19/20 10/20/20 10/20/20 18:59 06:59 18:59 Intake Total 0 100 0 Output Total 2500 650 850 Balance -2500 -550 -850 Weight 94 kg Intake: Oral 0 100 0 Output: Urine 2500 650 850 Other: Voiding Method Indwelling Catheter Indwelling Catheter - Exam On examination patient is an elderly female, in no acute distress. Patient is awake, but appears slightly encephalopathic, slightly somnolent, prolonged latency time to answer questions. Patient knows that she is in [facility]. Then she states that she is in Dr. Krause's office. She states it is January 2021 and it is summer season. Patient can name and repeat very well. Her speech and language functions are normal. On cranial exam showed pupils are round and reactive to light, visual srivastava reveal normal visual srivastava on the right side. However she does blink to visual threat on the left side. Patient was not consistent with her exam. Face is symmetric, tongue protrudes to the midline. Hearing is decreased. Shoulder shrug normal. On muscle strength testing, strength is normal in the arms distally and proximally. Patient has severe lymphedema of bilateral lower limbs. She can wiggle her feet. She has significant peripheral edema, tender lower limbs. Reflexes are diminished. Sensations are equal. Cerebellar functions could not be assessed. - Labs CBC & Chem 7: 10/20/20 07:07 10/20/20 07:07 Labs: Abnormal Lab Results - Last 24 Hours (Table) 10/19/20 10/20/20 10/20/20 Range/Units 20:42 07:07 07:07 Hgb (11.4-16.0) gm/dL MCV (80.0-100.0) fL MCH (25.0-35.0) pg MCHC (31.0-37.0) g/dL RDW (11.5-15.5) % Lymphocytes # (1.0-4.8) k/uL Sodium 133 L (137-145) mmol/L Potassium 3.2 L (3.5-5.1) mmol/L Chloride 90 L (98-107) mmol/L Carbon Dioxide 35 H (22-30) mmol/L BUN 31 H (7-17) mg/dL Creatinine 1.49 H 1.46 H (0.52-1.04) mg/dL POC Glucose (mg/dL) 107 H (75-99) mg/dL Calcium 8.2 L (8.4-10.2) mg/dL Total Bilirubin 1.5 H (0.2-1.3) mg/dL AST 44 H (14-36) U/L Alkaline Phosphatase 151 H (38-126) U/L C-Reactive Protein 14.4 H (<10.0) mg/L Total Protein 6.2 L (6.3-8.2) g/dL Albumin 3.0 L (3.5-5.0) g/dL 10/20/20 Range/Units 07:07 Hgb 11.0 L (11.4-16.0) gm/dL MCV 74.8 L (80.0-100.0) fL MCH 22.1 L (25.0-35.0) pg MCHC 29.5 L (31.0-37.0) g/dL RDW 19.7 H (11.5-15.5) % Lymphocytes # 0.4 L (1.0-4.8) k/uL Sodium (137-145) mmol/L Potassium (3.5-5.1) mmol/L Chloride (98-107) mmol/L Carbon Dioxide (22-30) mmol/L BUN (7-17) mg/dL Creatinine (0.52-1.04) mg/dL POC Glucose (mg/dL) (75-99) mg/dL Calcium (8.4-10.2) mg/dL Total Bilirubin (0.2-1.3) mg/dL AST (14-36) U/L Alkaline Phosphatase (38-126) U/L C-Reactive Protein (<10.0) mg/L Total Protein (6.3-8.2) g/dL Albumin (3.5-5.0) g/dL Microbiology - Last 24 Hours (Table) 10/18/20 17:22 Urine Culture - Preliminary Urine,Catheterized Assessment and Plan Assessment: * Altered mental status, likely due to metabolic encephalopathy. * Recurrent UTIs * Acute on chronic diastolic congestive heart failure * Renal insufficiency * History of lymphedema of bilateral lower limbs * History of sick sinus syndrome with pacemaker. * Atrial fibrillation on Eliquis * Diabetes * Hypothyroidism Plan: * CT had revealed degenerative and nonspecific white matter changes most typical of remote ischemia with no acute ischemic process. Greater central component of ventricular dilation can be associated with normal pressure hydrocephalus, correlate clinically. Suggest follow-up with a neurosurgeon as an outpatient. Patient does not appear to be a good candidate for ventriculoperitoneal shunting related to her severe lymphedema. * Medical management as per IM. * Patient's previous carotid Doppler from 01/20/2019 showed mild degree of grayscale atheromatous plaquing with no significant hemodynamic stenosis within either visualized carotid arterial system. * Continue Eliquis for atrial fibrillation. * B12 582, folate 9.0, TSH 7.150 with free T4 1.93. IM to address hypothyroidism. * Please reconsult neurology if any further concerns. Will sign off.
--- NOTE | 2020-10-20 13:37 | P.PN ---
Subjective This is a pleasant 75-year-old female past medical history significant for chronic diastolic heart failure, sick sinus syndrome status post permanent pacemaker implantation, chronic persistent atrial fibrillation, CVA, diabetes mellitus and fibromyalgia. She follows in the office at Dr. Dr. Ruby. She is seen and examined sitting up in no acute distress. She continues to be maintained on IV diuretics. Urine output in the previous 24 hours 5100 mls. Blood pressure 113/66 heart rate 94 afebrile maintaining oxygen saturation on room air. Laboratory data reviewed, WBC 6.9, hemoglobin 10.2, platelets 162, sodium 136, potassium 3.2, creatinine 1.36. Currently maintained on Diamox 250 mg 3 times a day, Eliquis 5 mg twice a day, Lasix 40 mg IV twice a day and midodrine 10 mg 3 times a day. Most recent echocardiogram obtained August 2020 revealed preserved LV systolic function with ejection fraction 55-60%, moderate exam with peak LVOT gradient of 24 mmHg, severely dilated left atrium, moderate to severe aortic stenosis with a mean gradient of 20 mmHg, moderate mitral regurgitation, severe tricuspid regurgitation and severe pulmonary hypertension with RVSP of 89 mmHg. 10/20/2020 Patient seen and examined sitting up in bed in no acute distress. She denies any symptoms of worsening shortness of breath. Overall she states she is feeling better. She has no chest pain, dizziness or palpitations. Blood pressure 118/58 heart rate 83 afebrile maintaining oxygen saturation on room air. Laboratory data reviewed, WBC 6.8, hemoglobin 11, platelets 170, sodium 133, potassium 3.2 and creatinine 1.46. GENERAL: Well-appearing, well-nourished and in no acute distress. NECK: Supple without JVD or thyromegaly. LUNGS: Clear to auscultation bilaterally, no rales, rhonchi or wheezes. Respiration equal and unlabored. Diminished bilaterally. HEART: Regular rate and rhythm with systolic ejection murmur at the base and apex, no rubs or gallops. S1 and S2 heard. EXTREMITIES: Normal range of motion, bilateral lower extremity edema suggestive of lymphedmea. No clubbing or cyanosis. Peripheral pulses intact. ASSESSMENT Acute on chronic diastolic heart failure Generalized weakness Hypokalemia Chronic persistent atrial fibrillation on long-term anticoagulation Sick sinus syndrome status post permanent pacemaker implantation Chronic kidney disease Chronic lymphedema Urinary tract infection Gram-positive bacteremia Moderate mitral regurgitation Moderate aortic stenosis Pulmonary hypertension CVA Diabetes mellitus PLAN Replace potassium per protocol. She has been transitioned to oral diuretics per pulmonary. Nurse Practitioner note has been reviewed, I agree with a documented findings and plan of care. Patient was seen and examined. Objective - Vital Signs Vital signs: Vital Signs Temp 97.1 F L 10/20/20 08:00 Pulse 83 10/20/20 12:00 Resp 16 10/20/20 04:00 BP 118/58 10/20/20 12:00 Pulse Ox 91 L 10/20/20 12:00 Intake & Output 10/19/20 10/20/20 10/20/20 18:59 06:59 18:59 Intake Total 0 100 0 Output Total 2500 650 850 Balance -2500 -550 -850 Weight 94 kg Intake: Oral 0 100 0 Output: Urine 2500 650 850 Other: Voiding Method Indwelling Catheter Indwelling Catheter Indwelling Catheter - Labs CBC & Chem 7: 10/20/20 07:07 10/20/20 07:07 Labs: Abnormal Lab Results - Last 24 Hours (Table) 10/19/20 10/20/20 10/20/20 Range/Units 20:42 07:07 07:07 Hgb (11.4-16.0) gm/dL MCV (80.0-100.0) fL MCH (25.0-35.0) pg MCHC (31.0-37.0) g/dL RDW (11.5-15.5) % Lymphocytes # (1.0-4.8) k/uL Sodium 133 L (137-145) mmol/L Potassium 3.2 L (3.5-5.1) mmol/L Chloride 90 L (98-107) mmol/L Carbon Dioxide 35 H (22-30) mmol/L BUN 31 H (7-17) mg/dL Creatinine 1.49 H 1.46 H (0.52-1.04) mg/dL POC Glucose (mg/dL) 107 H (75-99) mg/dL Calcium 8.2 L (8.4-10.2) mg/dL Total Bilirubin 1.5 H (0.2-1.3) mg/dL AST 44 H (14-36) U/L Alkaline Phosphatase 151 H (38-126) U/L C-Reactive Protein 14.4 H (<10.0) mg/L Total Protein 6.2 L (6.3-8.2) g/dL Albumin 3.0 L (3.5-5.0) g/dL 10/20/20 Range/Units 07:07 Hgb 11.0 L (11.4-16.0) gm/dL MCV 74.8 L (80.0-100.0) fL MCH 22.1 L (25.0-35.0) pg MCHC 29.5 L (31.0-37.0) g/dL RDW 19.7 H (11.5-15.5) % Lymphocytes # 0.4 L (1.0-4.8) k/uL Sodium (137-145) mmol/L Potassium (3.5-5.1) mmol/L Chloride (98-107) mmol/L Carbon Dioxide (22-30) mmol/L BUN (7-17) mg/dL Creatinine (0.52-1.04) mg/dL POC Glucose (mg/dL) (75-99) mg/dL Calcium (8.4-10.2) mg/dL Total Bilirubin (0.2-1.3) mg/dL AST (14-36) U/L Alkaline Phosphatase (38-126) U/L C-Reactive Protein (<10.0) mg/L Total Protein (6.3-8.2) g/dL Albumin (3.5-5.0) g/dL Microbiology - Last 24 Hours (Table) 10/18/20 17:22 Urine Culture - Final Urine,Catheterized
--- NOTE | 2020-10-20 14:07 | PN ---
PROGRESS NOTE The patient is seen for followup for acute kidney injury on top of chronic kidney disease. She is currently being diuresed and renal function is stable with creatinine staying at 1.4-1.5 mg/dL. Overall patient states she is feeling weak, but denies any specific chest pains or shortness of breath. She had about 5 L of urine output yesterday. PHYSICAL EXAMINATION: On examination today, patient is comfortable. Blood pressure is 114/75, heart rate 86 per minute. She is afebrile. EXAMINATION OF THE HEART: S1, S2. EXAMINATION OF THE LUNGS: Decreased breath sounds at the bases. Abdomen is soft, obese. Examination lower extremities shows improved edema. Lymphedema is noted and there is edema in the upper and lower extremities. LABS: Labs show sodium 133, potassium 3.2, chloride 90, CO2 of 35, BUN 31, serum creatinine 1.46. ASSESSMENT: 1. Acute kidney injury mostly cardiorenal, currently improved. 2. Volume overload, significantly improved. Agree with switching to p.o. Lasix. Patient had about 5 L of urine output yesterday. 3. Hypokalemia secondary to diuretics, being replaced. 4. Chronic kidney disease secondary to nephrosclerosis NKF stage 3, with previous creatinine as low as 1.0 and 1.1 mg/dL. There was a time when creatinine was 0.8, but I believe that was when patient was severely volume overloaded. 5. Metabolic alkalosis secondary to diuresis, started on Diamox yesterday. PLAN: Discontinue Diamox tomorrow. Continue off of IV Lasix. Continue with p.o. Lasix for now. Replace potassium. Repeat labs in a.m. MMODL / IJN: [id number] /
--- NOTE | 2020-10-20 14:24 | P.PN ---
Subjective Progress Note Date: 10/20/20 Principal diagnosis: Altered mental status, hypothermia, metabolic encephalopathy, recurrent urinary tract infection, acute on chronic diastolic CHF This is a 75-year-old female with known history of multiple medical problems, patient was admitted to the hospital on 10/01/2020, and she was discharged on 10/09/19. Patient had on the last admission acute exacerbation of diastolic congestive heart failure, and she was treated with Lasix drip. Patient also had severe lymphedema, chronic atrial fibrillation and maintained on eliquis. History of hypertension, [id number] diabetes, hypothyroidism, and she had on the last admission acute urinary tract infection treated with Rocephin. After 8 days of hospitalization, patient was discharged to [facility] for rehab. And the patient was therefore less than 48 hours, then she left AGAINST MEDICAL ADVICE. At home, her condition continued to deteriorate, and she was becoming more and more confused. She was brought into the ER, noted to be hypothermic, and her chest x-ray showed evidence of congestive heart failure. Considering her abnormal chest x-ray, this consult was initiated. I saw the patient, she is presently on room air O2 saturation is 94%, patient is confused, cannot give any history, but does not seem to be in distress, she looks frail and chronically ill. But again no evidence of respiratory distress. Chest x- ray was reviewed, and I have recommended placing the patient back on Lasix IV push. ABC on admission was normal except for hemoglobin of 10.7. Electrolytes showed low potassium of 3.4, she had elevated bicarb of 38, elevated BUN of 42 creatinine 1.59, her creatinine the day of discharge was 1.9 and it was mostly in the range of 1.4 up to 2.2. Urinalysis showed evidence of minimal bacteriuria and minimal pyuria. Patient was recently treated for UTI with Rocephin. Her BNP level was elevated at 3500. Serum cortisol level is 18 and her TSH was elevated with relatively normal T4. Patient was reevaluated today on 10/17/2020, patient is a bit somnolent, arousable, basically not much different from yesterday. She is on room air, denies any specific complaints, but she looks generally weak and frail. Her O2 saturations 95% on room air. And neurological consultation is pending regarding the questionable normal pressure hydrocephalus as noted on the CT of the brain. Labs were reviewed CBC is relatively normal lites are normal except for low potassium of 3.1 renal functioning is slightly better with creatinine of 1.75 today, compared to yesterday was 1.80. No chest x-ray was ordered for today, I did order a chest x-ray to be done tomorrow and compared to her admission chest x-ray patient remains on diuretics/Lasix 40 mg IV push every 12 hours. The preliminary report on the blood culture is showing gram-positive cocci in clusters. Hence the patient is now on vancomycin empirically. She is also on Rocephin On today's evaluation of 10/18/2020, the patient is lethargic and sleepy. -2.6 L for yesterday and the patient is receiving Lasix 40 mg every 12 hours. She is producing adequate amount of urine output. Creatinine is down to 1.5. She is currently on room air oxygen. No chest pain. No significant signs of any shortness of breath. Her pulse ox is 92% on room air oxygen. She is normothermic for now. The blood culture came back positive for coagulase- negative staph which is probably contaminant. The patient is on vancomycin empirically that can be discontinued and the patient is also on IV Rocephin.. The follow-up chest x-ray showing improvement in the volume status and a perihilar infiltrate described earlier. She still has cardiomegaly and she also has a pacemaker over the left anterior chest area. Creatinine is improving is currently down to 1.5. On 10/19/2020 patient seen in follow-up on [facility] care floor, she is resting comfortably in bed, she is breathing comfortably, currently room air pulse ox is 97%, she is not on any IV fluids or medications, no cough, no chest pain, her blood culture showed Staphylococcus epidermidis, urine culture is pending, patient is currently on Rocephin, and vancomycin. No leukocytosis and today's labs, a little, 6.9, hemoglobin is 10.2, potassium was 3.2, CO2 was 40, chloride was 89, BUN is 37, creatinine is 1.36. Patient continues on diuretics, she has been diuresing extensively, she is in -5.1 L over the last 24 hours, and patient has been diuresing quite extensively, denies any shortness of breath, lung sounds are clear, lower extremity edema has significantly improved. On 10-20-2020 patient seen in follow-up on selective care unit. She is doing much easier, she has been diuresed, she is actually looking a little bit dry on today's exam, she is on room air, denies any shortness of breath or chest pain. She is in -3 L over last 24 hours, lower and upper extremity edema has significantly improved, today's labs have been reviewed showing sodium of 133, potassium is 3.2, CO2 is 35, chloride is 90, creatinine is up slightly, at 1.46, and BUN is 31. Final blood culture came back positive for MSSA, vancomycin has been discontinued, patient is currently on ceftriaxone. No altered mentation, no fever or chills, patient was started on Diamox for metabolic alkalosis. Nephrology is following Objective - Vital Signs Vital signs: Vital Signs Temp 97.1 F L 10/20/20 08:00 Pulse 83 10/20/20 12:00 Resp 16 10/20/20 04:00 BP 118/58 10/20/20 12:00 Pulse Ox 91 L 10/20/20 12:00 Intake & Output 10/19/20 10/20/20 10/20/20 18:59 06:59 18:59 Intake Total 0 100 50 Output Total 2500 650 850 Balance -2500 -550 -800 Weight 94 kg Intake: Oral 0 100 50 Output: Urine 2500 650 850 Other: Voiding Method Indwelling Catheter Indwelling Catheter Indwelling Catheter - Exam GENERAL EXAM: Alert, very pleasant, 75-year-old white female, on room air, with a pulse ox of 93% comfortable in no apparent distress. HEAD: Normocephalic/atraumatic. EYES: Normal reaction of pupils, equal size. Conjunctiva pink, sclera white. NOSE: Clear with pink turbinates. THROAT: No erythema or exudates. NECK: No masses, no JVD, no thyroid enlargement, no adenopathy. CHEST: No chest wall deformity. Symmetrical expansion. LUNGS: Equal air entry with no crackles, wheeze, rhonchi or dullness. CVS: Regular rate and rhythm, normal S1 and S2, no gallops, no murmurs, no rubs ABDOMEN: Soft, nontender. No hepatosplenomegaly, normal bowel sounds, no guarding or rigidity. EXTREMITIES: No clubbing, chronic lower extremity edema, and chronic thickening of skin and chronic venous stasis changes in lower extremities, edema has imp roved after extensive diuresis and there is some wrinkles on her skin, no cyanosis, 2+ pulses and upper and lower extremities. MUSCULOSKELETAL: Muscle strength and tone normal. SPINE: No scoliosis or deformity SKIN: No rashes CENTRAL NERVOUS SYSTEM: Alert and oriented -3. No focal deficits, tone is normal in all 4 extremities. PSYCHIATRIC: Alert and oriented -3. Appropriate affect. Intact judgment and insight. - Labs CBC & Chem 7: 10/20/20 07:07 10/20/20 07:07 Labs: Abnormal Lab Results - Last 24 Hours (Table) 10/19/20 10/20/20 10/20/20 Range/Units 20:42 07:07 07:07 Hgb (11.4-16.0) gm/dL MCV (80.0-100.0) fL MCH (25.0-35.0) pg MCHC (31.0-37.0) g/dL RDW (11.5-15.5) % Lymphocytes # (1.0-4.8) k/uL Sodium 133 L (137-145) mmol/L Potassium 3.2 L (3.5-5.1) mmol/L Chloride 90 L (98-107) mmol/L Carbon Dioxide 35 H (22-30) mmol/L BUN 31 H (7-17) mg/dL Creatinine 1.49 H 1.46 H (0.52-1.04) mg/dL POC Glucose (mg/dL) 107 H (75-99) mg/dL Calcium 8.2 L (8.4-10.2) mg/dL Total Bilirubin 1.5 H (0.2-1.3) mg/dL AST 44 H (14-36) U/L Alkaline Phosphatase 151 H (38-126) U/L C-Reactive Protein 14.4 H (<10.0) mg/L Total Protein 6.2 L (6.3-8.2) g/dL Albumin 3.0 L (3.5-5.0) g/dL 10/20/20 Range/Units 07:07 Hgb 11.0 L (11.4-16.0) gm/dL MCV 74.8 L (80.0-100.0) fL MCH 22.1 L (25.0-35.0) pg MCHC 29.5 L (31.0-37.0) g/dL RDW 19.7 H (11.5-15.5) % Lymphocytes # 0.4 L (1.0-4.8) k/uL Sodium (137-145) mmol/L Potassium (3.5-5.1) mmol/L Chloride (98-107) mmol/L Carbon Dioxide (22-30) mmol/L BUN (7-17) mg/dL Creatinine (0.52-1.04) mg/dL POC Glucose (mg/dL) (75-99) mg/dL Calcium (8.4-10.2) mg/dL Total Bilirubin (0.2-1.3) mg/dL AST (14-36) U/L Alkaline Phosphatase (38-126) U/L C-Reactive Protein (<10.0) mg/L Total Protein (6.3-8.2) g/dL Albumin (3.5-5.0) g/dL Microbiology - Last 24 Hours (Table) 10/18/20 17:22 Urine Culture - Final Urine,Catheterized Assessment and Plan Plan: Assessment: #1. Altered mental status, multifactorial, related to metabolic encephalopathy, hypothermia, acute kidney injury, recurrent urinary tract infection, and acute exacerbation of chronic diastolic CHF. Recovered #2. Generalized weakness, possible normal pressure hydrocephalus, and patient is to have outpatient follow-up with the neurosurgeon #3. Acute on chronic diastolic CHF patient has been diuresed sufficiently, we'll contact the diuretics #4. Chronic kidney disease stage III #5. Recurrent urinary tract infection #6. History of lymphedema #7. History of hypothyroidism #8. Chronic A. fib on Eliquis #9. Gram-positive bacteremia, coag-negative staph #10. Acute hypothermia, has improved #11. Sick sinus syndrome with a pacemaker insertion #12. Fibromyalgia #13. Iron deficiency anemia #14. Hypothyroidism Plan: Patient is on room air, breathing easier, fluid volume status has significantly improved, patient has been transitioned to oral diuretics, nephrology is following, no worsening dyspnea, final blood culture showed MSSA, patient is on IV ceftriaxone, vancomycin has been discontinued. From pulmonary perspective patient could be considered for discharge back to ECF if cleared by medicine. I performed a history & physical examination of the patient and discussed their management with my nurse practitioner, Imelda Navarro. I reviewed the nurse practitioner's note and agree with the documented findings and plan of care. Lung sounds are positive for diminished breath sounds. The findings and the impression was discussed with the patient. I attest to the documentation by the nurse practitioner. Time with Patient: Less than 30
--- NOTE | 2020-10-20 15:40 | PN ---
PROGRESS NOTE DATE OF SERVICE: 10/20/2020 REASON FOR FOLLOWUP: Positive blood culture and UTI. INTERVAL HISTORY: The patient is currently afebrile. The patient seems to be slightly more awake and alert today, breathing comfortably. Denies having any chest pain or cough. No abdominal pain or pain to the left upper extremity, which is slightly swollen. PHYSICAL EXAMINATION: Her blood pressure is 118/58 with a pulse of 83, temperature 97.1. She is 91% on room air. General description is an elderly female up in the bed in no distress. RESPIRATORY SYSTEM: Unlabored breathing. Clear to auscultation anteriorly. HEART: S1, S2. Regular rate and rhythm. ABDOMEN: Soft. No tenderness. LABS: Hemoglobin is 11, white count 6.9, BUN of 31, creatinine 1.46. DIAGNOSTIC IMPRESSION AND PLAN: 1. Patient with positive blood culture with Staphylococcus epidermidis, likely contamination. Patient is currently off antibiotic therapy. Blood culture repeat has been ordered and will be followed. 2. Urinary tract infection, covered with Rocephin. Urine cultures came back negative. Rocephin can be discontinued on discharge. MMODL / IJN: [id number] /
[2020-10-20 16:39] LABS: Glucose,Whole Blood 80 mg/dL (75-99)
--- NOTE | 2020-10-20 18:24 | P.PN ---
Subjective Progress Note Date: 10/20/20 This is a 75-year-old female patient presented to the ER with complaints of generalized weakness. Patient was recently admitted for CHF and was on Lasix drip was DC'd to [facility] for rehab. It is reported that patient was there less than 48 hours and then left AMA. Per patient had been continued to decline at home. Patient has a past medical history of CHF, CVA, diabetes mellitus, fibromyalgia, osteoporosis, pneumonia and dementia. Patient does appear more confused than baseline. Urinary analysis positive for UTI patient started on Rocephin. Patient was hypothermic upon admission. Temperature has since improved. Patient will pressure also well Lopressor on hold. At this time will consult cardiology services due to and known CHF. PT OT consulted social consulted for discharge planning. Rocephin added for urinary tract infection. Patient denies any specific complaints. Denies chest pain. Reports chronic shortness of breath. Patient denies nausea vomiting or diarrhea. Patient denies any urinary burning or frequency. On 10/17/2020 patient was seen and examined on the telemetry floor she is somnolent and arousable and answers few questions and closes her eyes she is complaining of pain all over otherwise she is denying any complaints, her vital examination reveals a temperature of 97.4 pulse 90 respiration 18 blood pressure 118/72 pulse ox 95% on room air, computed tomography scan of the brain reviewed, there is possible normal pressure hydrocephalus, consultation for neurology was initiated in regard to depressed mental status and abnormal computed tomography scan of the brain, input from nephrology and pulmonary was reviewed. On 10/18/2020 patient is resting comfortably in bed. Patient remains somnolent but is arousable and answers questions at times. Creatinine trending down to 1.57 and bun 41. Potassium remains low at 3.0 placed per protocol. Patient remains on vancomycin. Critical care, infectious disease, nephrology services, cardiology and neurology services are following. Vitals at this time remain stable On 10/19/2020 patient was seen and examined on the medical floor she is alert and oriented 3 in no apparent distress there is no fever or chills no headache or dizziness no chest pain no shortness of breath no cough no nausea or vomiting no abdominal pain no diarrhea no blood in the stools no burning with urination no frequency or urgency and no hematuria she still has significant bilateral lower extremity edema On 10/20/2020 patient was seen and examined on the medical floor she is alert and oriented 3 in no distress there is no fever or chills no headache or dizziness no chest pain no cough . Her shortness of breath has improved significantly and lower extremity swelling has improved there is no nausea or vomiting no abdominal pain no diarrhea no blood in the stools no burning with urination no frequency or urgency and no hematuria Objective - Vital Signs Vital signs: Vital Signs Temp 97.1 F L 10/20/20 08:00 Pulse 83 10/20/20 12:00 Resp 16 10/20/20 04:00 BP 118/58 10/20/20 12:00 Pulse Ox 91 L 10/20/20 12:00 Intake & Output 10/19/20 10/20/20 10/20/20 18:59 06:59 18:59 Intake Total 0 100 550 Output Total 2500 650 2150 Balance -2500 -550 -1600 Weight 94 kg Intake: Oral 0 100 550 Output: Urine 2500 650 2150 Other: Voiding Method Indwelling Catheter Indwelling Catheter Indwelling Catheter - Exam In general patient is somnolent responsive in no apparent distress Head normocephalic and atraumatic Neck supple no JVD no goiter Lungs clear to auscultation bilaterally no wheezing or crackles Heart regular rate and rhythm S1-S2, no rub or gallop Abdomen is soft nontender nondistended positive bowel sounds no hepatosplenomegaly Extremities mild edema no cyanosis or clubbing Neuro mental status as above otherwise no gross focal neurological deficit - Labs CBC & Chem 7: 10/20/20 07:07 10/20/20 14:24 Labs: Abnormal Lab Results - Last 24 Hours (Table) 10/19/20 10/20/20 10/20/20 Range/Units 20:42 07:07 07:07 Hgb (11.4-16.0) gm/dL MCV (80.0-100.0) fL MCH (25.0-35.0) pg MCHC (31.0-37.0) g/dL RDW (11.5-15.5) % Lymphocytes # (1.0-4.8) k/uL Sodium 133 L (137-145) mmol/L Potassium 3.2 L (3.5-5.1) mmol/L Chloride 90 L (98-107) mmol/L Carbon Dioxide 35 H (22-30) mmol/L BUN 31 H (7-17) mg/dL Creatinine 1.49 H 1.46 H (0.52-1.04) mg/dL POC Glucose (mg/dL) 107 H (75-99) mg/dL Calcium 8.2 L (8.4-10.2) mg/dL Total Bilirubin 1.5 H (0.2-1.3) mg/dL AST 44 H (14-36) U/L Alkaline Phosphatase 151 H (38-126) U/L C-Reactive Protein 14.4 H (<10.0) mg/L Total Protein 6.2 L (6.3-8.2) g/dL Albumin 3.0 L (3.5-5.0) g/dL 10/20/20 10/20/20 Range/Units 07:07 14:24 Hgb 11.0 L (11.4-16.0) gm/dL MCV 74.8 L (80.0-100.0) fL MCH 22.1 L (25.0-35.0) pg MCHC 29.5 L (31.0-37.0) g/dL RDW 19.7 H (11.5-15.5) % Lymphocytes # 0.4 L (1.0-4.8) k/uL Sodium (137-145) mmol/L Potassium 3.4 L (3.5-5.1) mmol/L Chloride (98-107) mmol/L Carbon Dioxide (22-30) mmol/L BUN (7-17) mg/dL Creatinine (0.52-1.04) mg/dL POC Glucose (mg/dL) (75-99) mg/dL Calcium (8.4-10.2) mg/dL Total Bilirubin (0.2-1.3) mg/dL AST (14-36) U/L Alkaline Phosphatase (38-126) U/L C-Reactive Protein (<10.0) mg/L Total Protein (6.3-8.2) g/dL Albumin (3.5-5.0) g/dL Microbiology - Last 24 Hours (Table) 10/18/20 17:22 Urine Culture - Final Urine,Catheterized Assessment and Plan Assessment: 1. Generalized weakness. 2. Acute Hypothermia. Resolved. 3. Hypotension. Beta tanya currently on hold. Cardiology service is consulted 4. Acute on chronic diastolic congestive heart failure. 2-D echo recently completed showing EF of 55-60%. Cardiology services have been consulted. Patient remains on IV Lasix 5. Severe worsening lymphedema. Patient recently evaluated by vascular surgery no surgical intervention recommended 6. chronic kidney disease stage III. Creatinine 1.59 and bun 42. Nephrology services consulted 7. Urinary tract infection. Patient started on Rocephin. Urine culture ordered 8. History of gout 9. Hypothyroidism. Patient had elevated TSH last week was started on Synthroid. TSH remains elevated but continue current dose 10. History of persistent atrial fibrillation. Patient is maintained on eliquis 11. Abnormal computed tomography scan of the brain and mental status changes neurology consultation has been requested. Neurology services are following 12. Gram-positive bacteremia. Coagulase-negative staph. Patient remains on vancomycin. Infectious disease is following repeat cultures have been ordered 13. Sick sinus syndrome with pacemaker insertion 14. Hypokalemia likely secondary to diuretics. Replacement protocol DVT prophylaxis eliquis. GI prophylaxis Protonix PT OT is consulted Social consulted for discharge planning Cardiology, nephrology, infectious disease, neurology and critical care service following
[2020-10-20] MEDS ORDERED: Magnesium Replacement Protocol 1 EACH MISC MISCELLANE PRN (18:25)
[2020-10-20] MEDS: MAGNESIUM SULFATE-D5W PMX 1 GM in DEXTROSE/WATER 1 100ML.BAG IVPB SCH ×2 (18:39→19:51)
[2020-10-20 20:01] LABS: Glucose,Whole Blood 143 mg/dL (75-99)
[2020-10-21 06:29] LABS: Glucose,Whole Blood 90 mg/dL (75-99)
[2020-10-21] MEDS: PANTOPRAZOLE 40 MG TABLET PO SCH (06:32)
[2020-10-21] MEDS: LEVOTHYROXINE 25 MCG TAB PO SCH (06:32)
[2020-10-21 08:45] LABS: Potassium 3.3 mmol/L (3.5-5.1)
[2020-10-21] MEDS: APIXABAN 5 MG TAB PO SCH ×2 (09:34→19:41)
[2020-10-21] MEDS: MIDODRINE 5 MG TAB PO SCH ×3 (09:34→23:04)
[2020-10-21] MEDS: METOPROLOL TARTRATE 25 MG TAB PO SCH ×2 (09:34→19:41)
[2020-10-21] MEDS: FUROSEMIDE 40 MG TAB PO SCH (09:34)
[2020-10-21] MEDS: acetaZOLAMIDE 250 MG TAB PO SCH (09:34)
[2020-10-21 09:40] LABS: Anisocytosis Slight; Basophils % (A) 1 %; Eosinophils # (A) 0.5 k/uL (0-0.7); Eosinophils % (A) 6 %; HCT 35.5 % (34.0-46.0); HGB 10.7 gm/dL (11.4-16.0); Hypochromasia Marked; Lymphocytes # (A) 0.4 k/uL (1.0-4.8); Lymphocytes % (A) 5 %; MCH 22.5 pg (25.0-35.0); MCHC 30.2 g/dL (31.0-37.0); MCV 74.7 fL (80.0-100.0); Mean Platelet Volume 7.7; Microcytosis Moderate; Monocytes # (A) 0.6 k/uL (0-1.0); Monocytes % (A) 7 %; Neutrophils # (A) 6.3 k/uL (1.3-7.7); Neutrophils % (A) 79 %; Platelet Count 169 k/uL (150-450); Poikilocytosis Slight; RBC 4.76 m/uL (3.80-5.40); RDW 19.8 % (11.5-15.5); WBC 7.9 k/uL (3.8-10.6)
[2020-10-21 09:44] LABS: Albumin 2.7 g/dL (3.5-5.0); Calcium 8.1 mg/dL (8.4-10.2); Potassium 3.3 mmol/L (3.5-5.1); Total Bilirubin 1.2 mg/dL (0.2-1.3); Total Protein 5.8 g/dL (6.3-8.2)
[2020-10-21] MEDS ORDERED: Potassium Replacement Protocol 1 EACH MISC MISCELLANE PRN (09:47)
[2020-10-21] MEDS: POTASSIUM CHLORIDE 10 MEQ in WATER FOR INJECTION 1 100ML.BAG IVPB SCH ×4 (10:12→13:26)
--- NOTE | 2020-10-21 10:55 | P.PN ---
Subjective This is a pleasant 75-year-old female past medical history significant for chronic diastolic heart failure, sick sinus syndrome status post permanent pacemaker implantation, chronic persistent atrial fibrillation, CVA, diabetes mellitus and fibromyalgia. She follows in the office at Dr. Dr. Ruby. She is seen and examined sitting up in no acute distress. She continues to be maintained on IV diuretics. Urine output in the previous 24 hours 5100 mls. Blood pressure 113/66 heart rate 94 afebrile maintaining oxygen saturation on room air. Laboratory data reviewed, WBC 6.9, hemoglobin 10.2, platelets 162, sodium 136, potassium 3.2, creatinine 1.36. Currently maintained on Diamox 250 mg 3 times a day, Eliquis 5 mg twice a day, Lasix 40 mg IV twice a day and midodrine 10 mg 3 times a day. Most recent echocardiogram obtained August 2020 revealed preserved LV systolic function with ejection fraction 55-60%, moderate exam with peak LVOT gradient of 24 mmHg, severely dilated left atrium, moderate to severe aortic stenosis with a mean gradient of 20 mmHg, moderate mitral regurgitation, severe tricuspid regurgitation and severe pulmonary hypertension with RVSP of 89 mmHg. 10/20/2020 Patient seen and examined sitting up in bed in no acute distress. She denies any symptoms of worsening shortness of breath. She feels tired today. She states she didn't sleep much last night for no specific reason. Blood pressure 108/58 heart rate 92 afebrile and maintaining oxygen saturation on room air. Laboratory data reviewed, to be VC 7.9, hemoglobin 10.7, platelets 169, sodium 134, potassium 3.3, creatinine 1.51, magnesium 2.0. GENERAL: Well-appearing, well-nourished and in no acute distress. NECK: Supple without JVD or thyromegaly. LUNGS: Clear to auscultation bilaterally, no rales, rhonchi or wheezes. Respiration equal and unlabored. Diminished bilaterally. HEART: Regular rate and rhythm with systolic ejection murmur at the base and apex, no rubs or gallops. S1 and S2 heard. EXTREMITIES: Normal range of motion, bilateral lower extremity edema suggestive of lymphedmea. No clubbing or cyanosis. Peripheral pulses intact. ASSESSMENT Acute on chronic diastolic heart failure, improved Generalized weakness Hypokalemia Chronic persistent atrial fibrillation on long-term anticoagulation Sick sinus syndrome status post permanent pacemaker implantation Chronic kidney disease Chronic lymphedema Urinary tract infection Gram-positive bacteremia Moderate mitral regurgitation Moderate aortic stenosis Pulmonary hypertension CVA Diabetes mellitus PLAN Continue to replace potassium per protocol. We will follow along as needed, please call with further questions of concerns. Nurse Practitioner note has been reviewed, I agree with a documented findings and plan of care. Patient was seen and examined. Objective - Vital Signs Vital signs: Vital Signs Temp 97.8 F 10/21/20 08:00 Pulse 92 10/21/20 08:00 Resp 16 10/21/20 08:00 BP 108/58 10/21/20 08:00 Pulse Ox 91 L 10/21/20 08:00 Intake & Output 10/20/20 10/21/20 10/21/20 18:59 06:59 18:59 Intake Total 550 Output Total 2150 825 Balance -1600 -825 Weight 93.5 kg Intake: Oral 550 Output: Urine 2150 825 Other: Voiding Method Indwelling Catheter Indwelling Catheter Indwelling Catheter # Bowel Movements 1 - Labs CBC & Chem 7: 10/21/20 07:36 10/21/20 07:36 Labs: Abnormal Lab Results - Last 24 Hours (Table) 10/20/20 10/20/20 10/21/20 Range/Units 14:24 20:00 07:36 Hgb (11.4-16.0) gm/dL MCV (80.0-100.0) fL MCH (25.0-35.0) pg MCHC (31.0-37.0) g/dL RDW (11.5-15.5) % Lymphocytes # (1.0-4.8) k/uL Sodium (137-145) mmol/L Potassium 3.4 L 3.3 L (3.5-5.1) mmol/L Chloride (98-107) mmol/L Carbon Dioxide (22-30) mmol/L BUN (7-17) mg/dL Creatinine 1.52 H (0.52-1.04) mg/dL POC Glucose (mg/dL) 143 H (75-99) mg/dL Calcium (8.4-10.2) mg/dL AST (14-36) U/L Alkaline Phosphatase (38-126) U/L Total Protein (6.3-8.2) g/dL Albumin (3.5-5.0) g/dL 10/21/20 10/21/20 Range/Units 07:36 07:36 Hgb 10.7 L (11.4-16.0) gm/dL MCV 74.7 L (80.0-100.0) fL MCH 22.5 L (25.0-35.0) pg MCHC 30.2 L (31.0-37.0) g/dL RDW 19.8 H (11.5-15.5) % Lymphocytes # 0.4 L (1.0-4.8) k/uL Sodium 134 L (137-145) mmol/L Potassium 3.3 L (3.5-5.1) mmol/L Chloride 92 L (98-107) mmol/L Carbon Dioxide 33 H (22-30) mmol/L BUN 29 H (7-17) mg/dL Creatinine 1.51 H (0.52-1.04) mg/dL POC Glucose (mg/dL) (75-99) mg/dL Calcium 8.1 L (8.4-10.2) mg/dL AST 37 H (14-36) U/L Alkaline Phosphatase 149 H (38-126) U/L Total Protein 5.8 L (6.3-8.2) g/dL Albumin 2.7 L (3.5-5.0) g/dL Microbiology - Last 24 Hours (Table) 10/20/20 07:07 Blood Culture - Preliminary Blood No Growth after 24 hours 10/18/20 17:22 Urine Culture - Final Urine,Catheterized
--- NOTE | 2020-10-21 11:33 | P.PN ---
Subjective Progress Note Date: 10/21/20 Principal diagnosis: Altered mental status, hypothermia, metabolic encephalopathy, recurrent urinary tract infection, acute on chronic diastolic CHF This is a 75-year-old female with known history of multiple medical problems, patient was admitted to the hospital on 10/01/2020, and she was discharged on 10/09/19. Patient had on the last admission acute exacerbation of diastolic congestive heart failure, and she was treated with Lasix drip. Patient also had severe lymphedema, chronic atrial fibrillation and maintained on eliquis. History of hypertension, dwa-kldioki-jvjnanjys diabetes, hypothyroidism, and she had on the last admission acute urinary tract infection treated with Rocephin. After 8 days of hospitalization, patient was discharged to [facility] for rehab. And the patient was therefore less than 48 hours, then she left AGAINST MEDICAL ADVICE. At home, her condition continued to deteriorate, and she was becoming more and more confused. She was brought into the ER, noted to be hypothermic, and her chest x-ray showed evidence of congestive heart failure. Considering her abnormal chest x-ray, this consult was initiated. I saw the patient, she is presently on room air O2 saturation is 94%, patient is confused, cannot give any history, but does not seem to be in distress, she looks frail and chronically ill. But again no evidence of respiratory distress. Chest x- ray was reviewed, and I have recommended placing the patient back on Lasix IV push. ABC on admission was normal except for hemoglobin of 10.7. Electrolytes showed low potassium of 3.4, she had elevated bicarb of 38, elevated BUN of 42 creatinine 1.59, her creatinine the day of discharge was 1.9 and it was mostly in the range of 1.4 up to 2.2. Urinalysis showed evidence of minimal bacteriuria and minimal pyuria. Patient was recently treated for UTI with Rocephin. Her BNP level was elevated at 3500. Serum cortisol level is 18 and her TSH was elevated with relatively normal T4. Patient was reevaluated today on 10/17/2020, patient is a bit somnolent, arousable, basically not much different from yesterday. She is on room air, denies any specific complaints, but she looks generally weak and frail. Her O2 saturations 95% on room air. And neurological consultation is pending regarding the questionable normal pressure hydrocephalus as noted on the CT of the brain. Labs were reviewed CBC is relatively normal lites are normal except for low potassium of 3.1 renal functioning is slightly better with creatinine of 1.75 today, compared to yesterday was 1.80. No chest x-ray was ordered for today, I did order a chest x-ray to be done tomorrow and compared to her admission chest x-ray patient remains on diuretics/Lasix 40 mg IV push every 12 hours. The preliminary report on the blood culture is showing gram-positive cocci in clusters. Hence the patient is now on vancomycin empirically. She is also on Rocephin On today's evaluation of 10/18/2020, the patient is lethargic and sleepy. -2.6 L for yesterday and the patient is receiving Lasix 40 mg every 12 hours. She is producing adequate amount of urine output. Creatinine is down to 1.5. She is currently on room air oxygen. No chest pain. No significant signs of any shortness of breath. Her pulse ox is 92% on room air oxygen. She is normothermic for now. The blood culture came back positive for coagulase- negative staph which is probably contaminant. The patient is on vancomycin empirically that can be discontinued and the patient is also on IV Rocephin.. The follow-up chest x-ray showing improvement in the volume status and a perihilar infiltrate described earlier. She still has cardiomegaly and she also has a pacemaker over the left anterior chest area. Creatinine is improving is currently down to 1.5. On 10/19/2020 patient seen in follow-up on [facility] care floor, she is resting comfortably in bed, she is breathing comfortably, currently room air pulse ox is 97%, she is not on any IV fluids or medications, no cough, no chest pain, her blood culture showed Staphylococcus epidermidis, urine culture is pending, patient is currently on Rocephin, and vancomycin. No leukocytosis and today's labs, a little, 6.9, hemoglobin is 10.2, potassium was 3.2, CO2 was 40, chloride was 89, BUN is 37, creatinine is 1.36. Patient continues on diuretics, she has been diuresing extensively, she is in -5.1 L over the last 24 hours, and patient has been diuresing quite extensively, denies any shortness of breath, lung sounds are clear, lower extremity edema has significantly improved. On 10-20-2020 patient seen in follow-up on selective care unit. She is doing much easier, she has been diuresed, she is actually looking a little bit dry on today's exam, she is on room air, denies any shortness of breath or chest pain. She is in -3 L over last 24 hours, lower and upper extremity edema has significantly improved, today's labs have been reviewed showing sodium of 133, potassium is 3.2, CO2 is 35, chloride is 90, creatinine is up slightly, at 1.46, and BUN is 31. Final blood culture came back positive for MSSA, vancomycin has been discontinued, patient is currently on ceftriaxone. No altered mentation, no fever or chills, patient was started on Diamox for metabolic alkalosis. Nephrology is following On 10/21/2020 patient seen in follow-up on selective care unit, she is lethargic today, but does not appear to be in any acute distress, she is on room air, breathing comfortably, and pulse ox is 93%, lung sounds are clear, diminished at the bases, she's been afebrile, blood pressure is stable. She continues to diurese, she is in -2.4 L fluid balance over the last 24 hours. The diuretics have been discontinued, she remains on Rocephin for MSSA bacteremia, she is on oral anticoagulation for history of chronic A. fib. She's had no acute events overnight. Patient appears to be very weak, debilitated, bit more sleepy today than yesterday. Clinically appears to be a bit dry. These labs have been reviewed, white count 7.9, hemoglobin is 10.7, sodium is 1 34, potassium is 3.3 and is being replaced per protocol, CO2 is 33, renal function is relatively stable, with slight increase in creatinine up to 1.5. Objective - Vital Signs Vital signs: Vital Signs Temp 97.7 F 10/21/20 11:21 Pulse 83 10/21/20 11:21 Resp 16 10/21/20 11:21 BP 113/56 10/21/20 11:21 Pulse Ox 93 L 10/21/20 11:21 Intake & Output 10/20/20 10/21/20 10/21/20 18:59 06:59 18:59 Intake Total 550 Output Total 2150 825 Balance -1600 -825 Weight 93.5 kg Intake: Oral 550 Output: Urine 2150 825 Other: Voiding Method Indwelling Catheter Indwelling Catheter Indwelling Catheter # Bowel Movements 1 - Exam GENERAL EXAM: Alert, very pleasant, 75-year-old white female, on room air, with a pulse ox of 93% comfortable in no apparent distress. HEAD: Normocephalic/atraumatic. EYES: Normal reaction of pupils, equal size. Conjunctiva pink, sclera white. NOSE: Clear with pink turbinates. THROAT: No erythema or exudates. NECK: No masses, no JVD, no thyroid enlargement, no adenopathy. CHEST: No chest wall deformity. Symmetrical expansion. LUNGS: Equal air entry with no crackles, wheeze, rhonchi or dullness. CVS: Regular rate and rhythm, normal S1 and S2, no gallops, no murmurs, no rubs ABDOMEN: Soft, nontender. No hepatosplenomegaly, normal bowel sounds, no guarding or rigidity. EXTREMITIES: No clubbing, chronic lower extremity edema, and chronic thickening of skin and chronic venous stasis changes in lower extremities, edema has improved after extensive diuresis and there is some wrinkles on her skin, no cyanosis, 2+ pulses and upper and lower extremities. MUSCULOSKELETAL: Muscle strength and tone normal. SPINE: No scoliosis or deformity SKIN: No rashes CENTRAL NERVOUS SYSTEM: Alert and oriented -3. No focal deficits, tone is normal in all 4 extremities. PSYCHIATRIC: Alert and oriented -3. Appropriate affect. Intact judgment and insight. - Labs CBC & Chem 7: 10/21/20 07:36 10/21/20 07:36 Labs: Abnormal Lab Results - Last 24 Hours (Table) 10/20/20 10/20/20 10/21/20 Range/Units 14:24 20:00 07:36 Hgb (11.4-16.0) gm/dL MCV (80.0-100.0) fL MCH (25.0-35.0) pg MCHC (31.0-37.0) g/dL RDW (11.5-15.5) % Lymphocytes # (1.0-4.8) k/uL Sodium (137-145) mmol/L Potassium 3.4 L 3.3 L (3.5-5.1) mmol/L Chloride (98-107) mmol/L Carbon Dioxide (22-30) mmol/L BUN (7-17) mg/dL Creatinine 1.52 H (0.52-1.04) mg/dL POC Glucose (mg/dL) 143 H (75-99) mg/dL Calcium (8.4-10.2) mg/dL AST (14-36) U/L Alkaline Phosphatase (38-126) U/L Total Protein (6.3-8.2) g/dL Albumin (3.5-5.0) g/dL 10/21/20 10/21/20 Range/Units 07:36 07:36 Hgb 10.7 L (11.4-16.0) gm/dL MCV 74.7 L (80.0-100.0) fL MCH 22.5 L (25.0-35.0) pg MCHC 30.2 L (31.0-37.0) g/dL RDW 19.8 H (11.5-15.5) % Lymphocytes # 0.4 L (1.0-4.8) k/uL Sodium 134 L (137-145) mmol/L Potassium 3.3 L (3.5-5.1) mmol/L Chloride 92 L (98-107) mmol/L Carbon Dioxide 33 H (22-30) mmol/L BUN 29 H (7-17) mg/dL Creatinine 1.51 H (0.52-1.04) mg/dL POC Glucose (mg/dL) (75-99) mg/dL Calcium 8.1 L (8.4-10.2) mg/dL AST 37 H (14-36) U/L Alkaline Phosphatase 149 H (38-126) U/L Total Protein 5.8 L (6.3-8.2) g/dL Albumin 2.7 L (3.5-5.0) g/dL Microbiology - Last 24 Hours (Table) 10/20/20 07:07 Blood Culture - Preliminary Blood No Growth after 24 hours 10/18/20 17:22 Urine Culture - Final Urine,Catheterized Assessment and Plan Plan: Assessment: #1. Altered mental status, multifactorial, related to metabolic encephalopathy, hypothermia, acute kidney injury, recurrent urinary tract infection, and acute exacerbation of chronic diastolic CHF. Recovered #2. Generalized weakness, possible normal pressure hydrocephalus, and patient is to have outpatient follow-up with the neurosurgeon #3. Acute on chronic diastolic CHF patient has been diuresed sufficiently, currently off the diuretics #4. Chronic kidney disease stage III #5. Recurrent urinary tract infection #6. History of lymphedema #7. History of hypothyroidism #8. Chronic A. fib on Eliquis #9. Gram-positive bacteremia, coag-negative staph #10. Acute hypothermia, has improved #11. Sick sinus syndrome with a pacemaker insertion #12. Fibromyalgia #13. Iron deficiency anemia #14. Hypothyroidism #15. Valvular heart disease, moderate to severe aortic stenosis, moderate mitr al regurg, severe tricuspid regurg, and severe pulmonary hypertension with PA systolic of 89 mmHg Plan: Replace serum potassium per protocol, and diuretics have been discontinued as the patient seems to be clinically dry, follow blood cultures are negative, patient remains on Rocephin for MSSA bacteremia. no fever or chills. Follow blood cultures ordered and pending. Overall prognosis is quite guarded. Follow-up chest x-ray in the morning, follow-up labs including electrolytes and renal profile. I performed a history & physical examination of the patient and discussed their management with my nurse practitioner, Imelda Navarro. I reviewed the nurse practitioner's note and agree with the documented findings and plan of care. Lung sounds are positive for diminished breath sounds. The findings and the impression was discussed with the patient. I attest to the documentation by the nurse practitioner. Time with Patient: Less than 30
[2020-10-21 11:58] LABS: Glucose,Whole Blood 90 mg/dL (75-99)
--- NOTE | 2020-10-21 12:40 | PN ---
PROGRESS NOTE The patient is seen for followup for chronic kidney disease and acute kidney injury. Patient is being diuresed. Her volume status has improved significantly. She is however quite weak today and has not been eating much. Creatinine remains stable staying at about 1.5 mg/dL. PHYSICAL EXAMINATION: On examination today, blood pressure was 108/58, heart rate 92 per minute. Patient is afebrile. EXAMINATION OF THE HEART: S1, S2. EXAMINATION OF THE LUNGS: Bilateral breath sounds are heard. Decreased breath sounds at bases. Abdomen is soft, nontender. Examination of lower extremities shows much improved edema. There is also improvement in edema in the upper extremities. [employer] exam shows no significant motor deficits. LABS: Labs show sodium 134, potassium 3.3, chloride 92, CO2 is 33, BUN 29, creatinine 1.5 mg/dL. ASSESSMENT: 1. Chronic kidney disease secondary to nephrosclerosis NKF stage 3. Baseline creatinine about 1 to 1.1 mg/dL. 2. Metabolic alkalosis secondary to diuresis, status post Diamox. 3. Volume overload now significantly improved. I will discontinue the Lasix for now. 4. Acute kidney injury mostly cardiorenal, currently improved. PLAN: Hold Lasix. May discontinue the Diamox for now. Repeat labs in a.m. Encourage increased oral intake. May continue with the midodrine for now. MMODL / IJN: [id number] /
--- NOTE | 2020-10-21 12:41 | P.DS ---
Providers Date of admission: 10/15/20 13:58 Expected date of discharge: 10/21/20 Attending physician: Kamaljit Krause Consults: 10/16/20 11:39 Consult Physician Routine Consulting Provider: Carmelo Osorio Consult Reason/Comments: Established patient, known CHF Do you want consulting provider notified?: Yes 10/16/20 12:28 Consult Physician Routine Consulting Provider: Mesha Kimble Consult Reason/Comments: acute on chronic, edema, CHF Do you want consulting provider notified?: Yes 10/16/20 12:29 Consult Physician Routine Consulting Provider: Criselda Angulo Consult Reason/Comments: CHF, acute renal, critical care Do you want consulting provider notified?: Yes 10/16/20 22:16 Consult Physician Routine Consulting Provider: Sharri Lovell Consult Reason/Comments: positive blood culture Do you want consulting provider notified?: Yes 10/17/20 09:48 Consult Physician Routine Consulting Provider: Vignesh Gutierrez Consult Reason/Comments: nph Do you want consulting provider notified?: Yes Primary care physician: Kamaljit Krause Hospital Course: discharge diagnosis 1. Generalized weakness. 2. Acute Hypothermia. Resolved. 3. Hypotension. Beta tanya currently on hold. Cardiology service is consulted. Beta tanya has been decreased 4. Acute on chronic diastolic congestive heart failure. 2-D echo recently completed showing EF of 55-60%. Cardiology services have been consulted. Patient remains on IV Lasix 5. Severe worsening lymphedema. Patient recently evaluated by vascular surgery no surgical intervention recommended 6. chronic kidney disease stage III. Creatinine 1.59 and bun 42. Nephrology services consulted 7. Urinary tract infection. Patient started on Rocephin. Urine culture ordered 8. History of gout 9. Hypothyroidism. Patient had elevated TSH last week was started on Synthroid. TSH remains elevated but continue current dose 10. History of persistent atrial fibrillation. Patient is maintained on eliquis 11. Abnormal computed tomography scan of the brain and mental status changes neurology consultation has been requested. Neurology services are following 12. Gram-positive bacteremia. Coagulase-negative staph. Patient remains on vancomycin. Infectious disease is following repeat cultures have been ordered. Repeat cultures negative. Discussed case with infectious disease Dr. Lovell no need for antibiotics upon discharge 13. Sick sinus syndrome with pacemaker insertion 14. Hypokalemia likely secondary to diuretics. Replacement protocol Hospital course This is a 75-year-old female patient presented to the ER with complaints of generalized weakness. Patient was recently admitted for CHF and was on Lasix drip was DC'd to [facility] for rehab. It is reported that patient was there less than 48 hours and then left AMA. Per patient had been continued to decline at home. Patient has a past medical history of CHF, CVA, diabetes mellitus, fibromyalgia, osteoporosis, pneumonia and dementia. Patient does appear more confused than baseline. Urinary analysis positive for UTI patient started on Rocephin. Patient was hypothermic upon admission. Temperature has since improved. Patient will pressure also well Lopressor on hold. At this time will consult cardiology services due to and known CHF. PT OT consulted social consulted for discharge planning. Rocephin added for urinary tract infection. Patient denies any specific complaints. Denies chest pain. Reports chronic shortness of breath. Patient denies nausea vomiting or diarrhea. Patient denies any urinary burning or frequency. On 10/17/2020 patient was seen and examined on the telemetry floor she is somnolent and arousable and answers few questions and closes her eyes she is complaining of pain all over otherwise she is denying any complaints, her vital examination reveals a temperature of 97.4 pulse 90 respiration 18 blood pressure 118/72 pulse ox 95% on room air, computed tomography scan of the brain reviewed, there is possible normal pressure hydrocephalus, consultation for neurology was initiated in regard to depressed mental status and abnormal computed tomography scan of the brain, input from nephrology and pulmonary was reviewed. On 10/18/2020 patient is resting comfortably in bed. Patient remains somnolent but is arousable and answers questions at times. Creatinine trending down to 1.57 and bun 41. Potassium remains low at 3.0 placed per protocol. Patient remains on vancomycin. Critical care, infectious disease, nephrology services, cardiology and neurology services are following. Vitals at this time remain stable On 10/19/2020 patient was seen and examined on the medical floor she is alert and oriented 3 in no apparent distress there is no fever or chills no headache or dizziness no chest pain no shortness of breath no cough no nausea or vomiting no abdominal pain no diarrhea no blood in the stools no burning with urination no frequency or urgency and no hematuria she still has significant bilateral lower extremity edema On 10/20/2020 patient was seen and examined on the medical floor she is alert and oriented 3 in no distress there is no fever or chills no headache or dizziness no chest pain no cough . Her shortness of breath has improved significantly and lower extremity swelling has improved there is no nausea or vomiting no abdominal pain no diarrhea no blood in the stools no burning with urination no frequency or urgency and no hematuria On 10/21/2020 patient is alert and oriented 3 resting comfortably in bed. Diuretics were held per cardiology and pulmonary services due to dryness. Patient has been cleared for discharge though from cardiology and pulmonary services. Discussed case with Dr. Lovell per infectious disease. Patient does not require antibiotics upon discharge. Patient to resume Demadex 20 g daily on 10/22/2020 if discharged to [facility] facility. Awaiting prior authorization to [facility]. His time patient denies chest pain or shortness of breath. Patient denies nausea vomiting or diarrhea. Patient denies any urinary burning or frequency Patient Condition at Discharge: Stable Plan - Discharge Summary Discharge Rx Participant: No New Discharge Prescriptions: New Metoprolol Tartrate [Lopressor] 25 mg PO BID tab Continue Apixaban [Eliquis] 5 mg PO BID 30 Days #60 tab Tolterodine Tartrate [Detrol LA] 4 mg PO DAILY Potassium Chloride [Klor-Con 20] 20 meq PO DAILY PRN PRN Reason: w/lasix Torsemide [Demadex] 20 mg PO DAILY tab Pantoprazole [Protonix] 40 mg PO AC-BRKFST tablet. Levothyroxine Sodium [Synthroid] 25 mcg PO DAILY@0630 tab Midodrine [ProAmatine] 10 mg PO Q8H Discontinued Metoprolol Tartrate [Lopressor] 50 mg PO BID tab traMADol HCL 50 mg PO Q8H PRN PRN Reason: Pain Discharge Medication List Apixaban [Eliquis] 5 mg PO BID 30 Days #60 tab 10/15/18 [Rx] Potassium Chloride [Klor-Con 20] 20 meq PO DAILY PRN 09/30/20 [History] Tolterodine Tartrate [Detrol LA] 4 mg PO DAILY 09/30/20 [History] Levothyroxine Sodium [Synthroid] 25 mcg PO DAILY@0630 tab 10/09/20 [Rx] Pantoprazole [Protonix] 40 mg PO AC-BRKFST tablet. 10/09/20 [Rx] Torsemide [Demadex] 20 mg PO DAILY tab 10/09/20 [Rx] Midodrine [ProAmatine] 10 mg PO Q8H 10/15/20 [History] Metoprolol Tartrate [Lopressor] 25 mg PO BID tab 10/21/20 [Rx] Follow up Appointment(s)/Referral(s): Kamaljit Krause MD [Primary Care Provider] - 1 Week Lexi Ruby MD [STAFF PHYSICIAN] - 2 Weeks Activity/Diet/Wound Care/Special Instructions: Admission labs CBC and CMP. Please add magnesium level Resume Demadex on 10/22/2020 Discharge Disposition: TRANSFER TO SNF/ECF
--- NOTE | 2020-10-21 16:03 | PN ---
PROGRESS NOTE DATE OF SERVICE: 10/21/2020 REASON FOR FOLLOWUP: 1. Positive blood culture . 2. UTI. INTERVAL HISTORY: The patient is currently afebrile. The patient is breathing comfortably, currently on room air. No vomiting or diarrhea has been reported. Patient herself was unable to provide reliable history. PHYSICAL EXAMINATION: Blood pressure 113/56, pulse of 83, temperature 99.7. She is 93% on room air. General description is an elderly female lying in bed in no distress. RESPIRATORY SYSTEM: Unlabored breathing. Clear to auscultation anteriorly. HEART: S1, S2. Regular rate and rhythm. ABDOMEN: Soft. No tenderness. LABS: Hemoglobin is 10.6, white count 7.9, BUN of 29, creatinine 1.51. DIAGNOSTIC IMPRESSION AND PLAN: 1. Patient with a positive blood culture with Staphylococcus epidermidis, likely contaminant. Repeat blood culture negative. 2. Urinary tract infection. Urine showing yeast contamination or colonization, as the patient did improve without for it; hence no need for any specific antibiotic on discharge. Discussed with the nurse practitioner for admitting team. MMODL / IJN: [id number] /
[2020-10-21 16:32] LABS: Glucose,Whole Blood 87 mg/dL (75-99)
[2020-10-21 19:51] VITALS: RESP 16
[2020-10-21 20:13] LABS: Glucose,Whole Blood 135 mg/dL (75-99)
[2020-10-22 06:09] LABS: Glucose,Whole Blood 97 mg/dL (75-99)
[2020-10-22] MEDS: PANTOPRAZOLE 40 MG TABLET PO SCH (06:24)
[2020-10-22] MEDS: LEVOTHYROXINE 25 MCG TAB PO SCH (06:24)
--- NOTE | 2020-10-22 07:07 | XR ---
EXAMINATION TYPE: XR chest 1V portable DATE OF EXAM: 10/22/2020 HISTORY: Shortness of breath. COMPARISON: 10/18/2020 TECHNIQUE: Single view of the chest is submitted. FINDINGS: Demonstrated are scattered senescent parenchymal change. Patchy perihilar and basilar infiltrates persist without significant change. The heart is stable. Hilar and mediastinal structures are within normal limits. Degenerative changes are seen of the dorsal spine. IMPRESSION: 1. Stable chest.
[2020-10-22] MEDS: APIXABAN 5 MG TAB PO SCH (09:21)
[2020-10-22] MEDS: METOPROLOL TARTRATE 25 MG TAB PO SCH (09:21)
[2020-10-22] MEDS: MIDODRINE 5 MG TAB PO SCH (09:21)
[2020-10-22 09:38] VITALS: BP 93/58; PULSE 87; TEMP 96.9
[2020-10-22 09:46] LABS: Calcium 8.5 mg/dL (8.4-10.2); Potassium 3.7 mmol/L (3.5-5.1)
[2020-10-22 11:35] LABS: Glucose,Whole Blood 96 mg/dL (75-99)
--- NOTE | 2020-10-22 13:05 | P.PN ---
Subjective Progress Note Date: 10/22/20 Principal diagnosis: Altered mental status, hypothermia, metabolic encephalopathy, recurrent urinary tract infection, acute on chronic diastolic CHF This is a 75-year-old female with known history of multiple medical problems, patient was admitted to the hospital on 10/01/2020, and she was discharged on 10/09/19. Patient had on the last admission acute exacerbation of diastolic congestive heart failure, and she was treated with Lasix drip. Patient also had severe lymphedema, chronic atrial fibrillation and maintained on eliquis. History of hypertension, [id number] diabetes, hypothyroidism, and she had on the last admission acute urinary tract infection treated with Rocephin. After 8 days of hospitalization, patient was discharged to medical [place] for rehab. And the patient was therefore less than 48 hours, then she left AGAINST MEDICAL ADVICE. At home, her condition continued to deteriorate, and she was becoming more and more confused. She was brought into the ER, noted to be hypothermic, and her chest x-ray showed evidence of congestive heart failure. Considering her abnormal chest x-ray, this consult was initiated. I saw the patient, she is presently on room air O2 saturation is 94%, patient is confused, cannot give any history, but does not seem to be in distress, she looks frail and chronically ill. But again no evidence of respiratory distress. Chest x- ray was reviewed, and I have recommended placing the patient back on Lasix IV push. ABC on admission was normal except for hemoglobin of 10.7. Electrolytes showed low potassium of 3.4, she had elevated bicarb of 38, elevated BUN of 42 creatinine 1.59, her creatinine the day of discharge was 1.9 and it was mostly in the range of 1.4 up to 2.2. Urinalysis showed evidence of minimal bacteriuria and minimal pyuria. Patient was recently treated for UTI with Rocephin. Her BNP level was elevated at 3500. Serum cortisol level is 18 and her TSH was elevated with relatively normal T4. Patient was reevaluated today on 10/17/2020, patient is a bit somnolent, arousable, basically not much different from yesterday. She is on room air, denies any specific complaints, but she looks generally weak and frail. Her O2 saturations 95% on room air. And neurological consultation is pending regarding the questionable normal pressure hydrocephalus as noted on the CT of the brain. Labs were reviewed CBC is relatively normal lites are normal except for low potassium of 3.1 renal functioning is slightly better with creatinine of 1.75 today, compared to yesterday was 1.80. No chest x-ray was ordered for today, I did order a chest x-ray to be done tomorrow and compared to her admission chest x-ray patient remains on diuretics/Lasix 40 mg IV push every 12 hours. The preliminary report on the blood culture is showing gram-positive cocci in clusters. Hence the patient is now on vancomycin empirically. She is also on Rocephin On today's evaluation of 10/18/2020, the patient is lethargic and sleepy. -2.6 L for yesterday and the patient is receiving Lasix 40 mg every 12 hours. She is producing adequate amount of urine output. Creatinine is down to 1.5. She is currently on room air oxygen. No chest pain. No significant signs of any shortness of breath. Her pulse ox is 92% on room air oxygen. She is normothermic for now. The blood culture came back positive for coagulase- negative staph which is probably contaminant. The patient is on vancomycin empirically that can be discontinued and the patient is also on IV Rocephin.. The follow-up chest x-ray showing improvement in the volume status and a perihilar infiltrate described earlier. She still has cardiomegaly and she also has a pacemaker over the left anterior chest area. Creatinine is improving is currently down to 1.5. On 10/19/2020 patient seen in follow-up on [facility] care floor, she is resting comfortably in bed, she is breathing comfortably, currently room air pulse ox is 97%, she is not on any IV fluids or medications, no cough, no chest pain, her blood culture showed Staphylococcus epidermidis, urine culture is pending, patient is currently on Rocephin, and vancomycin. No leukocytosis and today's labs, a little, 6.9, hemoglobin is 10.2, potassium was 3.2, CO2 was 40, chloride was 89, BUN is 37, creatinine is 1.36. Patient continues on diuretics, she has been diuresing extensively, she is in -5.1 L over the last 24 hours, and patient has been diuresing quite extensively, denies any shortness of breath, lung sounds are clear, lower extremity edema has significantly improved. On 10-20-2020 patient seen in follow-up on selective care unit. She is doing much easier, she has been diuresed, she is actually looking a little bit dry on today's exam, she is on room air, denies any shortness of breath or chest pain. She is in -3 L over last 24 hours, lower and upper extremity edema has significantly improved, today's labs have been reviewed showing sodium of 133, potassium is 3.2, CO2 is 35, chloride is 90, creatinine is up slightly, at 1.46, and BUN is 31. Final blood culture came back positive for MSSA, vancomycin has been discontinued, patient is currently on ceftriaxone. No altered mentation, no fever or chills, patient was started on Diamox for metabolic alkalosis. Nephrology is following On 10/21/2020 patient seen in follow-up on selective care unit, she is lethargic today, but does not appear to be in any acute distress, she is on room air, breathing comfortably, and pulse ox is 93%, lung sounds are clear, diminished at the bases, she's been afebrile, blood pressure is stable. She continues to diurese, she is in -2.4 L fluid balance over the last 24 hours. The diuretics have been discontinued, she remains on Rocephin for MSSA bacteremia, she is on oral anticoagulation for history of chronic A. fib. She's had no acute events overnight. Patient appears to be very weak, debilitated, bit more sleepy today than yesterday. Clinically appears to be a bit dry. These labs have been reviewed, white count 7.9, hemoglobin is 10.7, sodium is 1 34, potassium is 3.3 and is being replaced per protocol, CO2 is 33, renal function is relatively stable, with slight increase in creatinine up to 1.5. On 10/22/2020 patient seen in follow-up on [facility] care unit, she is very lethargic today, she arouses to repeated verbal stimulation, she is slow to respond, seems very encephalopathic. Does not appear to be in any respiratory distress, remains on room air, her pulse ox is 97%, respirations and nonlabored, lung sounds are positive for fine rales in bilateral bases, she's had no fever or chills, blood pressure is been stable. She remains off all diuretics, still seems to be clinically dry, renal profile slightly improved today compared to yesterday, B1 is 26, creatinine is 1.41. Potassium is 135, chloride is 94, CO2 is 34, patient is receiving 0.9 normal saline at a rate of 10 mL's per hour. She continues on IV Rocephin for staph epidermidis bacteremia, follow blood culture has shown no growth. Urine culture showed yeast, Genia glabrata, possible contamination or colonization, ID service is following. Chest x-ray today shows patchy perihilar and basilar infiltrates no significant change. But no worsening dyspnea, no cough, no compressive chest pain. Overall prognosis is extremely guarded, patient remains a full code at this time, she has multiple comorbidities, she has had recurrent admissions for acute exacerbation of CHF, she has significant valvular heart disease, is a poor candidate for any surgical intervention. Patient has significant medical debility. Nursing staff reports that patient resides in the [facility] full-time, as the family is unable to care for her at home Objective - Vital Signs Vital signs: Vital Signs Temp 96.9 F L 10/22/20 09:15 Pulse 87 10/22/20 09:15 Resp 16 10/22/20 09:15 BP 93/58 10/22/20 09:15 Pulse Ox 97 10/22/20 09:15 Intake & Output 10/21/20 10/22/20 10/22/20 18:59 06:59 18:59 Intake Total 530 0 Output Total 1045 Balance 530 -1045 0 Weight 93.5 kg 91 kg Intake: IV 530 0.9 80 Potassium Chloride 10 meq 400 In Water For Injection 1 100ml.bag @ 100 mls/hr IVPB Q1HR LOLY Rx#: [id number] cefTRIAXone 1 gm In 50 Sodium Chloride 0.9% 50 ml @ 100 mls/hr IVPB Q24HR LOLY Rx#:[id number] Oral 0 0 Output: Urine 1045 Other: Voiding Method Indwelling Catheter Indwelling Catheter Indwelling Catheter # Bowel Movements 1 - Exam GENERAL EXAM: Encephalopathic, drowsy, very pleasant, 75-year-old white female, on room air, with a pulse ox of 97% comfortable in no apparent distress. HEAD: Normocephalic/atraumatic. EYES: Normal reaction of pupils, equal size. Conjunctiva pink, sclera white. NOSE: Clear with pink turbinates. THROAT: No erythema or exudates. NECK: No masses, no JVD, no thyroid enlargement, no adenopathy. CHEST: No chest wall deformity. Symmetrical expansion. LUNGS: Equal air entry with no crackles, wheeze, rhonchi or dullness. CVS: Regular rate and rhythm, normal S1 and S2, no gallops, no murmurs, no rubs ABDOMEN: Soft, nontender. No hepatosplenomegaly, normal bowel sounds, no guarding or rigidity. EXTREMITIES: No clubbing, chronic lower extremity edema, and chronic thickening of skin and chronic venous stasis changes in lower extremities, edema has improved after extensive diuresis and there is some wrinkles on her skin, no cyanosis, 2+ pulses and upper and lower extremities. MUSCULOSKELETAL: Muscle strength and tone normal. SPINE: No scoliosis or deformity SKIN: No rashes CENTRAL NERVOUS SYSTEM: Encephalopathic, drowsy. No focal deficits, tone is normal in all 4 extremities. - Labs CBC & Chem 7: 10/21/20 07:36 10/22/20 09:00 Labs: Abnormal Lab Results - Last 24 Hours (Table) 10/21/20 10/22/20 Range/Units 20:11 09:00 Sodium 135 L (137-145) mmol/L Chloride 94 L (98-107) mmol/L Carbon Dioxide 34 H (22-30) mmol/L BUN 26 H (7-17) mg/dL Creatinine 1.41 H (0.52-1.04) mg/dL POC Glucose (mg/dL) 135 H (75-99) mg/dL Microbiology - Last 24 Hours (Table) 10/18/20 17:22 Urine Culture - Final Urine,Catheterized Genia glabrata 10/20/20 07:07 Blood Culture - Preliminary Blood No Growth after 48 hours Assessment and Plan Plan: Assessment: #1. Altered mental status, multifactorial, related to metabolic encephalopathy, hypothermia, acute kidney injury, recurrent urinary tract infection, and acute exacerbation of chronic diastolic CHF. Recovered #2. Generalized weakness, possible normal pressure hydrocephalus, and patient is to have outpatient follow-up with the neurosurgeon #3. Acute on chronic diastolic CHF patient has been diuresed sufficiently, currently off the diuretics #4. Chronic kidney disease stage III #5. Recurrent urinary tract infection #6. History of lymphedema #7. History of hypothyroidism #8. Chronic A. fib on Eliquis #9. Gram-positive bacteremia, coag-negative staph #10. Acute hypothermia, has improved #11. Sick sinus syndrome with a pacemaker insertion #12. Fibromyalgia #13. Iron deficiency anemia #14. Hypothyroidism #15. Valvular heart disease, moderate to severe aortic stenosis, moderate mitral regurg, severe tricuspid regurg, and severe pulmonary hypertension with PA systolic of 89 mmHg Plan: Vital signs have been stable, patient remains on room air, today's chest x-ray has been reviewed and shows stable findings of perihilar infiltrates without significant change, follow blood cultures have shown no growth, patient has had no fever or chills, discharge is pending back to [facility]. Overall prognosis is very guarded, code status should be addressed, and hospice and palliative care should be offered related to multiple readmissions, overall significant general medical debility, multiple comorbidities. I performed a history & physical examination of the patient and discussed their management with my nurse practitioner, Imleda Navarro. I reviewed the nurse practitioner's note and agree with the documented findings and plan of care. Lung sounds are positive for diminished breath sounds. The findings and the impression was discussed with the patient. I attest to the documentation by the nurse practitioner. Time with Patient: Less than 30
--- NOTE | 2020-10-22 15:45 | PN ---
PROGRESS NOTE The patient is seen for followup for acute kidney injury on top of chronic kidney disease. She is currently sleeping. The patient is arousable but lethargic. Patient's Lasix has been held. She has been diuresed. Renal function is fairly stable. PHYSICAL EXAMINATION: On examination today, the patient opens her eyes but she is sleepy. Blood pressure 93/58, heart rate 87 per minute. She is afebrile. EXAMINATION OF THE HEART: S1, S2. EXAMINATION OF THE LUNGS: Decreased breath sounds at bases. Abdomen is soft, obese. Examination of lower extremities much improved edema. Chronic skin changes noted. LABS: Labs show sodium 135, potassium 3.7, chloride 94, CO2 is 34, BUN 26, creatinine 1.4. ASSESSMENT: 1. Acute kidney injury mostly cardiorenal currently improved, renal function stable for the last 3-4 days. 2. Volume overload now improved. Lasix is on hold. 3. Bilateral lower extremity cellulitis from last admission, now improved. 4. Metabolic alkalosis, status post Diamox. PLAN: Continue off of Lasix for now. Encourage increased oral intake. Overall prognosis is guarded. MMODL / IJN: [id number] /
--- NOTE | 2020-10-23 15:02 | CDI ---
Documentation Clarification Form Date: 10/23/2020 02:57:00 PM From: Christina Nava CCS Phone: If you have a question about this query, please contact Estella Jackson Equipment Records Supervisor at [phone] between 8am and 5pm Admit Date: 10/15/2020 01:58:00 PM Patient Name: Livier Kilgore Visit Number: [id number] Discharge Date: 10/22/2020 02:08:00 PM ATTENTION: The Clinical Documentation Specialists (CDI) and [facility] Coding Staff appreciate your assistance in clarifying documentation. Please respond to the clarification below the line at the bottom and electronically sign. The CDI & [facility] Coding staff will review the response and follow-up if needed. Please note: Queries are made part of the Legal Health Record. If you have any questions, please contact the author of this message via ITS. Dr. Kamaljit Krause Conflicting documentation has been found in the medical record: PN 10/17 documents: Gram-positive bacteremia, and sepsis, likely source could be urine PN 10/18 documents: .Patient with positive blood culture with coagulase negative Staph, likely skin contaminant has been no clinical disease to go along with it.Vancomycin discontinued. 2.Patient with possible urinary tract infection, positive urinalysis, covered with Rocephin, to continue. DS documents: Gram-positive bacteremia.Coagulase-negative staph.Patient remains on vancomycin.Infectious disease is following repeat cultures have been ordered. Repeat cultures negative.Discussed case with infectious disease Dr. Lovell no need for antibiotics upon discharge History/Risk Factors: UTI, CHF, HTN, CKD, ERLINDA, Morbid Obesity Clinical Indicators: Blood culture Staphylococcus epidermidis Labs: WBC 4.6, 5.4, 5.7- Lactic Acid 1.9 Vitals: BP 90/53, RR 18, NC 56, O2 Sat 95, Temp 94.5 Treatment: Rocephin 1 gm IV 10/16-10/22, Vancomycin 1,750 mg IV 10/16-10/18 In your opinion, what is the most clinically appropriate diagnosis for this patient? Sepsis due to UTI Sepsis due to Bacteremia (positive blood culture) Other explanation of clinical findings Unable to determine (no explanation for clinical findings) No evidence of sepsis Patient had a urinary tract infection Positive blood culture for coagulase-negative staph is a contaminant [facility]
== END 2020-10-22 14:08 | DRG 291 ==
LOC: EC 12:56 → 3SCARD 13:58
PROVIDERS: ADMIT Internal Medicine; ATTEND Internal Medicine
DX: I13.0 Hypertensive heart and chronic kidney disease with heart failure and stage 1 through stage 4 chronic kidney disease, or unspecified chronic kidney disease (principal); I50.33 Acute on chronic diastolic (congestive) heart failure; G93.41 Metabolic encephalopathy; N17.9 Acute kidney failure, unspecified; G91.2 (Idiopathic) normal pressure hydrocephalus; E87.3 Alkalosis; I48.19 Other persistent atrial fibrillation; L03.115 Cellulitis of right lower limb; L03.116 Cellulitis of left lower limb; N39.0 Urinary tract infection, site not specified; Z68.42 Body mass index [BMI] 45.0-49.9, adult; I49.5 Sick sinus syndrome; I27.22 Pulmonary hypertension due to left heart disease; D63.1 Anemia in chronic kidney disease; I95.89 Other hypotension; E11.22 Type 2 diabetes mellitus with diabetic chronic kidney disease; F03.90 Unspecified dementia, unspecified severity, without behavioral disturbance, psychotic disturbance, mood disturbance, and anxiety; I42.9 Cardiomyopathy, unspecified; Z79.01 Long term (current) use of anticoagulants; N18.30 Chronic kidney disease, stage 3 unspecified; E66.01 Morbid (severe) obesity due to excess calories; M79.7 Fibromyalgia; M19.90 Unspecified osteoarthritis, unspecified site; Z20.822 Contact with and (suspected) exposure to COVID-19; R68.0 Hypothermia, not associated with low environmental temperature; M81.0 Age-related osteoporosis without current pathological fracture; I89.0 Lymphedema, not elsewhere classified; E03.9 Hypothyroidism, unspecified; M10.9 Gout, unspecified; E87.6 Hypokalemia; R74.01 Elevation of levels of liver transaminase levels; I08.3 Combined rheumatic disorders of mitral, aortic and tricuspid valves; K44.9 Diaphragmatic hernia without obstruction or gangrene; T50.1X5A Adverse effect of loop [high-ceiling] diuretics, initial encounter; Z71.3 Dietary counseling and surveillance; Z79.899 Other long term (current) drug therapy; Z79.890 Hormone replacement therapy; Z86.73 Personal history of transient ischemic attack (TIA), and cerebral infarction without residual deficits; Z87.01 Personal history of pneumonia (recurrent); Z85.828 Personal history of other malignant neoplasm of skin; Z90.710 Acquired absence of both cervix and uterus; Z90.49 Acquired absence of other specified parts of digestive tract; Z98.42 Cataract extraction status, left eye; Z98.41 Cataract extraction status, right eye; Z98.890 Other specified postprocedural states; Z87.891 Personal history of nicotine dependence; Z95.0 Presence of cardiac pacemaker; Z96.659 Presence of unspecified artificial knee joint; Z87.440 Personal history of urinary (tract) infections; Z88.5 Allergy status to narcotic agent; Z88.8 Allergy status to other drugs, medicaments and biological substances; Z91.040 Latex allergy status; Z82.0 Family history of epilepsy and other diseases of the nervous system; Z80.8 Family history of malignant neoplasm of other organs or systems
CPT/HCPCS: 36415; 51702; 70450; 71045; 71046; 80048; 80053; 80202; 81001; 82533; 82550; 82565; 83605; 83735; 83880; 84132; 84439; 84443; 84484; 85025; 85610; 85730; 86140; 87040; 87077; 87086; 87186; 87635; 93005; 94760; 96365; 96366; 99285

== ENCOUNTER 2020-11-30 13:46 | Observation (INO) | payer MEDICARE ==
--- NOTE | 2020-11-30 14:05 | ED ---
General Adult HPI - General Chief complaint: Recheck/Abnormal Lab/Rx Stated complaint: Abn Labs Time Seen by Provider: 11/30/20 13:46 Source: patient, EMS, RN notes reviewed, old records reviewed Mode of arrival: EMS Limitations: altered mental status - History of Present Illness Initial comments: This is a 75-year-old female who presents emergency Department via [facility] because the patient was altered and less responsive than normal. We were also told that her BNP was elevated. Patient herself is unable to give any history. This is all the history we were able to get at this time no patient's family members or caregivers were with the patient. - Related Data Home Medications Medication Instructions Recorded Confirmed Tolterodine Tartrate [Detrol LA] 4 mg PO DAILY 09/30/20 11/30/20 Midodrine [ProAmatine] 10 mg PO TID@0500,1300,2100 10/15/20 11/30/20 Acetaminophen Tab [Tylenol] 650 mg PO Q6H PRN 11/30/20 11/30/20 Ipratropium-Albuterol Nebulize 3 ml INHALATION RT-Q6H PRN 11/30/20 11/30/20 [Duoneb 0.5 mg-3 mg/3 ml Soln] Levothyroxine Sodium [Synthroid] 25 mcg PO DAILY 11/30/20 11/30/20 Magnesium Hydroxide [Milk of 2,400 mg PO DAILY PRN 11/30/20 11/30/20 Magnesia] Multivitamins, Thera [Multivitamin 1 tab PO DAILY 11/30/20 11/30/20 (formulary)] Omeprazole 20 mg PO DAILY@0500 11/30/20 11/30/20 Prostat 30 ml PO BID 11/30/20 11/30/20 Torsemide [Demadex] 20 mg PO BID 11/30/20 11/30/20 Previous Rx's Medication Instructions Recorded Apixaban [Eliquis] 5 mg PO BID 30 Days #60 tab 10/15/18 Metoprolol Tartrate [Lopressor] 25 mg PO BID tab 10/21/20 Potassium Chloride [Klor-Con 20] 20 meq PO DAILY #0 10/21/20 Allergies Allergy/AdvReac Type Severity Reaction Status Date / Time codeine Allergy Unknown Verified 11/30/20 14:13 latex Allergy Rash/Hives Verified 11/30/20 14:13 hydrocodone bitartrate AdvReac Nausea & Verified 11/30/20 14:13 [From Vicodin] Vomiting & Diarrhea prednisone AdvReac brought on Verified 11/30/20 14:13 diabetes cortisone injections AdvReac brought on Uncoded 09/30/20 16:32 diabetes sedatives AdvReac "I could Uncoded 09/30/20 16:32 not wake up" steroids AdvReac Hallucinati Uncoded 09/30/20 16:32 ons Review of Systems ROS Statement: Those systems with pertinent positive or pertinent negative responses have been documented in the HPI. ROS Other: All systems not noted in ROS Statement are negative. Past Medical History Past Medical History: Cancer, Heart Failure, CVA/TIA, Diabetes Mellitus, Fibromyalgia, Osteoarthritis (OA), Pneumonia, Renal Disease, Skin Disorder Additional Past Medical History / Comment(s): hx hiatal hernia, diarrhea, leakage of urine/urgency, "dry skin", anemia, skin cancer History of Any Multi-Drug Resistant Organisms: None Reported Past Surgical History: Appendectomy, Cholecystectomy, Heart Catheterization, Hysterectomy, Joint Replacement, Orthopedic Surgery, Pacemaker, Tonsillectomy, Tubal Ligation Additional Past Surgical History / Comment(s): cyril heel spurs, left shoulder rotator cuff, bone biopsy, cyril cataracts Past Anesthesia/Blood Transfusion Reactions: Previous Problems w/ Anesthesia, Family History of Problems w/ Anesthesia, Postoperative Nausea & Vomiting (PONV) Additional Past Anesthesia/Blood Transfusion Reaction / Comment(s): "could not wake for several days after knee replacement". brother PONV. Type of Cardiac Device: Permanent Pacemaker Device Placement Date:: 04/2009 Past Psychological History: No Psychological Hx Reported Smoking Status: Never smoker Past Alcohol Use History: None Reported Past Drug Use History: None Reported - Past Family History Father Family Medical History: Cancer Additional Family Medical History / Comment(s): skin Mother Family Medical History: Seizure Disorder General Exam - General Exam Comments Initial Comments: GENERAL: Patient is well-developed and well-nourished. Patient is nontoxic and well- hydrated and is in no acute distress. ENT: Neck is soft and supple. No significant lymphadenopathy is noted. Oropharynx is clear. Moist mucous membranes. Neck has full range of motion without eliciting any pain. EYES: The sclera were anicteric and conjunctiva were pink and moist. Extraocular movements were intact and pupils were equal round and reactive to light. Eyelids were unremarkable. PULMONARY: Patient's effort with breath sounds is very poor difficult to hear breath sounds but it does appear to be some crackles in the bases CARDIOVASCULAR: There is a regular rate and rhythm without any murmurs gallops or rubs. ABDOMEN: Soft and nontender with normal bowel sounds. SKIN: Skin is clear with no lesions or rashes and otherwise unremarkable. NEUROLOGIC: Patient is alert and oriented 1. Unable to assess her cranial nerves or motor sensory is she is not following simple commands. MUSCULOSKELETAL: Normal extremities with adequate strength and full range of motion. LYMPHATICS: Bilateral legs very large indicative of lymphedema PSYCHIATRIC: Unable to assess Course Vital Signs 11/30/20 13:48 Temperature 97.8 F Pulse Rate 103 H Respiratory 18 Rate Blood Pressure 116/66 O2 Sat by Pulse 97 Oximetry Medical Decision Making - Medical Decision Making EKG shows atrial fibrillation at 99 bpm QRS is 70 QT interval 374 QTC is 479. EKG shows T-wave inversions in 1 and aVL as well as precordial leads V5 and V6. Chest x-ray shows pulmonary edema. I spoke with Dr. Parrish he agreed to admit the patient admitted the patient wrote admitting orders - Lab Data Result diagrams: 11/30/20 14:32 11/30/20 14:32 Lab Results 11/30/20 11/30/20 11/30/20 Range/Units 14:32 14:32 14:32 WBC 5.5 (3.8-10.6) k/uL RBC 4.63 (3.80-5.40) m/uL Hgb 10.3 L (11.4-16.0) gm/dL Hct 32.8 L (34.0-46.0) % MCV 70.7 L (80.0-100.0) fL MCH 22.2 L (25.0-35.0) pg MCHC 31.4 (31.0-37.0) g/dL RDW 18.5 H (11.5-15.5) % Plt Count 356 (150-450) k/uL MPV 7.5 Neutrophils % 62 % Lymphocytes % 12 % Monocytes % 12 % Eosinophils % 11 % Basophils % 1 % Neutrophils # 3.4 (1.3-7.7) k/uL Lymphocytes # 0.6 L (1.0-4.8) k/uL Monocytes # 0.7 (0-1.0) k/uL Eosinophils # 0.6 (0-0.7) k/uL Basophils # 0.1 (0-0.2) k/uL Hypochromasia Marked Poikilocytosis Slight Anisocytosis Slight Microcytosis Marked PT 14.5 H (9.0-12.0) sec INR 1.4 H (<1.2) APTT 27.6 (22.0-30.0) sec Sodium (137-145) mmol/L Potassium (3.5-5.1) mmol/L Chloride (98-107) mmol/L Carbon Dioxide (22-30) mmol/L Anion Gap mmol/L BUN (7-17) mg/dL Creatinine (0.52-1.04) mg/dL Est GFR (CKD-EPI)AfAm (>60 ml/min/1.73 sqM) Est GFR (CKD-EPI)NonAf (>60 ml/min/1.73 sqM) Glucose (74-99) mg/dL Calcium (8.4-10.2) mg/dL Total Bilirubin (0.2-1.3) mg/dL AST (14-36) U/L ALT (4-34) U/L Alkaline Phosphatase (38-126) U/L Troponin I (0.000-0.034) ng/mL NT-Pro-B Natriuret Pep pg/mL Total Protein (6.3-8.2) g/dL Albumin (3.5-5.0) g/dL Urine Color Light Yellow Urine Appearance Clear (Clear) Urine pH 5.0 (5.0-8.0) Ur Specific [place] 1.002 (1.001-1.035) Urine Protein Negative (Negative) Urine Glucose (UA) Negative (Negative) Urine Ketones Negative (Negative) Urine Blood Negative (Negative) Urine Nitrite Negative (Negative) Urine Bilirubin Negative (Negative) Urine Urobilinogen <2.0 (<2.0) mg/dL Ur Leukocyte Esterase Moderate H (Negative) Urine RBC 2 (0-5) /hpf Urine WBC 7 H (0-5) /hpf Urine Bacteria Few H (None) /hpf Hyaline Casts 10 H (0-2) /lpf Urine Mucus Rare H (None) /hpf Urine Opiates Screen Detected H (NotDetected) Ur Oxycodone Screen Not Detected (NotDetected) Urine Methadone Screen Not Detected (NotDetected) Ur Propoxyphene Screen Not Detected (NotDetected) Ur Barbiturates Screen Not Detected (NotDetected) U Tricyclic Antidepress Not Detected (NotDetected) Ur Phencyclidine Scrn Not Detected (NotDetected) Ur Amphetamines Screen Not Detected (NotDetected) U Methamphetamines Scrn Not Detected (NotDetected) U Benzodiazepines Scrn Not Detected (NotDetected) Urine Cocaine Screen Not Detected (NotDetected) U Marijuana (THC) Screen Not Detected (NotDetected) Coronavirus (PCR) (Not Detectd) 11/30/20 11/30/20 11/30/20 Range/Units 14:32 14:32 14:32 WBC (3.8-10.6) k/uL RBC (3.80-5.40) m/uL Hgb (11.4-16.0) gm/dL Hct (34.0-46.0) % MCV (80.0-100.0) fL MCH (25.0-35.0) pg MCHC (31.0-37.0) g/dL RDW (11.5-15.5) % Plt Count (150-450) k/uL MPV Neutrophils % % Lymphocytes % % Monocytes % % Eosinophils % % Basophils % % Neutrophils # (1.3-7.7) k/uL Lymphocytes # (1.0-4.8) k/uL Monocytes # (0-1.0) k/uL Eosinophils # (0-0.7) k/uL Basophils # (0-0.2) k/uL Hypochromasia Poikilocytosis Anisocytosis Microcytosis PT (9.0-12.0) sec INR (<1.2) APTT (22.0-30.0) sec Sodium 138 (137-145) mmol/L Potassium 4.4 (3.5-5.1) mmol/L Chloride 102 (98-107) mmol/L Carbon Dioxide 27 (22-30) mmol/L Anion Gap 9 mmol/L BUN 30 H (7-17) mg/dL Creatinine 1.08 H (0.52-1.04) mg/dL Est GFR (CKD-EPI)AfAm 57 (>60 ml/min/1.73 sqM) Est GFR (CKD-EPI)NonAf 50 (>60 ml/min/1.73 sqM) Glucose 97 (74-99) mg/dL Calcium 8.5 (8.4-10.2) mg/dL Total Bilirubin 1.1 (0.2-1.3) mg/dL AST 39 H (14-36) U/L ALT 13 (4-34) U/L Alkaline Phosphatase 221 H (38-126) U/L Troponin I 0.013 (0.000-0.034) ng/mL NT-Pro-B Natriuret Pep 7500 pg/mL Total Protein 7.1 (6.3-8.2) g/dL Albumin 3.4 L (3.5-5.0) g/dL Urine Color Urine Appearance (Clear) Urine pH (5.0-8.0) Ur Specific [place] (1.001-1.035) Urine Protein (Negative) Urine Glucose (UA) (Negative) Urine Ketones (Negative) Urine Blood (Negative) Urine Nitrite (Negative) Urine Bilirubin (Negative) Urine Urobilinogen (<2.0) mg/dL Ur Leukocyte Esterase (Negative) Urine RBC (0-5) /hpf Urine WBC (0-5) /hpf Urine Bacteria (None) /hpf Hyaline Casts (0-2) /lpf Urine Mucus (None) /hpf Urine Opiates Screen (NotDetected) Ur Oxycodone Screen (NotDetected) Urine Methadone Screen (NotDetected) Ur Propoxyphene Screen (NotDetected) Ur Barbiturates Screen (NotDetected) U Tricyclic Antidepress (NotDetected) Ur Phencyclidine Scrn (NotDetected) Ur Amphetamines Screen (NotDetected) U Methamphetamines Scrn (NotDetected) U Benzodiazepines Scrn (NotDetected) Urine Cocaine Screen (NotDetected) U Marijuana (THC) Screen (NotDetected) Coronavirus (PCR) (Not Detectd) 11/30/20 Range/Units 16:24 WBC (3.8-10.6) k/uL RBC (3.80-5.40) m/uL Hgb (11.4-16.0) gm/dL Hct (34.0-46.0) % MCV (80.0-100.0) fL MCH (25.0-35.0) pg MCHC (31.0-37.0) g/dL RDW (11.5-15.5) % Plt Count (150-450) k/uL MPV Neutrophils % % Lymphocytes % % Monocytes % % Eosinophils % % Basophils % % Neutrophils # (1.3-7.7) k/uL Lymphocytes # (1.0-4.8) k/uL Monocytes # (0-1.0) k/uL Eosinophils # (0-0.7) k/uL Basophils # (0-0.2) k/uL Hypochromasia Poikilocytosis Anisocytosis Microcytosis PT (9.0-12.0) sec INR (<1.2) APTT (22.0-30.0) sec Sodium (137-145) mmol/L Potassium (3.5-5.1) mmol/L Chloride (98-107) mmol/L Carbon Dioxide (22-30) mmol/L Anion Gap mmol/L BUN (7-17) mg/dL Creatinine (0.52-1.04) mg/dL Est GFR (CKD-EPI)AfAm (>60 ml/min/1.73 sqM) Est GFR (CKD-EPI)NonAf (>60 ml/min/1.73 sqM) Glucose (74-99) mg/dL Calcium (8.4-10.2) mg/dL Total Bilirubin (0.2-1.3) mg/dL AST (14-36) U/L ALT (4-34) U/L Alkaline Phosphatase (38-126) U/L Troponin I (0.000-0.034) ng/mL NT-Pro-B Natriuret Pep pg/mL Total Protein (6.3-8.2) g/dL Albumin (3.5-5.0) g/dL Urine Color Urine Appearance (Clear) Urine pH (5.0-8.0) Ur Specific [place] (1.001-1.035) Urine Protein (Negative) Urine Glucose (UA) (Negative) Urine Ketones (Negative) Urine Blood (Negative) Urine Nitrite (Negative) Urine Bilirubin (Negative) Urine Urobilinogen (<2.0) mg/dL Ur Leukocyte Esterase (Negative) Urine RBC (0-5) /hpf Urine WBC (0-5) /hpf Urine Bacteria (None) /hpf Hyaline Casts (0-2) /lpf Urine Mucus (None) /hpf Urine Opiates Screen (NotDetected) Ur Oxycodone Screen (NotDetected) Urine Methadone Screen (NotDetected) Ur Propoxyphene Screen (NotDetected) Ur Barbiturates Screen (NotDetected) U Tricyclic Antidepress (NotDetected) Ur Phencyclidine Scrn (NotDetected) Ur Amphetamines Screen (NotDetected) U Methamphetamines Scrn (NotDetected) U Benzodiazepines Scrn (NotDetected) Urine Cocaine Screen (NotDetected) U Marijuana (THC) Screen (NotDetected) Coronavirus (PCR) Not Detected (Not Detectd) Disposition Clinical Impression: Pulmonary edema, Altered mental status Disposition: ADMITTED IP TO THIS HOSP Referrals: Kamaljit Krause MD [Primary Care Provider] - 1-2 days Time of Disposition: 17:42
--- NOTE | 2020-11-30 14:53 | XR ---
EXAMINATION TYPE: XR chest 2V DATE OF EXAM: 11/30/2020 COMPARISON: 10/22/2020 HISTORY: Altered mental status FINDINGS: There are bilateral pleural effusions with cardiomegaly and bibasilar infiltrate. There is a diffuse interstitial pattern. Cardiac device is seen and there is atherosclerotic change aorta. Diffuse oste openia. No pneumothorax. IMPRESSION: 1. Diffuse pleural-parenchymal changes correlate for CHF or diffuse pneumonia.
[2020-11-30 15:00] LABS: INR 1.4 (<1.2); Partial Thromboplastin Time 27.6 sec (22.0-30.0); Prothrombin Time 14.5 sec (9.0-12.0)
[2020-11-30 15:02] LABS: Albumin 3.4 g/dL (3.5-5.0); Calcium 8.5 mg/dL (8.4-10.2); Total Bilirubin 1.1 mg/dL (0.2-1.3); Total Protein 7.1 g/dL (6.3-8.2)
[2020-11-30 15:04] LABS: Anisocytosis Slight; Basophils # (A) 0.1 k/uL (0-0.2); Basophils % (A) 1 %; Eosinophils # (A) 0.6 k/uL (0-0.7); Eosinophils % (A) 11 %; HCT 32.8 % (34.0-46.0); HGB 10.3 gm/dL (11.4-16.0); Hypochromasia Marked; Lymphocytes # (A) 0.6 k/uL (1.0-4.8); Lymphocytes % (A) 12 %; MCH 22.2 pg (25.0-35.0); MCHC 31.4 g/dL (31.0-37.0); MCV 70.7 fL (80.0-100.0); Mean Platelet Volume 7.5; Microcytosis Marked; Monocytes # (A) 0.7 k/uL (0-1.0); Monocytes % (A) 12 %; Neutrophils # (A) 3.4 k/uL (1.3-7.7); Neutrophils % (A) 62 %; Platelet Count 356 k/uL (150-450); Poikilocytosis Slight; RBC 4.63 m/uL (3.80-5.40); RDW 18.5 % (11.5-15.5); WBC 5.5 k/uL (3.8-10.6)
[2020-11-30 15:16] LABS: Potassium 4.4 mmol/L (3.5-5.1)
[2020-11-30 15:17] LABS: Appearance,Urine Clear (Clear); Bacteria,Urine Few /hpf; Bilirubin,Urine Negative (Negative); Blood,Urine Negative (Negative); Color,Urine Light Yellow; Glucose,Urine (UA) Negative (Negative); Hyaline Casts,Urine 10 /lpf (0-2); Ketones,Urine Negative (Negative); Leukocyte Esterase,Urine Moderate (Negative); Mucus,Urine Rare /hpf; Nitrite,Urine Negative (Negative); Protein,Urine Negative (Negative); RBC,Urine 2 /hpf (0-5); Specific Gravity,Urine 1.002 (1.001-1.035); Urobilinogen,Urine <2.0 mg/dL (<2.0); WBC,Urine 7 /hpf (0-5)
[2020-11-30 15:25] LABS: Amphetamine Screen,Urine Not Detected (NotDetected); Barbiturate Screen,Urine Not Detected (NotDetected); Benzodiazepines Screen,Urine Not Detected (NotDetected); Cocaine Screen,Urine Not Detected (NotDetected); Methadone Screen, Urine Not Detected (NotDetected); Opiate Screen,Urine Detected (NotDetected); Oxycodone Screen, Urine Not Detected (NotDetected); Phencyclidine Screen,Urine Not Detected (NotDetected); Tricyclic Antidepressant,Urine Not Detected (NotDetected); Urn Cannabinoid Scrn Not Detected (NotDetected)
[2020-11-30] MEDS ORDERED: IPRATROPIUM-ALBUTEROL 3 ML NEB INHALATION PRN (17:22)
[2020-11-30] MEDS ORDERED: MAGNESIUM HYDROXIDE 2,400 MG/10 ML CUP PO PRN (17:22)
[2020-11-30] MEDS ORDERED: FUROSEMIDE 10 MG/ML 4 ML VIAL IV SCH (17:23)
--- NOTE | 2020-11-30 17:34 | P.HPIM ---
History of Present Illness 75-year-old female was brought ER because of abnormal BNP as per the nurse who accepted the patient in ER. Patient is unable to provide any history to me. We do not know her baseline, in the process of contacting skilled nursing regarding her baseline mental status was told by a physician that patient the is less response to than usual patient does has bilateral pedal edema. Strength in her extensive medical history with diastolic dysfunction severe pulmonary hypertension and severe TR patient the BNP: 3 days ago which was done at the skilled nursing is around 7500 before that it was 7200 and the previous BMPs are lower than that. Because of concerns of altered mental status patient underwent workup for sepsis urinalysis is not impressive for UTI except for a few bacteria, Covid is negative for chest x-ray showing the some diffuse parenchymal changes may have CHF. Urine drug screen is just positive for opiates, trach as per the home medication list patient is not on any opiates from the facility.. Review of Systems Unable to obtain due to her clinical condition Past Medical History Past Medical History: Cancer, Heart Failure, CVA/TIA, Diabetes Mellitus, Fibromyalgia, Osteoarthritis (OA), Pneumonia, Renal Disease, Skin Disorder Additional Past Medical History / Comment(s): hx hiatal hernia, diarrhea, leakage of urine/urgency, "dry skin", anemia, skin cancer History of Any Multi-Drug Resistant Organisms: None Reported Past Surgical History: Appendectomy, Cholecystectomy, Heart Catheterization, Hysterectomy, Joint Replacement, Orthopedic Surgery, Pacemaker, Tonsillectomy, Tubal Ligation Additional Past Surgical History / Comment(s): cyril heel spurs, left shoulder rotator cuff, bone biopsy, cyril cataracts Past Anesthesia/Blood Transfusion Reactions: Previous Problems w/ Anesthesia, Family History of Problems w/ Anesthesia, Postoperative Nausea & Vomiting (PONV) Additional Past Anesthesia/Blood Transfusion Reaction / Comment(s): "could not wake for several days after knee replacement". brother PONV. Type of Cardiac Device: Permanent Pacemaker Device Placement Date:: 04/2009 Past Psychological History: No Psychological Hx Reported Smoking Status: Never smoker Past Alcohol Use History: None Reported Past Drug Use History: None Reported - Past Family History Father Family Medical History: Cancer Additional Family Medical History / Comment(s): skin Mother Family Medical History: Seizure Disorder Medications and Allergies Home Medications Medication Instructions Recorded Confirmed Type Apixaban [Eliquis] 5 mg PO BID 30 Days #60 tab 10/15/18 11/30/20 Rx Tolterodine Tartrate [Detrol LA] 4 mg PO DAILY 09/30/20 11/30/20 History Midodrine [ProAmatine] 10 mg PO TID@0500,1300,2100 10/15/20 11/30/20 History Metoprolol Tartrate [Lopressor] 25 mg PO BID tab 10/21/20 11/30/20 Rx Potassium Chloride [Klor-Con 20] 20 meq PO DAILY #0 10/21/20 11/30/20 Rx Acetaminophen Tab [Tylenol] 650 mg PO Q6H PRN 11/30/20 11/30/20 History Ipratropium-Albuterol Nebulize 3 ml INHALATION RT-Q6H PRN 11/30/20 11/30/20 History [Duoneb 0.5 mg-3 mg/3 ml Soln] Levothyroxine Sodium [Synthroid] 25 mcg PO DAILY 11/30/20 11/30/20 History Magnesium Hydroxide [Milk of 2,400 mg PO DAILY PRN 11/30/20 11/30/20 History Magnesia] Multivitamins, Thera [Multivitamin 1 tab PO DAILY 11/30/20 11/30/20 History (formulary)] Omeprazole 20 mg PO DAILY@0500 11/30/20 11/30/20 History Prostat 30 ml PO BID 11/30/20 11/30/20 History Torsemide [Demadex] 20 mg PO BID 11/30/20 11/30/20 History Allergies Allergy/AdvReac Type Severity Reaction Status Date / Time codeine Allergy Unknown Verified 11/30/20 14:13 latex Allergy Rash/Hives Verified 11/30/20 14:13 hydrocodone bitartrate AdvReac Nausea & Verified 11/30/20 14:13 [From Vicodin] Vomiting & Diarrhea prednisone AdvReac brought on Verified 11/30/20 14:13 diabetes cortisone injections AdvReac brought on Uncoded 09/30/20 16:32 diabetes sedatives AdvReac "I could Uncoded 09/30/20 16:32 not wake up" steroids AdvReac Hallucinati Uncoded 09/30/20 16:32 ons Physical Exam Vitals: Vital Signs Temp Pulse Resp BP Pulse Ox 11/30/20 13:48 97.8 F 103 H 18 116/66 97 Intake and Output 11/30/20 11/30/20 11/30/20 06:59 14:59 22:59 Other: Weight 108 kg PHYSICAL EXAMINATION: GENERAL: The patient is alert , mostly nonverbal doesn't answer any questions does appear to understand, not in any acute distress. Well developed, well nourished. Obese HEENT: Pupils are round and equally reacting to light. EOMI. No scleral icterus. No conjunctival pallor. Normocephalic, atraumatic. No pharyngeal erythema. No thyromegaly. CARDIOVASCULAR: S1 and S2 present. No murmurs, rubs, or gallops. Doesn't have elevated JVD PULMONARY: Chest is clear to auscultation, no wheezing or crackles. ABDOMEN: Soft, nontender, nondistended, normoactive bowel sounds. No palpable organomegaly. MUSCULOSKELETAL: No joint swelling or deformity. EXTREMITIES: No cyanosis, clubbing, since of bilateral pedal edema up is to be lymphedema and nonpitting edema mostly NEUROLOGICAL: Gross neurological examination did not reveal any focal deficits. SKIN: No rashes. Results CBC & Chem 7: 11/30/20 14:32 11/30/20 14:32 Labs: Abnormal Lab Results - Last 24 Hours (Table) 11/30/20 11/30/20 11/30/20 Range/Units 14:32 14:32 14:32 Hgb 10.3 L (11.4-16.0) gm/dL Hct 32.8 L (34.0-46.0) % MCV 70.7 L (80.0-100.0) fL MCH 22.2 L (25.0-35.0) pg RDW 18.5 H (11.5-15.5) % Lymphocytes # 0.6 L (1.0-4.8) k/uL PT 14.5 H (9.0-12.0) sec INR 1.4 H (<1.2) BUN (7-17) mg/dL Creatinine (0.52-1.04) mg/dL AST (14-36) U/L Alkaline Phosphatase (38-126) U/L Albumin (3.5-5.0) g/dL Ur Leukocyte Esterase Moderate H (Negative) Urine WBC 7 H (0-5) /hpf Urine Bacteria Few H (None) /hpf Hyaline Casts 10 H (0-2) /lpf Urine Mucus Rare H (None) /hpf Urine Opiates Screen Detected H (NotDetected) 11/30/20 Range/Units 14:32 Hgb (11.4-16.0) gm/dL Hct (34.0-46.0) % MCV (80.0-100.0) fL MCH (25.0-35.0) pg RDW (11.5-15.5) % Lymphocytes # (1.0-4.8) k/uL PT (9.0-12.0) sec INR (<1.2) BUN 30 H (7-17) mg/dL Creatinine 1.08 H (0.52-1.04) mg/dL AST 39 H (14-36) U/L Alkaline Phosphatase 221 H (38-126) U/L Albumin 3.4 L (3.5-5.0) g/dL Ur Leukocyte Esterase (Negative) Urine WBC (0-5) /hpf Urine Bacteria (None) /hpf Hyaline Casts (0-2) /lpf Urine Mucus (None) /hpf Urine Opiates Screen (NotDetected) Assessment and Plan Plan: Congestive heart failure, chronic diastolic dysfunction with acute exacerbation, patient will be started on IV Lasix 40 twice a day patient usually uses a torsemide 20 twice a day. -Possible metabolic encephalopathy baseline mental status is unknown and this metabolic encephalopathy is probably related to CHF. But all she has any -Severe pulmonary hypertension -Severe tricuspid regurgitation -Chronic kidney disease stage II with baseline creatinine around 1. Chronic kidney disease etiology is probably hypertension -Bilateral chronic lymphedema without any cellulitis -Hypothyroidism [place]-chronic A. 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
[2020-11-30] MEDS: FUROSEMIDE 10 MG/ML 4 ML VIAL IV SCH (19:02)
[2020-11-30] MEDS ORDERED: METOPROLOL TARTRATE 25 MG TAB PO SCH (21:00)
[2020-11-30] MEDS ORDERED: APIXABAN 5 MG TAB PO SCH (21:00)
[2020-12-01] MEDS ORDERED: PANTOPRAZOLE 40 MG TABLET PO SCH (05:00)
[2020-12-01 05:16] LABS: Calcium 8.8 mg/dL (8.4-10.2); Potassium 4.2 mmol/L (3.5-5.1)
[2020-12-01] MEDS: FUROSEMIDE 10 MG/ML 4 ML VIAL IV SCH (05:44)
[2020-12-01] MEDS ORDERED: LEVOTHYROXINE 25 MCG TAB PO SCH (06:30)
[2020-12-01] MEDS ORDERED: MIDODRINE 5 MG TAB PO SCH (07:30)
[2020-12-01] MEDS ORDERED: MULTIVITAMINS, THERA 1 EACH TAB PO SCH (09:00)
[2020-12-01] MEDS ORDERED: OXYBUTYNIN XL 5 MG TAB.ER.24 PO SCH (09:00)
[2020-12-01] MEDS ORDERED: POTASSIUM CHLORIDE ER 20 MEQ TAB.ER PO SCH (09:00)
[2020-12-01 11:30] VITALS: RESP 18
[2020-12-01 12:37] VITALS: BP 124/69; PULSE 78; TEMP 98.1
--- NOTE | 2020-12-01 12:59 | P.CRDCN ---
History of Present Illness History of present illness: This is a pleasant 75-year-old female past medical history significant for chronic diastolic heart failure, sick sinus syndrome status post permanent pacemaker implantation, chronic persistent atrial fibrillation, CVA, diabetes mellitus and fibromyalgia. She follows in the office at Dr. Dr. Ruby. Patient [facility] the emergency department [facility] with shortness of breath and altered mental status. Patient states she had increased fluid "seeping through her skin" and was confused. She is seen and examined at bedside in the emergency department. She is a poor historian. Appears confused, She is alert, oriented to person. She is unsure where she is and unsure where she lives. She responds with the year 1961. EKG- atrial fibrillation. Laboratory data reviewed, WBC 5.5, Hgb 10.3, Platelets 356, Sodium 139, K 4.2, sCr 1.25 (1.08 from yesterday), Troponin negative x 1, BNP 7500, urine tox positive for opiates, COVID-19 negative. Blood pressure 113/78 heart rate 79 afebrile maintaining oxygen saturation on room air. Chest X-ray Bilateral pleural effu sions with cardiomegaly and bibasilar infiltrate, correlate for CHF vs diffuse pneumonia Current home cardiac medication include Torsemide 20mg BID, potassium chloride 20meq daily, midodrine 10mg TID , metoprolol tartrate 25mg BID, Eliquis 5mg BID. Most recent echocardiogram obtained August 2020 revealed preserved LV systolic function with ejection fraction 55-60%, moderate exam with peak LVOT gradient of 24 mmHg, severely dilated left atrium, moderate to severe aortic stenosis with a mean gradient of 20 mmHg, moderate mitral regurgitation, severe tricuspid regurgitation and severe pulmonary hypertension with RVSP of 89 mmHg. Patient Currently being maintained on IV Lasix 40mg IV Q8hr, Eliquis 5mg BID, Metoprolol 25mg BID, midodrine 10mg ID, Potassium chloride 20meq daily. REVIEW OF SYSTEMS At the time of my exam: Patient unable to give an accurate review of systems, appears confused. CONSTITUTIONAL: Denies fever or chills. CARDIOVASCULAR: +shortness of breath Denies chest pain, orthopnea, PND or palpitations. RESPIRATORY: Denies cough. GASTROINTESTINAL: Denies abdominal pain, diarrhea, constipation, nausea or vomiting. MUSCULOSKELETAL: Denies myalgias. NEUROLOGIC: Denies numbness, tingling, headacbe or weakness. ENDOCRINE: Denies fatigue, weight change, polydipsia or polyurina. GENITOURINARY: Denies burning, hematuria or urgency with micturation. HEMATOLOGIC: Denies history of anemia or bleeding. PHYSICAL EXAMINATION CONSTITUTIONAL: No apparent distress. HEENT: Head is normocephalic. Mucous membranes of the mouth are moist. +JVD. No carotid bruit. CHEST EXAMINATION:Patient unable to take good deep breaths, Diminished on the bases, No rhonchi or wheezes. Respiration equal and unlabored. No wheezes, rales or rhonchi. HEART EXAMINATION: Regular rate and rhythm. S1, S2 heard. Systolic ejection murmur at the base and apex, no gallops or rub. ABDOMEN: Soft, nontender. Positive bowel sounds. EXTREMITIES: bilateral lower extremity edema suggestive of lymphedema. Pain with palpation to bilateral legs No clubbing or cyanosis. Peripheral pulses intact. SKIN: pale, multiple scratches over bilateral legs NEUROLOGIC EXAMINATION: Patient is awake, alert and oriented x3. ASSESSMENT Acute on chronic diastolic heart failure with preserved ejection fraction Generalized weakness Hypokalemia Chronic persistent atrial fibrillation on long-term anticoagulation Sick sinus syndrome status post permanent pacemaker implantation Chronic kidney disease Chronic lymphedema Moderate mitral regurgitation Moderate aortic stenosis Pulmonary hypertension CVA Diabetes mellitus PLAN -Continue IV diuresis - Lasix 40mg IV Q8hr -Continue to monitor BMP electrolytes and renal function -Continue home cardiac medications Eliquis, Metoprolol 25mg BID, midodrine 10mg TID at this time -Heart Healthy Diet, I/Os, Daily Weights -Further recommendations pending clinical course Nurse Practitioner note has been reviewed, I agree with a documented findings and plan of care. Patient was seen and examined. Past Medical History Past Medical History: Cancer, Heart Failure, CVA/TIA, Diabetes Mellitus, Fibromyalgia, Osteoarthritis (OA), Pneumonia, Renal Disease, Skin Disorder Additional Past Medical History / Comment(s): hx hiatal hernia, diarrhea, leakage of urine/urgency, "dry skin", anemia, skin cancer History of Any Multi-Drug Resistant Organisms: None Reported Past Surgical History: Appendectomy, Cholecystectomy, Heart Catheterization, Hysterectomy, Joint Replacement, Orthopedic Surgery, Pacemaker, Tonsillectomy, Tubal Ligation Additional Past Surgical History / Comment(s): cyril heel spurs, left shoulder rotator cuff, bone biopsy, cyril cataracts Past Anesthesia/Blood Transfusion Reactions: Previous Problems w/ Anesthesia, Family History of Problems w/ Anesthesia, Postoperative Nausea & Vomiting (PONV) Additional Past Anesthesia/Blood Transfusion Reaction / Comment(s): "could not wake for several days after knee replacement". brother PONV. Type of Cardiac Device: Permanent Pacemaker Device Placement Date:: 04/2009 Past Psychological History: No Psychological Hx Reported Smoking Status: Never smoker Past Alcohol Use History: None Reported Past Drug Use History: None Reported - Past Family History Father Family Medical History: Cancer Additional Family Medical History / Comment(s): skin Mother Family Medical History: Seizure Disorder Medications and Allergies Home Medications Medication Instructions Recorded Confirmed Type Apixaban [Eliquis] 5 mg PO BID 30 Days #60 tab 10/15/18 11/30/20 Rx Tolterodine Tartrate [Detrol LA] 4 mg PO DAILY 09/30/20 11/30/20 History Midodrine [ProAmatine] 10 mg PO TID@0500,1300,2100 10/15/20 11/30/20 History Metoprolol Tartrate [Lopressor] 25 mg PO BID tab 10/21/20 11/30/20 Rx Potassium Chloride [Klor-Con 20] 20 meq PO DAILY #0 10/21/20 11/30/20 Rx Acetaminophen Tab [Tylenol] 650 mg PO Q6H PRN 11/30/20 11/30/20 History Ipratropium-Albuterol Nebulize 3 ml INHALATION RT-Q6H PRN 11/30/20 11/30/20 History [Duoneb 0.5 mg-3 mg/3 ml Soln] Levothyroxine Sodium [Synthroid] 25 mcg PO DAILY 11/30/20 11/30/20 History Magnesium Hydroxide [Milk of 2,400 mg PO DAILY PRN 11/30/20 11/30/20 History Magnesia] Multivitamins, Thera [Multivitamin 1 tab PO DAILY 11/30/20 11/30/20 History (formulary)] Omeprazole 20 mg PO DAILY@0500 11/30/20 11/30/20 History Prostat 30 ml PO BID 11/30/20 11/30/20 History Torsemide [Demadex] 20 mg PO BID 11/30/20 11/30/20 History Allergies Allergy/AdvReac Type Severity Reaction Status Date / Time codeine Allergy Unknown Verified 11/30/20 14:13 latex Allergy Rash/Hives Verified 11/30/20 14:13 hydrocodone bitartrate AdvReac Nausea & Verified 11/30/20 14:13 [From Vicodin] Vomiting & Diarrhea prednisone AdvReac brought on Verified 11/30/20 14:13 diabetes cortisone injections AdvReac brought on Uncoded 09/30/20 16:32 diabetes sedatives AdvReac "I could Uncoded 09/30/20 16:32 not wake up" steroids AdvReac Hallucinati Uncoded 09/30/20 16:32 ons Physical Exam Vitals: Vital Signs Temp Pulse Resp BP Pulse Ox 12/01/20 06:00 97 17 119/71 98 11/30/20 22:33 106 H 18 128/64 100 11/30/20 18:00 100 18 104/59 99 11/30/20 17:00 92 18 120/68 100 11/30/20 16:00 88 18 108/55 98 11/30/20 15:00 122/74 100 11/30/20 14:00 118/66 97 11/30/20 13:48 97.8 F 103 H 18 116/66 97 Results 11/30/20 14:32 12/01/20 03:51 Cardiac Enzymes 11/30/20 11/30/20 Range/Units 14:32 14:32 AST 39 H (14-36) U/L Troponin I 0.013 (0.000-0.034) ng/mL Coagulation 11/30/20 Range/Units 14:32 PT 14.5 H (9.0-12.0) sec APTT 27.6 (22.0-30.0) sec CBC 11/30/20 Range/Units 14:32 WBC 5.5 (3.8-10.6) k/uL RBC 4.63 (3.80-5.40) m/uL Hgb 10.3 L (11.4-16.0) gm/dL Hct 32.8 L (34.0-46.0) % Plt Count 356 (150-450) k/uL Comprehensive Metabolic Panel 11/30/20 12/01/20 Range/Units 14:32 03:51 Sodium 138 139 (137-145) mmol/L Potassium 4.4 4.2 (3.5-5.1) mmol/L Chloride 102 103 (98-107) mmol/L Carbon Dioxide 27 28 (22-30) mmol/L BUN 30 H 33 H (7-17) mg/dL Creatinine 1.08 H 1.25 H (0.52-1.04) mg/dL Glucose 97 87 (74-99) mg/dL Calcium 8.5 8.8 (8.4-10.2) mg/dL AST 39 H (14-36) U/L ALT 13 (4-34) U/L Alkaline Phosphatase 221 H (38-126) U/L Total Protein 7.1 (6.3-8.2) g/dL Albumin 3.4 L (3.5-5.0) g/dL Current Medications Generic Name Dose Route Start Last Admin Trade Name Freq PRN Reason Stop Dose Admin Albuterol/Ipratropium 3 ml 11/30/20 17:22 Ipratropium-Albuterol 3 Ml Neb INHALATION RT-Q6H PRN Shortness Of Breath Apixaban 5 mg 11/30/20 21:00 11/30/20 20:33 Apixaban 5 Mg Tab PO 5 mg BID LOLY Administration Furosemide 40 mg 11/30/20 18:15 12/01/20 05:44 Furosemide 10 Mg/Ml 4 Ml Vial IV Not Given Q8H LOLY Levothyroxine Sodium 25 mcg 12/01/20 06:30 Levothyroxine 25 Mcg Tab PO DAILY@0630 [facility] Magnesium Hydroxide 2,400 mg 11/30/20 17:22 Magnesium Hydroxide 2,400 Mg/10 Ml Cup PO DAILY PRN Constipation Metoprolol Tartrate 25 mg 11/30/20 21:00 11/30/20 20:33 Metoprolol Tartrate 25 Mg Tab PO 25 mg BID [facility] Administration Midodrine 10 mg 12/01/20 07:30 Midodrine 5 Mg Tab PO AC-TID [facility] Multivitamins 1 each 12/01/20 09:00 Multivitamins, Thera 1 Each Tab PO DAILY [facility] Oxybutynin Chloride 10 mg 12/01/20 09:00 Oxybutynin Xl 5 Mg Tab.Er.24 PO DAILY [facility] Pantoprazole Sodium 40 mg 12/01/20 05:00 Pantoprazole 40 Mg Tablet PO DAILY@0500 [facility] Potassium Chloride 20 meq 12/01/20 09:00 Potassium Chloride Er 20 Meq Tab.Er PO DAILY [facility] 11/30/20 14:32 12/01/20 03:51
--- NOTE | 2020-12-01 13:13 | P.DS ---
Providers Date of admission: 11/30/20 18:14 Attending physician: Trevor Parrish Consults: 11/30/20 18:14 Consult Physician Routine Consulting Provider: [facility] Consult Reason/Comments: Acute pulmonary edema Do you want consulting provider notified?: Yes Primary care physician: Kamaljit Jimi [facility] Course: 75-year-old female was brought ER because of abnormal BNP as per the nurse who accepted the patient in ER. Patient is unable to provide any history to me. We do not know her baseline, in the process of contacting half-way regarding her baseline mental status was told by a physician that patient the is less response to than usual patient does has bilateral pedal edema. Strength in her extensive medical history with diastolic dysfunction severe pulmonary hypertension and severe TR patient the BNP: 3 days ago which was done at the half-way is around 7500 before that it was 7200 and the previous BMPs are lower than that. Because of concerns of altered mental status patient underwent workup for sepsis urinalysis is not impressive for UTI except for a few bacteria, Covid is negative for chest x-ray showing the some diffuse parenchymal changes may have CHF. Urine drug screen is just positive for opiates, trach as per the home medication list patient is not on any opiates from the facility.. 12/01/2020 Patient presently appears to be euvolemic doesn't have any JVD patient does have bilateral lower leg lymphedema. Patient creatinine actually bit worse with the diuretics more diuretics can make it even worse. Patient was switched back to torsemide and patient will be discharged today patient is bit more awake now patient mental status is at baseline patient did have changes consistent with CHF on chest x-ray yesterday. PHYSICAL EXAMINATION: GENERAL: The patient is alert , mostly nonverbal doesn't answer any questions does appear to understand, not in any acute distress. Well developed, well nourished. Obese HEENT: Pupils are round and equally reacting to light. EOMI. No scleral icterus. No conjunctival pallor. Normocephalic, atraumatic. No pharyngeal erythema. No thyromegaly. CARDIOVASCULAR: S1 and S2 present. No murmurs, rubs, or gallops. Doesn't have elevated JVD PULMONARY: Chest is clear to auscultation, no wheezing or crackles. ABDOMEN: Soft, nontender, nondistended, normoactive bowel sounds. No palpable organomegaly. MUSCULOSKELETAL: No joint swelling or deformity. EXTREMITIES: No cyanosis, clubbing, since of bilateral pedal edema up is to be lymphedema and nonpitting edema mostly NEUROLOGICAL: Gross neurological examination did not reveal any focal deficits. SKIN: No rashes. Assessment and Plan Plan: Congestive heart failure, chronic diastolic dysfunction with acute exacerbation, patient received IV Lasix 40 twice a day patient will be discharged on torsemide 20 twice a day. -Possible metabolic encephalopathy baseline mental status is unknown and this metabolic encephalopathy is probably related to CHF. -Severe pulmonary hypertension -Severe tricuspid regurgitation -Chronic kidney disease stage II with baseline creatinine around 1. Chronic kidney disease etiology is probably hypertension -Bilateral chronic lymphedema without any cellulitis -Hypothyroidism -chronic A. fib on Eliquis patient is presently rate controlled - sinus syndrome with pacemaker in place -Fibromyalgia -Hypothyroidism -Severe aortic stenosis severe tricuspid regurgitation and severe pulmonary hypertension with PA pressures of around 89 -Patient's overall prognosis is extremely poor half-way resident functionality is poor. Patient is definitely high risk for readmission because of her multiple medical issues. Plan - Discharge Summary New Discharge Prescriptions: Continue Apixaban [Eliquis] 5 mg PO BID 30 Days #60 tab Tolterodine Tartrate [Detrol LA] 4 mg PO DAILY Midodrine [ProAmatine] 10 mg PO TID@0500,1300,2100 Metoprolol Tartrate [Lopressor] 25 mg PO BID tab Potassium Chloride [Klor-Con 20] 20 meq PO DAILY #0 Magnesium Hydroxide [Milk of Magnesia] 2,400 mg PO DAILY PRN PRN Reason: Constipation Acetaminophen Tab [Tylenol] 650 mg PO Q6H PRN PRN Reason: Pain Omeprazole 20 mg PO DAILY@0500 Multivitamins, Thera [Multivitamin (formulary)] 1 tab PO DAILY Ipratropium-Albuterol Nebulize [Duoneb 0.5 mg-3 mg/3 ml Soln] 3 ml INHALATION RT-Q6H PRN PRN Reason: Shortness Of Breath Prostat 30 ml PO BID Torsemide [Demadex] 20 mg PO BID Levothyroxine Sodium [Synthroid] 25 mcg PO DAILY Discharge Medication List Apixaban [Eliquis] 5 mg PO BID 30 Days #60 tab 10/15/18 [Rx] Tolterodine Tartrate [Detrol LA] 4 mg PO DAILY 09/30/20 [History] Midodrine [ProAmatine] 10 mg PO TID@0500,1300,2100 10/15/20 [History] Metoprolol Tartrate [Lopressor] 25 mg PO BID tab 10/21/20 [Rx] Potassium Chloride [Klor-Con 20] 20 meq PO DAILY #0 10/21/20 [Rx] Acetaminophen Tab [Tylenol] 650 mg PO Q6H PRN 11/30/20 [History] Ipratropium-Albuterol Nebulize [Duoneb 0.5 mg-3 mg/3 ml Soln] 3 ml INHALATION RT-Q6H PRN 11/30/20 [History] Levothyroxine Sodium [Synthroid] 25 mcg PO DAILY 11/30/20 [History] Magnesium Hydroxide [Milk of Magnesia] 2,400 mg PO DAILY PRN 11/30/20 [History] Multivitamins, Thera [Multivitamin (formulary)] 1 tab PO DAILY 11/30/20 [History] Omeprazole 20 mg PO DAILY@0500 11/30/20 [History] Prostat 30 ml PO BID 11/30/20 [History] Torsemide [Demadex] 20 mg PO BID 11/30/20 [History] Follow up Appointment(s)/Referral(s): Kamaljit Krause MD [Primary Care Provider] - 1-2 days Discharge Disposition: TRANSFER TO SNF/ECF
== END 2020-12-01 12:37 ==
LOC: EC 13:46 → 3SCARD 18:14 → INTOOBSV 18:14 → 3SCARD 22:15 → UNDODISIN 12-01 12:37
PROVIDERS: ADMIT Internal Medicine; ATTEND Internal Medicine
DX: I13.0 Hypertensive heart and chronic kidney disease with heart failure and stage 1 through stage 4 chronic kidney disease, or unspecified chronic kidney disease (principal); N18.2 Chronic kidney disease, stage 2 (mild); I50.33 Acute on chronic diastolic (congestive) heart failure; I48.19 Other persistent atrial fibrillation; Z20.822 Contact with and (suspected) exposure to COVID-19; I27.20 Pulmonary hypertension, unspecified; E03.9 Hypothyroidism, unspecified; M79.7 Fibromyalgia; D50.9 Iron deficiency anemia, unspecified; I49.5 Sick sinus syndrome; I08.3 Combined rheumatic disorders of mitral, aortic and tricuspid valves; E87.6 Hypokalemia; R53.1 Weakness; R41.82 Altered mental status, unspecified; I89.0 Lymphedema, not elsewhere classified; Z96.659 Presence of unspecified artificial knee joint; E11.22 Type 2 diabetes mellitus with diabetic chronic kidney disease; Z86.73 Personal history of transient ischemic attack (TIA), and cerebral infarction without residual deficits; Z87.01 Personal history of pneumonia (recurrent); Z90.710 Acquired absence of both cervix and uterus; Z90.89 Acquired absence of other organs; Z90.49 Acquired absence of other specified parts of digestive tract; Z95.0 Presence of cardiac pacemaker; Z87.19 Personal history of other diseases of the digestive system; Z85.828 Personal history of other malignant neoplasm of skin; Z98.42 Cataract extraction status, left eye; Z98.41 Cataract extraction status, right eye; Z98.51 Tubal ligation status; Z88.5 Allergy status to narcotic agent; Z88.8 Allergy status to other drugs, medicaments and biological substances; Z91.040 Latex allergy status; Z79.01 Long term (current) use of anticoagulants; Z79.890 Hormone replacement therapy; Z79.899 Other long term (current) drug therapy; Z80.8 Family history of malignant neoplasm of other organs or systems; Z82.0 Family history of epilepsy and other diseases of the nervous system
CPT/HCPCS: 96374; 99285; 36415; 93005; 83880 ×2; 80053 ×2; 80048; 84484; 85025; 85027; 85610; 85730; 81001; 80306; 87635; 71046; G0378 ×2; J1940

== ENCOUNTER 2021-01-08 02:18 | Emergency (ER) | payer MEDICARE ==
[2021-01-08 02:29] VITALS: BP 136/86; PULSE 96; RESP 18; TEMP 97.3
[2021-01-08 02:57] LABS: Anisocytosis Slight; Basophils % (A) 1 %; Eosinophils # (A) 0.2 k/uL (0-0.7); Eosinophils % (A) 5 %; HCT 36.3 % (34.0-46.0); HGB 10.2 gm/dL (11.4-16.0); Hypochromasia Marked; Lymphocytes # (A) 0.5 k/uL (1.0-4.8); Lymphocytes % (A) 13 %; MCV 67.8 fL (80.0-100.0); Mean Platelet Volume 6.6; Microcytosis Marked; Monocytes # (A) 0.4 k/uL (0-1.0); Monocytes % (A) 10 %; Neutrophils # (A) 2.9 k/uL (1.3-7.7); Neutrophils % (A) 68 %; Platelet Count 254 k/uL (150-450); Poikilocytosis Slight; RBC 5.35 m/uL (3.80-5.40); RDW 17.8 % (11.5-15.5); WBC 4.2 k/uL (3.8-10.6)
[2021-01-08 03:06] LABS: INR 1.2 (<1.2); Partial Thromboplastin Time 26.7 sec (22.0-30.0); Prothrombin Time 12.3 sec (9.0-12.0)
[2021-01-08 03:09] LABS: ALT 10 U/L (4-34); AST 27 U/L (14-36); African American GFR (CKD) 47 (>60 ml/min/1.73 sqM); Albumin 3.5 g/dL (3.5-5.0); Alcohol <10 mg/dL; Alkaline Phosphatase 215 U/L (38-126); Anion Gap 7 mmol/L; Blood Urea Nitrogen 27 mg/dL (7-17); Calcium 9.1 mg/dL (8.4-10.2); Carbon Dioxide 34 mmol/L (22-30); Chloride 99 mmol/L (98-107); Glucose 118 mg/dL (74-99); Non-African American GFR(CKD) 41 (>60 ml/min/1.73 sqM); Potassium 4.2 mmol/L (3.5-5.1); Sodium 140 mmol/L (137-145); Total Bilirubin 0.9 mg/dL (0.2-1.3); Total Protein 7.1 g/dL (6.3-8.2)
--- NOTE | 2021-01-08 03:11 | XR ---
EXAM: XR Pelvis, 1 or 2 Views CLINICAL HISTORY: ITS.REASON XR Reason: Fall TECHNIQUE: Frontal view of the pelvis. COMPARISON: No relevant prior studies available. FINDINGS: Bones/joints: Unremarkable. No acute fracture. No dislocation. Soft tissues: Unremarkable. IMPRESSION: No acute pelvic fractures
--- NOTE | 2021-01-08 03:11 | XR ---
EXAM: XR Chest, 1 View CLINICAL HISTORY: [email or web address].REASON XR Reason: Fall TECHNIQUE: Frontal view of the chest. COMPARISON: No relevant prior studies available. FINDINGS/IMPRESSION: Cardiomegaly with diffuse bilateral perihilar reticular opacities and patchy bibasilar consolidations which may be due to edema, aspiration or infection. Blunting of the right costophrenic angle which may be due to small right pleural effusion. No pneumothorax. Left chest AICD with leads overlying the right atrium and right ventricular apex. No displaced fractures.
--- NOTE | 2021-01-08 03:26 | XR ---
EXAM: XR Left Hand Complete, 3 or More Views CLINICAL HISTORY: [email or web address].REASON XR Reason: fall injury TECHNIQUE: Frontal, lateral and oblique views of the left hand. COMPARISON: No relevant prior studies available. FINDINGS: Bones/joints: Degenerative changes of the distal interphalangeal joints of the second through fifth digits, most prominent of the left third digit. No acute fracture. No dislocation. Soft tissues: Unremarkable. No radiopaque foreign body. IMPRESSION: No acute fractures or traumatic malalignment to the left hand.
--- NOTE | 2021-01-08 03:27 | CT ---
EXAM: CT Head Without Intravenous Contrast CLINICAL HISTORY: ITS.REASON CT Reason: trauma TECHNIQUE: Axial computed tomography images of the head/brain without intravenous contrast. CTDI is 45.2 mGy and DLP is 1019 mGy-cm. This CT exam was performed using one or more of the following dose reduction techniques: automated exposure control, adjustment of the mA and/or kV according to patient size, and/or use of iterative reconstruction technique. COMPARISON: No relevant prior studies available. FINDINGS: Brain: Unremarkable. No hemorrhage. There is patchy periventricular white matter hypoattenuation which is nonspecific most commonly seen in the setting of small vessel ischemic disease. No edema. Ventricles: Unremarkable. No ventriculomegaly. Bones/joints: Unremarkable. No acute fracture. Soft tissues: Unremarkable. Sinuses: Unremarkable as visualized. No acute sinusitis. Mastoid air cells: Unremarkable as visualized. No mastoid effusion. IMPRESSION: 1. No acute intracranial process. 2. Chronic microvascular ischemic changes of the periventricular white matter. EXAM: CT Cervical Spine Without Intravenous Contrast CLINICAL HISTORY: ITS.REASON CT Reason: trauma TECHNIQUE: Axial computed tomography images of the cervical spine without intravenous contrast. CTDI is 8.9 mGy and DLP is 244.2 mGy-cm. This CT exam was performed using one or more of the following dose reduction techniques: automated exposure control, adjustment of the mA and/or kV according to patient size, and/or use of iterative reconstruction technique. COMPARISON: No relevant prior studies available. FINDINGS: Vertebrae: Unremarkable. No acute fracture. Discs/spinal canal/neural foramina: No acute findings. No spinal canal stenosis. Soft tissues: Unremarkable. IMPRESSION: No CT evidence of acute traumatic injury to the cervical spine.
--- NOTE | 2021-01-08 04:33 | ED ---
Fall HPI - General Chief Complaint: Fall Stated Complaint: Fall Time Seen by Provider: 01/08/21 02:26 Source: patient, EMS Mode of arrival: EMS - History of Present Illness Initial Comments: This patient is a 75-year-old woman who presents to be evaluated after fall from bed. The patient states she had rolled to her side to spit some phlegm and then actually rolled out of bed. She did hit her head and also hit her left hand. The patient did not have loss consciousness. Given that she takes a blood thinner, she was sent here for evaluation. The patient states there is a little bit of head and neck discomfort, but she is not sure if it may just be from the collar they placed her in. Denies other pain or injury. MD Complaint: fall -: minutes(s) Fall From: out of bed When Fall Occurred: just prior to arrival Fall Witnessed: no Place Fall Occurred: fdc/SNF Loss of Consciousness: none Prolonged Down Time?: no Symptoms Prior to Fall: none Location: head Location - Extremities: Left: Hand Severity: moderate Quality: dull - Related Data Home Medications Medication Instructions Recorded Confirmed Tolterodine Tartrate [Detrol LA] 4 mg PO DAILY 09/30/20 11/30/20 Midodrine [ProAmatine] 10 mg PO TID@0500,1300,2100 10/15/20 11/30/20 Acetaminophen Tab [Tylenol] 650 mg PO Q6H PRN 11/30/20 11/30/20 Ipratropium-Albuterol Nebulize 3 ml INHALATION RT-Q6H PRN 11/30/20 11/30/20 [Duoneb 0.5 mg-3 mg/3 ml Soln] Levothyroxine Sodium [Synthroid] 25 mcg PO DAILY 11/30/20 11/30/20 Magnesium Hydroxide [Milk of 2,400 mg PO DAILY PRN 11/30/20 11/30/20 Magnesia] Multivitamins, Thera [Multivitamin 1 tab PO DAILY 11/30/20 11/30/20 (formulary)] Omeprazole 20 mg PO DAILY@0500 11/30/20 11/30/20 Prostat 30 ml PO BID 11/30/20 11/30/20 Torsemide [Demadex] 20 mg PO BID 11/30/20 11/30/20 Previous Rx's Medication Instructions Recorded Apixaban [Eliquis] 5 mg PO BID 30 Days #60 tab 10/15/18 Metoprolol Tartrate [Lopressor] 25 mg PO BID tab 10/21/20 Potassium Chloride [Klor-Con 20] 20 meq PO DAILY #0 10/21/20 Allergies Allergy/AdvReac Type Severity Reaction Status Date / Time codeine Allergy Unknown Verified 01/08/21 02:30 latex Allergy Rash/Hives Verified 01/08/21 02:30 hydrocodone bitartrate AdvReac Nausea & Verified 01/08/21 02:30 [From Vicodin] Vomiting & Diarrhea prednisone AdvReac brought on Verified 01/08/21 02:30 diabetes cortisone injections AdvReac brought on Uncoded 01/08/21 02:30 diabetes sedatives AdvReac "I could Uncoded 09/30/20 16:32 not wake up" steroids AdvReac Hallucinati Uncoded 09/30/20 16:32 ons Review of Systems ROS Statement: Those systems with pertinent positive or pertinent negative responses have been documented in the HPI. ROS Other: All systems not noted in ROS Statement are negative. Constitutional: Denies: fever Eyes: Denies: vision change Respiratory: Denies: cough, dyspnea Cardiovascular: Reports: edema. Denies: chest pain, syncope Gastrointestinal: Denies: abdominal pain, nausea, vomiting Musculoskeletal: Reports: as per HPI, arthralgia. Denies: back pain Skin: Denies: rash Neurological: Reports: headache. Denies: weakness, numbness, confusion Past Medical History Past Medical History: Cancer, Heart Failure, CVA/TIA, Diabetes Mellitus, Fibromyalgia, Osteoarthritis (OA), Pneumonia, Renal Disease, Skin Disorder Additional Past Medical History / Comment(s): hx hiatal hernia, diarrhea, leakage of urine/urgency, "dry skin", anemia, skin cancer History of Any Multi-Drug Resistant Organisms: None Reported Past Surgical History: Appendectomy, Cholecystectomy, Heart Catheterization, Hysterectomy, Joint Replacement, Orthopedic Surgery, Pacemaker, Tonsillectomy, Tubal Ligation Additional Past Surgical History / Comment(s): cyril heel spurs, left shoulder rotator cuff, bone biopsy, cyril cataracts Past Anesthesia/Blood Transfusion Reactions: Previous Problems w/ Anesthesia, Family History of Problems w/ Anesthesia, Postoperative Nausea & Vomiting (PONV) Additional Past Anesthesia/Blood Transfusion Reaction / Comment(s): "could not w ismael for several days after knee replacement". brother MELO. Type of Cardiac Device: Permanent Pacemaker Device Placement Date:: 04/2009 Past Psychological History: No Psychological Hx Reported Smoking Status: Never smoker Past Alcohol Use History: None Reported Past Drug Use History: None Reported - Past Family History Father Family Medical History: Cancer Additional Family Medical History / Comment(s): skin Mother Family Medical History: Seizure Disorder General Exam Limitations: no limitations General appearance: alert, in no apparent distress Head exam: Present: atraumatic, normocephalic Eye exam: Present: normal appearance, PERRL, EOMI. Absent: scleral icterus, conjunctival injection ENT exam: Present: normal oropharynx Neck exam: Present: other (In cervical collar) Respiratory exam: Present: normal lung sounds bilaterally. Absent: respiratory distress, wheezes, rales, rhonchi, stridor, chest wall tenderness Cardiovascular Exam: Present: regular rate, irregular rhythm, normal heart sounds. Absent: systolic murmur, diastolic murmur, rubs, gallop GI/Abdominal exam: Present: soft. Absent: distended, tenderness, guarding, rebound, rigid, mass Extremities exam: Present: tenderness (Dorsum of left hand), normal capillary refill, pedal edema (Chronic). Absent: calf tenderness Neurological exam: Present: alert, CN II-XII intact. Absent: motor sensory deficit Skin exam: Present: warm, dry, other (Chronic venous stasis changes bilaterally and ulcer to right lower leg, lateral aspect, no evidence of superinfection) Course Vital Signs 01/08/21 02:21 Temperature 97.3 F L Pulse Rate 96 Respiratory 18 Rate Blood Pressure 136/86 O2 Sat by Pulse 100 Oximetry Medical Decision Making - Lab Data Result diagrams: 01/08/21 02:31 01/08/21 02:31 Lab Results 01/08/21 01/08/21 01/08/21 Range/Units 02:31 02:31 02:31 WBC 4.2 (3.8-10.6) k/uL RBC 5.35 (3.80-5.40) m/uL Hgb 10.2 L (11.4-16.0) gm/dL Hct 36.3 (34.0-46.0) % MCV 67.8 L (80.0-100.0) fL MCH 19.0 L (25.0-35.0) pg MCHC 28.0 L (31.0-37.0) g/dL RDW 17.8 H (11.5-15.5) % Plt Count 254 (150-450) k/uL MPV 6.6 Neutrophils % 68 % Lymphocytes % 13 % Monocytes % 10 % Eosinophils % 5 % Basophils % 1 % Neutrophils # 2.9 (1.3-7.7) k/uL Lymphocytes # 0.5 L (1.0-4.8) k/uL Monocytes # 0.4 (0-1.0) k/uL Eosinophils # 0.2 (0-0.7) k/uL Basophils # 0.0 (0-0.2) k/uL Hypochromasia Marked Poikilocytosis Slight Anisocytosis Slight Microcytosis Marked PT 12.3 H (9.0-12.0) sec INR 1.2 H (<1.2) APTT 26.7 (22.0-30.0) sec Sodium 140 (137-145) mmol/L Potassium 4.2 (3.5-5.1) mmol/L Chloride 99 (98-107) mmol/L Carbon Dioxide 34 H (22-30) mmol/L Anion Gap 7 mmol/L BUN 27 H (7-17) mg/dL Creatinine 1.26 H (0.52-1.04) mg/dL Est GFR (CKD-EPI)AfAm 47 (>60 ml/min/1.73 sqM) Est GFR (CKD-EPI)NonAf 41 (>60 ml/min/1.73 sqM) Glucose 118 H (74-99) mg/dL Plasma Lactic Acid Jorge (0.7-2.0) mmol/L Calcium 9.1 (8.4-10.2) mg/dL Total Bilirubin 0.9 (0.2-1.3) mg/dL AST 27 (14-36) U/L ALT 10 (4-34) U/L Alkaline Phosphatase 215 H (38-126) U/L Troponin I (0.000-0.034) ng/mL Total Protein 7.1 (6.3-8.2) g/dL Albumin 3.5 (3.5-5.0) g/dL Serum Alcohol <10 mg/dL Coronavirus (PCR) (Not Detectd) Blood Type Blood Type Confirm Blood Type Recheck Bld Type Recheck Status Antibody Screen Spec Expiration Date 01/08/21 01/08/21 01/08/21 Range/Units 02:31 02:31 02:31 WBC (3.8-10.6) k/uL RBC (3.80-5.40) m/uL Hgb (11.4-16.0) gm/dL Hct (34.0-46.0) % MCV (80.0-100.0) fL MCH (25.0-35.0) pg MCHC (31.0-37.0) g/dL RDW (11.5-15.5) % Plt Count (150-450) k/uL MPV Neutrophils % % Lymphocytes % % Monocytes % % Eosinophils % % Basophils % % Neutrophils # (1.3-7.7) k/uL Lymphocytes # (1.0-4.8) k/uL Monocytes # (0-1.0) k/uL Eosinophils # (0-0.7) k/uL Basophils # (0-0.2) k/uL Hypochromasia Poikilocytosis Anisocytosis Microcytosis PT (9.0-12.0) sec INR (<1.2) APTT (22.0-30.0) sec Sodium (137-145) mmol/L Potassium (3.5-5.1) mmol/L Chloride (98-107) mmol/L Carbon Dioxide (22-30) mmol/L Anion Gap mmol/L BUN (7-17) mg/dL Creatinine (0.52-1.04) mg/dL Est GFR (CKD-EPI)AfAm (>60 ml/min/1.73 sqM) Est GFR (CKD-EPI)NonAf (>60 ml/min/1.73 sqM) Glucose (74-99) mg/dL Plasma Lactic Acid Jorge 1.4 (0.7-2.0) mmol/L Calcium (8.4-10.2) mg/dL Total Bilirubin (0.2-1.3) mg/dL AST (14-36) U/L ALT (4-34) U/L Alkaline Phosphatase (38-126) U/L Troponin I 0.023 (0.000-0.034) ng/mL Total Protein (6.3-8.2) g/dL Albumin (3.5-5.0) g/dL Serum Alcohol mg/dL Coronavirus (PCR) (Not Detectd) Blood Type O Positive Blood Type Confirm Blood Type Recheck No Previous Record Bld Type Recheck Status CABO Indicated Antibody Screen NEGATIVE Spec Expiration Date 01/11/2021 - 233001/08/21 01/08/21 Range/Units 03:03 04:28 WBC (3.8-10.6) k/uL RBC (3.80-5.40) m/uL Hgb (11.4-16.0) gm/dL Hct (34.0-46.0) % MCV (80.0-100.0) fL MCH (25.0-35.0) pg MCHC (31.0-37.0) g/dL RDW (11.5-15.5) % Plt Count (150-450) k/uL MPV Neutrophils % % Lymphocytes % % Monocytes % % Eosinophils % % Basophils % % Neutrophils # (1.3-7.7) k/uL Lymphocytes # (1.0-4.8) k/uL Monocytes # (0-1.0) k/uL Eosinophils # (0-0.7) k/uL Basophils # (0-0.2) k/uL Hypochromasia Poikilocytosis Anisocytosis Microcytosis PT (9.0-12.0) sec INR (<1.2) APTT (22.0-30.0) sec Sodium (137-145) mmol/L Potassium (3.5-5.1) mmol/L Chloride (98-107) mmol/L Carbon Dioxide (22-30) mmol/L Anion Gap mmol/L BUN (7-17) mg/dL Creatinine (0.52-1.04) mg/dL Est GFR (CKD-EPI)AfAm (>60 ml/min/1.73 sqM) Est GFR (CKD-EPI)NonAf (>60 ml/min/1.73 sqM) Glucose (74-99) mg/dL Plasma Lactic Acid Jorge (0.7-2.0) mmol/L Calcium (8.4-10.2) mg/dL Total Bilirubin (0.2-1.3) mg/dL AST (14-36) U/L ALT (4-34) U/L Alkaline Phosphatase (38-126) U/L Troponin I (0.000-0.034) ng/mL Total Protein (6.3-8.2) g/dL Albumin (3.5-5.0) g/dL Serum Alcohol mg/dL Coronavirus (PCR) Not Detected (Not Detectd) Blood Type Blood Type Confirm O Positive Blood Type Recheck Bld Type Recheck Status Antibody Screen Spec Expiration Date Disposition Clinical Impression: Fall Disposition: HOME SELF-CARE Condition: Fair Instructions (If sedation given, give patient instructions): Fall Prevention for Older Adults (ED) Is patient prescribed a controlled substance at d/c from ED?: No Referrals: Kamaljit Krause MD [Primary Care Provider] - 1-2 days
== END 2021-01-08 06:28 | disposition home or self-care (01) ==
LOC: EC 02:18
DX: R51.9 Headache, unspecified (principal); M79.642 Pain in left hand; R60.9 Edema, unspecified; M54.2 Cervicalgia; L97.919 Non-pressure chronic ulcer of unspecified part of right lower leg with unspecified severity; I87.8 Other specified disorders of veins; I50.9 Heart failure, unspecified; E11.9 Type 2 diabetes mellitus without complications; M79.7 Fibromyalgia; M19.90 Unspecified osteoarthritis, unspecified site; Z86.73 Personal history of transient ischemic attack (TIA), and cerebral infarction without residual deficits; Z20.822 Contact with and (suspected) exposure to COVID-19; Z79.899 Other long term (current) drug therapy; Z79.51 Long term (current) use of inhaled steroids; W06.XXXA Fall from bed, initial encounter; Y92.129 Unspecified place in nursing home as the place of occurrence of the external cause
CPT/HCPCS: 36415; 86900; 86901; 80053; 83605; 84484; 85025; 85610; 85730; 86850; 87635; 72170; 73130; 71045; 72125; 70450; 99285; G0480; 80320; 93005